=== PATIENT | male | born 1970 | race Caucasian/White ===

== ENCOUNTER 2016-07-10 18:46 | Inpatient (IN) | payer SELFPAY ==
[~2016-07-10] VITALS: Ht 175.3 cm; Wt 80.0 kg
[~2016-07-10 18:46] MED LIST: CLIN150 PO; DILA4TAB10 PO; LISI20 PO
[2016-07-10 18:48] VITALS: BP 225/141; PULSE 90; RESP 17; TEMP 98.4; O2SAT 97
[2016-07-10] MEDS ORDERED: LIDOCAINE 1%/EPINEPHrine 1:100,000 SOLN 20 ML VIAL INFIL ONE (19:30)
[2016-07-10] MEDS ORDERED: VANCOMYCIN INJ 1,000 MG in SODIUM CHLOR 0.9% 250 ML INJ 250 ML IV ONE (19:30)
--- NOTE | 2016-07-10 19:33 | PD ---
HPI Chief Complaint: Hypertension Time Seen by Provider: 19:31 Travel History International Travel<30 days: No Contact w/Intl Traveler<30days: No Traveled to known affect area: No History of Present Illness HPI 46-year-old male presents to the emergency department for evaluation of abscess to his right antecubital area. Patient states he hit his arm against a fence on Thursday, 3 days ago and the symptoms started after that. He states the swelling has worsened just since waiting in the waiting room. He denies any current fevers. Patient does report a history of IV drug use. He states that he was clean for a while, but did shoot up Dilaudid 3 days ago. However, he states he has not injected in the area of the abscess. [facility] Past Medical History Atrial Fibrillation: No Cancer: No Cardiovascular Problems: No Diminished Hearing: No Endocrine: No Genitourinary: No Hypertension: Yes Immune Disorder: Yes Musculoskeletal: No Neurologic: No Psychiatric: No Reproductive: No Respiratory: No Integumentary: Yes (absess) Social History Alcohol Use: Yes Tobacco Use: Yes Substance Use: Yes (IV drug user, dilaudid, oxy, barb) Allergies-Medications (Allergen,Severity, Reaction): Coded Allergies: No Known Allergies (Verified , 07/10/16) Reported Meds & Prescriptions Reported Meds & Active Scripts Active Reported Hydromorphone (Hydromorphone HCl) 4 Mg Tab 4 Mg PO Q4H PRN Review of Systems Except as stated in HPI: all other systems reviewed are Neg Physical Exam Narrative GENERAL: Well-developed well-nourished male patient, afebrile. SKIN: Warm and dry. Patient has fluctuant/induration that measures 10 cm x 7 cm to the right antecubital area with surrounding erythema that measures 20 cm x 17 cm. HEAD: Normocephalic. EYES: No scleral icterus. No injection or drainage. NECK: Supple, trachea midline. No JVD or lymphadenopathy. CARDIOVASCULAR: Regular rate and rhythm without murmurs, gallops, or rubs. Right radial pulse 2+. RESPIRATORY: Breath sounds equal bilaterally. No accessory muscle use. GASTROINTESTINAL: Abdomen soft, non-tender, nondistended. MUSCULOSKELETAL: No cyanosis, or edema. Data Data Last Documented VS Vital Signs Date Time Temp Pulse Resp B/P Pulse Ox O2 Delivery O2 Flow Rate FiO2 07/10/16 18:48 98.4 90 17 225/141 97 Orders Basic Metabolic Panel (Bmp) (07/10/16 19:28) Complete Blood Count With Diff (07/10/16 19:28) Blood Culture (07/10/16 19:28) Iv Access Insert/Monitor (07/10/16 19:28) Lidocai-Epi 1%-1:100,000 Inj (Xylocaine- (07/10/16 19:30) Lactic Acid Sepsis Protocol (07/10/16 19:28) Vancomycin Inj (Vancomycin Inj) (07/10/16 19:30) Wound Culture And Gram Stain (07/10/16 19:33) Hydralazine Inj (Apresoline Inj) (07/10/16 20:30) Labs Laboratory Tests Test 07/10/16 07/10/16 19:00 19:10 Lactic Acid Level 1.0 mmol/L White Blood Count 12.9 TH/MM3 Red Blood Count 5.03 MIL/MM3 Hemoglobin 14.6 GM/DL Hematocrit 42.6 % Mean Corpuscular Volume 84.7 FL Mean Corpuscular Hemoglobin 29.0 PG Mean Corpuscular Hemoglobin 34.3 % Concent Red Cell Distribution Width 14.2 % Platelet Count 153 TH/MM3 Mean Platelet Volume 9.0 FL Neutrophils (%) (Auto) 78.8 % Lymphocytes (%) (Auto) 10.4 % Monocytes (%) (Auto) 8.9 % Eosinophils (%) (Auto) 1.6 % Basophils (%) (Auto) 0.3 % Neutrophils # (Auto) 10.2 TH/MM3 Lymphocytes # (Auto) 1.3 TH/MM3 Monocytes # (Auto) 1.1 TH/MM3 Eosinophils # (Auto) 0.2 TH/MM3 Basophils # (Auto) 0.0 TH/MM3 CBC Comment DIFF FINAL Differential Comment Sodium Level 132 MEQ/L Potassium Level 3.3 MEQ/L Chloride Level 95 MEQ/L Carbon Dioxide Level 27.8 MEQ/L Anion Gap 9 MEQ/L Blood Urea Nitrogen 13 MG/DL Creatinine 1.11 MG/DL Estimat Glomerular Filtration 71 ML/MIN Rate Random Glucose 89 MG/DL Calcium Level 8.8 MG/DL MDM Medical Decision Making Medical Screen Exam Complete: Yes Emergency Medical Condition: Yes Medical Record Reviewed: Yes Differential Diagnosis Abscess versus cellulitis versus sepsis Narrative Course 46-year-old male presents to the emergency department for evaluation of abscess to his right antecubital area a has had for 3 days. Patient does have history of IV drug use. CBC, BMP, blood cultures 2, lactic acid are ordered and pending. Patient is given vancomycin 1 g IV. Patient gives verbal consent for incision and drainage. CBC shows elevated WBC count at 12.9, slight neutrophilia 78.8. BMP shows slight hyponatremia of 132, hypokalemia of 3.3. Lactic acid is 1.0. [facility] is paged for admission. Dr. Early accepted admission. Procedures Procedure Narrative INCISION AND DRAINAGE OF ABSCESS: The area was prepped and was sterilely draped. A subcutaneous wheal of 1% Xylocaine with epinephrine with a total number 6 mL was used to anesthetize the area. The area was properly anesthetized. A number 11 scalpel was used to make a 1 -cm incision across the area of the abscess. Cultures were obtained. The abscess was drained an irrigated with normal saline. Quarter inch iodoform packing was placed in the wound. Sterile dressing applied. Patient advised to have packing removed in two days. Diagnosis Primary Impression: Skin abscess Qualified Code: L02.413 - Cutaneous abscess of right upper extremity Additional Impression: Cellulitis of arm, right Admitting Information Admitting Physician Requests: Admit Charisse Medina Jul 10, 2016 19:33
[2016-07-10] MEDS ORDERED: HYDR4TAB PO (19:41)
[2016-07-10 20:07] LABS: AUTOMATED NEUTROPHIL # 10.2 TH/MM3 (1.8-7.7); BASOPHIL % 0.3 % (0.0-2.0); EOSINOPHIL # 0.2 TH/MM3 (0-0.4); EOSINOPHIL % 1.6 % (0.0-4.0); HEMATOCRIT 42.6 % (39.0-51.0); HEMO FLAGS DIFF FINAL; LYMPH % 10.4 % (9.0-44.0); LYMPHOCYTE # 1.3 TH/MM3 (1.0-4.8); MEAN CELL VOLUME 84.7 FL (80.0-100.0); MEAN CORPUSCULAR HGB CONC 34.3 % (32.0-36.0); MONO % 8.9 % (0.0-8.0); NEUT % 78.8 % (16.0-70.0); PLATELET COUNT 153 TH/MM3 (150-450); RED BLOOD COUNT 5.03 MIL/MM3 (4.50-5.90); RED CELL DISTRIBUTION WIDTH 14.2 % (11.6-17.2); WHITE BLOOD COUNT 12.9 TH/MM3 (4.0-11.0)
[2016-07-10 20:20] LABS: BICARBONATE 27.8 MEQ/L (21.0-32.0); POTASSIUM 3.3 MEQ/L (3.5-5.1)
[2016-07-10] MEDS ORDERED: hydrALAZINE HCL 20 MG/ML VIAL IV PUSH ONE (20:30)
[2016-07-10] MEDS ORDERED: oxyCODONE/ACETAMINOPHEN 5 MG/325 MG TAB PO ONE (21:00)
[2016-07-10] MEDS ORDERED: MORPHINE SULFATE 4 MG/ML INJ IV PUSH ONE (23:15)
--- NOTE | 2016-07-10 23:23 | HHI.HP ---
HPI Service [facility] Primary Care Physician No Primary Care Physician Admission Diagnosis abscess, cellulitis, IVDU Diagnoses: Chief Complaint: Right arm abscess Travel History International Travel<30 Days: No Contact w/Intl Traveler <30 Da: No Traveled to Known Affected Are: No History of Present Illness 47-year-old male IV drug abuser presents to the emergency room with complaint of redness and abscess in the right antecubital area. Patient admits that he used that area for IV drug use. He is a very poor historian about timing of events but believes it has been 3 days since he noticed the redness and swelling. He has been getting worse which prompted his emergency room visit. He is unsure whether or not his at fevers or chills. He denies shortness of breath. Evaluation in the emergency room revealed a significant right antecubital abscess. This was drained in the ED. Currently patient reports significant pain in the area. Review of Systems ROS Limitations: Poor Historian Respiratory: DENIES: Cough, Shortness of breath Cardiovascular: DENIES: Chest pain Integumentary: COMPLAINS OF: Rash Neurologic: DENIES: Headache, Localized weakness Other All other systems reviewed are negative. Past Family Social History Past Medical History Hypertension: Untreated. IV drug abuser Past Surgical History Bilateral wrist abscess incision and drainage/washout Reported Medications Reported Meds & Active Scripts Active Reported Hydromorphone (Hydromorphone HCl) 4 Mg Tab 4 Mg PO Q4H PRN Allergies: Coded Allergies: No Known Allergies (Verified , 07/10/16) Family History Reviewed and noncontributory. Social History Patient admits to smoking 1 pack per day, occasional alcohol, admits to using IV Dilaudid, oxycodone, Roxicodone. Physical Exam Vital Signs Vital Signs Date Time Temp Pulse Resp B/P Pulse Ox O2 Delivery O2 Flow Rate FiO2 07/10/16 18:48 98.4 90 17 225/141 97 Physical Exam GENERAL: Disheveled male SKIN: The patient has multiple needle mcclain bilateral arms. On the right antecubital area there is a large area of fluctuance, approximately 10 x 6 cm there is surrounding erythema extending to the mid forearm and mid upper arm HEAD: Atraumatic. Normocephalic. No temporal or scalp tenderness. EYES: Pupils equal round and reactive. Extraocular motions intact. No scleral icterus. No injection or drainage. ENT: Nose without bleeding, purulent drainage or septal hematoma. Throat without erythema, tonsillar hypertrophy or exudate. Uvula midline. Airway patent. NECK: Trachea midline. No JVD or lymphadenopathy. Supple, nontender, no meningeal signs. CARDIOVASCULAR: Regular rate and rhythm without. 2/6 KASSY murmur best heard in the tricuspid area RESPIRATORY: Clear to auscultation. Breath sounds equal bilaterally. No wheezes , rales, or rhonchi. GASTROINTESTINAL: Abdomen soft, non-tender, nondistended. No hepato-splenomegaly , or palpable masses. No guarding. MUSCULOSKELETAL: Extremities without clubbing, cyanosis, or edema. No joint tenderness, effusion, or edema noted. No calf tenderness. Negative Homans sign bilaterally. NEUROLOGICAL: Awake and alert. Cranial nerves II through XII intact. Motor and sensory grossly within normal limits. Five out of 5 muscle strength in all muscle groups. Normal speech. Laboratory Laboratory Tests Test 07/10/16 07/10/16 19:00 19:10 Lactic Acid Level 1.0 White Blood Count 12.9 Red Blood Count 5.03 Hemoglobin 14.6 Hematocrit 42.6 Mean Corpuscular Volume 84.7 Mean Corpuscular Hemoglobin 29.0 Mean Corpuscular Hemoglobin 34.3 Concent Red Cell Distribution Width 14.2 Platelet Count 153 Mean Platelet Volume 9.0 Neutrophils (%) (Auto) 78.8 Lymphocytes (%) (Auto) 10.4 Monocytes (%) (Auto) 8.9 Eosinophils (%) (Auto) 1.6 Basophils (%) (Auto) 0.3 Neutrophils # (Auto) 10.2 Lymphocytes # (Auto) 1.3 Monocytes # (Auto) 1.1 Eosinophils # (Auto) 0.2 Basophils # (Auto) 0.0 CBC Comment DIFF FINAL Differential Comment Sodium Level 132 Potassium Level 3.3 Chloride Level 95 Carbon Dioxide Level 27.8 Anion Gap 9 Blood Urea Nitrogen 13 Creatinine 1.11 Estimat Glomerular Filtration 71 Rate Random Glucose 89 Calcium Level 8.8 Date/Time Procedure Status Source Growth 07/10/16 20:15 Gram Stain Received Wound Arm Pending 07/10/16 20:15 Wound Culture Received Wound Arm Pending 07/10/16 19:00 Aerobic Blood Culture Received Blood Peripheral Pending 07/10/16 19:00 Anaerobic Blood Culture Received Blood Peripheral Pending Result Diagram: 07/10/16190907/10/161909 Assessment and Plan Problem List: (1) Abscess of right arm ICD Code: L02.413 Status: Acute (2) IV drug user ICD Code: F19.90 Status: Acute (3) Hypertension ICD Code: I10 Status: Acute (4) Heart murmur ICD Code: R01.1 Status: Acute Assessment and Plan 46-year-old male IV drug user with: Right arm abscess: Status post I&D in the emergency room. There is a rather large area of fluctuance and I'm concerned for deeper abscesses. - Will obtain a CT scan of the right upper extremity. He may need general surgery consult for deeper debridement. - Continue vancomycin - Awaiting wound cultures. Follow blood cultures. - Percocet every 4 hours as needed for pain. Morphine IV for breakthrough. - Elevate arm IV drug user: The patient has been counseled on the detrimental effect of IV drug use on his health. He would benefit from an inpatient drug rehabilitation facility. - Ativan and clonidine as needed for withdrawal. - Follow blood cultures. High risk for bacteremia and endocarditis. Hypertension: Untreated. Patient has not been compliant with medications. - Start lisinopril 20 mg daily - Clonidine as needed Tobacco abuse: Patient was counseled. GI prophylaxis: Stool softener PRN constipation. DVT PPx: SCDs Physician Certification 2 Midnight Certification Type: Admission for Inpatient Services Order for Inpatient Services The services are ordered in accordance with Medicare regulations or non- Medicare payer requirements, as applicable. In the case of services not specified as inpatient-only, they are appropriately provided as inpatient services in accordance with the 2-midnight benchmark. Estimated LOS (days): 5 days is the estimated time the patient will need to remain in the hospital, assuming treatment plan goals are met and no additional complications. Post-Hospital Plan: Home Adriel Early MD Jul 10, 2016 23:23
[2016-07-10 23:25] VITALS: BP 188/120; PULSE 77; RESP 24; O2SAT 98
[2016-07-11] MEDS ORDERED: ONDANSETRON HCL 4 MG/2 ML VIAL IVP PRN
[2016-07-11] MEDS ORDERED: SODIUM CHLORIDE 0.9% FLUSH 5 ML FLUSH FLUSH PRN
[2016-07-11] MEDS ORDERED: POTASSIUM CHLORIDE 20 MEQ CONTROLLED RELEASE TAB PO ONE
[2016-07-11] MEDS ORDERED: NALOXONE HCL 0.4 MG/ML AMP IV PRN
[2016-07-11] MEDS ORDERED: ACETAMINOPHEN 325 MG TAB PO PRN
[2016-07-11] MEDS ORDERED: ENALAPRILAT 1.25 MG/ML VIAL IV PUSH PRN
[2016-07-11] MEDS ORDERED: Vancomycin Consult Pharmacy 1 EA OTHER SCH (00:15)
[2016-07-11 01:07] VITALS: BP 135/86
[2016-07-11] MEDS ORDERED: cloNIDine HCL 0.1 MG TAB PO PRN (01:15)
[2016-07-11 01:43] VITALS: BP 146/88; PULSE 69; RESP 20; TEMP 98.4; O2SAT 96
[2016-07-11] MEDS ORDERED: IOHEXOL 350 MG/ML 10 ML VIAL (for RAD DIAG) IV ONE (03:41)
--- NOTE | 2016-07-11 03:54 | RADRPT ---
EXAM DATE/TIME: 07/11/2016 03:24 [facility] COMPARISON: No previous studies available for comparison. INDICATIONS : Right elbow swelling. Evaluate abscess. IV CONTRAST: 80 cc Omnipaque 350 (iohexol) IV RADIATION DOSE: 17.94 CTDIvol (mGy) MEDICAL HISTORY : Hypertension. IVDU SURGICAL HISTORY : None. ENCOUNTER: Initial ACUITY: 3 days PAIN SCALE: 7/10 LOCATION: Right elbow TECHNIQUE: Volumetric scanning of the elbow was performed. Using automated exposure control and adjustment of t he mA and/or kV according to patient size, radiation dose was kept as low as reasonably achievable to obtain optimal diagnostic quality images. FINDINGS: No definite fractures, dislocations, lytic, or sclerotic lesions are seen. There is extensive sw elling with subcutaneous edema in the patient's forearm. In the antecubital fossa superficially, ther e is an approximate 3.4 cm round area of fluid collection suspicious for abscess and in the center of it there are couple of blood vessels coursing through it. One of them appears to be a thrombosed vei n possibly superficial thrombophlebitis. CONCLUSION: Extensive swelling and subcutaneous edema with focal abscess in the antecubital fossa and superficial thrombophlebitis. Arcelia Issa MD on July 11, 2016 at 3:49 Board Certified Radiologist. This report was verified electronically.
[2016-07-11] MEDS ORDERED: VANCOMYCIN INJ 1,250 MG in SODIUM CHLOR 0.9% 250 ML INJ 250 ML IV SCH (04:00)
[2016-07-11 04:10] VITALS: BP 150/96; PULSE 75; RESP 19; TEMP 98; O2SAT 95
[2016-07-11] MEDS ORDERED: KETOROLAC TROMETHAMINE 60 MG/2 ML (IM) VIAL IM ONE (05:00)
[2016-07-11 07:50] LABS: AUTOMATED NEUTROPHIL # 7.9 TH/MM3 (1.8-7.7); BASOPHIL # 0.1 TH/MM3 (0-0.2); BASOPHIL % 0.5 % (0.0-2.0); EOSINOPHIL # 0.4 TH/MM3 (0-0.4); EOSINOPHIL % 3.2 % (0.0-4.0); HEMATOCRIT 39.6 % (39.0-51.0); HEMO FLAGS DIFF FINAL; LYMPH % 14.5 % (9.0-44.0); LYMPHOCYTE # 1.6 TH/MM3 (1.0-4.8); MEAN CELL VOLUME 85.1 FL (80.0-100.0); MEAN CORPUSCULAR HEMOGLOBIN 28.6 PG (27.0-34.0); MEAN CORPUSCULAR HGB CONC 33.6 % (32.0-36.0); NEUT % 69.8 % (16.0-70.0); PLATELET COUNT 153 TH/MM3 (150-450); RED BLOOD COUNT 4.65 MIL/MM3 (4.50-5.90); RED CELL DISTRIBUTION WIDTH 14.1 % (11.6-17.2); WHITE BLOOD COUNT 11.3 TH/MM3 (4.0-11.0)
[2016-07-11] MEDS ORDERED: LISINOPRIL 10 MG TAB PO SCH (09:00)
[2016-07-11] MEDS ORDERED: SODIUM CHLORIDE 0.9% FLUSH 5 ML FLUSH FLUSH SCH (09:00)
[2016-07-11 09:34] LABS: BICARBONATE 27.1 MEQ/L (21.0-32.0); POTASSIUM 3.2 MEQ/L (3.5-5.1)
[2016-07-12] MEDS ORDERED: PHARMACY ORDERED LAB XX ONE (03:45)
== END 2016-07-11 10:03 | disposition home or self-care (01) | DRG 603 ==
LOC: NEPA 18:46 → NEDA 20:42 → NEPFCDU 07-11 01:19
PROVIDERS: ADMIT Internal Medicine; ATTEND Internal Medicine
PROC: 0X9B0ZX Drainage of Right Elbow Region, Open Approach, Diagnostic (ICD-10-PCS; principal; 2016-07-10)
DX: L02.413 Cutaneous abscess of right upper limb (principal); I10 Essential (primary) hypertension; F19.10 Other psychoactive substance abuse, uncomplicated; F17.210 Nicotine dependence, cigarettes, uncomplicated; R01.1 Cardiac murmur, unspecified; Z91.14 Patient's other noncompliance with medication regimen; L03.113 Cellulitis of right upper limb
CPT/HCPCS: 10061; 73201; 80048; 83605; 85025; 86403; 87040; 87070; 87186; 87205; 96374; 96375; J0360; J1885; J2270; J3370; J7050; Q9967

== ENCOUNTER 2017-02-19 16:47 | Inpatient (IN) | payer SELFPAY ==
[~2017-02-19] VITALS: Ht 180.3 cm; Wt 79.1 kg
[2017-02-19] VITALS (7 sets, daily range): BP systolic 127–167; BP diastolic 69–120; PULSE 65–85; RESP 14–16; TEMP 100–102.3; O2SAT 97–99
[~2017-02-19 16:47] MED LIST changes: -CLIN150 PO; -DILA4TAB10 PO; +HYDR4TAB PO; -LISI20 PO; +VANCOMYCIN INJ 1,000 MG in SODIUM CHLOR 0.9% 250 ML INJ 250 ML IV ONE
[2017-02-19] MEDS ORDERED: VANCOMYCIN INJ 1,000 MG in SODIUM CHLOR 0.9% 250 ML INJ 250 ML IV STA (17:00)
[2017-02-19] MEDS ORDERED: ACETAMINOPHEN 325 MG TAB PO ONE (17:00)
[2017-02-19] MEDS ORDERED: SODIUM CHLOR 0.9% 1000 ML INJ 1,000 ML IV ONE ×2 (17:00)
[2017-02-19] MEDS ORDERED: SODIUM CHLOR 0.9% 1000 ML INJ 400 ML IV ONE (17:00)
[2017-02-19] MEDS ORDERED: PIPERACIL-TAZO 4.5 GM PREMIX 100 ML IV STA (17:00)
--- NOTE | 2017-02-19 17:15 | PD ---
HPI . Decreased level of consciousness Chief Complaint: Decreased level of consciousness Time Seen by Provider: 16:56 Travel History International Travel<30 days: No Contact w/Intl Traveler<30days: No History of Present Illness HPI Patient presents by [facility] with the chief complaint of decreased level of consciousness. He is an IV drug abuser. He has had redness and swelling of his left upper extremity for the last several days along with a fever. He started feeling disoriented today. Rescue was subsequently called and he was brought to the hospital. He is also complaining with cough. He is complaining of 10/10 pain in his left upper extremity. PFSH Past Medical History Atrial Fibrillation: No Cancer: No Cardiovascular Problems: No Diminished Hearing: No Endocrine: No Genitourinary: No Hypertension: Yes Immune Disorder: Yes Musculoskeletal: No Neurologic: No Psychiatric: No Reproductive: No Respiratory: No Integumentary: Yes (absess) Past Surgical History Other Surgery: Yes (hand ) Social History Alcohol Use: Yes (occasionaly ) Tobacco Use: Yes Substance Use: Yes (IV drug user, dilaudid, oxy, barb) Allergies-Medications (Allergen,Severity, Reaction): Coded Allergies: *MDRO Multi-Drug Resistant Organism (Verified Adverse Reaction, Unknown, ) MRSA (arm)-07/10/16 Reported Meds & Prescriptions Reported Meds & Active Scripts Active No Active Prescriptions or Reported Medications Review of Systems Except as stated in HPI: all other systems reviewed are Neg General / Constitutional: Positive: Fever, Chills Respiratory: Positive: Cough Musculoskeletal: Positive: Edema, Pain Skin: Positive Change in Pigmentation Physical Exam Narrative GENERAL: Lying on the stretcher with his eyes closed in no acute distress. He does respond appropriately to questions. SKIN: warm/dry. Left upper extremity is red, hot, swollen and tender. No fluctuance. No drainage. Track mcclain on both upper extremities. HEAD: Normocephalic. EYES: Pupils equal and round. No scleral icterus. No injection or drainage. ENT: No nasal bleeding or discharge. Mucous membranes pink and moist. NECK: Trachea midline. Full range of motion without pain.. CARDIOVASCULAR: Regular rate and rhythm. Heart sounds are normal. RESPIRATORY: No accessory muscle use. Clear to auscultation. Breath sounds equal bilaterally. GASTROINTESTINAL: Abdomen soft. Nontender. Bowel sounds present. Nondistended. . MUSCULOSKELETAL: No obvious deformities. NEUROLOGICAL: Awake and alert. No obvious cranial nerve deficits. Motor grossly within normal limits. Normal speech. PSYCHIATRIC: Appropriate mood and affect; insight and judgment poor. Data Data Last Documented VS Vital Signs Date Time Temp Pulse Resp B/P (MAP) Pulse Ox O2 Delivery O2 Flow Rate FiO2 02/19/17 17:22 81 16 167/120 (136) 99 Room Air 02/19/17 17:08 102.3 Orders Orders Complete Blood Count With Diff (02/19/17 17:00) Comprehensive Metabolic Panel (02/19/17 17:00) Lactic Acid Sepsis Protocol (02/19/17 17:00) Blood Culture (02/19/17 17:00) Chest, Single Ap (02/19/17 17:00) Ecg Monitoring (02/19/17 17:00) Iv Access Insert/Monitor (02/19/17 17:00) Oximetry (02/19/17 17:00) Acetaminophen (Tylenol) (02/19/17 17:00) Piperacil-Tazo 4.5 Gm Premix (Zosyn 4.5 (02/19/17 17:00) Vancomycin Inj (Vancomycin Inj) (02/19/17 17:00) Sodium Chlor 0.9% 1000 Ml Inj (Ns 1000 M (02/19/17 17:00) Sodium Chlor 0.9% 1000 Ml Inj (Ns 1000 M (02/19/17 17:00) Sodium Chlor 0.9% 1000 Ml Inj (Ns 1000 M (02/19/17 17:00) Labs Laboratory Tests Test 02/19/17 17:05 White Blood Count 22.3 TH/MM3 Red Blood Count 4.79 MIL/MM3 Hemoglobin 14.1 GM/DL Hematocrit 41.7 % Mean Corpuscular Volume 87.0 FL Mean Corpuscular Hemoglobin 29.4 PG Mean Corpuscular Hemoglobin Concent 33.8 % Red Cell Distribution Width 14.1 % Platelet Count 127 TH/MM3 Mean Platelet Volume 8.9 FL Neutrophils (%) (Auto) 85.0 % Lymphocytes (%) (Auto) 6.2 % Monocytes (%) (Auto) 8.6 % Eosinophils (%) (Auto) 0.0 % Basophils (%) (Auto) 0.2 % Neutrophils # (Auto) 19.0 TH/MM3 Lymphocytes # (Auto) 1.4 TH/MM3 Monocytes # (Auto) 1.9 TH/MM3 Eosinophils # (Auto) 0.0 TH/MM3 Basophils # (Auto) 0.0 TH/MM3 CBC Comment DIFF FINAL Differential Comment Blood Urea Nitrogen 20 MG/DL Creatinine 1.44 MG/DL Random Glucose 110 MG/DL Total Protein 7.3 GM/DL Albumin 3.1 GM/DL Calcium Level 8.4 MG/DL Alkaline Phosphatase 75 U/L Aspartate Amino Transf (AST/SGOT) 17 U/L Alanine Aminotransferase (ALT/SGPT) 25 U/L Total Bilirubin 0.9 MG/DL Sodium Level 131 MEQ/L Potassium Level 3.0 MEQ/L Chloride Level 92 MEQ/L Carbon Dioxide Level 30.1 MEQ/L Anion Gap 9 MEQ/L Estimat Glomerular Filtration Rate 52 ML/MIN Lactic Acid Level 0.9 mmol/L MDM Medical Decision Making Medical Screen Exam Complete: Yes Emergency Medical Condition: Yes Medical Record Reviewed: Yes (this patient has been seen here in the past for similar problems related to IV drug abuse.) Differential Diagnosis My differential diagnosis includes but is not limited to localized wound infection, cellulitis, abscess Narrative Course This patient presents with fevers and chills, decreased level of consciousness and redness and swelling of his left upper extremity. Septic workup has been initiated. Last Impressions Chest X-Ray 02/19/17 1700 Signed Impressions: Service Date/Time: , February 19, 2017 17:12 - CONCLUSION: No acute disease. There is no evidence of pneumonia. Austen Morrison MD CBC & BMP Diagram 02/19/17 17:05 Total Protein 7.3, Albumin 3.1 L, Calcium Level 8.4 L, Alkaline Phosphatase 75, Aspartate Amino Transf (AST/SGOT) 17, Alanine Aminotransferase (ALT/SGPT) 25, Total Bilirubin 0.9 Lactic acid is 0.9. Sepsis Criteria SIRS Criteria (2 or more): Temp > 100.9 or < 96.8, WBC > 74736, < 4000 or > 10 % bands Sepsis Criteria (SIRS+source): Infect source susp/known Criteria Outcome: Meets SIRS criteria, Meets sepsis criteria Diagnosis Primary Impression: Fever Qualified Codes: R50.9 - Fever, unspecified Additional Impressions: Cellulitis Qualified Codes: L03.114 - Cellulitis of left upper limb IV drug abuse Sepsis Qualified Codes: A41.9 - Sepsis, unspecified organism Admitting Information Admitting Physician Requests: Admit Scripts No Active Prescriptions or Reported Meds Condition: Florencia Barnes MD Feb 19, 2017 17:15
--- NOTE | 2017-02-19 17:51 | RADRPT ---
EXAM DATE/TIME: 02/19/2017 17:12 [facility] COMPARISON: CHEST SINGLE AP, April 02, 2015, 17:34. INDICATIONS : Cough. MEDICAL HISTORY : None. SURGICAL HISTORY : None. ENCOUNTER: Initial ACUITY: 1 day PAIN SCORE: 0/10 LOCATION: Bilateral chest FINDINGS: A single view of the chest demonstrates the lungs to be symmetrically aerated without evidence of mas s, infiltrate or effusion. The cardiomediastinal contours are unremarkable. Osseous structures are intact. CONCLUSION: No acute disease. There is no evidence of pneumonia. Austen Morrison MD on February 19, 2017 at 17:49 Board Certified Radiologist. This report was verified electronically.
[2017-02-19 17:52] LABS: BASOPHIL % 0.2 % (0.0-2.0); HEMATOCRIT 41.7 % (39.0-51.0); HEMO FLAGS DIFF FINAL; LYMPH % 6.2 % (9.0-44.0); LYMPHOCYTE # 1.4 TH/MM3 (1.0-4.8); MEAN CORPUSCULAR HEMOGLOBIN 29.4 PG (27.0-34.0); MEAN CORPUSCULAR HGB CONC 33.8 % (32.0-36.0); MONO % 8.6 % (0.0-8.0); PLATELET COUNT 127 TH/MM3 (150-450); RED BLOOD COUNT 4.79 MIL/MM3 (4.50-5.90); RED CELL DISTRIBUTION WIDTH 14.1 % (11.6-17.2); WHITE BLOOD COUNT 22.3 TH/MM3 (4.0-11.0)
[2017-02-19 18:08] LABS: ALT (GPT) 25 U/L (12-78); ANION GAP 9 MEQ/L (5-15); AST (GOT) 17 U/L (15-37); BICARBONATE 30.1 MEQ/L (21.0-32.0); BLOOD UREA NITROGEN 20 MG/DL (7-18); CHLORIDE 92 MEQ/L (98-107); GLOMERULAR FILTRATION RATE 52 ML/MIN (>89); SODIUM (NA) 131 MEQ/L (136-145)
[2017-02-19 18:10] LABS: ALKALINE PHOSPHATASE 75 U/L (45-117); TOTAL BILIRUBIN ADULT 0.9 MG/DL (0.2-1.0)
--- NOTE | 2017-02-19 18:36 | HHI.HP ---
[facility] Primary Care Physician No Primary Care Physician Admission Diagnosis sepsis, cellulitis, IVDA Diagnoses: Chief Complaint: Left arm cellulitis Travel History International Travel<30 Days: No Contact w/Intl Traveler <30 Da: No Traveled to Known Affected Are: No History of Present Illness This is a 47-year-old male with current IV drug user with Dilaudid, oxycodone, and Roxicodone who presented with fatigue and left arm cellulitis. Patient stated that he last used IV drugs 2 days ago. He has some swelling then erythema after use. Patient stated that since it got worse he presented to the ED. He denies any other types of drug use. Stated he stopped smoking tobacco long time ago. Denies any alcohol use. Patient is lethargic during the interview but he is AAO 3. He is able to answer question appropriately. His nurse is at the bedside. All other review of symptoms reviewed and negative. Past Family Social History Past Medical History Hypertension: Untreated. IV drug abuser Past Surgical History Bilateral wrist abscess incision and drainage/washout Reported Medications Reported Meds & Active Scripts Active No Active Prescriptions or Reported Medications Allergies: Coded Allergies: *MDRO Multi-Drug Resistant Organism (Verified Adverse Reaction, Unknown, ) MRSA (arm)-07/10/16 Active Ordered Medications Current Medications Acetaminophen (Tylenol) 650 mg ONCE ONCE PO Last administered on 02/19/17 17: 19; Start 02/19/17 at 17:00; Stop 02/19/17 at 17:04; Status DC Piperacillin Sod/ Tazobactam Sod 100 ml @ 200 mls/hr ONCE STAT IV Last administered on 02/19/17 17:19; Start 02/19/17 at 17:00; Stop 02/19/17 at 17:29 ; Status DC Vancomycin HCl 1000 mg/Sodium Chloride 250 ml @ 250 mls/hr ONCE STAT IV Last administered on 02/19/17 17:19; Start 02/19/17 at 17:00; Stop 02/19/17 at 17:59 ; Status DC Sodium Chloride 1,000 ml @ 1,000 mls/hr Q1H ONCE IV Last administered on 17:15; Start 02/19/17 at 17:00; Stop 02/19/17 at 17:59; Status DC Sodium Chloride 1,000 ml @ 1,000 mls/hr Q1H ONCE IV Last administered on 17:16; Start 02/19/17 at 17:00; Stop 02/19/17 at 17:59; Status DC Sodium Chloride 400 ml @ 1,000 mls/hr Q24M ONCE IV Last administered on 17:16; Start 02/19/17 at 17:00; Stop 02/19/17 at 17:23; Status DC Sodium Chloride 1,000 ml @ 150 mls/hr Q6H40M IV ; Start 02/19/17 at 18:31; Status UNV Sodium Chloride (NS Flush) 2 ml UNSCH PRN IV FLUSH FLUSH AFTER USING IV ACCESS ; Start 02/19/17 at 18:45; Status UNV Sodium Chloride (NS Flush) 2 ml BID IV FLUSH ; Start 02/19/17 at 21:00; Status UNV Acetaminophen (Tylenol) 650 mg Q4H PRN PO TEMP > 100.4; Start 02/19/17 at 18:45 ; Status UNV Ondansetron HCl (Zofran Inj) 4 mg Q6H PRN IVP NAUSEA OR VOMITING; Start at 18:45; Status UNV Enoxaparin Sodium (Lovenox Inj) 40 mg Q24H SQ ; Start 02/19/17 at 18:45; Status UNV Naloxone HCl (Narcan Inj) 0.4 mg UNSCH PRN IV SEE LABEL COMMENTS; Start at 18:45; Status UNV Senna/Docusate Sodium (Pearl-Colace) 1 tab BID PO ; Start 02/19/17 at 21:00; Status UNV Magnesium Hydroxide (Milk Of Magnesia Liq) 30 ml Q12H PRN PO MILD - MODERATE CONSTIPATION; Start 02/19/17 at 18:45; Status UNV Sennosides (Senokot) 17.2 mg Q12H PRN PO MODERATE - SEVERE CONSTIPATION; Start 02/19/17 at 18:45; Status UNV Bisacodyl (Dulcolax Supp) 10 mg DAILY PRN RECTAL SEVERE CONSITIPATION; Start at 18:45; Status UNV Family History Family history reviewed negative. Social History Denies any tobacco use. Denies alcohol use. IV drugs with Dilaudid, oxycodone and roxycodone. Physical Exam Vital Signs Vital Signs Date Time Temp Pulse Resp B/P (MAP) Pulse Ox O2 Delivery O2 Flow Rate FiO2 02/19/17 18:34 73 14 132/81 (98) 97 Room Air 02/19/17 17:22 81 16 167/120 (136) 99 Room Air 02/19/17 17:11 99 Room Air 02/19/17 17:08 102.3 85 15 162/105 (124) 98 02/19/17 17:05 102.3 85 16 162/105 (124) 97 Room Air Physical Exam GENERAL: This is a well-nourished, well-developed patient, in no apparent distress but who is lethargic. SKIN: Left forearm positive for cellulitis, swelling, induration, tenderness to palpation. HEAD: Atraumatic. Normocephalic. No temporal or scalp tenderness. EYES: Pupils equal round and reactive. Extraocular motions intact. No scleral icterus. No injection or drainage. ENT: Nose without bleeding, purulent drainage or septal hematoma. Throat without erythema, tonsillar hypertrophy or exudate. Uvula midline. Airway patent. NECK: Trachea midline. No JVD or lymphadenopathy. Supple, nontender, no meningeal signs. CARDIOVASCULAR: Regular rate and rhythm without murmurs, gallops, or rubs. RESPIRATORY: Clear to auscultation. Breath sounds equal bilaterally. No wheezes , rales, or rhonchi. GASTROINTESTINAL: Abdomen soft, non-tender, nondistended. No hepato-splenomegaly , or palpable masses. No guarding. MUSCULOSKELETAL: Extremities without clubbing, cyanosis, or edema. No joint tenderness, effusion, or edema noted. No calf tenderness. Negative Homans sign bilaterally. NEUROLOGICAL: Lethargic AAO 3. Cranial nerves II through XII intact. Motor and sensory grossly within normal limits. Laboratory Laboratory Tests Test 02/19/17 17:05 White Blood Count 22.3 Red Blood Count 4.79 Hemoglobin 14.1 Hematocrit 41.7 Mean Corpuscular Volume 87.0 Mean Corpuscular Hemoglobin 29.4 Mean Corpuscular Hemoglobin Concent 33.8 Red Cell Distribution Width 14.1 Platelet Count 127 Mean Platelet Volume 8.9 Neutrophils (%) (Auto) 85.0 Lymphocytes (%) (Auto) 6.2 Monocytes (%) (Auto) 8.6 Eosinophils (%) (Auto) 0.0 Basophils (%) (Auto) 0.2 Neutrophils # (Auto) 19.0 Lymphocytes # (Auto) 1.4 Monocytes # (Auto) 1.9 Eosinophils # (Auto) 0.0 Basophils # (Auto) 0.0 CBC Comment DIFF FINAL Differential Comment Blood Urea Nitrogen 20 Creatinine 1.44 Random Glucose 110 Total Protein 7.3 Albumin 3.1 Calcium Level 8.4 Alkaline Phosphatase 75 Aspartate Amino Transf (AST/SGOT) 17 Alanine Aminotransferase (ALT/SGPT) 25 Total Bilirubin 0.9 Sodium Level 131 Potassium Level 3.0 Chloride Level 92 Carbon Dioxide Level 30.1 Anion Gap 9 Estimat Glomerular Filtration Rate 52 Lactic Acid Level 0.9 Date/Time Source Procedure Growth Status 02/19/17 17:05 Blood Peripheral Aerobic Blood Culture Pending Received 02/19/17 17:05 Blood Peripheral Anaerobic Blood Culture Pending Received Result Diagram: 02/19/17 1705 02/19/17 170 Imaging Last Impressions Chest X-Ray 02/19/17 170 Signed Impressions: Service Date/Time: January 17:12 - CONCLUSION: No acute disease. There is no evidence of pneumonia. MD Natalie Pradhan VTE Risk Assessment Caprini VTE Risk Assessment: Mod/High Risk (score >= 2) Caprini Risk Assessment Model Point Value = 1 Point Value = 2 Point Value = 3 Point Value = 5 Age 41-60 Minor surgery BMI > 25 kg/m2 Swollen legs Varicose veins or History of unexplained or recurrent spontaneous Oral contraceptives or hormone replacement Sepsis (< 1 month) Serious lung disease, including pneumonia (< 1 month) Abnormal pulmonary function Acute myocardial infarction Congestive heart failure (< 1 month) History of inflammatory bowel disease Medical patient at bed rest Age 61-74 Arthroscopic surgery Major open surgery (> 45 min) Laparoscopic surgery (> 45 min) Malignancy Confined to bed (> 72 hours) Immobilizing plaster cast Central venous access Age >= 75 History of VTE Family history of VTE Factor V Leiden Prothrombin [id number] Lupus anticoagulant Anticardiolipin antibodies Elevated serum homocysteine Heparin-induced thrombocytopenia Other congenital or acquired thrombophilia Stroke (< 1 month) Elective arthroplasty Hip, pelvis, or leg fracture Acute spinal cord injury (< 1 month) Prophylaxis Regimen Total Risk Factor Score Risk Level Prophylaxis Regimen 0-1 Low Early ambulation 2 Moderate Order ONE of the following: *Sequential Compression Device (SCD) *Heparin 5000 units SQ BID 3-4 Higher Order ONE of the following medications: *Heparin 5000 units SQ TID *Enoxaparin/Lovenox 40 mg SQ daily (WT < 150 kg, CrCl > 30 mL/min) *Enoxaparin/Lovenox 30 mg SQ daily (WT < 150 kg, CrCl > 10-29 mL/min) *Enoxaparin/Lovenox 30 mg SQ BID (WT < 150 kg, CrCl > 30 mL/min) AND/OR *Sequential Compression Device (SCD) 5 or more Highest Order ONE of the following medications: *Heparin 5000 units SQ TID (Preferred with Epidurals) *Enoxaparin/Lovenox 40 mg SQ daily (WT < 150 kg, CrCl > 30 mL/min) *Enoxaparin/Lovenox 30 mg SQ daily (WT < 150 kg, CrCl > 10-29 mL/min) *Enoxaparin/Lovenox 30 mg SQ BID (WT < 150 kg, CrCl > 30 mL/min) AND *Sequential Compression Device (SCD) Assessment and Plan Assessment and Plan 47-year-old IV drug user who presented with left arm cellulitis Sepsis -Patient has cellulitis, leukocytosis, and fever. He meets sepsis criteria. -He received IV fluid bolus. We will continue with maintenance fluids. We treat with vancomycin and Zosyn. He already received 1 dose by ED physician. -Blood cultures already obtained. Due to concerns for endocarditis/bacteremia will get an echo since he is an IV drug user. Consult infectious disease. Left arm cellulitis and IV drug user -Will treat patient empirically with vancomycin and Zosyn. -Continue to monitor clinically. -Since he does have an area of induration will get an Doppler. This may be due to thrombophlebitis. IV drug user with Dilaudid, Roxicodone, oxycodone -Education given to patient stating that continue use can lead to . Patient stated he understood. Renal insufficiency -Most likely prerenal. Baseline was creatinine 1.01. Currently today is 1.44. -Avoid nephrotoxins. Will give IVF. -Strict ins and outs. Continue to monitor creatinine GFR Hypokalemia -replaces as needed. DVT prophylaxis -Lovenox renally dosed. Code Status full Discussed Condition With patient and nurse Physician Certification 2 Midnight Certification Type: Admission for Inpatient Services Order for Inpatient Services The services are ordered in accordance with Medicare regulations or non- Medicare payer requirements, as applicable. In the case of services not specified as inpatient-only, they are appropriately provided as inpatient services in accordance with the 2-midnight benchmark. Estimated LOS (days): 5 5 days is the estimated time the patient will need to remain in the hospital, assuming treatment plan goals are met and no additional complications. Post-Hospital Plan: [place] Aurora Huerta MD Feb 19, 2017 18:36
[2017-02-19] MEDS ORDERED: NALOXONE HCL 0.4 MG/ML AMP IV PRN (18:45)
[2017-02-19] MEDS ORDERED: Vancomycin Consult Pharmacy 1 EA OTHER SCH (18:45)
[2017-02-19] MEDS ORDERED: LACTULOSE SYRUP 20 GM/30 ML CUP PO PRN (18:45)
[2017-02-19] MEDS ORDERED: MAGNESIUM HYDROXIDE SUSP 30 ML CUP PO PRN (18:45)
[2017-02-19] MEDS ORDERED: BISACODYL 10 MG SUPP RECTAL PRN (18:45)
[2017-02-19] MEDS ORDERED: SENNOSIDES 8.6 MG TAB PO PRN (18:45)
[2017-02-19] MEDS ORDERED: SODIUM CHLORIDE 0.9% FLUSH 10 ML FLUSH IV FLUSH PRN (18:45)
[2017-02-19] MEDS ORDERED: ONDANSETRON HCL 4 MG/2 ML VIAL IVP PRN (18:45)
[2017-02-19] MEDS ORDERED: ACETAMINOPHEN 325 MG TAB PO PRN (18:45)
[2017-02-19] MEDS ORDERED: ENOXAPARIN SODIUM 40 MG/0.4 ML SYRINGE SQ SCH (18:45)
--- NOTE | 2017-02-19 20:49 | RADRPT ---
EXAM DATE/TIME: 02/19/2017 19:30 [facility] COMPARISON: No previous studies available for comparison. INDICATIONS : Left arm swelling. MEDICAL HISTORY : Hypertension. MRSA. Abcsess. IV drug user. SURGICAL HISTORY : Hand surgery. ENCOUNTER: Initial ACUITY: 2 day PAIN SCORE: 4/10 LOCATION: Left arm. FINDINGS: There is spontaneous flow documented in the brachial, basilic, cephalic, axillary, and subclavian vei ns. The vessels are compressible and augmentation response is documented. No filling defects are se en. The flow is phasic with respiration. Direction of flow in the jugular vein is caudal. There is a complex mass/fluid collection seen in the left antecubital fossa region measuring 5.6 x 3. 8 x 2.1 cm. There is superficial edema seen. CONCLUSION: 1. No DVT. 2. 5.6 cm complex mass/fluid collection likely related to an abscess. Shan Herr MD on February 19, 2017 at 20:45 Board Certified Radiologist. This report was verified electronically.
[2017-02-19] MEDS: SODIUM CHLORIDE 0.9% FLUSH 10 ML FLUSH IV FLUSH SCH (21:00)
[2017-02-19] MEDS ORDERED: POTASSIUM CHLORIDE 20 MEQ CONTROLLED RELEASE TAB PO ONE (22:00)
[2017-02-19] MEDS: SODIUM CHLOR 0.9% 1000 ML INJ 1,000 ML IV SCH (22:53)
[2017-02-19] MEDS ORDERED: ENOXAPARIN SODIUM 30 MG/0.3 ML SYRINGE SQ SCH (23:00)
[2017-02-20] VITALS (7 sets, daily range): BP systolic 152–164; BP diastolic 94–111; PULSE 71–79; RESP 17–20; TEMP 97.6–100.2; O2SAT 95–98
[2017-02-20] MEDS: DOCUSATE SODIUM 50 MG/SENNA 8.6 MG TAB PO SCH ×3 (01:02→21:00)
[2017-02-20] MEDS: PIPERACIL-TAZO 3.375 GM PREMIX 50 ML IV SCH ×5 (01:04→23:42)
[2017-02-20] MEDS: SODIUM CHLOR 0.9% 1000 ML INJ 1,000 ML IV SCH ×2 (01:11→06:05)
[2017-02-20] MEDS: SODIUM CHLORIDE 0.9% FLUSH 10 ML FLUSH IV FLUSH SCH ×2 (08:06→21:00)
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
[2017-02-20] MEDS ORDERED: amLODIPine BESYLATE 5 MG TAB PO ONE (11:00)
[2017-02-20] MEDS: traMADol HCL 50 MG TAB PO PRN ×2 (11:15→20:36)
[2017-02-20] MEDS ORDERED: HALOPERIDOL LACTATE 5 MG/ML AMP IM PRN (12:30)
[2017-02-20] MEDS ORDERED: LORazepam 2 MG/ML VIAL IV PUSH PRN ×3 (12:30)
[2017-02-20] MEDS ORDERED: FLUMAZENIL 0.5 MG/5 ML VIAL IV PUSH PRN (12:30)
[2017-02-20] MEDS ORDERED: HEPARIN SODIUM - SQ 10,000 UNITS/ML VIAL SQ SCH (12:30)
[2017-02-20] MEDS: FOLIC ACID 1 MG TAB PO SCH (13:22)
[2017-02-20] MEDS: PANTOPRAZOLE SOD 40 MG DELAYED RELEASE TAB PO SCH (13:22)
[2017-02-20] MEDS: MULTIVITAMINS/MINERALS THERAPEUTIC TAB PO SCH (13:22)
[2017-02-20] MEDS: VANCOMYCIN INJ 1,200 MG in SODIUM CHLOR 0.9% 250 ML INJ 250 ML IV SCH (13:22)
[2017-02-20] MEDS: THIAMINE HCL 100 MG TAB PO SCH (13:22)
--- NOTE | 2017-02-20 16:01 | ECHRPT ---
Indication: SEPSIS ENDOCARDITIS CONCLUSIONS Normal left ventricular size. Wall thickness is normal. The left ventricular systolic function is mildly reduced with an estimated ejection fraction in the range of 45- 50%. Global hypokinesis. Mild mitral valve regurgitation. Trace aortic valve regurgitation. BP: 167 / 120 HR: 85 Rhythm: Sinus Technical Quality:Good FINDINGS LEFT VENTRICLE Normal left ventricular size. Wall thickness is normal. The left ventricular systolic function is mildly reduced with an estimated ejection fraction in the range of 45- 50%. RIGHT VENTRICLE Normal right ventricular size and systolic function. LEFT ATRIUM The left atrial size is normal. RIGHT ATRIUM The right atrial size is normal. ATRIAL SEPTUM Normal atrial septal thickness without atrial level shunting by limited color doppler interrogation. AORTA The aortic root and proximal ascending aorta are normal in size on limited imaging. MITRAL VALVE Mild mitral valve regurgitation. Mobile echodensity is noted on the mitral valve consistent with vegetation. Moderate thickening of the mitral valve leaflets. AORTIC VALVE Trace aortic valve regurgitation. TRICUSPID VALVE Structurally normal tricuspid valve. No tricuspid valve stenosis or regurgitation. PULMONARY VALVE The pulmonary valve is not well visualized. VESSELS The inferior vena cava is normal in size. PERICARDIUM No pericardial effusion. Mojgan Ibanez MD, FACC (Electronically Signed) Final Date:20 February 2017 16:00
[2017-02-20 16:16] LABS: HEMATOCRIT 36.1 % (39.0-51.0); MEAN CELL VOLUME 88.2 FL (80.0-100.0); MEAN CORPUSCULAR HEMOGLOBIN 28.9 PG (27.0-34.0); MEAN CORPUSCULAR HGB CONC 32.8 % (32.0-36.0); PLATELET COUNT 120 TH/MM3 (150-450); REVIEW FLAG FINAL; WHITE BLOOD COUNT 17.3 TH/MM3 (4.0-11.0)
[2017-02-20 16:38] LABS: BICARBONATE 23.4 MEQ/L (21.0-32.0)
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
[2017-02-20] MEDS: CLINDAMYCIN 150 MG CAP PO SCH (18:49)
[2017-02-20] MEDS: ENOXAPARIN SODIUM 40 MG/0.4 ML SYRINGE SQ SCH (20:37)
[2017-02-20] MEDS: ACETAMINOPHEN 325 MG TAB PO PRN (20:37)
[2017-02-20] MEDS: cloNIDine HCL 0.1 MG TAB PO PRN (20:37)
[2017-02-21 00:11] VITALS: BP 119/78; PULSE 58; RESP 18; TEMP 98.1; O2SAT 96
[2017-02-21] MEDS: VANCOMYCIN INJ 1,200 MG in SODIUM CHLOR 0.9% 250 ML INJ 250 ML IV SCH ×2 (02:18→13:06)
[2017-02-21] MEDS: CLINDAMYCIN 150 MG CAP PO SCH ×4 (02:19→16:45)
[2017-02-21] MEDS: SODIUM CHLOR 0.9% 1000 ML INJ 1,000 ML IV SCH ×4 (03:51→16:45)
[2017-02-21 04:00] VITALS: BP 133/85; PULSE 62; RESP 18; TEMP 99.5; O2SAT 96
[2017-02-21] MEDS: PIPERACIL-TAZO 3.375 GM PREMIX 50 ML IV SCH ×4 (06:17→23:00)
[2017-02-21 08:00] VITALS: BP 154/102; PULSE 64; RESP 18; TEMP 98.7; O2SAT 96
[2017-02-21] MEDS: PANTOPRAZOLE SOD 40 MG DELAYED RELEASE TAB PO SCH (08:36)
[2017-02-21] MEDS: FOLIC ACID 1 MG TAB PO SCH (08:36)
[2017-02-21] MEDS: MULTIVITAMINS/MINERALS THERAPEUTIC TAB PO SCH (08:36)
[2017-02-21] MEDS: amLODIPine BESYLATE 5 MG TAB PO SCH (08:36)
[2017-02-21] MEDS: THIAMINE HCL 100 MG TAB PO SCH (08:36)
[2017-02-21] MEDS: SODIUM CHLORIDE 0.9% FLUSH 10 ML FLUSH IV FLUSH SCH ×2 (08:37→21:34)
[2017-02-21] MEDS: DOCUSATE SODIUM 50 MG/SENNA 8.6 MG TAB PO SCH ×2 (08:37→21:00)
[2017-02-21 08:44] LABS: AUTOMATED NEUTROPHIL # 9.5 TH/MM3 (1.8-7.7); BASOPHIL # 0.1 TH/MM3 (0-0.2); BASOPHIL % 0.4 % (0.0-2.0); EOSINOPHIL # 0.1 TH/MM3 (0-0.4); EOSINOPHIL % 0.9 % (0.0-4.0); HEMATOCRIT 33.4 % (39.0-51.0); HEMO FLAGS DIFF FINAL; LYMPH % 11.6 % (9.0-44.0); LYMPHOCYTE # 1.4 TH/MM3 (1.0-4.8); MEAN CELL VOLUME 86.6 FL (80.0-100.0); MEAN CORPUSCULAR HEMOGLOBIN 29.6 PG (27.0-34.0); MEAN CORPUSCULAR HGB CONC 34.2 % (32.0-36.0); MONO % 7.7 % (0.0-8.0); NEUT % 79.4 % (16.0-70.0); PLATELET COUNT 108 TH/MM3 (150-450); RED BLOOD COUNT 3.86 MIL/MM3 (4.50-5.90); RED CELL DISTRIBUTION WIDTH 14.1 % (11.6-17.2); WHITE BLOOD COUNT 11.9 TH/MM3 (4.0-11.0)
[2017-02-21 09:09] LABS: ALT (GPT) 22 U/L (12-78); ANION GAP 8 MEQ/L (5-15); AST (GOT) 14 U/L (15-37); BICARBONATE 24.4 MEQ/L (21.0-32.0); BLOOD UREA NITROGEN 15 MG/DL (7-18); CHLORIDE 103 MEQ/L (98-107); GLOMERULAR FILTRATION RATE 76 ML/MIN (>89); MAGNESIUM 1.8 MG/DL (1.5-2.5); POTASSIUM 3.1 MEQ/L (3.5-5.1); SODIUM (NA) 135 MEQ/L (136-145)
[2017-02-21 09:27] LABS: ALKALINE PHOSPHATASE 52 U/L (45-117); FREE T4 1.41 NG/DL (0.76-1.46); TOTAL BILIRUBIN ADULT 0.5 MG/DL (0.2-1.0)
[2017-02-21] MEDS ORDERED: IOHEXOL 350 MG/ML 10 ML VIAL (for RAD DIAG) IVCONTRAST ONE (09:55)
--- NOTE | 2017-02-21 10:05 | RADRPT ---
EXAM DATE/TIME: 02/21/2017 09:26 [facility] COMPARISON: No previous studies available for comparison. INDICATIONS : Right swelling and redness. IV CONTRAST: 100 cc Omnipaque 350 (iohexol) IV ; Cumulative dose for multiple exams. RADIATION DOSE: 40.41 CTDIvol (mGy) MEDICAL HISTORY : Cardiovascular disease. Hypertension. IV drug user. SURGICAL HISTORY : None. ENCOUNTER: Initial ACUITY: 1 day PAIN SCALE: 4/10 LOCATION: Left humerus TECHNIQUE: Volumetric scanning of the humerus was performed. Using automated exposure control and adjustment of the mA and/or kV according to patient size, radiation dose was kept as low as reasonably achievable to obtain optimal diagnostic quality images. DICOM format image data is available electronically for review and comparison. FINDINGS: BONES: No evidence of fracture. Alignment is within normal limits. JOINTS: No evidence of joint narrowing or effusion. SOFT TISSUES: Muscles, tendons and neurovascular structures are grossly unremarkable. There is diffuse subcutaneous edema of the right arm from the level of the proximal humerus and visualized proximal forearm. There is also diffuse skin thickening seen from just above the elbow inferiorly characteristic of cellulit is. On the medial aspect of the right arm at the elbow in the antecubital region, a irregular rim-enh ancing fluid collection is seen measuring 5.4 2.4 cm in AP and transverse dimension extending toward the skin surface and this is characteristic of an abscess. It appears multiloculated. It extends appr oximately 4.9 cm in cephalocaudal extent. CONCLUSION: 1. Cellulitis, subcutaneous edema and right antecubital region loculated fluid collection characteris tic of an abscess. Jon Pratt MD on February 21, 2017 at 10:01 Board Certified Radiologist. This report was verified electronically.
--- NOTE | 2017-02-21 10:11 | RADRPT ---
EXAM DATE/TIME: 02/21/2017 09:21 [facility] COMPARISON: CHEST SINGLE AP, February 19, 2017, 17:12. INDICATIONS : Right swelling and redness. IV CONTRAST: 100 cc Omnipaque 350 (iohexol) IV ; Cumulative dose for multiple exams. RADIATION DOSE: 5.88 CTDIvol (mGy) MEDICAL HISTORY : Cardiovascular disease. Hypertension. SURGICAL HISTORY : None. ENCOUNTER: Initial ACUITY: 1 day PAIN SCALE: 8/10 LOCATION: Right chest TECHNIQUE: Volumetric scanning of the chest was performed. Using automated exposure control and adjustment of t he mA and/or kV according to patient size, radiation dose was kept as low as reasonably achievable to obtain optimal diagnostic quality images. DICOM format image data is available electronically for review and comparison. Follow-up recommendations for detected pulmonary nodules are based at a minimum on nodule size and pa tient risk factors according to Fleischner Society Guidelines. FINDINGS: Coronary artery calcification is noted as well as small bilateral effusions and right lower lobe cons olidation. Cholelithiasis is present. There is diffuse subcutaneous edema of the left hand and a rim- enhancing irregular fluid collection in the right antecubital region is noted measuring 5.3 x 3 cm ch aracteristic of an abscess. There is aneurysmal dilatation of the ascending aorta measuring 4.4 x 2.7 cm. A few scattered atherosclerotic calcifications are present. CONCLUSION: 1. Small bilateral effusions and right lower lobe basilar airspace disease. 2. Aortic aneurysm. 3. Atherosclerosis. 4. Right arm abscess and cellulitis. Jon Pratt MD on February 21, 2017 at 10:08 Board Certified Radiologist. This report was verified electronically.
[2017-02-21 10:33] LABS: HEMOGLOBIN A1a 1.1 %; HEMOGLOBIN A1b 1.4 %; HEMOGLOBIN Ao 86.1 %; HEMOGLOBIN P3 3.7 %
[2017-02-21] MEDS: SODIUM CHLORIDE 0.9% FLUSH 10 ML FLUSH IV FLUSH PRN (11:18)
[2017-02-21] MEDS: LORazepam 1 MG TAB PO PRN (11:32)
[2017-02-21 12:00] VITALS: BP 151/96; PULSE 60; RESP 18; TEMP 98.5; O2SAT 98
--- NOTE | 2017-02-21 12:40 | HHI.PR ---
Subjective Remarks No acute events overnight. Afebrile with stable vital signs. Patient continues to complain of uncontrolled, throbbing pain in his left forearm that radiates up his arm. He states he previously took 8 mg of Dilaudid IV daily which he has been doing for years. Objective Vital Signs Date Time Temp Pulse Resp B/P (MAP) Pulse Ox O2 Delivery O2 Flow Rate FiO2 02/21/17 08:00 98.7 64 18 154/102 (119) 96 02/21/17 04:00 99.5 62 18 133/85 (101) 96 02/21/17 00:11 98.1 58 18 119/78 (92) 96 02/20/17 21:00 Room Air 02/20/17 20:00 100.2 73 18 164/104 (124) 98 02/20/17 20:00 73 02/20/17 16:00 97.6 73 20 152/99 (116) 96 I/O 02/20/17 02/20/17 02/20/17 02/21/17 02/21/17 02/21/17 07:00 15:00 23:00 07:00 15:00 23:00 Intake Total 1000 ml 300 ml 480 ml 2003 ml Output Total 500 ml 700 ml Balance 500 ml 300 ml -220 ml 2003 ml Intake Oral 480 ml IV Total 1000 ml 300 ml 2003 ml Output Urine Total 500 ml 700 ml Result Diagram: 02/21/17 0820 02/21/17 0820 Imaging Last Impressions Upper Extremity CT 02/21/17 0000 Signed Impressions: Service Date/Time: Tuesday, February 21, 2017 09:26 - CONCLUSION: 1. Cellulitis, subcutaneous edema and right antecubital region loculated fluid collection characteristic of an abscess. Jno Pratt MD Chest CT 02/21/17 0000 Signed Impressions: Service Date/Time: Tuesday, February 21, 2017 09:21 - CONCLUSION: 1. Small bilateral effusions and right lower lobe basilar airspace disease. 2. Aortic aneurysm. 3. Atherosclerosis. 4. Right arm abscess and cellulitis. Jon Pratt MD Chest X-Ray 02/19/17 1700 Signed Impressions: Service Date/Time: January 17:12 - CONCLUSION: No acute disease. There is no evidence of pneumonia. Austen Morrison MD Upper Extremity Ultrasound 02/19/17 0000 Signed Impressions: Service Date/Time: January 19:30 - CONCLUSION: 1. No DVT. 2. 5.6 cm complex mass/fluid collection likely related to an abscess. Shan Herr MD Objective Remarks GENERAL: This is a well-nourished, well-developed patient, in moderate distress , patient appears to be uncomfortable. SKIN: Left forearm positive for cellulitis, swelling, induration, tenderness to palpation. HEAD: Atraumatic. Normocephalic. No temporal or scalp tenderness. EYES: Pupils equal round and reactive. Extraocular motions intact. No scleral icterus. No injection or drainage. ENT: Nose without bleeding, purulent drainage or septal hematoma. Throat without erythema, tonsillar hypertrophy or exudate. Uvula midline. Airway patent. Tongue is midline NECK: Trachea midline. No JVD or lymphadenopathy. Supple, nontender, no meningeal signs. CARDIOVASCULAR: Regular rate and rhythm without murmurs, gallops, or rubs. S1 and S2 no S3 or S4 no heave or thrill or rub or gallop RESPIRATORY: Clear to auscultation. Breath sounds equal bilaterally. No wheezes , rales, or rhonchi. GASTROINTESTINAL: Abdomen soft, non-tender, nondistended. No hepato-splenomegaly , or palpable masses. No guarding. MUSCULOSKELETAL: Extremities without clubbing, cyanosis, has swelling and edema to left upper extremity. No joint tenderness, effusion, or edema noted. No calf tenderness. Negative Homans sign bilaterally. Left upper extremity with swelling and induration tenderness cellulitis and warmth and erythema NEUROLOGICAL: Lethargic AAO 3. Cranial nerves II through XII intact. Motor and sensory grossly within normal limits. Insight and judgment are limited mood and behavior are good A/P Assessment and Plan 47-year-old IV drug user who presented with left arm cellulitis-history of crushing up pills shooting them up Sepsis -2/2 left arm cellulitis -Cont abx -Treatment for cellulitis as below Left arm cellulitis and IV drug user -ID consulted; cont vanc/zosyn -ECHO showing vegetation on mitral valve -BCx negative x 2 days -CT left UE c/w abscess; general surgery consulted for I&D -Pain control with Percocet IV drug user with Dilaudid, Roxicodone, oxycodone -Education given to patient stating that continue use can lead to . Patient stated he understood. Renal insufficiency -Returned to baseline with IVF Hypokalemia -replaces as needed. DVT prophylaxis -Lovenox renally dosed. Discharge Planning Pending clinical improvement Joyce Chang MD R3 Feb 21, 2017 12:40
[2017-02-21] MEDS ORDERED: POTASSIUM CHLORIDE 20 MEQ CONTROLLED RELEASE TAB PO ONE (12:45)
[2017-02-21] MEDS ORDERED: PHARMACY ORDERED LAB ONE (12:45)
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
[2017-02-21] MEDS ORDERED: LIDOCAINE HCL 2% 50 ML VIAL ONE (18:42)
[2017-02-21] MEDS ORDERED: BUPIVACAINE HCL PF 0.5% 30 ML VIAL ONE (18:42)
[2017-02-21] MEDS ORDERED: DO NOT ADM ANY ANTICOAGULANT DRUGS PRN (20:20)
[2017-02-21 21:00] VITALS: BP 157/101; PULSE 69; RESP 18; TEMP 98.2; O2SAT 96
[2017-02-21 21:08] VITALS: PULSE 68
[2017-02-21] MEDS: oxyCODONE/ACETAMINOPHEN 7.5 MG/325 MG TAB PO PRN (21:40)
[2017-02-21] MEDS: ENOXAPARIN SODIUM 40 MG/0.4 ML SYRINGE SQ SCH (22:00)
[2017-02-22] VITALS: BP 172/110; PULSE 60; RESP 20; TEMP 97.5; O2SAT 100
[2017-02-22] MEDS: SODIUM CHLOR 0.9% 1000 ML INJ 1,000 ML IV SCH ×2 (00:50→21:25)
[2017-02-22] MEDS: VANCOMYCIN 1,500 MG/NS 500 ML IV SCH ×6 (00:50→16:58)
[2017-02-22] MEDS: CLINDAMYCIN 150 MG CAP PO SCH ×4 (00:51→17:44)
[2017-02-22] MEDS: cloNIDine HCL 0.1 MG TAB PO PRN (00:51)
[2017-02-22 04:00] VITALS: BP 147/97; PULSE 59; RESP 18; TEMP 98.2; O2SAT 97
[2017-02-22] MEDS: PIPERACIL-TAZO 3.375 GM PREMIX 50 ML IV SCH ×4 (05:00→23:55)
[2017-02-22] MEDS: oxyCODONE/ACETAMINOPHEN 7.5 MG/325 MG TAB PO PRN ×2 (09:20→13:27)
[2017-02-22] MEDS: IBUPROFEN 800 MG TAB PO PRN (09:20)
[2017-02-22] MEDS: PANTOPRAZOLE SOD 40 MG DELAYED RELEASE TAB PO SCH (09:20)
[2017-02-22] MEDS: MULTIVITAMINS/MINERALS THERAPEUTIC TAB PO SCH (09:20)
[2017-02-22] MEDS: DOCUSATE SODIUM 50 MG/SENNA 8.6 MG TAB PO SCH ×2 (09:20→21:00)
[2017-02-22] MEDS: amLODIPine BESYLATE 5 MG TAB PO SCH (09:21)
[2017-02-22] MEDS: THIAMINE HCL 100 MG TAB PO SCH (09:21)
[2017-02-22] MEDS: FOLIC ACID 1 MG TAB PO SCH (09:21)
[2017-02-22] MEDS: LORazepam 2 MG TAB PO PRN ×2 (09:24→13:28)
--- NOTE | 2017-02-22 11:41 | HHI.PR ---
Subjective Remarks Postop day 1 status post I&D left upper extremity secondary to loculated abscess. Patient states his pain is better controlled with Percocet. Also states he is feeling better since his procedure. He has no complaints at this time. Denies nausea/vomiting. Voiding without difficulty. Objective Vitals Vital Signs Date Time Temp Pulse Resp B/P (MAP) Pulse Ox O2 Delivery O2 Flow Rate FiO2 02/22/17 04:00 98.2 59 18 147/97 (114) 97 02/22/17 00:00 97.5 60 20 172/110 (130) 100 02/21/17 21:30 Nasal Cannula 2.00 02/21/17 21:08 68 02/21/17 21:00 98.2 69 18 157/101 (119) 96 02/21/17 20:40 71 19 158/99 (118) 98 Nasal Cannula 2 02/21/17 20:35 71 19 157/90 (112) 98 Nasal Cannula 2 02/21/17 20:26 98.5 75 18 169/87 (114) 97 Nasal Cannula 2 02/21/17 12:00 98.5 60 18 151/96 (114) 98 I/O 02/21/17 02/21/17 02/21/17 02/22/17 02/22/17 02/22/17 06:59 14:59 22:59 06:59 14:59 22:59 Intake Total 2003 ml 1480 ml 1134 ml Output Total 1100 ml 1300 ml Balance 2003 ml 380 ml -166 ml Intake Oral 480 ml 240 ml IV Total 2003 ml 1000 ml 894 ml Output Urine Total 1000 ml 1300 ml Estimated Blood Loss 100 ml # Bowel Movements 2 Result Diagram: 02/21/17 0820 02/21/17 0820 Objective Remarks GENERAL: This is a well-nourished, well-developed patient, in moderate distress , patient appears to be uncomfortable. SKIN: Left forearm positive for cellulitis, swelling, induration, tenderness to palpation. HEAD: Atraumatic. Normocephalic. No temporal or scalp tenderness. EYES: Pupils equal round and reactive. Extraocular motions intact. No scleral icterus. No injection or drainage. ENT: Nose without bleeding, purulent drainage or septal hematoma. Throat without erythema, tonsillar hypertrophy or exudate. Uvula midline. Airway patent. Tongue is midline NECK: Trachea midline. No JVD or lymphadenopathy. Supple, nontender, no meningeal signs. CARDIOVASCULAR: Regular rate and rhythm without murmurs, gallops, or rubs. S1 and S2 no S3 or S4 no heave or thrill or rub or gallop RESPIRATORY: Clear to auscultation. Breath sounds equal bilaterally. No wheezes , rales, or rhonchi. GASTROINTESTINAL: Abdomen soft, non-tender, nondistended. No hepato-splenomegaly , or palpable masses. No guarding. MUSCULOSKELETAL: Extremities without clubbing, cyanosis, has swelling and edema to left upper extremity, and her from yesterday. Dressing in place. Dressing clean/dry/intact. No joint tenderness, effusion, or edema noted. No calf tenderness. Negative Homans sign bilaterally. NEUROLOGICAL: Lethargic AAO 3. Cranial nerves II through XII intact. Motor and sensory grossly within normal limits. Insight and judgment are limited mood and behavior are good A/P Problem List: (1) Cellulitis of left arm ICD Code: L03.114 - Cellulitis of left upper limb (2) Abscess of left arm ICD Code: L02.414 - Cutaneous abscess of left upper limb (3) IV drug user ICD Code: F19.90 - Other psychoactive substance use, unspecified, uncomplicated Status: Acute (4) IV drug abuse ICD Code: F19.10 - Other psychoactive substance abuse, uncomplicated Status: Acute (5) Cellulitis ICD Code: L03.90 - Cellulitis, unspecified Status: Acute (6) Fever ICD Code: R50.9 - Fever, unspecified Status: Acute (7) Skin abscess ICD Code: L02.91 - Cutaneous abscess, unspecified Status: Acute (8) HTN (hypertension) ICD Code: I10 - Essential (primary) hypertension Status: Acute (9) Renal insufficiency ICD Code: N28.9 - Disorder of kidney and ureter, unspecified (10) Hypokalemia ICD Code: E87.6 - Hypokalemia Assessment and Plan 47-year-old IV drug user who presented with left arm cellulitis-history of crushing up pills shooting them up Sepsis -Resolved -2/2 left arm cellulitis -Cont abx -Treatment for cellulitis as below Left arm cellulitis and IV drug user -ID consulted; cont vanc/zosyn -ECHO showing vegetation on mitral valve -BCx negative x 3 days -CT left UE c/w abscess; general surgery consulted for I&D performed 02/21. Wound cultures pending. -Pain control with Percocet IV drug user with Dilaudid, Roxicodone, oxycodone -Education given to patient stating that continue use can lead to . Patient stated he understood. Renal insufficiency -Returned to baseline with IVF Hypokalemia -replaces as needed. DVT prophylaxis -Lovenox renally dosed. Discharge Planning Pending ID recommendations Problem Qualifiers (1) Cellulitis: Qualified Codes: L03.114 - Cellulitis of left upper limb (2) Fever: Qualified Codes: R50.9 - Fever, unspecified Joyce Chang MD R3 Feb 22, 2017 11:41
--- NOTE | 2017-02-22 13:08 | HHI.PR ---
Subjective Remarks pt feeling better Objective Vital Signs Date Time Temp Pulse Resp B/P (MAP) Pulse Ox O2 Delivery O2 Flow Rate FiO2 02/22/17 04:00 98.2 59 18 147/97 (114) 97 02/22/17 00:00 97.5 60 20 172/110 (130) 100 02/21/17 21:30 Nasal Cannula 2.00 02/21/17 21:08 68 02/21/17 21:00 98.2 69 18 157/101 (119) 96 02/21/17 20:40 71 19 158/99 (118) 98 Nasal Cannula 2 02/21/17 20:35 71 19 157/90 (112) 98 Nasal Cannula 2 02/21/17 20:26 98.5 75 18 169/87 (114) 97 Nasal Cannula 2 I/O 02/21/17 02/21/17 02/21/17 02/22/17 02/22/17 02/22/17 07:00 15:00 23:00 07:00 15:00 23:00 Intake Total 2003 ml 1480 ml 1134 ml Output Total 1100 ml 1300 ml Balance 2003 ml 380 ml -166 ml Intake Oral 480 ml 240 ml IV Total 2003 ml 1000 ml 894 ml Output Urine Total 1000 ml 1300 ml Estimated Blood Loss 100 ml # Bowel Movements 2 Result Diagram: 02/21/17 0820 02/21/17 0820 Objective Remarks left arm less edematous significantly; NVI throughout; drainage clean, no purulence moves all fingers easily, no swelling no induration still erythematous Assessment and Plan Problem List: (1) Cellulitis ICD Codes: L03.90 - Cellulitis, unspecified Status: Acute Plan: much improved begin dsg changes elevation of left arm will remove drain tomorrow (2) Abscess of left arm ICD Codes: L02.414 - Cutaneous abscess of left upper limb Problem Qualifiers (1) Cellulitis: Qualified Codes: L03.114 - Cellulitis of left upper limb Karri De La Rosa III, MD Feb 22, 2017 13:08
--- NOTE | 2017-02-22 14:33 | HHI.IDPN ---
Subjective Subjective Remarks ID COVERAGE is a 47-year-old male with current IV drug user with Dilaudid, oxycodone, and Roxicodone who presented with fatigue and left arm cellulitis. Patient stated that he last used IV drugs 2 days ago. He has some swelling then erythema after use. Patient stated that since it got worse he presented to the ED. He denies any other types of drug use. Stated he stopped smoking tobacco long time ago. Denies any alcohol use. Sepsis workup was initiated. Blood cultures are negative. Doppler shows a complex 5.6 cm fluid collection possible abscess. 2-D echo positive for mitral valve vegetation. D/W RN Patient went to OR yesterday Has not been compliant Pulls out his IVs Also took shower this morning and removed the LUE dressing Temps better C/S pending WBC better Antibiotics Vancomycin Zosyn Past Medical History Hypertension: Untreated. 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 Vital Signs Date Time Temp Pulse Resp B/P (MAP) Pulse Ox O2 Delivery O2 Flow Rate FiO2 02/22/17 04:00 98.2 59 18 147/97 (114) 97 02/22/17 00:00 97.5 60 20 172/110 (130) 100 02/21/17 21:30 Nasal Cannula 2.00 02/21/17 21:08 68 02/21/17 21:00 98.2 69 18 157/101 (119) 96 02/21/17 20:40 71 19 158/99 (118) 98 Nasal Cannula 2 02/21/17 20:35 71 19 157/90 (112) 98 Nasal Cannula 2 02/21/17 20:26 98.5 75 18 169/87 (114) 97 Nasal Cannula 2 . Laboratory Tests Test 02/20/17 15:40 02/21/17 08:20 White Blood Count 17.3 TH/MM3 11.9 TH/MM3 Red Blood Count 4.10 MIL/MM3 3.86 MIL/MM3 Hemoglobin 11.9 GM/DL 11.4 GM/DL Hematocrit 36.1 % 33.4 % Mean Corpuscular Volume 88.2 FL 86.6 FL Mean Corpuscular Hemoglobin 28.9 PG 29.6 PG Mean Corpuscular Hemoglobin Concent 32.8 % 34.2 % Red Cell Distribution Width 14.0 % 14.1 % Platelet Count 120 TH/MM3 108 TH/MM3 Mean Platelet Volume 8.8 FL 9.0 FL Neutrophils (%) (Auto) 79.4 % Lymphocytes (%) (Auto) 11.6 % Monocytes (%) (Auto) 7.7 % Eosinophils (%) (Auto) 0.9 % Basophils (%) (Auto) 0.4 % Neutrophils # (Auto) 9.5 TH/MM3 Lymphocytes # (Auto) 1.4 TH/MM3 Monocytes # (Auto) 0.9 TH/MM3 Eosinophils # (Auto) 0.1 TH/MM3 Basophils # (Auto) 0.1 TH/MM3 CBC Comment DIFF FINAL Differential Comment Laboratory Tests Test 02/20/17 15:40 02/21/17 08:20 Blood Urea Nitrogen 16 MG/DL 15 MG/DL Creatinine 1.12 MG/DL 1.04 MG/DL Random Glucose 175 MG/DL 93 MG/DL Calcium Level 7.9 MG/DL 8.1 MG/DL Sodium Level 136 MEQ/L 135 MEQ/L Potassium Level 3.0 MEQ/L 3.1 MEQ/L Chloride Level 102 MEQ/L 103 MEQ/L Carbon Dioxide Level 23.4 MEQ/L 24.4 MEQ/L Anion Gap 11 MEQ/L 8 MEQ/L Estimat Glomerular Filtration Rate 70 ML/MIN 76 ML/MIN C-Reactive Protein 12.00 MG/DL Total Protein 6.0 GM/DL Albumin 2.4 GM/DL Phosphorus Level 1.9 MG/DL Magnesium Level 1.8 MG/DL Alkaline Phosphatase 52 U/L Aspartate Amino Transf (AST/SGOT) 14 U/L Alanine Aminotransferase (ALT/SGPT) 22 U/L Total Bilirubin 0.5 MG/DL Hemoglobin A1c 5.2 % Free Thyroxine 1.41 NG/DL Thyroid Stimulating Hormone 3rd Gen 0.954 uIU/ML Microbiology Date/Time Source Procedure Growth Status 02/19/17 17:05 Blood Peripheral Aerobic Blood Culture - Preliminary NO GROWTH IN 3 DAYS Resulted 02/19/17 17:05 Blood Peripheral Anaerobic Blood Culture - Preliminary NO GROWTH IN 3 DAYS Resulted 02/19/17 17:05 Blood Peripheral Aerobic Blood Culture - Preliminary NO GROWTH IN 3 DAYS Resulted 8/31/17 17:05 Blood Peripheral Anaerobic Blood Culture - Preliminary NO GROWTH IN 3 DAYS Resulted 02/21/17 20:45 Abscess Arm Fungal Smear - Final NO FUNGAL ELEMENTS SEEN. Resulted 02/21/17 20:45 Abscess Arm Fungal Culture Pending Resulted 02/21/17 20:45 Abscess Arm Acid Fast Stain Pending Received 02/21/17 20:45 Abscess Arm Mycobacterial Culture Pending Received 02/21/17 20:45 Abscess Arm Gram Stain - Final Resulted 02/21/17 20:45 Abscess Arm Wound Culture - Preliminary NO GROWTH IN 24 HOURS. Resulted Physical Exam GENERAL:Awake and alert, ambulating in room. Just came out os shower - no dressing in his LUE and drain hanging out SKIN: Multiple track mcclain visible. HEAD: Atraumatic. Normocephalic. No temporal or scalp tenderness. EYES: Pupils equal round and reactive. Extraocular motions intact. No scleral icterus. No injection or drainage. ENT: Nose without bleeding, purulent drainage or septal hematoma. Throat without erythema, tonsillar hypertrophy or exudate. Uvula midline. Airway patent. NECK: Trachea midline. Supple, nontender, no meningeal signs. CARDIOVASCULAR: No murmur appreciated. RESPIRATORY: Breath sounds decreased bilaterally. GASTROINTESTINAL: Abdomen soft, non-tender, nondistended. MUSCULOSKELETAL: Left arm and forearm with erythema, induration noted present. has drain coing out of the surgical site. NEUROLOGICAL: Awake and alert. Grossly nonfocal. IV line sites with no evidence of infection. Assessment & Plan Remarks Assessment and Plan Sepsis present on admission, better Mitral valve endocarditis. Left Arm abscess S/P I and D, C/S pending Possible septic thrombophlebitis of Lt arm. IVDA Recs Continue Zosyn IV Continue Vanco IV (target 15-20) Also on Oral Clinda Follow C/S and adjust Abx Monitor progress Very difficult care, patient not compliant D/W Mony Ho MD Feb 22, 2017 14:33
[2017-02-22] MEDS: HYDROmorphone HCL 2 MG TAB PO PRN (16:13)
[2017-02-22 18:32] LABS: AUTOMATED NEUTROPHIL # 6.3 TH/MM3 (1.8-7.7); BASOPHIL # 0.1 TH/MM3 (0-0.2); BASOPHIL % 1.1 % (0.0-2.0); EOSINOPHIL # 0.3 TH/MM3 (0-0.4); HEMATOCRIT 36.4 % (39.0-51.0); LYMPH % 19.8 % (9.0-44.0); LYMPHOCYTE # 1.8 TH/MM3 (1.0-4.8); MEAN CELL VOLUME 87.6 FL (80.0-100.0); MEAN CORPUSCULAR HEMOGLOBIN 30.3 PG (27.0-34.0); MEAN CORPUSCULAR HGB CONC 34.6 % (32.0-36.0); MONO % 8.5 % (0.0-8.0); NEUT % 67.6 % (16.0-70.0); PLATELET COUNT 141 TH/MM3 (150-450); RED BLOOD COUNT 4.15 MIL/MM3 (4.50-5.90); RED CELL DISTRIBUTION WIDTH 14.2 % (11.6-17.2); WHITE BLOOD COUNT 9.3 TH/MM3 (4.0-11.0)
[2017-02-22 18:44] LABS: BICARBONATE 28.2 MEQ/L (21.0-32.0); POTASSIUM 3.2 MEQ/L (3.5-5.1)
[2017-02-22 18:47] LABS: HEMO FLAGS AUTO DIFF
[2017-02-22 19:36] LABS: SCAN/DIFF AUTO DIFF CONFIRMED
[2017-02-22 20:00] VITALS: BP 148/98; PULSE 55; RESP 20; TEMP 98.3; O2SAT 96
[2017-02-22] MEDS: ENOXAPARIN SODIUM 40 MG/0.4 ML SYRINGE SQ SCH (21:24)
[2017-02-22] MEDS: SODIUM CHLORIDE 0.9% FLUSH 10 ML FLUSH IV FLUSH PRN (21:24)
[2017-02-22] MEDS: SODIUM CHLORIDE 0.9% FLUSH 10 ML FLUSH IV FLUSH SCH (21:25)
[2017-02-23] VITALS (7 sets, daily range): BP systolic 130–176; BP diastolic 73–110; PULSE 55–76; RESP 16–20; TEMP 96.5–98.2; O2SAT 94–97
[2017-02-23] MEDS: CLINDAMYCIN 150 MG CAP PO SCH ×3 (00:35→11:36)
[2017-02-23] MEDS: VANCOMYCIN 1,500 MG/NS 500 ML IV SCH ×4 (00:38→13:12)
[2017-02-23] MEDS: SODIUM CHLOR 0.9% 1000 ML INJ 1,000 ML IV SCH ×3 (02:31→19:56)
[2017-02-23] MEDS: HYDROmorphone HCL 2 MG TAB PO PRN ×3 (05:12→22:37)
[2017-02-23] MEDS: PIPERACIL-TAZO 3.375 GM PREMIX 50 ML IV SCH ×2 (05:24→11:37)
[2017-02-23] MEDS: THIAMINE HCL 100 MG TAB PO SCH (08:55)
[2017-02-23] MEDS: FOLIC ACID 1 MG TAB PO SCH (08:55)
[2017-02-23] MEDS: PANTOPRAZOLE SOD 40 MG DELAYED RELEASE TAB PO SCH (08:55)
[2017-02-23] MEDS: MULTIVITAMINS/MINERALS THERAPEUTIC TAB PO SCH (08:55)
[2017-02-23] MEDS: amLODIPine BESYLATE 5 MG TAB PO SCH (08:55)
[2017-02-23] MEDS: LORazepam 2 MG/ML VIAL IV PUSH PRN ×2 (08:56→12:51)
[2017-02-23] MEDS: DOCUSATE SODIUM 50 MG/SENNA 8.6 MG TAB PO SCH ×2 (08:58→20:18)
[2017-02-23] MEDS: SODIUM CHLORIDE 0.9% FLUSH 10 ML FLUSH IV FLUSH SCH ×2 (08:59→20:19)
[2017-02-23 09:31] LABS: AUTOMATED NEUTROPHIL # 4.6 TH/MM3 (1.8-7.7); BASOPHIL # 0.1 TH/MM3 (0-0.2); BASOPHIL % 1.5 % (0.0-2.0); EOSINOPHIL # 0.4 TH/MM3 (0-0.4); EOSINOPHIL % 5.1 % (0.0-4.0); HEMO FLAGS DIFF FINAL; LYMPH % 20.1 % (9.0-44.0); LYMPHOCYTE # 1.4 TH/MM3 (1.0-4.8); MEAN CELL VOLUME 86.8 FL (80.0-100.0); MEAN CORPUSCULAR HGB CONC 34.5 % (32.0-36.0); MONO % 7.3 % (0.0-8.0); PLATELET COUNT 139 TH/MM3 (150-450); RED BLOOD COUNT 3.92 MIL/MM3 (4.50-5.90); RED CELL DISTRIBUTION WIDTH 14.1 % (11.6-17.2)
[2017-02-23 09:46] LABS: BICARBONATE 25.1 MEQ/L (21.0-32.0); POTASSIUM 3.4 MEQ/L (3.5-5.1)
[2017-02-23] MEDS: IBUPROFEN 800 MG TAB PO PRN (11:36)
--- NOTE | 2017-02-23 11:38 | HHI.PR ---
Subjective Remarks Follow up sepsis/LUE abscess/IVDU 02/23/17-patient seen and examined; afebrile; complains of LUE pain. patient is threatening to leave AMA Objective Vitals Vital Signs Date Time Temp Pulse Resp B/P (MAP) Pulse Ox O2 Delivery O2 Flow Rate FiO2 02/23/17 08:00 97.4 68 20 165/110 (128) 94 02/23/17 04:00 98.0 55 16 130/73 (92) 96 02/23/17 01:40 Room Air 02/23/17 00:00 98.2 56 18 144/90 (108) 95 02/22/17 20:00 98.3 55 20 148/98 (115) 96 02/22/17 15:14 Room Air 02/22/17 15:14 22 I/O 02/22/17 02/22/17 02/22/17 02/23/17 02/23/17 02/23/17 06:59 14:59 22:59 06:59 14:59 22:59 Intake Total 1134 ml 960 ml 975 ml Output Total 1300 ml 1100 ml 1300 ml Balance -166 ml -140 ml -325 ml Intake Oral 240 ml 960 ml 360 ml IV Total 894 ml 615 ml Output Urine Total 1300 ml 1100 ml 1300 ml # Bowel Movements 1 0 Result Diagram: 02/23/17 0830 02/23/17 0830 Imaging Last Impressions Upper Extremity CT 02/21/17 0000 Signed Impressions: Service Date/Time: Tuesday, February 21, 2017 09:26 - CONCLUSION: 1. Cellulitis, subcutaneous edema and right antecubital region loculated fluid collection characteristic of an abscess. Jon Pratt MD Chest CT 02/21/17 0000 Signed Impressions: Service Date/Time: Tuesday, February 21, 2017 09:21 - CONCLUSION: 1. Small bilateral effusions and right lower lobe basilar airspace disease. 2. Aortic aneurysm. 3. Atherosclerosis. 4. Right arm abscess and cellulitis. Jon Pratt MD Chest X-Ray 02/19/17 1700 Signed Impressions: Service Date/Time: January 17:12 - CONCLUSION: No acute disease. There is no evidence of pneumonia. Austen Morrison MD Upper Extremity Ultrasound 02/19/17 0000 Signed Impressions: Service Date/Time: January 19:30 - CONCLUSION: 1. No DVT. 2. 5.6 cm complex mass/fluid collection likely related to an abscess. Shan Herr MD Objective Remarks GENERAL: NAD SKIN: Warm and dry. HEAD: Normocephalic. EYES: No scleral icterus. No injection or drainage. NECK: Supple, trachea midline. No JVD or lymphadenopathy. CARDIOVASCULAR: Regular rate and rhythm without murmurs, gallops, or rubs. RESPIRATORY: Breath sounds equal bilaterally. No accessory muscle use. GASTROINTESTINAL: Abdomen soft, non-tender, nondistended. MUSCULOSKELETAL: No cyanosis, or edema. dressing on LUE BACK: Nontender without obvious deformity. No CVA tenderness. A/P Problem List: (1) Cellulitis of left arm ICD Code: L03.114 - Cellulitis of left upper limb (2) Abscess of left arm ICD Code: L02.414 - Cutaneous abscess of left upper limb (3) IV drug user ICD Code: F19.90 - Other psychoactive substance use, unspecified, uncomplicated Status: Acute (4) IV drug abuse ICD Code: F19.10 - Other psychoactive substance abuse, uncomplicated Status: Acute (5) Cellulitis ICD Code: L03.90 - Cellulitis, unspecified Status: Acute (6) Fever ICD Code: R50.9 - Fever, unspecified Status: Acute (7) Skin abscess ICD Code: L02.91 - Cutaneous abscess, unspecified Status: Acute (8) HTN (hypertension) ICD Code: I10 - Essential (primary) hypertension Status: Acute (9) Renal insufficiency ICD Code: N28.9 - Disorder of kidney and ureter, unspecified (10) Hypokalemia ICD Code: E87.6 - Hypokalemia Assessment and Plan 47-year-old IV drug user who presented with left arm cellulitis-history of crushing up pills shooting them up Sepsis 2/2 left arm cellulitis -Resolved Mitral valve endocarditis Left arm cellulitis/abscess Currently on vancomycin and Zosyn as well as by mouth clindamycin per infectious disease specialist Appreciate input from hand surgery, status post I&D IV drug user with Dilaudid, Roxicodone, oxycodone Patient counseled against Renal insufficiency Resolved with IV fluid hydration Hypokalemia Resolved DVT prophylaxis -Lovenox renally dosed. Problem Qualifiers (1) Cellulitis: Qualified Codes: L03.114 - Cellulitis of left upper limb (2) Fever: Qualified Codes: R50.9 - Fever, unspecified Bayron Anthony MD Feb 23, 2017 11:38
[2017-02-23] MEDS ORDERED: PHARMACY ORDERED LAB ONE (12:45)
--- NOTE | 2017-02-23 15:46 | HHI.PR ---
Subjective Remarks no new complaints Objective Vital Signs Date Time Temp Pulse Resp B/P (MAP) Pulse Ox O2 Delivery O2 Flow Rate FiO2 02/23/17 14:41 96 02/23/17 12:00 97.6 64 20 143/86 (105) 96 02/23/17 09:00 98 Room Air 02/23/17 08:00 97.4 68 20 165/110 (128) 94 02/23/17 04:00 98.0 55 16 130/73 (92) 96 02/23/17 01:40 Room Air 02/23/17 00:00 98.2 56 18 144/90 (108) 95 02/22/17 20:00 98.3 55 20 148/98 (115) 96 I/O 02/22/17 02/22/17 02/22/17 02/23/17 02/23/17 02/23/17 07:00 15:00 23:00 07:00 15:00 23:00 Intake Total 1134 ml 960 ml 975 ml Output Total 1300 ml 1100 ml 1300 ml Balance -166 ml -140 ml -325 ml Intake Oral 240 ml 960 ml 360 ml IV Total 894 ml 615 ml Output Urine Total 1300 ml 1100 ml 1300 ml # Bowel Movements 1 0 Result Diagram: 02/23/17 0830 02/23/17 0830 Objective Remarks left arm less edematous significantly; NVI throughout; drainage clean, no purulence moves all fingers easily, no swelling no induration much less erythema Assessment and Plan Problem List: (1) Cellulitis ICD Codes: L03.90 - Cellulitis, unspecified Status: Acute Plan: much improved elevation of left arm not very compliant drain removed (2) Abscess of left arm ICD Codes: L02.414 - Cutaneous abscess of left upper limb Problem Qualifiers (1) Cellulitis: Qualified Codes: L03.114 - Cellulitis of left upper limb Karri De La Rosa III, MD Feb 23, 2017 15:46
--- NOTE | 2017-02-23 17:44 | HHI.IDPN ---
Subjective Subjective Remarks is a 47-year-old male with current IV drug user with Dilaudid, oxycodone, and Roxicodone who presented with fatigue and left arm cellulitis. Patient stated that he last used IV drugs 2 days ago. He has some swelling then erythema after use. Patient stated that since it got worse he presented to the ED. He denies any other types of drug use. Stated he stopped smoking tobacco long time ago. Denies any alcohol use. Sepsis workup was initiated. Blood cultures are negative. Doppler shows a complex 5.6 cm fluid collection possible abscess. 2-D echo positive for mitral valve vegetation. D/W RN Patient went to OR Has not been compliant Pulls out his IVs Also took shower this morning and removed the LUE dressing Temps better C/S pending WBC better Antibiotics Vancomycin Zosyn Lines LIne site ok Past Medical History Hypertension: Untreated. 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 Vital Signs Date Time Temp Pulse Resp B/P (MAP) Pulse Ox O2 Delivery O2 Flow Rate FiO2 02/23/17 14:41 96 02/23/17 12:00 97.6 64 20 143/86 (105) 96 02/23/17 09:00 98 Room Air 02/23/17 08:00 97.4 68 20 165/110 (128) 94 02/23/17 04:00 98.0 55 16 130/73 (92) 96 02/23/17 01:40 Room Air 02/23/17 00:00 98.2 56 18 144/90 (108) 95 02/22/17 20:00 98.3 55 20 148/98 (115) 96 . Laboratory Tests Test 02/22/17 17:44 02/23/17 08:30 White Blood Count 9.3 TH/MM3 7.0 TH/MM3 Red Blood Count 4.15 MIL/MM3 3.92 MIL/MM3 Hemoglobin 12.6 GM/DL 11.8 GM/DL Hematocrit 36.4 % 34.0 % Mean Corpuscular Volume 87.6 FL 86.8 FL Mean Corpuscular Hemoglobin 30.3 PG 30.0 PG Mean Corpuscular Hemoglobin Concent 34.6 % 34.5 % Red Cell Distribution Width 14.2 % 14.1 % Platelet Count 141 TH/MM3 139 TH/MM3 Mean Platelet Volume 9.8 FL 9.7 FL Neutrophils (%) (Auto) 67.6 % 66.0 % Lymphocytes (%) (Auto) 19.8 % 20.1 % Monocytes (%) (Auto) 8.5 % 7.3 % Eosinophils (%) (Auto) 3.0 % 5.1 % Basophils (%) (Auto) 1.1 % 1.5 % Neutrophils # (Auto) 6.3 TH/MM3 4.6 TH/MM3 Lymphocytes # (Auto) 1.8 TH/MM3 1.4 TH/MM3 Monocytes # (Auto) 0.8 TH/MM3 0.5 TH/MM3 Eosinophils # (Auto) 0.3 TH/MM3 0.4 TH/MM3 Basophils # (Auto) 0.1 TH/MM3 0.1 TH/MM3 CBC Comment AUTO DIFF DIFF FINAL Differential Comment AUTO DIFF CONFIRMED Laboratory Tests Test 02/22/17 17:44 02/23/17 08:30 Blood Urea Nitrogen 12 MG/DL 9 MG/DL Creatinine 1.05 MG/DL 0.91 MG/DL Random Glucose 89 MG/DL 81 MG/DL Calcium Level 8.1 MG/DL 8.1 MG/DL Sodium Level 139 MEQ/L 139 MEQ/L Potassium Level 3.2 MEQ/L 3.4 MEQ/L Chloride Level 105 MEQ/L 105 MEQ/L Carbon Dioxide Level 28.2 MEQ/L 25.1 MEQ/L Anion Gap 6 MEQ/L 9 MEQ/L Estimat Glomerular Filtration Rate 75 ML/MIN 89 ML/MIN Microbiology Date/Time Source Procedure Growth Status 02/21/17 20:45 Abscess Arm Fungal Smear - Final NO FUNGAL ELEMENTS SEEN. Resulted 02/21/17 20:45 Abscess Arm Fungal Culture Pending Resulted 02/21/17 20:45 Abscess Arm Acid Fast Stain - Final NO ACID FAST BACILLI SEEN Resulted 02/21/17 20:45 Abscess Arm Mycobacterial Culture Pending Resulted 02/21/17 20:45 Abscess Arm Gram Stain - Final Resulted 02/21/17 20:45 Wound Culture - Preliminary Group A Beta Strep Resulted Imaging Last Impressions Upper Extremity CT 02/21/17 0000 Signed Impressions: Service Date/Time: Tuesday, February 21, 2017 09:26 - CONCLUSION: 1. Cellulitis, subcutaneous edema and right antecubital region loculated fluid collection characteristic of an abscess. Jon Pratt MD Chest CT 02/21/17 0000 Signed Impressions: Service Date/Time: Tuesday, February 21, 2017 09:21 - CONCLUSION: 1. Small bilateral effusions and right lower lobe basilar airspace disease. 2. Aortic aneurysm. 3. Atherosclerosis. 4. Right arm abscess and cellulitis. Jon Pratt MD Chest X-Ray 02/19/17 1700 Signed Impressions: Service Date/Time: , February 19, 2017 17:12 - CONCLUSION: No acute disease. There is no evidence of pneumonia. Austen Morrison MD Upper Extremity Ultrasound 02/19/17 0000 Signed Impressions: Service Date/Time: , February 19, 2017 19:30 - CONCLUSION: 1. No DVT. 2. 5.6 cm complex mass/fluid collection likely related to an abscess. Shan Herr MD Physical Exam GENERAL:Awake and alert, ambulating in room. Just came out os shower - no dressing in his LUE and drain hanging out SKIN: Multiple track mcclain visible. HEAD: Atraumatic. Normocephalic. No temporal or scalp tenderness. EYES: Pupils equal round and reactive. Extraocular motions intact. No scleral icterus. No injection or drainage. ENT: Nose without bleeding, purulent drainage or septal hematoma. Throat without erythema, tonsillar hypertrophy or exudate. Uvula midline. Airway patent. NECK: Trachea midline. Supple, nontender, no meningeal signs. CARDIOVASCULAR: No murmur appreciated. RESPIRATORY: Breath sounds decreased bilaterally. GASTROINTESTINAL: Abdomen soft, non-tender, nondistended. MUSCULOSKELETAL: Left arm and forearm with erythema, induration noted present. has drain coing out of the surgical site. NEUROLOGICAL: Awake and alert. Grossly nonfocal. IV line sites with no evidence of infection. Assessment & Plan Remarks Assessment and Plan Sepsis present on admission, better Mitral valve endocarditis. Left Arm abscess S/P I and D, C/S pending Possible septic thrombophlebitis of Lt arm. IVDA Recs DC Zosyn IV Continue Vanco IV (target 15-20) plan on 6 weeks. Will follow up next in 2 weeks. DC Oral Clinda Follow C/S and adjust Abx Monitor progress Very difficult care, patient not compliant D/W RN Micro susceptibility requested for Strep. CBC with diff, Cr, LFTs once a week, CRP. TO be ordered and followed by hospitalist. Cindy Michel MD Feb 23, 2017 17:44
[2017-02-23] MEDS: cloNIDine HCL 0.1 MG TAB PO PRN (20:18)
[2017-02-23] MEDS: LORazepam 2 MG TAB PO PRN (20:18)
[2017-02-23] MEDS: ENOXAPARIN SODIUM 40 MG/0.4 ML SYRINGE SQ SCH (20:22)
[2017-02-23] MEDS: LORazepam 1 MG TAB PO PRN (23:00)
[2017-02-24] VITALS: BP 166/109; PULSE 62; RESP 18; TEMP 97.5; O2SAT 98
[2017-02-24] MEDS ORDERED: PHARMACY ORDERED LAB ONE (00:45)
[2017-02-24] MEDS ORDERED: VANCOMYCIN INJ 2,000 MG in SODIUM CHLORID 0.9% 500 ML INJ 500 ML IV SCH (01:00)
[2017-02-24] MEDS: VANCOMYCIN 1,500 MG/NS 500 ML IV SCH ×2 (01:39)
[2017-02-24 04:01] VITALS: BP 164/110; PULSE 62; RESP 20; TEMP 97.4; O2SAT 98
[2017-02-24] MEDS: LORazepam 1 MG TAB PO PRN (04:13)
[2017-02-24] MEDS: cloNIDine HCL 0.1 MG TAB PO PRN (04:13)
[2017-02-24] MEDS: SODIUM CHLOR 0.9% 1000 ML INJ 1,000 ML IV SCH ×3 (06:55→17:24)
[2017-02-24] MEDS: SODIUM CHLORIDE 0.9% FLUSH 10 ML FLUSH IV FLUSH SCH ×2 (07:32→20:10)
--- NOTE | 2017-02-24 07:45 | MP ---
cc: KARRI COREY III, M.D. DATE OF SURGERY 02/21/2017 PROCEDURE Left forearm incision and drainage. SURGEON Karri Snyder III MD PROCEDURE The patient was brought to the operating room, placed on the operating table after the correct site and side of surgery were verified by members of each team in the room multiple times including the patient and myself and after adequate preoperative markings and preoperative written consent were verified and after adequate general anesthesia had been achieved and after adequate time-out was performed to everyone's satisfaction. The left upper extremity was prepped and draped in traditional sterile surgical fashion. Over the area of the maximum fluctuance, an incision was made just distal to the antecubital flexion crease. Blunt dissection was performed and a large amount of pus was encountered. This was sampled and passed off the field as a specimen. A counter incision at the opposite end of the abscess cavity was made a little bit more medially in the forearm at the same level to the wall anterior to the ulnar groove. Approximately 15 cc of pus was suctioned off and then a liters worth of antiseptic saline solution were used to flush out the wound. There was no further drainage. Exploration did not reveal any necrotic or other tissue that needed to be debrided. A one-quarter inch Missy drain was then placed through and through and kept coming out from both wounds. The axillary tourniquet was released. The left hand and arm became immediately soft, pink and warm and had brisk capillary refill of less than two seconds. There was no active bleeding. Hemostasis was present. The hand and arm were thoroughly cleansed and dried. A bulky soft dressing was applied around the elbow and the forearm and a circumferential dressing was applied in the usual fashion. The patient was awakened from anesthesia and transported to the Post Anesthesia Care Unit awake and in stable condition at the end of the case. The sponge, needle and instrument counts were correct at the end of the case as reported by nurses in the room. MD ALYSON Barber III/GUSTAVO /8:26 PM /7:35 AM
[2017-02-24 08:00] VITALS: BP 141/91; PULSE 57; RESP 20; TEMP 97.7; O2SAT 98
[2017-02-24] MEDS: LORazepam 2 MG TAB PO PRN ×2 (08:30→20:09)
[2017-02-24] MEDS: DOCUSATE SODIUM 50 MG/SENNA 8.6 MG TAB PO SCH ×2 (09:00→20:10)
[2017-02-24] MEDS: THIAMINE HCL 100 MG TAB PO SCH (10:02)
[2017-02-24] MEDS: MULTIVITAMINS/MINERALS THERAPEUTIC TAB PO SCH (10:03)
[2017-02-24] MEDS: FOLIC ACID 1 MG TAB PO SCH (10:03)
[2017-02-24] MEDS: amLODIPine BESYLATE 5 MG TAB PO SCH (10:03)
[2017-02-24] MEDS: PANTOPRAZOLE SOD 40 MG DELAYED RELEASE TAB PO SCH (10:03)
[2017-02-24] MEDS: HYDROmorphone HCL 2 MG TAB PO PRN ×2 (10:11→17:52)
--- NOTE | 2017-02-24 11:33 | HHI.PR ---
Subjective Remarks Follow up sepsis/LUE abscess/IVDU 02/23/17-patient seen and examined; afebrile; complains of LUE pain. patient is threatening to leave AMA 02/24/17-patient seen and examined, he was disruptive overnight, however stable this a.m. Afebrile Objective Vitals Vital Signs Date Time Temp Pulse Resp B/P (MAP) Pulse Ox O2 Delivery O2 Flow Rate FiO2 02/24/17 08:00 97.7 57 20 141/91 (108) 98 02/24/17 04:01 97.4 62 20 164/110 (128) 98 02/24/17 00:00 97.5 62 18 166/109 (128) 98 02/23/17 20:24 Room Air 02/23/17 20:00 97.3 66 16 176/105 (128) 97 02/23/17 16:00 96.5 76 20 169/103 (125) 96 02/23/17 14:41 96 02/23/17 12:00 97.6 64 20 143/86 (105) 96 I/O 02/23/17 02/23/17 02/23/17 02/24/17 02/24/17 02/24/17 06:59 14:59 22:59 06:59 14:59 22:59 Intake Total 975 ml 2920 ml 1451 ml Output Total 1300 ml 3100 ml 1850 ml Balance -325 ml -180 ml -399 ml Intake Oral 360 ml 1920 ml IV Total 615 ml 1000 ml 1451 ml Output Urine Total 1300 ml 3100 ml 1850 ml # Bowel Movements 0 1 2 Result Diagram: 02/23/17 0830 02/23/17 0830 Objective Remarks GENERAL: NAD SKIN: Warm and dry. HEAD: Normocephalic. EYES: No scleral icterus. No injection or drainage. NECK: Supple, trachea midline. No JVD or lymphadenopathy. CARDIOVASCULAR: Regular rate and rhythm without murmurs, gallops, or rubs. RESPIRATORY: Breath sounds equal bilaterally. No accessory muscle use. GASTROINTESTINAL: Abdomen soft, non-tender, nondistended. MUSCULOSKELETAL: No cyanosis, or edema. dressing on LUE BACK: Nontender without obvious deformity. No CVA tenderness. Procedures Left forearm incision and drainage 02/21/17 A/P Problem List: (1) Cellulitis of left arm ICD Code: L03.114 - Cellulitis of left upper limb (2) Abscess of left arm ICD Code: L02.414 - Cutaneous abscess of left upper limb (3) IV drug user ICD Code: F19.90 - Other psychoactive substance use, unspecified, uncomplicated Status: Acute (4) IV drug abuse ICD Code: F19.10 - Other psychoactive substance abuse, uncomplicated Status: Acute (5) Cellulitis ICD Code: L03.90 - Cellulitis, unspecified Status: Acute (6) Fever ICD Code: R50.9 - Fever, unspecified Status: Resolved (7) Skin abscess ICD Code: L02.91 - Cutaneous abscess, unspecified Status: Acute (8) HTN (hypertension) ICD Code: I10 - Essential (primary) hypertension Status: Acute (9) Renal insufficiency ICD Code: N28.9 - Disorder of kidney and ureter, unspecified (10) Hypokalemia ICD Code: E87.6 - Hypokalemia Assessment and Plan 47-year-old IV drug user who presented with left arm cellulitis-history of crushing up pills shooting them up Sepsis 2/2 left arm cellulitis -Resolved Mitral valve endocarditis Left arm cellulitis/abscess Currently on vancomycin per infectious disease specialist Appreciate input from hand surgery, status post I&D Monitor weekly labs IV drug user with Dilaudid, Roxicodone, oxycodone Patient counseled against Renal insufficiency Resolved with IV fluid hydration Hypokalemia Resolved DVT prophylaxis -Lovenox renally dosed. Problem Qualifiers (1) Cellulitis: Qualified Codes: L03.114 - Cellulitis of left upper limb (2) Fever: Qualified Codes: R50.9 - Fever, unspecified Bayron Anthony MD Feb 24, 2017 11:33
[2017-02-24 12:00] VITALS: BP 153/98; PULSE 64; RESP 20; TEMP 97.7; O2SAT 97
--- NOTE | 2017-02-24 13:30 | HHI.PR ---
Subjective Remarks no new complaints Objective Vital Signs Date Time Temp Pulse Resp B/P (MAP) Pulse Ox O2 Delivery O2 Flow Rate FiO2 02/24/17 12:54 Room Air 02/24/17 12:00 97.7 64 20 153/98 (116) 97 02/24/17 08:00 97.7 57 20 141/91 (108) 98 02/24/17 04:01 97.4 62 20 164/110 (128) 98 02/24/17 00:00 97.5 62 18 166/109 (128) 98 02/23/17 20:24 Room Air 02/23/17 20:00 97.3 66 16 176/105 (128) 97 02/23/17 16:00 96.5 76 20 169/103 (125) 96 02/23/17 14:41 96 I/O 02/23/17 02/23/17 02/23/17 02/24/17 02/24/17 02/24/17 07:00 15:00 23:00 07:00 15:00 23:00 Intake Total 975 ml 2920 ml 1451 ml Output Total 1300 ml 3100 ml 1850 ml Balance -325 ml -180 ml -399 ml Intake Oral 360 ml 1920 ml IV Total 615 ml 1000 ml 1451 ml Output Urine Total 1300 ml 3100 ml 1850 ml # Bowel Movements 0 1 2 Result Diagram: 02/23/17 0830 02/23/17 0830 Objective Remarks left arm less edematous significantly; NVI throughout; drainage clean, no purulence moves all fingers easily, no swelling no induration much less erythema and significant improvement in the edema Assessment and Plan Problem List: (1) Cellulitis ICD Codes: L03.90 - Cellulitis, unspecified Status: Acute Plan: much improved elevation of left arm not very compliant (2) Abscess of left arm ICD Codes: L02.414 - Cutaneous abscess of left upper limb Problem Qualifiers (1) Cellulitis: Qualified Codes: L03.114 - Cellulitis of left upper limb Karri De La Rosa III, MD Feb 24, 2017 13:30
[2017-02-24 16:00] VITALS: BP 146/89; PULSE 62; RESP 20; TEMP 97.9; O2SAT 96
[2017-02-24 20:00] VITALS: BP 171/106; PULSE 66; RESP 18; TEMP 97.9; O2SAT 96
[2017-02-24] MEDS: VANCOMYCIN INJ 1,250 MG in SODIUM CHLOR 0.9% 250 ML INJ 250 ML IV SCH (20:09)
[2017-02-24] MEDS: ENOXAPARIN SODIUM 40 MG/0.4 ML SYRINGE SQ SCH (22:00)
[2017-02-25] VITALS: BP 161/101; PULSE 52; RESP 16; TEMP 97.7; O2SAT 94
[2017-02-25 04:00] VITALS: BP 168/106; PULSE 60; RESP 16; TEMP 97.9; O2SAT 97
[2017-02-25 08:00] VITALS: BP 170/90; PULSE 59; RESP 18; TEMP 97.4; O2SAT 96
[2017-02-25] MEDS: SODIUM CHLORIDE 0.9% FLUSH 10 ML FLUSH IV FLUSH SCH ×2 (09:00→21:13)
[2017-02-25] MEDS: MULTIVITAMINS/MINERALS THERAPEUTIC TAB PO SCH (09:07)
[2017-02-25] MEDS: THIAMINE HCL 100 MG TAB PO SCH (09:07)
[2017-02-25] MEDS: DOCUSATE SODIUM 50 MG/SENNA 8.6 MG TAB PO SCH ×2 (09:07→21:00)
[2017-02-25] MEDS: PANTOPRAZOLE SOD 40 MG DELAYED RELEASE TAB PO SCH (09:07)
[2017-02-25] MEDS: FOLIC ACID 1 MG TAB PO SCH (09:07)
[2017-02-25] MEDS: amLODIPine BESYLATE 5 MG TAB PO SCH (09:07)
[2017-02-25] MEDS: SODIUM CHLOR 0.9% 1000 ML INJ 1,000 ML IV SCH ×3 (09:08→09:38)
[2017-02-25] MEDS: VANCOMYCIN INJ 1,250 MG in SODIUM CHLOR 0.9% 250 ML INJ 250 ML IV SCH ×2 (09:09→21:17)
[2017-02-25] MEDS: HYDROmorphone HCL 2 MG TAB PO PRN ×3 (09:14→21:12)
[2017-02-25] MEDS: LORazepam 1 MG TAB PO PRN ×3 (09:14→21:12)
[2017-02-25] MEDS ORDERED: amLODIPine BESYLATE 5 MG TAB PO ONE (11:15)
--- NOTE | 2017-02-25 11:16 | HHI.PR ---
Subjective Remarks Follow up sepsis/LUE abscess/IVDU 02/23/17-patient seen and examined; afebrile; complains of LUE pain. patient is threatening to leave AMA 02/24/17-patient seen and examined, he was disruptive overnight, however stable this a.m. Afebrile 02/25/17-patient seen and examined, not very compliant with medical care. Does not want to keep his Left arm elevated and currently afebrile. Objective Vitals Vital Signs Date Time Temp Pulse Resp B/P (MAP) Pulse Ox O2 Delivery O2 Flow Rate FiO2 02/25/17 11:10 Room Air 02/25/17 08:00 97.4 59 18 170/90 (116) 96 02/25/17 04:00 97.9 60 16 168/106 (126) 97 02/25/17 00:00 97.7 52 16 161/101 (121) 94 02/24/17 20:00 97.9 66 18 171/106 (127) 96 02/24/17 16:00 97.9 62 20 146/89 (108) 96 02/24/17 12:54 Room Air 02/24/17 12:00 97.7 64 20 153/98 (116) 97 I/O 02/24/17 02/24/17 02/24/17 02/25/17 02/25/17 02/25/17 07:00 15:00 23:00 07:00 15:00 23:00 Intake Total 1451 ml 720 ml 720 ml Output Total 1850 ml 2900 ml 2700 ml Balance -399 ml -2180 ml -1980 ml Intake Oral 720 ml 720 ml IV Total 1451 ml Output Urine Total 1850 ml 2900 ml 2700 ml # Bowel Movements 2 1 Result Diagram: 02/23/17 0830 02/25/17 0736 Objective Remarks GENERAL: NAD SKIN: Warm and dry. HEAD: Normocephalic. EYES: No scleral icterus. No injection or drainage. NECK: Supple, trachea midline. No JVD or lymphadenopathy. CARDIOVASCULAR: Regular rate and rhythm without murmurs, gallops, or rubs. RESPIRATORY: Breath sounds equal bilaterally. No accessory muscle use. GASTROINTESTINAL: Abdomen soft, non-tender, nondistended. MUSCULOSKELETAL: No cyanosis, or edema. dressing on LUE BACK: Nontender without obvious deformity. No CVA tenderness. Procedures Left forearm incision and drainage 02/21/17 A/P Problem List: (1) Cellulitis of left arm ICD Code: L03.114 - Cellulitis of left upper limb (2) Abscess of left arm ICD Code: L02.414 - Cutaneous abscess of left upper limb (3) IV drug user ICD Code: F19.90 - Other psychoactive substance use, unspecified, uncomplicated Status: Acute (4) IV drug abuse ICD Code: F19.10 - Other psychoactive substance abuse, uncomplicated Status: Acute (5) Cellulitis ICD Code: L03.90 - Cellulitis, unspecified Status: Acute (6) Fever ICD Code: R50.9 - Fever, unspecified Status: Resolved (7) Skin abscess ICD Code: L02.91 - Cutaneous abscess, unspecified Status: Acute (8) HTN (hypertension) ICD Code: I10 - Essential (primary) hypertension Status: Acute (9) Renal insufficiency ICD Code: N28.9 - Disorder of kidney and ureter, unspecified (10) Hypokalemia ICD Code: E87.6 - Hypokalemia Assessment and Plan 47-year-old IV drug user who presented with left arm cellulitis-history of crushing up pills shooting them up Sepsis 2/2 left arm cellulitis -Resolved Mitral valve endocarditis Left arm cellulitis/abscess Currently on vancomycin per infectious disease specialist Appreciate input from hand surgery, status post I&D Monitor weekly labs IV drug user with Dilaudid, Roxicodone, oxycodone Patient counseled against Benign labile hypertension Increase Norvasc to 10 mg daily, will give Norvasc 5 mg by mouth 1 now Renal insufficiency Resolved with IV fluid hydration Hypokalemia Resolved DVT prophylaxis -Lovenox renally dosed. Problem Qualifiers (1) Cellulitis: Qualified Codes: L03.114 - Cellulitis of left upper limb (2) Fever: Qualified Codes: R50.9 - Fever, unspecified Bayron Anthony MD Feb 25, 2017 11:16
[2017-02-25 12:00] VITALS: BP 178/116; PULSE 61; RESP 18; TEMP 97.6; O2SAT 95
[2017-02-25] MEDS ORDERED: PHARMACY ORDERED LAB ONE (12:45)
--- NOTE | 2017-02-25 13:18 | HHI.PR ---
Subjective Remarks no new complaints Objective Vital Signs Date Time Temp Pulse Resp B/P (MAP) Pulse Ox O2 Delivery O2 Flow Rate FiO2 02/25/17 12:00 97.6 61 18 178/116 (136) 95 02/25/17 11:10 Room Air 02/25/17 08:00 97.4 59 18 170/90 (116) 96 02/25/17 04:00 97.9 60 16 168/106 (126) 97 02/25/17 00:00 97.7 52 16 161/101 (121) 94 02/24/17 20:00 97.9 66 18 171/106 (127) 96 02/24/17 16:00 97.9 62 20 146/89 (108) 96 I/O 02/24/17 02/24/17 02/24/17 02/25/17 02/25/17 02/25/17 07:00 15:00 23:00 07:00 15:00 23:00 Intake Total 1451 ml 720 ml 720 ml Output Total 1850 ml 2900 ml 2700 ml Balance -399 ml -2180 ml -1980 ml Intake Oral 720 ml 720 ml IV Total 1451 ml Output Urine Total 1850 ml 2900 ml 2700 ml # Bowel Movements 2 1 Result Diagram: 02/23/17 0830 02/25/17 0736 Objective Remarks left arm less edematous significantly; NVI throughout; No drainage, no purulence moves all fingers easily, no swelling no induration much less erythema and significant improvement in the edema wounds clean full AROM Assessment and Plan Problem List: (1) Cellulitis ICD Codes: L03.90 - Cellulitis, unspecified Status: Acute Plan: much improved elevation of left arm not very compliant PO abx as outpt. for 7-10 more days f/u with PMD (2) Abscess of left arm ICD Codes: L02.414 - Cutaneous abscess of left upper limb Problem Qualifiers (1) Cellulitis: Qualified Codes: L03.114 - Cellulitis of left upper limb Karri De La Rosa III, MD Feb 25, 2017 13:18
[2017-02-25 15:41] VITALS: BP 162/100; PULSE 62; RESP 18; TEMP 97.9; O2SAT 96
[2017-02-25 20:01] VITALS: BP 167/91; PULSE 96; RESP 18; TEMP 98; O2SAT 96
[2017-02-25] MEDS: ENOXAPARIN SODIUM 40 MG/0.4 ML SYRINGE SQ SCH (21:13)
[2017-02-26] VITALS (7 sets, daily range): BP systolic 152–175; BP diastolic 88–112; PULSE 51–88; RESP 16–18; TEMP 97.4–97.9; O2SAT 94–99
[2017-02-26] MEDS: SODIUM CHLOR 0.9% 1000 ML INJ 1,000 ML IV SCH ×5 (00:53→23:51)
[2017-02-26] MEDS: HYDROmorphone HCL 2 MG TAB PO PRN ×5 (05:35→22:44)
[2017-02-26] MEDS ORDERED: PHARMACY ORDERED LAB ONE ×2 (08:45→20:45)
[2017-02-26] MEDS: SODIUM CHLORIDE 0.9% FLUSH 10 ML FLUSH IV FLUSH SCH ×2 (09:00→20:49)
[2017-02-26] MEDS: VANCOMYCIN INJ 1,250 MG in SODIUM CHLOR 0.9% 250 ML INJ 250 ML IV SCH ×2 (10:47→20:49)
[2017-02-26] MEDS: THIAMINE HCL 100 MG TAB PO SCH (10:48)
[2017-02-26] MEDS: DOCUSATE SODIUM 50 MG/SENNA 8.6 MG TAB PO SCH ×2 (10:48→20:50)
[2017-02-26] MEDS: PANTOPRAZOLE SOD 40 MG DELAYED RELEASE TAB PO SCH (10:48)
[2017-02-26] MEDS: cloNIDine HCL 0.1 MG TAB PO SCH ×2 (11:00→20:49)
--- NOTE | 2017-02-26 11:00 | HHI.PR ---
Subjective Remarks Follow up sepsis/LUE abscess/IVDU 02/23/17-patient seen and examined; afebrile; complains of LUE pain. patient is threatening to leave AMA 02/24/17-patient seen and examined, he was disruptive overnight, however stable this a.m. Afebrile 02/25/17-patient seen and examined, not very compliant with medical care. Does not want to keep his Left arm elevated and currently afebrile. 02/26/17-patient seen and examined; Afebrile and denies any LLE pain;BP up Objective Vitals Vital Signs Date Time Temp Pulse Resp B/P (MAP) Pulse Ox O2 Delivery O2 Flow Rate FiO2 02/26/17 08:00 97.4 53 16 175/112 (133) 97 02/26/17 04:00 97.6 54 18 152/94 (113) 98 02/26/17 00:00 97.8 88 18 165/88 (113) 96 02/25/17 20:01 98.0 96 18 167/91 (116) 96 02/25/17 20:00 Room Air 02/25/17 15:41 97.9 62 18 162/100 (120) 96 02/25/17 12:00 97.6 61 18 178/116 (136) 95 02/25/17 11:10 Room Air I/O 02/25/17 02/25/17 02/25/17 02/26/17 02/26/17 02/26/17 07:00 15:00 23:00 07:00 15:00 23:00 Intake Total 720 ml 720 ml 380 ml Output Total 2700 ml 3800 ml 1000 ml Balance -1980 ml -3080 ml -620 ml Intake Oral 720 ml 720 ml 380 ml Output Urine Total 2700 ml 3800 ml 1000 ml # Bowel Movements 1 1 Result Diagram: 02/23/17 0830 02/25/17 0736 Objective Remarks GENERAL: NAD SKIN: Warm and dry. HEAD: Normocephalic. EYES: No scleral icterus. No injection or drainage. NECK: Supple, trachea midline. No JVD or lymphadenopathy. CARDIOVASCULAR: Regular rate and rhythm without murmurs, gallops, or rubs. RESPIRATORY: Breath sounds equal bilaterally. No accessory muscle use. GASTROINTESTINAL: Abdomen soft, non-tender, nondistended. MUSCULOSKELETAL: No cyanosis, or edema. dressing on LUE BACK: Nontender without obvious deformity. No CVA tenderness. Procedures Left forearm incision and drainage 02/21/17 A/P Problem List: (1) Cellulitis of left arm ICD Code: L03.114 - Cellulitis of left upper limb (2) Abscess of left arm ICD Code: L02.414 - Cutaneous abscess of left upper limb (3) IV drug user ICD Code: F19.90 - Other psychoactive substance use, unspecified, uncomplicated Status: Acute (4) IV drug abuse ICD Code: F19.10 - Other psychoactive substance abuse, uncomplicated Status: Acute (5) Cellulitis ICD Code: L03.90 - Cellulitis, unspecified Status: Acute (6) Fever ICD Code: R50.9 - Fever, unspecified Status: Resolved (7) Skin abscess ICD Code: L02.91 - Cutaneous abscess, unspecified Status: Acute (8) HTN (hypertension) ICD Code: I10 - Essential (primary) hypertension Status: Acute (9) Renal insufficiency ICD Code: N28.9 - Disorder of kidney and ureter, unspecified (10) Hypokalemia ICD Code: E87.6 - Hypokalemia Assessment and Plan 47-year-old IV drug user who presented with left arm cellulitis-history of crushing up pills shooting them up Sepsis 2/2 left arm cellulitis -Resolved Mitral valve endocarditis Left arm cellulitis/abscess Currently on vancomycin per infectious disease specialist; strep susceptibility pending Appreciate input from hand surgery, status post I&D Monitor weekly labs IV drug user with Dilaudid, Roxicodone, oxycodone Patient counseled against Benign labile hypertension Start Clonidine 0.1mg BID as well Norvasc 10 mg daily, Renal insufficiency Resolved with IV fluid hydration Hypokalemia Resolved DVT prophylaxis -Lovenox renally dosed. Problem Qualifiers (1) Cellulitis: Qualified Codes: L03.114 - Cellulitis of left upper limb (2) Fever: Qualified Codes: R50.9 - Fever, unspecified Bayron Anthony MD Feb 26, 2017 11:00
[2017-02-26] MEDS: ENOXAPARIN SODIUM 40 MG/0.4 ML SYRINGE SQ SCH (20:50)
[2017-02-27 04:45] VITALS: BP 157/98; PULSE 52; RESP 16; TEMP 98; O2SAT 97
[2017-02-27] MEDS: HYDROmorphone HCL 2 MG TAB PO PRN ×5 (04:47→21:59)
[2017-02-27] MEDS: SODIUM CHLOR 0.9% 1000 ML INJ 1,000 ML IV SCH ×4 (04:49→16:30)
[2017-02-27 08:02] VITALS: BP 168/108; PULSE 55; RESP 18; TEMP 97.2; O2SAT 94
[2017-02-27] MEDS: PANTOPRAZOLE SOD 40 MG DELAYED RELEASE TAB PO SCH (08:47)
[2017-02-27] MEDS: THIAMINE HCL 100 MG TAB PO SCH (08:49)
[2017-02-27] MEDS: DOCUSATE SODIUM 50 MG/SENNA 8.6 MG TAB PO SCH ×2 (08:50→21:58)
[2017-02-27] MEDS: SODIUM CHLORIDE 0.9% FLUSH 10 ML FLUSH IV FLUSH SCH ×2 (08:50→21:00)
[2017-02-27] MEDS: cloNIDine HCL 0.1 MG TAB PO SCH ×2 (08:50→21:59)
--- NOTE | 2017-02-27 09:41 | HHI.PR ---
Subjective Remarks Follow up sepsis/LUE abscess/IVDU 02/23/17-patient seen and examined; afebrile; complains of LUE pain. patient is threatening to leave AMA 02/24/17-patient seen and examined, he was disruptive overnight, however stable this a.m. Afebrile 02/25/17-patient seen and examined, not very compliant with medical care. Does not want to keep his Left arm elevated and currently afebrile. 02/26/17-patient seen and examined; Afebrile and denies any LLE pain;BP up 02/27/17-patient seen and examined, complains of swollen left upper extremity otherwise no other issues. Objective Vitals Vital Signs Date Time Temp Pulse Resp B/P (MAP) Pulse Ox O2 Delivery O2 Flow Rate FiO2 02/27/17 08:02 97.2 55 18 168/108 (128) 94 02/27/17 04:45 98.0 52 16 157/98 (117) 97 02/26/17 23:40 97.6 51 16 153/96 (115) 96 02/26/17 22:49 Room Air 02/26/17 19:55 97.8 64 16 159/103 (121) 94 02/26/17 16:00 97.9 56 16 159/102 (121) 95 02/26/17 12:00 97.6 85 16 165/100 (121) 99 I/O 02/26/17 02/26/17 02/26/17 02/27/17 02/27/17 02/27/17 06:59 14:59 22:59 06:59 14:59 22:59 Intake Total 1200 ml 2463 ml Output Total 2600 ml 2550 ml Balance -1400 ml -87 ml Intake Oral 1200 ml 1200 ml IV Total 1263 ml Output Urine Total 2600 ml 2550 ml # Bowel Movements 1 0 Result Diagram: 02/23/17 0830 02/27/17 0749 Objective Remarks GENERAL: NAD SKIN: Warm and dry. HEAD: Normocephalic. EYES: No scleral icterus. No injection or drainage. NECK: Supple, trachea midline. No JVD or lymphadenopathy. CARDIOVASCULAR: Regular rate and rhythm without murmurs, gallops, or rubs. RESPIRATORY: Breath sounds equal bilaterally. No accessory muscle use. GASTROINTESTINAL: Abdomen soft, non-tender, nondistended. MUSCULOSKELETAL: No cyanosis, or edema. dressing on LUE BACK: Nontender without obvious deformity. No CVA tenderness. Procedures Left forearm incision and drainage 02/21/17 A/P Problem List: (1) Cellulitis of left arm ICD Code: L03.114 - Cellulitis of left upper limb (2) Abscess of left arm ICD Code: L02.414 - Cutaneous abscess of left upper limb (3) IV drug user ICD Code: F19.90 - Other psychoactive substance use, unspecified, uncomplicated Status: Acute (4) IV drug abuse ICD Code: F19.10 - Other psychoactive substance abuse, uncomplicated Status: Acute (5) Cellulitis ICD Code: L03.90 - Cellulitis, unspecified Status: Acute (6) Fever ICD Code: R50.9 - Fever, unspecified Status: Resolved (7) Skin abscess ICD Code: L02.91 - Cutaneous abscess, unspecified Status: Acute (8) HTN (hypertension) ICD Code: I10 - Essential (primary) hypertension Status: Acute (9) Renal insufficiency ICD Code: N28.9 - Disorder of kidney and ureter, unspecified (10) Hypokalemia ICD Code: E87.6 - Hypokalemia Assessment and Plan 47-year-old IV drug user who presented with left arm cellulitis-history of crushing up pills shooting them up Sepsis 2/2 left arm cellulitis -Resolved Mitral valve endocarditis Left arm cellulitis/abscess Currently on vancomycin 6 weeks per infectious disease specialist; strep susceptibility pending Appreciate input from hand surgery, status post I&D Monitor weekly labs IV drug user with Dilaudid, Roxicodone, oxycodone Patient counseled against Benign labile hypertension Continue Clonidine 0.1mg BID as well Norvasc 10 mg daily, Renal insufficiency Resolved with IV fluid hydration Hypokalemia Resolved DVT prophylaxis -Lovenox renally dosed. Problem Qualifiers (1) Cellulitis: Qualified Codes: L03.114 - Cellulitis of left upper limb (2) Fever: Qualified Codes: R50.9 - Fever, unspecified Bayron Anthony MD Feb 27, 2017 09:41
[2017-02-27 12:05] VITALS: BP 140/83; PULSE 54; RESP 18; TEMP 98.1; O2SAT 97
[2017-02-27 16:03] VITALS: BP 123/79; PULSE 52; RESP 18; TEMP 97.7; O2SAT 95
[2017-02-27] MEDS: IBUPROFEN 800 MG TAB PO PRN (16:24)
[2017-02-27 20:00] VITALS: BP 139/84; PULSE 53; RESP 18; TEMP 97.5; O2SAT 98
[2017-02-27] MEDS ORDERED: PHARMACY ORDERED LAB ONE (20:45)
[2017-02-27] MEDS: ENOXAPARIN SODIUM 40 MG/0.4 ML SYRINGE SQ SCH (22:01)
[2017-02-27] MEDS: VANCOMYCIN 1,000 MG/NS 250 ML IV SCH ×2 (23:59)
[2017-02-28] VITALS: BP 144/94; PULSE 53; RESP 19; TEMP 97.3; O2SAT 96
[2017-02-28 04:00] VITALS: BP 155/97; PULSE 52; RESP 18; TEMP 97.4; O2SAT 95
[2017-02-28] MEDS: HYDROmorphone HCL 2 MG TAB PO PRN ×5 (04:25→21:27)
[2017-02-28] MEDS: SODIUM CHLOR 0.9% 1000 ML INJ 1,000 ML IV SCH ×3 (04:27→22:54)
[2017-02-28 08:00] VITALS: BP 171/104; PULSE 44; RESP 20; TEMP 97.5; O2SAT 95
[2017-02-28] MEDS: DOCUSATE SODIUM 50 MG/SENNA 8.6 MG TAB PO SCH ×2 (08:42→21:27)
[2017-02-28] MEDS: PANTOPRAZOLE SOD 40 MG DELAYED RELEASE TAB PO SCH (08:43)
[2017-02-28] MEDS: cloNIDine HCL 0.1 MG TAB PO SCH ×2 (08:43→21:27)
[2017-02-28] MEDS: SODIUM CHLORIDE 0.9% FLUSH 10 ML FLUSH IV FLUSH SCH ×2 (08:43→21:00)
[2017-02-28] MEDS: VANCOMYCIN 1,000 MG/NS 250 ML IV SCH ×4 (08:43→21:27)
[2017-02-28] MEDS: THIAMINE HCL 100 MG TAB PO SCH (08:43)
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
[2017-02-28 12:00] VITALS: BP 142/101; PULSE 59; RESP 20; TEMP 97.8; O2SAT 96
[2017-02-28 16:00] VITALS: BP 142/89; PULSE 50; RESP 20; TEMP 97.1; O2SAT 97
[2017-02-28 20:00] VITALS: BP_SYST 144; BP_SYST 167; BP_DIAS 86; BP_DIAS 92; PULSE 112; PULSE 56; RESP 20; RESP 22; TEMP 97.6; O2SAT 95
[2017-02-28] MEDS: ENOXAPARIN SODIUM 40 MG/0.4 ML SYRINGE SQ SCH (21:28)
[2017-03-01] VITALS (7 sets, daily range): BP systolic 140–171; BP diastolic 82–94; PULSE 45–59; RESP 16–20; TEMP 97.2–98; O2SAT 96–99
[2017-03-01] MEDS: HYDROmorphone HCL 2 MG TAB PO PRN ×5 (01:25→20:43)
[2017-03-01] MEDS: cloNIDine HCL 0.1 MG TAB PO PRN (01:26)
[2017-03-01] MEDS: SODIUM CHLOR 0.9% 1000 ML INJ 1,000 ML IV SCH ×3 (05:44→16:24)
[2017-03-01] MEDS: SODIUM CHLORIDE 0.9% FLUSH 10 ML FLUSH IV FLUSH SCH ×2 (09:00→20:42)
[2017-03-01] MEDS: DOCUSATE SODIUM 50 MG/SENNA 8.6 MG TAB PO SCH ×2 (09:00→20:42)
[2017-03-01] MEDS: VANCOMYCIN 1,000 MG/NS 250 ML IV SCH ×4 (09:43→20:43)
[2017-03-01] MEDS: PANTOPRAZOLE SOD 40 MG DELAYED RELEASE TAB PO SCH (09:43)
[2017-03-01] MEDS: cloNIDine HCL 0.1 MG TAB PO SCH ×2 (09:43→20:42)
[2017-03-01] MEDS: THIAMINE HCL 100 MG TAB PO SCH (09:44)
[2017-03-01] MEDS ORDERED: PHARMACY ORDERED LAB ONE (09:45)
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
[2017-03-01] MEDS: ENOXAPARIN SODIUM 40 MG/0.4 ML SYRINGE SQ SCH (20:42)
[2017-03-02] VITALS: BP 145/89; PULSE 51; RESP 16; TEMP 97.9; O2SAT 99
[2017-03-02] MEDS: HYDROmorphone HCL 2 MG TAB PO PRN ×5 (00:36→20:08)
[2017-03-02] MEDS: SODIUM CHLOR 0.9% 1000 ML INJ 1,000 ML IV SCH ×5 (01:11→22:18)
[2017-03-02 04:00] VITALS: BP 145/89; PULSE 50; RESP 20; TEMP 97.6; O2SAT 99
[2017-03-02 06:49] LABS: AUTOMATED NEUTROPHIL # 6.3 TH/MM3 (1.8-7.7); BASOPHIL # 0.1 TH/MM3 (0-0.2); BASOPHIL % 0.8 % (0.0-2.0); EOSINOPHIL # 0.3 TH/MM3 (0-0.4); EOSINOPHIL % 3.3 % (0.0-4.0); HEMATOCRIT 40.8 % (39.0-51.0); LYMPH % 29.5 % (9.0-44.0); LYMPHOCYTE # 3.1 TH/MM3 (1.0-4.8); MEAN CELL VOLUME 88.1 FL (80.0-100.0); MEAN CORPUSCULAR HEMOGLOBIN 29.8 PG (27.0-34.0); MEAN CORPUSCULAR HGB CONC 33.9 % (32.0-36.0); MONO % 6.6 % (0.0-8.0); NEUT % 59.8 % (16.0-70.0); PLATELET COUNT 276 TH/MM3 (150-450); RED BLOOD COUNT 4.63 MIL/MM3 (4.50-5.90); RED CELL DISTRIBUTION WIDTH 14.1 % (11.6-17.2); WHITE BLOOD COUNT 10.6 TH/MM3 (4.0-11.0)
[2017-03-02 07:17] LABS: ALKALINE PHOSPHATASE 68 U/L (45-117); ALT (GPT) 48 U/L (12-78); ANION GAP 10 MEQ/L (5-15); AST (GOT) 46 U/L (15-37); BLOOD UREA NITROGEN 18 MG/DL (7-18); CHLORIDE 94 MEQ/L (98-107); GLOMERULAR FILTRATION RATE 72 ML/MIN (>89); TOTAL BILIRUBIN ADULT 0.3 MG/DL (0.2-1.0)
[2017-03-02 07:24] LABS: HEMO FLAGS AUTO DIFF
[2017-03-02 07:29] LABS: SODIUM (NA) 124 MEQ/L (136-145)
[2017-03-02 08:00] VITALS: BP 168/99; PULSE 45; RESP 18; TEMP 98.1; O2SAT 98
[2017-03-02] MEDS: THIAMINE HCL 100 MG TAB PO SCH (08:07)
[2017-03-02] MEDS: PANTOPRAZOLE SOD 40 MG DELAYED RELEASE TAB PO SCH (08:07)
[2017-03-02] MEDS: DOCUSATE SODIUM 50 MG/SENNA 8.6 MG TAB PO SCH ×2 (08:07→20:08)
[2017-03-02] MEDS: cloNIDine HCL 0.1 MG TAB PO SCH ×2 (08:08→20:08)
[2017-03-02] MEDS: SODIUM CHLORIDE 0.9% FLUSH 10 ML FLUSH IV FLUSH SCH ×2 (08:08→20:09)
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
[2017-03-02 11:28] LABS: BANDS 7 % (0-6); EOSINOPHILS 3 % (0-4); METAMYELOCYTES 2 % (0-1); MYELOCYTES 2 % (0-0); NEUTROPHIL # MANUAL DIFF 6.9 TH/MM3 (1.8-7.7); PLATELET ESTIMATE SMEAR NORMAL (NORMAL); PLATELET MORPHOLOGY NORMAL (NORMAL); POLYS (SEG NEUTROPHILS) 54 % (16-70); SCAN/DIFF FINAL DIFF MANUAL; WBC DIFF SAMPLE 100
[2017-03-02] MEDS: SODIUM CHLORIDE 1 GRAM TAB PO SCH (11:37)
[2017-03-02] MEDS: ceFAZolin 2 GM PREMIX 50 ML IV SCH ×2 (11:41→17:17)
[2017-03-02] MEDS: VANCOMYCIN 1,000 MG/NS 250 ML IV SCH ×4 (11:42→22:19)
[2017-03-02 12:00] VITALS: BP 141/84; PULSE 47; RESP 18; TEMP 97.7; O2SAT 94
[2017-03-02 16:00] VITALS: BP 146/95; PULSE 49; RESP 18; TEMP 97.7; O2SAT 98
[2017-03-02 20:00] VITALS: BP 152/90; PULSE 58; RESP 18; TEMP 97.8; O2SAT 97
[2017-03-02] MEDS: ENOXAPARIN SODIUM 40 MG/0.4 ML SYRINGE SQ SCH (22:19)
[2017-03-03] VITALS: BP 148/90; PULSE 53; RESP 18; TEMP 98; O2SAT 96
[2017-03-03] MEDS: cloNIDine HCL 0.1 MG TAB PO PRN ×2 (01:00→05:29)
[2017-03-03] MEDS: ceFAZolin 2 GM PREMIX 50 ML IV SCH ×3 (01:00→16:57)
[2017-03-03] MEDS: HYDROmorphone HCL 2 MG TAB PO PRN ×6 (01:00→22:43)
[2017-03-03] MEDS: SODIUM CHLOR 0.9% 1000 ML INJ 1,000 ML IV SCH ×4 (03:51→22:46)
[2017-03-03 04:00] VITALS: BP 180/100; PULSE 47; RESP 18; TEMP 98.2; O2SAT 99
[2017-03-03 08:00] VITALS: BP 164/98; PULSE 49; RESP 20; TEMP 97.7; O2SAT 99
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
[2017-03-03] MEDS: SODIUM CHLORIDE 0.9% FLUSH 10 ML FLUSH IV FLUSH SCH ×2 (09:00→20:45)
[2017-03-03] MEDS: DOCUSATE SODIUM 50 MG/SENNA 8.6 MG TAB PO SCH ×2 (09:00→20:44)
[2017-03-03] MEDS: THIAMINE HCL 100 MG TAB PO SCH (09:05)
[2017-03-03] MEDS: SODIUM CHLORIDE 1 GRAM TAB PO SCH (09:06)
[2017-03-03] MEDS: PANTOPRAZOLE SOD 40 MG DELAYED RELEASE TAB PO SCH (09:06)
[2017-03-03] MEDS: VANCOMYCIN 1,000 MG/NS 250 ML IV SCH ×4 (09:07→22:44)
[2017-03-03] MEDS: cloNIDine HCL 0.2 MG TAB PO SCH ×2 (09:56→20:44)
[2017-03-03 12:00] VITALS: BP 136/82; PULSE 49; RESP 20; TEMP 97.5; O2SAT 99
[2017-03-03 12:25] LABS: BICARBONATE 26.8 MEQ/L (21.0-32.0)
[2017-03-03 16:00] VITALS: BP 153/104; PULSE 43; RESP 20; TEMP 97.5; O2SAT 100
[2017-03-03 20:00] VITALS: BP 160/95; PULSE 42; RESP 19; TEMP 97.8; O2SAT 100
[2017-03-03] MEDS: ENOXAPARIN SODIUM 40 MG/0.4 ML SYRINGE SQ SCH (22:44)
[2017-03-04] VITALS: BP 133/80; PULSE 43; RESP 16; TEMP 97.8; O2SAT 100
[2017-03-04] MEDS: ceFAZolin 2 GM PREMIX 50 ML IV SCH ×3 (02:40→17:41)
[2017-03-04] MEDS: HYDROmorphone HCL 2 MG TAB PO PRN ×6 (02:40→23:49)
[2017-03-04 04:00] VITALS: BP 152/99; PULSE 49; RESP 19; TEMP 97.8; O2SAT 100
[2017-03-04] MEDS: SODIUM CHLOR 0.9% 1000 ML INJ 1,000 ML IV SCH ×3 (06:35→21:01)
[2017-03-04 08:00] VITALS: BP 165/107; PULSE 45; RESP 20; TEMP 97.7; O2SAT 100
[2017-03-04] MEDS: DOCUSATE SODIUM 50 MG/SENNA 8.6 MG TAB PO SCH ×2 (09:00→21:00)
[2017-03-04] MEDS: SODIUM CHLORIDE 1 GRAM TAB PO SCH (09:37)
[2017-03-04] MEDS: PANTOPRAZOLE SOD 40 MG DELAYED RELEASE TAB PO SCH (09:37)
[2017-03-04] MEDS: cloNIDine HCL 0.2 MG TAB PO SCH ×2 (09:37→21:02)
[2017-03-04] MEDS: THIAMINE HCL 100 MG TAB PO SCH (09:37)
[2017-03-04] MEDS: SODIUM CHLORIDE 0.9% FLUSH 10 ML FLUSH IV FLUSH SCH ×2 (09:38→21:02)
[2017-03-04] MEDS: VANCOMYCIN 1,000 MG/NS 250 ML IV SCH ×4 (10:00→21:01)
[2017-03-04 10:46] LABS: BICARBONATE 27.8 MEQ/L (21.0-32.0); POTASSIUM 4.1 MEQ/L (3.5-5.1)
[2017-03-04 12:00] VITALS: BP 153/97; PULSE 51; RESP 18; TEMP 97.6; O2SAT 100
[2017-03-04 16:00] VITALS: BP 159/90; PULSE 61; RESP 18; TEMP 98.7; O2SAT 98
--- NOTE | 2017-03-04 18:33 | HHI.PR ---
Subjective Remarks pt complains of pain on and off. no CP/SOB/N/V did have his arm elevated but took it down for a bit as he was uncomfortable. Objective Vitals Vital Signs Date Time Temp Pulse Resp B/P (MAP) Pulse Ox O2 Delivery O2 Flow Rate FiO2 03/04/17 16:00 98.7 61 18 159/90 (113) 98 03/04/17 12:00 97.6 51 18 153/97 (115) 100 03/04/17 08:00 97.7 45 20 165/107 (126) 100 03/04/17 08:00 Room Air 03/04/17 04:00 97.8 49 19 152/99 (116) 100 03/04/17 04:00 Room Air 03/04/17 00:00 Room Air 03/04/17 00:00 97.8 43 16 133/80 (97) 100 03/03/17 20:00 97.8 42 19 160/95 (116) 100 03/03/17 20:00 Room Air I/O 03/03/17 03/03/17 03/03/17 03/04/17 03/04/17 03/04/17 07:00 15:00 23:00 07:00 15:00 23:00 Intake Total 300 ml 1300 ml 1410 ml 2297 ml Output Total 2900 ml 1400 ml 2400 ml Balance -2600 ml 1300 ml 10 ml -103 ml Intake Oral 360 ml 1080 ml IV Total 300 ml 1300 ml 1050 ml 1217 ml Output Urine Total 2900 ml 1400 ml 2400 ml # Bowel Movements 1 0 Result Diagram: 03/02/17 0620 03/04/17 0849 Imaging Last Impressions Upper Extremity CT 02/21/17 0000 Signed Impressions: Service Date/Time: Tuesday, February 21, 2017 09:26 - CONCLUSION: 1. Cellulitis, subcutaneous edema and right antecubital region loculated fluid collection characteristic of an abscess. Jon Pratt MD Chest CT 02/21/17 0000 Signed Impressions: Service Date/Time: Tuesday, February 21, 2017 09:21 - CONCLUSION: 1. Small bilateral effusions and right lower lobe basilar airspace disease. 2. Aortic aneurysm. 3. Atherosclerosis. 4. Right arm abscess and cellulitis. Jon Pratt MD Chest X-Ray 02/19/17 1700 Signed Impressions: Service Date/Time: , February 19, 2017 17:12 - CONCLUSION: No acute disease. There is no evidence of pneumonia. Austen Morrison MD Upper Extremity Ultrasound 02/19/17 0000 Signed Impressions: Service Date/Time: , February 19, 2017 19:30 - CONCLUSION: 1. No DVT. 2. 5.6 cm complex mass/fluid collection likely related to an abscess. Shan Herr MD Objective Remarks GENERAL: NAD NECK: trachea midline. EYES:EOMI CARDIOVASCULAR: Regular rate and rhythm without murmurs RESPIRATORY: Breath sounds equal bilaterally. No accessory muscle use. GASTROINTESTINAL: Abdomen soft, non-tender, nondistended. MUSCULOSKELETAL: No cyanosis, or edema. dressing on LUE , LUE currently not elevated Procedures Left forearm incision and drainage 02/21/17 A/P Problem List: (1) Cellulitis of left arm ICD Code: L03.114 - Cellulitis of left upper limb (2) Abscess of left arm ICD Code: L02.414 - Cutaneous abscess of left upper limb (3) IV drug user ICD Code: F19.90 - Other psychoactive substance use, unspecified, uncomplicated Status: Acute (4) IV drug abuse ICD Code: F19.10 - Other psychoactive substance abuse, uncomplicated Status: Acute (5) Cellulitis ICD Code: L03.90 - Cellulitis, unspecified Status: Acute (6) Fever ICD Code: R50.9 - Fever, unspecified Status: Resolved (7) Skin abscess ICD Code: L02.91 - Cutaneous abscess, unspecified Status: Acute (8) HTN (hypertension) ICD Code: I10 - Essential (primary) hypertension Status: Acute (9) Renal insufficiency ICD Code: N28.9 - Disorder of kidney and ureter, unspecified (10) Hypokalemia ICD Code: E87.6 - Hypokalemia Assessment and Plan 47-year-old IV drug user who presented with left arm cellulitis-history of crushing up pills shooting them up Sepsis 2/2 left arm cellulitis -Resolved Mitral valve endocarditis Left arm cellulitis/abscess Currently on vancomycin 6 weeks per infectious disease specialist; strep susceptibility pending Appreciate input from hand surgery who signed off, status post I&D Monitor weekly labs including CBC, CMP, CRP every Ej Hyponatremia IV fluid hydration Continue Sodium chloride daily Serial sodium monitoring IV drug user with Dilaudid, Roxicodone, oxycodone Patient counseled against Benign hypertension Labile BP Increase Clonidine to 0.2mg BID and continue Norvasc 10 mg daily, Renal insufficiency Resolved with IV fluid hydration Hypokalemia Resolved DVT prophylaxis -Lovenox renally dosed. Discharge Planning anticipate transfer to [facility] when bed is available. Problem Qualifiers (1) Cellulitis: Qualified Codes: L03.114 - Cellulitis of left upper limb (2) Fever: Qualified Codes: R50.9 - Fever, unspecified Adrianne Sahu MD Mar 04, 2017 18:33
[2017-03-04 20:00] VITALS: BP 151/90; PULSE 63; RESP 18; TEMP 101; O2SAT 99
[2017-03-04] MEDS: ENOXAPARIN SODIUM 40 MG/0.4 ML SYRINGE SQ SCH (21:02)
[2017-03-05] VITALS: BP 127/86; PULSE 62; RESP 16; TEMP 98.3; O2SAT 99
[2017-03-05] MEDS: ceFAZolin 2 GM PREMIX 50 ML IV SCH ×3 (01:38→17:03)
[2017-03-05] MEDS: SODIUM CHLOR 0.9% 1000 ML INJ 1,000 ML IV SCH ×2 (02:01→07:02)
[2017-03-05] MEDS: HYDROmorphone HCL 2 MG TAB PO PRN ×5 (03:24→20:41)
[2017-03-05 04:00] VITALS: BP 135/84; PULSE 56; RESP 16; TEMP 98.9; O2SAT 100
[2017-03-05 08:00] VITALS: BP 161/80; PULSE 63; RESP 20; TEMP 98.7; O2SAT 99
[2017-03-05] MEDS: SODIUM CHLORIDE 0.9% FLUSH 10 ML FLUSH IV FLUSH SCH ×2 (09:00→20:41)
[2017-03-05] MEDS: DOCUSATE SODIUM 50 MG/SENNA 8.6 MG TAB PO SCH ×2 (09:00→20:39)
[2017-03-05] MEDS: PANTOPRAZOLE SOD 40 MG DELAYED RELEASE TAB PO SCH (09:15)
[2017-03-05] MEDS: THIAMINE HCL 100 MG TAB PO SCH (09:15)
[2017-03-05] MEDS: cloNIDine HCL 0.2 MG TAB PO SCH ×2 (09:15→20:40)
[2017-03-05] MEDS: SODIUM CHLORIDE 1 GRAM TAB PO SCH (09:15)
[2017-03-05] MEDS: VANCOMYCIN 1,000 MG/NS 250 ML IV SCH ×4 (09:56→20:40)
--- NOTE | 2017-03-05 11:31 | HHI.PR ---
Subjective Remarks Pain about the same, admitted to some chills last night, no nausea or vomiting. denies any burning w urination. states that since he has been here he has been having a cold but he feels much better and no longer has a cough. Objective Vitals Vital Signs Date Time Temp Pulse Resp B/P (MAP) Pulse Ox O2 Delivery O2 Flow Rate FiO2 03/05/17 08:00 Room Air 03/05/17 08:00 98.7 63 20 161/80 (107) 99 03/05/17 04:00 98.9 56 16 135/84 (101) 100 03/05/17 04:00 Room Air 03/05/17 00:00 98.3 62 16 127/86 (100) 99 03/05/17 00:00 Room Air 03/04/17 20:00 Room Air 03/04/17 20:00 101.0 63 18 151/90 (110) 99 03/04/17 16:00 98.7 61 18 159/90 (113) 98 03/04/17 12:00 97.6 51 18 153/97 (115) 100 I/O 03/04/17 03/04/17 03/04/17 03/05/17 03/05/17 03/05/17 07:00 15:00 23:00 07:00 15:00 23:00 Intake Total 2297 ml 300 ml 960 ml 1020 ml 966 ml Output Total 2400 ml 1200 ml 700 ml Balance -103 ml 300 ml -240 ml 320 ml 966 ml Intake Oral 1080 ml 960 ml 720 ml IV Total 1217 ml 300 ml 300 ml 966 ml Output Urine Total 2400 ml 1200 ml 700 ml # Voids 2 # Bowel Movements 0 1 1 Result Diagram: 03/02/17 0620 03/05/17 0651 Imaging Last Impressions Upper Extremity CT 02/21/17 0000 Signed Impressions: Service Date/Time: Tuesday, February 21, 2017 09:26 - CONCLUSION: 1. Cellulitis, subcutaneous edema and right antecubital region loculated fluid collection characteristic of an abscess. Jon Pratt MD Chest CT 02/21/17 0000 Signed Impressions: Service Date/Time: Tuesday, February 21, 2017 09:21 - CONCLUSION: 1. Small bilateral effusions and right lower lobe basilar airspace disease. 2. Aortic aneurysm. 3. Atherosclerosis. 4. Right arm abscess and cellulitis. Jon Pratt MD Chest X-Ray 02/19/17 1700 Signed Impressions: Service Date/Time: January 17:12 - CONCLUSION: No acute disease. There is no evidence of pneumonia. Austen Morrison MD Upper Extremity Ultrasound 02/19/17 0000 Signed Impressions: Service Date/Time: January 19:30 - CONCLUSION: 1. No DVT. 2. 5.6 cm complex mass/fluid collection likely related to an abscess. Shan Herr MD Objective Remarks GENERAL: NAD NECK: trachea midline. EYES:EOMI CARDIOVASCULAR: Regular rate and rhythm without murmurs RESPIRATORY: Breath sounds equal bilaterally. No accessory muscle use. GASTROINTESTINAL: Abdomen soft, non-tender, nondistended. MUSCULOSKELETAL: No cyanosis, or edema. dressing on LUE , LUE elevated Procedures Left forearm incision and drainage 02/21/17 A/P Problem List: (1) Cellulitis of left arm ICD Code: L03.114 - Cellulitis of left upper limb (2) Abscess of left arm ICD Code: L02.414 - Cutaneous abscess of left upper limb (3) IV drug user ICD Code: F19.90 - Other psychoactive substance use, unspecified, uncomplicated Status: Acute (4) IV drug abuse ICD Code: F19.10 - Other psychoactive substance abuse, uncomplicated Status: Acute (5) Cellulitis ICD Code: L03.90 - Cellulitis, unspecified Status: Acute (6) Fever ICD Code: R50.9 - Fever, unspecified Status: Resolved (7) Skin abscess ICD Code: L02.91 - Cutaneous abscess, unspecified Status: Acute (8) HTN (hypertension) ICD Code: I10 - Essential (primary) hypertension Status: Acute (9) Renal insufficiency ICD Code: N28.9 - Disorder of kidney and ureter, unspecified (10) Hypokalemia ICD Code: E87.6 - Hypokalemia Assessment and Plan 47-year-old IV drug user who presented with left arm cellulitis-history of crushing up pills shooting them up Sepsis 2/2 left arm cellulitis -Resolved Mitral valve endocarditis Left arm cellulitis/abscess Currently on vancomycin 6 weeks per infectious disease specialist; strep susceptibility available. Appreciate input from hand surgery who signed off, status post I&D Monitor weekly labs including CBC, CMP, CRP every Thursday. Pt spiked a fever of 101 last evening. will check u/a repeat blood cx, chest x-ray. I have notified ID. monitor Hyponatremia IV fluid hydration Continue Sodium chloride daily Serial sodium monitoring IV drug user with Dilaudid, Roxicodone, oxycodone Patient counseled against Benign hypertension Labile BP Increase Clonidine to 0.2mg BID and continue Norvasc 10 mg daily, Renal insufficiency Resolved with IV fluid hydration Hypokalemia Resolved DVT prophylaxis -Lovenox renally dosed. Discharge Planning keep pt here as pt spiked a fever Problem Qualifiers (1) Cellulitis: Qualified Codes: L03.114 - Cellulitis of left upper limb (2) Fever: Qualified Codes: R50.9 - Fever, unspecified Adrianne Sahu MD Mar 05, 2017 11:31
[2017-03-05 12:00] VITALS: BP 117/73; PULSE 55; RESP 20; TEMP 98; O2SAT 97
--- NOTE | 2017-03-05 14:41 | RADRPT ---
EXAM DATE/TIME: 03/05/2017 12:27 [facility] COMPARISON: CHEST SINGLE AP, February 19, 2017, 17:12. INDICATIONS : Infiltrate. Short of breath. MEDICAL HISTORY : Hypertension. MRSA. Abscess. IV drug user. SURGICAL HISTORY : Hand surgery. ENCOUNTER: Subsequent ACUITY: 3 weeks PAIN SCORE: 0/10 LOCATION: Chest FINDINGS: The heart is mildly prominent. The pulmonary vascular pattern is normal. The lungs are clear. CONCLUSION: 1. Mild cardiomegaly. 2. No acute focal pulmonary infiltrate or pulmonary vascular congestion. Giovanni Welsh MD on March 05, 2017 at 13:24 Board Certified Radiologist. This report was verified electronically.
[2017-03-05 16:00] VITALS: BP 114/77; PULSE 64; RESP 20; TEMP 97.7; O2SAT 98
[2017-03-05 17:21] LABS: BACTERIA, URINE RARE /hpf; BLOOD, URINE NEG (NEG); COMMENT (UR) CULT NOT INDICATED; CULTURE IF INDICATED CULT NOT INDICATED; GLUCOSE,URINE TRACE mg/dL (NEG); KETONE, URINE NEG (NEG); MUCUS URINE FEW /lpf (OCC); NITRITE,URINE NEG (NEG); URINE COLOR YELLOW (YELLW/STRAW)
--- NOTE | 2017-03-05 19:44 | HHI.IDPN ---
Subjective Subjective Remarks ID X cover for Skyla Michel chart reviewed is a 47-year-old male with current IV drug user with Dilaudid, oxycodone, and Roxicodone who presented with fatigue and left arm cellulitis. Patient stated that he last used IV drugs 2 days ago. He has some swelling then erythema after use. Patient stated that since it got worse he presented to the ED. He denies any other types of drug use. Stated he stopped smoking tobacco long time ago. Denies any alcohol use. Sepsis workup was initiated. Blood cultures are negative. Doppler shows a complex 5.6 cm fluid collection possible abscess. 2-D echo positive for mitral valve vegetation. D/W RN Pt had fever x 1 over night into 101 IV in R forearm infiltrated no fever today Antibiotics Vancomycin cefazoline Lines LIne site ok Past Medical History Hypertension: Untreated. 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 Vital Signs Date Time Temp Pulse Resp B/P (MAP) Pulse Ox O2 Delivery O2 Flow Rate FiO2 03/05/17 16:00 97.7 64 20 114/77 (89) 98 03/05/17 12:00 98.0 55 20 117/73 (88) 97 03/05/17 08:00 Room Air 03/05/17 08:00 98.7 63 20 161/80 (107) 99 03/05/17 04:00 98.9 56 16 135/84 (101) 100 03/05/17 04:00 Room Air 03/05/17 00:00 98.3 62 16 127/86 (100) 99 03/05/17 00:00 Room Air 03/04/17 20:00 Room Air 03/04/17 20:00 101.0 63 18 151/90 (110) 99 03/05/17 03/05/17 03/06/17 15:00 23:00 07:00 Intake Total 966 ml 600 ml Output Total 950 ml Balance 966 ml -350 ml Intake Oral 600 ml IV Total 966 ml Output Urine Total 950 ml # Bowel Movements 2 . Laboratory Tests Test 03/04/17 08:49 03/05/17 06:51 Blood Urea Nitrogen 16 MG/DL Creatinine 1.03 MG/DL 1.23 MG/DL Random Glucose 76 MG/DL Calcium Level 9.1 MG/DL Sodium Level 138 MEQ/L Potassium Level 4.1 MEQ/L Chloride Level 101 MEQ/L Carbon Dioxide Level 27.8 MEQ/L Anion Gap 9 MEQ/L Estimat Glomerular Filtration Rate 77 ML/MIN 63 ML/MIN Imaging Last Impressions Chest X-Ray 03/05/17 0000 Signed Impressions: Service Date/Time: February 12:27 - CONCLUSION: 1. Mild cardiomegaly. 2. No acute focal pulmonary infiltrate or pulmonary vascular congestion. Giovanni Welsh MD Upper Extremity CT 02/21/17 0000 Signed Impressions: Service Date/Time: Tuesday, February 21, 2017 09:26 - CONCLUSION: 1. Cellulitis, subcutaneous edema and right antecubital region loculated fluid collection characteristic of an abscess. Jon Pratt MD Chest CT 02/21/17 0000 Signed Impressions: Service Date/Time: Tuesday, February 21, 2017 09:21 - CONCLUSION: 1. Small bilateral effusions and right lower lobe basilar airspace disease. 2. Aortic aneurysm. 3. Atherosclerosis. 4. Right arm abscess and cellulitis. Jon Pratt MD Upper Extremity Ultrasound 02/19/17 0000 Signed Impressions: Service Date/Time: January 19:30 - CONCLUSION: 1. No DVT. 2. 5.6 cm complex mass/fluid collection likely related to an abscess. Shan Herr MD Physical Exam GENERAL:Awake and alert, ambulating in room. Just came out os shower - no dressing in his LUE and drain hanging out SKIN: Multiple track mcclain visible. HEAD: Atraumatic. Normocephalic. No temporal or scalp tenderness. EYES: Pupils equal round and reactive. Extraocular motions intact. No scleral icterus. No injection or drainage. ENT: Nose without bleeding, purulent drainage or septal hematoma. Throat without erythema, tonsillar hypertrophy or exudate. Uvula midline. Airway patent. NECK: Trachea midline. Supple, nontender, no meningeal signs. CARDIOVASCULAR: No murmur appreciated. RESPIRATORY: Breath sounds decreased bilaterally. GASTROINTESTINAL: Abdomen soft, non-tender, nondistended. MUSCULOSKELETAL: Left arm and forearm with erythema, induration noted present. has drain coing out of the surgical site. L antecubiotla area with approximated clean incision non tender ninduration. No erythema, no fluctuance R foream + mildly tender cord palpable NEUROLOGICAL: Awake and alert. Grossly nonfocal. IV line sites with no evidence of infection. Assessment & Plan Remarks Assessment and Plan Sepsis present on admission, better Mitral valve endocarditis. Left Arm abscess S/P I and D, GAS Possible septic thrombophlebitis of Lt arm. IVDA New fever ? phlebitis R forearm Recs cont cefaoline for GAS Continue Vanco IV (target 15-20) for now chk blood clx fu clinically chk US R FA annetta RN dw Roxy Adame MD Mar 05, 2017 19:44
[2017-03-05 20:28] VITALS: BP 175/106; PULSE 76; RESP 16; TEMP 97.8; O2SAT 95
[2017-03-05] MEDS: ENOXAPARIN SODIUM 40 MG/0.4 ML SYRINGE SQ SCH (20:40)
--- NOTE | 2017-03-05 22:16 | RADRPT ---
EXAM DATE/TIME: 03/05/2017 21:22 [facility] COMPARISON: No previous studies available for comparison. INDICATIONS : Right arm swelling. MEDICAL HISTORY : Hypertension. Joint pain. IV drug abuse. Tobacco use. MRSA. SURGICAL HISTORY : None. ENCOUNTER: Initial ACUITY: 2 day PAIN SCORE: 8/10 LOCATION: Right arm. FINDINGS: There is occlusive thrombus in the right cephalic vein at the level of the forearm. Other venous trib utaries of the right upper trauma near patent, including the internal jugular vein. CONCLUSION: Superficial thrombus of the right upper extremity involving the cephalic vein. Otherwise negative. Shan Coleman MD on March 05, 2017 at 22:14 Board Certified Radiologist. This report was verified electronically.
[2017-03-06 00:05] VITALS: BP 162/100; PULSE 90; RESP 18; TEMP 98.2; O2SAT 99
[2017-03-06] MEDS: ceFAZolin 2 GM PREMIX 50 ML IV SCH ×3 (01:00→17:26)
[2017-03-06] MEDS: HYDROmorphone HCL 2 MG TAB PO PRN ×6 (01:00→23:25)
[2017-03-06 04:38] VITALS: BP 176/115; PULSE 88; RESP 16; TEMP 99.1; O2SAT 100
[2017-03-06] MEDS: cloNIDine HCL 0.1 MG TAB PO PRN ×2 (04:56→23:25)
[2017-03-06 08:00] VITALS: BP_SYST 162; BP_SYST 189; BP_DIAS 102; BP_DIAS 104; PULSE 98; RESP 18; TEMP 98; O2SAT 96
[2017-03-06] MEDS ORDERED: PHARMACY ORDERED LAB ONE (09:45)
[2017-03-06] MEDS: PANTOPRAZOLE SOD 40 MG DELAYED RELEASE TAB PO SCH (10:08)
[2017-03-06] MEDS: THIAMINE HCL 100 MG TAB PO SCH (10:08)
[2017-03-06] MEDS: SODIUM CHLORIDE 1 GRAM TAB PO SCH (10:08)
[2017-03-06] MEDS: cloNIDine HCL 0.2 MG TAB PO SCH ×2 (10:08→21:00)
[2017-03-06] MEDS: SODIUM CHLORIDE 0.9% FLUSH 10 ML FLUSH IV FLUSH SCH ×2 (10:09→23:26)
[2017-03-06] MEDS: VANCOMYCIN 1,000 MG/NS 250 ML IV SCH ×2 (10:10)
[2017-03-06] MEDS: DOCUSATE SODIUM 50 MG/SENNA 8.6 MG TAB PO SCH ×2 (10:10→21:00)
[2017-03-06 12:00] VITALS: BP 162/100; PULSE 80; RESP 20; TEMP 99; O2SAT 99
[2017-03-06] MEDS: SODIUM CHLOR 0.9% 1000 ML INJ 1,000 ML IV SCH (13:11)
--- NOTE | 2017-03-06 15:54 | HHI.PR ---
Subjective Remarks Follow up on patient with IVDU, cellulitis LUE. Patient seen and examined. Patient complaining of pain and swelling in RUE since the new IV was placed. States he can feel the fluid rushing into him. He denies any other medical complaints. Discussed with nursing staff - requested additional pillows to help patient keep RUE elevated. Objective Vitals Vital Signs Date Time Temp Pulse Resp B/P (MAP) Pulse Ox O2 Delivery O2 Flow Rate FiO2 03/06/17 12:55 Room Air 03/06/17 12:00 99.0 80 20 162/100 (120) 99 03/06/17 08:00 162/102 (122) 03/06/17 08:00 98.0 98 18 189/104 (132) 96 03/06/17 04:38 99.1 88 16 176/115 (135) 100 03/06/17 00:05 98.2 90 18 162/100 (120) 99 03/05/17 20:28 97.8 76 16 175/106 (129) 95 Automatic Cuff 03/05/17 20:00 Room Air 03/05/17 16:00 97.7 64 20 114/77 (89) 98 I/O 03/05/17 03/05/17 03/05/17 03/06/17 03/06/17 03/06/17 07:00 15:00 23:00 07:00 15:00 23:00 Intake Total 1020 ml 966 ml 850 ml 1010 ml 840 ml Output Total 700 ml 950 ml 400 ml Balance 320 ml 966 ml -100 ml 610 ml 840 ml Intake Oral 720 ml 600 ml 960 ml 840 ml IV Total 300 ml 966 ml 250 ml 50 ml Output Urine Total 700 ml 950 ml 400 ml # Voids 2 3 # Bowel Movements 1 2 2 1 Result Diagram: 03/02/17 0620 03/05/17 0651 Imaging Last Impressions Upper Extremity Ultrasound 03/05/17 0000 Signed Impressions: Service Date/Time: February 21:22 - CONCLUSION: Superficial thrombus of the right upper extremity involving the cephalic vein. Otherwise negative. Shan Coleman MD Chest X-Ray 03/05/17 0000 Signed Impressions: Service Date/Time: February 12:27 - CONCLUSION: 1. Mild cardiomegaly. 2. No acute focal pulmonary infiltrate or pulmonary vascular congestion. Giovanni Welsh MD Upper Extremity CT 02/21/17 0000 Signed Impressions: Service Date/Time: Tuesday, February 21, 2017 09:26 - CONCLUSION: 1. Cellulitis, subcutaneous edema and right antecubital region loculated fluid collection characteristic of an abscess. Jon Pratt MD Chest CT 02/21/17 0000 Signed Impressions: Service Date/Time: Tuesday, February 21, 2017 09:21 - CONCLUSION: 1. Small bilateral effusions and right lower lobe basilar airspace disease. 2. Aortic aneurysm. 3. Atherosclerosis. 4. Right arm abscess and cellulitis. Jon Pratt MD Objective Remarks GENERAL: Well-nourished, well-developed patient in NAD. Sitting up in hospital bed. Awake and alert. Appears comfortable. SKIN: Warm and dry. No rash. HEAD: Normocephalic. Atraumatic. EYES: EOMI. No scleral icterus. No injection or drainage. ENT: No nasal bleeding or discharge. Mucous membranes pink and moist. NECK: Supple. Trachea midline. CARDIOVASCULAR: Regular rate and rhythm. S1, S2 noted. No murmur appreciated. RESPIRATORY: No accessory muscle use. Clear to auscultation. Breath sounds equal bilaterally. GASTROINTESTINAL: Abdomen soft, non-tender, nondistended. Normoactive bowel sounds x4. MUSCULOSKELETAL: Well healed surgical incision LUE. Right forearm with some edema and mild erythema proximal to IV insertion. (+)tenderness to palpation. NEUROLOGICAL: Awake and alert. Able to move all extremities. Normal speech. Procedures Left forearm incision and drainage 02/21/17 Medications and IVs Current Medications Medications (Trade) Dose Ordered Sig/Brennon Route Start Time Stop Time Status Last Admin (Zofran Inj) 4 mg Q6H PRN IVP 02/19/17 18:45 (Narcan Inj) 0.4 mg UNSCH PRN IV 02/19/17 18:45 (Pearl-Colace) 1 tab BID PO 02/19/17 21:00 03/03/17 20:44 (Milk Of Magnesia Liq) 30 ml Q12H PRN PO 02/19/17 18:45 (Senokot) 17.2 mg Q12H PRN PO 02/19/17 18:45 (Dulcolax Supp) 10 mg DAILY PRN RECTAL 02/19/17 18:45 (Lactulose Liq) 30 ml DAILY PRN PO 02/19/17 18:45 Pharmacy Profile Note 0 ml @ 0 mls/hr UNSCH OTHER 02/19/17 18:45 (Catapres) 0.1 mg Q4HR PRN PO 02/20/17 09:00 03/06/17 04:56 (Motrin) 800 mg Q8H PRN PO 02/20/17 09:00 02/27/17 16:24 (Tylenol) 650 mg Q4H PRN PO 02/20/17 09:00 02/20/17 20:37 (NS Flush) 2 ml UNSCH PRN IV FLUSH 02/20/17 12:30 02/22/17 21:24 (NS Flush) 2 ml BID IV FLUSH 02/20/17 21:00 03/06/17 10:09 (Vitamin B1) 100 mg DAILY PO 02/20/17 12:30 03/06/17 10:08 (Protonix) 40 mg DAILY PO 02/20/17 12:30 03/06/17 10:08 (Romazicon Inj) 0.2 mg Q1M PRN IV PUSH 02/20/17 12:30 (Ativan) 1 mg Q4H PRN PO 02/20/17 12:30 02/25/17 21:12 (Ativan Inj) 1 mg Q4H PRN IV PUSH 02/20/17 12:30 02/23/17 12:51 (Ativan) 2 mg Q2H PRN PO 02/20/17 12:30 02/24/17 20:09 (Ativan Inj) 2 mg Q2H PRN IV PUSH 02/20/17 12:30 02/20/17 20:35 (Ativan Inj) 2 mg Q1H PRN IV PUSH 02/20/17 12:30 02/21/17 21:33 (Ativan Inj) 2 mg Q15M PRN IV PUSH 02/20/17 12:30 (Haldol Inj) 2 mg Q15M PRN IM 02/20/17 12:30 (Lovenox Inj) 40 mg Q24H SQ 02/20/17 22:00 03/05/17 20:40 (Dilaudid) 2 mg Q4H PRN PO 02/22/17 15:15 03/06/17 14:23 (Norvasc) 10 mg DAILY PO 02/26/17 09:00 03/06/17 10:08 (Sodium Chloride) 1 gm DAILY PO 03/02/17 09:00 Future Hold 03/06/17 10:08 Cefazolin Sodium/ Dextrose 50 ml @ 150 mls/hr Q8H IV 03/02/17 10:00 03/06/17 10:09 (Catapres) 0.2 mg Q12HR PO 03/03/17 09:00 03/06/17 10:08 Vancomycin HCl 1250 mg/Sodium Chloride 262.5 ml @ 250 mls/hr Q12H IV 03/06/17 22:00 Miscellaneous Information SPECIFIC LAB TO BE MELINA... ONCE ONCE .XX 03/08/17 09:45 03/08/17 09:46 (Apresoline) 10 mg Q6HR PO 03/06/17 18:00 (Motrin) 800 mg Q8HR PO 03/06/17 22:00 UNV A/P Problem List: (1) Cellulitis of left arm ICD Code: L03.114 - Cellulitis of left upper limb (2) Abscess of left arm ICD Code: L02.414 - Cutaneous abscess of left upper limb (3) IV drug user ICD Code: F19.90 - Other psychoactive substance use, unspecified, uncomplicated Status: Acute (4) IV drug abuse ICD Code: F19.10 - Other psychoactive substance abuse, uncomplicated Status: Acute (5) Cellulitis ICD Code: L03.90 - Cellulitis, unspecified Status: Acute (6) Fever ICD Code: R50.9 - Fever, unspecified Status: Resolved (7) Skin abscess ICD Code: L02.91 - Cutaneous abscess, unspecified Status: Acute (8) HTN (hypertension) ICD Code: I10 - Essential (primary) hypertension Status: Acute (9) Renal insufficiency ICD Code: N28.9 - Disorder of kidney and ureter, unspecified (10) Hypokalemia ICD Code: E87.6 - Hypokalemia Assessment and Plan 47-year-old IV drug user who presented with left arm cellulitis-history of crushing up pills shooting them up Sepsis 2/2 left arm cellulitis -Resolved -s/p ID LUE Mitral valve endocarditis Left arm cellulitis/abscess ID following, appreciate their assistance Currently on vancomycin 6 weeks per infectious disease specialist; strep susceptibility available. Appreciate input from hand surgery who signed off, status post I&D Monitor weekly labs including CBC, CMP, CRP every Thursday. Pt spiked a fever of 101 9/. Temp 99.0 now. UA unremarkable. Blood cx pending. CXR personally reviewed showing mild cardiomegaly and no evidence of acute disease. ? phlebitis right forearm. US ordered by ID showed superficial thrombus of the RUE involving the cephalic vein. Elevate RUE, cold compresses, Motrin. Monitor. Hyponatremia resolved discontinue IV fluid hydration hold po sodium chloride monitor sodium closely IV drug user with Dilaudid, Roxicodone, oxycodone Patient counseled against use Hep C 02/20/17 Hep C reactive patient will need to follow up with GI as outpatient to discuss possible treatment if he is able to abstain from IVDU Benign hypertension Labile BP Continue Clonidine to 0.2mg BID and continue Norvasc 10 mg daily Add Hydralazine 10mg q6h Monitor BP DVT prophylaxis -Lovenox Discussed with patient, nursing staff and Dr. Sahu Discharge Planning Clinical course and ID clearance Attending Statement The exam, history, and the medical decision-making described in the above note were completed with the assistance of the mid-level provider. I reviewed and agree with the findings presented. I attest that I had a [id number] encounter with the patient on the same day, and personally performed and documented my assessment and findings in the medical record. Pt complaining of pain in the right upper extremity where IV site infiltrated. feels IVF going. Otherwise not other complaints. pain on the left arm controlled. swelling and mild erythema noted on the right upper extremity below the antecubital fossa. HR rrr, lungs are clear IVDU/endocarditis/now right Upper ext swelling. continue abx per ID. for the Right UE swelling, most likely case of thrombophlebitis. U/S shows superficial vein thrombosis. give motrin and elevate and cold compresses. Pt has been spiking fevers, follow up cultures. appreciate ID input Problem Qualifiers (1) Cellulitis: Qualified Codes: L03.114 - Cellulitis of left upper limb (2) Fever: Qualified Codes: R50.9 - Fever, unspecified [place],Zenia PA Mar 06, 2017 15:54 Adrianne Sahu MD Mar 06, 2017 18:05
[2017-03-06] MEDS ORDERED: IBUPROFEN 600 MG TAB PO SCH (16:00)
[2017-03-06 16:01] VITALS: BP 147/96; PULSE 74; RESP 16; TEMP 97.8; O2SAT 100
[2017-03-06] MEDS: hydrALAZINE HCL 10 MG TAB PO SCH ×2 (17:26→23:25)
[2017-03-06 19:45] VITALS: BP 150/95; PULSE 75; RESP 17; TEMP 98.2; O2SAT 99
[2017-03-06] MEDS: IBUPROFEN 800 MG TAB PO SCH (23:25)
[2017-03-06] MEDS: ENOXAPARIN SODIUM 40 MG/0.4 ML SYRINGE SQ SCH (23:35)
[2017-03-06] MEDS: VANCOMYCIN INJ 1,250 MG in SODIUM CHLOR 0.9% 250 ML INJ 250 ML IV SCH (23:38)
[2017-03-07 00:45] VITALS: BP 195/90; PULSE 86; RESP 17; TEMP 97.7; O2SAT 99
[2017-03-07] MEDS: HYDROmorphone HCL 2 MG TAB PO PRN ×4 (03:06→17:29)
[2017-03-07] MEDS: ceFAZolin 2 GM PREMIX 50 ML IV SCH ×3 (03:07→17:29)
[2017-03-07 04:30] VITALS: BP 150/92; PULSE 73; RESP 17; TEMP 97.6; O2SAT 100
[2017-03-07] MEDS: hydrALAZINE HCL 10 MG TAB PO SCH ×3 (05:49→17:29)
[2017-03-07] MEDS: cloNIDine HCL 0.1 MG TAB PO PRN (05:49)
[2017-03-07] MEDS: IBUPROFEN 800 MG TAB PO SCH ×3 (05:50→21:46)
[2017-03-07 08:00] VITALS: BP 172/93; PULSE 63; RESP 20; TEMP 97.4; O2SAT 100
[2017-03-07] MEDS: THIAMINE HCL 100 MG TAB PO SCH (08:08)
[2017-03-07] MEDS: SODIUM CHLORIDE 0.9% FLUSH 10 ML FLUSH IV FLUSH SCH ×2 (08:08→21:00)
[2017-03-07] MEDS: cloNIDine HCL 0.2 MG TAB PO SCH ×2 (08:08→21:46)
[2017-03-07] MEDS: DOCUSATE SODIUM 50 MG/SENNA 8.6 MG TAB PO SCH ×2 (08:08→21:00)
[2017-03-07] MEDS: PANTOPRAZOLE SOD 40 MG DELAYED RELEASE TAB PO SCH (08:08)
[2017-03-07 10:35] LABS: AUTOMATED NEUTROPHIL # 9.1 TH/MM3 (1.8-7.7); BASOPHIL # 0.1 TH/MM3 (0-0.2); BASOPHIL % 0.8 % (0.0-2.0); EOSINOPHIL # 0.3 TH/MM3 (0-0.4); EOSINOPHIL % 2.1 % (0.0-4.0); HEMATOCRIT 38.2 % (39.0-51.0); HEMO FLAGS DIFF FINAL; LYMPH % 12.2 % (9.0-44.0); LYMPHOCYTE # 1.5 TH/MM3 (1.0-4.8); MEAN CELL VOLUME 87.6 FL (80.0-100.0); MEAN CORPUSCULAR HEMOGLOBIN 28.6 PG (27.0-34.0); MEAN CORPUSCULAR HGB CONC 32.6 % (32.0-36.0); MONO % 9.3 % (0.0-8.0); NEUT % 75.6 % (16.0-70.0); PLATELET COUNT 215 TH/MM3 (150-450); RED BLOOD COUNT 4.36 MIL/MM3 (4.50-5.90); RED CELL DISTRIBUTION WIDTH 14.6 % (11.6-17.2); WHITE BLOOD COUNT 12.1 TH/MM3 (4.0-11.0)
[2017-03-07] MEDS: VANCOMYCIN INJ 1,250 MG in SODIUM CHLOR 0.9% 250 ML INJ 250 ML IV SCH ×2 (11:01→21:46)
[2017-03-07 11:07] LABS: BICARBONATE 25.1 MEQ/L (21.0-32.0)
[2017-03-07 11:09] LABS: POTASSIUM 4.3 MEQ/L (3.5-5.1)
[2017-03-07 12:00] VITALS: BP 129/84; PULSE 66; RESP 20; TEMP 98; O2SAT 100
--- NOTE | 2017-03-07 14:28 | HHI.PR ---
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 Doesn't complain of pain to me. No nausea or vomiting. Discussed w RN, pt taking dressings off then putting them back on. He has already been counseled to stop doing this, pt states that "no one" comes and does them for him. Objective Vitals Vital Signs Date Time Temp Pulse Resp B/P (MAP) Pulse Ox O2 Delivery O2 Flow Rate FiO2 03/07/17 12:00 98.0 66 20 129/84 (99) 100 03/07/17 08:00 97.4 63 20 172/93 (119) 100 Manual Cuff/Auscultation 03/07/17 04:30 97.6 73 17 150/92 (111) 100 03/07/17 04:00 Room Air 03/07/17 00:45 97.7 86 17 195/90 (125) 99 03/07/17 00:00 Room Air 03/06/17 20:00 Room Air 03/06/17 19:45 98.2 75 17 150/95 (113) 99 03/06/17 16:01 97.8 74 16 147/96 (113) 100 I/O 03/06/17 03/06/17 03/06/17 03/07/17 03/07/17 03/07/17 07:00 15:00 23:00 07:00 15:00 23:00 Intake Total 1010 ml 50 ml 1620 ml 970 ml Output Total 400 ml Balance 610 ml 50 ml 1620 ml 970 ml Intake Oral 960 ml 1320 ml 720 ml IV Total 50 ml 50 ml 300 ml 250 ml Output Urine Total 400 ml # Voids 5 5 # Bowel Movements 2 1 0 Result Diagram: 03/07/17 0930 03/07/17 0930 Imaging Last Impressions Upper Extremity Ultrasound 03/05/17 0000 Signed Impressions: Service Date/Time: February 21:22 - CONCLUSION: Superficial thrombus of the right upper extremity involving the cephalic vein. Otherwise negative. Shan Coleman MD Chest X-Ray 03/05/17 0000 Signed Impressions: Service Date/Time: February 12:27 - CONCLUSION: 1. Mild cardiomegaly. 2. No acute focal pulmonary infiltrate or pulmonary vascular congestion. Giovanni Welsh MD Upper Extremity CT 02/21/17 0000 Signed Impressions: Service Date/Time: Tuesday, February 21, 2017 09:26 - CONCLUSION: 1. Cellulitis, subcutaneous edema and right antecubital region loculated fluid collection characteristic of an abscess. Jon Pratt MD Chest CT 02/21/17 0000 Signed Impressions: Service Date/Time: Tuesday, February 21, 2017 09:21 - CONCLUSION: 1. Small bilateral effusions and right lower lobe basilar airspace disease. 2. Aortic aneurysm. 3. Atherosclerosis. 4. Right arm abscess and cellulitis. Jon Pratt MD Objective Remarks GENERAL: NAD NECK: trachea midline. EYES:EOMI CARDIOVASCULAR: Regular rate and rhythm without murmurs RESPIRATORY: Breath sounds equal bilaterally. No accessory muscle use. GASTROINTESTINAL: Abdomen soft, non-tender, nondistended. MUSCULOSKELETAL: No cyanosis, or edema. dressing on LUE , LUE seems improved and less swollen. Procedures Left forearm incision and drainage 02/21/17 A/P Problem List: (1) Cellulitis of left arm ICD Code: L03.114 - Cellulitis of left upper limb (2) Abscess of left arm ICD Code: L02.414 - Cutaneous abscess of left upper limb (3) IV drug user ICD Code: F19.90 - Other psychoactive substance use, unspecified, uncomplicated Status: Acute (4) IV drug abuse ICD Code: F19.10 - Other psychoactive substance abuse, uncomplicated Status: Acute (5) Cellulitis ICD Code: L03.90 - Cellulitis, unspecified Status: Acute (6) Fever ICD Code: R50.9 - Fever, unspecified Status: Resolved (7) Skin abscess ICD Code: L02.91 - Cutaneous abscess, unspecified Status: Acute (8) HTN (hypertension) ICD Code: I10 - Essential (primary) hypertension Status: Acute (9) Renal insufficiency ICD Code: N28.9 - Disorder of kidney and ureter, unspecified (10) Hypokalemia ICD Code: E87.6 - Hypokalemia Assessment and Plan 47-year-old IV drug user who presented with left arm cellulitis-history of crushing up pills shooting them up Sepsis 2/2 left arm cellulitis -Resolved Mitral valve endocarditis Left arm cellulitis/abscess Currently on vancomycin 6 weeks per infectious disease specialist; strep susceptibility available. Appreciate input from hand surgery who signed off, status post I&D Monitor weekly labs including CBC, CMP, CRP every Thursday. has been afebrile for the past 72 hrs. repeat u/a and chest x-ray neg. Repeat blood cx thus far neg. Pt did have right thromboplebitis which could potentially be the source. Continue to elevate both arms, compresses to the right arm, motrin. Hyponatremia mild. HLIV. monitor. IV drug user with Dilaudid, Roxicodone, oxycodone Patient counseled against. Do not recommend increasing dose of po pain meds. consider starting to wean them. Benign hypertension better controlled w hydralazine po. on clonidine and norvasc Renal insufficiency Resolved with IV fluid hydration Hypokalemia Resolved DVT prophylaxis -Lovenox renally dosed. Discharge Planning IVDU on IV abx until completion. When bed available in PO, can be transferred once repeat blood cx finalized Problem Qualifiers (1) Cellulitis: Qualified Codes: L03.114 - Cellulitis of left upper limb (2) Fever: Qualified Codes: R50.9 - Fever, unspecified Adrianne Sahu MD Mar 07, 2017 14:28
[2017-03-07 15:06] VITALS: BP 140/92; PULSE 80; RESP 22; TEMP 96; O2SAT 98
--- NOTE | 2017-03-07 18:16 | HHI.PR ---
Addendum to Inpatient Note Addendum Reason: Additional Documentation Additional Information I was just paged by the nurse because there is high suspicion that pt is "pocketing" his po dilaudid in his mouth then going to the bathroom and trying to shoot up his IV. This pm, RN gave pt the pain medication and was about to hook his IV abx, pt quickly asked to go to the bathroom. RN became suspicious and opened the door and found the patient w the cap of IV off, when asked why he did this, pt claimed that he was taking off his shirt. Today pt had been complaining and mumbling a lot when I saw him. If pt indeed is doing this, this will put him at high risk of infection and overdosing if he accumulates his pain meds and crushes them all at once and puts in his IV. Security was called and searched his room and belongings. I will ask them to also search his clothes and under his bed and pillow and guitar. apparently RN also found an empty syringe. In addition, I will change the frequency of pt's pain meds to Q8hrs and strongly recommend in tapering off his dose until d/c while in the hospital. I will also request that RN crush the pills and mix w apple sauce and to make sure that pt swallows everything prior to RN leaving the room. Adrianne Sahu MD Mar 07, 2017 18:16
[2017-03-07] MEDS ORDERED: cloNIDine HCL 0.1 MG TAB PO PRN (18:30)
[2017-03-07] MEDS ORDERED: LOPERAMIDE HCL 2 MG CAP PO PRN (18:30)
[2017-03-07 20:00] VITALS: BP 161/108; PULSE 67; RESP 18; TEMP 97.6; O2SAT 100
[2017-03-07] MEDS: ENOXAPARIN SODIUM 40 MG/0.4 ML SYRINGE SQ SCH (21:47)
[2017-03-08] VITALS: BP 112/70; PULSE 70; RESP 16; TEMP 98.2; O2SAT 99
[2017-03-08] MEDS: ceFAZolin 2 GM PREMIX 50 ML IV SCH ×3 (01:14→18:04)
[2017-03-08 04:00] VITALS: BP 111/62; PULSE 63; RESP 16; TEMP 97.9; O2SAT 97
[2017-03-08] MEDS: IBUPROFEN 800 MG TAB PO SCH ×3 (06:12→21:13)
[2017-03-08] MEDS: hydrALAZINE HCL 10 MG TAB PO SCH ×5 (06:12→23:40)
[2017-03-08 08:00] VITALS: BP 165/84; PULSE 61; RESP 18; TEMP 98.1; O2SAT 97
[2017-03-08] MEDS: THIAMINE HCL 100 MG TAB PO SCH (08:23)
[2017-03-08] MEDS: PANTOPRAZOLE SOD 40 MG DELAYED RELEASE TAB PO SCH (08:25)
[2017-03-08] MEDS: cloNIDine HCL 0.2 MG TAB PO SCH ×2 (08:25→21:12)
[2017-03-08] MEDS: HYDROmorphone HCL 2 MG TAB PO PRN ×2 (08:25→18:04)
[2017-03-08] MEDS: DOCUSATE SODIUM 50 MG/SENNA 8.6 MG TAB PO SCH ×3 (08:25→21:00)
[2017-03-08] MEDS: SODIUM CHLORIDE 0.9% FLUSH 10 ML FLUSH IV FLUSH SCH ×2 (08:26→21:13)
[2017-03-08] MEDS ORDERED: PHARMACY ORDERED LAB ONE (09:45)
[2017-03-08 12:00] VITALS: BP 135/77; PULSE 53; RESP 18; TEMP 97; O2SAT 96
[2017-03-08] MEDS: VANCOMYCIN INJ 1,250 MG in SODIUM CHLOR 0.9% 250 ML INJ 250 ML IV SCH (12:06)
[2017-03-08 12:35] LABS: AUTOMATED NEUTROPHIL # 4.4 TH/MM3 (1.8-7.7); BASOPHIL # 0.1 TH/MM3 (0-0.2); BASOPHIL % 0.9 % (0.0-2.0); EOSINOPHIL # 0.1 TH/MM3 (0-0.4); EOSINOPHIL % 1.7 % (0.0-4.0); HEMATOCRIT 34.8 % (39.0-51.0); HEMO FLAGS DIFF FINAL; LYMPH % 17.2 % (9.0-44.0); LYMPHOCYTE # 1.1 TH/MM3 (1.0-4.8); MEAN CELL VOLUME 87.7 FL (80.0-100.0); MEAN CORPUSCULAR HEMOGLOBIN 29.6 PG (27.0-34.0); MEAN CORPUSCULAR HGB CONC 33.8 % (32.0-36.0); MONO % 13.2 % (0.0-8.0); PLATELET COUNT 185 TH/MM3 (150-450); RED BLOOD COUNT 3.97 MIL/MM3 (4.50-5.90); RED CELL DISTRIBUTION WIDTH 14.6 % (11.6-17.2); WHITE BLOOD COUNT 6.5 TH/MM3 (4.0-11.0)
[2017-03-08 13:07] LABS: BICARBONATE 25.9 MEQ/L (21.0-32.0); POTASSIUM 3.9 MEQ/L (3.5-5.1)
[2017-03-08 13:09] LABS: VANCOMYCIN TROUGH 19.8 MCG/ML (5.0-10.0)
--- NOTE | 2017-03-08 15:43 | HHI.PR ---
Subjective Remarks Some suspicion yesterday patient attempting to shoot up his IV pain medications after crushing it. Therefore will now make sure all his pain medications are crushed and placed in applesauce No new complaints today Appears comfortable Continue current antibiotic regimen Objective Vitals Vital Signs Date Time Temp Pulse Resp B/P (MAP) Pulse Ox O2 Delivery O2 Flow Rate FiO2 03/08/17 12:00 97.0 53 18 135/77 (96) 96 03/08/17 08:00 98.1 61 18 165/84 (111) 97 03/08/17 04:00 97.9 63 16 111/62 (78) 97 03/08/17 04:00 Room Air 03/08/17 00:00 98.2 70 16 112/70 (84) 99 03/08/17 00:00 Room Air 03/07/17 23:55 18 03/07/17 21:50 Room Air 03/07/17 20:00 97.6 67 18 161/108 (125) 100 I/O 03/07/17 03/07/17 03/07/17 03/08/17 03/08/17 03/08/17 07:00 15:00 23:00 07:00 15:00 23:00 Intake Total 970 ml 982.5 ml 770 ml 300 ml Output Total 1550 ml 300 ml Balance 970 ml 982.5 ml -780 ml 0 ml Intake Oral 720 ml 720 ml 720 ml IV Total 250 ml 262.5 ml 50 ml 300 ml Output Urine Total 1550 ml 300 ml # Voids 5 4 # Bowel Movements 0 1 0 Result Diagram: 03/08/17 1147 03/08/17 1147 Other Results Laboratory Tests Test 03/05/17 16:30 03/06/17 08:40 03/07/17 09:30 03/08/17 11:47 Urine Color YELLOW Urine Turbidity HAZY Urine pH 5.0 Urine Specific [place] Mark 1.017 Urine Protein TRACE mg/dL Urine Glucose (UA) TRACE mg/dL Urine Ketones NEG mg/dL Urine Occult Blood NEG Urine Nitrite NEG Urine Bilirubin NEG Urine Urobilinogen LESS THAN 2.0 MG/DL Urine Leukocyte Esterase NEG Urine RBC LESS THAN 1 /hpf Urine WBC 1 /hpf Urine Bacteria RARE /hpf Urine Mucus FEW /lpf Microscopic Urinalysis Comment CULT NOT INDICATED Vancomycin Level Trough 13.5 MCG/ML 19.8 MCG/ML White Blood Count 12.1 TH/MM3 6.5 TH/MM3 Red Blood Count 4.36 MIL/MM3 3.97 MIL/MM3 Hemoglobin 12.4 GM/DL 11.8 GM/DL Hematocrit 38.2 % 34.8 % Mean Corpuscular Volume 87.6 FL 87.7 FL Mean Corpuscular Hemoglobin 28.6 PG 29.6 PG Mean Corpuscular Hemoglobin Concent 32.6 % 33.8 % Red Cell Distribution Width 14.6 % 14.6 % Platelet Count 215 TH/MM3 185 TH/MM3 Mean Platelet Volume 8.4 FL 9.2 FL Neutrophils (%) (Auto) 75.6 % 67.0 % Lymphocytes (%) (Auto) 12.2 % 17.2 % Monocytes (%) (Auto) 9.3 % 13.2 % Eosinophils (%) (Auto) 2.1 % 1.7 % Basophils (%) (Auto) 0.8 % 0.9 % Neutrophils # (Auto) 9.1 TH/MM3 4.4 TH/MM3 Lymphocytes # (Auto) 1.5 TH/MM3 1.1 TH/MM3 Monocytes # (Auto) 1.1 TH/MM3 0.9 TH/MM3 Eosinophils # (Auto) 0.3 TH/MM3 0.1 TH/MM3 Basophils # (Auto) 0.1 TH/MM3 0.1 TH/MM3 CBC Comment DIFF FINAL DIFF FINAL Differential Comment Blood Urea Nitrogen 20 MG/DL 19 MG/DL Creatinine 1.19 MG/DL 1.13 MG/DL Random Glucose 78 MG/DL 127 MG/DL Calcium Level 9.0 MG/DL 9.3 MG/DL Sodium Level 135 MEQ/L 137 MEQ/L Potassium Level 4.3 MEQ/L 3.9 MEQ/L Chloride Level 102 MEQ/L 104 MEQ/L Carbon Dioxide Level 25.1 MEQ/L 25.9 MEQ/L Anion Gap 8 MEQ/L 7 MEQ/L Estimat Glomerular Filtration Rate 65 ML/MIN 69 ML/MIN Imaging Last Impressions Upper Extremity Ultrasound 03/05/17 0000 Signed Impressions: Service Date/Time: February 21:22 - CONCLUSION: Superficial thrombus of the right upper extremity involving the cephalic vein. Otherwise negative. Shan Coleman MD Chest X-Ray 03/05/17 0000 Signed Impressions: Service Date/Time: February 12:27 - CONCLUSION: 1. Mild cardiomegaly. 2. No acute focal pulmonary infiltrate or pulmonary vascular congestion. Giovanni Welsh MD Upper Extremity CT 02/21/17 0000 Signed Impressions: Service Date/Time: Tuesday, February 21, 2017 09:26 - CONCLUSION: 1. Cellulitis, subcutaneous edema and right antecubital region loculated fluid collection characteristic of an abscess. Jon Pratt MD Chest CT 02/21/17 0000 Signed Impressions: Service Date/Time: Tuesday, February 21, 2017 09:21 - CONCLUSION: 1. Small bilateral effusions and right lower lobe basilar airspace disease. 2. Aortic aneurysm. 3. Atherosclerosis. 4. Right arm abscess and cellulitis. Jon Pratt MD Objective Remarks GENERAL: This is a well-nourished, well-developed patient, in no distress, patient appears to be quite comfortable SKIN: Left forearm is dressed. No obvious cellulitis noted now other than that skin is warm and dry HEAD: Atraumatic. Normocephalic. No temporal or scalp tenderness. EYES: Pupils equal round and reactive. Extraocular motions intact. No scleral icterus. No injection or drainage. ENT: Nose without bleeding, purulent drainage or septal hematoma. Throat without erythema, tonsillar hypertrophy or exudate. Uvula midline. Airway patent. Tongue is midline NECK: Trachea midline. No JVD or lymphadenopathy. Supple, nontender, no meningeal signs. CARDIOVASCULAR: Regular rate and rhythm without murmurs, gallops, or rubs. S1 and S2 no S3 or S4 no heave or thrill or rub or gallop RESPIRATORY: Clear to auscultation. Breath sounds equal bilaterally. No wheezes , rales, or rhonchi. GASTROINTESTINAL: Abdomen soft, non-tender, nondistended. No hepato-splenomegaly , or palpable masses. No guarding. MUSCULOSKELETAL: Extremities without clubbing, cyanosis, left upper extremity is dressed no joint tenderness, effusion, or edema noted. No calf tenderness. Negative Homans sign bilaterally. NEUROLOGICAL: Lethargic AAO 3. Cranial nerves II through XII intact. Motor and sensory grossly within normal limits. Insight and judgment are limited mood and behavior are good Procedures Left forearm incision and drainage 02/21/17 Medications and IVs Current Medications Acetaminophen (Tylenol) 650 mg ONCE ONCE PO Last administered on 02/19/17 17: 19; Start 02/19/17 at 17:00; Stop 02/19/17 at 17:04; Status DC Piperacillin Sod/ Tazobactam Sod 100 ml @ 200 mls/hr ONCE STAT IV Last administered on 02/19/17 17:19; Start 02/19/17 at 17:00; Stop 02/19/17 at 17:29 ; Status DC Vancomycin HCl 1000 mg/Sodium Chloride 250 ml @ 250 mls/hr ONCE STAT IV Last administered on 02/19/17 17:19; Start 02/19/17 at 17:00; Stop 02/19/17 at 17:59 ; Status DC Sodium Chloride 1,000 ml @ 1,000 mls/hr Q1H ONCE IV Last administered on 17:15; Start 02/19/17 at 17:00; Stop 02/19/17 at 17:59; Status DC Sodium Chloride 1,000 ml @ 1,000 mls/hr Q1H ONCE IV Last administered on 17:16; Start 02/19/17 at 17:00; Stop 02/19/17 at 17:59; Status DC Sodium Chloride 400 ml @ 1,000 mls/hr Q24M ONCE IV Last administered on 17:16; Start 02/19/17 at 17:00; Stop 02/19/17 at 17:23; Status DC Sodium Chloride 1,000 ml @ 150 mls/hr Q6H40M IV Last administered on 07:02; Start 02/19/17 at 18:31; Stop 03/06/17 at 15:52; Status DC Sodium Chloride (NS Flush) 2 ml UNSCH PRN IV FLUSH FLUSH AFTER USING IV ACCESS ; Start 02/19/17 at 18:45; Stop 02/20/17 at 13:23; Status DC Sodium Chloride (NS Flush) 2 ml BID IV FLUSH ; Start 02/19/17 at 21:00; Stop 02/20/17 at 13:23; Status DC Acetaminophen (Tylenol) 650 mg Q4H PRN PO TEMP > 100.4; Start 02/19/17 at 18:45 ; Stop 02/20/17 at 09:48; Status DC Ondansetron HCl (Zofran Inj) 4 mg Q6H PRN IVP NAUSEA OR VOMITING; Start at 18:45 Enoxaparin Sodium (Lovenox Inj) 40 mg Q24H SQ ; Start 02/19/17 at 18:45; Stop at 18:49; Status DC Naloxone HCl (Narcan Inj) 0.4 mg UNSCH PRN IV SEE LABEL COMMENTS; Start at 18:45 Senna/Docusate Sodium (Pearl-Colace) 1 tab BID PO Last administered on 08:08; Start 02/19/17 at 21:00 Magnesium Hydroxide (Milk Of Magnesia Liq) 30 ml Q12H PRN PO MILD - MODERATE CONSTIPATION; Start 02/19/17 at 18:45 Sennosides (Senokot) 17.2 mg Q12H PRN PO MODERATE - SEVERE CONSTIPATION; Start 02/19/17 at 18:45 Bisacodyl (Dulcolax Supp) 10 mg DAILY PRN RECTAL SEVERE CONSITIPATION; Start at 18:45 Lactulose (Lactulose Liq) 30 ml DAILY PRN PO SEVERE CONSITIPATION; Start at 18:45 Pharmacy Profile Note 0 ml @ 0 mls/hr UNSCH OTHER ; Start 02/19/17 at 18:45 Piperacillin Sod/ Tazobactam Sod 50 ml @ 100 mls/hr Q6H IV Last administered on 02/23/17 11:37; Start 02/19/17 at 23:00; Stop 02/23/17 at 17:45; Status DC Vancomycin HCl 1000 mg/Sodium Chloride 250 ml @ 250 mls/hr ONCE ONCE IV Last administered on 02/20/17 01:04; Start 02/19/17 at 00:00; Stop 02/19/17 at 23:20 ; Status DC Potassium Chloride (KCl) 40 meq ONCE ONCE PO Last administered on 02/19/17 22 :55; Start 02/19/17 at 22:00; Stop 02/19/17 at 22:01; Status DC Enoxaparin Sodium (Lovenox Inj) 30 mg Q24H SQ Last administered on 02/20/17 01: 03; Start 02/19/17 at 23:00; Stop 02/20/17 at 13:48; Status DC Clonidine (Catapres) 0.1 mg Q4HR PRN PO SBP>160, DBP>90 Last administered on 05:49; Start 02/20/17 at 09:00 Tramadol HCl (Ultram) 50 mg Q6H PRN PO PAIN SCALE 6 TO 10 Last administered on 02/20/17 20:36; Start 02/20/17 at 09:00; Stop 02/21/17 at 12:39; Status DC Ibuprofen (Motrin) 800 mg Q8H PRN PO PAIN SCALE 3 TO 5 Last administered on 02/27 16:24; Start 02/20/17 at 09:00; Stop 03/06/17 at 16:28; Status DC Acetaminophen (Tylenol) 650 mg Q4H PRN PO FEVER Last administered on 02/20/17 20:37; Start 02/20/17 at 09:00 Amlodipine Besylate (Norvasc) 5 mg DAILY PO Last administered on 02/25/17 09:07 ; Start 02/21/17 at 09:00; Stop 02/25/17 at 11:15; Status DC Amlodipine Besylate (Norvasc) 5 mg ONCE ONCE PO Last administered on 02/20/17 11:15; Start 02/20/17 at 11:00; Stop 02/20/17 at 11:01; Status DC Vancomycin HCl 1200 mg/Sodium Chloride 262 ml @ 250 mls/hr Q12H IV Last administered on 02/21/17 13:06; Start 02/20/17 at 13:00; Stop 02/21/17 at 14:52; Status DC Miscellaneous Information SPECIFIC LAB TO BE ... ONCE ONCE .XX Last administered on 02/21/17 12:45; Start 02/21/17 at 12:45; Stop 02/21/17 at 12:46; Status DC Sodium Chloride (NS Flush) 2 ml UNSCH PRN IV FLUSH FLUSH AFTER USING IV ACCESS Last administered on 02/22/17 21:24; Start 02/20/17 at 12:30 Sodium Chloride (NS Flush) 2 ml BID IV FLUSH Last administered on 03/08/17 08: 26; Start 02/20/17 at 21:00 Folic Acid (Folate) 1 mg DAILY PO Last administered on 02/25/17 09:07; Start at 12:30; Stop 02/25/17 at 12:29; Status DC Thiamine HCl (Vitamin B1) 100 mg DAILY PO Last administered on 03/08/17 08:23 ; Start 02/20/17 at 12:30 Multivitamins/ Minerals Therapeutic (Theragran M Tab) 1 tab DAILY PO Last administered on 02/25/17 09:07; Start 02/20/17 at 12:30; Stop 02/25/17 at 12:29; Status DC Pantoprazole Sodium (Protonix) 40 mg DAILY PO Last administered on 03/08/17 08 :25; Start 02/20/17 at 12:30 Flumazenil (Romazicon Inj) 0.2 mg Q1M PRN IV PUSH SEE LABEL COMMENTS; Start 02/20/17 at 12:30 Lorazepam (Ativan) 1 mg Q4H PRN PO CIWA 8 - 10 Last administered on 02/25/17 21 :12; Start 02/20/17 at 12:30; Stop 03/07/17 at 18:21; Status DC Lorazepam (Ativan Inj) 1 mg Q4H PRN IV PUSH CIWA 8 - 10 Last administered on 12:51; Start 02/20/17 at 12:30; Stop 03/07/17 at 18:21; Status DC Lorazepam (Ativan) 2 mg Q2H PRN PO CIWA 11-14 Last administered on 02/24/17 20: 09; Start 02/20/17 at 12:30; Stop 03/07/17 at 18:21; Status DC Lorazepam (Ativan Inj) 2 mg Q2H PRN IV PUSH CIWA 11-14 Last administered on 02/20 20:35; Start 02/20/17 at 12:30; Stop 03/07/17 at 18:21; Status DC Lorazepam (Ativan Inj) 2 mg Q1H PRN IV PUSH CIWA 15-20 Last administered on 02/21 21:33; Start 02/20/17 at 12:30; Stop 03/07/17 at 18:21; Status DC Lorazepam (Ativan Inj) 2 mg Q15M PRN IV PUSH CIWA > 20; Start 02/20/17 at 12:30 ; Stop 03/07/17 at 18:21; Status DC Haloperidol Lactate (Haldol Inj) 2 mg Q15M PRN IM SEE LABEL COMMENTS; Start 02/20/17 at 12:30 Heparin Sodium (Porcine) (Heparin Inj) 5,000 units Q8H SQ ; Start 02/20/17 at 12: 30; Status UNV Enoxaparin Sodium (Lovenox Inj) 40 mg Q24H SQ Last administered on 03/07/17 21 :47; Start 02/20/17 at 22:00 Clindamycin HCl (Cleocin) 450 mg Q6HR PO Last administered on 02/23/17 11:36; Start 02/20/17 at 18:00; Stop 02/23/17 at 17:45; Status DC Iohexol (Omnipaque 350 Inj) 100 ml STK-MED ONCE IVCONTRAST Last administered on 02/21/17 09:55; Start 02/21/17 at 09:55; Stop 02/21/17 at 09:56; Status DC Oxycodone/ Acetaminophen (Percocet 7.5-325 Mg) 1 tab Q4H PRN PO PAIN 6-10 Last administered on 02/22/17 13:27; Start 02/21/17 at 12:45; Stop 02/22/17 at 15:15; Status DC Potassium Chloride (KCl) 40 meq ONCE ONCE PO Last administered on 02/21/17 13: 05; Start 02/21/17 at 12:45; Stop 02/21/17 at 12:48; Status DC Vancomycin HCl 1500 mg/Sodium Chloride 515 ml @ 257.5 mls/ hr Q12H IV Last administered on 02/24/17 01:39; Start 02/22/17 at 01:00; Stop 02/24/17 at 10:26; Status DC Miscellaneous Information SPECIFIC LAB TO BE ... ONCE ONCE .XX ; Start at 12:45; Stop 02/23/17 at 12:46; Status DC Lidocaine HCl (Xylocaine 2% Inj) 50 ml STK-MED ONCE .ROUTE ; Start 02/21/17 at 18 :42; Stop 02/21/17 at 18:43; Status DC Bupivacaine HCl (Marcaine Pf 0.5% Inj) 30 ml STK-MED ONCE .ROUTE ; Start at 18:42; Stop 02/21/17 at 18:43; Status DC Fentanyl Citrate (fentaNYL INJ) 100 mcg STK-MED ONCE .ROUTE ; Start 02/21/17 at 19:34; Stop 02/21/17 at 19:35; Status DC Fentanyl Citrate (fentaNYL INJ) 100 mcg STK-MED ONCE .ROUTE ; Start 02/21/17 at 19:48; Stop 02/21/17 at 19:49; Status DC Miscellaneous Information ALL NURSING DEPARTME... UNSCH PRN .XX SEE LABEL COMMENTS; Start 02/21/17 at 20:20; Stop 02/22/17 at 20:19; Status DC Hydromorphone HCl (Dilaudid) 2 mg Q4H PRN PO PAIN 6-10 Last administered on 17:29; Start 02/22/17 at 15:15; Stop 03/07/17 at 18:19; Status DC Vancomycin HCl 2000 mg/Sodium Chloride 520 ml @ 250 mls/hr Q12H IV ; Start 02/24 at 01:00; Stop 02/24/17 at 01:00; Status DC Miscellaneous Information SPECIFIC LAB TO BE MELINA... ONCE ONCE .XX ; Start at 12:45; Stop 02/25/17 at 12:46; Status Cancel Miscellaneous Information SPECIFIC LAB TO BE MELINA... ONCE ONCE .XX ; Start at 00:45; Stop 02/24/17 at 00:46; Status DC Vancomycin HCl 1250 mg/Sodium Chloride 262.5 ml @ 250 mls/hr Q12H IV Last administered on 02/26/17 20:49; Start 02/24/17 at 21:00; Stop 02/27/17 at 22:03; Status DC Miscellaneous Information SPECIFIC LAB TO BE DRAWN:VANCOMYCIN TROUGH DATE TO... ONCE ONCE .XX ; Start 02/26/17 at 08:45; Stop 02/26/17 at 08:46; Status DC Amlodipine Besylate (Norvasc) 10 mg DAILY PO Last administered on 03/08/17 08: 25; Start 02/26/17 at 09:00 Amlodipine Besylate (Norvasc) 5 mg ONCE ONCE PO Last administered on 02/25/17 12:28; Start 02/25/17 at 11:15; Stop 02/25/17 at 11:18; Status DC Clonidine (Catapres) 0.1 mg Q12HR PO Last administered on 03/02/17 20:08; Start 02/26/17 at 11:00; Stop 03/03/17 at 08:49; Status DC Miscellaneous Information SPECIFIC LAB TO BE DRAWN:VANCOMYCIN TROUGH DATE TO... ONCE ONCE .XX Last administered on 02/26/17 20:45; Start 02/26/17 at 20:45; Stop 02/26/17 at 20:46; Status DC Miscellaneous Information SPECIFIC LAB TO BE MELINA... ONCE ONCE .XX Last administered on 02/27/17 20:45; Start 02/27/17 at 20:45; Stop 02/27/17 at 20:46; Status DC Vancomycin HCl 1000 mg/Sodium Chloride 250 ml @ 250 mls/hr Q12H IV Last administered on 03/06/17 10:10; Start 02/27/17 at 22:00; Stop 03/06/17 at 10:57 ; Status DC Miscellaneous Information SPECIFIC LAB TO BE MELINA... ONCE ONCE .XX Last administered on 03/01/17 09:44; Start 03/01/17 at 09:45; Stop 03/01/17 at 09:46 ; Status DC Sodium Chloride (Sodium Chloride) 1 gm DAILY PO Last administered on 03/06/17 10:08; Start 03/02/17 at 09:00; Status Future Hold Cefazolin Sodium/ Dextrose 50 ml @ 150 mls/hr Q8H IV Last administered on 03/08 08:26; Start 03/02/17 at 10:00 Clonidine (Catapres) 0.2 mg Q12HR PO Last administered on 03/08/17 08:25; Start 03/03/17 at 09:00 Miscellaneous Information SPECIFIC LAB TO BE MELINA... ONCE ONCE .XX Last administered on 03/06/17 10:21; Start 03/06/17 at 09:45; Stop 03/06/17 at 09:46 ; Status DC Vancomycin HCl 1250 mg/Sodium Chloride 262.5 ml @ 250 mls/hr Q12H IV Last administered on 03/08/17 12:06; Start 03/06/17 at 22:00; Stop 03/08/17 at 13:20 ; Status DC Miscellaneous Information SPECIFIC LAB TO BE MELINA... ONCE ONCE .XX Last administered on 03/08/17 11:30; Start 03/08/17 at 09:45; Stop 03/08/17 at 09:46 ; Status DC Hydralazine HCl (Apresoline) 10 mg Q6HR PO Last administered on 03/08/17 14:00 ; Start 03/06/17 at 18:00 Ibuprofen (Motrin) 600 mg Q8HR PO ; Start 03/06/17 at 16:00; Stop 03/06/17 at 16 :19; Status DC Ibuprofen (Motrin) 800 mg Q8HR PO Last administered on 03/08/17 14:00; Start 03/06/17 at 22:00 Hydromorphone HCl (Dilaudid) 2 mg Q8H PRN PO PAIN 6-10 Last administered on 08:25; Start 03/07/17 at 18:30 Loperamide HCl (Imodium) 2 mg Q4H PRN PO DIARRHEA; Start 03/07/17 at 18:30 Clonidine (Catapres) 0.1 mg Q6H PRN PO SBP>160, DBP>90; Start 03/07/17 at 18:30 Vancomycin HCl 1000 mg/Sodium Chloride 250 ml @ 250 mls/hr Q12H IV ; Start at 23:00 Miscellaneous Information SPECIFIC LAB TO BE DRAWN:VANCOMY... ONCE ONCE .XX ; Start 03/10/17 at 10:45; Stop 03/10/17 at 10:46 Urinary Catheter: No Vascular Central Line Catheter: No A/P Problem List: (1) Cellulitis of left arm ICD Code: L03.114 - Cellulitis of left upper limb (2) Abscess of left arm ICD Code: L02.414 - Cutaneous abscess of left upper limb (3) IV drug user ICD Code: F19.90 - Other psychoactive substance use, unspecified, uncomplicated Status: Acute (4) IV drug abuse ICD Code: F19.10 - Other psychoactive substance abuse, uncomplicated Status: Acute (5) Cellulitis ICD Code: L03.90 - Cellulitis, unspecified Status: Acute (6) Fever ICD Code: R50.9 - Fever, unspecified Status: Resolved (7) Skin abscess ICD Code: L02.91 - Cutaneous abscess, unspecified Status: Acute (8) HTN (hypertension) ICD Code: I10 - Essential (primary) hypertension Status: Acute (9) Renal insufficiency ICD Code: N28.9 - Disorder of kidney and ureter, unspecified (10) Hypokalemia ICD Code: E87.6 - Hypokalemia Assessment and Plan 47-year-old IV drug user who presented with left arm cellulitis-history of crushing up pills shooting them up Sepsis 2/2 left arm cellulitis -Resolved Mitral valve endocarditis Left arm cellulitis/abscess Currently on vancomycin 6 weeks per infectious disease specialist; strep susceptibility available. Appreciate input from hand surgery who signed off, status post I&D Monitor weekly labs including CBC, CMP, CRP every Thursday. has been afebrile for the past 72 hrs. repeat u/a and chest x-ray neg. Repeat blood cx thus far neg. Pt did have right thromboplebitis which could potentially be the source. Continue to elevate both arms, compresses to the right arm, motrin. Hyponatremia mild. HL-IV. monitor. IV drug user with Dilaudid, Roxicodone, oxycodone Patient counseled against. Do not recommend increasing dose of po pain meds. consider starting to wean them. We'll crush all meds in place in applesauce now due to suspect and suspicion of pocketing drugs and attempting to shoot them up Benign hypertension better controlled w hydralazine po. on clonidine and norvasc Renal insufficiency Resolved with IV fluid hydration Hypokalemia Resolved DVT prophylaxis -Lovenox renally dosed. Discharge Planning IVDU on IV abx until completion. When bed available in PO, can be transferred once repeat blood cx finalized Problem Qualifiers (1) Cellulitis: Qualified Codes: L03.114 - Cellulitis of left upper limb (2) Fever: Qualified Codes: R50.9 - Fever, unspecified Cleveland Gonzalez DO Mar 08, 2017 15:43
[2017-03-08 16:00] VITALS: BP 152/75; PULSE 59; RESP 18; TEMP 97.7; O2SAT 99
[2017-03-08 20:15] VITALS: BP 139/71; PULSE 58; RESP 16; TEMP 97.6; O2SAT 97
[2017-03-08] MEDS: ENOXAPARIN SODIUM 40 MG/0.4 ML SYRINGE SQ SCH (21:13)
[2017-03-08] MEDS ORDERED: VANCOMYCIN 1,000 MG/NS 250 ML IV SCH ×2 (23:00)
[2017-03-09] VITALS: BP 155/81; PULSE 50; RESP 18; TEMP 97.8; O2SAT 99
[2017-03-09] MEDS: ceFAZolin 2 GM PREMIX 50 ML IV SCH ×3 (01:37→17:27)
[2017-03-09] MEDS: HYDROmorphone HCL 2 MG TAB PO PRN ×3 (01:37→18:35)
[2017-03-09 05:16] VITALS: BP 143/83; PULSE 48; RESP 20; TEMP 98.1; O2SAT 98
[2017-03-09] MEDS: hydrALAZINE HCL 10 MG TAB PO SCH ×4 (05:18→23:44)
[2017-03-09] MEDS: IBUPROFEN 800 MG TAB PO SCH ×3 (05:18→21:33)
[2017-03-09 08:00] VITALS: BP 187/84; PULSE 48; RESP 18; TEMP 98; O2SAT 100
[2017-03-09] MEDS: THIAMINE HCL 100 MG TAB PO SCH (09:00)
[2017-03-09] MEDS: DOCUSATE SODIUM 50 MG/SENNA 8.6 MG TAB PO SCH ×2 (10:12→21:00)
[2017-03-09] MEDS: cloNIDine HCL 0.2 MG TAB PO SCH ×2 (10:12→21:33)
[2017-03-09] MEDS: PANTOPRAZOLE SOD 40 MG DELAYED RELEASE TAB PO SCH (10:12)
[2017-03-09] MEDS: SODIUM CHLORIDE 0.9% FLUSH 10 ML FLUSH IV FLUSH SCH ×2 (10:12→21:00)
[2017-03-09 12:00] VITALS: BP 181/85; PULSE 51; RESP 18; TEMP 97.8; O2SAT 99
--- NOTE | 2017-03-09 15:46 | HHI.PR ---
Subjective Remarks Some suspicion yesterday patient attempting to shoot up his IV pain medications after crushing it. Therefore will now make sure all his pain medications are crushed and placed in applesauce No new complaints today Appears comfortable Continue current antibiotic regimen 03-09 NO NEW COMPLAINTS NOT HAPPY WITH HIS NEW PAIN MEDS DW RN AND PT Objective Vitals Vital Signs Date Time Temp Pulse Resp B/P (MAP) Pulse Ox O2 Delivery O2 Flow Rate FiO2 03/09/17 12:00 97.8 51 18 181/85 (117) 99 03/09/17 10:23 Room Air 03/09/17 08:00 98.0 48 18 187/84 (118) 100 03/09/17 05:16 98.1 48 20 143/83 (103) 98 03/09/17 05:14 Room Air 03/09/17 00:00 97.8 50 18 155/81 (105) 99 03/09/17 00:00 Room Air 03/08/17 20:15 97.6 58 16 139/71 (93) 97 03/08/17 20:15 Room Air 03/08/17 20:00 Room Air 03/08/17 16:00 97.7 59 18 152/75 (100) 99 I/O 03/08/17 03/08/17 03/08/17 03/09/17 03/09/17 03/09/17 07:00 15:00 23:00 07:00 15:00 23:00 Intake Total 770 ml 300 ml 770 ml 300 ml Output Total 1550 ml 300 ml 1000 ml Balance -780 ml 0 ml -230 ml 300 ml Intake Oral 720 ml 720 ml IV Total 50 ml 300 ml 50 ml 300 ml Output Urine Total 1550 ml 300 ml 1000 ml # Bowel Movements 0 1 Result Diagram: 03/08/17 1147 03/08/17 1147 Other Results Laboratory Tests Test 03/07/17 09:30 03/08/17 11:47 White Blood Count 12.1 TH/MM3 6.5 TH/MM3 Red Blood Count 4.36 MIL/MM3 3.97 MIL/MM3 Hemoglobin 12.4 GM/DL 11.8 GM/DL Hematocrit 38.2 % 34.8 % Mean Corpuscular Volume 87.6 FL 87.7 FL Mean Corpuscular Hemoglobin 28.6 PG 29.6 PG Mean Corpuscular Hemoglobin Concent 32.6 % 33.8 % Red Cell Distribution Width 14.6 % 14.6 % Platelet Count 215 TH/MM3 185 TH/MM3 Mean Platelet Volume 8.4 FL 9.2 FL Neutrophils (%) (Auto) 75.6 % 67.0 % Lymphocytes (%) (Auto) 12.2 % 17.2 % Monocytes (%) (Auto) 9.3 % 13.2 % Eosinophils (%) (Auto) 2.1 % 1.7 % Basophils (%) (Auto) 0.8 % 0.9 % Neutrophils # (Auto) 9.1 TH/MM3 4.4 TH/MM3 Lymphocytes # (Auto) 1.5 TH/MM3 1.1 TH/MM3 Monocytes # (Auto) 1.1 TH/MM3 0.9 TH/MM3 Eosinophils # (Auto) 0.3 TH/MM3 0.1 TH/MM3 Basophils # (Auto) 0.1 TH/MM3 0.1 TH/MM3 CBC Comment DIFF FINAL DIFF FINAL Differential Comment Blood Urea Nitrogen 20 MG/DL 19 MG/DL Creatinine 1.19 MG/DL 1.13 MG/DL Random Glucose 78 MG/DL 127 MG/DL Calcium Level 9.0 MG/DL 9.3 MG/DL Sodium Level 135 MEQ/L 137 MEQ/L Potassium Level 4.3 MEQ/L 3.9 MEQ/L Chloride Level 102 MEQ/L 104 MEQ/L Carbon Dioxide Level 25.1 MEQ/L 25.9 MEQ/L Anion Gap 8 MEQ/L 7 MEQ/L Estimat Glomerular Filtration Rate 65 ML/MIN 69 ML/MIN Vancomycin Level Trough 19.8 MCG/ML Imaging Last Impressions Upper Extremity Ultrasound 03/05/17 0000 Signed Impressions: Service Date/Time: February 21:22 - CONCLUSION: Superficial thrombus of the right upper extremity involving the cephalic vein. Otherwise negative. Shan Coleman MD Chest X-Ray 03/05/17 0000 Signed Impressions: Service Date/Time: February 12:27 - CONCLUSION: 1. Mild cardiomegaly. 2. No acute focal pulmonary infiltrate or pulmonary vascular congestion. Giovanni Welsh MD Upper Extremity CT 02/21/17 0000 Signed Impressions: Service Date/Time: Tuesday, February 21, 2017 09:26 - CONCLUSION: 1. Cellulitis, subcutaneous edema and right antecubital region loculated fluid collection characteristic of an abscess. Jon Pratt MD Chest CT 02/21/17 0000 Signed Impressions: Service Date/Time: Tuesday, February 21, 2017 09:21 - CONCLUSION: 1. Small bilateral effusions and right lower lobe basilar airspace disease. 2. Aortic aneurysm. 3. Atherosclerosis. 4. Right arm abscess and cellulitis. Jon Pratt MD Objective Remarks GENERAL: This is a well-nourished, well-developed patient, in no distress, patient appears to be quite comfortable SKIN: Left forearm is dressed. No obvious cellulitis noted now other than that skin is warm and dry HEAD: Atraumatic. Normocephalic. No temporal or scalp tenderness. EYES: Pupils equal round and reactive. Extraocular motions intact. No scleral icterus. No injection or drainage. ENT: Nose without bleeding, purulent drainage or septal hematoma. Throat without erythema, tonsillar hypertrophy or exudate. Uvula midline. Airway patent. Tongue is midline NECK: Trachea midline. No JVD or lymphadenopathy. Supple, nontender, no meningeal signs. CARDIOVASCULAR: Regular rate and rhythm without murmurs, gallops, or rubs. S1 and S2 no S3 or S4 no heave or thrill or rub or gallop RESPIRATORY: Clear to auscultation. Breath sounds equal bilaterally. No wheezes , rales, or rhonchi. GASTROINTESTINAL: Abdomen soft, non-tender, nondistended. No hepato-splenomegaly , or palpable masses. No guarding. MUSCULOSKELETAL: Extremities without clubbing, cyanosis, left upper extremity is dressed no joint tenderness, effusion, or edema noted. No calf tenderness. Negative Homans sign bilaterally. NEUROLOGICAL: Lethargic AAO 3. Cranial nerves II through XII intact. Motor and sensory grossly within normal limits. Insight and judgment are limited mood and behavior are good Procedures Left forearm incision and drainage 02/21/17 Medications and IVs Current Medications Acetaminophen (Tylenol) 650 mg ONCE ONCE PO Last administered on 02/19/17 17: 19; Start 02/19/17 at 17:00; Stop 02/19/17 at 17:04; Status DC Piperacillin Sod/ Tazobactam Sod 100 ml @ 200 mls/hr ONCE STAT IV Last administered on 02/19/17 17:19; Start 02/19/17 at 17:00; Stop 02/19/17 at 17:29 ; Status DC Vancomycin HCl 1000 mg/Sodium Chloride 250 ml @ 250 mls/hr ONCE STAT IV Last administered on 02/19/17 17:19; Start 02/19/17 at 17:00; Stop 02/19/17 at 17:59 ; Status DC Sodium Chloride 1,000 ml @ 1,000 mls/hr Q1H ONCE IV Last administered on 17:15; Start 02/19/17 at 17:00; Stop 02/19/17 at 17:59; Status DC Sodium Chloride 1,000 ml @ 1,000 mls/hr Q1H ONCE IV Last administered on 17:16; Start 02/19/17 at 17:00; Stop 02/19/17 at 17:59; Status DC Sodium Chloride 400 ml @ 1,000 mls/hr Q24M ONCE IV Last administered on 17:16; Start 02/19/17 at 17:00; Stop 02/19/17 at 17:23; Status DC Sodium Chloride 1,000 ml @ 150 mls/hr Q6H40M IV Last administered on 07:02; Start 02/19/17 at 18:31; Stop 03/06/17 at 15:52; Status DC Sodium Chloride (NS Flush) 2 ml UNSCH PRN IV FLUSH FLUSH AFTER USING IV ACCESS ; Start 02/19/17 at 18:45; Stop 02/20/17 at 13:23; Status DC Sodium Chloride (NS Flush) 2 ml BID IV FLUSH ; Start 02/19/17 at 21:00; Stop 02/20/17 at 13:23; Status DC Acetaminophen (Tylenol) 650 mg Q4H PRN PO TEMP > 100.4; Start 02/19/17 at 18:45 ; Stop 02/20/17 at 09:48; Status DC Ondansetron HCl (Zofran Inj) 4 mg Q6H PRN IVP NAUSEA OR VOMITING; Start at 18:45 Enoxaparin Sodium (Lovenox Inj) 40 mg Q24H SQ ; Start 02/19/17 at 18:45; Stop at 18:49; Status DC Naloxone HCl (Narcan Inj) 0.4 mg UNSCH PRN IV SEE LABEL COMMENTS; Start at 18:45 Senna/Docusate Sodium (Pearl-Colace) 1 tab BID PO Last administered on 08:08; Start 02/19/17 at 21:00 Magnesium Hydroxide (Milk Of Magnesia Liq) 30 ml Q12H PRN PO MILD - MODERATE CONSTIPATION; Start 02/19/17 at 18:45 Sennosides (Senokot) 17.2 mg Q12H PRN PO MODERATE - SEVERE CONSTIPATION; Start 02/19/17 at 18:45 Bisacodyl (Dulcolax Supp) 10 mg DAILY PRN RECTAL SEVERE CONSITIPATION; Start at 18:45 Lactulose (Lactulose Liq) 30 ml DAILY PRN PO SEVERE CONSITIPATION; Start at 18:45 Pharmacy Profile Note 0 ml @ 0 mls/hr UNSCH OTHER ; Start 02/19/17 at 18:45; Stop 03/09/17 at 06:36; Status DC Piperacillin Sod/ Tazobactam Sod 50 ml @ 100 mls/hr Q6H IV Last administered on 02/23/17 11:37; Start 02/19/17 at 23:00; Stop 02/23/17 at 17:45; Status DC Vancomycin HCl 1000 mg/Sodium Chloride 250 ml @ 250 mls/hr ONCE ONCE IV Last administered on 02/20/17 01:04; Start 02/19/17 at 00:00; Stop 02/19/17 at 23:20 ; Status DC Potassium Chloride (KCl) 40 meq ONCE ONCE PO Last administered on 02/19/17 22 :55; Start 02/19/17 at 22:00; Stop 02/19/17 at 22:01; Status DC Enoxaparin Sodium (Lovenox Inj) 30 mg Q24H SQ Last administered on 02/20/17 01: 03; Start 02/19/17 at 23:00; Stop 02/20/17 at 13:48; Status DC Clonidine (Catapres) 0.1 mg Q4HR PRN PO SBP>160, DBP>90 Last administered on 05:49; Start 02/20/17 at 09:00; Stop 03/09/17 at 07:23; Status DC Tramadol HCl (Ultram) 50 mg Q6H PRN PO PAIN SCALE 6 TO 10 Last administered on 02/20/17 20:36; Start 02/20/17 at 09:00; Stop 02/21/17 at 12:39; Status DC Ibuprofen (Motrin) 800 mg Q8H PRN PO PAIN SCALE 3 TO 5 Last administered on 02/27 16:24; Start 02/20/17 at 09:00; Stop 03/06/17 at 16:28; Status DC Acetaminophen (Tylenol) 650 mg Q4H PRN PO FEVER Last administered on 02/20/17 20:37; Start 02/20/17 at 09:00 Amlodipine Besylate (Norvasc) 5 mg DAILY PO Last administered on 02/25/17 09:07 ; Start 02/21/17 at 09:00; Stop 02/25/17 at 11:15; Status DC Amlodipine Besylate (Norvasc) 5 mg ONCE ONCE PO Last administered on 02/20/17 11:15; Start 02/20/17 at 11:00; Stop 02/20/17 at 11:01; Status DC Vancomycin HCl 1200 mg/Sodium Chloride 262 ml @ 250 mls/hr Q12H IV Last administered on 02/21/17 13:06; Start 02/20/17 at 13:00; Stop 02/21/17 at 14:52; Status DC Miscellaneous Information SPECIFIC LAB TO BE MELINA... ONCE ONCE .XX Last administered on 02/21/17 12:45; Start 02/21/17 at 12:45; Stop 02/21/17 at 12:46; Status DC Sodium Chloride (NS Flush) 2 ml UNSCH PRN IV FLUSH FLUSH AFTER USING IV ACCESS Last administered on 02/22/17 21:24; Start 02/20/17 at 12:30 Sodium Chloride (NS Flush) 2 ml BID IV FLUSH Last administered on 03/09/17 10: 12; Start 02/20/17 at 21:00 Folic Acid (Folate) 1 mg DAILY PO Last administered on 02/25/17 09:07; Start at 12:30; Stop 02/25/17 at 12:29; Status DC Thiamine HCl (Vitamin B1) 100 mg DAILY PO Last administered on 03/08/17 08:23 ; Start 02/20/17 at 12:30 Multivitamins/ Minerals Therapeutic (Theragran M Tab) 1 tab DAILY PO Last administered on 02/25/17 09:07; Start 02/20/17 at 12:30; Stop 02/25/17 at 12:29; Status DC Pantoprazole Sodium (Protonix) 40 mg DAILY PO Last administered on 03/09/17 10 :12; Start 02/20/17 at 12:30 Flumazenil (Romazicon Inj) 0.2 mg Q1M PRN IV PUSH SEE LABEL COMMENTS; Start 02/20/17 at 12:30 Lorazepam (Ativan) 1 mg Q4H PRN PO CIWA 8 - 10 Last administered on 02/25/17 21 :12; Start 02/20/17 at 12:30; Stop 03/07/17 at 18:21; Status DC Lorazepam (Ativan Inj) 1 mg Q4H PRN IV PUSH CIWA 8 - 10 Last administered on 12:51; Start 02/20/17 at 12:30; Stop 03/07/17 at 18:21; Status DC Lorazepam (Ativan) 2 mg Q2H PRN PO CIWA 11-14 Last administered on 02/24/17 20: 09; Start 02/20/17 at 12:30; Stop 03/07/17 at 18:21; Status DC Lorazepam (Ativan Inj) 2 mg Q2H PRN IV PUSH CIWA 11-14 Last administered on 02/20 20:35; Start 02/20/17 at 12:30; Stop 03/07/17 at 18:21; Status DC Lorazepam (Ativan Inj) 2 mg Q1H PRN IV PUSH CIWA 15-20 Last administered on 02/21 21:33; Start 02/20/17 at 12:30; Stop 03/07/17 at 18:21; Status DC Lorazepam (Ativan Inj) 2 mg Q15M PRN IV PUSH CIWA > 20; Start 02/20/17 at 12:30 ; Stop 03/07/17 at 18:21; Status DC Haloperidol Lactate (Haldol Inj) 2 mg Q15M PRN IM SEE LABEL COMMENTS; Start 02/20/17 at 12:30 Heparin Sodium (Porcine) (Heparin Inj) 5,000 units Q8H SQ ; Start 02/20/17 at 12: 30; Status UNV Enoxaparin Sodium (Lovenox Inj) 40 mg Q24H SQ Last administered on 03/08/17 21 :13; Start 02/20/17 at 22:00 Clindamycin HCl (Cleocin) 450 mg Q6HR PO Last administered on 02/23/17 11:36; Start 02/20/17 at 18:00; Stop 02/23/17 at 17:45; Status DC Iohexol (Omnipaque 350 Inj) 100 ml STK-MED ONCE IVCONTRAST Last administered on 02/21/17 09:55; Start 02/21/17 at 09:55; Stop 02/21/17 at 09:56; Status DC Oxycodone/ Acetaminophen (Percocet 7.5-325 Mg) 1 tab Q4H PRN PO PAIN 6-10 Last administered on 02/22/17 13:27; Start 02/21/17 at 12:45; Stop 02/22/17 at 15:15; Status DC Potassium Chloride (KCl) 40 meq ONCE ONCE PO Last administered on 02/21/17 13: 05; Start 02/21/17 at 12:45; Stop 02/21/17 at 12:48; Status DC Vancomycin HCl 1500 mg/Sodium Chloride 515 ml @ 257.5 mls/ hr Q12H IV Last administered on 02/24/17 01:39; Start 02/22/17 at 01:00; Stop 02/24/17 at 10:26; Status DC Miscellaneous Information SPECIFIC LAB TO BE MELINA... ONCE ONCE .XX ; Start at 12:45; Stop 02/23/17 at 12:46; Status DC Lidocaine HCl (Xylocaine 2% Inj) 50 ml STK-MED ONCE .ROUTE ; Start 02/21/17 at 18 :42; Stop 02/21/17 at 18:43; Status DC Bupivacaine HCl (Marcaine Pf 0.5% Inj) 30 ml STK-MED ONCE .ROUTE ; Start at 18:42; Stop 02/21/17 at 18:43; Status DC Fentanyl Citrate (fentaNYL INJ) 100 mcg STK-MED ONCE .ROUTE ; Start 02/21/17 at 19:34; Stop 02/21/17 at 19:35; Status DC Fentanyl Citrate (fentaNYL INJ) 100 mcg STK-MED ONCE .ROUTE ; Start 02/21/17 at 19:48; Stop 02/21/17 at 19:49; Status DC Miscellaneous Information ALL NURSING DEPARTME... UNSCH PRN .XX SEE LABEL COMMENTS; Start 02/21/17 at 20:20; Stop 02/22/17 at 20:19; Status DC Hydromorphone HCl (Dilaudid) 2 mg Q4H PRN PO PAIN 6-10 Last administered on 17:29; Start 02/22/17 at 15:15; Stop 03/07/17 at 18:19; Status DC Vancomycin HCl 2000 mg/Sodium Chloride 520 ml @ 250 mls/hr Q12H IV ; Start 02/24 at 01:00; Stop 02/24/17 at 01:00; Status DC Miscellaneous Information SPECIFIC LAB TO BE MELINA... ONCE ONCE .XX ; Start at 12:45; Stop 02/25/17 at 12:46; Status Cancel Miscellaneous Information SPECIFIC LAB TO BE MELINA... ONCE ONCE .XX ; Start at 00:45; Stop 02/24/17 at 00:46; Status DC Vancomycin HCl 1250 mg/Sodium Chloride 262.5 ml @ 250 mls/hr Q12H IV Last administered on 02/26/17 20:49; Start 02/24/17 at 21:00; Stop 02/27/17 at 22:03; Status DC Miscellaneous Information SPECIFIC LAB TO BE DRAWN:VANCOMYCIN TROUGH DATE TO... ONCE ONCE .XX ; Start 02/26/17 at 08:45; Stop 02/26/17 at 08:46; Status DC Amlodipine Besylate (Norvasc) 10 mg DAILY PO Last administered on 03/09/17 10: 12; Start 02/26/17 at 09:00 Amlodipine Besylate (Norvasc) 5 mg ONCE ONCE PO Last administered on 02/25/17 12:28; Start 02/25/17 at 11:15; Stop 02/25/17 at 11:18; Status DC Clonidine (Catapres) 0.1 mg Q12HR PO Last administered on 03/02/17 20:08; Start 02/26/17 at 11:00; Stop 03/03/17 at 08:49; Status DC Miscellaneous Information SPECIFIC LAB TO BE DRAWN:VANCOMYCIN TROUGH DATE TO... ONCE ONCE .XX Last administered on 02/26/17 20:45; Start 02/26/17 at 20:45; Stop 02/26/17 at 20:46; Status DC Miscellaneous Information SPECIFIC LAB TO BE MELINA... ONCE ONCE .XX Last administered on 02/27/17 20:45; Start 02/27/17 at 20:45; Stop 02/27/17 at 20:46; Status DC Vancomycin HCl 1000 mg/Sodium Chloride 250 ml @ 250 mls/hr Q12H IV Last administered on 03/06/17 10:10; Start 02/27/17 at 22:00; Stop 03/06/17 at 10:57 ; Status DC Miscellaneous Information SPECIFIC LAB TO BE MELINA... ONCE ONCE .XX Last administered on 03/01/17 09:44; Start 03/01/17 at 09:45; Stop 03/01/17 at 09:46 ; Status DC Sodium Chloride (Sodium Chloride) 1 gm DAILY PO Last administered on 03/06/17 10:08; Start 03/02/17 at 09:00; Status Future Hold Cefazolin Sodium/ Dextrose 50 ml @ 150 mls/hr Q8H IV Last administered on 03/09 10:12; Start 03/02/17 at 10:00 Clonidine (Catapres) 0.2 mg Q12HR PO Last administered on 03/09/17 10:12; Start 03/03/17 at 09:00 Miscellaneous Information SPECIFIC LAB TO BE MELINA... ONCE ONCE .XX Last administered on 03/06/17 10:21; Start 03/06/17 at 09:45; Stop 03/06/17 at 09:46 ; Status DC Vancomycin HCl 1250 mg/Sodium Chloride 262.5 ml @ 250 mls/hr Q12H IV Last administered on 03/08/17 12:06; Start 03/06/17 at 22:00; Stop 03/08/17 at 13:20 ; Status DC Miscellaneous Information SPECIFIC LAB TO BE MELINA... ONCE ONCE .XX Last administered on 03/08/17 11:30; Start 03/08/17 at 09:45; Stop 03/08/17 at 09:46 ; Status DC Hydralazine HCl (Apresoline) 10 mg Q6HR PO Last administered on 03/09/17 13:26 ; Start 03/06/17 at 18:00 Ibuprofen (Motrin) 600 mg Q8HR PO ; Start 03/06/17 at 16:00; Stop 03/06/17 at 16 :19; Status DC Ibuprofen (Motrin) 800 mg Q8HR PO Last administered on 03/09/17 13:26; Start 03/06/17 at 22:00 Hydromorphone HCl (Dilaudid) 2 mg Q8H PRN PO PAIN 6-10 Last administered on 10:15; Start 03/07/17 at 18:30 Loperamide HCl (Imodium) 2 mg Q4H PRN PO DIARRHEA; Start 03/07/17 at 18:30 Clonidine (Catapres) 0.1 mg Q6H PRN PO SBP>160, DBP>90; Start 03/07/17 at 18:30 Vancomycin HCl 1000 mg/Sodium Chloride 250 ml @ 250 mls/hr Q12H IV Last administered on 03/08/17 23:41; Start 03/08/17 at 23:00; Stop 03/09/17 at 06:36 ; Status DC Miscellaneous Information SPECIFIC LAB TO BE DRAWN:VANCOMY... ONCE ONCE .XX ; Start 03/10/17 at 10:45; Stop 03/10/17 at 10:46; Status Cancel Urinary Catheter: No A/P Problem List: (1) Cellulitis of left arm ICD Code: L03.114 - Cellulitis of left upper limb (2) Abscess of left arm ICD Code: L02.414 - Cutaneous abscess of left upper limb (3) IV drug user ICD Code: F19.90 - Other psychoactive substance use, unspecified, uncomplicated Status: Acute (4) IV drug abuse ICD Code: F19.10 - Other psychoactive substance abuse, uncomplicated Status: Acute (5) Cellulitis ICD Code: L03.90 - Cellulitis, unspecified Status: Acute (6) Fever ICD Code: R50.9 - Fever, unspecified Status: Resolved (7) Skin abscess ICD Code: L02.91 - Cutaneous abscess, unspecified Status: Acute (8) HTN (hypertension) ICD Code: I10 - Essential (primary) hypertension Status: Acute (9) Renal insufficiency ICD Code: N28.9 - Disorder of kidney and ureter, unspecified (10) Hypokalemia ICD Code: E87.6 - Hypokalemia Assessment and Plan 47-year-old IV drug user who presented with left arm cellulitis-history of crushing up pills shooting them up Sepsis 2/2 left arm cellulitis -Resolved Mitral valve endocarditis Left arm cellulitis/abscess Currently on vancomycin 6 weeks per infectious disease specialist; strep susceptibility available. Appreciate input from hand surgery who signed off, status post I&D Monitor weekly labs including CBC, CMP, CRP every Thursday. has been afebrile for the past 72 hrs. repeat u/a and chest x-ray neg. Repeat blood cx thus far neg. Pt did have right thromboplebitis which could potentially be the source. Continue to elevate both arms, compresses to the right arm, motrin. Hyponatremia mild. HL-IV. monitor. IV drug user with Dilaudid, Roxicodone, oxycodone Patient counseled against. Do not recommend increasing dose of po pain meds. consider starting to wean them. We'll crush all meds in place in applesauce now due to suspect and suspicion of pocketing drugs and attempting to shoot them up Benign hypertension better controlled w hydralazine po. on clonidine and norvasc Renal insufficiency Resolved with IV fluid hydration Hypokalemia Resolved DVT prophylaxis -Lovenox renally dosed. Discharge Planning IVDU on IV abx until completion. When bed available in PO, can be transferred once repeat blood cx finalized CONTINUE CURRENT PAIN MEDS NO CALLS FOR ADJUSTMENT OF PAIN MEDS Problem Qualifiers (1) Cellulitis: Qualified Codes: L03.114 - Cellulitis of left upper limb (2) Fever: Qualified Codes: R50.9 - Fever, unspecified Cleveland Gonzalez DO Mar 09, 2017 15:46
[2017-03-09 16:00] VITALS: BP 153/68; PULSE 54; RESP 18; TEMP 97.7; O2SAT 98
--- NOTE | 2017-03-09 18:20 | HHI.IDPN ---
Subjective Subjective Remarks chart reviewed is a 47-year-old male with current IV drug user with Dilaudid, oxycodone, and Roxicodone who presented with fatigue and left arm cellulitis. Patient stated that he last used IV drugs 2 days ago. He has some swelling then erythema after use. Patient stated that since it got worse he presented to the ED. He denies any other types of drug use. Stated he stopped smoking tobacco long time ago. Denies any alcohol use. Sepsis workup was initiated. Blood cultures are negative. Doppler shows a complex 5.6 cm fluid collection possible abscess. 2-D echo positive for mitral valve vegetation. D/W RN No fever No rash No diarrhea IV right side with e/o infiltration ? phlebitis clinically. RN informs me he attempted to do drugs IV in hospital. Now being closely watched and pain meds administration being monitored. Antibiotics Vancomycin cefazoline Lines LIne site ok Past Medical History Hypertension: Untreated. 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 Vital Signs Date Time Temp Pulse Resp B/P (MAP) Pulse Ox O2 Delivery O2 Flow Rate FiO2 03/09/17 16:00 97.7 54 18 153/68 (96) 98 03/09/17 12:00 97.8 51 18 181/85 (117) 99 03/09/17 10:23 Room Air 03/09/17 08:00 98.0 48 18 187/84 (118) 100 03/09/17 05:16 98.1 48 20 143/83 (103) 98 03/09/17 05:14 Room Air 03/09/17 00:00 97.8 50 18 155/81 (105) 99 03/09/17 00:00 Room Air 03/08/17 20:15 97.6 58 16 139/71 (93) 97 03/08/17 20:15 Room Air 03/08/17 20:00 Room Air . Laboratory Tests Test 03/08/17 11:47 White Blood Count 6.5 TH/MM3 Red Blood Count 3.97 MIL/MM3 Hemoglobin 11.8 GM/DL Hematocrit 34.8 % Mean Corpuscular Volume 87.7 FL Mean Corpuscular Hemoglobin 29.6 PG Mean Corpuscular Hemoglobin Concent 33.8 % Red Cell Distribution Width 14.6 % Platelet Count 185 TH/MM3 Mean Platelet Volume 9.2 FL Neutrophils (%) (Auto) 67.0 % Lymphocytes (%) (Auto) 17.2 % Monocytes (%) (Auto) 13.2 % Eosinophils (%) (Auto) 1.7 % Basophils (%) (Auto) 0.9 % Neutrophils # (Auto) 4.4 TH/MM3 Lymphocytes # (Auto) 1.1 TH/MM3 Monocytes # (Auto) 0.9 TH/MM3 Eosinophils # (Auto) 0.1 TH/MM3 Basophils # (Auto) 0.1 TH/MM3 CBC Comment DIFF FINAL Differential Comment Laboratory Tests Test 03/08/17 11:47 Blood Urea Nitrogen 19 MG/DL Creatinine 1.13 MG/DL Random Glucose 127 MG/DL Calcium Level 9.3 MG/DL Sodium Level 137 MEQ/L Potassium Level 3.9 MEQ/L Chloride Level 104 MEQ/L Carbon Dioxide Level 25.9 MEQ/L Anion Gap 7 MEQ/L Estimat Glomerular Filtration Rate 69 ML/MIN Imaging Last Impressions Chest X-Ray 03/05/17 0000 Signed Impressions: Service Date/Time: February 12:27 - CONCLUSION: 1. Mild cardiomegaly. 2. No acute focal pulmonary infiltrate or pulmonary vascular congestion. Giovanni Welsh MD Upper Extremity CT 02/21/17 0000 Signed Impressions: Service Date/Time: Tuesday, February 21, 2017 09:26 - CONCLUSION: 1. Cellulitis, subcutaneous edema and right antecubital region loculated fluid collection characteristic of an abscess. Jon Pratt MD Chest CT 02/21/17 0000 Signed Impressions: Service Date/Time: Tuesday, February 21, 2017 09:21 - CONCLUSION: 1. Small bilateral effusions and right lower lobe basilar airspace disease. 2. Aortic aneurysm. 3. Atherosclerosis. 4. Right arm abscess and cellulitis. Jon Pratt MD Upper Extremity Ultrasound 02/19/17 0000 Signed Impressions: Service Date/Time: January 19:30 - CONCLUSION: 1. No DVT. 2. 5.6 cm complex mass/fluid collection likely related to an abscess. Shan Hrer MD Physical Exam GENERAL:Awake and alert, ambulating in room. Just came out os shower - no dressing in his LUE and drain hanging out SKIN: Multiple track mcclain visible. HEAD: Atraumatic. Normocephalic. No temporal or scalp tenderness. EYES: Pupils equal round and reactive. Extraocular motions intact. No scleral icterus. No injection or drainage. ENT: Nose without bleeding, purulent drainage or septal hematoma. Throat without erythema, tonsillar hypertrophy or exudate. Uvula midline. Airway patent. NECK: Trachea midline. Supple, nontender, no meningeal signs. CARDIOVASCULAR: No murmur appreciated. RESPIRATORY: Breath sounds decreased bilaterally. GASTROINTESTINAL: Abdomen soft, non-tender, nondistended. MUSCULOSKELETAL: Left arm and forearm with erythema, induration noted present. has drain coing out of the surgical site. L antecubital area with approximated clean incision non tender induration. No erythema, no fluctuance R forearm + mildly tender cord palpable NEUROLOGICAL: Awake and alert. Grossly nonfocal. IV line sites with no evidence of infection. Assessment & Plan Remarks Assessment and Plan Sepsis present on admission, better Mitral valve endocarditis. Left Arm abscess S/P I and D, GAS Possible septic thrombophlebitis of Lt arm. IVDA New fever ? phlebitis R forearm Recs cont cefaoline for GAS DC Vanco IV (target 15-20) for now D/w case management of possible discharge in am on Dalvance for 2 doses total post discharge at 12 days interval in Infusion clinic. Will d.w case management again in am. Will also need Clindamycin oral on discharge. Not a good candidate for PICC or IV line infusions in hospital. Safer to administer Dalvance once in 12 days using a fresh PIV each time. annetta RN annetta Gonzalez. Cindy Michel MD Mar 09, 2017 18:20
[2017-03-09 20:00] VITALS: BP 170/90; PULSE 86; RESP 18; TEMP 101.5; O2SAT 98
[2017-03-09] MEDS: ACETAMINOPHEN 325 MG TAB PO PRN (21:32)
[2017-03-09] MEDS: ENOXAPARIN SODIUM 40 MG/0.4 ML SYRINGE SQ SCH (21:33)
[2017-03-10] VITALS: BP 125/73; PULSE 57; RESP 16; TEMP 98.5; O2SAT 98
[2017-03-10] MEDS: HYDROmorphone HCL 2 MG TAB PO PRN ×2 (02:00→18:35)
[2017-03-10] MEDS: ceFAZolin 2 GM PREMIX 50 ML IV SCH ×3 (03:26→16:55)
[2017-03-10 04:00] VITALS: BP 121/69; PULSE 54; RESP 16; TEMP 97.7; O2SAT 98
[2017-03-10] MEDS: IBUPROFEN 800 MG TAB PO SCH ×3 (05:52→22:37)
[2017-03-10] MEDS: hydrALAZINE HCL 10 MG TAB PO SCH ×3 (05:52→16:55)
[2017-03-10 08:32] VITALS: BP 146/88; PULSE 50; RESP 18; TEMP 98; O2SAT 98
[2017-03-10] MEDS: cloNIDine HCL 0.2 MG TAB PO SCH ×2 (09:25→22:37)
[2017-03-10] MEDS: PANTOPRAZOLE SOD 40 MG DELAYED RELEASE TAB PO SCH (09:26)
[2017-03-10] MEDS: SODIUM CHLORIDE 0.9% FLUSH 10 ML FLUSH IV FLUSH SCH ×2 (09:26→22:37)
[2017-03-10] MEDS: THIAMINE HCL 100 MG TAB PO SCH (09:26)
[2017-03-10] MEDS: DOCUSATE SODIUM 50 MG/SENNA 8.6 MG TAB PO SCH ×2 (09:26→21:00)
[2017-03-10] MEDS ORDERED: PHARMACY ORDERED LAB ONE (10:45)
[2017-03-10 12:22] VITALS: BP 118/65; PULSE 49; RESP 18; TEMP 97.9; O2SAT 96
--- NOTE | 2017-03-10 12:50 | HHI.PR ---
Subjective Remarks Some suspicion yesterday patient attempting to shoot up his IV pain medications after crushing it. Therefore will now make sure all his pain medications are crushed and placed in applesauce No new complaints today Appears comfortable Continue current antibiotic regimen 03-09 NO NEW COMPLAINTS NOT HAPPY WITH HIS NEW PAIN MEDS DW RN AND PT 03-10 AWAIT ID TO DETERMINE PLAN AND ACCEPTANCE WITH CASE MANAGEMENT NO NEW COMPLAINTS DW RN AND PT Objective Vitals Vital Signs Date Time Temp Pulse Resp B/P (MAP) Pulse Ox O2 Delivery O2 Flow Rate FiO2 03/10/17 12:22 97.9 49 18 118/65 (82) 96 03/10/17 09:31 Room Air 03/10/17 08:32 98.0 50 18 146/88 (107) 98 03/10/17 04:00 97.7 54 16 121/69 (86) 98 03/10/17 04:00 Room Air 03/10/17 00:00 Room Air 03/10/17 00:00 98.5 57 16 125/73 (90) 98 03/09/17 20:00 Room Air 03/09/17 20:00 101.5 86 18 170/90 (116) 98 03/09/17 16:00 97.7 54 18 153/68 (96) 98 I/O 03/09/17 03/09/17 03/09/17 03/10/17 03/10/17 03/10/17 07:00 15:00 23:00 07:00 15:00 23:00 Intake Total 300 ml 960 ml Output Total 1600 ml Balance 300 ml -640 ml Intake Oral 960 ml IV Total 300 ml Output Urine Total 1600 ml # Voids 2 # Bowel Movements 1 Result Diagram: 03/08/17 1147 03/08/17 1147 Other Results Laboratory Tests Test 03/08/17 11:47 White Blood Count 6.5 TH/MM3 Red Blood Count 3.97 MIL/MM3 Hemoglobin 11.8 GM/DL Hematocrit 34.8 % Mean Corpuscular Volume 87.7 FL Mean Corpuscular Hemoglobin 29.6 PG Mean Corpuscular Hemoglobin Concent 33.8 % Red Cell Distribution Width 14.6 % Platelet Count 185 TH/MM3 Mean Platelet Volume 9.2 FL Neutrophils (%) (Auto) 67.0 % Lymphocytes (%) (Auto) 17.2 % Monocytes (%) (Auto) 13.2 % Eosinophils (%) (Auto) 1.7 % Basophils (%) (Auto) 0.9 % Neutrophils # (Auto) 4.4 TH/MM3 Lymphocytes # (Auto) 1.1 TH/MM3 Monocytes # (Auto) 0.9 TH/MM3 Eosinophils # (Auto) 0.1 TH/MM3 Basophils # (Auto) 0.1 TH/MM3 CBC Comment DIFF FINAL Differential Comment Blood Urea Nitrogen 19 MG/DL Creatinine 1.13 MG/DL Random Glucose 127 MG/DL Calcium Level 9.3 MG/DL Sodium Level 137 MEQ/L Potassium Level 3.9 MEQ/L Chloride Level 104 MEQ/L Carbon Dioxide Level 25.9 MEQ/L Anion Gap 7 MEQ/L Estimat Glomerular Filtration Rate 69 ML/MIN Vancomycin Level Trough 19.8 MCG/ML Imaging Last Impressions Upper Extremity Ultrasound 03/05/17 0000 Signed Impressions: Service Date/Time: February 21:22 - CONCLUSION: Superficial thrombus of the right upper extremity involving the cephalic vein. Otherwise negative. Shan Coleman MD Chest X-Ray 03/05/17 0000 Signed Impressions: Service Date/Time: February 12:27 - CONCLUSION: 1. Mild cardiomegaly. 2. No acute focal pulmonary infiltrate or pulmonary vascular congestion. Giovanni Welsh MD Upper Extremity CT 02/21/17 0000 Signed Impressions: Service Date/Time: Tuesday, February 21, 2017 09:26 - CONCLUSION: 1. Cellulitis, subcutaneous edema and right antecubital region loculated fluid collection characteristic of an abscess. Jon Pratt MD Chest CT 02/21/17 0000 Signed Impressions: Service Date/Time: Tuesday, February 21, 2017 09:21 - CONCLUSION: 1. Small bilateral effusions and right lower lobe basilar airspace disease. 2. Aortic aneurysm. 3. Atherosclerosis. 4. Right arm abscess and cellulitis. Jon Pratt MD Objective Remarks GENERAL: This is a well-nourished, well-developed patient, in no distress, patient appears to be quite comfortable SKIN: Left forearm is dressed. No obvious cellulitis noted now other than that skin is warm and dry HEAD: Atraumatic. Normocephalic. No temporal or scalp tenderness. EYES: Pupils equal round and reactive. Extraocular motions intact. No scleral icterus. No injection or drainage. ENT: Nose without bleeding, purulent drainage or septal hematoma. Throat without erythema, tonsillar hypertrophy or exudate. Uvula midline. Airway patent. Tongue is midline NECK: Trachea midline. No JVD or lymphadenopathy. Supple, nontender, no meningeal signs. CARDIOVASCULAR: Regular rate and rhythm without murmurs, gallops, or rubs. S1 and S2 no S3 or S4 no heave or thrill or rub or gallop RESPIRATORY: Clear to auscultation. Breath sounds equal bilaterally. No wheezes , rales, or rhonchi. GASTROINTESTINAL: Abdomen soft, non-tender, nondistended. No hepato-splenomegaly , or palpable masses. No guarding. MUSCULOSKELETAL: Extremities without clubbing, cyanosis, left upper extremity is dressed no joint tenderness, effusion, or edema noted. No calf tenderness. Negative Homans sign bilaterally. NEUROLOGICAL: Lethargic AAO 3. Cranial nerves II through XII intact. Motor and sensory grossly within normal limits. Insight and judgment are limited mood and behavior are good Procedures Left forearm incision and drainage 02/21/17 Medications and IVs Current Medications Acetaminophen (Tylenol) 650 mg ONCE ONCE PO Last administered on 02/19/17 17: 19; Start 02/19/17 at 17:00; Stop 02/19/17 at 17:04; Status DC Piperacillin Sod/ Tazobactam Sod 100 ml @ 200 mls/hr ONCE STAT IV Last administered on 02/19/17 17:19; Start 02/19/17 at 17:00; Stop 02/19/17 at 17:29 ; Status DC Vancomycin HCl 1000 mg/Sodium Chloride 250 ml @ 250 mls/hr ONCE STAT IV Last administered on 02/19/17 17:19; Start 02/19/17 at 17:00; Stop 02/19/17 at 17:59 ; Status DC Sodium Chloride 1,000 ml @ 1,000 mls/hr Q1H ONCE IV Last administered on 17:15; Start 02/19/17 at 17:00; Stop 02/19/17 at 17:59; Status DC Sodium Chloride 1,000 ml @ 1,000 mls/hr Q1H ONCE IV Last administered on 17:16; Start 02/19/17 at 17:00; Stop 02/19/17 at 17:59; Status DC Sodium Chloride 400 ml @ 1,000 mls/hr Q24M ONCE IV Last administered on 17:16; Start 02/19/17 at 17:00; Stop 02/19/17 at 17:23; Status DC Sodium Chloride 1,000 ml @ 150 mls/hr Q6H40M IV Last administered on 07:02; Start 02/19/17 at 18:31; Stop 03/06/17 at 15:52; Status DC Sodium Chloride (NS Flush) 2 ml UNSCH PRN IV FLUSH FLUSH AFTER USING IV ACCESS ; Start 02/19/17 at 18:45; Stop 02/20/17 at 13:23; Status DC Sodium Chloride (NS Flush) 2 ml BID IV FLUSH ; Start 02/19/17 at 21:00; Stop 02/20/17 at 13:23; Status DC Acetaminophen (Tylenol) 650 mg Q4H PRN PO TEMP > 100.4; Start 02/19/17 at 18:45 ; Stop 02/20/17 at 09:48; Status DC Ondansetron HCl (Zofran Inj) 4 mg Q6H PRN IVP NAUSEA OR VOMITING; Start at 18:45 Enoxaparin Sodium (Lovenox Inj) 40 mg Q24H SQ ; Start 02/19/17 at 18:45; Stop at 18:49; Status DC Naloxone HCl (Narcan Inj) 0.4 mg UNSCH PRN IV SEE LABEL COMMENTS; Start at 18:45 Senna/Docusate Sodium (Pearl-Colace) 1 tab BID PO Last administered on 08:08; Start 02/19/17 at 21:00 Magnesium Hydroxide (Milk Of Magnesia Liq) 30 ml Q12H PRN PO MILD - MODERATE CONSTIPATION; Start 02/19/17 at 18:45 Sennosides (Senokot) 17.2 mg Q12H PRN PO MODERATE - SEVERE CONSTIPATION; Start 02/19/17 at 18:45 Bisacodyl (Dulcolax Supp) 10 mg DAILY PRN RECTAL SEVERE CONSITIPATION; Start at 18:45 Lactulose (Lactulose Liq) 30 ml DAILY PRN PO SEVERE CONSITIPATION; Start at 18:45 Pharmacy Profile Note 0 ml @ 0 mls/hr UNSCH OTHER ; Start 02/19/17 at 18:45; Stop 03/09/17 at 06:36; Status DC Piperacillin Sod/ Tazobactam Sod 50 ml @ 100 mls/hr Q6H IV Last administered on 02/23/17 11:37; Start 02/19/17 at 23:00; Stop 02/23/17 at 17:45; Status DC Vancomycin HCl 1000 mg/Sodium Chloride 250 ml @ 250 mls/hr ONCE ONCE IV Last administered on 02/20/17 01:04; Start 02/19/17 at 00:00; Stop 02/19/17 at 23:20 ; Status DC Potassium Chloride (KCl) 40 meq ONCE ONCE PO Last administered on 02/19/17 22 :55; Start 02/19/17 at 22:00; Stop 02/19/17 at 22:01; Status DC Enoxaparin Sodium (Lovenox Inj) 30 mg Q24H SQ Last administered on 02/20/17 01: 03; Start 02/19/17 at 23:00; Stop 02/20/17 at 13:48; Status DC Clonidine (Catapres) 0.1 mg Q4HR PRN PO SBP>160, DBP>90 Last administered on 05:49; Start 02/20/17 at 09:00; Stop 03/09/17 at 07:23; Status DC Tramadol HCl (Ultram) 50 mg Q6H PRN PO PAIN SCALE 6 TO 10 Last administered on 02/20/17 20:36; Start 02/20/17 at 09:00; Stop 02/21/17 at 12:39; Status DC Ibuprofen (Motrin) 800 mg Q8H PRN PO PAIN SCALE 3 TO 5 Last administered on 02/27 16:24; Start 02/20/17 at 09:00; Stop 03/06/17 at 16:28; Status DC Acetaminophen (Tylenol) 650 mg Q4H PRN PO FEVER Last administered on 03/09/17 21:32; Start 02/20/17 at 09:00 Amlodipine Besylate (Norvasc) 5 mg DAILY PO Last administered on 02/25/17 09:07 ; Start 02/21/17 at 09:00; Stop 02/25/17 at 11:15; Status DC Amlodipine Besylate (Norvasc) 5 mg ONCE ONCE PO Last administered on 02/20/17 11:15; Start 02/20/17 at 11:00; Stop 02/20/17 at 11:01; Status DC Vancomycin HCl 1200 mg/Sodium Chloride 262 ml @ 250 mls/hr Q12H IV Last administered on 02/21/17 13:06; Start 02/20/17 at 13:00; Stop 02/21/17 at 14:52; Status DC Miscellaneous Information SPECIFIC LAB TO BE MELINA... ONCE ONCE .XX Last administered on 02/21/17 12:45; Start 02/21/17 at 12:45; Stop 02/21/17 at 12:46; Status DC Sodium Chloride (NS Flush) 2 ml UNSCH PRN IV FLUSH FLUSH AFTER USING IV ACCESS Last administered on 02/22/17 21:24; Start 02/20/17 at 12:30 Sodium Chloride (NS Flush) 2 ml BID IV FLUSH Last administered on 03/10/17 09: 26; Start 02/20/17 at 21:00 Folic Acid (Folate) 1 mg DAILY PO Last administered on 02/25/17 09:07; Start at 12:30; Stop 02/25/17 at 12:29; Status DC Thiamine HCl (Vitamin B1) 100 mg DAILY PO Last administered on 03/10/17 09:26 ; Start 02/20/17 at 12:30 Multivitamins/ Minerals Therapeutic (Theragran M Tab) 1 tab DAILY PO Last administered on 02/25/17 09:07; Start 02/20/17 at 12:30; Stop 02/25/17 at 12:29; Status DC Pantoprazole Sodium (Protonix) 40 mg DAILY PO Last administered on 03/10/17 09 :26; Start 02/20/17 at 12:30 Flumazenil (Romazicon Inj) 0.2 mg Q1M PRN IV PUSH SEE LABEL COMMENTS; Start 02/20/17 at 12:30 Lorazepam (Ativan) 1 mg Q4H PRN PO CIWA 8 - 10 Last administered on 02/25/17 21 :12; Start 02/20/17 at 12:30; Stop 03/07/17 at 18:21; Status DC Lorazepam (Ativan Inj) 1 mg Q4H PRN IV PUSH CIWA 8 - 10 Last administered on 12:51; Start 02/20/17 at 12:30; Stop 03/07/17 at 18:21; Status DC Lorazepam (Ativan) 2 mg Q2H PRN PO CIWA 11-14 Last administered on 02/24/17 20: 09; Start 02/20/17 at 12:30; Stop 03/07/17 at 18:21; Status DC Lorazepam (Ativan Inj) 2 mg Q2H PRN IV PUSH CIWA 11-14 Last administered on 02/20 20:35; Start 02/20/17 at 12:30; Stop 03/07/17 at 18:21; Status DC Lorazepam (Ativan Inj) 2 mg Q1H PRN IV PUSH CIWA 15-20 Last administered on 02/21 21:33; Start 02/20/17 at 12:30; Stop 03/07/17 at 18:21; Status DC Lorazepam (Ativan Inj) 2 mg Q15M PRN IV PUSH CIWA > 20; Start 02/20/17 at 12:30 ; Stop 03/07/17 at 18:21; Status DC Haloperidol Lactate (Haldol Inj) 2 mg Q15M PRN IM SEE LABEL COMMENTS; Start 02/20/17 at 12:30 Heparin Sodium (Porcine) (Heparin Inj) 5,000 units Q8H SQ ; Start 02/20/17 at 12: 30; Status UNV Enoxaparin Sodium (Lovenox Inj) 40 mg Q24H SQ Last administered on 03/09/17 21 :33; Start 02/20/17 at 22:00 Clindamycin HCl (Cleocin) 450 mg Q6HR PO Last administered on 02/23/17 11:36; Start 02/20/17 at 18:00; Stop 02/23/17 at 17:45; Status DC Iohexol (Omnipaque 350 Inj) 100 ml STK-MED ONCE IVCONTRAST Last administered on 02/21/17 09:55; Start 02/21/17 at 09:55; Stop 02/21/17 at 09:56; Status DC Oxycodone/ Acetaminophen (Percocet 7.5-325 Mg) 1 tab Q4H PRN PO PAIN 6-10 Last administered on 02/22/17 13:27; Start 02/21/17 at 12:45; Stop 02/22/17 at 15:15; Status DC Potassium Chloride (KCl) 40 meq ONCE ONCE PO Last administered on 02/21/17 13: 05; Start 02/21/17 at 12:45; Stop 02/21/17 at 12:48; Status DC Vancomycin HCl 1500 mg/Sodium Chloride 515 ml @ 257.5 mls/ hr Q12H IV Last administered on 02/24/17 01:39; Start 02/22/17 at 01:00; Stop 02/24/17 at 10:26; Status DC Miscellaneous Information SPECIFIC LAB TO BE MELINA... ONCE ONCE .XX ; Start at 12:45; Stop 02/23/17 at 12:46; Status DC Lidocaine HCl (Xylocaine 2% Inj) 50 ml STK-MED ONCE .ROUTE ; Start 02/21/17 at 18 :42; Stop 02/21/17 at 18:43; Status DC Bupivacaine HCl (Marcaine Pf 0.5% Inj) 30 ml STK-MED ONCE .ROUTE ; Start at 18:42; Stop 02/21/17 at 18:43; Status DC Fentanyl Citrate (fentaNYL INJ) 100 mcg STK-MED ONCE .ROUTE ; Start 02/21/17 at 19:34; Stop 02/21/17 at 19:35; Status DC Fentanyl Citrate (fentaNYL INJ) 100 mcg STK-MED ONCE .ROUTE ; Start 02/21/17 at 19:48; Stop 02/21/17 at 19:49; Status DC Miscellaneous Information ALL NURSING DEPARTME... UNSCH PRN .XX SEE LABEL COMMENTS; Start 02/21/17 at 20:20; Stop 02/22/17 at 20:19; Status DC Hydromorphone HCl (Dilaudid) 2 mg Q4H PRN PO PAIN 6-10 Last administered on 17:29; Start 02/22/17 at 15:15; Stop 03/07/17 at 18:19; Status DC Vancomycin HCl 2000 mg/Sodium Chloride 520 ml @ 250 mls/hr Q12H IV ; Start 02/24 at 01:00; Stop 02/24/17 at 01:00; Status DC Miscellaneous Information SPECIFIC LAB TO BE MELINA... ONCE ONCE .XX ; Start at 12:45; Stop 02/25/17 at 12:46; Status Cancel Miscellaneous Information SPECIFIC LAB TO BE MELINA... ONCE ONCE .XX ; Start at 00:45; Stop 02/24/17 at 00:46; Status DC Vancomycin HCl 1250 mg/Sodium Chloride 262.5 ml @ 250 mls/hr Q12H IV Last administered on 02/26/17 20:49; Start 02/24/17 at 21:00; Stop 02/27/17 at 22:03; Status DC Miscellaneous Information SPECIFIC LAB TO BE DRAWN:VANCOMYCIN TROUGH DATE TO... ONCE ONCE .XX ; Start 02/26/17 at 08:45; Stop 02/26/17 at 08:46; Status DC Amlodipine Besylate (Norvasc) 10 mg DAILY PO Last administered on 03/10/17 09: 26; Start 02/26/17 at 09:00 Amlodipine Besylate (Norvasc) 5 mg ONCE ONCE PO Last administered on 02/25/17 12:28; Start 02/25/17 at 11:15; Stop 02/25/17 at 11:18; Status DC Clonidine (Catapres) 0.1 mg Q12HR PO Last administered on 03/02/17 20:08; Start 02/26/17 at 11:00; Stop 03/03/17 at 08:49; Status DC Miscellaneous Information SPECIFIC LAB TO BE DRAWN:VANCOMYCIN TROUGH DATE TO... ONCE ONCE .XX Last administered on 02/26/17 20:45; Start 02/26/17 at 20:45; Stop 02/26/17 at 20:46; Status DC Miscellaneous Information SPECIFIC LAB TO BE MELINA... ONCE ONCE .XX Last administered on 02/27/17 20:45; Start 02/27/17 at 20:45; Stop 02/27/17 at 20:46; Status DC Vancomycin HCl 1000 mg/Sodium Chloride 250 ml @ 250 mls/hr Q12H IV Last administered on 03/06/17 10:10; Start 02/27/17 at 22:00; Stop 03/06/17 at 10:57 ; Status DC Miscellaneous Information SPECIFIC LAB TO BE MELINA... ONCE ONCE .XX Last administered on 03/01/17 09:44; Start 03/01/17 at 09:45; Stop 03/01/17 at 09:46 ; Status DC Sodium Chloride (Sodium Chloride) 1 gm DAILY PO Last administered on 03/06/17 10:08; Start 03/02/17 at 09:00; Status Future Hold Cefazolin Sodium/ Dextrose 50 ml @ 150 mls/hr Q8H IV Last administered on 03/10 09:25; Start 03/02/17 at 10:00 Clonidine (Catapres) 0.2 mg Q12HR PO Last administered on 03/10/17 09:25; Start 03/03/17 at 09:00 Miscellaneous Information SPECIFIC LAB TO BE MELINA... ONCE ONCE .XX Last administered on 03/06/17 10:21; Start 03/06/17 at 09:45; Stop 03/06/17 at 09:46 ; Status DC Vancomycin HCl 1250 mg/Sodium Chloride 262.5 ml @ 250 mls/hr Q12H IV Last administered on 03/08/17 12:06; Start 03/06/17 at 22:00; Stop 03/08/17 at 13:20 ; Status DC Miscellaneous Information SPECIFIC LAB TO BE MELINA... ONCE ONCE .XX Last administered on 03/08/17 11:30; Start 03/08/17 at 09:45; Stop 03/08/17 at 09:46 ; Status DC Hydralazine HCl (Apresoline) 10 mg Q6HR PO Last administered on 03/10/17 12:35 ; Start 03/06/17 at 18:00 Ibuprofen (Motrin) 600 mg Q8HR PO ; Start 03/06/17 at 16:00; Stop 03/06/17 at 16 :19; Status DC Ibuprofen (Motrin) 800 mg Q8HR PO Last administered on 03/10/17 05:52; Start 03/06/17 at 22:00 Hydromorphone HCl (Dilaudid) 2 mg Q8H PRN PO PAIN 6-10 Last administered on t 02:00; Start 03/07/17 at 18:30 Loperamide HCl (Imodium) 2 mg Q4H PRN PO DIARRHEA; Start 03/07/17 at 18:30 Clonidine (Catapres) 0.1 mg Q6H PRN PO SBP>160, DBP>90; Start 03/07/17 at 18:30 Vancomycin HCl 1000 mg/Sodium Chloride 250 ml @ 250 mls/hr Q12H IV Last administered on 03/08/17t 23:41; Start 03/08/17 at 23:00; Stop 03/09/17 at 06:36 ; Status DC Miscellaneous Information SPECIFIC LAB TO BE DRAWN:VANCOMY... ONCE ONCE .XX ; Start 03/10/17 at 10:45; Stop 03/10/17 at 10:46; Status Cancel Urinary Catheter: No Vascular Central Line Catheter: No A/P Problem List: (1) Cellulitis of left arm ICD Code: L03.114 - Cellulitis of left upper limb (2) Abscess of left arm ICD Code: L02.414 - Cutaneous abscess of left upper limb (3) IV drug user ICD Code: F19.90 - Other psychoactive substance use, unspecified, uncomplicated Status: Acute (4) IV drug abuse ICD Code: F19.10 - Other psychoactive substance abuse, uncomplicated Status: Acute (5) Cellulitis ICD Code: L03.90 - Cellulitis, unspecified Status: Acute (6) Fever ICD Code: R50.9 - Fever, unspecified Status: Resolved (7) Skin abscess ICD Code: L02.91 - Cutaneous abscess, unspecified Status: Acute (8) HTN (hypertension) ICD Code: I10 - Essential (primary) hypertension Status: Acute (9) Renal insufficiency ICD Code: N28.9 - Disorder of kidney and ureter, unspecified (10) Hypokalemia ICD Code: E87.6 - Hypokalemia Assessment and Plan 47-year-old IV drug user who presented with left arm cellulitis-history of crushing up pills shooting them up Sepsis 2/2 left arm cellulitis -Resolved Mitral valve endocarditis Left arm cellulitis/abscess Currently on vancomycin 6 weeks per infectious disease specialist; strep susceptibility available. Appreciate input from hand surgery who signed off, status post I&D Monitor weekly labs including CBC, CMP, CRP every Thursday. has been afebrile for the past 72 hrs. repeat u/a and chest x-ray neg. Repeat blood cx thus far neg. Pt did have right thromboplebitis which could potentially be the source. Continue to elevate both arms, compresses to the right arm, motrin. Hyponatremia mild. HL-IV. monitor. IV drug user with Dilaudid, Roxicodone, oxycodone Patient counseled against. Do not recommend increasing dose of po pain meds. consider starting to wean them. We'll crush all meds in place in applesauce now due to suspect and suspicion of pocketing drugs and attempting to shoot them up Benign hypertension better controlled w hydralazine po. on clonidine and norvasc Renal insufficiency Resolved with IV fluid hydration Hypokalemia Resolved DVT prophylaxis -Lovenox renally dosed. Discharge Planning IVDU on IV abx until completion. When bed available in PO, can be transferred once repeat blood cx finalized CONTINUE CURRENT PAIN MEDS NO CALLS FOR ADJUSTMENT OF PAIN MEDS ID WORKING ON A PLAN FOR DC ON OUTPT ANTIBIOTICS NOT CLEARED FOR DC Problem Qualifiers (1) Cellulitis: Qualified Codes: L03.114 - Cellulitis of left upper limb (2) Fever: Qualified Codes: R50.9 - Fever, unspecified Cleveland Gonzalez DO Mar 10, 2017 12:50
[2017-03-10 16:02] VITALS: BP 133/76; PULSE 63; RESP 18; TEMP 98; O2SAT 95
--- NOTE | 2017-03-10 16:08 | HHI.IDPN ---
Subjective Subjective Remarks chart reviewed Spiked fever agaiin in the last 24 hrs: 101.5 Doing OK Co R forearm tender cords Sepsis workup was initiated. Blood cultures are negative. Doppler shows a complex 5.6 cm fluid collection possible abscess. 2-D echo positive for mitral valve vegetation. Apparently pt he attempted to do drugs IV in hospital. Now being closely watched and pain meds administration being monitored. Antibiotics cefazoline Lines LIne site ok Past Medical History Hypertension: Untreated. 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 Vital Signs Date Time Temp Pulse Resp B/P (MAP) Pulse Ox O2 Delivery O2 Flow Rate FiO2 03/10/17 12:22 97.9 49 18 118/65 (82) 96 03/10/17 09:31 Room Air 03/10/17 08:32 98.0 50 18 146/88 (107) 98 03/10/17 04:00 97.7 54 16 121/69 (86) 98 03/10/17 04:00 Room Air 03/10/17 00:00 Room Air 03/10/17 00:00 98.5 57 16 125/73 (90) 98 03/09/17 20:00 Room Air 03/09/17 20:00 101.5 86 18 170/90 (116) 98 Imaging Last Impressions Upper Extremity Ultrasound 03/05/17 0000 Signed Impressions: Service Date/Time: February 21:22 - CONCLUSION: Superficial thrombus of the right upper extremity involving the cephalic vein. Otherwise negative. Shan Coleman MD Chest X-Ray 03/05/17 0000 Signed Impressions: Service Date/Time: February 12:27 - CONCLUSION: 1. Mild cardiomegaly. 2. No acute focal pulmonary infiltrate or pulmonary vascular congestion. Giovanni Welsh MD Upper Extremity CT 02/21/17 0000 Signed Impressions: Service Date/Time: Tuesday, February 21, 2017 09:26 - CONCLUSION: 1. Cellulitis, subcutaneous edema and right antecubital region loculated fluid collection characteristic of an abscess. Jon Pratt MD Chest CT 02/21/17 0000 Signed Impressions: Service Date/Time: Tuesday, February 21, 2017 09:21 - CONCLUSION: 1. Small bilateral effusions and right lower lobe basilar airspace disease. 2. Aortic aneurysm. 3. Atherosclerosis. 4. Right arm abscess and cellulitis. Jon Pratt MD Physical Exam GENERAL:Awake and alert, ambulating in room. Just came out os shower - no dressing in his LUE and drain hanging out SKIN: Multiple track mcclain visible. HEAD: Atraumatic. Normocephalic. No temporal or scalp tenderness. EYES: Pupils equal round and reactive. Extraocular motions intact. No scleral icterus. No injection or drainage. ENT: Nose without bleeding, purulent drainage or septal hematoma. Throat without erythema, tonsillar hypertrophy or exudate. Uvula midline. Airway patent. NECK: Trachea midline. Supple, nontender, no meningeal signs. CARDIOVASCULAR: No murmur appreciated. RESPIRATORY: Breath sounds decreased bilaterally. GASTROINTESTINAL: Abdomen soft, non-tender, nondistended. MUSCULOSKELETAL: Left arm and forearm with erythema, induration noted present. has drain coing out of the surgical site. L antecubital area with healing clean incision non tender induration. No erythema, no fluctuance R forearm + tender hard cord palpable NEUROLOGICAL: Awake and alert. Grossly nonfocal. IV line sites with no evidence of infection. Assessment & Plan Remarks Assessment and Plan Sepsis present on admission, better Mitral valve endocarditis, clx negative Left Arm abscess S/P I and D, GAS Possible septic thrombophlebitis of Lt arm. IVDA Persistent intermittent fever Another febrile epsoede ? phlebitis R forearm vs transient bactremias from using IV drugs in -pt Recs will chk blood clx monitor temps cont cefaoline for GAS Will also need Clindamycin oral on discharge. Agree that pt is not a good candidate for PICC or IV line infusions in hospital. Safer to administer Dalvance once in 12 days using a fresh PIV each time. annetta Gonzalez. Roxy Cook MD Mar 10, 2017 16:08
[2017-03-10 20:00] VITALS: BP_SYST 152; BP_SYST 165; BP_DIAS 68; BP_DIAS 90; PULSE 72; PULSE 75; RESP 16; RESP 18; TEMP 97.6; TEMP 98.6; O2SAT 94; O2SAT 97
[2017-03-10] MEDS: ENOXAPARIN SODIUM 40 MG/0.4 ML SYRINGE SQ SCH (22:39)
[2017-03-11] VITALS: BP 132/81; PULSE 59; RESP 16; TEMP 98.7; O2SAT 95
[2017-03-11] MEDS: hydrALAZINE HCL 10 MG TAB PO SCH ×4 (00:24→18:03)
[2017-03-11] MEDS: ceFAZolin 2 GM PREMIX 50 ML IV SCH ×3 (02:19→18:04)
[2017-03-11] MEDS: HYDROmorphone HCL 2 MG TAB PO PRN ×3 (02:19→18:03)
[2017-03-11 05:45] VITALS: BP 165/92; PULSE 82; RESP 18; TEMP 102.8; O2SAT 96
[2017-03-11] MEDS: IBUPROFEN 800 MG TAB PO SCH ×3 (06:00→21:58)
[2017-03-11 08:00] VITALS: BP 144/81; PULSE 75; RESP 20; TEMP 98.6; O2SAT 95
[2017-03-11] MEDS: DOCUSATE SODIUM 50 MG/SENNA 8.6 MG TAB PO SCH ×2 (09:00→21:00)
[2017-03-11] MEDS: PANTOPRAZOLE SOD 40 MG DELAYED RELEASE TAB PO SCH (09:48)
[2017-03-11] MEDS: cloNIDine HCL 0.2 MG TAB PO SCH ×2 (09:48→21:58)
[2017-03-11] MEDS: SODIUM CHLORIDE 0.9% FLUSH 10 ML FLUSH IV FLUSH SCH ×2 (09:54→21:58)
[2017-03-11] MEDS: THIAMINE HCL 100 MG TAB PO SCH (10:23)
--- NOTE | 2017-03-11 11:43 | HHI.PR ---
Subjective Remarks Some suspicion yesterday patient attempting to shoot up his IV pain medications after crushing it. Therefore will now make sure all his pain medications are crushed and placed in applesauce No new complaints today Appears comfortable Continue current antibiotic regimen 03-09 NO NEW COMPLAINTS NOT HAPPY WITH HIS NEW PAIN MEDS DW RN AND PT 03-10 AWAIT ID TO DETERMINE PLAN AND ACCEPTANCE WITH CASE MANAGEMENT NO NEW COMPLAINTS DW RN AND PT 03-11 NO NEW COMPLAINTS CONTINUE ANTIBIOTICS DW RN AND PT Objective Vitals Vital Signs Date Time Temp Pulse Resp B/P (MAP) Pulse Ox O2 Delivery O2 Flow Rate FiO2 03/11/17 08:00 98.6 75 20 144/81 (102) 95 03/11/17 05:45 102.8 82 18 165/92 (116) 96 03/11/17 05:45 Room Air 03/11/17 00:00 Room Air 03/11/17 00:00 98.7 59 16 132/81 (98) 95 03/10/17 20:00 97.6 72 16 152/90 (110) 97 03/10/17 20:00 Room Air 03/10/17 16:02 98.0 63 18 133/76 (95) 95 03/10/17 12:22 97.9 49 18 118/65 (82) 96 I/O 03/10/17 03/10/17 03/10/17 03/11/17 03/11/17 03/11/17 07:00 15:00 23:00 07:00 15:00 23:00 Intake Total 720 ml 532 ml Output Total 1150 ml Balance 720 ml -618 ml Intake Oral 720 ml 480 ml IV Total 52 ml Output Urine Total 1150 ml # Voids 2 3 # Bowel Movements 0 2 Result Diagram: 03/08/17 1147 03/08/17 1147 Other Results Laboratory Tests Test 03/08/17 11:47 White Blood Count 6.5 TH/MM3 Red Blood Count 3.97 MIL/MM3 Hemoglobin 11.8 GM/DL Hematocrit 34.8 % Mean Corpuscular Volume 87.7 FL Mean Corpuscular Hemoglobin 29.6 PG Mean Corpuscular Hemoglobin Concent 33.8 % Red Cell Distribution Width 14.6 % Platelet Count 185 TH/MM3 Mean Platelet Volume 9.2 FL Neutrophils (%) (Auto) 67.0 % Lymphocytes (%) (Auto) 17.2 % Monocytes (%) (Auto) 13.2 % Eosinophils (%) (Auto) 1.7 % Basophils (%) (Auto) 0.9 % Neutrophils # (Auto) 4.4 TH/MM3 Lymphocytes # (Auto) 1.1 TH/MM3 Monocytes # (Auto) 0.9 TH/MM3 Eosinophils # (Auto) 0.1 TH/MM3 Basophils # (Auto) 0.1 TH/MM3 CBC Comment DIFF FINAL Differential Comment Blood Urea Nitrogen 19 MG/DL Creatinine 1.13 MG/DL Random Glucose 127 MG/DL Calcium Level 9.3 MG/DL Sodium Level 137 MEQ/L Potassium Level 3.9 MEQ/L Chloride Level 104 MEQ/L Carbon Dioxide Level 25.9 MEQ/L Anion Gap 7 MEQ/L Estimat Glomerular Filtration Rate 69 ML/MIN Vancomycin Level Trough 19.8 MCG/ML Imaging Last Impressions Upper Extremity Ultrasound 03/05/17 0000 Signed Impressions: Service Date/Time: February 21:22 - CONCLUSION: Superficial thrombus of the right upper extremity involving the cephalic vein. Otherwise negative. Shan Coleman MD Chest X-Ray 03/05/17 0000 Signed Impressions: Service Date/Time: February 12:27 - CONCLUSION: 1. Mild cardiomegaly. 2. No acute focal pulmonary infiltrate or pulmonary vascular congestion. Giovanni Welsh MD Upper Extremity CT 02/21/17 0000 Signed Impressions: Service Date/Time: Tuesday, February 21, 2017 09:26 - CONCLUSION: 1. Cellulitis, subcutaneous edema and right antecubital region loculated fluid collection characteristic of an abscess. Jon Pratt MD Chest CT 02/21/17 0000 Signed Impressions: Service Date/Time: Tuesday, February 21, 2017 09:21 - CONCLUSION: 1. Small bilateral effusions and right lower lobe basilar airspace disease. 2. Aortic aneurysm. 3. Atherosclerosis. 4. Right arm abscess and cellulitis. Jon Pratt MD Objective Remarks GENERAL: This is a well-nourished, well-developed patient, in no distress, patient appears to be quite comfortable SKIN: Left forearm is dressed. No obvious cellulitis noted now other than that skin is warm and dry HEAD: Atraumatic. Normocephalic. No temporal or scalp tenderness. EYES: Pupils equal round and reactive. Extraocular motions intact. No scleral icterus. No injection or drainage. ENT: Nose without bleeding, purulent drainage or septal hematoma. Throat without erythema, tonsillar hypertrophy or exudate. Uvula midline. Airway patent. Tongue is midline NECK: Trachea midline. No JVD or lymphadenopathy. Supple, nontender, no meningeal signs. CARDIOVASCULAR: Regular rate and rhythm without murmurs, gallops, or rubs. S1 and S2 no S3 or S4 no heave or thrill or rub or gallop RESPIRATORY: Clear to auscultation. Breath sounds equal bilaterally. No wheezes , rales, or rhonchi. GASTROINTESTINAL: Abdomen soft, non-tender, nondistended. No hepato-splenomegaly , or palpable masses. No guarding. MUSCULOSKELETAL: Extremities without clubbing, cyanosis, left upper extremity is dressed no joint tenderness, effusion, or edema noted. No calf tenderness. Negative Homans sign bilaterally. NEUROLOGICAL: Lethargic AAO 3. Cranial nerves II through XII intact. Motor and sensory grossly within normal limits. Insight and judgment are limited mood and behavior are good Procedures Left forearm incision and drainage 02/21/17 Medications and IVs Current Medications Acetaminophen (Tylenol) 650 mg ONCE ONCE PO Last administered on 02/19/17 17: 19; Start 02/19/17 at 17:00; Stop 02/19/17 at 17:04; Status DC Piperacillin Sod/ Tazobactam Sod 100 ml @ 200 mls/hr ONCE STAT IV Last administered on 02/19/17 17:19; Start 02/19/17 at 17:00; Stop 02/19/17 at 17:29 ; Status DC Vancomycin HCl 1000 mg/Sodium Chloride 250 ml @ 250 mls/hr ONCE STAT IV Last administered on 02/19/17 17:19; Start 02/19/17 at 17:00; Stop 02/19/17 at 17:59 ; Status DC Sodium Chloride 1,000 ml @ 1,000 mls/hr Q1H ONCE IV Last administered on 17:15; Start 02/19/17 at 17:00; Stop 02/19/17 at 17:59; Status DC Sodium Chloride 1,000 ml @ 1,000 mls/hr Q1H ONCE IV Last administered on 17:16; Start 02/19/17 at 17:00; Stop 02/19/17 at 17:59; Status DC Sodium Chloride 400 ml @ 1,000 mls/hr Q24M ONCE IV Last administered on 17:16; Start 02/19/17 at 17:00; Stop 02/19/17 at 17:23; Status DC Sodium Chloride 1,000 ml @ 150 mls/hr Q6H40M IV Last administered on 07:02; Start 02/19/17 at 18:31; Stop 03/06/17 at 15:52; Status DC Sodium Chloride (NS Flush) 2 ml UNSCH PRN IV FLUSH FLUSH AFTER USING IV ACCESS ; Start 02/19/17 at 18:45; Stop 02/20/17 at 13:23; Status DC Sodium Chloride (NS Flush) 2 ml BID IV FLUSH ; Start 02/19/17 at 21:00; Stop 02/20/17 at 13:23; Status DC Acetaminophen (Tylenol) 650 mg Q4H PRN PO TEMP > 100.4; Start 02/19/17 at 18:45 ; Stop 02/20/17 at 09:48; Status DC Ondansetron HCl (Zofran Inj) 4 mg Q6H PRN IVP NAUSEA OR VOMITING; Start at 18:45 Enoxaparin Sodium (Lovenox Inj) 40 mg Q24H SQ ; Start 02/19/17 at 18:45; Stop at 18:49; Status DC Naloxone HCl (Narcan Inj) 0.4 mg UNSCH PRN IV SEE LABEL COMMENTS; Start at 18:45 Senna/Docusate Sodium (Pearl-Colace) 1 tab BID PO Last administered on 08:08; Start 02/19/17 at 21:00 Magnesium Hydroxide (Milk Of Magnesia Liq) 30 ml Q12H PRN PO MILD - MODERATE CONSTIPATION; Start 02/19/17 at 18:45 Sennosides (Senokot) 17.2 mg Q12H PRN PO MODERATE - SEVERE CONSTIPATION; Start 02/19/17 at 18:45 Bisacodyl (Dulcolax Supp) 10 mg DAILY PRN RECTAL SEVERE CONSITIPATION; Start at 18:45 Lactulose (Lactulose Liq) 30 ml DAILY PRN PO SEVERE CONSITIPATION; Start at 18:45 Pharmacy Profile Note 0 ml @ 0 mls/hr UNSCH OTHER ; Start 02/19/17 at 18:45; Stop 03/09/17 at 06:36; Status DC Piperacillin Sod/ Tazobactam Sod 50 ml @ 100 mls/hr Q6H IV Last administered on 02/23/17 11:37; Start 02/19/17 at 23:00; Stop 02/23/17 at 17:45; Status DC Vancomycin HCl 1000 mg/Sodium Chloride 250 ml @ 250 mls/hr ONCE ONCE IV Last administered on 02/20/17 01:04; Start 02/19/17 at 00:00; Stop 02/19/17 at 23:20 ; Status DC Potassium Chloride (KCl) 40 meq ONCE ONCE PO Last administered on 02/19/17 22 :55; Start 02/19/17 at 22:00; Stop 02/19/17 at 22:01; Status DC Enoxaparin Sodium (Lovenox Inj) 30 mg Q24H SQ Last administered on 02/20/17 01: 03; Start 02/19/17 at 23:00; Stop 02/20/17 at 13:48; Status DC Clonidine (Catapres) 0.1 mg Q4HR PRN PO SBP>160, DBP>90 Last administered on 05:49; Start 02/20/17 at 09:00; Stop 03/09/17 at 07:23; Status DC Tramadol HCl (Ultram) 50 mg Q6H PRN PO PAIN SCALE 6 TO 10 Last administered on 02/20/17 20:36; Start 02/20/17 at 09:00; Stop 02/21/17 at 12:39; Status DC Ibuprofen (Motrin) 800 mg Q8H PRN PO PAIN SCALE 3 TO 5 Last administered on 02/27 16:24; Start 02/20/17 at 09:00; Stop 03/06/17 at 16:28; Status DC Acetaminophen (Tylenol) 650 mg Q4H PRN PO FEVER Last administered on 03/09/17 21:32; Start 02/20/17 at 09:00 Amlodipine Besylate (Norvasc) 5 mg DAILY PO Last administered on 02/25/17 09:07 ; Start 02/21/17 at 09:00; Stop 02/25/17 at 11:15; Status DC Amlodipine Besylate (Norvasc) 5 mg ONCE ONCE PO Last administered on 02/20/17 11:15; Start 02/20/17 at 11:00; Stop 02/20/17 at 11:01; Status DC Vancomycin HCl 1200 mg/Sodium Chloride 262 ml @ 250 mls/hr Q12H IV Last administered on 02/21/17 13:06; Start 02/20/17 at 13:00; Stop 02/21/17 at 14:52; Status DC Miscellaneous Information SPECIFIC LAB TO BE MELINA... ONCE ONCE .XX Last administered on 02/21/17 12:45; Start 02/21/17 at 12:45; Stop 02/21/17 at 12:46; Status DC Sodium Chloride (NS Flush) 2 ml UNSCH PRN IV FLUSH FLUSH AFTER USING IV ACCESS Last administered on 02/22/17 21:24; Start 02/20/17 at 12:30 Sodium Chloride (NS Flush) 2 ml BID IV FLUSH Last administered on 03/11/17 09: 54; Start 02/20/17 at 21:00 Folic Acid (Folate) 1 mg DAILY PO Last administered on 02/25/17 09:07; Start at 12:30; Stop 02/25/17 at 12:29; Status DC Thiamine HCl (Vitamin B1) 100 mg DAILY PO Last administered on 03/11/17 10:23 ; Start 02/20/17 at 12:30 Multivitamins/ Minerals Therapeutic (Theragran M Tab) 1 tab DAILY PO Last administered on 02/25/17 09:07; Start 02/20/17 at 12:30; Stop 02/25/17 at 12:29; Status DC Pantoprazole Sodium (Protonix) 40 mg DAILY PO Last administered on 03/11/17 09 :48; Start 02/20/17 at 12:30 Flumazenil (Romazicon Inj) 0.2 mg Q1M PRN IV PUSH SEE LABEL COMMENTS; Start 02/20/17 at 12:30 Lorazepam (Ativan) 1 mg Q4H PRN PO CIWA 8 - 10 Last administered on 02/25/17 21 :12; Start 02/20/17 at 12:30; Stop 03/07/17 at 18:21; Status DC Lorazepam (Ativan Inj) 1 mg Q4H PRN IV PUSH CIWA 8 - 10 Last administered on 12:51; Start 02/20/17 at 12:30; Stop 03/07/17 at 18:21; Status DC Lorazepam (Ativan) 2 mg Q2H PRN PO CIWA 11-14 Last administered on 02/24/17 20: 09; Start 02/20/17 at 12:30; Stop 03/07/17 at 18:21; Status DC Lorazepam (Ativan Inj) 2 mg Q2H PRN IV PUSH CIWA 11-14 Last administered on 02/20 20:35; Start 02/20/17 at 12:30; Stop 03/07/17 at 18:21; Status DC Lorazepam (Ativan Inj) 2 mg Q1H PRN IV PUSH CIWA 15-20 Last administered on 02/21 21:33; Start 02/20/17 at 12:30; Stop 03/07/17 at 18:21; Status DC Lorazepam (Ativan Inj) 2 mg Q15M PRN IV PUSH CIWA > 20; Start 02/20/17 at 12:30 ; Stop 03/07/17 at 18:21; Status DC Haloperidol Lactate (Haldol Inj) 2 mg Q15M PRN IM SEE LABEL COMMENTS; Start 02/20/17 at 12:30 Heparin Sodium (Porcine) (Heparin Inj) 5,000 units Q8H SQ ; Start 02/20/17 at 12: 30; Status UNV Enoxaparin Sodium (Lovenox Inj) 40 mg Q24H SQ Last administered on 03/10/17 22 :39; Start 02/20/17 at 22:00 Clindamycin HCl (Cleocin) 450 mg Q6HR PO Last administered on 02/23/17 11:36; Start 02/20/17 at 18:00; Stop 02/23/17 at 17:45; Status DC Iohexol (Omnipaque 350 Inj) 100 ml STK-MED ONCE IVCONTRAST Last administered on 02/21/17 09:55; Start 02/21/17 at 09:55; Stop 02/21/17 at 09:56; Status DC Oxycodone/ Acetaminophen (Percocet 7.5-325 Mg) 1 tab Q4H PRN PO PAIN 6-10 Last administered on 02/22/17 13:27; Start 02/21/17 at 12:45; Stop 02/22/17 at 15:15; Status DC Potassium Chloride (KCl) 40 meq ONCE ONCE PO Last administered on 02/21/17 13: 05; Start 02/21/17 at 12:45; Stop 02/21/17 at 12:48; Status DC Vancomycin HCl 1500 mg/Sodium Chloride 515 ml @ 257.5 mls/ hr Q12H IV Last administered on 02/24/17 01:39; Start 02/22/17 at 01:00; Stop 02/24/17 at 10:26; Status DC Miscellaneous Information SPECIFIC LAB TO BE MELINA... ONCE ONCE .XX ; Start at 12:45; Stop 02/23/17 at 12:46; Status DC Lidocaine HCl (Xylocaine 2% Inj) 50 ml STK-MED ONCE .ROUTE ; Start 02/21/17 at 18 :42; Stop 02/21/17 at 18:43; Status DC Bupivacaine HCl (Marcaine Pf 0.5% Inj) 30 ml STK-MED ONCE .ROUTE ; Start at 18:42; Stop 02/21/17 at 18:43; Status DC Fentanyl Citrate (fentaNYL INJ) 100 mcg STK-MED ONCE .ROUTE ; Start 02/21/17 at 19:34; Stop 02/21/17 at 19:35; Status DC Fentanyl Citrate (fentaNYL INJ) 100 mcg STK-MED ONCE .ROUTE ; Start 02/21/17 at 19:48; Stop 02/21/17 at 19:49; Status DC Miscellaneous Information ALL NURSING DEPARTME... UNSCH PRN .XX SEE LABEL COMMENTS; Start 02/21/17 at 20:20; Stop 02/22/17 at 20:19; Status DC Hydromorphone HCl (Dilaudid) 2 mg Q4H PRN PO PAIN 6-10 Last administered on 17:29; Start 02/22/17 at 15:15; Stop 03/07/17 at 18:19; Status DC Vancomycin HCl 2000 mg/Sodium Chloride 520 ml @ 250 mls/hr Q12H IV ; Start 02/24 at 01:00; Stop 02/24/17 at 01:00; Status DC Miscellaneous Information SPECIFIC LAB TO BE MELINA... ONCE ONCE .XX ; Start at 12:45; Stop 02/25/17 at 12:46; Status Cancel Miscellaneous Information SPECIFIC LAB TO BE MELINA... ONCE ONCE .XX ; Start at 00:45; Stop 02/24/17 at 00:46; Status DC Vancomycin HCl 1250 mg/Sodium Chloride 262.5 ml @ 250 mls/hr Q12H IV Last administered on 02/26/17 20:49; Start 02/24/17 at 21:00; Stop 02/27/17 at 22:03; Status DC Miscellaneous Information SPECIFIC LAB TO BE DRAWN:VANCOMYCIN TROUGH DATE TO... ONCE ONCE .XX ; Start 02/26/17 at 08:45; Stop 02/26/17 at 08:46; Status DC Amlodipine Besylate (Norvasc) 10 mg DAILY PO Last administered on 03/11/17 09: 47; Start 02/26/17 at 09:00 Amlodipine Besylate (Norvasc) 5 mg ONCE ONCE PO Last administered on 02/25/17 12:28; Start 02/25/17 at 11:15; Stop 02/25/17 at 11:18; Status DC Clonidine (Catapres) 0.1 mg Q12HR PO Last administered on 03/02/17 20:08; Start 02/26/17 at 11:00; Stop 03/03/17 at 08:49; Status DC Miscellaneous Information SPECIFIC LAB TO BE DRAWN:VANCOMYCIN TROUGH DATE TO... ONCE ONCE .XX Last administered on 02/26/17 20:45; Start 02/26/17 at 20:45; Stop 02/26/17 at 20:46; Status DC Miscellaneous Information SPECIFIC LAB TO BE MELINA... ONCE ONCE .XX Last administered on 02/27/17 20:45; Start 02/27/17 at 20:45; Stop 02/27/17 at 20:46; Status DC Vancomycin HCl 1000 mg/Sodium Chloride 250 ml @ 250 mls/hr Q12H IV Last administered on 03/06/17 10:10; Start 02/27/17 at 22:00; Stop 03/06/17 at 10:57 ; Status DC Miscellaneous Information SPECIFIC LAB TO BE MELINA... ONCE ONCE .XX Last administered on 03/01/17 09:44; Start 03/01/17 at 09:45; Stop 03/01/17 at 09:46 ; Status DC Sodium Chloride (Sodium Chloride) 1 gm DAILY PO Last administered on 03/06/17 10:08; Start 03/02/17 at 09:00; Status Future Hold Cefazolin Sodium/ Dextrose 50 ml @ 150 mls/hr Q8H IV Last administered on 03/11 10:22; Start 03/02/17 at 10:00 Clonidine (Catapres) 0.2 mg Q12HR PO Last administered on 03/11/17 09:48; Start 03/03/17 at 09:00 Miscellaneous Information SPECIFIC LAB TO BE MELINA... ONCE ONCE .XX Last administered on 03/06/17 10:21; Start 03/06/17 at 09:45; Stop 03/06/17 at 09:46 ; Status DC Vancomycin HCl 1250 mg/Sodium Chloride 262.5 ml @ 250 mls/hr Q12H IV Last administered on 03/08/17 12:06; Start 03/06/17 at 22:00; Stop 03/08/17 at 13:20 ; Status DC Miscellaneous Information SPECIFIC LAB TO BE MELINA... ONCE ONCE .XX Last administered on 03/08/17 11:30; Start 03/08/17 at 09:45; Stop 03/08/17 at 09:46 ; Status DC Hydralazine HCl (Apresoline) 10 mg Q6HR PO Last administered on 03/11/17 06:00 ; Start 03/06/17 at 18:00 Ibuprofen (Motrin) 600 mg Q8HR PO ; Start 03/06/17 at 16:00; Stop 03/06/17 at 16 :19; Status DC Ibuprofen (Motrin) 800 mg Q8HR PO Last administered on 03/11/17 06:00; Start 03/06/17 at 22:00 Hydromorphone HCl (Dilaudid) 2 mg Q8H PRN PO PAIN 6-10 Last administered on 09:50; Start 03/07/17 at 18:30 Loperamide HCl (Imodium) 2 mg Q4H PRN PO DIARRHEA; Start 03/07/17 at 18:30 Clonidine (Catapres) 0.1 mg Q6H PRN PO SBP>160, DBP>90; Start 03/07/17 at 18:30 Vancomycin HCl 1000 mg/Sodium Chloride 250 ml @ 250 mls/hr Q12H IV Last administered on 03/08/17 23:41; Start 03/08/17 at 23:00; Stop 03/09/17 at 06:36 ; Status DC Miscellaneous Information SPECIFIC LAB TO BE DRAWN:VANCOMY... ONCE ONCE .XX ; Start 03/10/17 at 10:45; Stop 03/10/17 at 10:46; Status Cancel Urinary Catheter: No Vascular Central Line Catheter: No A/P Problem List: (1) Cellulitis of left arm ICD Code: L03.114 - Cellulitis of left upper limb (2) Abscess of left arm ICD Code: L02.414 - Cutaneous abscess of left upper limb (3) IV drug user ICD Code: F19.90 - Other psychoactive substance use, unspecified, uncomplicated Status: Acute (4) IV drug abuse ICD Code: F19.10 - Other psychoactive substance abuse, uncomplicated Status: Acute (5) Cellulitis ICD Code: L03.90 - Cellulitis, unspecified Status: Acute (6) Fever ICD Code: R50.9 - Fever, unspecified Status: Resolved (7) Skin abscess ICD Code: L02.91 - Cutaneous abscess, unspecified Status: Acute (8) HTN (hypertension) ICD Code: I10 - Essential (primary) hypertension Status: Acute (9) Renal insufficiency ICD Code: N28.9 - Disorder of kidney and ureter, unspecified (10) Hypokalemia ICD Code: E87.6 - Hypokalemia Assessment and Plan 47-year-old IV drug user who presented with left arm cellulitis-history of crushing up pills shooting them up Sepsis 2/2 left arm cellulitis -Resolved Mitral valve endocarditis Left arm cellulitis/abscess Currently on vancomycin 6 weeks per infectious disease specialist; strep susceptibility available. Appreciate input from hand surgery who signed off, status post I&D Monitor weekly labs including CBC, CMP, CRP every Thursday. has been afebrile for the past 72 hrs. repeat u/a and chest x-ray neg. Repeat blood cx thus far neg. Pt did have right thromboplebitis which could potentially be the source. Continue to elevate both arms, compresses to the right arm, motrin. Hyponatremia mild. HL-IV. monitor. IV drug user with Dilaudid, Roxicodone, oxycodone Patient counseled against. Do not recommend increasing dose of po pain meds. consider starting to wean them. We'll crush all meds in place in applesauce now due to suspect and suspicion of pocketing drugs and attempting to shoot them up Benign hypertension better controlled w hydralazine po. on clonidine and norvasc Renal insufficiency Resolved with IV fluid hydration Hypokalemia Resolved DVT prophylaxis -Lovenox renally dosed. Discharge Planning IVDU on IV abx until completion. When bed available in PO, can be transferred once repeat blood cx finalized CONTINUE CURRENT PAIN MEDS NO CALLS FOR ADJUSTMENT OF PAIN MEDS ID WORKING ON A PLAN FOR DC ON OUTPT ANTIBIOTICS NOT CLEARED FOR DC AM LABS Problem Qualifiers (1) Cellulitis: Qualified Codes: L03.114 - Cellulitis of left upper limb (2) Fever: Qualified Codes: R50.9 - Fever, unspecified Cleveland Gonzalez DO Mar 11, 2017 11:42
[2017-03-11 12:00] VITALS: BP 125/59; PULSE 67; RESP 20; TEMP 98.8; O2SAT 96
--- NOTE | 2017-03-11 14:01 | HHI.IDPN ---
Subjective Subjective Remarks chart reviewed Spiked fever agaiin in the last 24 hrs: 102.8 F RN reports late at night he was found with drug paraphrenalia. His bathroom had drug paraphrenalia Nursing have changed precaution measures. Denies any new complaints. Co R forearm tender cords Antibiotics cefazoline Lines LIne site ok Past Medical History Hypertension: Untreated. 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 Vital Signs Date Time Temp Pulse Resp B/P (MAP) Pulse Ox O2 Delivery O2 Flow Rate FiO2 03/11/17 12:00 98.8 67 20 125/59 (81) 96 03/11/17 10:50 18 03/11/17 08:00 98.6 75 20 144/81 (102) 95 03/11/17 08:00 Room Air 03/11/17 05:45 102.8 82 18 165/92 (116) 96 03/11/17 05:45 Room Air 03/11/17 00:00 Room Air 03/11/17 00:00 98.7 59 16 132/81 (98) 95 03/10/17 20:00 97.6 72 16 152/90 (110) 97 03/10/17 20:00 Room Air 03/10/17 16:02 98.0 63 18 133/76 (95) 95 . Microbiology Date/Time Source Procedure Growth Status 03/10/17 20:12 Blood Peripheral Aerobic Blood Culture - Preliminary NO GROWTH IN 1 DAY Resulted 03/10/17 20:12 Blood Peripheral Anaerobic Blood Culture - Preliminary NO GROWTH IN 1 DAY Resulted 03/10/17 20:06 Blood Peripheral Aerobic Blood Culture - Preliminary NO GROWTH IN 1 DAY Resulted 03/10/17 20:06 Blood Peripheral Anaerobic Blood Culture - Preliminary NO GROWTH IN 1 DAY Resulted Imaging Last Impressions Upper Extremity Ultrasound 03/05/17 0000 Signed Impressions: Service Date/Time: February 21:22 - CONCLUSION: Superficial thrombus of the right upper extremity involving the cephalic vein. Otherwise negative. Shan Coleman MD Chest X-Ray 03/05/17 0000 Signed Impressions: Service Date/Time: February 12:27 - CONCLUSION: 1. Mild cardiomegaly. 2. No acute focal pulmonary infiltrate or pulmonary vascular congestion. Giovanni Welsh MD Upper Extremity CT 02/21/17 0000 Signed Impressions: Service Date/Time: Tuesday, February 21, 2017 09:26 - CONCLUSION: 1. Cellulitis, subcutaneous edema and right antecubital region loculated fluid collection characteristic of an abscess. Jon Pratt MD Chest CT 02/21/17 0000 Signed Impressions: Service Date/Time: Tuesday, February 21, 2017 09:21 - CONCLUSION: 1. Small bilateral effusions and right lower lobe basilar airspace disease. 2. Aortic aneurysm. 3. Atherosclerosis. 4. Right arm abscess and cellulitis. Jon Pratt MD Physical Exam GENERAL:Awake and alert, ambulating in room. Just came out os shower - no dressing in his LUE and drain hanging out SKIN: Multiple track mcclain visible. HEAD: Atraumatic. Normocephalic. No temporal or scalp tenderness. EYES: Pupils equal round and reactive. Extraocular motions intact. No scleral icterus. No injection or drainage. ENT: Nose without bleeding, purulent drainage or septal hematoma. Throat without erythema, tonsillar hypertrophy or exudate. Uvula midline. Airway patent. NECK: Trachea midline. Supple, nontender, no meningeal signs. CARDIOVASCULAR: No murmur appreciated. RESPIRATORY: Breath sounds decreased bilaterally. GASTROINTESTINAL: Abdomen soft, non-tender, nondistended. MUSCULOSKELETAL: Left arm and forearm with erythema, induration noted present. has drain coing out of the surgical site. L antecubital area with healing clean incision non tender induration. No erythema, no fluctuance R forearm + tender hard cord palpable, no drainable focus of infection NEUROLOGICAL: Awake and alert. Grossly nonfocal. IV line sites with no evidence of infection. Assessment & Plan Remarks Assessment and Plan Sepsis present on admission, better Mitral valve endocarditis, clx negative Left Arm abscess S/P I and D, GAS Possible septic thrombophlebitis of Lt arm. IVDA Persistent intermittent fever Another febrile epsoede ? phlebitis R forearm vs transient bacteremia from using IV drugs in -pt Recs will chk blood clx monitor temps cont cefaoline for GAS If blood cultures negative at 72 hours will discharge on Dalvance infusion as outpatient. Will also need Clindamycin oral on discharge. Pt is not a good candidate for PICC or IV line infusions in hospital. Safer to administer Dalvance once in 12 days using a fresh PIV each time. annetta Gonzalez. Cindy Michel MD Mar 11, 2017 14:01
[2017-03-11 16:00] VITALS: BP 118/75; PULSE 66; RESP 20; TEMP 99.4; O2SAT 97
[2017-03-11 20:00] VITALS: BP 116/82; PULSE 63; RESP 18; TEMP 98.6; O2SAT 92
[2017-03-11] MEDS: ENOXAPARIN SODIUM 40 MG/0.4 ML SYRINGE SQ SCH (21:58)
[2017-03-12] VITALS: BP 123/74; PULSE 82; RESP 20; TEMP 98.3; O2SAT 97
[2017-03-12] MEDS: ceFAZolin 2 GM PREMIX 50 ML IV SCH ×3 (02:00→17:52)
[2017-03-12] MEDS: HYDROmorphone HCL 2 MG TAB PO PRN ×3 (02:20→17:51)
[2017-03-12 04:00] VITALS: BP 121/70; PULSE 48; RESP 20; TEMP 98.4; O2SAT 98
[2017-03-12] MEDS: hydrALAZINE HCL 10 MG TAB PO SCH ×4 (05:55→17:51)
[2017-03-12] MEDS: IBUPROFEN 800 MG TAB PO SCH ×3 (05:55→20:36)
[2017-03-12 08:00] VITALS: BP 154/79; PULSE 50; RESP 18; TEMP 97.9; O2SAT 98
[2017-03-12] MEDS: SODIUM CHLORIDE 0.9% FLUSH 10 ML FLUSH IV FLUSH SCH ×2 (08:35→20:36)
[2017-03-12] MEDS: cloNIDine HCL 0.2 MG TAB PO SCH ×2 (08:35→20:36)
[2017-03-12] MEDS: PANTOPRAZOLE SOD 40 MG DELAYED RELEASE TAB PO SCH (08:35)
[2017-03-12] MEDS: THIAMINE HCL 100 MG TAB PO SCH (08:35)
[2017-03-12] MEDS: DOCUSATE SODIUM 50 MG/SENNA 8.6 MG TAB PO SCH ×2 (08:35→20:31)
[2017-03-12 08:41] LABS: HEMATOCRIT 36.3 % (39.0-51.0); MEAN CELL VOLUME 87.9 FL (80.0-100.0); MEAN CORPUSCULAR HEMOGLOBIN 29.7 PG (27.0-34.0); MEAN CORPUSCULAR HGB CONC 33.8 % (32.0-36.0); PLATELET COUNT 178 TH/MM3 (150-450); RED BLOOD COUNT 4.13 MIL/MM3 (4.50-5.90); RED CELL DISTRIBUTION WIDTH 14.7 % (11.6-17.2); WHITE BLOOD COUNT 8.7 TH/MM3 (4.0-11.0)
[2017-03-12 08:51] LABS: HEMO FLAGS AUTO DIFF
--- NOTE | 2017-03-12 08:53 | HHI.PR ---
Subjective Remarks Follow up endocarditis. Patient laying in bed watching TV. No new complaints. Denies any chest pain, SOB, or pain. Objective Vitals Vital Signs Date Time Temp Pulse Resp B/P (MAP) Pulse Ox O2 Delivery O2 Flow Rate FiO2 03/12/17 04:00 98.4 48 20 121/70 (87) 98 03/12/17 00:00 98.3 82 20 123/74 (90) 97 03/11/17 20:00 98.6 63 18 116/82 (93) 92 03/11/17 16:00 99.4 66 20 118/75 (89) 97 03/11/17 15:24 18 03/11/17 12:00 98.8 67 20 125/59 (81) 96 03/11/17 10:50 18 I/O 03/11/17 03/11/17 03/11/17 03/12/17 03/12/17 03/12/17 07:00 15:00 23:00 07:00 15:00 23:00 Intake Total 532 ml 1400 ml 480 ml Output Total 1150 ml 1275 ml 700 ml Balance -618 ml 125 ml -220 ml Intake Oral 480 ml 1400 ml 480 ml IV Total 52 ml Output Urine Total 1150 ml 1275 ml 700 ml # Bowel Movements 2 1 2 Result Diagram: 03/08/17 1147 03/08/17 1147 Other Results GENERAL: Well nourished in NAD SKIN: Warm and dry. Right forearm tender due to thrombophlebitis EYES: Pupils equal and round. ENT: No nasal bleeding or discharge. Mucous membranes pink and moist. NECK: Trachea midline. No JVD. CARDIOVASCULAR: Regular rate and rhythm. RESPIRATORY: No accessory muscle use. Clear to auscultation. Breath sounds equal bilaterally. GASTROINTESTINAL: Abdomen soft, non-tender, nondistended. Bsx4 MUSCULOSKELETAL: Extremities without clubbing, cyanosis, or edema. No obvious deformities. NEUROLOGICAL: Awake and alert. Motor grossly within normal limits. Normal speech. PSYCHIATRIC: Appropriate mood and affect; insight and judgment normal. Imaging Last Impressions Upper Extremity Ultrasound 03/05/17 0000 Signed Impressions: Service Date/Time: February 21:22 - CONCLUSION: Superficial thrombus of the right upper extremity involving the cephalic vein. Otherwise negative. Shan Coleman MD Chest X-Ray 03/05/17 0000 Signed Impressions: Service Date/Time: February 12:27 - CONCLUSION: 1. Mild cardiomegaly. 2. No acute focal pulmonary infiltrate or pulmonary vascular congestion. Giovanni Welsh MD Upper Extremity CT 02/21/17 0000 Signed Impressions: Service Date/Time: Tuesday, February 21, 2017 09:26 - CONCLUSION: 1. Cellulitis, subcutaneous edema and right antecubital region loculated fluid collection characteristic of an abscess. Jon Pratt MD Chest CT 02/21/17 0000 Signed Impressions: Service Date/Time: Tuesday, February 21, 2017 09:21 - CONCLUSION: 1. Small bilateral effusions and right lower lobe basilar airspace disease. 2. Aortic aneurysm. 3. Atherosclerosis. 4. Right arm abscess and cellulitis. Jon Pratt MD Procedures Left forearm incision and drainage 02/21/17 Medications and IVs Current Medications Medications (Trade) Dose Ordered Sig/Brennon Route Start Time Stop Time Status Last Admin (Zofran Inj) 4 mg Q6H PRN IVP 02/19/17 18:45 (Narcan Inj) 0.4 mg UNSCH PRN IV 02/19/17 18:45 (Pearl-Colace) 1 tab BID PO 02/19/17 21:00 03/07/17 08:08 (Milk Of Magnesia Liq) 30 ml Q12H PRN PO 02/19/17 18:45 (Senokot) 17.2 mg Q12H PRN PO 02/19/17 18:45 (Dulcolax Supp) 10 mg DAILY PRN RECTAL 02/19/17 18:45 (Lactulose Liq) 30 ml DAILY PRN PO 02/19/17 18:45 (Tylenol) 650 mg Q4H PRN PO 02/20/17 09:00 03/09/17 21:32 (NS Flush) 2 ml UNSCH PRN IV FLUSH 02/20/17 12:30 02/22/17 21:24 (NS Flush) 2 ml BID IV FLUSH 02/20/17 21:00 03/12/17 08:35 (Vitamin B1) 100 mg DAILY PO 02/20/17 12:30 03/12/17 08:35 (Protonix) 40 mg DAILY PO 02/20/17 12:30 03/12/17 08:35 (Romazicon Inj) 0.2 mg Q1M PRN IV PUSH 02/20/17 12:30 (Haldol Inj) 2 mg Q15M PRN IM 02/20/17 12:30 (Lovenox Inj) 40 mg Q24H SQ 02/20/17 22:00 03/11/17 21:58 (Norvasc) 10 mg DAILY PO 02/26/17 09:00 03/12/17 08:35 (Sodium Chloride) 1 gm DAILY PO 03/02/17 09:00 Future Hold 03/06/17 10:08 Cefazolin Sodium/ Dextrose 50 ml @ 150 mls/hr Q8H IV 03/02/17 10:00 03/12/17 02:00 (Catapres) 0.2 mg Q12HR PO 03/03/17 09:00 03/12/17 08:35 (Apresoline) 10 mg Q6HR PO 03/06/17 18:00 03/12/17 05:55 (Motrin) 800 mg Q8HR PO 03/06/17 22:00 03/12/17 05:55 (Dilaudid) 2 mg Q8H PRN PO 03/07/17 18:30 03/12/17 02:20 (Imodium) 2 mg Q4H PRN PO 03/07/17 18:30 (Catapres) 0.1 mg Q6H PRN PO 03/07/17 18:30 Urinary Catheter: No Vascular Central Line Catheter: Yes Line: PICC Side: Right A/P Problem List: (1) Cellulitis of left arm ICD Code: L03.114 - Cellulitis of left upper limb (2) Abscess of left arm ICD Code: L02.414 - Cutaneous abscess of left upper limb (3) IV drug user ICD Code: F19.90 - Other psychoactive substance use, unspecified, uncomplicated Status: Acute (4) IV drug abuse ICD Code: F19.10 - Other psychoactive substance abuse, uncomplicated Status: Acute (5) Cellulitis ICD Code: L03.90 - Cellulitis, unspecified Status: Acute (6) Fever ICD Code: R50.9 - Fever, unspecified Status: Resolved (7) Skin abscess ICD Code: L02.91 - Cutaneous abscess, unspecified Status: Acute (8) HTN (hypertension) ICD Code: I10 - Essential (primary) hypertension Status: Acute (9) Renal insufficiency ICD Code: N28.9 - Disorder of kidney and ureter, unspecified (10) Hypokalemia ICD Code: E87.6 - Hypokalemia Assessment and Plan 47-year-old IV drug user who presented with left arm cellulitis-history of crushing up pills shooting them up Sepsis 2/2 left arm cellulitis, Resolved Mitral valve endocarditis Left arm cellulitis/abscess Currently on vancomycin 6 weeks per infectious disease specialist; strep susceptibility available. Per ID If blood cultures are negative for 72 hours, possible DC on Dalvance at infusion clinic. Repeat blood cx thus far neg. Hand surgery has signed off, status post I&D Monitor weekly labs including CBC, CMP, CRP every Thursday. Pt did have right thromboplebitis which could potentially be the source. Continue to elevate both arms, compresses to the right arm, Motrin. Hyponatremia, mild, resolved HL-IV. monitor. IV drug user with Dilaudid, Roxicodone, oxycodone Patient counseled against. Do not recommend increasing dose of po pain meds. consider starting to wean them. We'll crush all meds in place in applesauce now due to suspect and suspicion of pocketing drugs and attempting to shoot them up NO CALLS FOR ADJUSTMENT OF PAIN MEDS Benign hypertension, resolved Cont hydralazine po and norvasc, clonidine prn Renal insufficiency, Resolved with IV fluid hydration Hypokalemia, Resolved DVT prophylaxis -Lovenox renally dosed Discharge Planning IVDU on IV abx until completion. When bed available in PO, can be transferred once repeat blood cx finalized Problem Qualifiers (1) Cellulitis: Qualified Codes: L03.114 - Cellulitis of left upper limb (2) Fever: Qualified Codes: R50.9 - Fever, unspecified Celena Mills Mar 12, 2017 08:53
[2017-03-12 09:08] LABS: AST (GOT) 29 U/L (15-37); BICARBONATE 23.4 MEQ/L (21.0-32.0); BLOOD UREA NITROGEN 20 MG/DL (7-18); GLOMERULAR FILTRATION RATE 63 ML/MIN (>89); MAGNESIUM 1.9 MG/DL (1.5-2.5)
[2017-03-12 09:12] LABS: ALKALINE PHOSPHATASE 72 U/L (45-117); ALT (GPT) 21 U/L (12-78); ANION GAP 10 MEQ/L (5-15); CHLORIDE 109 MEQ/L (98-107); POTASSIUM 4.1 MEQ/L (3.5-5.1); SODIUM (NA) 142 MEQ/L (136-145); TOTAL BILIRUBIN ADULT 0.3 MG/DL (0.2-1.0)
[2017-03-12 09:28] LABS: BANDS 3 % (0-6); BASOPHILS 1 % (0-2); EOSINOPHILS 6 % (0-4); METAMYELOCYTES 1 % (0-1); NEUTROPHIL # MANUAL DIFF 4.7 TH/MM3 (1.8-7.7); POLYS (SEG NEUTROPHILS) 50 % (16-70); WBC DIFF SAMPLE 100
[2017-03-12 09:30] LABS: PLATELET ESTIMATE SMEAR NORMAL (NORMAL); PLATELET MORPHOLOGY NORMAL (NORMAL); SCAN/DIFF FINAL DIFF MANUAL
[2017-03-12 12:00] VITALS: BP 150/70; PULSE 54; RESP 18; TEMP 97.9; O2SAT 96
[2017-03-12 16:00] VITALS: BP 148/68; PULSE 60; RESP 18; TEMP 97; O2SAT 97
[2017-03-12] MEDS: ENOXAPARIN SODIUM 40 MG/0.4 ML SYRINGE SQ SCH (20:37)
[2017-03-13] VITALS: BP 124/76; PULSE 78; RESP 20; TEMP 98.9; O2SAT 96
[2017-03-13] MEDS: HYDROmorphone HCL 2 MG TAB PO PRN ×2 (01:56→17:40)
[2017-03-13] MEDS: hydrALAZINE HCL 10 MG TAB PO SCH ×4 (01:56→17:40)
[2017-03-13] MEDS: ceFAZolin 2 GM PREMIX 50 ML IV SCH ×3 (01:56→17:40)
[2017-03-13 04:00] VITALS: BP 118/62; PULSE 65; RESP 18; TEMP 98.2; O2SAT 96
[2017-03-13] MEDS: IBUPROFEN 800 MG TAB PO SCH ×2 (05:37→20:29)
[2017-03-13] MEDS: DOCUSATE SODIUM 50 MG/SENNA 8.6 MG TAB PO SCH ×2 (08:00→20:30)
[2017-03-13 08:06] VITALS: BP 140/87; PULSE 66; RESP 18; TEMP 98.1; O2SAT 98
[2017-03-13] MEDS: cloNIDine HCL 0.2 MG TAB PO SCH ×2 (08:45→20:30)
[2017-03-13] MEDS: ACETAMINOPHEN 325 MG TAB PO PRN (08:45)
[2017-03-13] MEDS: THIAMINE HCL 100 MG TAB PO SCH (08:45)
[2017-03-13] MEDS: PANTOPRAZOLE SOD 40 MG DELAYED RELEASE TAB PO SCH (08:46)
[2017-03-13] MEDS: SODIUM CHLORIDE 0.9% FLUSH 10 ML FLUSH IV FLUSH SCH ×2 (08:46→15:16)
[2017-03-13 12:20] VITALS: BP 107/72; PULSE 60; RESP 17; TEMP 97.5; O2SAT 97
--- NOTE | 2017-03-13 13:08 | HHI.PR ---
Subjective Remarks The patient was resting comfortably in bed. He had no acute complaints. He said he had some stiffness in his joints. He has been sleeping well. He has been having bowel movements. Discussed with nursing. Objective Vitals Vital Signs Date Time Temp Pulse Resp B/P (MAP) Pulse Ox O2 Delivery O2 Flow Rate FiO2 03/13/17 12:20 97.5 60 17 107/72 (84) 97 03/13/17 08:06 98.1 66 18 140/87 (104) 98 03/13/17 08:00 99 Room Air 03/13/17 04:00 Room Air 03/13/17 04:00 98.2 65 18 118/62 (80) 96 03/13/17 00:00 Room Air 03/13/17 00:00 98.9 78 20 124/76 (92) 96 03/12/17 20:00 Room Air 03/12/17 16:00 97.0 60 18 148/68 (94) 97 I/O 03/12/17 03/12/17 03/12/17 03/13/17 03/13/17 03/13/17 07:00 15:00 23:00 07:00 15:00 23:00 Intake Total 480 ml 960 ml 480 ml Output Total 700 ml 1100 ml 500 ml Balance -220 ml -140 ml -20 ml Intake Oral 480 ml 960 ml 480 ml Output Urine Total 700 ml 1100 ml 500 ml # Bowel Movements 2 1 1 Result Diagram: 03/12/17 0728 03/12/17 0728 Imaging Last Impressions Upper Extremity Ultrasound 03/05/17 0000 Signed Impressions: Service Date/Time: February 21:22 - CONCLUSION: Superficial thrombus of the right upper extremity involving the cephalic vein. Otherwise negative. Shan Coleman MD Chest X-Ray 03/05/17 0000 Signed Impressions: Service Date/Time: February 12:27 - CONCLUSION: 1. Mild cardiomegaly. 2. No acute focal pulmonary infiltrate or pulmonary vascular congestion. Giovanni Welsh MD Upper Extremity CT 02/21/17 0000 Signed Impressions: Service Date/Time: Tuesday, February 21, 2017 09:26 - CONCLUSION: 1. Cellulitis, subcutaneous edema and right antecubital region loculated fluid collection characteristic of an abscess. Jon Pratt MD Chest CT 02/21/17 0000 Signed Impressions: Service Date/Time: Tuesday, February 21, 2017 09:21 - CONCLUSION: 1. Small bilateral effusions and right lower lobe basilar airspace disease. 2. Aortic aneurysm. 3. Atherosclerosis. 4. Right arm abscess and cellulitis. Jon Pratt MD Objective Remarks GENERAL: Well nourished in NAD SKIN: Warm and dry. Right forearm tender due to thrombophlebitis EYES: Pupils equal and round. ENT: No nasal bleeding or discharge. Mucous membranes pink and moist. NECK: Trachea midline. No JVD. CARDIOVASCULAR: Regular rate and rhythm. RESPIRATORY: No accessory muscle use. Clear to auscultation. Breath sounds equal bilaterally. GASTROINTESTINAL: Abdomen soft, non-tender, nondistended. Bsx4 MUSCULOSKELETAL: Extremities without clubbing, cyanosis, or edema. No obvious deformities. NEUROLOGICAL: Awake and alert. Motor grossly within normal limits. Normal speech. PSYCHIATRIC: Appropriate mood and affect; insight and judgment normal. Procedures Left forearm incision and drainage 02/21/17 Medications and IVs Current Medications Medications (Trade) Dose Ordered Sig/Brennon Route Start Time Stop Time Status Last Admin (Zofran Inj) 4 mg Q6H PRN IVP 02/19/17 18:45 (Narcan Inj) 0.4 mg UNSCH PRN IV 02/19/17 18:45 (Pearl-Colace) 1 tab BID PO 02/19/17 21:00 03/07/17 08:08 (Milk Of Magnesia Liq) 30 ml Q12H PRN PO 02/19/17 18:45 (Senokot) 17.2 mg Q12H PRN PO 02/19/17 18:45 (Dulcolax Supp) 10 mg DAILY PRN RECTAL 02/19/17 18:45 (Lactulose Liq) 30 ml DAILY PRN PO 02/19/17 18:45 (Tylenol) 650 mg Q4H PRN PO 02/20/17 09:00 03/13/17 08:45 (NS Flush) 2 ml UNSCH PRN IV FLUSH 02/20/17 12:30 02/22/17 21:24 (NS Flush) 2 ml BID IV FLUSH 02/20/17 21:00 03/13/17 08:46 (Vitamin B1) 100 mg DAILY PO 02/20/17 12:30 03/13/17 08:45 (Protonix) 40 mg DAILY PO 02/20/17 12:30 03/13/17 08:46 (Romazicon Inj) 0.2 mg Q1M PRN IV PUSH 02/20/17 12:30 (Haldol Inj) 2 mg Q15M PRN IM 02/20/17 12:30 (Lovenox Inj) 40 mg Q24H SQ 02/20/17 22:00 03/12/17 20:37 (Norvasc) 10 mg DAILY PO 02/26/17 09:00 03/13/17 08:46 (Sodium Chloride) 1 gm DAILY PO 03/02/17 09:00 Future Hold 03/06/17 10:08 Cefazolin Sodium/ Dextrose 50 ml @ 150 mls/hr Q8H IV 03/02/17 10:00 03/13/17 08:47 (Catapres) 0.2 mg Q12HR PO 03/03/17 09:00 03/13/17 08:45 (Apresoline) 10 mg Q6HR PO 03/06/17 18:00 03/13/17 05:37 (Motrin) 800 mg Q8HR PO 03/06/17 22:00 03/13/17 05:37 (Dilaudid) 2 mg Q8H PRN PO 03/07/17 18:30 03/13/17 01:56 (Imodium) 2 mg Q4H PRN PO 03/07/17 18:30 (Catapres) 0.1 mg Q6H PRN PO 03/07/17 18:30 Line: PICC Side: Right A/P Problem List: (1) Cellulitis of left arm ICD Code: L03.114 - Cellulitis of left upper limb (2) Abscess of left arm ICD Code: L02.414 - Cutaneous abscess of left upper limb (3) IV drug user ICD Code: F19.90 - Other psychoactive substance use, unspecified, uncomplicated Status: Acute (4) IV drug abuse ICD Code: F19.10 - Other psychoactive substance abuse, uncomplicated Status: Acute (5) Cellulitis ICD Code: L03.90 - Cellulitis, unspecified Status: Acute (6) Fever ICD Code: R50.9 - Fever, unspecified Status: Resolved (7) Skin abscess ICD Code: L02.91 - Cutaneous abscess, unspecified Status: Acute (8) HTN (hypertension) ICD Code: I10 - Essential (primary) hypertension Status: Acute (9) Renal insufficiency ICD Code: N28.9 - Disorder of kidney and ureter, unspecified (10) Hypokalemia ICD Code: E87.6 - Hypokalemia Assessment and Plan 47-year-old IV drug user who presented with left arm cellulitis-history of crushing up pills shooting them up Sepsis 2/2 left arm cellulitis, Resolved Mitral valve endocarditis Left arm cellulitis/abscess Currently on vancomycin 6 weeks per infectious disease specialist; strep susceptibility available. Per ID If blood cultures are negative for 72 hours, possible DC on Dalvance at infusion clinic. Repeat blood cx thus far neg. Hand surgery has signed off, status post I&D Monitor weekly labs including CBC, CMP, CRP every Thursday. Pt did have right thromboplebitis which could potentially be the source. Continue to elevate both arms, compresses to the right arm, Motrin and Tylenol as needed. Hyponatremia, mild, resolved HL-IV. monitor. IV drug user with Dilaudid, Roxicodone, oxycodone Patient counseled against. Do not recommend increasing dose of po pain meds. consider starting to wean them. Benign hypertension, resolved Cont hydralazine po and norvasc, clonidine prn Renal insufficiency, Resolved with IV fluid hydration Hypokalemia, Resolved DVT prophylaxis -Lovenox renally dosed Discharge Planning Discharge when cleared by infectious disease Problem Qualifiers (1) Cellulitis: Qualified Codes: L03.114 - Cellulitis of left upper limb (2) Fever: Qualified Codes: R50.9 - Fever, unspecified Austen House DO Mar 13, 2017 13:08
[2017-03-13 16:06] VITALS: BP 139/81; PULSE 63; RESP 18; TEMP 98.5; O2SAT 98
[2017-03-13 20:00] VITALS: BP 134/83; PULSE 62; RESP 18; TEMP 97.4; O2SAT 100
[2017-03-13] MEDS: ENOXAPARIN SODIUM 40 MG/0.4 ML SYRINGE SQ SCH (20:30)
[2017-03-14] VITALS: BP 130/78; PULSE 56; RESP 18; TEMP 97.4; O2SAT 100
[2017-03-14] MEDS: hydrALAZINE HCL 10 MG TAB PO SCH ×4 (00:04→17:00)
[2017-03-14] MEDS: HYDROmorphone HCL 2 MG TAB PO PRN ×3 (02:09→17:01)
[2017-03-14] MEDS: ceFAZolin 2 GM PREMIX 50 ML IV SCH ×3 (02:09→17:00)
[2017-03-14 04:00] VITALS: BP 149/92; PULSE 107; RESP 21; TEMP 103; O2SAT 96
[2017-03-14] MEDS: ACETAMINOPHEN 325 MG TAB PO PRN (04:23)
[2017-03-14] MEDS: IBUPROFEN 800 MG TAB PO SCH ×3 (05:17→21:28)
[2017-03-14 08:00] VITALS: BP 122/82; PULSE 63; RESP 18; TEMP 98.5; O2SAT 96
[2017-03-14] MEDS: DOCUSATE SODIUM 50 MG/SENNA 8.6 MG TAB PO SCH ×2 (09:00→21:00)
[2017-03-14] MEDS: cloNIDine HCL 0.2 MG TAB PO SCH ×2 (09:24→21:27)
[2017-03-14] MEDS: THIAMINE HCL 100 MG TAB PO SCH (09:24)
[2017-03-14] MEDS: PANTOPRAZOLE SOD 40 MG DELAYED RELEASE TAB PO SCH (09:24)
[2017-03-14] MEDS: SODIUM CHLORIDE 0.9% FLUSH 10 ML FLUSH IV FLUSH SCH ×2 (09:24→21:29)
--- NOTE | 2017-03-14 10:57 | HHI.IDPN ---
Subjective Subjective Remarks chart reviewed D/W RN Had one temp spike at [place] 103, afebrile this morning NO new complaints No suspicious acticvity as far as any visitor of any drug use overnight No resp complaint No N/V/D Voiding ok Last BC 03/10 negative Last CBC 03/12, normal WBC, increased monos and eos LFT ok Creatinine ok Antibiotics cefazoline Lines LIne site ok Past Medical History Hypertension: Untreated. 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 Vital Signs Date Time Temp Pulse Resp B/P (MAP) Pulse Ox O2 Delivery O2 Flow Rate FiO2 03/14/17 08:00 98.5 63 18 122/82 (95) 96 03/14/17 07:23 Room Air 03/14/17 04:00 Room Air 03/14/17 04:00 103.0 107 21 149/92 (111) 96 03/14/17 00:00 Room Air 03/14/17 00:00 97.4 56 18 130/78 (95) 100 03/13/17 20:00 Room Air 03/13/17 20:00 97.4 62 18 134/83 (100) 100 03/13/17 16:06 98.5 63 18 139/81 (100) 98 03/13/17 12:20 97.5 60 17 107/72 (84) 97 03/14/17 03/14/17 03/15/17 15:00 23:00 07:00 Intake Total 0 ml Balance 0 ml IV Total 0 ml Imaging Last Impressions Upper Extremity Ultrasound 03/05/17 0000 Signed Impressions: Service Date/Time: February 21:22 - CONCLUSION: Superficial thrombus of the right upper extremity involving the cephalic vein. Otherwise negative. Shan Coleman MD Chest X-Ray 03/05/17 0000 Signed Impressions: Service Date/Time: February 12:27 - CONCLUSION: 1. Mild cardiomegaly. 2. No acute focal pulmonary infiltrate or pulmonary vascular congestion. Giovanni Welsh MD Upper Extremity CT 02/21/17 0000 Signed Impressions: Service Date/Time: Tuesday, February 21, 2017 09:26 - CONCLUSION: 1. Cellulitis, subcutaneous edema and right antecubital region loculated fluid collection characteristic of an abscess. Jon Pratt MD Chest CT 02/21/17 0000 Signed Impressions: Service Date/Time: Tuesday, February 21, 2017 09:21 - CONCLUSION: 1. Small bilateral effusions and right lower lobe basilar airspace disease. 2. Aortic aneurysm. 3. Atherosclerosis. 4. Right arm abscess and cellulitis. Jon Pratt MD Physical Exam GENERAL:Awake and alert, ambulating in room. No rash SKIN: Multiple track mcclain visible. HEAD: Atraumatic. Normocephalic. No temporal or scalp tenderness. EYES: Pupils equal round and reactive. Extraocular motions intact. No scleral icterus. No injection or drainage. ENT: Nose without bleeding, purulent drainage or septal hematoma. Throat without erythema, tonsillar hypertrophy or exudate. Uvula midline. Airway patent. NECK: Trachea midline. Supple, nontender, no meningeal signs. CARDIOVASCULAR: No murmur appreciated. RESPIRATORY: Breath sounds decreased bilaterally. GASTROINTESTINAL: Abdomen soft, non-tender, nondistended. MUSCULOSKELETAL: Left arm and forearm with erythema, induration noted present. has drain coing out of the surgical site. L antecubital area with healing clean incision non tender induration. No erythema, no fluctuance R forearm, IV site ok, has erythema around the IV site, no fluctuance, (+) tender palpable cord NEUROLOGICAL: Awake and alert. Grossly nonfocal. IV line sites with no evidence of infection. Assessment & Plan Remarks Assessment and Plan Sepsis present on admission, better Mitral valve endocarditis, clx negative Left Arm abscess S/P I and D, GAS Possible septic thrombophlebitis of Lt arm. IVDA Persistent intermittent fever Another febrile epsoede ? phlebitis R forearm vs transient bacteremia from using IV drugs in -pt Recs Will repeat BC if he has any temp spike Remove current IV and restart new PIV Monitor temps Continue cefazolin for GAS Dalvance infusion as outpatient plans for D/C Monitor progress Will also need Clindamycin oral on discharge. Pt is not a good candidate for PICC or IV line infusions in hospital. Safer to administer Dalvance once in 12 days using a fresh PIV each time. Mony Szymanski MD Mar 14, 2017 10:57
[2017-03-14 12:00] VITALS: BP 106/60; PULSE 62; RESP 18; TEMP 98.7; O2SAT 97
--- NOTE | 2017-03-14 14:19 | HHI.PR ---
Subjective Remarks The patient said that he got a new IV placed. He had no acute concerns. Discussed with nursing. Objective Vitals Vital Signs Date Time Temp Pulse Resp B/P (MAP) Pulse Ox O2 Delivery O2 Flow Rate FiO2 03/14/17 12:00 98.7 62 18 106/60 (75) 97 03/14/17 08:00 98.5 63 18 122/82 (95) 96 03/14/17 07:23 Room Air 03/14/17 04:00 Room Air 03/14/17 04:00 103.0 107 21 149/92 (111) 96 03/14/17 00:00 Room Air 03/14/17 00:00 97.4 56 18 130/78 (95) 100 03/13/17 20:00 Room Air 03/13/17 20:00 97.4 62 18 134/83 (100) 100 03/13/17 16:06 98.5 63 18 139/81 (100) 98 I/O 03/13/17 03/13/17 03/13/17 03/14/17 03/14/17 03/14/17 07:00 15:00 23:00 07:00 15:00 23:00 Intake Total 480 ml 960 ml 560 ml 600 ml Output Total 500 ml 1000 ml 750 ml Balance -20 ml -40 ml -190 ml 600 ml Intake Oral 480 ml 960 ml 560 ml 600 ml IV Total 0 ml Output Urine Total 500 ml 1000 ml 750 ml # Voids 2 # Bowel Movements 1 0 1 1 Result Diagram: 03/12/1728 03/12/17 0728 Imaging Last Impressions Upper Extremity Ultrasound 03/05/17 0000 Signed Impressions: Service Date/Time: February 21:22 - CONCLUSION: Superficial thrombus of the right upper extremity involving the cephalic vein. Otherwise negative. Shan Coleman MD Chest X-Ray 03/05/17 0000 Signed Impressions: Service Date/Time: February 12:27 - CONCLUSION: 1. Mild cardiomegaly. 2. No acute focal pulmonary infiltrate or pulmonary vascular congestion. Giovanni Welsh MD Upper Extremity CT 02/21/17 0000 Signed Impressions: Service Date/Time: Tuesday, February 21, 2017 09:26 - CONCLUSION: 1. Cellulitis, subcutaneous edema and right antecubital region loculated fluid collection characteristic of an abscess. Jon Pratt MD Chest CT 02/21/17 0000 Signed Impressions: Service Date/Time: Tuesday, February 21, 2017 09:21 - CONCLUSION: 1. Small bilateral effusions and right lower lobe basilar airspace disease. 2. Aortic aneurysm. 3. Atherosclerosis. 4. Right arm abscess and cellulitis. Jon Pratt MD Objective Remarks GENERAL: Well nourished in NAD SKIN: Warm and dry. Right forearm tender due to thrombophlebitis EYES: Pupils equal and round. ENT: No nasal bleeding or discharge. Mucous membranes pink and moist. NECK: Trachea midline. No JVD. CARDIOVASCULAR: Regular rate and rhythm. RESPIRATORY: No accessory muscle use. Clear to auscultation. Breath sounds equal bilaterally. GASTROINTESTINAL: Abdomen soft, non-tender, nondistended. Bsx4 MUSCULOSKELETAL: Extremities without clubbing, cyanosis, or edema. No obvious deformities. NEUROLOGICAL: Awake and alert. Motor grossly within normal limits. Normal speech. PSYCHIATRIC: Appropriate mood and affect; insight and judgment normal. Procedures Left forearm incision and drainage 02/21/17 Medications and IVs Current Medications Medications (Trade) Dose Ordered Sig/Brennon Route Start Time Stop Time Status Last Admin (Zofran Inj) 4 mg Q6H PRN IVP 02/19/17 18:45 (Narcan Inj) 0.4 mg UNSCH PRN IV 02/19/17 18:45 (Pearl-Colace) 1 tab BID PO 02/19/17 21:00 03/07/17 08:08 (Milk Of Magnesia Liq) 30 ml Q12H PRN PO 02/19/17 18:45 (Senokot) 17.2 mg Q12H PRN PO 02/19/17 18:45 (Dulcolax Supp) 10 mg DAILY PRN RECTAL 02/19/17 18:45 (Lactulose Liq) 30 ml DAILY PRN PO 02/19/17 18:45 (Tylenol) 650 mg Q4H PRN PO 02/20/17 09:00 03/14/17 04:23 (NS Flush) 2 ml UNSCH PRN IV FLUSH 02/20/17 12:30 02/22/17 21:24 (NS Flush) 2 ml BID IV FLUSH 02/20/17 21:00 03/14/17 09:24 (Vitamin B1) 100 mg DAILY PO 02/20/17 12:30 03/14/17 09:24 (Protonix) 40 mg DAILY PO 02/20/17 12:30 03/14/17 09:24 (Romazicon Inj) 0.2 mg Q1M PRN IV PUSH 02/20/17 12:30 (Haldol Inj) 2 mg Q15M PRN IM 02/20/17 12:30 (Lovenox Inj) 40 mg Q24H SQ 02/20/17 22:00 03/13/17 20:30 (Norvasc) 10 mg DAILY PO 02/26/17 09:00 03/14/17 09:24 (Sodium Chloride) 1 gm DAILY PO 03/02/17 09:00 Future Hold 03/06/17 10:08 Cefazolin Sodium/ Dextrose 50 ml @ 150 mls/hr Q8H IV 03/02/17 10:00 03/14/17 09:24 (Catapres) 0.2 mg Q12HR PO 03/03/17 09:00 03/14/17 09:24 (Apresoline) 10 mg Q6HR PO 03/06/17 18:00 03/14/17 11:40 (Motrin) 800 mg Q8HR PO 03/06/17 22:00 03/14/17 05:17 (Dilaudid) 2 mg Q8H PRN PO 03/07/17 18:30 03/14/17 09:25 (Imodium) 2 mg Q4H PRN PO 03/07/17 18:30 (Catapres) 0.1 mg Q6H PRN PO 03/07/17 18:30 Line: PICC Side: Right A/P Problem List: (1) Cellulitis of left arm ICD Code: L03.114 - Cellulitis of left upper limb (2) Abscess of left arm ICD Code: L02.414 - Cutaneous abscess of left upper limb (3) IV drug user ICD Code: F19.90 - Other psychoactive substance use, unspecified, uncomplicated Status: Acute (4) IV drug abuse ICD Code: F19.10 - Other psychoactive substance abuse, uncomplicated Status: Acute (5) Cellulitis ICD Code: L03.90 - Cellulitis, unspecified Status: Acute (6) Fever ICD Code: R50.9 - Fever, unspecified Status: Resolved (7) Skin abscess ICD Code: L02.91 - Cutaneous abscess, unspecified Status: Acute (8) HTN (hypertension) ICD Code: I10 - Essential (primary) hypertension Status: Acute (9) Renal insufficiency ICD Code: N28.9 - Disorder of kidney and ureter, unspecified (10) Hypokalemia ICD Code: E87.6 - Hypokalemia Assessment and Plan 47-year-old IV drug user who presented with left arm cellulitis-history of crushing up pills shooting them up Mitral valve endocarditis Left arm cellulitis/abscess/ sepsis Currently on vancomycin 6 weeks per infectious disease specialist; strep susceptibility available. Per ID If blood cultures are negative for 72 hours, possible DC on Dalvance at infusion clinic. Repeat blood cx thus far neg. Spiked a fever of 103 03/14. Hand surgery has signed off, status post I&D Monitor weekly labs including CBC, CMP, CRP every Thursday. Pt did have right thromboplebitis which could potentially be the source of fever. Continue to elevate both arms, compresses to the right arm, Motrin and Tylenol as needed. D/c IV on right arm per ID. Hyponatremia, mild, resolved HL-IV. monitor. IV drug user with Dilaudid, Roxicodone, oxycodone Patient counseled against. Do not recommend increasing dose of po pain meds. consider starting to wean them. Benign hypertension, resolved Cont hydralazine po and norvasc, clonidine prn Renal insufficiency, Resolved with IV fluid hydration Hypokalemia, Resolved DVT prophylaxis -Lovenox renally dosed Discharge Planning Discharge when cleared by infectious disease Problem Qualifiers (1) Cellulitis: Qualified Codes: L03.114 - Cellulitis of left upper limb (2) Fever: Qualified Codes: R50.9 - Fever, unspecified Austen House DO Mar 14, 2017 14:19
[2017-03-14 16:00] VITALS: BP 124/75; PULSE 63; RESP 18; TEMP 98.8; O2SAT 100
[2017-03-14 20:00] VITALS: BP 127/83; PULSE 87; RESP 18; TEMP 98.4; O2SAT 98
[2017-03-14] MEDS: ENOXAPARIN SODIUM 40 MG/0.4 ML SYRINGE SQ SCH (21:28)
[2017-03-15] VITALS: BP 137/88; PULSE 66; RESP 18; TEMP 98.4; O2SAT 100
[2017-03-15] MEDS: hydrALAZINE HCL 10 MG TAB PO SCH ×4 (01:00→17:47)
[2017-03-15] MEDS: HYDROmorphone HCL 2 MG TAB PO PRN ×3 (01:00→17:47)
[2017-03-15] MEDS: ceFAZolin 2 GM PREMIX 50 ML IV SCH ×3 (01:01→17:47)
[2017-03-15 04:00] VITALS: BP 115/71; PULSE 52; RESP 18; TEMP 98.2; O2SAT 97
[2017-03-15] MEDS: IBUPROFEN 800 MG TAB PO SCH (05:59)
[2017-03-15 08:00] VITALS: BP 133/80; PULSE 54; RESP 18; TEMP 98.5; O2SAT 100
[2017-03-15 09:02] LABS: HEMATOCRIT 36.6 % (39.0-51.0); MEAN CORPUSCULAR HEMOGLOBIN 29.1 PG (27.0-34.0); MEAN CORPUSCULAR HGB CONC 33.4 % (32.0-36.0); PLATELET COUNT 168 TH/MM3 (150-450); RED CELL DISTRIBUTION WIDTH 14.6 % (11.6-17.2); WHITE BLOOD COUNT 7.4 TH/MM3 (4.0-11.0)
[2017-03-15 09:04] LABS: HEMO FLAGS AUTO DIFF
[2017-03-15] MEDS: PANTOPRAZOLE SOD 40 MG DELAYED RELEASE TAB PO SCH (09:15)
[2017-03-15] MEDS: cloNIDine HCL 0.2 MG TAB PO SCH ×2 (09:16→21:28)
[2017-03-15] MEDS: DOCUSATE SODIUM 50 MG/SENNA 8.6 MG TAB PO SCH ×2 (09:16→21:00)
[2017-03-15] MEDS: THIAMINE HCL 100 MG TAB PO SCH (09:16)
[2017-03-15] MEDS: SODIUM CHLORIDE 0.9% FLUSH 10 ML FLUSH IV FLUSH SCH ×2 (09:17→21:29)
[2017-03-15 09:48] LABS: BANDS 8 % (0-6); EOSINOPHILS 6 % (0-4); NEUTROPHIL # MANUAL DIFF 4.1 TH/MM3 (1.8-7.7); POLYS (SEG NEUTROPHILS) 47 % (16-70); WBC DIFF SAMPLE 100
[2017-03-15 09:49] LABS: PLATELET ESTIMATE SMEAR NORMAL (NORMAL); PLATELET MORPHOLOGY NORMAL (NORMAL); SCAN/DIFF FINAL DIFF MANUAL
[2017-03-15] MEDS ORDERED: IBUPROFEN 800 MG TAB PO PRN (10:15)
--- NOTE | 2017-03-15 10:15 | HHI.PR ---
Subjective Remarks The patient was wondering if he can get out of here soon. 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 He was wondering about increased pain medications. Discussed with nursing. Objective Vitals Vital Signs Date Time Temp Pulse Resp B/P (MAP) Pulse Ox O2 Delivery O2 Flow Rate FiO2 03/15/17 08:00 98.5 54 18 133/80 (97) 100 03/15/17 04:00 Room Air 03/15/17 04:00 98.2 52 18 115/71 (86) 97 03/15/17 00:00 98.4 66 18 137/88 (104) 100 03/15/17 00:00 Room Air 03/14/17 20:00 Room Air 03/14/17 20:00 98.4 87 18 127/83 (98) 98 03/14/17 16:00 98.8 63 18 124/75 (91) 100 03/14/17 12:00 98.7 62 18 106/60 (75) 97 I/O 03/14/17 03/14/17 03/14/17 03/15/17 03/15/17 03/15/17 07:00 15:00 23:00 07:00 15:00 23:00 Intake Total 560 ml 600 ml 50 ml Output Total 750 ml Balance -190 ml 600 ml 50 ml Intake Oral 560 ml 600 ml IV Total 0 ml 50 ml Output Urine Total 750 ml # Voids 2 # Bowel Movements 1 1 Result Diagram: 03/15/17 0804 03/12/17 0728 Imaging Last Impressions Upper Extremity Ultrasound 03/05/17 0000 Signed Impressions: Service Date/Time: February 21:22 - CONCLUSION: Superficial thrombus of the right upper extremity involving the cephalic vein. Otherwise negative. Shan Coleman MD Chest X-Ray 03/05/17 0000 Signed Impressions: Service Date/Time: February 12:27 - CONCLUSION: 1. Mild cardiomegaly. 2. No acute focal pulmonary infiltrate or pulmonary vascular congestion. Giovanni Welsh MD Upper Extremity CT 02/21/17 0000 Signed Impressions: Service Date/Time: Tuesday, February 21, 2017 09:26 - CONCLUSION: 1. Cellulitis, subcutaneous edema and right antecubital region loculated fluid collection characteristic of an abscess. Jon Pratt MD Chest CT 02/21/17 0000 Signed Impressions: Service Date/Time: Tuesday, February 21, 2017 09:21 - CONCLUSION: 1. Small bilateral effusions and right lower lobe basilar airspace disease. 2. Aortic aneurysm. 3. Atherosclerosis. 4. Right arm abscess and cellulitis. Jon Pratt MD Objective Remarks GENERAL: Well nourished in NAD SKIN: Warm and dry. Right forearm tender due to thrombophlebitis EYES: Pupils equal and round. ENT: No nasal bleeding or discharge. Mucous membranes pink and moist. NECK: Trachea midline. No JVD. CARDIOVASCULAR: Regular rate and rhythm. RESPIRATORY: No accessory muscle use. Clear to auscultation. Breath sounds equal bilaterally. GASTROINTESTINAL: Abdomen soft, non-tender, nondistended. Bsx4 MUSCULOSKELETAL: Extremities without clubbing, cyanosis, or edema. No obvious deformities. NEUROLOGICAL: Awake and alert. Motor grossly within normal limits. Normal speech. PSYCHIATRIC: Appropriate mood and affect; insight and judgment normal. Procedures Left forearm incision and drainage 02/21/17 Medications and IVs Current Medications Medications (Trade) Dose Ordered Sig/Brennon Route Start Time Stop Time Status Last Admin (Zofran Inj) 4 mg Q6H PRN IVP 02/19/17 18:45 (Narcan Inj) 0.4 mg UNSCH PRN IV 02/19/17 18:45 (Pearl-Colace) 1 tab BID PO 02/19/17 21:00 03/15/17 09:16 (Milk Of Magnesia Liq) 30 ml Q12H PRN PO 02/19/17 18:45 (Senokot) 17.2 mg Q12H PRN PO 02/19/17 18:45 (Dulcolax Supp) 10 mg DAILY PRN RECTAL 02/19/17 18:45 (Lactulose Liq) 30 ml DAILY PRN PO 02/19/17 18:45 (Tylenol) 650 mg Q4H PRN PO 02/20/17 09:00 03/14/17 04:23 (NS Flush) 2 ml UNSCH PRN IV FLUSH 02/20/17 12:30 02/22/17 21:24 (NS Flush) 2 ml BID IV FLUSH 02/20/17 21:00 03/15/17 09:17 (Vitamin B1) 100 mg DAILY PO 02/20/17 12:30 03/15/17 09:16 (Protonix) 40 mg DAILY PO 02/20/17 12:30 03/15/17 09:15 (Romazicon Inj) 0.2 mg Q1M PRN IV PUSH 02/20/17 12:30 (Haldol Inj) 2 mg Q15M PRN IM 02/20/17 12:30 (Lovenox Inj) 40 mg Q24H SQ 02/20/17 22:00 03/14/17 21:28 (Norvasc) 10 mg DAILY PO 02/26/17 09:00 03/15/17 09:16 (Sodium Chloride) 1 gm DAILY PO 03/02/17 09:00 Future Hold 03/06/17 10:08 Cefazolin Sodium/ Dextrose 50 ml @ 150 mls/hr Q8H IV 03/02/17 10:00 03/15/17 09:17 (Catapres) 0.2 mg Q12HR PO 03/03/17 09:00 03/15/17 09:16 (Apresoline) 10 mg Q6HR PO 03/06/17 18:00 03/15/17 05:59 (Motrin) 800 mg Q8HR PO 03/06/17 22:00 03/15/17 05:59 (Dilaudid) 2 mg Q8H PRN PO 03/07/17 18:30 03/15/17 09:15 (Imodium) 2 mg Q4H PRN PO 03/07/17 18:30 (Catapres) 0.1 mg Q6H PRN PO 03/07/17 18:30 Line: PICC Side: Right A/P Problem List: (1) Cellulitis of left arm ICD Code: L03.114 - Cellulitis of left upper limb (2) Abscess of left arm ICD Code: L02.414 - Cutaneous abscess of left upper limb (3) IV drug user ICD Code: F19.90 - Other psychoactive substance use, unspecified, uncomplicated Status: Acute (4) IV drug abuse ICD Code: F19.10 - Other psychoactive substance abuse, uncomplicated Status: Acute (5) Cellulitis ICD Code: L03.90 - Cellulitis, unspecified Status: Acute (6) Fever ICD Code: R50.9 - Fever, unspecified Status: Resolved (7) Skin abscess ICD Code: L02.91 - Cutaneous abscess, unspecified Status: Acute (8) HTN (hypertension) ICD Code: I10 - Essential (primary) hypertension Status: Acute (9) Renal insufficiency ICD Code: N28.9 - Disorder of kidney and ureter, unspecified (10) Hypokalemia ICD Code: E87.6 - Hypokalemia Assessment and Plan 47-year-old IV drug user who presented with left arm cellulitis-history of crushing up pills shooting them up Mitral valve endocarditis Left arm cellulitis/abscess/ sepsis Currently on vancomycin 6 weeks per infectious disease specialist; strep susceptibility available. Per ID If blood cultures are negative for 72 hours, possible DC on [facility] at infusion clinic. Repeat blood cx thus far neg. Spiked a fever of 103 03/14. Hand surgery has signed off, status post I&D Monitor weekly labs including CBC, CMP, CRP every Thursday. Pt did have right thromboplebitis which could potentially be the source of fever. Continue to elevate both arms, compresses to the right arm, Motrin and Tylenol as needed. D/c IV on right arm per ID. Afebrile 03/15. - pain control with PO Dilaudid and ibuprofen. Hyponatremia, mild, resolved HL-IV. monitor. IV drug user with Dilaudid, Roxicodone, oxycodone Patient counseled against. Not a candidate for a PICC line. Benign hypertension, resolved Cont hydralazine po and Norvasc, clonidine prn Renal insufficiency, Resolved with IV fluid hydration Hypokalemia, Resolved DVT prophylaxis -Lovenox renally dosed Discharge Planning Discharge with [facility] when cleared by infectious disease Problem Qualifiers (1) Cellulitis: Qualified Codes: L03.114 - Cellulitis of left upper limb (2) Fever: Qualified Codes: R50.9 - Fever, unspecified Austen House DO Mar 15, 2017 10:15
[2017-03-15 12:00] VITALS: BP 127/67; PULSE 61; RESP 18; TEMP 98.3; O2SAT 97
[2017-03-15 16:00] VITALS: BP 130/74; PULSE 61; RESP 18; TEMP 98.8; O2SAT 97
[2017-03-15 20:00] VITALS: BP 127/83; PULSE 68; RESP 18; TEMP 97.9; O2SAT 100
[2017-03-15] MEDS: ENOXAPARIN SODIUM 40 MG/0.4 ML SYRINGE SQ SCH (21:29)
[2017-03-16] VITALS: BP 142/84; PULSE 76; RESP 18; TEMP 97.5; O2SAT 97
[2017-03-16] MEDS: ceFAZolin 2 GM PREMIX 50 ML IV SCH ×2 (00:57→10:10)
[2017-03-16] MEDS: hydrALAZINE HCL 10 MG TAB PO SCH ×2 (00:57→06:08)
[2017-03-16] MEDS: HYDROmorphone HCL 2 MG TAB PO PRN ×2 (01:28→10:13)
[2017-03-16 04:00] VITALS: BP 126/80; PULSE 60; RESP 16; TEMP 99.5; O2SAT 100
[2017-03-16 08:00] VITALS: BP 132/85; PULSE 60; RESP 16; TEMP 97.6; O2SAT 97
[2017-03-16] MEDS: DOCUSATE SODIUM 50 MG/SENNA 8.6 MG TAB PO SCH (09:00)
[2017-03-16] MEDS: SODIUM CHLORIDE 0.9% FLUSH 10 ML FLUSH IV FLUSH SCH (10:10)
[2017-03-16] MEDS: PANTOPRAZOLE SOD 40 MG DELAYED RELEASE TAB PO SCH (10:12)
[2017-03-16] MEDS: cloNIDine HCL 0.2 MG TAB PO SCH (10:14)
[2017-03-16] MEDS: THIAMINE HCL 100 MG TAB PO SCH (10:14)
--- NOTE | 2017-03-16 11:13 | PD.AMA ---
Against Medical Advice Note Diagnosis: (1) Fever (2) Cellulitis of left arm (3) Abscess of left arm (4) IV drug abuse (5) Cellulitis of arm, right (6) Endocarditis (7) Sepsis Discharge Disposition: Against Medical Advice Pt Condition on Discharge: Stable Recommended Treatment Course Continued antibiotics in-house until outpatient antibiotics could be arranged AMA Statement Patient Shon Duncan has decided to leave the hospital against medical advice. This patient has the capacity to refuse care and understands the risks of leaving, including permanent disability and/or , and has had an opportunity to ask questions about his condition. The patient has been informed that he may return for care at any time, and follow up has been arranged/ advised. Austen House DO Mar 16, 2017 11:13
--- NOTE | 2017-03-16 11:14 | HHI.DCPOC ---
Discharge Care Plan Diagnosis: (1) Endocarditis (2) IV drug user (3) Cellulitis of arm, right (4) Fever (5) Cellulitis of left arm (6) Abscess of left arm (7) Sepsis Goals to Promote Your Health * To prevent worsening of your condition and complications * To maintain your health at the optimal level Directions to Meet Your Goals Take your medications as prescribed Follow your dietary instruction Follow activity as directed Keep your appointments as scheduled Take your immunizations and boosters as scheduled If your symptoms worsen call your PCP, if no PCP go to Urgent Care Center or Emergency Room Smoking is Dangerous to Your Health. Avoid second hand smoke Call the 24-hour hour crisis hotline for domestic abuse at Austen House DO Mar 16, 2017 11:14
--- NOTE | 2017-03-16 11:15 | HHI.DS ---
Discharge Summary Admission Date Feb 19, 2017 at 18:30 Discharge Date: Mar 16, 2017 Admitting Diagnosis sepsis, cellulitis, IVDA (1) Cellulitis of left arm ICD Code: L03.114 - Cellulitis of left upper limb Diagnosis: Principal (2) Abscess of left arm ICD Code: L02.414 - Cutaneous abscess of left upper limb Diagnosis: Principal (3) IV drug user ICD Code: F19.90 - Other psychoactive substance use, unspecified, uncomplicated Status: Acute (4) IV drug abuse ICD Code: F19.10 - Other psychoactive substance abuse, uncomplicated Status: Acute (5) Cellulitis ICD Code: L03.90 - Cellulitis, unspecified Status: Acute (6) Fever ICD Code: R50.9 - Fever, unspecified Status: Resolved (7) Skin abscess ICD Code: L02.91 - Cutaneous abscess, unspecified Status: Acute (8) HTN (hypertension) ICD Code: I10 - Essential (primary) hypertension Status: Acute (9) Renal insufficiency ICD Code: N28.9 - Disorder of kidney and ureter, unspecified (10) Hypokalemia ICD Code: E87.6 - Hypokalemia (11) Endocarditis ICD Code: I38 - Endocarditis, valve unspecified Procedures Left forearm incision and drainage 02/21/17 Brief History - From Admission This is a 47-year-old male with current IV drug user with Dilaudid, oxycodone, and Roxicodone who presented with fatigue and left arm cellulitis. Patient stated that he last used IV drugs 2 days ago. He has some swelling then erythema after use. Patient stated that since it got worse he presented to the ED. He denies any other types of drug use. Stated he stopped smoking tobacco long time ago. Denies any alcohol use. Patient is lethargic during the interview but he is AAO 3. He is able to answer question appropriately. His nurse is at the bedside. All other review of symptoms reviewed and negative. CBC/BMP: 03/15/17 0804 03/12/17 0728 Significant Findings Laboratory Tests Test 03/15/17 08:04 Red Blood Count 4.20 MIL/MM3 (4.50-5.90) Hemoglobin 12.2 GM/DL (13.0-17.0) Hematocrit 36.6 % (39.0-51.0) Band Neutrophils % 8 % (0-6) Monocytes % 20 % (0-8) Eosinophils % 6 % (0-4) Imaging Last Impressions Upper Extremity Ultrasound 03/05/17 0000 Signed Impressions: Service Date/Time: February 21:22 - CONCLUSION: Superficial thrombus of the right upper extremity involving the cephalic vein. Otherwise negative. Shan Coleman MD Chest X-Ray 03/05/17 0000 Signed Impressions: Service Date/Time: February 12:27 - CONCLUSION: 1. Mild cardiomegaly. 2. No acute focal pulmonary infiltrate or pulmonary vascular congestion. Giovanni Welsh MD Upper Extremity CT 02/21/17 0000 Signed Impressions: Service Date/Time: Tuesday, February 21, 2017 09:26 - CONCLUSION: 1. Cellulitis, subcutaneous edema and right antecubital region loculated fluid collection characteristic of an abscess. Jon Pratt MD Chest CT 02/21/17 0000 Signed Impressions: Service Date/Time: Tuesday, February 21, 2017 09:21 - CONCLUSION: 1. Small bilateral effusions and right lower lobe basilar airspace disease. 2. Aortic aneurysm. 3. Atherosclerosis. 4. Right arm abscess and cellulitis. Jon Pratt MD PE at Discharge GENERAL: Well nourished in NAD SKIN: Warm and dry. Right forearm tender due to thrombophlebitis EYES: Pupils equal and round. ENT: No nasal bleeding or discharge. Mucous membranes pink and moist. NECK: Trachea midline. No JVD. CARDIOVASCULAR: Regular rate and rhythm. RESPIRATORY: No accessory muscle use. Clear to auscultation. Breath sounds equal bilaterally. GASTROINTESTINAL: Abdomen soft, non-tender, nondistended. Bsx4 MUSCULOSKELETAL: Extremities without clubbing, cyanosis, or edema. No obvious deformities. NEUROLOGICAL: Awake and alert. Motor grossly within normal limits. Normal speech. PSYCHIATRIC: Appropriate mood and affect; insight and judgment normal. Hospital Course Mitral valve endocarditis/ Left arm cellulitis/abscess/sepsis Hand surgery was consulted and the pt is s/p left forearm incision and drainage on 02/21/17. Infectious disease was consulted. Started on vancomycin, which was changed to cefazolin. Culture grew group A beta hemolytic strep. Repeat blood cultures were negative. Has been spiking fevers intermittently. Hand surgery has signed off. We monitored labs including CBC, CMP, CRP. Pt did have right thrombophlebitis which was concerned on ultrasound. The IV in that arm was removed. He received pain control with a bowel regimen. The pt was in the process of having outpt antibiotics arranged with [facility] infusions when he made the decision to leave [facility]. He understood the risks of leaving the hospital before completing treatment but he wished to proceed with signing out of the hospital. IV drug user The pt has a history of IV drug use. Patient was counseled against drug use. There were concerns of him injecting illicit substances. He was deemed to not be a suitable candidate for a PICC line secondary to his IV drug use. Hypertension He was started on hydralazine, Norvasc and clonidine prn. Renal insufficiency Resolved with IV fluid hydration. Pt Condition on Discharge: Stable Discharge Disposition: Discharge Home Discharge Time: > 30 minutes Discharge Instructions DIET: Follow Instructions for: As Tolerated, No Restrictions Follow up Referrals: Hand Surgery - 1 Week with Karri De La Rosa III, MD PCP Follow-up - 1 Week Medication Profile: No Active Prescriptions or Reported Meds Austen House DO Mar 16, 2017 11:15
== END 2017-03-16 11:53 | disposition left against medical advice (07) | DRG 872 ==
LOC: NEPE 16:47 → NEDA 18:30 → N04B 23:57
PROVIDERS: ADMIT Hospitalist; ATTEND Hospitalist
PROC: 0H9CX0Z Drainage of Left Upper Arm Skin with Drainage Device, External Approach (ICD-10-PCS; principal; 2017-02-21 19:36)
DX: A41.9 Sepsis, unspecified organism (principal); E87.1 Hypo-osmolality and hyponatremia; I10 Essential (primary) hypertension; L02.414 Cutaneous abscess of left upper limb; L03.114 Cellulitis of left upper limb; I82.611 Acute embolism and thrombosis of superficial veins of right upper extremity; E87.6 Hypokalemia; N28.9 Disorder of kidney and ureter, unspecified; I71.9 Aortic aneurysm of unspecified site, without rupture; B19.20 Unspecified viral hepatitis C without hepatic coma; F11.10 Opioid abuse, uncomplicated; Z86.14 Personal history of Methicillin resistant Staphylococcus aureus infection; Z87.891 Personal history of nicotine dependence; Z91.19 Patient's noncompliance with other medical treatment and regimen
CPT/HCPCS: 71010; 71260; 73201; 76937; 80048; 80053; 80074; 80202; 81001; 82565; 82948; 83036; 83605; 83735; 84100; 84439; 84443; 85007; 85025; 85027; 86140; 86703; 87015; 87040; 87070; 87102; 87116; 87186; 87205; 87206; 93306; 93971; 96365; J0690; J1650; J2060; J2543; J3010; J3370; J7030; J7040; J7050; Q9967

== ENCOUNTER 2017-09-21 15:47 | Inpatient (IN) | payer SELFPAY ==
[~2017-09-21] VITALS: Ht 172.7 cm; Wt 72.0 kg
[~2017-09-21 15:47] MED LIST changes: -HYDR4TAB PO; +LIDOCAINE HCL 1% PF 5 ML SYRINGE OTHER ONE; +PROPOFOL 200 MG/20 ML AMP IV ONE; +ROCURONIUM INJ 50 MG/5 ML SYRINGE IV PUSH ONE; +SUCCINYLCHOLINE CHLORIDE 200 MG/10 ML VIAL IV ONE; -VANCOMYCIN INJ 1,000 MG in SODIUM CHLOR 0.9% 250 ML INJ 250 ML IV ONE
[2017-09-21 16:02] VITALS: BP 174/89; PULSE 72; RESP 16; TEMP 98.9; O2SAT 99
[2017-09-21 18:11] LABS: AUTOMATED NEUTROPHIL # 10.5 TH/MM3 (1.8-7.7); BASOPHIL # 0.1 TH/MM3 (0-0.2); BASOPHIL % 0.6 % (0.0-2.0); EOSINOPHIL # 0.3 TH/MM3 (0-0.4); EOSINOPHIL % 2.4 % (0.0-4.0); HEMATOCRIT 37.5 % (39.0-51.0); HEMOGLOBIN 12.6 GM/DL (13.0-17.0); LYMPH % 16.9 % (9.0-44.0); LYMPHOCYTE # 2.4 TH/MM3 (1.0-4.8); MEAN CELL VOLUME 82.6 FL (80.0-100.0); MEAN CORPUSCULAR HEMOGLOBIN 27.8 PG (27.0-34.0); MEAN CORPUSCULAR HGB CONC 33.6 % (32.0-36.0); MEAN PLATELET VOLUME 8.5 FL (7.0-11.0); MONO % 6.9 % (0.0-8.0); NEUT % 73.2 % (16.0-70.0); PLATELET COUNT 235 TH/MM3 (150-450); RED BLOOD COUNT 4.54 MIL/MM3 (4.50-5.90); RED CELL DISTRIBUTION WIDTH 15.1 % (11.6-17.2); WHITE BLOOD COUNT 14.4 TH/MM3 (4.0-11.0)
[2017-09-21 18:26] LABS: ALBUMIN 2.9 GM/DL (3.4-5.0); ALKALINE PHOSPHATASE 72 U/L (45-117); ALT (GPT) 21 U/L (12-78); AST (GOT) 22 U/L (15-37); BICARBONATE 29.5 MEQ/L (21.0-32.0); BLOOD UREA NITROGEN 10 MG/DL (7-18); CALCIUM 8.3 MG/DL (8.5-10.1); CHLORIDE 98 MEQ/L (98-107); CREATININE 1.12 MG/DL (0.60-1.30); GLOMERULAR FILTRATION RATE 70 ML/MIN (>89); GLUCOSE,RANDOM 77 MG/DL (74-106); SODIUM (NA) 135 MEQ/L (136-145); TOTAL BILIRUBIN ADULT 0.3 MG/DL (0.2-1.0); TOTAL PROTEIN 7.7 GM/DL (6.4-8.2)
[2017-09-21] MEDS ORDERED: VANCOMYCIN INJ 1,000 MG in SODIUM CHLOR 0.9% 250 ML INJ 250 ML IV STA (18:51)
[2017-09-21] MEDS ORDERED: PIPERACIL-TAZO 4.5 GM PREMIX 100 ML IV STA (18:51)
[2017-09-21] MEDS ORDERED: hydrALAZINE HCL 20 MG/ML VIAL IV PUSH ONE (19:00)
[2017-09-21 19:08] VITALS: BP 198/113; PULSE 57; RESP 16; RESP 18; O2SAT 96
--- NOTE | 2017-09-21 19:12 | PD ---
HPI Chief Complaint: Skin Problem Time Seen by Provider: 18:50 Travel History International Travel<30 days: No Contact w/Intl Traveler<30days: No Traveled to known affect area: No History of Present Illness HPI Patient comes to the emergency department plan bilateral antecubital abscesses ongoing for approximately a week. Patient reports he last shot up Dilaudid approximately 2 weeks ago. Patient reports they are very tender and are worse to palpation. Patient reports he has been trying to keep them clean, but has been getting progressively worse. Denies any fevers, nausea, vomiting, chest pain, shortness of breath, numbness tingling anywhere. Patient reports similar to previous abscesses he had when he was admitted in February. Patient denies following up with anybody or taking blood pressure medication. Patient reports right one started draining yesterday. PFSH Past Medical History Hx Anticoagulant Therapy: No Atrial Fibrillation: No Heart Rhythm Problems: No Cancer: No Cardiovascular Problems: Yes High Cholesterol: No Chemotherapy: No Chest Pain: No Congestive Heart Failure: No Cerebrovascular Accident: No Diabetes: No Diminished Hearing: No Endocrine: No Genitourinary: No Hypertension: Yes Immune Disorder: Yes Musculoskeletal: No Neurologic: No Psychiatric: No Reproductive: No Respiratory: No Integumentary: Yes (absess) Past Surgical History Other Surgery: Yes (hand ) Social History Alcohol Use: No Tobacco Use: Yes Substance Use: Yes Allergies-Medications (Allergen,Severity, Reaction): Coded Allergies: *MDRO Multi-Drug Resistant Organism (Verified Adverse Reaction, Unknown, ) MRSA (arm)-07/10/16 Reported Meds & Prescriptions Reported Meds & Active Scripts Active No Active Prescriptions or Reported Medications Review of Systems Except as stated in HPI: all other systems reviewed are Neg Physical Exam Narrative GENERAL: Well-developed, well nourished, in no acute distress, and ill appearing , but nontoxic. Sleepy on exam but arousable and answers questions appropriately.. SKIN: Abscess is noted bilateral antecubital left greater than the right. Left one is fluctuant. The right one has scant draining. No crepitus. There is surrounding cellulitis left forearm. HEAD: Atraumatic. Normocephalic. EYES: Pupils equal and round. EOMI. No scleral icterus. No injection or drainage. ENT: No nasal bleeding or discharge. Mucous membranes pink and moist. NECK: Trachea midline. Supple. No nuclear rigidity. CARDIOVASCULAR: Regular rate and rhythm. Murmur appreciated. RESPIRATORY: No accessory muscle use. No respiratory distress. Clear to auscultation. Breath sounds equal bilaterally. MUSCULOSKELETAL: No obvious deformities. No clubbing. No cyanosis. No edema. Full range of motion. NEUROLOGICAL: Awake and alert. No obvious cranial nerve deficits. Motor grossly within normal limits. Normal speech. PSYCHIATRIC: Appropriate mood and affect; insight and judgment normal. Data Data Last Documented VS Vital Signs Date Time Temp Pulse Resp B/P (MAP) Pulse Ox O2 Delivery O2 Flow Rate FiO2 09/21/17 19:08 95 Room Air 09/21/17 19:08 57 18 09/21/17 19:08 198/113 (141) 09/21/17 16:02 98.9 Orders Orders Complete Blood Count With Diff (09/21/17 17:09) Comprehensive Metabolic Panel (09/21/17 17:09) Lactic Acid Sepsis Protocol (09/21/17 17:09) Blood Culture (09/21/17 17:09) Iv Access Insert/Monitor (09/21/17 17:09) Oxygen Administration (09/21/17 17:09) Oximetry (09/21/17 17:09) B-Type Natriuretic Peptide (09/21/17 17:09) Wound Culture And Gram Stain (09/21/17 18:50) Piperacil-Tazo 4.5 Gm Premix (Zosyn 4.5 (09/21/17 18:51) Vancomycin Inj (Vancomycin Inj) (09/21/17 18:51) Potassium Chlor 20 Meq Premix (Kcl 20 Me (09/21/17 19:00) Hydralazine Inj (Apresoline Inj) (09/21/17 19:00) Consult Hand Surgery (09/21/17 ) Prothrombin Time / Inr (Pt) (09/21/17 19:54) Act Partial Throm Time (Ptt) (09/21/17 19:54) Electrocardiogram (09/21/17 19:54) Chest, Single Ap (09/21/17 19:54) Admit Order (Ed Use Only) (09/21/17 19:55) Labs Laboratory Tests Test 09/21/17 17:17 White Blood Count 14.4 TH/MM3 Red Blood Count 4.54 MIL/MM3 Hemoglobin 12.6 GM/DL Hematocrit 37.5 % Mean Corpuscular Volume 82.6 FL Mean Corpuscular Hemoglobin 27.8 PG Mean Corpuscular Hemoglobin Concent 33.6 % Red Cell Distribution Width 15.1 % Platelet Count 235 TH/MM3 Mean Platelet Volume 8.5 FL Neutrophils (%) (Auto) 73.2 % Lymphocytes (%) (Auto) 16.9 % Monocytes (%) (Auto) 6.9 % Eosinophils (%) (Auto) 2.4 % Basophils (%) (Auto) 0.6 % Neutrophils # (Auto) 10.5 TH/MM3 Lymphocytes # (Auto) 2.4 TH/MM3 Monocytes # (Auto) 1.0 TH/MM3 Eosinophils # (Auto) 0.3 TH/MM3 Basophils # (Auto) 0.1 TH/MM3 CBC Comment DIFF FINAL Differential Comment Blood Urea Nitrogen 10 MG/DL Creatinine 1.12 MG/DL Random Glucose 77 MG/DL Total Protein 7.7 GM/DL Albumin 2.9 GM/DL Calcium Level 8.3 MG/DL Alkaline Phosphatase 72 U/L Aspartate Amino Transf (AST/SGOT) 22 U/L Alanine Aminotransferase (ALT/SGPT) 21 U/L Total Bilirubin 0.3 MG/DL Sodium Level 135 MEQ/L Potassium Level 2.8 MEQ/L Chloride Level 98 MEQ/L Carbon Dioxide Level 29.5 MEQ/L Anion Gap 8 MEQ/L Estimat Glomerular Filtration Rate 70 ML/MIN Lactic Acid Level 0.7 mmol/L MDM Medical Decision Making Medical Screen Exam Complete: Yes Emergency Medical Condition: Yes Interpretation(s) EKG reviewed by Dr. Abad shows sinus rhythm ventricular rate 77. No STEMI per Differential Diagnosis Abscess, cellulitis, sepsis, necrotizing fasciitis, IV drug abuse, metabolic disturbance Narrative Course Patient seen and examined. IV was established and patient was placed on cardiac monitoring. Labs were reviewed. Patient's potassium was replaced IV. Patient started on IV vancomycin and Zosyn. Wound culture was obtained from right antecubital abscess. Discussed patient with Dr. Abad, who is in agreement plan of care and disposition. Call was placed to Dr. De La Rosa who previously did I&D to left antecubital abscess, who came and saw and evaluated the patient is going to take to the OR tonight. Patient is agreeable for admission. Discussed patient with hospitalist, who is agreeable to admit the patient. Patient remained stable throughout ED course. Physician Communication Physician Communication [address] De La Rosa, hand surgeon shoulder boner, who states he will come evaluate the patient in the ER. [address] Chang, who is agreeable to admit the patient. Diagnosis Primary Impression: Abscess of left arm Additional Impressions: Cellulitis of arm, right Hypertension Qualified Codes: I10 - Essential (primary) hypertension Hypokalemia Admitting Information Admitting Physician Requests: Admit Scripts No Active Prescriptions or Reported Meds Condition: Stable Cyril Collins Sep 21, 2017 19:12
[2017-09-21] MEDS ORDERED: fentaNYL CITRATE 250 MCG/5 ML AMP ONE (20:15)
[2017-09-21] MEDS: POTASSIUM CHLOR 20 MEQ PREMIX 100 ML IV SCH ×2 (20:17→21:00)
--- NOTE | 2017-09-21 20:18 | RADRPT ---
EXAM DATE/TIME: 09/21/2017 20:04 [facility] COMPARISON: CHEST SINGLE AP, March 05, 2017, 12:27. INDICATIONS : Evaluate for pneumothorax, pneumonia or communicable diseases. Pre-op for left arm abscess draining. MEDICAL HISTORY : Hypertension. MRSA. Abscess. IV drug user. SURGICAL HISTORY : Hand surgery. ENCOUNTER: Initial ACUITY: 1 day PAIN SCORE: 0/10 LOCATION: Bilateral chest FINDINGS: A single view of the chest demonstrates a heart size borderline enlarged. Minimal basilar atelectasis . No effusion or pneumothorax. Mildly tortuous aorta. CONCLUSION: 1. Minimal basilar atelectasis. No focal consolidation or effusion. Geoff Whitlock MD on September 21, 2017 at 20:15 Board Certified Radiologist. This report was verified electronically.
[2017-09-21] MEDS ORDERED: NEOMYCIN/POLYMYXIN 1 ML G.U. IRRIGANT ONE (20:23)
[2017-09-21] MEDS ORDERED: ONDANSETRON HCL 4 MG/2 ML VIAL IVP PRN (20:30)
[2017-09-21] MEDS ORDERED: MAGNESIUM HYDROXIDE SUSP 30 ML CUP PO PRN (20:30)
[2017-09-21] MEDS ORDERED: SENNOSIDES 8.6 MG TAB PO PRN (20:30)
[2017-09-21] MEDS ORDERED: BISACODYL 10 MG SUPP RECTAL PRN (20:30)
[2017-09-21] MEDS ORDERED: ACETAMINOPHEN 325 MG TAB PO PRN (20:30)
[2017-09-21] MEDS ORDERED: Vancomycin Consult Pharmacy 1 EA OTHER SCH (20:30)
[2017-09-21] MEDS ORDERED: SODIUM CHLORIDE 0.9% FLUSH 10 ML FLUSH IV FLUSH PRN (20:30)
[2017-09-21] MEDS ORDERED: NALOXONE HCL 0.4 MG/ML AMP IV PUSH PRN (20:30)
[2017-09-21] MEDS: SODIUM CHLORIDE 0.9% FLUSH 10 ML FLUSH IV FLUSH SCH (21:00)
[2017-09-21 21:09] LABS: INTERNATIONAL NORMALIZED RATIO 1.1 RATIO; PROTHROMBIN TIME - PATIENT 10.7 SEC (9.8-11.6)
[2017-09-21] MEDS ORDERED: DO NOT ADM ANY ANTICOAGULANT DRUGS PRN (22:00)
--- NOTE | 2017-09-21 22:01 | HHI.HP ---
[facility] No Primary Care Physician Admission Diagnosis Bilateral antecubital abscess, IVDA, hypokalemia, HTN Diagnoses: Travel History International Travel<30 Days: No Contact w/Intl Traveler <30 Da: No Traveled to Known Affected Are: No History of Present Illness 47-year-old male with a past medical history significant for IV drug abuse and endocarditis/cellulitis presents to the emergency department for evaluation of bilateral forearm abscesses. The patient was last treated for endocarditis/ cellulitis in February 2017 where blood cultures grew group a beta-hemolytic strep. The patient left AMA prior to the arrangement of [place] infusions. He returns to the emergency department today complaining of bilateral antecubital abscesses that he has had for approximately 1 week. He endorses subjective fever/chills. Has no other complaints. Denies chest pain. Denies shortness of breath. No abdominal pain. No nausea/vomiting/diarrhea. Reports his last IV use was 3 weeks ago. Review of Systems Except as stated in HPI: all other systems reviewed are Neg Past Family Social History Past Medical History IV drug abuse Hypertension History of endocarditis Past Surgical History Left arm I&D Reported Medications Reported Meds & Active Scripts Active No Active Prescriptions or Reported Medications Allergies: Coded Allergies: *MDRO Multi-Drug Resistant Organism (Verified Adverse Reaction, Unknown, ) MRSA (arm)-07/10/16 Family History Negative for CAD/DM Social History Occasional tobacco. Denies alcohol. He endorses marijuana. Uses IV Dilaudid, last use approximately 3 weeks ago. Physical Exam Vital Signs Vital Signs Date Time Temp Pulse Resp B/P (MAP) Pulse Ox O2 Delivery O2 Flow Rate FiO2 09/21/17 21:03 09/21/17 19:08 95 Room Air 09/21/17 19:08 57 18 96 Room Air 09/21/17 19:08 57 16 198/113 (141) 96 Room Air 09/21/17 16:02 98.9 72 16 174/89 (117) 99 Physical Exam GENERAL: male lying in bed SKIN: Bilateral antecubital abscesses with surrounding erythema, left greater than right. Fluctuance surrounding left abscess. Erythema extends down the left forearm. HEAD: Atraumatic. Normocephalic. No temporal or scalp tenderness. EYES: Pupils equal round and reactive. Extraocular motions intact. No scleral icterus. No injection or drainage. ENT: Nose without bleeding, purulent drainage or septal hematoma. Throat without erythema, tonsillar hypertrophy or exudate. Uvula midline. Airway patent. NECK: Trachea midline. No JVD or lymphadenopathy. Supple, nontender, no meningeal signs. CARDIOVASCULAR: Regular rate and rhythm without murmurs, gallops, or rubs. RESPIRATORY: Clear to auscultation. Breath sounds equal bilaterally. No wheezes , rales, or rhonchi. GASTROINTESTINAL: Abdomen soft, non-tender, nondistended. No hepato-splenomegaly , or palpable masses. No guarding. MUSCULOSKELETAL: Extremities without clubbing, cyanosis, or edema. No joint tenderness, effusion, or edema noted. No calf tenderness. NEUROLOGICAL: Awake and alert. Cranial nerves II through XII intact. Motor and sensory grossly within normal limits. Normal speech. Laboratory Laboratory Tests Test 09/21/17 17:17 09/21/17 20:21 White Blood Count 14.4 Red Blood Count 4.54 Hemoglobin 12.6 Hematocrit 37.5 Mean Corpuscular Volume 82.6 Mean Corpuscular Hemoglobin 27.8 Mean Corpuscular Hemoglobin Concent 33.6 Red Cell Distribution Width 15.1 Platelet Count 235 Mean Platelet Volume 8.5 Neutrophils (%) (Auto) 73.2 Lymphocytes (%) (Auto) 16.9 Monocytes (%) (Auto) 6.9 Eosinophils (%) (Auto) 2.4 Basophils (%) (Auto) 0.6 Neutrophils # (Auto) 10.5 Lymphocytes # (Auto) 2.4 Monocytes # (Auto) 1.0 Eosinophils # (Auto) 0.3 Basophils # (Auto) 0.1 CBC Comment DIFF FINAL Differential Comment Blood Urea Nitrogen 10 Creatinine 1.12 Random Glucose 77 Total Protein 7.7 Albumin 2.9 Calcium Level 8.3 Alkaline Phosphatase 72 Aspartate Amino Transf (AST/SGOT) 22 Alanine Aminotransferase (ALT/SGPT) 21 Total Bilirubin 0.3 Sodium Level 135 Potassium Level 2.8 Chloride Level 98 Carbon Dioxide Level 29.5 Anion Gap 8 Estimat Glomerular Filtration Rate 70 Lactic Acid Level 0.7 B-Type Natriuretic Peptide 215 Prothrombin Time 10.7 Prothromb Time International Ratio 1.1 Activated Partial Thromboplast Time 30.3 Date/Time Source Procedure Growth Status 09/21/17 17:17 Blood Peripheral Aerobic Blood Culture Pending Received 09/21/17 17:17 Blood Peripheral Anaerobic Blood Culture Pending Received 09/21/17 19:21 Wound Arm Gram Stain Pending Received 09/21/17 19:21 Wound Arm Wound Culture Pending Received Result Diagram: 09/21/17 1717 09/21/17 1717 Caprini VTE Risk Assessment Caprini VTE Risk Assessment: No/Low Risk (score <= 1) Caprini Risk Assessment Model Point Value = 1 Point Value = 2 Point Value = 3 Point Value = 5 Age 41-60 Minor surgery BMI > 25 kg/m2 Swollen legs Varicose veins or History of unexplained or recurrent spontaneous Oral contraceptives or hormone replacement Sepsis (< 1 month) Serious lung disease, including pneumonia (< 1 month) Abnormal pulmonary function Acute myocardial infarction Congestive heart failure (< 1 month) History of inflammatory bowel disease Medical patient at bed rest Age 61-74 Arthroscopic surgery Major open surgery (> 45 min) Laparoscopic surgery (> 45 min) Malignancy Confined to bed (> 72 hours) Immobilizing plaster cast Central venous access Age >= 75 History of VTE Family history of VTE Factor V Leiden Prothrombin [id number] Lupus anticoagulant Anticardiolipin antibodies Elevated serum homocysteine Heparin-induced thrombocytopenia Other congenital or acquired thrombophilia Stroke (< 1 month) Elective arthroplasty Hip, pelvis, or leg fracture Acute spinal cord injury (< 1 month) Prophylaxis Regimen Total Risk Factor Score Risk Level Prophylaxis Regimen 0-1 Low Early ambulation 2 Moderate Order ONE of the following: *Sequential Compression Device (SCD) *Heparin 5000 units SQ BID 3-4 Higher Order ONE of the following medications: *Heparin 5000 units SQ TID *Enoxaparin/Lovenox 40 mg SQ daily (WT < 150 kg, CrCl > 30 mL/min) *Enoxaparin/Lovenox 30 mg SQ daily (WT < 150 kg, CrCl > 10-29 mL/min) *Enoxaparin/Lovenox 30 mg SQ BID (WT < 150 kg, CrCl > 30 mL/min) AND/OR *Sequential Compression Device (SCD) 5 or more Highest Order ONE of the following medications: *Heparin 5000 units SQ TID (Preferred with Epidurals) *Enoxaparin/Lovenox 40 mg SQ daily (WT < 150 kg, CrCl > 30 mL/min) *Enoxaparin/Lovenox 30 mg SQ daily (WT < 150 kg, CrCl > 10-29 mL/min) *Enoxaparin/Lovenox 30 mg SQ BID (WT < 150 kg, CrCl > 30 mL/min) AND *Sequential Compression Device (SCD) Assessment and Plan Assessment and Plan Assessment/plan: 1. Bilateral antecubital abscesses Hand surgery consulted, appreciate assistance Zosyn/vancomycin Blood cultures pending Wound cultures pending Tailer antibiotics once cultures result Echo pending out of concerns for endocarditis/bacteremia 2. Hypokalemia Calcium 2.8 Status post IV replacement Monitor BMP 3. Hypertension Vasotec when necessary Patient not currently on any home medications 4. IV drug abuse Cessation counseling provided FEN NPO NS at 100 cc/hr Electrolytes: As above Physician Certification 2 Midnight Certification Type: Admission for Inpatient Services Order for Inpatient Services The services are ordered in accordance with Medicare regulations or non- Medicare payer requirements, as applicable. In the case of services not specified as inpatient-only, they are appropriately provided as inpatient services in accordance with the 2-midnight benchmark. Estimated LOS (days): 2 2 days is the estimated time the patient will need to remain in the hospital, assuming treatment plan goals are met and no additional complications. Post-Hospital Plan: Not yet determined Joyce Chang MD Sep 21, 2017 22:01
[2017-09-21] MEDS ORDERED: *MEPERIDINE 25 MG INJ VIAL PERIprocedural Use ONLY ONE (22:15)
[2017-09-21] MEDS ORDERED: *morphine SULFATE 4 MG/ML PERIprocedure ONLY ONE (22:15)
[2017-09-21] MEDS ORDERED: ENALAPRILAT 1.25 MG/ML VIAL ONE (22:33)
[2017-09-21] MEDS: SODIUM CHLOR 0.9% 1000 ML INJ 1,000 ML IV SCH (22:45)
[2017-09-21] MEDS: HYDROmorphone HCL PF 2 MG/ML VIAL IV PRN (22:56)
[2017-09-21] MEDS ORDERED: POTASSIUM CHLORIDE 20 MEQ CONTROLLED RELEASE TAB PO ONE (23:00)
[2017-09-22] MEDS: IBUPROFEN 800 MG TAB PO PRN
[2017-09-22] MEDS: ACETAMINOPHEN/HYDROcodone 325 MG/5 MG TAB PO PRN ×3 (00:16→18:21)
[2017-09-22] MEDS: PIPERACIL-TAZO 3.375 GM PREMIX 50 ML IV SCH ×5 (02:00→20:34)
[2017-09-22] MEDS: HYDROmorphone HCL PF 2 MG/ML VIAL IV PRN ×3 (02:01→20:32)
[2017-09-22 05:50] LABS: AUTOMATED NEUTROPHIL # 8.5 TH/MM3 (1.8-7.7); BASOPHIL # 0.1 TH/MM3 (0-0.2); EOSINOPHIL # 0.4 TH/MM3 (0-0.4); EOSINOPHIL % 3.3 % (0.0-4.0); HEMOGLOBIN 11.3 GM/DL (13.0-17.0); LYMPH % 20.8 % (9.0-44.0); LYMPHOCYTE # 2.6 TH/MM3 (1.0-4.8); MEAN CORPUSCULAR HEMOGLOBIN 27.3 PG (27.0-34.0); MEAN CORPUSCULAR HGB CONC 33.4 % (32.0-36.0); MEAN PLATELET VOLUME 8.1 FL (7.0-11.0); MONO % 6.8 % (0.0-8.0); MONOCYTE # 0.8 TH/MM3 (0-0.9); NEUT % 68.1 % (16.0-70.0); PLATELET COUNT 227 TH/MM3 (150-450); RED BLOOD COUNT 4.15 MIL/MM3 (4.50-5.90); RED CELL DISTRIBUTION WIDTH 15.1 % (11.6-17.2); WHITE BLOOD COUNT 12.5 TH/MM3 (4.0-11.0)
[2017-09-22 06:00] VITALS: BP 123/59; PULSE 55; RESP 16; TEMP 97.4; O2SAT 100
[2017-09-22 06:29] LABS: BICARBONATE 28.6 MEQ/L (21.0-32.0); CALCIUM 8.1 MG/DL (8.5-10.1); CREATININE 1.27 MG/DL (0.60-1.30)
[2017-09-22] MEDS: SODIUM CHLORIDE 0.9% FLUSH 10 ML FLUSH IV FLUSH SCH ×2 (07:30→20:44)
[2017-09-22] MEDS: SODIUM CHLOR 0.9% 1000 ML INJ 1,000 ML IV SCH ×3 (08:01→20:44)
[2017-09-22] MEDS: VANCOMYCIN 1,000 MG/NS 250 ML IV SCH ×4 (08:02→20:44)
--- NOTE | 2017-09-22 08:12 | HHI.PR ---
Subjective Remarks in no acute distress. afebrile. had surgery earlier this morning. pain is fairly controlled. no other complaints. Objective Vitals Vital Signs Date Time Temp Pulse Resp B/P (MAP) Pulse Ox O2 Delivery O2 Flow Rate FiO2 09/22/17 06:00 97.4 55 16 123/59 (80) 100 09/22/17 04:00 97.6 47 14 140/78 (98) 96 Room Air 09/22/17 03:00 49 16 153/78 (103) 97 Room Air 09/22/17 02:01 55 11 159/81 (107) 97 Room Air 09/22/17 01:00 55 16 166/80 (108) 97 Room Air 09/22/17 00:00 98.3 62 18 174/91 (118) 98 Room Air 09/21/17 23:48 20 09/21/17 23:30 63 23 170/87 (114) 98 Nasal Cannula 2 09/21/17 23:00 98.6 68 19 172/92 (118) 99 Nasal Cannula 2 09/21/17 22:45 70 24 154/93 (113) 97 Nasal Cannula 2 09/21/17 22:30 66 19 191/120 (143) 98 Nasal Cannula 2 09/21/17 22:15 67 14 181/117 (138) 100 Nasal Cannula 2 09/21/17 22:00 65 20 204/100 (134) 100 Simple Mask 10 09/21/17 21:54 98.0 67 17 183/89 (120) 98 Simple Mask 10 09/21/17 21:03 09/21/17 19:08 95 Room Air 09/21/17 19:08 57 18 96 Room Air 09/21/17 19:08 57 16 198/113 (141) 96 Room Air 09/21/17 16:02 98.9 72 16 174/89 (117) 99 I/O 09/21/17 09/21/17 09/21/17 09/22/17 09/22/17 09/22/17 07:00 15:00 23:00 07:00 15:00 23:00 Intake Total 1350 ml 1467 ml Output Total 10 ml 1250 ml Balance 1340 ml 217 ml Intake Oral 0 ml 684 ml IV Total 750 ml 783 ml Other 600 ml Output Urine Total 0 ml 1250 ml Estimated Blood Loss 10 ml Result Diagram: 09/22/17 0437 09/22/17 0437 Imaging Last Impressions Chest X-Ray 09/21/171953 Signed Impressions: Service Date/Time: Thursday, September 21, 2017 20:04 - CONCLUSION: 1. Minimal basilar atelectasis. No focal consolidation or effusion. Geoff Whitlock MD Objective Remarks GENERAL: This is a well-nourished, well-developed patient, in no apparent distress. CARDIOVASCULAR: Regular rate and regular rhythm without murmurs, gallops, or rubs. RESPIRATORY: Clear to auscultation. Breath sounds equal bilaterally. No wheezes , rales, or rhonchi. GASTROINTESTINAL: Abdomen soft, non-tender, nondistended. Normal, active bowel sounds MUSCULOSKELETAL: both upper extremities covered with clean dressing. NEURO: Alert & Oriented x4 to person, place, time, situation. Moves all ext x4 Procedures I/D of both elbows. Medications and IVs Inpatient Medications Acetaminophen (Tylenol) 650 mg Q4H PRN PO TEMP > 100.4/pain 1 - 4; Start at 20:30 Acetaminophen/ Hydrocodone Bitart ([place] 5-325 Mg) 2 tab Q8H PRN PO PAIN > 5 Last administered on 09/22/17at 00:16; Start 09/21/17 at 22:15 Bisacodyl (Dulcolax Supp) 10 mg DAILY PRN RECTAL SEVERE CONSITIPATION; Start at 20:30 Enalaprilat (Vasotec Inj) 2.5 mg Q6H PRN IV PUSH SBP>160, DBP>90; Start at 22:00 Hydralazine HCl (Apresoline Inj) 10 mg ONCE ONCE IV PUSH Last administered on 09/21/17at 19:19; Start 09/21/17 at 19:00; Stop 09/21/17 at 19:01; Status DC Hydromorphone HCl (Dilaudid Pf Inj) 1 mg Q3H PRN IV PAIN SCALE GREATER THAN 4 Last administered on 09/22/17at 02:01; Start 09/21/17 at 20:30 Ibuprofen (Motrin) 800 mg Q12H PRN PO PAIN > 1 Last administered on 09/22/17at 00 :00; Start 09/21/17 at 22:15 Magnesium Hydroxide (Milk Of Eduarda Payne) 30 ml Q12H PRN PO Mild constipation ; Start 09/21/17 at 20:30 Miscellaneous Information ALL NURSING DEPARTME... UNSCH PRN .XX SEE LABEL COMMENTS; Start 09/21/17 at 22:00; Stop 09/22/17 at 21:59 Naloxone HCl (Narcan Inj) 0.4 mg UNSCH PRN IV PUSH SEE LABEL COMMENTS; Start at 20:30 Ondansetron HCl (Zofran Inj) 4 mg Q6H PRN IVP NAUSEA OR VOMITING; Start at 20:30 Pharmacy Profile Note 0 ml @ 0 mls/hr UNSCH OTHER ; Start 09/21/17 at 20:30 Piperacillin Sod/ Tazobactam Sod 50 ml @ 100 mls/hr Q6H IV Last administered on 09/22/17at 02:00; Start 09/22/17 at 02:00 Potassium Chloride (KCl) 40 meq ONCE ONCE PO Last administered on 09/21/17at 23: 40; Start 09/21/17 at 23:00; Stop 09/21/17 at 23:01; Status DC Sennosides (Senokot) 17.2 mg Q12H PRN PO Moderate constipation; Start 09/21/17 at 20:30 Sodium Chloride (NS Flush) 2 ml BID IV FLUSH ; Start 09/21/17 at 21:00 Vancomycin HCl 1000 mg/Sodium Chloride 250 ml @ 250 mls/hr Q12H IV ; Start 09/22 at 08:00 A/P Assessment and Plan A/P 1. Bilateral antecubital abscesses Hand surgery consulted- s/p I/D continue Zosyn/vancomycin Blood cultures pending Wound cultures pending Tailer antibiotics once cultures resulted Echo pending out of concerns for endocarditis/bacteremia 2. Hypokalemia will replace Monitor BMP 3. Hypertension Vasotec when necessary Patient not currently on any home medications 4. IV drug abuse Cessation counseling provided Yoly Rico MD Sep 22, 2017 08:12
[2017-09-22] MEDS ORDERED: POTASSIUM CHLORIDE 10 MEQ CONTROLLED RELEASE TAB PO ONE ×3 (08:15→16:00)
[2017-09-22 08:19] VITALS: PULSE 58
--- NOTE | 2017-09-22 08:38 | MB ---
cc: Karri De La Rosa MD DATE: 09/21/2017 HISTORY OF PRESENT ILLNESS: The patient is a 47-year-old white male seen in the emergency room because of bilateral antecubital and bilateral forearm abscesses going on approximately a week. He does inject IV drugs. The patient has had problems like this before, the last time being February. He denies taking any medications. PAST MEDICAL HISTORY: High blood pressure, immune disorder. PAST SURGICAL HISTORY: Upper extremity surgery for infection. SOCIAL HISTORY: Tobacco use? Yes. Substance use? Yes. Denies alcohol use. ALLERGIES: NO KNOWN DRUG ALLERGIES. MEDICATIONS: No active medications at home. REVIEW OF SYSTEMS: As stated in the HPI. The patient is not complaining of any headaches, blurry or double vision. He is not complaining of any cough, wheeze or shortness of breath. He does not complain of any chest pain or palpitations. He does not complain of any nausea, vomiting or abdominal pain. He is not complaining of any burning, frequency or urgency with urination. He is not complaining of spine neck or back pain. He is not complaining of any weakness or numbness or tingling. He is not complaining of any anxiety, depression or suicidal ideations. IMAGING: Chest x-ray was done. This reveals minimal basilar atelectasis. No focal consolidation or effusion. VITAL SIGNS: Temperature is 98.9, heart rate 57, blood pressure is 198/113, pulse oximetry 95-96% on room air. LABORATORY DATA: White blood cell count is 14.4, hemoglobin is 12.6 g/dL, platelet count is 235,000, BUN and creatinine 10 and 1.12. The patient had potassium replaced for hypokalemia. Albumin is 2.9. PHYSICAL EXAMINATION: GENERAL: Well-developed, well-nourished, no apparent distress, resting comfortably in his bed. HEENT: Normocephalic, atraumatic. Pupils equal and round. PULMONARY: Respiratory effort is normal. SKIN, MUSCULOSKELETAL: Normal in its appearance and temperature, with the exception of his bilateral arms and forearms, around the elbow and the distal half of his forearms, as these have multiple abscesses. The ones that are at or just distal to the antecubital fossa bilaterally are large and obviously fluctuant, with erythema and cellulitis. He has 2 along the cephalic veins and the distal half of his forearms bilaterally, which are 3 cm each, the ones at the antecubital fossa being 8-10 cm each. Capillary refill is less than 2 seconds in all fingertips. There is no crepitance or subcutaneous emphysema anywhere. There is no drainage. He is able to move both hands and all of his fingers. IMPRESSION: Bilateral arm and forearm abscesses, deep soft tissue infection. PLAN: Go to the operating room for incision and drainage of all 4 of these. The patient indicates he understands and agrees and requests that we proceed. MD ALYSON Barber/WILBERT , 10:08 PM , 10:53 PM
--- NOTE | 2017-09-22 08:44 | MP ---
cc: Karri De La Rosa MD DATE OF OPERATION: 09/21/2017 POSTOPERATIVE DIAGNOSIS: Bilateral upper extremity multiple large abscess. PROCEDURES PERFORMED: 1. Incision and drainage large abscess, left arm/forearm, near the antecubital fossa. 2. Incision and drainage, left forearm abscess. 3. Incision and drainage, right arm/forearm abscess, near the antecubital fossa. 4. Incision and drainage of right forearm abscess. SURGEON: Karri De La Rosa MD DESCRIPTION OF PROCEDURE: The patient was brought to the operating room and was placed supine on the operating table. After the correct site and side of surgery were verified, members of each team in the room multiple times and after adequate general anesthesia was achieved, the bilateral upper extremities were prepped and draped in traditional sterile surgical fashion. The left upper extremity was addressed first. It was elevated with pressure held on the brachial artery for a minute and an axillary tourniquet inflated, which was held in place, well padded, was inflated to 200 mmHg for a total of approximately 15 minutes. A large area of devitalized skin just distal to the antecubital fossa was excised with a Bovie. A large amount of purulent drainage was then encountered and suctioned off the field. This was sampled and passed off the field as a culture. It did go into the deep subcutaneous tissue, but not into any joints or deep to the fascia. All devitalized tissue was excised sharply and with cautery. A liter's worth of saline irrigation was then used to flush out the wound. It was packed with 1 inch iodoform packing. Attention was then paid to the left distal forearm, over the cephalic vein, where a 3 cm abscess was identified and entered sharply and debrided sharply, irrigated and then packed with 1 inch iodoform packing. The axillary tourniquet was released prior to the packing of either of the wounds and there was no evidence of any active bleeding, only oozing, which was easily controlled with gentle pressure. The hand and arm were thoroughly cleansed and dried. Bulky soft dressing was applied. The hand was soft pink, warm and brisk capillary refill less than 2 seconds. Attention was then paid to the right upper extremity, where an almost mirror image procedure was performed on the right arm/forearm antecubital abscess and the right without forearm cephalic vein abscess. Both hands were soft, pink and warm. Hemostasis was present. The patient was awakened from anesthesia and transferred to the Postanesthesia Care Unit awake and in stable condition at the end of the case. MD ALYSON Barber/WILBERT , 10:12 PM , 11:02 PM
[2017-09-22 12:00] VITALS: BP 186/98; PULSE 52; RESP 18; TEMP 97.5; O2SAT 97
[2017-09-22 12:04] VITALS: PULSE 44
--- NOTE | 2017-09-22 16:09 | EKG ---
Date Performed: 09/21/2017 Time Performed: 20:00:42 PTAGE: 47 years EKG: Sinus rhythm WITH OCCASIONAL SUPRAVENTRICULAR PREMATURE COMPLEXES POSSIBLE RIGHT VENTRICULAR CONDUCTION DELAY LEF T VENTRICULAR HYPERTROPHY AND ST-T CHANGE ABNORMAL ECG PREVIOUS TRACING : 04/02/2015 21.55 Voltage has increased signficantly since prior tracing. Cli nical correlation is recommended. DOCTOR: Mando Coello Interpretating Date/Time 09/22/2017 16:07:36
--- NOTE | 2017-09-22 17:07 | ECHRPT ---
Indication: SEPSIS CONCLUSIONS The left ventricular systolic function is low normal with an estimated ejection fraction in the rang e of 50- 55%. Moderate concentric left ventricular hypertrophy. Trace aortic valve regurgitation. There is trace tricuspid valve regurgitation. BP: 123 / 59 HR: 55 Rhythm: Sinus MEASUREMENTS (Male / Female) Normal Values Technical Quality:Fair 2D ECHO LV Diastolic Diameter PLAX 4.1 cm 4.2 - 5.9 / 3.9 - 5.3 cm LV Systolic Diameter PLAX 3.4 cm IVS Diastolic Thickness 2.0 cm 0.6 - 1.0 / 0.6 - 0.9 cm LVPW Diastolic Thickness 1.8 cm 0.6 - 1.0 / 0.6 - 0.9 cm LV Relative Wall Thickness 0.9 RV Internal Dim ED PLAX 3.1 cm LVOT Diameter 2.2 cm LA Systolic Diameter LX 2.2 cm 3.0 - 4.0 / 2.7 - 3.8 cm LV Ejection Fraction MOD 4C 56.8 % LV Cardiac Index MOD 4C 2956.1 cm/minm LV Ejection Fraction 4C AL 60.7 % LV Cardiac Index 4C AL 3298.2 cm/minm M-MODE Aortic Root Diameter MM 2.9 cm AV Cusp Separation MM 2.1 cm DOPPLER AV Peak Velocity 141.0 cm/s AV Peak Gradient 8.0 mmHg LVOT Peak Velocity 108.0 cm/s LVOT Peak Gradient 4.7 mmHg AV Area Cont Eq pk 2.9 cm MV Area PHT 5.8 cm Mitral E Point Velocity 76.5 cm/s Mitral A Point Velocity 85.4 cm/s Mitral E to A Ratio 0.9 LV E' Lateral Velocity 7.8 cm/s Mitral E to LV E' Lateral Ratio 9.8 LV E' Septal Velocity 5.8 cm/s Mitral E to LV E' Septal Ratio 13.3 PV Peak Velocity 88.2 cm/s PV Peak Gradient 3.1 mmHg FINDINGS LEFT VENTRICLE The left ventricular systolic function is low normal with an estimated ejection fraction in the rang e of 50- 55%. Normal left ventricular size. Moderate concentric left ventricular hypertrophy. No regional wall motion abnormalities are present. RIGHT VENTRICLE Normal right ventricular size and systolic function. LEFT ATRIUM The left atrial size is normal. RIGHT ATRIUM The right atrial size is normal. ATRIAL SEPTUM Normal atrial septal thickness AORTA The aortic root and proximal ascending aorta are normal in size on limited imaging. MITRAL VALVE Grossly normal mitral valve. No mitral valve stenosis or regurgitation. AORTIC VALVE Trileaflet aortic valve. Trace aortic valve regurgitation. No aortic valve stenosis. TRICUSPID VALVE Structurally normal tricuspid valve. There is trace tricuspid valve regurgitation. No tricuspid valve stenosis. PULMONARY VALVE The pulmonary valve is not well visualized. VESSELS The inferior vena cava is normal in size. PERICARDIUM No pericardial effusion. Lisandro Fiore DO (Electronically Signed) Final Date:22 September 2017 17:06
[2017-09-22 17:55] VITALS: O2SAT 97
[2017-09-22 20:00] VITALS: BP 185/97; PULSE 61; RESP 19; TEMP 97.4; O2SAT 98
[2017-09-22] MEDS: ENALAPRILAT 2.5 MG/2 ML VIAL IV PUSH PRN (20:30)
[2017-09-23] VITALS (7 sets, daily range): BP systolic 164–205; BP diastolic 84–98; PULSE 46–59; RESP 17–18; TEMP 97–97.8; O2SAT 97–100
[2017-09-23] MEDS: HYDROmorphone HCL PF 2 MG/ML VIAL IV PRN ×4 (00:20→11:36)
[2017-09-23] MEDS: PIPERACIL-TAZO 3.375 GM PREMIX 50 ML IV SCH ×4 (02:04→20:55)
[2017-09-23] MEDS: ACETAMINOPHEN/HYDROcodone 325 MG/5 MG TAB PO PRN ×3 (02:05→18:51)
[2017-09-23] MEDS ORDERED: PHARMACY ORDERED LAB ONE (07:45)
[2017-09-23] MEDS: VANCOMYCIN 1,000 MG/NS 250 ML IV SCH ×4 (08:17→20:55)
[2017-09-23 08:35] LABS: AUTOMATED NEUTROPHIL # 4.9 TH/MM3 (1.8-7.7); BASOPHIL # 0.1 TH/MM3 (0-0.2); BASOPHIL % 0.9 % (0.0-2.0); EOSINOPHIL # 0.5 TH/MM3 (0-0.4); HEMATOCRIT 34.8 % (39.0-51.0); HEMOGLOBIN 11.7 GM/DL (13.0-17.0); LYMPH % 25.5 % (9.0-44.0); MEAN CELL VOLUME 82.9 FL (80.0-100.0); MEAN CORPUSCULAR HEMOGLOBIN 27.9 PG (27.0-34.0); MEAN CORPUSCULAR HGB CONC 33.6 % (32.0-36.0); MEAN PLATELET VOLUME 8.5 FL (7.0-11.0); MONO % 6.8 % (0.0-8.0); MONOCYTE # 0.5 TH/MM3 (0-0.9); NEUT % 60.8 % (16.0-70.0); PLATELET COUNT 239 TH/MM3 (150-450); RED CELL DISTRIBUTION WIDTH 15.2 % (11.6-17.2)
[2017-09-23] MEDS: SODIUM CHLORIDE 0.9% FLUSH 10 ML FLUSH IV FLUSH SCH ×2 (09:00→20:59)
[2017-09-23 09:05] LABS: BICARBONATE 27.6 MEQ/L (21.0-32.0); CALCIUM 8.2 MG/DL (8.5-10.1); CREATININE 1.17 MG/DL (0.60-1.30)
[2017-09-23 09:10] LABS: VANCOMYCIN TROUGH 16.4 MCG/ML (5.0-10.0)
[2017-09-23] MEDS: ENALAPRILAT 2.5 MG/2 ML VIAL IV PUSH PRN ×2 (09:32→17:00)
--- NOTE | 2017-09-23 11:42 | HHI.PR ---
Subjective Remarks in no acute distress. complaining of pain to both hands. no fever. no other complaints. d/w the RN. Objective Vitals Vital Signs Date Time Temp Pulse Resp B/P (MAP) Pulse Ox O2 Delivery O2 Flow Rate FiO2 09/23/17 08:00 97.0 46 18 164/84 (110) 97 09/23/17 00:00 97.6 52 17 184/97 (126) 99 09/22/17 20:00 97.4 61 19 185/97 (126) 98 09/22/17 17:55 97 21 09/22/17 12:04 44 09/22/17 12:00 97.5 52 18 186/98 (127) 97 I/O 09/22/17 09/22/17 09/22/17 09/23/17 09/23/17 09/23/17 07:00 15:00 23:00 07:00 15:00 23:00 Intake Total 1467 ml 1020 ml 480 ml 300 ml Output Total 1250 ml Balance 217 ml 1020 ml 480 ml 300 ml Intake Oral 684 ml 720 ml 480 ml IV Total 783 ml 300 ml 300 ml Output Urine Total 1250 ml # Voids 3 2 # Bowel Movements 0 Result Diagram: 09/23/17 0654 09/23/17 0654 Imaging Last Impressions Chest X-Ray 09/21/171953 Signed Impressions: Service Date/Time: Thursday, September 21, 2017 20:04 - CONCLUSION: 1. Minimal basilar atelectasis. No focal consolidation or effusion. Geoff Whitlock MD Objective Remarks GENERAL: This is a well-nourished, well-developed patient, in no apparent distress. CARDIOVASCULAR: Regular rate and regular rhythm without murmurs, gallops, or rubs. RESPIRATORY: Clear to auscultation. Breath sounds equal bilaterally. No wheezes , rales, or rhonchi. GASTROINTESTINAL: Abdomen soft, non-tender, nondistended. Normal, active bowel sounds MUSCULOSKELETAL: both upper extremities covered with clean dressing. NEURO: Alert & Oriented x4 to person, place, time, situation. Moves all ext x4 Procedures I/D of both elbows. Medications and IVs Inpatient Medications Acetaminophen (Tylenol) 650 mg Q4H PRN PO TEMP > 100.4/pain 1 - 4; Start at 20:30 Acetaminophen/ Hydrocodone Bitart ([place] 5-325 Mg) 2 tab Q8H PRN PO PAIN > 5 Last administered on 09/23/17at 10:16; Start 09/21/17 at 22:15 Bisacodyl (Dulcolax Supp) 10 mg DAILY PRN RECTAL SEVERE CONSITIPATION; Start at 20:30 Enalaprilat (Vasotec Inj) 2.5 mg Q6H PRN IV PUSH SBP>160, DBP>90 Last administered on 09/23/17at 09:32; Start 09/21/17 at 22:00 Hydralazine HCl (Apresoline Inj) 10 mg ONCE ONCE IV PUSH Last administered on 09/21/17at 19:19; Start 09/21/17 at 19:00; Stop 09/21/17 at 19:01; Status DC Hydromorphone HCl (Dilaudid Pf Inj) 1 mg Q3H PRN IV PAIN SCALE GREATER THAN 4 Last administered on 09/23/17at 06:54; Start 09/21/17 at 20:30 Ibuprofen (Motrin) 800 mg Q12H PRN PO PAIN > 1 Last administered on 09/22/17at 00 :00; Start 09/21/17 at 22:15 Magnesium Hydroxide (Milk Of Eduarda Linestor) 30 ml Q12H PRN PO Mild constipation ; Start 09/21/17 at 20:30 Miscellaneous Information SPECIFIC LAB TO BE DRAWN:VANCOMYCIN TROUGH DATE TO... ONCE ONCE .XX ; Start 09/25/17 at 07:45; Stop 09/25/17 at 07:46 Naloxone HCl (Narcan Inj) 0.4 mg UNSCH PRN IV PUSH SEE LABEL COMMENTS; Start at 20:30 Ondansetron HCl (Zofran Inj) 4 mg Q6H PRN IVP NAUSEA OR VOMITING; Start at 20:30 Pharmacy Profile Note 0 ml @ 0 mls/hr UNSCH OTHER ; Start 09/21/17 at 20:30 Piperacillin Sod/ Tazobactam Sod 50 ml @ 100 mls/hr Q6H IV Last administered on 09/23/17at 07:35; Start 09/22/17 at 02:00 Potassium Chloride (KCl) 40 meq ONCE ONCE PO ; Start 09/22/17 at 16:00; Stop 09/22/17 at 16:01; Status DC Sennosides (Senokot) 17.2 mg Q12H PRN PO Moderate constipation; Start 09/21/17 at 20:30 Sodium Chloride (NS Flush) 2 ml BID IV FLUSH Last administered on 09/23/17at 09: 00; Start 09/21/17 at 21:00 Vancomycin HCl 1000 mg/Sodium Chloride 250 ml @ 250 mls/hr Q12H IV Last administered on 09/23/17at 08:17; Start 09/22/17 at 08:00 A/P Assessment and Plan A/P 1. Bilateral antecubital abscesses Hand surgery consulted- s/p I/D continue Zosyn/vancomycin Blood cultures negative Wound culture with MRSA Echo with no vegetation. 2. Hypokalemia replaced. 3. Hypertension start on amlodipine Vasotec when necessary Patient not currently on any home medications 4. IV drug abuse Cessation counseling provided Discharge Planning possible discharge tomorrow- pending hand surgery recommendations and BP trend. Yoly Rico MD Sep 23, 2017 11:42
[2017-09-23] MEDS: SODIUM CHLOR 0.9% 1000 ML INJ 1,000 ML IV SCH ×2 (13:00→23:00)
--- NOTE | 2017-09-23 13:23 | PD.PSY.CON ---
Provisional Diagnosis Admission Date Sep 21, 2017 at 19:57 Pease I. Adjustment disorder with disturbance of conduct opioid dependence Pease II. 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 The patient was last treated for endocarditis/ cellulitis in February 2017 where blood cultures grew group a beta-hemolytic strep. The patient left AMA prior to the arrangement of [place] infusions. He returns to the emergency department today complaining of bilateral antecubital abscesses that he has had for approximately 1 week. Admitted due to bilateral antecubital abscesses. Hand surgery consulted- s/p I/D. Patient consulted to psychiatry due to agitation and aggressive behavior. However, today on psychiatric evaluation the patient is calm, cooperative and even pleasant. The patient reports that he feels much better, denies pain, denies distress. The patient reports okay mood, he says that he is coping "better than I thought" with hospitalization and the level of severity of his problem. He denies suicidal and was ideation, he denies visual and auditory hallucinations. patient is logical, he is coherent and relevant. He is completely oriented 3. No agitation, no aggressive behavior reported or observed at this moment or observed. Patient does report difficulty sleeping at night. Review of Systems Constitutional: DENIES: Diaphoretic episodes, Fatigue, Fever, Weight gain, Weight loss, Chills, Dizziness, Change in appetite, Night Sweats Endocrine: DENIES: Heat/cold intolerance, Polydipsia, Polyuria, Polyphagia Eyes: DENIES: Blurred vision, Diplopia, Eye inflammation, Eye pain, Vision loss , Photosensitivity, Double Vision Ears, nose, mouth, throat: DENIES: Tinnitus, Hearing loss, Vertigo, Nasal discharge, Oral lesions, Throat pain, Hoarseness, Ear Pain, Running Nose, Epistaxis, Sinus Pain, Toothache, Odynophagia Respiratory: DENIES: Apneas, Cough, Snoring, Wheezing, Hemoptysis, Sputum production, Shortness of breath Cardiovascular: DENIES: Chest pain, Palpitations, Syncope, Dyspnea on Exertion , PND, Lower Extremity Edema, Orthopnea, Claudication Gastrointestinal: DENIES: Abdominal pain, Black stools, Bloody stools, Constipation, Diarrhea, Nausea, Vomiting, Difficulty Swallowing, Anorexia Genitourinary: DENIES: Sexual dysfunction, Urinary frequency, Urinary incontinence, Urgency, Hematuria, Dysuria, Nocturia, Penile Discharge, Testicular Pain, Testicular Swelling Musculoskeletal: DENIES: Joint pain, Muscle aches, Stiffness, Joint Swelling, Back pain, Neck pain Integumentary: DENIES: Abnormal pigmentation, Nail changes, Pruritus, Rash Hematologic/lymphatic: DENIES: Bruising, Lymphadenopathy Immunologic/allergic: DENIES: Eczema, Urticaria Neurologic: DENIES: Abnormal gait, Headache, Localized weakness, Paresthesias, Seizures, Speech Problems, Tremor, Poor Balance Psychiatric: DENIES: Anxiety, Confusion, Mood changes, Depression, Hallucinations, Agitation, Suicidal Ideation, Homicidal Ideation, Delusions Past Family Social History Coded Allergies: No Known Allergies (Unverified , 09/21/17) No Active Prescriptions or Reported Meds Current Medications Medications (Trade) Dose Ordered Sig/Brennon Route Start Time Stop Time Status Last Admin (Dilaudid Pf Inj) 1 mg Q3H PRN IV 09/21/17 20:30 09/23/17 11:36 Piperacillin Sod/ Tazobactam Sod 50 ml @ 100 mls/hr Q6H IV 09/22/17 02:00 09/23/17 07:35 Pharmacy Profile Note 0 ml @ 0 mls/hr UNSCH OTHER 09/21/17 20:30 Sodium Chloride 1,000 ml @ 100 mls/hr Q10H IV 09/21/17 21:00 09/22/17 08:01 (NS Flush) 2 ml UNSCH PRN IV FLUSH 09/21/17 20:30 (NS Flush) 2 ml BID IV FLUSH 09/21/17 21:00 09/23/17 09:00 (Tylenol) 650 mg Q4H PRN PO 09/21/17 20:30 (Zofran Inj) 4 mg Q6H PRN IVP 09/21/17 20:30 (Narcan Inj) 0.4 mg UNSCH PRN IV PUSH 09/21/17 20:30 (Milk Of Magnesia Liq) 30 ml Q12H PRN PO 09/21/17 20:30 (Senokot) 17.2 mg Q12H PRN PO 09/21/17 20:30 (Dulcolax Supp) 10 mg DAILY PRN RECTAL 09/21/17 20:30 Vancomycin HCl 1000 mg/Sodium Chloride 250 ml @ 250 mls/hr Q12H IV 09/22/17 08:00 09/23/17 08:17 (Vasotec Inj) 2.5 mg Q6H PRN IV PUSH 09/21/17 22:00 09/23/17 09:32 ([place] 5-325 Mg) 2 tab Q8H PRN PO 09/21/17 22:15 09/23/17 10:16 (Motrin) 800 mg Q12H PRN PO 09/21/17 22:15 09/22/17 00:00 Miscellaneous Information SPECIFIC LAB TO BE DRAWN:VANCOMYCIN TROUGH DATE TO... 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 2) Verbal communication Physical Exam No tremors, no EPS, no psychomotor agitation or retardation Vital Signs Vital Signs Date Time Temp Pulse Resp B/P (MAP) Pulse Ox O2 Delivery O2 Flow Rate FiO2 09/23/17 08:00 97.0 46 18 164/84 (110) 97 09/22/17 17:55 21 09/22/17 04:00 Room Air 09/21/17 23:30 2 I/O 09/23/17 09/23/17 09/24/17 08:00 16:00 00:00 Intake Total 780 ml Balance 780 ml Lab Results Test 09/23/17 06:54 White Blood Count 8.0 TH/MM3 Red Blood Count 4.20 MIL/MM3 Hemoglobin 11.7 GM/DL Hematocrit 34.8 % Mean Corpuscular Volume 82.9 FL Mean Corpuscular Hemoglobin 27.9 PG Mean Corpuscular Hemoglobin Concent 33.6 % Red Cell Distribution Width 15.2 % Platelet Count 239 TH/MM3 Mean Platelet Volume 8.5 FL Neutrophils (%) (Auto) 60.8 % Lymphocytes (%) (Auto) 25.5 % Monocytes (%) (Auto) 6.8 % Eosinophils (%) (Auto) 6.0 % Basophils (%) (Auto) 0.9 % Neutrophils # (Auto) 4.9 TH/MM3 Lymphocytes # (Auto) 2.0 TH/MM3 Monocytes # (Auto) 0.5 TH/MM3 Eosinophils # (Auto) 0.5 TH/MM3 Basophils # (Auto) 0.1 TH/MM3 CBC Comment DIFF FINAL Differential Comment Blood Urea Nitrogen 12 MG/DL Creatinine 1.17 MG/DL Random Glucose 80 MG/DL Calcium Level 8.2 MG/DL Sodium Level 142 MEQ/L Potassium Level 3.7 MEQ/L Chloride Level 107 MEQ/L Carbon Dioxide Level 27.6 MEQ/L Anion Gap 7 MEQ/L Estimat Glomerular Filtration Rate 66 ML/MIN Vancomycin Level Trough 16.4 MCG/ML Date/Time Source Procedure Growth Status 09/21/17 17:17 Blood Peripheral Aerobic Blood Culture - Preliminary NO GROWTH IN 2 DAYS Resulted 09/21/17 17:17 Blood Peripheral Anaerobic Blood Culture - Preliminary NO GROWTH IN 2 DAYS Resulted 09/21/17 21:33 Wound Arm Fungal Smear - Final NO FUNGAL ELEMENTS SEEN. Resulted 09/21/17 21:33 Wound Arm Fungal Culture Pending Resulted Mental Status Examination Appearance: Appropriate Consciousness: Alert Orientation: x4 Motor Activity: Normal gait Speech: Unremarkable Language: Adequate Fund of Knowledge: Adequate Attention and Concentration: Adequate Memory: Unremarkable Mood: Appropriate Affect: Appropriate Thought Process & Associations: Intact Thought Content: Appropriate Hallucination Type: None Delusion Type: None Suicidal Ideation: No Suicidal Plan: No Suicidal Intention: No Homicidal Ideation: No Homicidal Plan: No Homicidal Intention: No Insight: Adequate Judgment: Adequate Assessment & Plan Problem List: (1) Adjustment disorder with disturbance of conduct ICD Codes: F43.24 - Adjustment disorder with disturbance of conduct Assessment & Plan: On psychiatric evaluation today the patient does not present any neuropsychiatric symptoms that require an immediate psychiatric intervention other than difficulty sleeping at night. He seems to me that recurrent reported agitation and verbal aggressive is secondary to his temperament and character rather than secondary to a major psychiatric illness decompensation. Brief supportive psychotherapy and psychoeducation provided. Trazodone 100 mg at bedtime can be ordered for insomnia. Patient does not meet criteria for involuntary psychiatric admission at this moment Assessment & Plan Estimated LOS: days Hiram Win MD Sep 23, 2017 13:23
--- NOTE | 2017-09-23 14:42 | HHI.PR ---
Subjective Remarks patient feels better. No complaints Objective Vital Signs Date Time Temp Pulse Resp B/P (MAP) Pulse Ox O2 Delivery O2 Flow Rate FiO2 09/23/17 12:00 97.3 55 18 183/98 (126) 98 09/23/17 08:00 97.0 46 18 164/84 (110) 97 09/23/17 00:00 97.6 52 17 184/97 (126) 99 09/22/17 20:00 97.4 61 19 185/97 (126) 98 09/22/17 17:55 97 21 I/O 09/22/17 09/22/17 09/22/17 09/23/17 09/23/17 09/23/17 07:00 15:00 23:00 07:00 15:00 23:00 Intake Total 1467 ml 1020 ml 480 ml 300 ml Output Total 1250 ml Balance 217 ml 1020 ml 480 ml 300 ml Intake Oral 684 ml 720 ml 480 ml IV Total 783 ml 300 ml 300 ml Output Urine Total 1250 ml # Voids 3 2 # Bowel Movements 0 Result Diagram: 09/23/17 0654 09/23/17 0654 Objective Remarks Examination of bilateral arms and forearms reveals the wounds are clean and have no active purulent drainage. Is neurovascularly intact throughout. The edema and induration is much improved there still cellulitis around the wounds is is expected to be Assessment and Plan Problem List: (1) Skin abscess ICD Codes: L02.91 - Cutaneous abscess, unspecified Status: Acute Plan: Continue IV antibiotics and packing changes. Okay to shower and redress the wounds improving nicely (2) Cellulitis of left arm ICD Codes: L03.114 - Cellulitis of left upper limb (3) Cellulitis of arm, right ICD Codes: L03.113 - Cellulitis of right upper limb Status: Acute (4) Abscess of left arm ICD Codes: L02.414 - Cutaneous abscess of left upper limb (5) Abscess of right arm ICD Codes: L02.413 - Cutaneous abscess of right upper limb Status: Acute Karri De La Rosa III, MD Sep 23, 2017 14:42
[2017-09-23] MEDS: amLODIPine BESYLATE 5 MG TAB PO SCH (14:46)
[2017-09-23] MEDS: IBUPROFEN 800 MG TAB PO PRN (16:59)
[2017-09-23] MEDS: HYDROmorphone HCL 2 MG TAB PO PRN (20:55)
[2017-09-24] VITALS: BP 197/95; PULSE 62; RESP 17; TEMP 97.4; O2SAT 98
[2017-09-24] MEDS: ACETAMINOPHEN/HYDROcodone 325 MG/5 MG TAB PO PRN ×2 (01:13→07:09)
[2017-09-24] MEDS: PIPERACIL-TAZO 3.375 GM PREMIX 50 ML IV SCH ×2 (01:14→08:10)
[2017-09-24] MEDS: IBUPROFEN 800 MG TAB PO PRN (04:55)
[2017-09-24 08:00] VITALS: BP 250/122; PULSE 60; RESP 19; TEMP 98.7; O2SAT 99
[2017-09-24] MEDS: SODIUM CHLOR 0.9% 1000 ML INJ 1,000 ML IV SCH (08:11)
[2017-09-24] MEDS: amLODIPine BESYLATE 5 MG TAB PO SCH (08:11)
[2017-09-24] MEDS: VANCOMYCIN 1,000 MG/NS 250 ML IV SCH ×2 (08:11)
--- NOTE | 2017-09-24 09:29 | HHI.PR ---
Subjective Remarks in no acute distress. afebrile. pain seems to be fairly controlled. no new complaints. BP trend noted. Objective Vitals Vital Signs Date Time Temp Pulse Resp B/P (MAP) Pulse Ox O2 Delivery O2 Flow Rate FiO2 09/24/17 08:00 98.7 60 19 250/122 (164) 99 09/24/17 00:00 97.4 62 17 197/95 (129) 98 09/23/17 20:00 97.8 59 17 205/96 (132) 99 09/23/17 18:17 99 21 09/23/17 16:00 97.4 56 18 198/95 (129) 100 09/23/17 12:00 97.3 55 18 183/98 (126) 98 I/O 09/23/17 09/23/17 09/23/17 09/24/17 09/24/17 09/24/17 07:00 15:00 23:00 07:00 15:00 23:00 Intake Total 480 ml 300 ml 900 ml 590 ml Output Total 550 ml Balance 480 ml 300 ml 900 ml 40 ml Intake Oral 480 ml 900 ml 240 ml IV Total 300 ml 350 ml Output Urine Total 550 ml # Voids 2 4 2 # Bowel Movements 1 Result Diagram: 09/23/17 0654 09/23/17 0654 Imaging Last Impressions Chest X-Ray 09/21/171953 Signed Impressions: Service Date/Time: Thursday, September 21, 2017 20:04 - CONCLUSION: 1. Minimal basilar atelectasis. No focal consolidation or effusion. Geoff Whitlock MD Objective Remarks GENERAL: This is a well-nourished, well-developed patient, in no apparent distress. CARDIOVASCULAR: Regular rate and regular rhythm without murmurs, gallops, or rubs. RESPIRATORY: Clear to auscultation. Breath sounds equal bilaterally. No wheezes , rales, or rhonchi. GASTROINTESTINAL: Abdomen soft, non-tender, nondistended. Normal, active bowel sounds MUSCULOSKELETAL: both upper extremities covered with clean dressing. NEURO: Alert & Oriented x4 to person, place, time, situation. Moves all ext x4 Procedures I/D of both elbows. Medications and IVs Inpatient Medications Acetaminophen (Tylenol) 650 mg Q4H PRN PO TEMP > 100.4; Start 09/21/17 at 20:30 Acetaminophen/ Hydrocodone Bitart ([place] 5-325 Mg) 2 tab Q6HR PRN PO PAIN SCALE 5 TO 8 Last administered on 09/24/17at 07:09; Start 09/23/17 at 15:00; Stop 09/26/17 at 14:59 Amlodipine Besylate (Norvasc) 5 mg DAILY PO Last administered on 09/24/17at 08:11 ; Start 09/23/17 at 13:00 Bisacodyl (Dulcolax Supp) 10 mg DAILY PRN RECTAL SEVERE CONSITIPATION; Start at 20:30 Enalaprilat (Vasotec Inj) 2.5 mg Q6H PRN IV PUSH SBP>160, DBP>90 Last administered on 09/23/17at 17:00; Start 09/21/17 at 22:00 Hydralazine HCl (Apresoline Inj) 10 mg ONCE ONCE IV PUSH Last administered on 09/21/17at 19:19; Start 09/21/17 at 19:00; Stop 09/21/17 at 19:01; Status DC Hydromorphone HCl (Dilaudid Pf Inj) 1 mg Q3H PRN IV PAIN SCALE GREATER THAN 4 Last administered on 09/23/17at 11:36; Start 09/21/17 at 20:30; Stop 09/23/17 at 14: 55; Status DC Hydromorphone HCl (Dilaudid) 2 mg Q12HR PRN PO PAIN GREATER THAN 8 Last administered on 09/23/17at 20:55; Start 09/23/17 at 15:00 Ibuprofen (Motrin) 800 mg Q12H PRN PO PAIN SCALE 2 TO 4 Last administered on 09/24/17at 04:55; Start 09/21/17 at 22:15 Magnesium Hydroxide (Milk Of Magnesia Liq) 30 ml Q12H PRN PO Mild constipation ; Start 09/21/17 at 20:30 Miscellaneous Information SPECIFIC LAB TO BE DRAWN:VANCOMYCIN TROUGH DATE TO... ONCE ONCE .XX ; Start 09/25/17 at 07:45; Stop 09/25/17 at 07:46 Naloxone HCl (Narcan Inj) 0.4 mg UNSCH PRN IV PUSH SEE LABEL COMMENTS; Start at 20:30 Ondansetron HCl (Zofran Inj) 4 mg Q6H PRN IVP NAUSEA OR VOMITING; Start at 20:30 Pharmacy Profile Note 0 ml @ 0 mls/hr UNSCH OTHER ; Start 09/21/17 at 20:30 Piperacillin Sod/ Tazobactam Sod 50 ml @ 100 mls/hr Q6H IV Last administered on 09/24/17at 08:10; Start 09/22/17 at 02:00 Potassium Chloride (KCl) 40 meq ONCE ONCE PO ; Start 09/22/17 at 16:00; Stop 09/22/17 at 16:01; Status DC Sennosides (Senokot) 17.2 mg Q12H PRN PO Moderate constipation; Start 09/21/17 at 20:30 Sodium Chloride (NS Flush) 2 ml BID IV FLUSH Last administered on 09/23/17at 20: 59; Start 09/21/17 at 21:00 Vancomycin HCl 1000 mg/Sodium Chloride 250 ml @ 250 mls/hr Q12H IV Last administered on 09/24/17at 08:11; Start 09/22/17 at 08:00 A/P Assessment and Plan A/P 1. Bilateral antecubital abscesses Hand surgery consulted- s/p I/D continue IV antibiotics. Blood cultures negative Wound culture with MRSA Echo with no vegetation. 2. Hypokalemia replaced. 3. Hypertensive urgency one dose of procardia today. started on amlodipine Vasotec when necessary Patient not currently on any home medications will monitor and adjust the regimen as needed. 4. IV drug abuse Cessation counseling provided Discharge Planning dc home when cleared by hand surgery and BP is better controlled. Yoly Rico MD Sep 24, 2017 09:29
[2017-09-24] MEDS ORDERED: NIFEdipine 30 MG SUSTAINED RELEASE TAB PO ONE (09:30)
[2017-09-24] MEDS: HYDROmorphone HCL 2 MG TAB PO PRN (09:46)
[2017-09-24] MEDS: SODIUM CHLORIDE 0.9% FLUSH 10 ML FLUSH IV FLUSH SCH (09:48)
[2017-09-25] MEDS ORDERED: PHARMACY ORDERED LAB ONE (07:45)
== END 2017-09-24 10:37 | disposition left against medical advice (07) | DRG 572 ==
LOC: NEDAMB 15:47 → NEDA 19:57 → HPAC 22:53 → N07A 09-22 06:05
PROVIDERS: ADMIT Internal Medicine; ATTEND Internal Medicine
PROC: 0JBG0ZZ Excision of Right Lower Arm Subcutaneous Tissue and Fascia, Open Approach (ICD-10-PCS; 2017-09-21)
PROC: 0JBH0ZZ Excision of Left Lower Arm Subcutaneous Tissue and Fascia, Open Approach (ICD-10-PCS; principal; 2017-09-21 20:55)
DX: L02.414 Cutaneous abscess of left upper limb (principal); I10 Essential (primary) hypertension; L03.113 Cellulitis of right upper limb; E87.6 Hypokalemia; F19.10 Other psychoactive substance abuse, uncomplicated; L02.413 Cutaneous abscess of right upper limb; L03.114 Cellulitis of left upper limb; B95.62 Methicillin resistant Staphylococcus aureus infection as the cause of diseases classified elsewhere; F43.24 Adjustment disorder with disturbance of conduct; I16.0 Hypertensive urgency; R45.1 Restlessness and agitation; Z72.0 Tobacco use
CPT/HCPCS: 71045; 76937; 80048; 80053; 80202; 83605; 83880; 85025; 85610; 85730; 86403; 87015; 87040; 87070; 87102; 87116; 87147; 87186; 87205; 87206; 93005; 93306; 96365; 96375; J0330; J0360; J1170; J2175; J2270; J2543; J3010; J3370; J3480; J7030; J7050

== ENCOUNTER 2017-12-06 19:36 | Inpatient (IN) | payer SELFPAY ==
[~2017-12-06] VITALS: Ht 182.9 cm; Wt 107.0 kg
[2017-12-06 19:42] VITALS: BP 140/95; PULSE 105; RESP 16; O2SAT 95
[2017-12-06 20:00] VITALS: O2SAT 88
[2017-12-06] MEDS ORDERED: PIPERACIL-TAZO 3.375 GM PREMIX 50 ML IV ONE (20:00)
[2017-12-06] MEDS ORDERED: VANCOMYCIN INJ 1,000 MG in SODIUM CHLOR 0.9% 250 ML INJ 250 ML IV ONE (20:00)
[2017-12-06] MEDS ORDERED: SODIUM CHLOR 0.9% 1000 ML INJ 1,000 ML IV ONE (20:00)
[2017-12-06 20:02] VITALS: BP 153/96; PULSE 85; RESP 16; TEMP 97.9; O2SAT 94
--- NOTE | 2017-12-06 20:10 | PD ---
HPI Chief Complaint: Skin Problem Time Seen by Provider: 19:58 Travel History International Travel<30 days: No Contact w/Intl Traveler<30days: No Traveled to known affect area: No History of Present Illness HPI The patient is a 47 year old male who presents to the [facility] emergency department with a history of reportedly not feeling well over the last 2-3 days. He reports having generalized fatigue, upper abdominal pain, and over the last week a cough that has been productive of white sputum. The patient denies smoking cigarettes, however he does occasionally smoke weed. The patient also is noted to have abscesses involving bilateral arms related to IV drug use. He reports that he has been using IV drugs for the last 11 years. He reports that he has a history of endocarditis and abscesses of the skin. The patient reports that he is visiting from [facility] and has no local primary care physician. 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 He reports that he normally eats 1 time per day. He has not eaten today. He denies having any nausea, vomiting, or diarrhea. His last bowel movement was reportedly 2 days ago. He denies having any blood in his stool or black or tarry stools. The patient is unsure whether he has had any fevers. He reports that he has had chills. He reports having shortness of breath. He denies having any chest pain. On review of systems otherwise, the patient denies having any neck or back pain, urinary symptoms, or neurologic symptoms. The patient reports having joint aches. He denies having any joint swelling or erythema. \ PFS Past Medical History Narrative Medical The patient's past medical history is significant for IV drug use over the last 11 years, history of endocarditis, history of skin abscesses. He denies any history of HIV or hepatitis. Hx Anticoagulant Therapy: No Atrial Fibrillation: No Heart Rhythm Problems: No Cancer: No Cardiovascular Problems: Yes (ENDOCARDITIS) High Cholesterol: No Chemotherapy: No Chest Pain: No Congestive Heart Failure: No Cerebrovascular Accident: No Diabetes: No Diminished Hearing: No Endocrine: No Genitourinary: No Hypertension: Yes Immune Disorder: No Musculoskeletal: No Neurologic: No Psychiatric: No Reproductive: No Respiratory: No Integumentary: Yes (absess) Past Surgical History Narrative Surgical The patient's past surgical history is significant for incision and drainage of abscesses Other Surgery: Yes (hand ) Social History Alcohol Use: No Tobacco Use: No Substance Use: Yes (OPIOIDS, METH, marijuana) Allergies-Medications (Allergen,Severity, Reaction): Coded Allergies: No Known Allergies (Unverified , 12/06/17) Reported Meds & Prescriptions Reported Meds & Active Scripts Active No Active Prescriptions or Reported Medications Review of Systems Except as stated in HPI: all other systems reviewed are Neg General / Constitutional: No: Fever Eyes: No: Visual changes HENT: Positive: Congestion, No: Headaches Cardiovascular: Positive: Dyspnea on exertion, No: Chest Pain or Discomfort Respiratory: Positive: Cough, Shortness of Breath Gastrointestinal: Positive: Abdominal Pain, No: Nausea, Vomiting, Diarrhea, Hematochezia, Constipation, Changes in Bowel Habits, Indigestion, Loss of Appetite Genitourinary: No: Dysuria Musculoskeletal: No: Pain Skin: No Rash Neurologic: Positive: Weakness (Generalized fatigue and weakness), No: Focal Abnormalities, Change in Mentation, Slurred Speech, Sensory Disturbance Psychiatric: No: Depression Endocrine: No: Polydipsia Hematologic/Lymphatic: No: Easy Bruising Physical Exam Narrative General: The patient is a well-developed well-nourished male in no acute distress. Head and Neck exam: Head is normocephalic atraumatic. Eyes: EOMI, pupils are equal round and reactive to light. Nose: Midline septum with pink mucous membranes Mouth: Dentition unremarkable. Dry mucus membranes. Posterior oropharynx is not erythematous. No tonsillar hypertrophy. Uvula midline. Airway patent. Neck: No palpable lymphadenopathy. No nuchal rigidity. No thyromegaly. Cardiovascular: Irregularly irregular with occasional PVCs noted on telemetry without murmurs, gallops, or rubs. No pulse deficit to the extremities on simultaneous auscultation and palpation of his radial artery. Lungs: Clear to auscultation bilaterally. No wheezes, rhonchi, or rales. Abdomen: Soft, with tenderness on palpation of the right upper quadrant and midepigastric area, no other tenderness on palpation of the other quadrants of the abdomen. No guarding, rebound, or rigidity. Normal bowel sounds are audible. No tenderness on palpation of McBurney's point. Negative Neumann sign. Extremities: No clubbing or cyanosis. The patient has trace pedal edema. 2+ pulses in all 4 extremities. No calf tenderness on palpation. The patient is noted to have bilateral upper extremity abscesses, one is near the antecubital fossa in the left arm, the second is on the right arm laterally involving the axial aspect of the forearm. Back: No spinous process tenderness to palpation. No costovertebral angle tenderness to palpation. Neurologic Exam: Grossly nonfocal. Skin Exam: No rash noted. Intact skin that is warm and dry. Data Data Last Documented VS Vital Signs Date Time Temp Pulse Resp B/P (MAP) Pulse Ox O2 Delivery O2 Flow Rate FiO2 12/06/17 22:00 80 16 166/96 (119) 96 Room Air 12/06/17 20:02 97.9 3.00 Orders Orders Electrocardiogram (12/06/17 19:59) Complete Blood Count With Diff (12/06/17 19:59) Comprehensive Metabolic Panel (12/06/17 19:59) Creatine Kinase (Cpk) (12/06/17 19:59) Ckmb (Isoenzyme) Profile (12/06/17 19:59) Troponin I (12/06/17:59) B-Type Natriuretic Peptide (12/06/17 19:59) Prothrombin Time / Inr (Pt) (12/06/17 19:59) Act Partial Throm Time (Ptt) (12/06/17 19:59) Blood Culture (12/06/17:59) C-Reactive Protein (Crp) (12/06/17 19:59) Lipase (12/06/17 19:59) Urinalysis - C+S If Indicated (12/06/17 19:59) Westergren Sedimentation Rate (12/06/17 19:59) Magnesium (Mg) (12/06/17 19:59) Chest, Single Ap (12/06/17 19:59) Iv Access Insert/Monitor (12/06/17 19:59) Ecg Monitoring (12/06/17 19:59) Oximetry (12/06/17 19:59) Drug Screen, Random Urine (12/06/17 19:59) Alcohol (Ethanol) (12/06/17 19:59) Lactic Acid Sepsis Protocol (12/06/17 19:59) Piperacil-Tazo 3.375 Gm Premix (Zosyn 3. (12/06/17 20:00) Vancomycin Inj (Vancomycin Inj) (12/06/17 20:00) Sodium Chlor 0.9% 1000 Ml Inj (Ns 1000 M (12/06/17 20:00) CKMB (12/06/17 20:00) CKMB% (12/06/17 20:00) Sodium Chlorid 0.9% 500 Ml Inj (Ns 500 M (12/06/17 21:00) Ct Thorax/ Chest Wo Iv Contras (12/06/17 21:59) Wound Culture And Gram Stain (12/06/17 22:06) Lidocai-Epi 1%-1:100,000 Inj (Xylocaine- (12/06/17 22:15) Admit Order (Ed Use Only) (12/06/17 22:09) Labs Laboratory Tests Test 12/06/17 20:00 12/06/17 20:10 White Blood Count 17.8 TH/MM3 Red Blood Count 5.08 MIL/MM3 Hemoglobin 13.6 GM/DL Hematocrit 40.5 % Mean Corpuscular Volume 79.8 FL Mean Corpuscular Hemoglobin 26.8 PG Mean Corpuscular Hemoglobin Concent 33.6 % Red Cell Distribution Width 16.4 % Platelet Count 121 TH/MM3 Mean Platelet Volume 9.5 FL Neutrophils (%) (Auto) 92.8 % Lymphocytes (%) (Auto) 3.9 % Monocytes (%) (Auto) 2.1 % Eosinophils (%) (Auto) 1.0 % Basophils (%) (Auto) 0.2 % Neutrophils # (Auto) 16.5 TH/MM3 Lymphocytes # (Auto) 0.7 TH/MM3 Monocytes # (Auto) 0.4 TH/MM3 Eosinophils # (Auto) 0.2 TH/MM3 Basophils # (Auto) 0.0 TH/MM3 CBC Comment DIFF FINAL Differential Comment Prothrombin Time 12.1 SEC Prothromb Time International Ratio 1.2 RATIO Activated Partial Thromboplast Time 27.4 SEC Blood Urea Nitrogen 75 MG/DL Creatinine 2.94 MG/DL Random Glucose 91 MG/DL Total Protein 7.9 GM/DL Albumin 2.2 GM/DL Calcium Level 8.4 MG/DL Magnesium Level 3.0 MG/DL Alkaline Phosphatase 191 U/L Aspartate Amino Transf (AST/SGOT) 46 U/L Alanine Aminotransferase (ALT/SGPT) 29 U/L Total Bilirubin 1.9 MG/DL Sodium Level 129 MEQ/L Potassium Level 3.0 MEQ/L Chloride Level 90 MEQ/L Carbon Dioxide Level 25.0 MEQ/L Anion Gap 14 MEQ/L Estimat Glomerular Filtration Rate 23 ML/MIN Lactic Acid Level 2.7 mmol/L Total Creatine Kinase 155 U/L Creatine Kinase MB 8.6 NG/ML Troponin I 0.03 NG/ML C-Reactive Protein 18.00 MG/DL Lipase 47 U/L Ethyl Alcohol Level LESS THAN 3 MG/DL Erythrocyte Sedimentation Rate 43 mm/hr B-Type Natriuretic Peptide 155 PG/ML MDM Medical Decision Making Medical Screen Exam Complete: Yes Emergency Medical Condition: Yes Medical Record Reviewed: Yes Differential Diagnosis Bacteremia with sepsis, versus endocarditis, versus pneumonia, versus congestive heart failure, versus multiple abscesses Narrative Course During the course of the patient's emergency department visit, the patient's history, examination, and differential diagnosis were reviewed with the patient. The patient was placed on a equipment monitor phototypesetting with oximetry and frequent blood pressure monitoring. The patient had IV access obtained and blood work sent for analysis. The patient had an EKG done on arrival. The patient's EKG reveals a sinus rhythm with a heart rate of 86, QRS duration is 110 ms 46 ms. The patient has occasional frequent premature ventricular complexes noted. No acute ST segment elevation is noted. Blood cultures 2 were drawn, lactic acid was sent for analysis. The patient was initially provided normal saline 1 L IV fluid bolus, Zosyn 3.375 g IV, vancomycin 1 g IV The patient's laboratory studies were reviewed and remarkable for white count of 17.8, hemoglobin 13.6, platelets 121 with 92.8 neutrophils, lymphocytes 3.9, sedimentation rate is elevated at 43, CMP is remarkable for sodium of 129, potassium 3.0, BUN and creatinine are elevated at 75 and 2.94 respectively consistent with acute renal failure in a patient that last had normal renal function during his last admission, calcium 8.4, magnesium 3, total bilirubin 1.9, AST 46, alk phos 191, CPK 155, troponin I 0.03, lipase 47, C-reactive protein is elevated at 18, lactic acid is 2.7, BNP is 155. PT 12.1, PTT 27.4, alcohol level less than 3. Radiology studies were reviewed and remarkable for a chest x-ray that shows interval development of bilateral effusions and patchy airspace disease since September 2017. Mounika, the nurse practitioner was consulted regarding incision and drainage of the patient's forearm abscess. The patient's results were discussed with the patient, including the plan of care. I explained that further testing and/ or monitoring is indicated based on the patient's history, examination, and/ or laboratory findings. Therefore, I recommended admission for additional evaluation. The patient expressed understanding and was agreeable with this plan. The patient was admitted to the hospital in guarded condition and sent to a bed under the care of the [facility] service. Critical Care Narrative Aggregate critical care time was 34 minutes. Time to perform other separately billable procedures was not included in the critical care time. My time did not include minutes spent treating any other patients simultaneously or on activities that did not directly contribute to the patient's treatment. The services I provided to this patient were to treat and/or prevent clinically significant deterioration that could result in: Respiratory failure from fluid overload from crystalloid resuscitation, versus cardiovascular collapse from sepsis, versus respiratory failure from pneumonia I provided critical care services requiring my management, as noted below: Chart data review, documentation time, medication orders and management, vital sign assessments/reviewing monitor data, ordering and reviewing lab tests, ordering and interpreting/reviewing x-rays and diagnostic studies, care of the patient and discussion of the patient with the admitting physicians. Sepsis Criteria SIRS Criteria (2 or more): Heart rate over 90, WBC > 48998, < 4000 or > 10% bands Sepsis Criteria (SIRS+source): Infect source susp/known Severe Sepsis (+one): Lactate >2, Acute Oliguria/Renal Failure Criteria Outcome: Meets SIRS criteria, Meets sepsis criteria, Meets severe sepsis criteria Physician Communication Physician Communication The patient's case including history, pertinent physical examination findings, and laboratory studies were discussed with Dr. Chang. It was agreed that the patient would be admitted to the [facility] service. Diagnosis Primary Impression: Sepsis Qualified Codes: A41.9 - Sepsis, unspecified organism Additional Impressions: Abscess of right arm IV drug user Renal insufficiency Admitting Information Admitting Physician Requests: Admit Scripts No Active Prescriptions or Reported Meds Blanka Abad MD Dec 06, 2017 20:10
[2017-12-06 20:27] LABS: AUTOMATED NEUTROPHIL # 16.5 TH/MM3 (1.8-7.7); BASOPHIL % 0.2 % (0.0-2.0); EOSINOPHIL # 0.2 TH/MM3 (0-0.4); HEMATOCRIT 40.5 % (39.0-51.0); HEMOGLOBIN 13.6 GM/DL (13.0-17.0); LYMPH % 3.9 % (9.0-44.0); LYMPHOCYTE # 0.7 TH/MM3 (1.0-4.8); MEAN CELL VOLUME 79.8 FL (80.0-100.0); MEAN CORPUSCULAR HEMOGLOBIN 26.8 PG (27.0-34.0); MEAN CORPUSCULAR HGB CONC 33.6 % (32.0-36.0); MEAN PLATELET VOLUME 9.5 FL (7.0-11.0); MONO % 2.1 % (0.0-8.0); MONOCYTE # 0.4 TH/MM3 (0-0.9); NEUT % 92.8 % (16.0-70.0); PLATELET COUNT 121 TH/MM3 (150-450); RED BLOOD COUNT 5.08 MIL/MM3 (4.50-5.90); RED CELL DISTRIBUTION WIDTH 16.4 % (11.6-17.2); WHITE BLOOD COUNT 17.8 TH/MM3 (4.0-11.0)
[2017-12-06 20:32] LABS: INTERNATIONAL NORMALIZED RATIO 1.2 RATIO; PROTHROMBIN TIME - PATIENT 12.1 SEC (9.8-11.6)
--- NOTE | 2017-12-06 20:42 | RADRPT ---
EXAM DATE: 12/06/2017 8:29 PM EDT AGE/SEX: 47 years / Male INDICATIONS: Short of breath. CLINICAL DATA: This is the patient's initial encounter. Patient reports that signs and symptoms have been present for 1 day and indicates a pain score of Nonresponsive. MEDICAL/SURGICAL HISTORY: . Hypertension. MRSA. Abscess. IV drug user. . Hand surgery. COMPARISON: [facility] – [place], CHEST SINGLE AP, 09/21/2017. . FINDINGS: Small bilateral pleural effusions. Patchy bilateral airspace disease. Findings are new since September 21. Heart size upper limits normal. No pneumothorax. CONCLUSION: Interval development of bilateral effusions and patchy airspace disease since September 21, 2017. Electronically signed by: Geoff Whitlock MD 12/06/2017 8:41 PM EDT
[2017-12-06 20:49] LABS: ALKALINE PHOSPHATASE 191 U/L (45-117); TOTAL BILIRUBIN ADULT 1.9 MG/DL (0.2-1.0); TOTAL PROTEIN 7.9 GM/DL (6.4-8.2); TROPONIN I 0.03 NG/ML (0.02-0.05)
[2017-12-06 20:51] LABS: LACTIC ACID SEPSIS PROTOCOL 2.7 mmol/L (0.4-2.0)
[2017-12-06 21:00] VITALS: BP 144/85; PULSE 86; RESP 16; O2SAT 96
[2017-12-06] MEDS ORDERED: SODIUM CHLORID 0.9% 500 ML INJ 500 ML IV ONE (21:00)
[2017-12-06 21:19] LABS: ALBUMIN 2.2 GM/DL (3.4-5.0); ALT (GPT) 29 U/L (12-78); AST (GOT) 46 U/L (15-37); BLOOD UREA NITROGEN 75 MG/DL (7-18); CALCIUM 8.4 MG/DL (8.5-10.1); CHLORIDE 90 MEQ/L (98-107); CREATININE 2.94 MG/DL (0.60-1.30); GLOMERULAR FILTRATION RATE 23 ML/MIN (>89); GLUCOSE,RANDOM 91 MG/DL (74-106); SODIUM (NA) 129 MEQ/L (136-145)
[2017-12-06 22:00] VITALS: BP 166/96; PULSE 80; RESP 16; O2SAT 96
[2017-12-06] MEDS ORDERED: LIDOCAINE 1%/EPINEPHrine 1:100,000 SOLN 20 ML VIAL INFIL ONE (22:15)
[2017-12-06] MEDS ORDERED: NALOXONE HCL 0.4 MG/ML AMP IV PUSH PRN (22:30)
[2017-12-06] MEDS ORDERED: BISACODYL 10 MG SUPP RECTAL PRN (22:30)
[2017-12-06] MEDS ORDERED: SODIUM CHLORIDE 0.9% FLUSH 10 ML FLUSH IV FLUSH PRN (22:30)
[2017-12-06] MEDS ORDERED: LACTULOSE SYRUP 20 GM/30 ML CUP PO PRN (22:30)
[2017-12-06] MEDS ORDERED: SENNOSIDES 8.6 MG TAB PO PRN (22:30)
[2017-12-06] MEDS ORDERED: Vancomycin Consult Pharmacy 1 EA OTHER SCH (22:30)
[2017-12-06] MEDS ORDERED: ONDANSETRON ODT 4 MG TAB PO PRN (22:30)
[2017-12-06] MEDS ORDERED: ACETAMINOPHEN 325 MG TAB PO PRN (22:30)
--- NOTE | 2017-12-06 22:33 | HHI.HP ---
[facility] No Primary Care Physician Admission Diagnosis Sepsis, Arm Abscesses, r/o endocarditis Diagnoses: Travel History International Travel<30 Days: No Contact w/Intl Traveler <30 Da: No Traveled to Known Affected Are: No History of Present Illness 47-year-old male with a past medical history significant for IV drug abuse and history of endocarditis presents the emergency department for the evaluation of an abscess on his right forearm. Patient reports the abscess has been present for approximately 3 days and then is in an injection site. He endorses subjective fever/chills. He denies chest pain or shortness of breath. No abdominal pain. No nausea/vomiting/diarrhea. No lateralizing signs/symptoms. Review of Systems Except as stated in HPI: all other systems reviewed are Neg Past Family Social History Past Medical History IV drug abuse History of endocarditis Past Surgical History Left arm I&D Reported Medications Reported Meds & Active Scripts Active No Active Prescriptions or Reported Medications Allergies: Coded Allergies: No Known Allergies (Unverified , 12/06/17) Family History Negative for CAD/DM Social History Occasional tobacco. Denies alcohol. Positive marijuana, IV and IV methamphetamine. Physical Exam Vital Signs Vital Signs Date Time Temp Pulse Resp B/P (MAP) Pulse Ox O2 Delivery O2 Flow Rate FiO2 12/06/17 20:02 97.9 85 16 153/96 (115) 94 Nasal Cannula 3.00 12/06/17 20:00 88 Room Air 12/06/17 19:51 16 12/06/17 19:42 105 16 140/95 (110) 95 Physical Exam GENERAL: Thin, disheveled male lying in bed SKIN: Large, fluctuant abscess just distal to the antecubital space on the right forearm. Approximately 5 x 3 cm. Surrounding area with erythema and induration. HEAD: Atraumatic. Normocephalic. No temporal or scalp tenderness. EYES: Pupils equal round and reactive. Extraocular motions intact. No scleral icterus. No injection or drainage. ENT: Nose without bleeding, purulent drainage or septal hematoma. Throat without erythema, tonsillar hypertrophy or exudate. Uvula midline. Airway patent. NECK: Trachea midline. No JVD or lymphadenopathy. Supple, nontender, no meningeal signs. CARDIOVASCULAR: Regular rate and rhythm without murmurs, gallops, or rubs. RESPIRATORY: Clear to auscultation. Breath sounds equal bilaterally. No wheezes , rales, or rhonchi. GASTROINTESTINAL: Abdomen soft, non-tender, nondistended. No hepato-splenomegaly , or palpable masses. No guarding. MUSCULOSKELETAL: Extremities without clubbing, cyanosis, or edema. No joint tenderness, effusion, or edema noted. No calf tenderness. NEUROLOGICAL: Awake and alert. Cranial nerves II through XII intact. Motor and sensory grossly within normal limits. Normal speech. Laboratory Laboratory Tests Test 12/06/17 20:00 12/06/17 20:10 White Blood Count 17.8 Red Blood Count 5.08 Hemoglobin 13.6 Hematocrit 40.5 Mean Corpuscular Volume 79.8 Mean Corpuscular Hemoglobin 26.8 Mean Corpuscular Hemoglobin Concent 33.6 Red Cell Distribution Width 16.4 Platelet Count 121 Mean Platelet Volume 9.5 Neutrophils (%) (Auto) 92.8 Lymphocytes (%) (Auto) 3.9 Monocytes (%) (Auto) 2.1 Eosinophils (%) (Auto) 1.0 Basophils (%) (Auto) 0.2 Neutrophils # (Auto) 16.5 Lymphocytes # (Auto) 0.7 Monocytes # (Auto) 0.4 Eosinophils # (Auto) 0.2 Basophils # (Auto) 0.0 CBC Comment DIFF FINAL Differential Comment Prothrombin Time 12.1 Prothromb Time International Ratio 1.2 Activated Partial Thromboplast Time 27.4 Blood Urea Nitrogen 75 Creatinine 2.94 Random Glucose 91 Total Protein 7.9 Albumin 2.2 Calcium Level 8.4 Magnesium Level 3.0 Alkaline Phosphatase 191 Aspartate Amino Transf (AST/SGOT) 46 Alanine Aminotransferase (ALT/SGPT) 29 Total Bilirubin 1.9 Sodium Level 129 Potassium Level 3.0 Chloride Level 90 Carbon Dioxide Level 25.0 Anion Gap 14 Estimat Glomerular Filtration Rate 23 Lactic Acid Level 2.7 Total Creatine Kinase 155 Creatine Kinase MB 8.6 Troponin I 0.03 C-Reactive Protein 18.00 Lipase 47 Ethyl Alcohol Level LESS THAN 3 Erythrocyte Sedimentation Rate 43 B-Type Natriuretic Peptide 155 Date/Time Source Procedure Growth Status 12/06/17 20:00 Blood Peripheral Aerobic Blood Culture Pending Received 12/06/17 20:00 Blood Peripheral Anaerobic Blood Culture Pending Received Result Diagram: 12/06/17199912/06/171999 Caprini VTE Risk Assessment Caprini VTE Risk Assessment: No/Low Risk (score <= 1) Caprini Risk Assessment Model Point Value = 1 Point Value = 2 Point Value = 3 Point Value = 5 Age 41-60 Minor surgery BMI > 25 kg/m2 Swollen legs Varicose veins or History of unexplained or recurrent spontaneous Oral contraceptives or hormone replacement Sepsis (< 1 month) Serious lung disease, including pneumonia (< 1 month) Abnormal pulmonary function Acute myocardial infarction Congestive heart failure (< 1 month) History of inflammatory bowel disease Medical patient at bed rest Age 61-74 Arthroscopic surgery Major open surgery (> 45 min) Laparoscopic surgery (> 45 min) Malignancy Confined to bed (> 72 hours) Immobilizing plaster cast Central venous access Age >= 75 History of VTE Family history of VTE Factor V Leiden Prothrombin [id number] Lupus anticoagulant Anticardiolipin antibodies Elevated serum homocysteine Heparin-induced thrombocytopenia Other congenital or acquired thrombophilia Stroke (< 1 month) Elective arthroplasty Hip, pelvis, or leg fracture Acute spinal cord injury (< 1 month) Prophylaxis Regimen Total Risk Factor Score Risk Level Prophylaxis Regimen 0-1 Low Early ambulation 2 Moderate Order ONE of the following: *Sequential Compression Device (SCD) *Heparin 5000 units SQ BID 3-4 Higher Order ONE of the following medications: *Heparin 5000 units SQ TID *Enoxaparin/Lovenox 40 mg SQ daily (WT < 150 kg, CrCl > 30 mL/min) *Enoxaparin/Lovenox 30 mg SQ daily (WT < 150 kg, CrCl > 10-29 mL/min) *Enoxaparin/Lovenox 30 mg SQ BID (WT < 150 kg, CrCl > 30 mL/min) AND/OR *Sequential Compression Device (SCD) 5 or more Highest Order ONE of the following medications: *Heparin 5000 units SQ TID (Preferred with Epidurals) *Enoxaparin/Lovenox 40 mg SQ daily (WT < 150 kg, CrCl > 30 mL/min) *Enoxaparin/Lovenox 30 mg SQ daily (WT < 150 kg, CrCl > 10-29 mL/min) *Enoxaparin/Lovenox 30 mg SQ BID (WT < 150 kg, CrCl > 30 mL/min) AND *Sequential Compression Device (SCD) Assessment and Plan Assessment and Plan Assessment/plan: 1. Cellulitis/sepsis Patient with leukocytosis, elevated lactic acid and tachycardia Vancomycin/Zosyn I&D will be performed in the emergency department Wound cultures ordered Blood cultures pending IV fluid hydration Repeat lactic acid 2. Acute kidney injury Creatinine 2.94, baseline 1.1-1.2 Renal ultrasound pending Likely secondary to dehydration Monitor renal function If renal function does not improve, nephrology consult may be warranted 3. Hypokalemia Status post p.o. repletion Monitor BMP FEN Heart healthy diet NS at 1 25 cc/hour Electrolytes: As above SCDs Physician Certification 2 Midnight Certification Type: Admission for Inpatient Services Order for Inpatient Services The services are ordered in accordance with Medicare regulations or non- Medicare payer requirements, as applicable. In the case of services not specified as inpatient-only, they are appropriately provided as inpatient services in accordance with the 2-midnight benchmark. Estimated LOS (days): 2 2 days is the estimated time the patient will need to remain in the hospital, assuming treatment plan goals are met and no additional complications. Post-Hospital Plan: Not yet determined Joyce Chang MD Dec 06, 2017 22:33
[2017-12-06] MEDS ORDERED: POTASSIUM CHLORIDE 20 MEQ CONTROLLED RELEASE TAB PO ONE (22:45)
--- NOTE | 2017-12-06 22:52 | PD ---
Physical Exam Date Seen by Provider: Dec 06, 2017 Time Seen by Provider: 22:51 Narrative For full history and physical examination please see previous providers note. Data Data Last Documented VS Vital Signs Date Time Temp Pulse Resp B/P (MAP) Pulse Ox O2 Delivery O2 Flow Rate FiO2 12/06/17 22:00 80 16 166/96 (119) 96 Room Air 12/06/17 20:02 97.9 3.00 Orders Orders Electrocardiogram (12/06/17 19:59) Complete Blood Count With Diff (12/06/17 19:59) Comprehensive Metabolic Panel (12/06/17 19:59) Creatine Kinase (Cpk) (12/06/17 19:59) Ckmb (Isoenzyme) Profile (12/06/17 19:59) Troponin I (12/06/17:59) B-Type Natriuretic Peptide (12/06/17 19:59) Prothrombin Time / Inr (Pt) (12/06/17 19:59) Act Partial Throm Time (Ptt) (12/06/17 19:59) Blood Culture (12/06/17 19:59) C-Reactive Protein (Crp) (12/06/17 19:59) Lipase (12/06/17 19:59) Urinalysis - C+S If Indicated (12/06/17 19:59) Westergren Sedimentation Rate (12/06/17 19:59) Magnesium (Mg) (12/06/17 19:59) Chest, Single Ap (12/06/17 19:59) Iv Access Insert/Monitor (12/06/17 19:59) Ecg Monitoring (12/06/17 19:59) Oximetry (12/06/17 19:59) Drug Screen, Random Urine (12/06/17 19:59) Alcohol (Ethanol) (12/06/17 19:59) Lactic Acid Sepsis Protocol (12/06/17 19:59) Piperacil-Tazo 3.375 Gm Premix (Zosyn 3. (12/06/17 20:00) Vancomycin Inj (Vancomycin Inj) (12/06/17 20:00) Sodium Chlor 0.9% 1000 Ml Inj (Ns 1000 M (12/06/17 20:00) CKMB (12/06/17 20:00) CKMB% (12/06/17 20:00) Sodium Chlorid 0.9% 500 Ml Inj (Ns 500 M (12/06/17 21:00) Ct Thorax/ Chest Wo Iv Contras (12/06/17 21:59) Wound Culture And Gram Stain (12/06/17 22:06) Lidocai-Epi 1%-1:100,000 Inj (Xylocaine- (12/06/17 22:15) Admit Order (Ed Use Only) (12/06/17 22:09) Labs Laboratory Tests Test 12/06/17 20:00 12/06/17 20:10 White Blood Count 17.8 TH/MM3 Red Blood Count 5.08 MIL/MM3 Hemoglobin 13.6 GM/DL Hematocrit 40.5 % Mean Corpuscular Volume 79.8 FL Mean Corpuscular Hemoglobin 26.8 PG Mean Corpuscular Hemoglobin Concent 33.6 % Red Cell Distribution Width 16.4 % Platelet Count 121 TH/MM3 Mean Platelet Volume 9.5 FL Neutrophils (%) (Auto) 92.8 % Lymphocytes (%) (Auto) 3.9 % Monocytes (%) (Auto) 2.1 % Eosinophils (%) (Auto) 1.0 % Basophils (%) (Auto) 0.2 % Neutrophils # (Auto) 16.5 TH/MM3 Lymphocytes # (Auto) 0.7 TH/MM3 Monocytes # (Auto) 0.4 TH/MM3 Eosinophils # (Auto) 0.2 TH/MM3 Basophils # (Auto) 0.0 TH/MM3 CBC Comment DIFF FINAL Differential Comment Prothrombin Time 12.1 SEC Prothromb Time International Ratio 1.2 RATIO Activated Partial Thromboplast Time 27.4 SEC Blood Urea Nitrogen 75 MG/DL Creatinine 2.94 MG/DL Random Glucose 91 MG/DL Total Protein 7.9 GM/DL Albumin 2.2 GM/DL Calcium Level 8.4 MG/DL Magnesium Level 3.0 MG/DL Alkaline Phosphatase 191 U/L Aspartate Amino Transf (AST/SGOT) 46 U/L Alanine Aminotransferase (ALT/SGPT) 29 U/L Total Bilirubin 1.9 MG/DL Sodium Level 129 MEQ/L Potassium Level 3.0 MEQ/L Chloride Level 90 MEQ/L Carbon Dioxide Level 25.0 MEQ/L Anion Gap 14 MEQ/L Estimat Glomerular Filtration Rate 23 ML/MIN Lactic Acid Level 2.7 mmol/L Total Creatine Kinase 155 U/L Creatine Kinase MB 8.6 NG/ML Troponin I 0.03 NG/ML C-Reactive Protein 18.00 MG/DL Lipase 47 U/L Ethyl Alcohol Level LESS THAN 3 MG/DL Erythrocyte Sedimentation Rate 43 mm/hr B-Type Natriuretic Peptide 155 PG/ML MDM Medical Record Reviewed: Yes Supervised Visit with LILA: Yes Procedures Procedure Narrative After the risks and benefits were discussed the following procedure was performed: INCISION AND DRAINAGE OF ABSCESS: The area was prepped and was sterilely draped. A subcutaneous wheal of 1 % Xylocaine with a total number 3 mL was used to anesthetize the area. The area was properly anesthetized. A number 11 scalpel was used to make a 1.5-cm incision across the area of the abscess. Cultures were obtained. The abscess was drained an irrigated with normal saline. Quarter inch iodoform packing was placed in the wound. Sterile dressing applied. Patient advised to have packing removed in two days. Scripts No Active Prescriptions or Reported Rafas Mounika Cabrera Dec 06, 2017 22:52
--- NOTE | 2017-12-06 23:05 | RADRPT ---
EXAM DATE: 12/06/2017 10:56 PM EDT AGE/SEX: 47 years / Male INDICATIONS: Elevated labs. CLINICAL DATA: This is the patient's initial encounter. Patient reports that signs and symptoms have been present for 1 day and indicates a pain score of 6/10. MEDICAL/SURGICAL HISTORY: Hypertension. Endocarditis. Substance use. . Hand surgery. COMPARISON: No prior exams available for comparison. MEASUREMENTS: Right Kidney:__11.8 x 6.2 x 4.7 cm cm Left Kidney:__11.3 x 5.2 x 5.1 cm cm FINDINGS: Right Kidney: Unremarkable except for benign cyst lower pole and overall increased echogenicity. Left Kidney: Increased echogenicity suggesting chronic medical renal disease Bladder: Within normal limits given the degree of distension. CONCLUSION: 1. Both kidneys are echogenic suggesting chronic medical renal disease. Small cyst lower pole right kidney Electronically signed by: Andres Powell MD 12/06/2017 11:04 PM EDT
--- NOTE | 2017-12-06 23:21 | RADRPT ---
EXAM DATE: 12/06/2017 11:11 PM EDT AGE/SEX: 47 years / Male INDICATIONS: Shortness of breath; rule out pneumonia. CLINICAL DATA: This is the patient's initial encounter. Patient reports that signs and symptoms have been present for 1 day and indicates a pain score of Nonresponsive. MEDICAL/SURGICAL HISTORY: Cardiovascular disease. Hypertension. Substance abuse / IV drugs None. RADIATION DOSE: 15.51 CTDI (mGy) COMPARISON: [facility] [place], CT THORAX W CONTRAST, 02/21/2017. . TECHNIQUE: Multiple contiguous axial images were obtained through the chest without contrast. Image s were obtained in suspended respiration using multiple row detector helical technique. Using automa yogesh exposure control and adjustment of the mA and/or kV according to patient size, radiation dose was kept as low as reasonably achievable to obtain optimal diagnostic quality images. FINDINGS: Lungs: There are some patchy infiltrates throughout the lungs. There is a cavitary infiltrate in the left upper lobe posteriorly measuring almost 3 cm across. There are number of other rounded areas of infiltrate are quite small between 1 to 3 cm primarily in the left lung but also in the right lung b ase. Mediastinum: There is good visualization of the great vessels of the middle mediastinum. No evidenc e of mediastinal or hilar adenopathy/mass. Pleurae: Bilateral pleural effusions moderate in size. Axillae: Unremarkable. Bony Structures: Unremarkable. Miscellaneous: The examination was extended to include the upper abdomen, and both adrenal glands ar e normal in size and configuration. Spleen is prominent in size CONCLUSION: 1. There are numerous patchy infiltrates throughout the lungs left greater than right. Some of the i nfiltrates are borderline cavitary particularly in the left upper lobe. Moderate-sized bilateral pleu ral effusions. The scattered pulmonary disease is new since February 2017 Electronically signed by: Andres Powell MD 12/06/2017 11:20 PM EDT
[2017-12-07] MEDS: SODIUM CHLOR 0.9% 1000 ML INJ 1,000 ML IV SCH ×3 (00:21→14:50)
[2017-12-07 01:31] LABS: AMORPHOUS SEDIMENT, URINE RARE; BACTERIA, URINE RARE /hpf; BILIRUBIN, URINE NEG (NEG); BLOOD, URINE SMALL (NEG); GLUCOSE,URINE 50 mg/dL (NEG); HYALINE CAST, URINE 12 /lpf (RARE); KETONE, URINE NEG (NEG); MUCUS URINE FEW /lpf (OCC); NITRITE,URINE NEG (NEG); SQUAMOUS EPITHELIAL CELL URINE <1 /hpf (0-5); URINE COLOR YELLOW (YELLW/STRAW); URINE LEUKOCYTE ESTERASE NEG (NEG)
[2017-12-07] MEDS: PIPERACIL-TAZO 3.375 GM PREMIX 50 ML IV SCH ×2 (03:22→07:51)
[2017-12-07] MEDS: DOCUSATE SODIUM 50 MG/SENNA 8.6 MG TAB PO SCH ×2 (07:50→20:33)
[2017-12-07] MEDS: SODIUM CHLORIDE 0.9% FLUSH 10 ML FLUSH IV FLUSH SCH ×2 (07:51→20:33)
[2017-12-07 08:30] VITALS: BP 151/84; PULSE 88; RESP 20; O2SAT 93
--- NOTE | 2017-12-07 10:10 | HHI.PR ---
Subjective Remarks Nursing denies any deterioration since last night. Lab confirms that the patient refused lab draws this morning. When I asked the patient if he refused lab draws this morning, he was confused. He seems to be moaning in pain, says he is hurting and points to his chest but then also says it is hard to describe and says he is hurting all over, says he has trouble moving his torso because it hurts so much. Says he lives by himself. Objective Vital Signs Date Time Temp Pulse Resp B/P (MAP) Pulse Ox O2 Delivery O2 Flow Rate FiO2 12/06/17 22:00 80 16 166/96 (119) 96 Room Air 12/06/17 21:00 86 16 144/85 (104) 96 Nasal Cannula 12/06/17 20:02 97.9 85 16 153/96 (115) 94 Nasal Cannula 3.00 12/06/17 20:00 88 Room Air 12/06/17 19:51 16 12/06/17 19:42 105 16 140/95 (110) 95 I/O 12/06/17 12/06/17 12/06/17 12/07/17 12/07/17 12/07/17 07:00 15:00 23:00 07:00 15:00 23:00 Intake Total 1800 ml 220 ml 1050 ml Output Total 500 ml Balance 1800 ml -280 ml 1050 ml Intake Oral 220 ml IV Total 1800 ml 1050 ml Output Urine Total 500 ml Result Diagram: 12/06/17199912/06/171999 Objective Remarks 3 out of 6 ejection murmur, regular rate rhythm Unlabored breathing Appears to be moaning in some distress, Has pectoral tenderness to palpation over the left chest which the patient affirms is the source of his pain A/P Assessment and Plan 1. Cellulitis/sepsis Pending CBC and BMP from this a.m. Continue vancomycin/Zosyn I&D performed in the emergency department Wound cultures ordered Blood cultures pending IV fluid hydration Lactic acidosis resolved 2. Bacteremia -Suspect MRSA given history of IVDU, consulting ID; anticipate echo needed -Continue Vanco and Zosyn for now 2. Acute kidney injury Likely secondary to sepsis/dehydration, awaiting BMP from this a.m., IV hydration as above 3. Hyponatremia dehydration vs ETOH? pending BMP once sepsis near improved, start fluid restriction lovenox Discharge Planning epidural abscess on MRI w/ concern for cord impingement. transferring to ICU Piotr Howard MD Dec 07, 2017 10:10
[2017-12-07] MEDS: LIDOCAINE HCL 5% PATCH T-DERMAL SCH (11:27)
[2017-12-07] MEDS: ENOXAPARIN SODIUM 30 MG/0.3 ML SYRINGE SQ SCH (11:28)
[2017-12-07 11:52] LABS: AUTOMATED NEUTROPHIL # 13.3 TH/MM3 (1.8-7.7); BASOPHIL % 0.2 % (0.0-2.0); EOSINOPHIL # 0.1 TH/MM3 (0-0.4); HEMATOCRIT 33.2 % (39.0-51.0); HEMOGLOBIN 10.9 GM/DL (13.0-17.0); LYMPH % 3.3 % (9.0-44.0); LYMPHOCYTE # 0.5 TH/MM3 (1.0-4.8); MEAN CELL VOLUME 80.2 FL (80.0-100.0); MEAN CORPUSCULAR HEMOGLOBIN 26.3 PG (27.0-34.0); MEAN CORPUSCULAR HGB CONC 32.8 % (32.0-36.0); MEAN PLATELET VOLUME 9.1 FL (7.0-11.0); MONO % 3.7 % (0.0-8.0); MONOCYTE # 0.5 TH/MM3 (0-0.9); NEUT % 91.8 % (16.0-70.0); PLATELET COUNT 95 TH/MM3 (150-450); RED BLOOD COUNT 4.14 MIL/MM3 (4.50-5.90); RED CELL DISTRIBUTION WIDTH 16.6 % (11.6-17.2); WHITE BLOOD COUNT 14.5 TH/MM3 (4.0-11.0)
[2017-12-07] MEDS ORDERED: SODIUM CHLORID 0.9% 500 ML INJ 500 ML IV ONE (12:00)
[2017-12-07] MEDS ORDERED: PROPOFOL 200 MG/20 ML AMP IV ONE (12:00)
[2017-12-07] MEDS ORDERED: DEXAMETHASONE SOD PHOS 4 MG/ML VIAL IV ONE (12:00)
[2017-12-07] MEDS ORDERED: PHENYLEPHRINE HCL 10 MG/ML VIAL IV ONE (12:00)
[2017-12-07] MEDS ORDERED: LIDOCAINE HCL 1% PF 5 ML SYRINGE OTHER ONE (12:00)
[2017-12-07] MEDS ORDERED: ROCURONIUM INJ 50 MG/5 ML SYRINGE IV PUSH ONE (12:00)
[2017-12-07] MEDS ORDERED: PHENYLEPH/NS 1000 MCG/10 ML SYR IV ONE (12:00)
[2017-12-07] MEDS ORDERED: ePHEDrine/NS 25 MG/5 ML SYRINGE IV ONE (12:00)
[2017-12-07] MEDS ORDERED: LACTATED RINGER'S 1000 ML INJ 1,000 ML IV ONE (12:00)
[2017-12-07] MEDS ORDERED: SODIUM CHLOR 0.9% 250 ML INJ 250 ML IV ONE (12:00)
[2017-12-07] MEDS ORDERED: NORMOSOL R INJ 1,000 ML IV ONE (12:00)
[2017-12-07 12:16] LABS: BICARBONATE 22.2 MEQ/L (21.0-32.0); CALCIUM 7.8 MG/DL (8.5-10.1); CREATININE 2.39 MG/DL (0.60-1.30)
[2017-12-07 12:39] LABS: BANDS 23 % (0-6); LYMPHOCYTES 5 % (9-44); METAMYELOCYTES 2 % (0-1); MONOCYTES 1 % (0-8); MYELOCYTES 2 % (0-0); NEUTROPHIL # MANUAL DIFF 13.6 TH/MM3 (1.8-7.7); POLYS (SEG NEUTROPHILS) 67 % (16-70); TOXIC VACUOLATION PRESENT (NONE SEEN)
[2017-12-07 12:40] LABS: BURR CELLS 1+ (NORMAL); KERATOCYTES OCC (NORMAL)
--- NOTE | 2017-12-07 12:42 | PD.CONS ---
History of Present Illness Service Infectious disease Consult Requested By Dr. Howard Reason for Consult Evaluate patient for possible endocarditis Primary Care Physician No Primary Care Physician Diagnoses: History of Present Illness Patient seen and examined. Records reviewed. Patient is a 47-year-old male, with known history of active IV drug use, presented to the hospital complaining of an infection in his right forearm were he had injected about 3 days ago. He also has had some subjective complaints of fever and chills. Patient apparently also has been having problem with pain in the neck area that goes to his shoulder worse on the left side than on the right side, as well as left-sided chest pain. He denies any sore throat or any respiratory complaint as far as cough or congestion. Has not had any nausea or vomiting. He is also has some lower rib cage pain. Denies any urinary complaints. On presentation he was found to have an abscess in his right forearm, and had an I&D done. CT of the chest is showing some infiltrates as well as some cavitary lesions and some round lesions. Chest x-ray showing some bilateral infiltrates. His creatinine was also elevated, and renal ultrasound did not show any obstruction, and possibly has some findings of medical renal disease. 2 blood cultures done on admission are now reported as growing gram- positive cocci in pairs and clusters. Patient's drug screen is positive for amphetamines and opiates. 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 He has had multiple infections in his upper extremity related to injections from his IV drug use. The last admission for infection in his arm was September 2017. He had an echo done at that time which did not show any vegetation in the mitral valve. Infectious disease consultation has been requested to evaluate the patient. Review of Systems Constitutional: COMPLAINS OF: Fatigue, Fever, DENIES: Chills Eyes: DENIES: Eye pain Ears, nose, mouth, throat: DENIES: Nasal discharge, Oral lesions, Throat pain, Ear Pain, Sinus Pain Respiratory: DENIES: Cough, Sputum production, Shortness of breath Cardiovascular: COMPLAINS OF: Chest pain, DENIES: Palpitations Gastrointestinal: COMPLAINS OF: Abdominal pain, DENIES: Diarrhea, Nausea, Vomiting, Difficulty Swallowing Genitourinary: DENIES: Urgency, Hematuria, Dysuria Musculoskeletal: COMPLAINS OF: Joint pain, Muscle aches, Joint Swelling, Back pain, Neck pain Integumentary: COMPLAINS OF: Rash Hematologic/lymphatic: COMPLAINS OF: Bruising Neurologic: DENIES: Localized weakness Psychiatric: DENIES: Hallucinations Past Family Social History Allergies: Coded Allergies: No Known Allergies (Unverified , 12/06/17) Past Medical History Hypertension: Untreated. IV drug abuser Skin abscesses related to IVDU S/P Rx MV IE Past Surgical History Bilateral wrist abscess incision and drainage/washout Active Ordered Medications Current Medications Medications (Trade) Dose Ordered Sig/Brennon Route Start Time Stop Time Status Last Admin Pharmacy Profile Note 0 ml @ 0 mls/hr UNSCH OTHER 12/06/17 22:30 Sodium Chloride 1,000 ml @ 125 mls/hr Q8H IV 12/06/17 22:22 12/07/17 07:52 (NS Flush) 2 ml UNSCH PRN IV FLUSH 12/06/17 22:30 (NS Flush) 2 ml BID IV FLUSH 12/07/17 09:00 12/07/17 07:51 (Tylenol) 650 mg Q4H PRN PO 12/06/17 22:30 12/07/17 07:51 (Zofran Odt) 4 mg Q6H PRN PO 12/06/17 22:30 (Narcan Inj) 0.4 mg UNSCH PRN IV PUSH 12/06/17 22:30 (Pearl-Colace) 1 tab BID PO 12/07/17 09:00 12/07/17 07:50 (Milk Of Magnesia Liq) 30 ml Q12H PRN PO 12/06/17 22:30 (Senokot) 17.2 mg Q12H PRN PO 12/06/17 22:30 (Dulcolax Supp) 10 mg DAILY PRN RECTAL 12/06/17 22:30 (Lactulose Liq) 30 ml DAILY PRN PO 12/06/17 22:30 ([facility] [place] [facility] Ordered Lab Info) SPECIFIC LAB TO BE DRAWN: YSABEL TROUGH DATE TO BE . ONCE ONCE .XX 12/09/17 20:45 12/09/17 20:46 Piperacillin Sod/ Tazobactam Sod 50 ml @ 100 mls/hr Q6H IV 12/07/17 14:00 (Lidoderm 5% Patch.12 Hr) 1 patch DAILY T-DERMAL 12/07/17 10:15 12/07/17 11:27 (Lovenox Inj) 30 mg DAILY SQ 12/07/17 11:00 12/07/17 11:28 Miscellaneous Information 1 Q12HR T-DERMAL 12/07/17 21:00 Vancomycin HCl 1250 mg/Sodium Chloride 262.5 ml @ 250 mls/hr Q24H IV 12/07/17 21:00 Family History Noncontributory to current ID problem Social History Occasional tobacco. Denies alcohol. Positive marijuana, IV and IV methamphetamine. Physical Exam Vital Signs Vital Signs Date Time Temp Pulse Resp B/P (MAP) Pulse Ox O2 Delivery O2 Flow Rate FiO2 12/07/17 08:30 88 20 151/84 (106) 93 12/06/17 22:00 80 16 166/96 (119) 96 Room Air 12/06/17 21:00 86 16 144/85 (104) 96 Nasal Cannula 12/06/17 20:02 97.9 85 16 153/96 (115) 94 Nasal Cannula 3.00 12/06/17 20:00 88 Room Air 12/06/17 19:51 16 12/06/17 19:42 105 16 140/95 (110) 95 Physical Exam GENERAL: Patient is a well-nourished, well-developed patient, awake, slow to respond, looks chronically ill-appearing, not in respiratory distress. SKIN: Warm and dry. Has petechial rash both LE worse on R than on L, has embolic lesion on R 3rd toe. HEAD: Atraumatic. Normocephalic. No temporal wasting, or tenderness. EYES: [place] conjunctiva. No petechia or hemorrhage. Pupils equal, round and reactive to light. Extraocular movements full and intact. No scleral icterus. No injection or drainage. EARS, NOSE AND THROAT: Nose without bleeding or purulent nasal discharge. No sinus tenderness. Mucous membranes pink and moist. No oral lesions noted. NECK: Trachea midline. Supple and no meningeal signs. No swelling noted in neck CARDIOVASCULAR: Regular rate and rhythm. No murmurs, rubs or gallops heard RESPIRATORY: Clear to auscultation. Decreased breath sounds at bases ABDOMEN: Soft, non-tender, mildly distended. Has ventral hernia. Bowel sounds present and normoactive. No guarding. No rebound. EXTREMITIES: No clubbing, cyanosis, or edema. No joint effusions. No calf tenderness. Well perfused and warm. Has embolic lesions BLE. Has multiple wounds in LUE, with some slough and surrounding erythema. RUE - area of abscess with packing, surrounding redness. Has good ROM passive in L shoulder but complains of pain on top of shoulder, whole upper back and neck. L shoulder has no swelling or redness NEUROLOGICAL: Awake, slow to respond. Cranial nerves grossly intact. Motor grossly within normal limits. PSYCHIATRIC: calm and cooperative. LINE: No evidence of infection Laboratory Laboratory Tests Test 12/06/17 20:00 12/06/17 20:10 12/06/17 22:50 12/07/17 01:15 White Blood Count 17.8 Red Blood Count 5.08 Hemoglobin 13.6 Hematocrit 40.5 Mean Corpuscular Volume 79.8 Mean Corpuscular Hemoglobin 26.8 Mean Corpuscular Hemoglobin Concent 33.6 Red Cell Distribution Width 16.4 Platelet Count 121 Mean Platelet Volume 9.5 Neutrophils (%) (Auto) 92.8 Lymphocytes (%) (Auto) 3.9 Monocytes (%) (Auto) 2.1 Eosinophils (%) (Auto) 1.0 Basophils (%) (Auto) 0.2 Neutrophils # (Auto) 16.5 Lymphocytes # (Auto) 0.7 Monocytes # (Auto) 0.4 Eosinophils # (Auto) 0.2 Basophils # (Auto) 0.0 CBC Comment DIFF FINAL Differential Comment Prothrombin Time 12.1 Prothromb Time International Ratio 1.2 Activated Partial Thromboplast Time 27.4 Blood Urea Nitrogen 75 Creatinine 2.94 Random Glucose 91 Total Protein 7.9 Albumin 2.2 Calcium Level 8.4 Magnesium Level 3.0 Alkaline Phosphatase 191 Aspartate Amino Transf (AST/SGOT) 46 Alanine Aminotransferase (ALT/SGPT) 29 Total Bilirubin 1.9 Sodium Level 129 Potassium Level 3.0 Chloride Level 90 Carbon Dioxide Level 25.0 Anion Gap 14 Estimat Glomerular Filtration Rate 23 Lactic Acid Level 2.7 1.3 Total Creatine Kinase 155 Creatine Kinase MB 8.6 Troponin I 0.03 C-Reactive Protein 18.00 Lipase 47 Ethyl Alcohol Level LESS THAN 3 Erythrocyte Sedimentation Rate 43 B-Type Natriuretic Peptide 155 Urine Color YELLOW Urine Turbidity CLOUDY Urine pH 5.0 Urine Specific [place] 1.012 Urine Protein NEG Urine Glucose (UA) 50 Urine Ketones NEG Urine Occult Blood SMALL Urine Nitrite NEG Urine Bilirubin NEG Urine Urobilinogen 4.0 OR GREATER Urine Leukocyte Esterase NEG Urine RBC 4 Urine WBC 9 Urine Squamous Epithelial Cells <1 Urine Amorphous Sediment RARE Urine Bacteria RARE Urine Hyaline Casts 12 Urine Mucus FEW Microscopic Urinalysis Comment CULTURE INDICATED Urine Opiates Screen POS Urine Barbiturates Screen NEG Urine Amphetamines Screen POS Urine Benzodiazepines Screen NEG Urine Cocaine Screen NEG Urine Cannabinoids Screen NEG Test 12/07/17 11:30 White Blood Count 14.5 Red Blood Count 4.14 Hemoglobin 10.9 Hematocrit 33.2 Mean Corpuscular Volume 80.2 Mean Corpuscular Hemoglobin 26.3 Mean Corpuscular Hemoglobin Concent 32.8 Red Cell Distribution Width 16.6 Platelet Count 95 Mean Platelet Volume 9.1 Neutrophils (%) (Auto) 91.8 Lymphocytes (%) (Auto) 3.3 Monocytes (%) (Auto) 3.7 Eosinophils (%) (Auto) 1.0 Basophils (%) (Auto) 0.2 Neutrophils # (Auto) 13.3 Lymphocytes # (Auto) 0.5 Monocytes # (Auto) 0.5 Eosinophils # (Auto) 0.1 Basophils # (Auto) 0.0 CBC Comment AUTO DIFF Blood Urea Nitrogen 68 Creatinine 2.39 Random Glucose 116 Calcium Level 7.8 Sodium Level 133 Potassium Level 3.0 Chloride Level 98 Carbon Dioxide Level 22.2 Anion Gap 13 Estimat Glomerular Filtration Rate 29 Date/Time Source Procedure Growth Status 12/06/17 20:00 Blood Peripheral Aerobic Blood Culture - Preliminary Gram Positive Cocci Resulted 12/06/17 20:00 Anaerobic Blood Culture - Preliminary Gram Positive Cocci Resulted 12/07/17 01:15 Urine Random Urine Urine Culture Pending Received 12/06/17 22:40 Wound Arm Gram Stain - Final Resulted 12/06/17 22:40 Wound Arm Wound Culture Pending Resulted Result Diagram: 12/07/17 1130 12/07/17 1130 Imaging RADIOLOGY STUDIES/FILMS REVIEWED Last Impressions Chest CT 12/06/172158 Signed Impressions: CONCLUSION: 1. There are numerous patchy infiltrates throughout the lungs left greater el[place] n right. Some of the infiltrates are borderline cavitary particularly in the le ft upper lobe. Moderate-sized bilateral pleural effusions. The scattered pulmon gus disease is new since February 2017 Chest X-Ray 12/06/17 1959 Signed Impressions: CONCLUSION: Interval development of bilateral effusions and patchy airspace disease since A pril 2017. Renal Ultrasound 12/06/17 0000 Signed Impressions: CONCLUSION: 1. Both kidneys are echogenic suggesting chronic medical renal disease. Small cyst lower pole right kidney Assessment and Plan Assessment and Plan IMPRESSION Sepsis present on admission, with RUE abscess RUE abscess Likely with endocarditis - has IVDU, likely septic lung emboli, has embolic lesions in BLE Neck and shoulder pain, ?C spine seeding Renal insufficiency, due to infection, ?embolic RECOMMENDATION Repeat BC Echo Follow BMP MRI C spine Continue Vanco and Zosyn Deescalate once work-up completed Monitor progress I will determine course of Rx once work-up is completed I will follow along with you Thank you for this consultation Mony Szymanski MD Dec 07, 2017 12:42
[2017-12-07 12:45] VITALS: BP 148/84; PULSE 86; RESP 20; O2SAT 95
[2017-12-07] MEDS ORDERED: PIPERACIL-TAZO 2.25 GM PREMIX 50 ML IV SCH (14:00)
[2017-12-07 15:29] VITALS: BP 149/93; PULSE 85; RESP 18; O2SAT 97
--- NOTE | 2017-12-07 17:04 | RADRPT ---
EXAM DATE: 12/07/2017 4:29 PM EDT AGE/SEX: 47 years / Male INDICATIONS: Pain. CLINICAL DATA: This is the patient's initial encounter. Patient reports that signs and symptoms have been present for 2 days and indicates a pain score of 7/10. MEDICAL/SURGICAL HISTORY: Hypertension. MRSA. Endocarditis. None. COMPARISON: No prior exams available for comparison. TECHNIQUE: Multiplanar, multisequence MRI examination of the cervical spine was performed without co ntrast. FINDINGS: Vertebrae: Vertebral bodies are normal in height. There is a mild abnormal signal seen in the reflector driller and deburrer ior aspect of the posterior inferior C6 vertebral body in the posterior superior C7 vertebral body. A nterior marginal osteophytes are seen at the C5-C6 and C6-C7 levels. Alignment: There is mild posterior subluxation of C5 on C6. Cord: There is a large anterior epidural fluid collection extending from the tip of the dens down to T2 level. The anterior epidural fluid collection measures 7 mm in AP dimension over the upper and mi d cervical spine. It is most prominent at the C5-C6 through C7-T1 levels measuring up to 1.2 cm in AP dimension. There is severe stenosis at this level with the anterior epidural fluid collection compre ssing the cord. In addition to the anterior epidural suspected abscess there is increase edema seen i n the prevertebral soft tissues. There is focal anterior left vertebral abscess extending from the C5 -6 level down to the superior aspect of T1 measuring approximately 3.9 x 1.2 x 1.1 cm. Post Fossa: The cerebellar tonsils are normal in position. C2-C3: The disc space is intact. There is moderate stenosis secondary to the anterior epidural fluid collection with minimal CSF seen along the lateral aspects of the cord. The cord is not deformed. Th e neural foramina are patent bilaterally. C3-C4: The disc space is intact. Again noted is the anterior epidural fluid collection causing a mil d to moderate impression on thecal sac. This abuts the anterior right-sided cord. The neural foramina are patent bilaterally. C4-C5: Disc is intact. Again noted is the anterior epidural fluid collection is asymmetric being mor e prominent on the right causing a moderate impression on the anterior right-sided thecal sac. There continues to be a thin layer of CSF around the cord. There is facet and uncovertebral hypertrophy. Th ere is narrowing of the neural foramina bilaterally. C5-C6: The distance is increased signal on the T2-weighted images. There is some minimal posterior s ubluxation at the C5-C6 level. The anterior epidural fluid collection causes a moderate impression on the chest with the thecal sac with a thin layer CSF seen around the cord. There is right uncovertebr al and facet hypertrophy causing right neural foraminal narrowing. The left neural foramina are gross ly patent. C6-C7: The disc is abnormal demonstrating decreased height and increased signal centrally. There alexx ears to be heterogeneous signal seen posterior to the disc in the anterior epidural space. This is wi thin the anterior epidural fluid collection. There is severe stenosis posterior to the C7 vertebral b conrado. There is decreased signal within the fat and the neural foramina could suggest involvement with the inflammatory process.. C7-T1: The disc space is intact. There is severe stenosis secondary to the anterior epidural abscess . The neural foramina are patent. CONCLUSION: 1. Suspected discitis involving the C6-C7 level and possibly the C5-C6 level. 2. Large anterior epidural abscess extending from the tip of the dens down to the T2 level this caus es moderate to severe stenosis throughout the mid and lower cervical and upper thoracic spine. 3. Anterior prevertebral abscess seen to the left of midline extending from the C5 through T1 levels . There is fairly extensive prevertebral soft tissue swelling. Electronically signed by: Shan Herr MD 12/07/2017 5:02 PM EDT
--- NOTE | 2017-12-07 17:18 | PD.CONS ---
HPI Service Critical Care Medicine Consult Requested By Hospitalist service Reason for Consult acute cervical myelopathy Primary Care Physician No Primary Care Physician History of Present Illness 47yM with prior IVDA and prior endocarditis who presented with right forearm abscess and severe sepsis. admitted under obs for additional work-up. complained of persistent and severe neck pain for which MRI c-spine was ordered and demonstrates large cervical epidural abscess and discitis. I was called to evaluate the patient. he is significantly weak in his upper and lower extremities and has severe back pain. I discussed the case with radiology, infectious disease, and neurosurgery. made NPO and plan for emergent cervical decompression and cage fusion. discussed with ID: will change zosyn to cefepime for CLASSIFICATION ANALYST penetrance. continue to follow up cultures and changed 2d echo to "urgent" from "routine" to rule out vegetations. patient is altered from severe sepsis and no additional history is obtainable. ROS is very limited, but + for arm/leg weakness, neck pain, back pain. Review of Systems ROS Limitations: Clinical Condition, Altered Mental Status Constitutional: COMPLAINS OF: Fever Musculoskeletal: COMPLAINS OF: Back pain, Neck pain Neurologic: COMPLAINS OF: Abnormal gait, Localized weakness Past Family Social History Allergies: Coded Allergies: No Known Allergies (Unverified , 12/06/17) Past Medical History IV drug abuse History of endocarditis Past Surgical History Left arm I&D Reported Medications none Active Ordered Medications See MAR Family History Negative for CAD/DM Social History Occasional tobacco. Denies alcohol. Positive marijuana, IV opiates and IV methamphetamine. Physical Exam Vital Signs Vital Signs Date Time Temp Pulse Resp B/P (MAP) Pulse Ox O2 Delivery O2 Flow Rate FiO2 12/07/17 15:29 85 18 149/93 (111) 97 12/07/17 12:45 86 20 148/84 (105) 95 12/07/17 08:30 88 20 151/84 (106) 93 12/06/17 22:00 80 16 166/96 (119) 96 Room Air 12/06/17 21:00 86 16 144/85 (104) 96 Nasal Cannula 12/06/17 20:02 97.9 85 16 153/96 (115) 94 Nasal Cannula 3.00 12/06/17 20:00 88 Room Air 12/06/17 19:51 16 12/06/17 19:42 105 16 140/95 (110) 95 Physical Exam GENERAL: Middle-age male who appears much older than stated age, lying in bed, in acute distress due to back pain and new weakness HEENT: Normocephalic. Atraumatic. Pupils equal, round, reactive, conjugate. Mucous membranes are dry NECK: Trachea is midline. There is no JVD. Significant midline tenderness to palpation of the back of the neck. This extends all the way down to the T2, 3 level CHEST: Equal chest rise. Nasal cannula oxygen. FVC 700 cc, NIF -20 CARDIOVASCULAR: Normal rate, regular rhythm. Sinus by telemetry. ABDOMEN: Soft, nontender, nondistended. No guarding. MUSCULOSKELETAL: Pulses 2+. No peripheral edema. NEUROLOGICAL: RASS -2. Arouses and answers intermittent and basic questions, but quite altered. Musculoskeletal strength in the left upper extremity is 3/5 , right upper extremity is 4-/5, bilateral lower extremities are 4/5. Sensation appears to be intact grossly. SKIN: Multiple abrasions and abscesses in various stages of healing, the largest is on the right forearm which is approximately 3 cm x 2 cm and has recently been incised and drained with packing still in the wound. Track mcclain present. Laboratory Laboratory Tests Test 12/06/17 20:00 12/06/17 20:10 12/06/17 22:50 12/07/17 01:15 White Blood Count 17.8 Red Blood Count 5.08 Hemoglobin 13.6 Hematocrit 40.5 Mean Corpuscular Volume 79.8 Mean Corpuscular Hemoglobin 26.8 Mean Corpuscular Hemoglobin Concent 33.6 Red Cell Distribution Width 16.4 Platelet Count 121 Mean Platelet Volume 9.5 Neutrophils (%) (Auto) 92.8 Lymphocytes (%) (Auto) 3.9 Monocytes (%) (Auto) 2.1 Eosinophils (%) (Auto) 1.0 Basophils (%) (Auto) 0.2 Neutrophils # (Auto) 16.5 Lymphocytes # (Auto) 0.7 Monocytes # (Auto) 0.4 Eosinophils # (Auto) 0.2 Basophils # (Auto) 0.0 CBC Comment DIFF FINAL Differential Comment Prothrombin Time 12.1 Prothromb Time International Ratio 1.2 Activated Partial Thromboplast Time 27.4 Blood Urea Nitrogen 75 Creatinine 2.94 Random Glucose 91 Total Protein 7.9 Albumin 2.2 Calcium Level 8.4 Magnesium Level 3.0 Alkaline Phosphatase 191 Aspartate Amino Transf (AST/SGOT) 46 Alanine Aminotransferase (ALT/SGPT) 29 Total Bilirubin 1.9 Sodium Level 129 Potassium Level 3.0 Chloride Level 90 Carbon Dioxide Level 25.0 Anion Gap 14 Estimat Glomerular Filtration Rate 23 Lactic Acid Level 2.7 1.3 Total Creatine Kinase 155 Creatine Kinase MB 8.6 Troponin I 0.03 C-Reactive Protein 18.00 Lipase 47 Ethyl Alcohol Level LESS THAN 3 Erythrocyte Sedimentation Rate 43 B-Type Natriuretic Peptide 155 Urine Color YELLOW Urine Turbidity CLOUDY Urine pH 5.0 Urine Specific [place] 1.012 Urine Protein NEG Urine Glucose (UA) 50 Urine Ketones NEG Urine Occult Blood SMALL Urine Nitrite NEG Urine Bilirubin NEG Urine Urobilinogen 4.0 OR GREATER Urine Leukocyte Esterase NEG Urine RBC 4 Urine WBC 9 Urine Squamous Epithelial Cells <1 Urine Amorphous Sediment RARE Urine Bacteria RARE Urine Hyaline Casts 12 Urine Mucus FEW Microscopic Urinalysis Comment CULTURE INDICATED Urine Opiates Screen POS Urine Barbiturates Screen NEG Urine Amphetamines Screen POS Urine Benzodiazepines Screen NEG Urine Cocaine Screen NEG Urine Cannabinoids Screen NEG Test 12/07/17 11:30 White Blood Count 14.5 Red Blood Count 4.14 Hemoglobin 10.9 Hematocrit 33.2 Mean Corpuscular Volume 80.2 Mean Corpuscular Hemoglobin 26.3 Mean Corpuscular Hemoglobin Concent 32.8 Red Cell Distribution Width 16.6 Platelet Count 95 Mean Platelet Volume 9.1 Neutrophils (%) (Auto) 91.8 Lymphocytes (%) (Auto) 3.3 Monocytes (%) (Auto) 3.7 Eosinophils (%) (Auto) 1.0 Basophils (%) (Auto) 0.2 Neutrophils # (Auto) 13.3 Lymphocytes # (Auto) 0.5 Monocytes # (Auto) 0.5 Eosinophils # (Auto) 0.1 Basophils # (Auto) 0.0 CBC Comment AUTO DIFF Differential Total Cells Counted 100 Neutrophils % (Manual) 67 Band Neutrophils % 23 Lymphocytes % 5 Monocytes % 1 Neutrophils # (Manual) 13.6 Metamyelocytes 2 Myelocytes 2 Differential Comment FINAL DIFF MANUAL Toxic Vacuolation PRESENT Platelet Estimate LOW Platelet Morphology Comment NORMAL Ovalocytes [place] Cells 1+ Keratocytes OCC Blood Urea Nitrogen 68 Creatinine 2.39 Random Glucose 116 Calcium Level 7.8 Sodium Level 133 Potassium Level 3.0 Chloride Level 98 Carbon Dioxide Level 22.2 Anion Gap 13 Estimat Glomerular Filtration Rate 29 Date/Time Source Procedure Growth Status 12/07/17 13:35 Blood Peripheral Aerobic Blood Culture Pending Received 12/07/17 13:35 Blood Peripheral Anaerobic Blood Culture Pending Received 12/07/17 01:15 Urine Random Urine Urine Culture Pending Received 12/06/17 22:40 Wound Arm Gram Stain - Final Resulted 12/06/17 22:40 Wound Arm Wound Culture - Preliminary Resulted Result Diagram: 12/07/17 1130 12/07/17 1130 Imaging Last Impressions Cervical Spine MRI 12/07/17 0000 Signed Impressions: CONCLUSION: 1. Suspected discitis involving the C6-C7 level and possibly the C5-C6 level. 2. Large anterior epidural abscess extending from the tip of the dens down to the T2 level this causes moderate to severe stenosis throughout the mid and low er cervical and upper thoracic spine. 3. Anterior prevertebral abscess seen to the left of midline extending from th e C5 through T1 levels. There is fairly extensive prevertebral soft tissue swel ling. Chest CT 12/06/179 Signed Impressions: CONCLUSION: 1. There are numerous patchy infiltrates throughout the lungs left greater eliana n right. Some of the infiltrates are borderline cavitary particularly in the le ft upper lobe. Moderate-sized bilateral pleural effusions. The scattered pulmon gus disease is new since February 2017 Chest X-Ray 12/06/17 195 Signed Impressions: CONCLUSION: Interval development of bilateral effusions and patchy airspace disease since A pril 2017. Renal Ultrasound 12/06/17 0000 Signed Impressions: CONCLUSION: 1. Both kidneys are echogenic suggesting chronic medical renal disease. Small cyst lower pole right kidney Septic Shock Reassessment Septic shock perfusion: reassessment completed Assessment and Plan Assessment and Plan Assessment: 47-year-old male with history of IV drug abuse and prior endocarditis presents with severe sepsis and large cervical epidural abscess with evidence of new and worsening acute upper and lower extremity myelopathy. The patient is critically ill with life-threatening and limb threatening myelopathy and if his myelopathy progresses he may be left with permanent neurologic deficits and partial quadriplegia. N.p.o. for decompression. IV antibiotics. Currently not in respiratory distress, however he may progress to this and it may be jha to leave him intubated postoperatively. Plan by systems: Neurologic: Cervical epidural abscess and discitis IV opiate abuse IV amphetamine abuse Acute metabolic encephalopathy secondary to severe sepsis Frequent neurochecks Neurosurgery: Dr. Chu For emergent cervical decompression Respiratory: Nasal cannula oxygen as tolerated for goal SPO2 greater than 90% Watch closely for diaphragmatic weakness Cardiovascular: Severe sepsis 1 L NS bolus now Maintenance IV fluids Renal: Acute kidney injury Secondary to sepsis and bacteremia -- Strict I/Os FEN/GI: Acute intravascular volume depletion Acute protein calorie malnutrition: Severe N.p.o. for surgery ICU electrolyte protocol Daily BMP Maintenance IV fluids Heme/ID: Severe sepsis Gram-positive bacteremia Cervical epidural abscess/discitis History of endocarditis Follow-up 2D echo Vancomycin with pharmacy dosing Change Zosyn to cefepime IV Would narrow spectrum and sensitivities come back ID consult: Dr. Szymanski following Endocrine: -- SSI if required for hyperglycemia Prophylaxis: GI Prophylaxis Pepcid DVT Prophylaxis -- SCDs Holding pharmacologic DVT prophylaxis in the setting of neurosurgery Lines: Peripheral IVs. Dispo: Admit ICU. Very critically ill and worsening acute myelopathy. This patient remains critically ill with one or more organ systems which are or may become a threat to life. I have spent in excess of 48 minutes discontinuously in the care and management of this patient. This time is exclusive of procedures, and includes, but is not limited to, evaluation of the patient, review of the medical record, discussions with family, consultants, nursing staff, or respiratory therapy, and documentation in the medical record. Esteban Melissa MD Dec 07, 2017 17:18
[2017-12-07] MEDS ORDERED: SODIUM CHLOR 0.9% 1000 ML INJ 1,000 ML IV ONE (17:30)
[2017-12-07] MEDS: CEFEPIME INJ 2,000 MG in SODIUM CHLORIDE 0.9% INJ 100 ML IV SCH (18:05)
[2017-12-07 18:16] LABS: INTERNATIONAL NORMALIZED RATIO 1.2 RATIO; PROTHROMBIN TIME - PATIENT 12.2 SEC (9.8-11.6)
[2017-12-07 18:45] VITALS: BP 176/110; PULSE 87; RESP 21; O2SAT 99
[2017-12-07 20:00] VITALS: BP 187/100; PULSE 101; PULSE 102; RESP 24; TEMP 99; O2SAT 94
[2017-12-07] MEDS: HYDROmorphone HCL PF 2 MG/ML VIAL IV PRN (20:31)
[2017-12-07 20:34] VITALS: O2SAT 98
[2017-12-07] MEDS ORDERED: LIDOCAINE 1%/EPINEPHrine 1:100,000 SOLN 20 ML VIAL ONE (20:55)
[2017-12-07] MEDS ORDERED: VANCOMYCIN INJ 1,000 MG in SODIUM CHLOR 0.9% 250 ML INJ 250 ML IV SCH (21:00)
[2017-12-07] MEDS: REMOVE OLD LIDOCAINE PATCH T-DERMAL SCH (21:00)
[2017-12-07] MEDS ORDERED: THROMBIN (TOPICAL) 5,000 UNIT VIAL ONE (21:02)
[2017-12-07] MEDS ORDERED: GELFOAM SIZE 100 ONE ×2 (21:02→21:56)
[2017-12-07] MEDS ORDERED: GENTAMICIN SULFATE 80 MG/2 ML VIAL ONE (21:02)
[2017-12-07] MEDS ORDERED: LABETALOL HCL 100 MG/20 ML VIAL ONE (21:28)
[2017-12-07] MEDS ORDERED: SUFentanil INJ 250 MCG/5 ML AMP ONE (21:37)
[2017-12-07] MEDS ORDERED: PROPOFOL 500 MG/50 ML INJ 150 ML ONE (21:38)
[2017-12-07] MEDS ORDERED: KETAMINE HCL 500 MG/10 ML VIAL ONE (21:46)
--- NOTE | 2017-12-07 21:48 | PD.CONS ---
HPI Service Neurosurgery Consult Requested By Day Care Worker Reason for Consult Cervical epidural abscess, discitis Primary Care Physician No Primary Care Physician History of Present Illness 47-year-old male with a history of IV drug abuse. Multiple admissions since March 2017 for several areas of cutaneous, soft tissue abscess formation, sepsis. Recent admission September 2017 for antecubital abscesses. Presents to the emergency department 12/06/2017 with generalized fatigue, abdominal pain, productive cough. Now complains of neck pain. Positive progressive numbness, dysesthesia upper extremities with quadriparesis noted today. Review of Systems Accurate review of systems cannot be obtained from the patient. He is confused. Complains of neck pain upper extremity pain and numbness Past Family Social History Allergies: Coded Allergies: No Known Allergies (Unverified , 12/06/17) Past Medical History History of bacterial endocarditis Hypertension Multiple cutaneous, soft tissue abscesses. Past Surgical History Multiple procedures for cutaneous and soft tissue abscesses Reported Medications Reported Meds & Active Scripts Active No Active Prescriptions or Reported Medications Family History Unable to obtain accurate family history from the patient Social History No alcohol or tobacco Multiple illicit substance abuse, methamphetamine, marijuana, opioids, IV drug use Physical Exam Vital Signs Vital Signs Date Time Temp Pulse Resp B/P (MAP) Pulse Ox O2 Delivery O2 Flow Rate FiO2 12/07/17 20:34 98 12/07/17 18:45 87 21 176/110 (132) 99 12/07/17 15:29 85 18 149/93 (111) 97 12/07/17 12:45 86 20 148/84 (105) 95 12/07/17 08:30 88 20 151/84 (106) 93 12/06/17 22:00 80 16 166/96 (119) 96 Room Air Physical Exam General: Rather disheveled middle-aged male, appears very uncomfortable, confused. Respirations: Clear and regular. Occasional cough Cardiac: Regular heart rate Abdomen: Mild to moderate diffuse tenderness. Nondistended. Extremities: Multiple cutaneous lesions throughout the upper greater than lower extremities, multiple areas of scar tissue related to apparent previous infections. At least mild diffuse cutaneous erythema in the upper greater than lower extremities. Neurologic: Moderate lethargy Moderate confusion Arouses brief to voice Answers a few simple questions. Many inappropriate responses. Significant neck tenderness. Neck pain with any cervical range of motion or shoulder range of motion. Appears to have significant dysesthesia to light touch in the distal upper extremities. Does not indicate any sensation to light or sharp touch over the abdomen or lower extremities. Motor function 4/5 deltoids and biceps with complaint of neck pain. 0-1/5 triceps, 1-2/5 hand intrinsics. He has mild to moderate spontaneous movement of the lower extremities, mostly 3/ 5 bilateral gastrocsoleus and tibialis anterior, 2/5 iliopsoas and quadriceps Gallagher's response absent bilateral Several beats ankle clonus bilateral Plantar responses are extensor bilateral Increase muscle tone bilateral lower extremities Laboratory Laboratory Tests Test 12/06/17 22:50 12/07/17 01:15 12/07/17 11:30 12/07/17 17:55 Lactic Acid Level 1.3 Urine Color YELLOW Urine Turbidity CLOUDY Urine pH 5.0 Urine Specific [place] 1.012 Urine Protein NEG Urine Glucose (UA) 50 Urine Ketones NEG Urine Occult Blood SMALL Urine Nitrite NEG Urine Bilirubin NEG Urine Urobilinogen 4.0 OR GREATER Urine Leukocyte Esterase NEG Urine RBC 4 Urine WBC 9 Urine Squamous Epithelial Cells <1 Urine Amorphous Sediment RARE Urine Bacteria RARE Urine Hyaline Casts 12 Urine Mucus FEW Microscopic Urinalysis Comment CULTURE INDICATED Urine Opiates Screen POS Urine Barbiturates Screen NEG Urine Amphetamines Screen POS Urine Benzodiazepines Screen NEG Urine Cocaine Screen NEG Urine Cannabinoids Screen NEG White Blood Count 14.5 Red Blood Count 4.14 Hemoglobin 10.9 Hematocrit 33.2 Mean Corpuscular Volume 80.2 Mean Corpuscular Hemoglobin 26.3 Mean Corpuscular Hemoglobin Concent 32.8 Red Cell Distribution Width 16.6 Platelet Count 95 Mean Platelet Volume 9.1 Neutrophils (%) (Auto) 91.8 Lymphocytes (%) (Auto) 3.3 Monocytes (%) (Auto) 3.7 Eosinophils (%) (Auto) 1.0 Basophils (%) (Auto) 0.2 Neutrophils # (Auto) 13.3 Lymphocytes # (Auto) 0.5 Monocytes # (Auto) 0.5 Eosinophils # (Auto) 0.1 Basophils # (Auto) 0.0 CBC Comment AUTO DIFF Differential Total Cells Counted 100 Neutrophils % (Manual) 67 Band Neutrophils % 23 Lymphocytes % 5 Monocytes % 1 Neutrophils # (Manual) 13.6 Metamyelocytes 2 Myelocytes 2 Differential Comment FINAL DIFF MANUAL Toxic Vacuolation PRESENT Platelet Estimate LOW Platelet Morphology Comment NORMAL Ovalocytes [place]zy Cells 1+ Keratocytes OCC Blood Urea Nitrogen 68 Creatinine 2.39 Random Glucose 116 Calcium Level 7.8 Sodium Level 133 Potassium Level 3.0 Chloride Level 98 Carbon Dioxide Level 22.2 Anion Gap 13 Estimat Glomerular Filtration Rate 29 Prothrombin Time 12.2 Prothromb Time International Ratio 1.2 Activated Partial Thromboplast Time 29.9 Date/Time Source Procedure Growth Status 12/07/17 13:35 Blood Peripheral Aerobic Blood Culture Pending Received 12/07/17 13:35 Blood Peripheral Anaerobic Blood Culture Pending Received 12/07/17 01:15 Urine Random Urine Urine Culture Pending Received 12/06/17 22:40 Wound Arm Gram Stain - Final Resulted 12/06/17 22:40 Wound Arm Wound Culture - Preliminary Resulted Result Diagram: 12/07/17 1130 12/07/17 1130 Imaging Last Impressions Cervical Spine MRI 12/07/17 0000 Signed Impressions: CONCLUSION: 1. Suspected discitis involving the C6-C7 level and possibly the C5-C6 level. 2. Large anterior epidural abscess extending from the tip of the dens down to the T2 level this causes moderate to severe stenosis throughout the mid and low er cervical and upper thoracic spine. 3. Anterior prevertebral abscess seen to the left of midline extending from th e C5 through T1 levels. There is fairly extensive prevertebral soft tissue swel ling. Chest CT 12/06/172158 Signed Impressions: CONCLUSION: 1. There are numerous patchy infiltrates throughout the lungs left greater eliana n right. Some of the infiltrates are borderline cavitary particularly in the le ft upper lobe. Moderate-sized bilateral pleural effusions. The scattered pulmon gus disease is new since February 2017 Chest X-Ray 12/06/17 195 Signed Impressions: CONCLUSION: Interval development of bilateral effusions and patchy airspace disease since A pril 2017. Renal Ultrasound 12/06/17 0000 Signed Impressions: CONCLUSION: 1. Both kidneys are echogenic suggesting chronic medical renal disease. Small cyst lower pole right kidney Assessment and Plan Assessment and Plan Impression: 1. Extensive cervical and upper thoracic anterior epidural abscess with significant canal and cord compromise. 2. C5-6 and C6-7 discitis. Significant destruction of the C6 vertebral body with osteomyelitis 3. History of IV drug abuse 4. History of bacterial endocarditis Plan: No family available for review of the patient's findings and treatment plan. Patient himself is confused. It is considered medically necessary on an urgent basis to proceed with surgical evacuation of the epidural abscess. Anticipate C5-6 and C6-7 anterior cervical discectomy, probable C6 corpectomy with vertebral reconstruction, carbon fiber cage, allograft bone, anterior instrumentation. Emergency consent obtained. Discussed with gas line repairer Ryan Chu MD Dec 07, 2017 21:48
[2017-12-07] MEDS: VANCOMYCIN INJ 1,250 MG in SODIUM CHLOR 0.9% 250 ML INJ 250 ML IV SCH (22:30)
--- NOTE | 2017-12-07 22:51 | EKG ---
Date Performed: 12/07/2017 Time Performed: 11:17:16 PTAGE: 47 years EKG: Sinus rhythm WITH OCCASIONAL VENTRICULAR PREMATURE COMPLEXES POSSIBLE RIGHT VENTRICULAR CONDUCTION DELAY MODERATE T-WAVE ABNORMALITY, CONSIDER ANTERIOR ISCHEMIA ABNORMAL ECG PREVIOUS TRACING : 12/06/2017 19.50 DOCTOR: Erick Patiño Interpretating Date/Time 12/07/2017 22:49:55
--- NOTE | 2017-12-07 23:06 | EKG ---
Date Performed: 12/06/2017 Time Performed: 19:50:36 PTAGE: 47 years EKG: ECTOPIC ATRIAL RHYTHM WITH SHORT NE INTERVAL WITH FREQUENT VENTRICULAR PREMATURE COMPLEXES POSSIBLE LEFT ATRIAL ENLARGEMENT INCOMPLETE RIGHT BUNDLE BRANCH BLOCK MINIMAL ST DEPRESSION ABNORMAL RHYTHM ECG PREVIOUS TRACING : 09/21/2017 20.00 DOCTOR: Erick Patiño Interpretating Date/Time 12/07/2017 22:57:27
[2017-12-08] VITALS (20 sets, daily range): BP systolic 121–134; BP diastolic 61–75; PULSE 61–89; RESP 20–26; TEMP 97.5–98.3; O2SAT 96–100
[2017-12-08] MEDS: PROPOFOL 1000 MG/100 ML IV PRN ×6 (01:40→18:15)
[2017-12-08] MEDS ORDERED: PHENYLEPHRINE HCL 10 MG/ML VIAL ONE (01:41)
[2017-12-08] MEDS ORDERED: PROPOFOL 500 MG/50 ML INJ 0 ML ONE (01:41)
--- NOTE | 2017-12-08 01:58 | PD.OP ---
Operative Report Date of Surgery: Dec 08, 2017 Preoperative Diagnosis: (1) Abscess in epidural space of cervical spine Cervical epidural abscess Cervical subdural abscess Postoperative Diagnosis: 1. Cervical epidural abscess 2. Cervical intradural abscess 3. C5-6 and C6-7 discitis Procedure: 1. C5-6 and C6-7 anterior cervical discectomy, evacuation of cervical epidural and intradural abscess. 2. C5-6 and C6-7 anterior interbody fusion, allograft bone 3. C5-7 anterior cervical instrumentation Anesthesia: General Surgeon: Ryan Chu Certified Procedural Coder(s): Bree Castañeda Operation and Findings: Findings: Extensive cervical epidural abscess. Area of loculated intradural abscess at the C6-7 level. Procedure in detail The patient was brought into the operating room and positioned in supine position on the 3080 table with the head and neck in neutral position. Mixon catheter was placed. Lines were established by Anesthesia. Gen. endotracheal anesthesia was induced without difficulty, taking care not to significantly flex or extend the patient's neck during intubation and positioning. Leads for intraoperative neuro monitoring were placed and a baseline study obtained. All extremities were appropriately padded. The neck and upper chest were shaved with clippers and sterilely prepped and draped. Appropriate timeout procedure was performed with all personnel present and in agreement 1% Xylocaine with epinephrine was used for local infiltration over the incision site which was made transversely at the left C6 level and carried sharply down through the platysma muscle. The exposure was continued medial to the sternocleidomastoid muscle and carotid artery, and lateral to the trachea and esophagus. The prevertebral fascia was elevated away from the anterior longitudinal ligament with a Kitner sponge. There was significant inflammation of the anterior longitudinal ligament and adjacent structures. The longus coli muscle on each side was elevated with the Salguero elevator. Upon elevation of the longus coli muscle on the left side, extensive abscess came forth which was collected for specimen. The self-retaining retractor was placed with the blades beneath the longus coli muscle on each side. The appropriate levels were confirmed with intraoperative C-arm and preoperative imaging studies. The microscope was brought into place and used for the remainder of the procedure including the closure. The 14 mm distraction pins were used as needed for gentle distraction during the procedure. The procedure was performed sequentially at the C5-6 and C6-7 levels. At each level the anterior osteophyte was resected with the Leksell rongeur. The disc and annulus was incised with a 15 blade knife and discectomy performed with pituitary biopsy forceps and straight and angled curettes. The disc material was very soft, abnormal in appearance consistent with discitis. The TPS drill with the 5 mm barrel bur was used to decorticate the endplates and removed the majority of the osteophyte along the anterior spinal canal as well as the right and left uncovertebral joint. The thin ligament dissector was used to free up the posterior annulus and ligament from the vertebral body margin. There was significant inflammation of the posterior annulus and posterior longitudinal ligament. Significant infectious debris was present. The remainder of the resection of the posterior annulus and ligament as well as the posterior osteophyte and bilateral uncovertebral joint was performed with the 2 and 3 mm thin footplate Kerrison rongeurs. A component of herniated nucleus pulposus was encountered posterior to the annulus and was lifted away from the thecal sac with the thickened ligament dissector and removed. Upon elevation of the posterior longitudinal ligament at the C5-6 level, additional extensive abscess came forth and was removed with suction and copious antibiotic irrigation. At the C6-7 level, there was additional component of epidural abscess. However the dura appeared to be yellowish, thickened, inflamed in appearance. Due to suspicion of intradural abscess, small incision was made in the anterior ventral dura after copious antibiotic irrigation. A moderate amount of additional subdural abscess came forth. The arachnoid appeared intact and there was no CSF leakage. Significant posterior osteophyte was encountered and extensively removed. The posterior vertebral bodies were undercut with the Kerrison rongeur and the TPS drill with the 4 mm lesley bur as needed to fully decompress the anterior spinal canal. The appropriate size V G2 bone graft was then placed at each level with a good fit of the graft. The blunt nerve hook was used to probe beneath the bone graft to ensure that there was no impingement on the thecal sac or exiting nerve roots. The appropriate size Precision anterior cervical plate was then chosen and the bone screws were placed with the 14 mm fixed screws at the caudal most level and the 14 mm variable screws at the cephalad level of the decompression. The screws were firmly secured and the locking cams engaged. The entire construct was checked with intraoperative C-arm and felt to be satisfactory. The 10 Iranian drain was brought out through a small incision in the left lower neck and secured to the skin with nylon suture and attached to sterile suction. The closure was performed with 3-0 Vicryl running for the platysma and interrupted for the subcutaneous closure, with 4-0 Vicryl running for the subcuticular closure. A dressing of sterile Mastisol, Steri-Strips, and Primapore dressing was placed. The patient was placed into a cervical collar, and taken to recovery room in stable condition. All counts were correct at the end of the case. Estimated blood loss was 150 cc No specimen was sent to pathology. Intraoperative neuro monitoring remained stable during the procedure. Ryan Chu MD Dec 08, 2017 01:58
--- NOTE | 2017-12-08 02:10 | RADRPT ---
EXAM DATE: 12/08/2017 2:03 AM EDT AGE/SEX: 47 years / Male INDICATIONS: Post central line placement. CLINICAL DATA: This is the patient's subsequent encounter. Patient reports that signs and symptoms h ave been present for 2 days and indicates a pain score of 0/10. MEDICAL/SURGICAL HISTORY: Hypertension. MRSA. Abscess. IV drug user . c5-c6 acdf, hand surger y. COMPARISON: [facility] [place], 12/06/2017. . FINDINGS: Single view the chest demonstrates the endotracheal tube, nasogastric tube and left subclavian centra l line are in good position. There is an interface in the left lateral chest suspicious for pneumotho rax. There is a pleural effusion at the left lung apex. Moderate pleural effusion on the right. CONCLUSION: Some air overlying the left pleura laterally suspicious for lower lobe pneumothorax. Bilateral pleura l effusions. ET tube in good position. Electronically signed by: Andres Powell MD 12/08/2017 2:08 AM EDT
[2017-12-08] MEDS: SODIUM CHLOR 0.9% 1000 ML INJ 1,000 ML IV SCH ×3 (02:29→14:22)
[2017-12-08] MEDS ORDERED: PHENYLEPHRINE 40 MG in D5W 500 ML IV PRN (02:30)
[2017-12-08] MEDS ORDERED: TERBUTALINE INJ 1 MG/ML AMP SQ PRN (02:30)
--- NOTE | 2017-12-08 02:59 | RADRPT ---
EXAM DATE: 12/08/2017 2:26 AM EDT AGE/SEX: 47 years / Male INDICATIONS: C5, C6 ACDF CLINICAL DATA: This is the patient's subsequent encounter. Patient reports that signs and symptoms h ave been present for 2 days and indicates a pain score of Nonresponsive. MEDICAL/SURGICAL HISTORY: Hypertension. MRSA. Abscess. IV drug user . c5-c6 acdf, hand surger y. COMPARISON: No prior exams available for comparison. FINDINGS: There are 17 films submitted for interpretation. Intraoperatively the intervertebral disc spaces at C 5-6 and C6-7 are located CONCLUSION: Inter vertebral discs are in place Electronically signed by: Andres Powell MD 12/08/2017 2:57 AM EDT
[2017-12-08] MEDS: CEFEPIME INJ 2,000 MG in SODIUM CHLORIDE 0.9% INJ 100 ML IV SCH ×3 (05:44→21:33)
[2017-12-08 06:38] LABS: HEMATOCRIT 30.9 % (39.0-51.0); HEMOGLOBIN 9.9 GM/DL (13.0-17.0); MEAN CELL VOLUME 81.7 FL (80.0-100.0); MEAN CORPUSCULAR HEMOGLOBIN 26.1 PG (27.0-34.0); MEAN CORPUSCULAR HGB CONC 31.9 % (32.0-36.0); MEAN PLATELET VOLUME 9.9 FL (7.0-11.0); PLATELET COUNT 102 TH/MM3 (150-450); RED BLOOD COUNT 3.79 MIL/MM3 (4.50-5.90); RED CELL DISTRIBUTION WIDTH 16.6 % (11.6-17.2); WHITE BLOOD COUNT 21.6 TH/MM3 (4.0-11.0)
[2017-12-08 06:54] LABS: INTERNATIONAL NORMALIZED RATIO 1.3 RATIO; PROTHROMBIN TIME - PATIENT 12.7 SEC (9.8-11.6)
[2017-12-08 06:59] LABS: ALBUMIN 1.4 GM/DL (3.4-5.0); AST (GOT) 28 U/L (15-37); BICARBONATE 22.5 MEQ/L (21.0-32.0); BLOOD UREA NITROGEN 66 MG/DL (7-18); CALCIUM 7.7 MG/DL (8.5-10.1); CHLORIDE 104 MEQ/L (98-107); CREATININE 2.22 MG/DL (0.60-1.30); GLOMERULAR FILTRATION RATE 32 ML/MIN (>89); GLUCOSE,RANDOM 124 MG/DL (74-106); SODIUM (NA) 140 MEQ/L (136-145)
[2017-12-08 07:00] LABS: ALT (GPT) 16 U/L (12-78)
[2017-12-08 07:02] LABS: ALKALINE PHOSPHATASE 172 U/L (45-117); TOTAL BILIRUBIN ADULT 1.2 MG/DL (0.2-1.0)
[2017-12-08] MEDS: ENOXAPARIN SODIUM 30 MG/0.3 ML SYRINGE SQ SCH (09:00)
[2017-12-08] MEDS: DOCUSATE SODIUM 50 MG/SENNA 8.6 MG TAB PO SCH ×2 (09:00→21:32)
[2017-12-08] MEDS: SODIUM CHLORIDE 0.9% FLUSH 10 ML FLUSH IV FLUSH SCH ×2 (09:00→21:32)
--- NOTE | 2017-12-08 09:49 | HHI.IDPN ---
Subjective Subjective Remarks Patient is a 47-year-old male, with known history of active IV drug use, presented to the hospital complaining of an infection in his right forearm were he had injected about 3 days ago. He also has had some subjective complaints of fever and chills. Patient apparently also has been having problem with pain in the neck area that goes to his shoulder worse on the left side than on the right side, as well as left-sided chest pain. He denies any sore throat or any respiratory complaint as far as cough or congestion. Has not had any nausea or vomiting. He is also has some lower rib cage pain. Denies any urinary complaints. On presentation he was found to have an abscess in his right forearm, and had an I&D done. CT of the chest is showing some infiltrates as well as some cavitary lesions and some round lesions. Chest x-ray showing some bilateral infiltrates. His creatinine was also elevated, and renal ultrasound did not show any obstruction, and possibly has some findings of medical renal disease. 2 blood cultures done on admission are now reported as growing gram- positive cocci in pairs and clusters. Patient's drug screen is positive for amphetamines and opiates. 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 He has had multiple infections in his upper extremity related to injections from his IV drug use. The last admission for infection in his arm was September 2017. He had an echo done at that time which did not show any vegetation in the mitral valve. Infectious disease consultation has been requested to evaluate the patient. Notes reviewed D/W RN MRI with large cervical epidural abscess Had surgery last night: 1. C5-6 and C6-7 anterior cervical discectomy, evacuation of cervical epidural and intradural abscess. 2. C5-6 and C6-7 anterior interbody fusion, allograft bone 3. C5-7 anterior cervical instrumentation Temps on low side On the vent Sedated BC with MRSA Arm C/S MRSA and GNR Repeat BC pending OR C/S pending WBC up to 21K Antibiotics Vancomycin Cefepime Current Medications Medications (Trade) Dose Ordered Sig/Brennon Route Start Time Stop Time Status Last Admin Pharmacy Profile Note 0 ml @ 0 mls/hr UNSCH OTHER 12/06/17 22:30 Sodium Chloride 1,000 ml @ 125 mls/hr Q8H IV 12/06/17 22:22 12/08/17 02:29 (NS Flush) 2 ml UNSCH PRN IV FLUSH 12/06/17 22:30 (NS Flush) 2 ml BID IV FLUSH 12/07/17 09:00 12/07/17 20:33 (Tylenol) 650 mg Q4H PRN PO 12/06/17 22:30 12/07/17 07:51 (Zofran Odt) 4 mg Q6H PRN PO 12/06/17 22:30 (Narcan Inj) 0.4 mg UNSCH PRN IV PUSH 12/06/17 22:30 (Pearl-Colace) 1 tab BID PO 12/07/17 09:00 12/07/17 07:50 (Milk Of Magnesia Liq) 30 ml Q12H PRN PO 12/06/17 22:30 (Senokot) 17.2 mg Q12H PRN PO 12/06/17 22:30 (Dulcolax Supp) 10 mg DAILY PRN RECTAL 12/06/17 22:30 (Lactulose Liq) 30 ml DAILY PRN PO 12/06/17 22:30 [place] [facility] [place] Info[place] SPECIFIC LAB TO BE DRAWN: VANCO TROUGH DATE TO BE DRForeign.. ONCE ONCE .XX 12/09/17 20:45 12/09/17 20:46 (Lidoderm 5% Patch.12 Hr) 1 patch DAILY T-DERMAL 12/07/17 10:15 12/07/17 11:27 (Lovenox Inj) 30 mg DAILY SQ 12/07/17 11:00 12/07/17 11:28 Miscellaneous Information 1 Q12HR T-DERMAL 12/07/17 21:00 12/07/17 21:00 Vancomycin HCl 1250 mg/Sodium Chloride 262.5 ml @ 250 mls/hr Q24H IV 12/07/17 21:00 12/07/17 22:30 Cefepime HCl 2000 mg/Sodium Chloride 100 ml @ 200 mls/hr Q12H IV 12/07/17 18:00 12/08/17 05:44 (Dilaudid Pf Inj) 1 mg Q4H PRN IV 12/07/17 20:30 12/07/17 20:31 Phenylephrine HCl 40 mg/Dextrose 500 ml @ 30 mls/hr TITRATE PRN IV 12/08/17 02:30 12/08/17 01:45 (Brethine Inj) 1 mg UNSCH PRN SQ 12/08/17 02:30 Propofol 100 ml @ 24 mls/hr TITRATE PRN IV 12/08/17 02:45 12/08/17 05:44 Past Medical History Hypertension: Untreated. IV drug abuser Skin abscesses related to IVDU S/P Rx MV IE Past Surgical History Bilateral wrist abscess incision and drainage/washout Allergies: Coded Allergies: No Known Allergies (Unverified , 12/06/17) Objective . Vital Signs Date Time Temp Pulse Resp B/P (MAP) Pulse Ox O2 Delivery O2 Flow Rate FiO2 12/08/17 08:59 99 Ventilator 40 12/08/17 08:18 100 60 12/08/17 08:00 64 26 124/70 (88) 98 12/08/17 08:00 80 12/08/17 06:00 61 12/08/17 04:05 100 80 12/08/17 04:00 65 12/08/17 04:00 100 12/08/17 04:00 97.9 67 22 126/64 (84) 100 12/08/17 03:33 100 12/08/17 03:00 100 12/08/17 02:00 67 12/08/17 01:45 78 90/40 12/08/17 01:09 100 100 12/07/17 20:34 98 12/07/17 20:00 101 12/07/17 20:00 Room Air 12/07/17 20:00 99.0 102 24 187/100 (129) 94 12/07/17 18:45 87 21 176/110 (132) 99 12/07/17 15:29 85 18 149/93 (111) 97 12/07/17 12:45 86 20 148/84 (105) 95 . Laboratory Tests Test 12/06/17 20:00 12/06/17 20:10 12/07/17 11:30 12/08/17 05:05 White Blood Count 17.8 TH/MM3 14.5 TH/MM3 21.6 TH/MM3 Red Blood Count 5.08 MIL/MM3 4.14 MIL/MM3 3.79 MIL/MM3 Hemoglobin 13.6 GM/DL 10.9 GM/DL 9.9 GM/DL Hematocrit 40.5 % 33.2 % 30.9 % Mean Corpuscular Volume 79.8 FL 80.2 FL 81.7 FL Mean Corpuscular Hemoglobin 26.8 PG 26.3 PG 26.1 PG Mean Corpuscular Hemoglobin Concent 33.6 % 32.8 % 31.9 % Red Cell Distribution Width 16.4 % 16.6 % 16.6 % Platelet Count 121 TH/MM3 95 TH/MM3 102 TH/MM3 Mean Platelet Volume 9.5 FL 9.1 FL 9.9 FL Neutrophils (%) (Auto) 92.8 % 91.8 % Lymphocytes (%) (Auto) 3.9 % 3.3 % Monocytes (%) (Auto) 2.1 % 3.7 % Eosinophils (%) (Auto) 1.0 % 1.0 % Basophils (%) (Auto) 0.2 % 0.2 % Neutrophils # (Auto) 16.5 TH/MM3 13.3 TH/MM3 Lymphocytes # (Auto) 0.7 TH/MM3 0.5 TH/MM3 Monocytes # (Auto) 0.4 TH/MM3 0.5 TH/MM3 Eosinophils # (Auto) 0.2 TH/MM3 0.1 TH/MM3 Basophils # (Auto) 0.0 TH/MM3 0.0 TH/MM3 CBC Comment DIFF FINAL AUTO DIFF Differential Comment FINAL DIFF MANUAL Erythrocyte Sedimentation Rate 43 mm/hr Differential Total Cells Counted 100 Neutrophils % (Manual) 67 % Band Neutrophils % 23 % Lymphocytes % 5 % Monocytes % 1 % Neutrophils # (Manual) 13.6 TH/MM3 Metamyelocytes 2 % Myelocytes 2 % Toxic Vacuolation PRESENT Platelet Estimate LOW Platelet Morphology Comment NORMAL Ovalocytes Ozzy Cells 1+ Keratocytes OCC Laboratory Tests Test 12/06/17 20:00 12/06/17 20:10 12/06/17 22:50 12/07/17 11:30 Blood Urea Nitrogen 75 MG/DL 68 MG/DL Creatinine 2.94 MG/DL 2.39 MG/DL Random Glucose 91 MG/DL 116 MG/DL Total Protein 7.9 GM/DL Albumin 2.2 GM/DL Calcium Level 8.4 MG/DL 7.8 MG/DL Magnesium Level 3.0 MG/DL Alkaline Phosphatase 191 U/L Aspartate Amino Transf (AST/SGOT) 46 U/L Alanine Aminotransferase (ALT/SGPT) 29 U/L Total Bilirubin 1.9 MG/DL Sodium Level 129 MEQ/L 133 MEQ/L Potassium Level 3.0 MEQ/L 3.0 MEQ/L Chloride Level 90 MEQ/L 98 MEQ/L Carbon Dioxide Level 25.0 MEQ/L 22.2 MEQ/L Anion Gap 14 MEQ/L 13 MEQ/L Estimat Glomerular Filtration Rate 23 ML/MIN 29 ML/MIN Lactic Acid Level 2.7 mmol/L 1.3 mmol/L Total Creatine Kinase 155 U/L Creatine Kinase MB 8.6 NG/ML Troponin I 0.03 NG/ML C-Reactive Protein 18.00 MG/DL Lipase 47 U/L B-Type Natriuretic Peptide 155 PG/ML Test 12/08/17 05:05 Blood Urea Nitrogen 66 MG/DL Creatinine 2.22 MG/DL Random Glucose 124 MG/DL Total Protein 6.0 GM/DL Albumin 1.4 GM/DL Calcium Level 7.7 MG/DL Alkaline Phosphatase 172 U/L Aspartate Amino Transf (AST/SGOT) 28 U/L Alanine Aminotransferase (ALT/SGPT) 16 U/L Total Bilirubin 1.2 MG/DL Sodium Level 140 MEQ/L Potassium Level 3.6 MEQ/L Chloride Level 104 MEQ/L Carbon Dioxide Level 22.5 MEQ/L Anion Gap 14 MEQ/L Estimat Glomerular Filtration Rate 32 ML/MIN Microbiology Date/Time Source Procedure Growth Status 12/07/17 13:35 Blood Peripheral Aerobic Blood Culture Pending Received 12/07/17 13:35 Blood Peripheral Anaerobic Blood Culture Pending Received 12/07/17 13:30 Blood Peripheral Aerobic Blood Culture Pending Received 12/07/17 13:30 Blood Peripheral Anaerobic Blood Culture Pending Received 12/06/17 20:00 Blood Peripheral Aerobic Blood Culture - Preliminary Gram Positive Cocci Resulted 12/06/17 20:00 Anaerobic Blood Culture - Preliminary Gram Positive Cocci Resulted 12/06/17 19:55 Blood Peripheral Aerobic Blood Culture - Preliminary S. Aureus Mrsa Resulted 12/06/17 19:55 Anaerobic Blood Culture - Preliminary Gram Positive Cocci Resulted 12/07/17 01:15 Urine Random Urine Urine Culture Pending Received 12/07/17 22:58 Abscess Neck Fungal Smear Pending Received 12/07/17 22:58 Abscess Neck Fungal Culture Pending Received 12/07/17 22:58 Abscess Neck Acid Fast Stain Pending Received 12/07/17 22:58 Abscess Neck Mycobacterial Culture Pending Received 12/07/17 22:58 Abscess Neck Gram Stain Pending Received 12/07/17 22:58 Abscess Neck Wound Culture Pending Received 12/06/17 22:40 Wound Arm Gram Stain - Final Resulted 12/06/17 22:40 Wound Culture - Preliminary S. Aureus Mrsa Gram Negative Reinier Resulted Imaging Last Impressions Chest X-Ray 12/08/17 0000 Signed Impressions: CONCLUSION: Some air overlying the left pleura laterally suspicious for lower lobe pneumoth orax. Bilateral pleural effusions. ET tube in good position. Cervical Spine X-Ray 12/08/17 Signed Impressions: CONCLUSION: Inter vertebral discs are in place Cervical Spine MRI 12/07/17 Signed Impressions: CONCLUSION: 1. Suspected discitis involving the C6-C7 level and possibly the C5-C6 level. 2. Large anterior epidural abscess extending from the tip of the dens down to the T2 level this causes moderate to severe stenosis throughout the mid and low er cervical and upper thoracic spine. 3. Anterior prevertebral abscess seen to the left of midline extending from th e C5 through T1 levels. There is fairly extensive prevertebral soft tissue swel ling. Chest CT 12/06/172158 Signed Impressions: CONCLUSION: 1. There are numerous patchy infiltrates throughout the lungs left greater eliana n right. Some of the infiltrates are borderline cavitary particularly in the le ft upper lobe. Moderate-sized bilateral pleural effusions. The scattered pulmon gus disease is new since February 2017 Renal Ultrasound 12/06/17 Signed Impressions: CONCLUSION: 1. Both kidneys are echogenic suggesting chronic medical renal disease. Small cyst lower pole right kidney Physical Exam GENERAL: Sedated on the vent, NAD SKIN: Cool and dry. Has embolic lesions in BUE and BLE HEAD: Atraumatic. Normocephalic. No temporal wasting, or tenderness. EYES: Virgin conjunctiva. No petechia or hemorrhage. Pupils equal, round and reactive to light. Extraocular movements full and intact. No scleral icterus. No injection or drainage. EARS, NOSE AND THROAT: Nose without bleeding or purulent nasal discharge. No sinus tenderness. Mucous membranes pink and moist. No oral lesions noted. NECK: Trachea midline. Supple and no meningeal signs. No swelling noted in neck CARDIOVASCULAR: Regular rate and rhythm. No murmurs, rubs or gallops heard RESPIRATORY: Clear to auscultation. Decreased breath sounds at bases ABDOMEN: Soft, not distended, no reaction to palpation. Bowel sounds present and normoactive. EXTREMITIES: No clubbing, cyanosis, or edema. No joint effusions. No calf tenderness. Has embolic lesions BLE and BUE. Has multiple wounds in LUE, with some slough and surrounding erythema. RUE - area of abscess with packing, surrounding redness NEUROLOGICAL: Sedated PSYCHIATRIC: Unable to assess LINE: No evidence of infection Assessment & Plan Remarks IMPRESSION Sepsis present on admission MRSA sepsis Cervical epidural abscess RUE abscess Likely with endocarditis - has IVDU, likely septic lung emboli, has embolic lesions in BLE Renal insufficiency, due to infection, ?embolic RECOMMENDATION Follow Repeat BC Await Echo Continue Vanco Continue Cefepime Monitor progress Will need a long course of IV Abx D/W Mony Ho MD Dec 08, 2017 09:49
[2017-12-08] MEDS ORDERED: METHADONE 10 MG/ML VIAL IV PUSH ONE (10:30)
--- NOTE | 2017-12-08 10:46 | HHI.CCPN ---
Subjective Remarks/Hospital Course Hospital Course: 47yM with prior IVDA and prior endocarditis who presented with right forearm abscess and severe sepsis. admitted under obs for additional work-up. complained of persistent and severe neck pain for which MRI c-spine was ordered and demonstrates large cervical epidural abscess and discitis. I was called to evaluate the patient. he is significantly weak in his upper and lower extremities and has severe back pain. I discussed the case with radiology, infectious disease, and neurosurgery. made NPO and plan for emergent cervical decompression and cage fusion. discussed with ID: will change zosyn to cefepime for [employer] penetrance. continue to follow up cultures and changed 2d echo to "urgent" from "routine" to rule out vegetations. patient is altered from severe sepsis and no additional history is obtainable. ROS is very limited, but + for arm/leg weakness, neck pain, back pain. subjective: 12/08: off vasopressors this AM. remains intubated. TTE being performed to eval for endocarditis. s/p cervical interbody cage fusion and diskectomy. Objective Vital Signs Date Time Temp Pulse Resp B/P (MAP) Pulse Ox O2 Delivery O2 Flow Rate FiO2 12/08/17 10:00 65 12/08/17 08:59 99 Ventilator 40 12/08/17 08:00 26 124/70 (88) 12/08/17 04:00 97.9 12/06/17 20:02 3.00 Intake and Output 12/08/17 12/08/17 12/08/17 07:59 15:59 23:59 Intake Total 4278 ml Output Total 1630 ml Balance 2648 ml Result Diagram: 12/08/17 0505 12/08/17 0505 Other Results Laboratory Tests Test 12/08/17 02:51 Blood Gas Puncture Site ART LINE Blood Gas Patient Temperature 98.6 Blood Gas HCO3 22 mmol/L (22-26) Blood Gas Base Excess -4.7 mmol/L (-2-2) Blood Gas Oxygen Saturation 96 % (90-100) Arterial Blood pH 7.23 (7.380-7.420) Arterial Blood Partial Pressure CO2 54 mmHg (38-42) Arterial Blood Partial Pressure O2 184 mmHg (61-120) Arterial Blood Oxygen Content 14.0 Vol % (12.0-20.0) Arterial Blood Carboxyhemoglobin 1.2 % (0-4) Arterial Blood Methemoglobin 1.4 % (0-2) Blood Gas Hemoglobin 10.1 G/DL (12.0-16.0) Oxygen Delivery Device VENTILATOR Blood Gas Ventilator Setting PRVC/ AC Blood Gas Inspired Oxygen 100 % Imaging Last Impressions Cervical Spine MRI 12/07/17 0000 Signed Impressions: CONCLUSION: 1. Suspected discitis involving the C6-C7 level and possibly the C5-C6 level. 2. Large anterior epidural abscess extending from the tip of the dens down to the T2 level this causes moderate to severe stenosis throughout the mid and low er cervical and upper thoracic spine. 3. Anterior prevertebral abscess seen to the left of midline extending from th e C5 through T1 levels. There is fairly extensive prevertebral soft tissue swel ling. Chest CT 12/06/172158 Signed Impressions: CONCLUSION: 1. There are numerous patchy infiltrates throughout the lungs left greater eliana n right. Some of the infiltrates are borderline cavitary particularly in the le ft upper lobe. Moderate-sized bilateral pleural effusions. The scattered pulmon gus disease is new since February 2017 Chest X-Ray 12/06/171958 Signed Impressions: CONCLUSION: Interval development of bilateral effusions and patchy airspace disease since A pril 2017. Renal Ultrasound 12/06/17 0000 Signed Impressions: CONCLUSION: 1. Both kidneys are echogenic suggesting chronic medical renal disease. Small cyst lower pole right kidney Objective Remarks GENERAL: Middle-age male who appears much older than stated age, lying in bed, intubated, sedated HEENT: Normocephalic. Atraumatic. Pupils equal, round, reactive, conjugate. Mucous membranes are moist NECK: Trachea is midline. There is no JVD. neck incision c/d/i with ARELIS drain with minimal sanguinous output. CHEST: Equal chest rise. PRVC. full support. CARDIOVASCULAR: Normal rate, regular rhythm. Sinus by telemetry. ABDOMEN: Soft, nontender, nondistended. No guarding. MUSCULOSKELETAL: Pulses 2+. No peripheral edema. NEUROLOGICAL: RASS -2. moves all extremities, weak, particularly LUE. SKIN: Multiple abrasions and abscesses in various stages of healing, the largest is on the right forearm which is approximately 3 cm x 2 cm and has recently been incised and drained with packing still in the wound. Track mcclain present. A/P Assessment and Plan Assessment: 47-year-old male with history of IV drug abuse and prior endocarditis presents with severe sepsis and large cervical epidural abscess with evidence of new and worsening acute upper and lower extremity myelopathy. Now s/p cervical decompression and cage fusion. remains critically ill. continue antibiotics and wean mechanical ventilation as tolerated. Plan by systems: Neurologic: Cervical epidural abscess and discitis s/p cervical decompression, cage fusion 12/07 IV opiate abuse IV amphetamine abuse Acute metabolic encephalopathy secondary to severe sepsis Acute post-operative pain Frequent neurochecks Neurosurgery: Dr. Chu methadone iv for post-op pain may be a good ketamine candidate for post-op pain start gabapentin 300mg po q8h tizanidine 2mg po q12h for pain oxycodone scheduled for post-op pain continue propofol for goal RASS -2. daily sedation vacation. Respiratory: Acute hypoxic and hypercarbic respiratory failure likely significant component of neuromuscular weakness from cervical epidural abscess prior to surgery: FVC 700mL, NIF -20. Watch closely for diaphragmatic weakness daily SBTs wean fio2 for goal spo2 > 90% vent bundle hob elevated nebs Cardiovascular: Severe sepsis Maintenance IV fluids Renal: Acute kidney injury Secondary to sepsis and bacteremia continue beaver continue mivf daily bmp -- Strict I/Os FEN/GI: Acute intravascular volume depletion- resolving. Acute protein calorie malnutrition: Severe place NGT will need to start tube feeds ICU electrolyte protocol Daily BMP Maintenance IV fluids Heme/ID: Severe sepsis Gram-positive bacteremia: MRSA Cervical epidural abscess/discitis History of endocarditis Follow-up 2D echo Vancomycin with pharmacy dosing cefepime IV Would narrow spectrum and sensitivities come back ID consult: Dr. Szymanski following Endocrine: -- SSI if required for hyperglycemia Prophylaxis: GI Prophylaxis Pepcid DVT Prophylaxis -- SCDs Holding pharmacologic DVT prophylaxis in the setting of neurosurgery Lines: Peripheral IVs. Dispo: remain in ICU. Very critically ill and worsening acute myelopathy. This patient remains critically ill with one or more organ systems which are or may become a threat to life. I have spent in excess of 35 minutes discontinuously in the care and management of this patient. This time is exclusive of procedures, and includes, but is not limited to, evaluation of the patient, review of the medical record, discussions with family, consultants, nursing staff, or respiratory therapy, and documentation in the medical record. Esteban Melissa MD Dec 08, 2017 10:46
--- NOTE | 2017-12-08 11:05 | RADRPT ---
EXAM DATE: 12/08/2017 11:00 AM EDT AGE/SEX: 47 years / Male INDICATIONS: Evaluate for pneumothorax CLINICAL DATA: This is the patient's subsequent encounter. Patient reports that signs and symptoms h ave been present for 3 days and indicates a pain score of Nonresponsive. MEDICAL/SURGICAL HISTORY: Sepsis. MRSAabcess on arm Non-responsive. COMPARISON: [facility] [place], CHEST SINGLE AP, 12/08/2017. . FINDINGS: Today's examination is compared to the prior earlier study. There continues to be a pneumothorax loni g the left lateral hemithorax with approximately 3.3 cm of separation. This appears to be mildly incr eased compared to the earlier examination. No significant midline shift is demonstrated at this time. The support devices remain in place. There continue to be scattered pulmonary infiltrates throughout both lung johnson without significant change. There continues to be a right-sided effusion. The heart size is stable. The bony structures are stable. CONCLUSION: 1. There continues to be a left-sided pneumothorax which has increased in size compared to the [facility] er examination with approximately 3.3 cm of separation on today's examination. 2. No significant change in the scattered bilateral pulmonary infiltrates and right-sided pleural ef fusion. Electronically signed by: Matt Mayfield MD 12/08/2017 11:04 AM EDT
--- NOTE | 2017-12-08 11:20 | HHI.NSPN ---
(Aftab Newman) History Chief Complaint: Unable to obtain due to patient's clinical condition. (Aftab Newman) Interval History 12/07: 47-year-old male with a history of IV drug abuse. Multiple admissions since March 2017 for several areas of cutaneous, soft tissue abscess formation , sepsis. Recent admission September 2017 for antecubital abscesses. Presents to the emergency department 12/06/2017 with generalized fatigue, abdominal pain, productive cough. Now complains of neck pain. Positive progressive numbness, dysesthesia upper extremities with quadriparesis noted today. He went emergently to the operating room for a C5-6 and C6-7 ACDF and evacuation of a cervical epidural and intradural abscess. Post-operatively the patient was admitted to the ISC unit for further care and monitoring. 12/08: The patient is intubated and mechanically ventilated when seen this morning. He had propofol infusing for sedation. Nursing reports that she was not able to obtain a temperature on the patient this morning and she increased the ambient temperature. An hour later his temp was 94.1. She placed warm blankets on him and an external warming blanket. His temp when seen was 97.5. Upon evaluation he had movement of the right foot to noxious stimulation. There was questionable movement of the left toes. He had no response with the upper extremities. He is noted to have a purplish rash to the distal lower extremities. Also the left pupil was slightly larger than the right and both were non-reactive. Breath sounds were decreased on the left. (Aftab Newman) Exam Results 12/06/17 12/06/17 12/07/17 12/07/17 12/08/17 12/08/17 06:00 18:00 06:00 18:00 06:00 18:00 Intake Total 1800 ml 2320 ml 3500 ml 778 ml Output Total 500 ml 450 ml 1180 ml Balance 1800 ml 1820 ml 3050 ml -402 ml Intake Oral 220 ml IV Total 1800 ml 2100 ml 1000 ml 778 ml Other 2500 ml Output Urine Total 500 ml 300 ml 1150 ml Drainage Total 30 ml Estimated Blood Loss 150 ml Vital Signs Date Time Temp Pulse Resp B/P (MAP) Pulse Ox O2 Delivery O2 Flow Rate FiO2 12/08/17 10:00 65 12/08/17 08:59 99 Ventilator 40 12/08/17 08:18 100 60 12/08/17 08:00 64 26 124/70 (88) 98 12/08/17 08:00 80 12/08/17 08:00 64 12/08/17 06:00 61 12/08/17 04:05 100 80 12/08/17 04:00 65 12/08/17 04:00 100 12/08/17 04:00 97.9 67 22 126/64 (84) 100 12/08/17 03:33 100 12/08/17 03:00 100 12/08/17 02:00 67 12/08/17 01:45 78 90/40 12/08/17 01:09 100 100 12/07/17 20:34 98 12/07/17 20:00 101 12/07/17 20:00 Room Air 12/07/17 20:00 99.0 102 24 187/100 (129) 94 12/07/17 18:45 87 21 176/110 (132) 99 12/07/17 15:29 85 18 149/93 (111) 97 12/07/17 12:45 86 20 148/84 (105) 95 12/07/17 08:30 88 20 151/84 (106) 93 12/06/17 22:00 80 16 166/96 (119) 96 Room Air 12/06/17 21:00 86 16 144/85 (104) 96 Nasal Cannula 12/06/17 20:02 97.9 85 16 153/96 (115) 94 Nasal Cannula 3.00 12/06/17 20:00 88 Room Air 12/06/17 19:51 16 12/06/17 19:42 105 16 140/95 (110) 95 (Aftab Newman) Physical Examination GENERAL: Comatose, intubated & mechanically ventilated, sedated w/propofol infusing at 30 mcg/kg/min. Warming blankets on patient for hypothermia. SKIN: Intact dressing to anterior neck surgical incision. Purpura to both distal lower extremities. HEENT: Normocephalic, atraumatic. Right pupil 2 mm & left 3 mm, both non- reactive. Orally intubated. OGT. NECK: [place] J cervical collar in place. Intact dressing to anterior surgical incision, ARELIS drain w/serosanguinous drainage. No JVD. Trachea midline. RESPIRATORY: Decreased on left, coarse on right, equal excursion, non-laboured, intubated & on PRVC A/C settings. CARDIOVASCULAR: S1S2 w/RRR w/o M/G/R. Monitor sinus rhythm w/o any ectopy noted. GASTROINTESTINAL: Abdomen soft, no bowel sounds appreciated, OGT to LIWS w/ brownish drainage. MUSCULOSKELETAL: No evident clubbing or deformities. Moved right foot slight to noxious stimulation, questionable movement of left toes, no UE response. NEUROLOGICAL: Comatose, sedated w/propofol. No eye opening to any stimulation. Right pupil 2 mm & left3 mm, both non- reactive. Nonverbal, intubated. Did not follow any commands. Slight movement of right foot to local noxious stimulation, questionable movement of left toes, no response w/either UE. (Aftab Newman) Lab, Micro, Other Results Recent Impressions Chest X-Ray 12/08/17 0000 Signed Impressions: CONCLUSION: Some air overlying the left pleura laterally suspicious for lower lobe pneumoth orax. Bilateral pleural effusions. ET tube in good position. Cervical Spine X-Ray 12/08/17 0000 Signed Impressions: CONCLUSION: Inter vertebral discs are in place Cervical Spine MRI 12/07/17 0000 Signed Impressions: CONCLUSION: 1. Suspected discitis involving the C6-C7 level and possibly the C5-C6 level. 2. Large anterior epidural abscess extending from the tip of the dens down to the T2 level this causes moderate to severe stenosis throughout the mid and low er cervical and upper thoracic spine. 3. Anterior prevertebral abscess seen to the left of midline extending from th e C5 through T1 levels. There is fairly extensive prevertebral soft tissue swel ling. Chest CT 12/06/179 Signed Impressions: CONCLUSION: 1. There are numerous patchy infiltrates throughout the lungs left greater eliana n right. Some of the infiltrates are borderline cavitary particularly in the le ft upper lobe. Moderate-sized bilateral pleural effusions. The scattered pulmon gus disease is new since February 2017 Chest X-Ray 12/06/171958 Signed Impressions: CONCLUSION: Interval development of bilateral effusions and patchy airspace disease since A pril 2017. Renal Ultrasound 12/06/17 0000 Signed Impressions: CONCLUSION: 1. Both kidneys are echogenic suggesting chronic medical renal disease. Small cyst lower pole right kidney Laboratory Tests Test 12/06/17 20:00 12/06/17 20:10 12/06/17 22:50 12/07/17 01:15 White Blood Count 17.8 TH/MM3 Red Blood Count 5.08 MIL/MM3 Hemoglobin 13.6 GM/DL Hematocrit 40.5 % Mean Corpuscular Volume 79.8 FL Mean Corpuscular Hemoglobin 26.8 PG Mean Corpuscular Hemoglobin Concent 33.6 % Red Cell Distribution Width 16.4 % Platelet Count 121 TH/MM3 Mean Platelet Volume 9.5 FL Neutrophils (%) (Auto) 92.8 % Lymphocytes (%) (Auto) 3.9 % Monocytes (%) (Auto) 2.1 % Eosinophils (%) (Auto) 1.0 % Basophils (%) (Auto) 0.2 % Neutrophils # (Auto) 16.5 TH/MM3 Lymphocytes # (Auto) 0.7 TH/MM3 Monocytes # (Auto) 0.4 TH/MM3 Eosinophils # (Auto) 0.2 TH/MM3 Basophils # (Auto) 0.0 TH/MM3 CBC Comment DIFF FINAL Differential Comment Prothrombin Time 12.1 SEC Prothromb Time International Ratio 1.2 RATIO Activated Partial Thromboplast Time 27.4 SEC Blood Urea Nitrogen 75 MG/DL Creatinine 2.94 MG/DL Random Glucose 91 MG/DL Total Protein 7.9 GM/DL Albumin 2.2 GM/DL Calcium Level 8.4 MG/DL Magnesium Level 3.0 MG/DL Alkaline Phosphatase 191 U/L Aspartate Amino Transf (AST/SGOT) 46 U/L Alanine Aminotransferase (ALT/SGPT) 29 U/L Total Bilirubin 1.9 MG/DL Sodium Level 129 MEQ/L Potassium Level 3.0 MEQ/L Chloride Level 90 MEQ/L Carbon Dioxide Level 25.0 MEQ/L Anion Gap 14 MEQ/L Estimat Glomerular Filtration Rate 23 ML/MIN Lactic Acid Level 2.7 mmol/L 1.3 mmol/L Total Creatine Kinase 155 U/L Creatine Kinase MB 8.6 NG/ML Troponin I 0.03 NG/ML C-Reactive Protein 18.00 MG/DL Lipase 47 U/L Ethyl Alcohol Level LESS THAN 3 MG/DL Erythrocyte Sedimentation Rate 43 mm/hr B-Type Natriuretic Peptide 155 PG/ML Urine Color YELLOW Urine Turbidity CLOUDY Urine pH 5.0 Urine Specific [place] 1.012 Urine Protein NEG mg/dL Urine Glucose (UA) 50 mg/dL Urine Ketones NEG mg/dL Urine Occult Blood SMALL Urine Nitrite NEG Urine Bilirubin NEG Urine Urobilinogen 4.0 OR GREATER mg/dL Urine Leukocyte Esterase NEG Urine RBC 4 /hpf Urine WBC 9 /hpf Urine Squamous Epithelial Cells <1 /hpf Urine Amorphous Sediment RARE Urine Bacteria RARE /hpf Urine Hyaline Casts 12 /lpf Urine Mucus FEW /lpf Microscopic Urinalysis Comment CULTURE INDICATED Urine Opiates Screen POS Urine Barbiturates Screen NEG Urine Amphetamines Screen POS Urine Benzodiazepines Screen NEG Urine Cocaine Screen NEG Urine Cannabinoids Screen NEG Test 12/07/17 11:30 12/07/17 17:55 12/08/17 02:41 12/08/17 02:51 White Blood Count 14.5 TH/MM3 Red Blood Count 4.14 MIL/MM3 Hemoglobin 10.9 GM/DL Hematocrit 33.2 % Mean Corpuscular Volume 80.2 FL Mean Corpuscular Hemoglobin 26.3 PG Mean Corpuscular Hemoglobin Concent 32.8 % Red Cell Distribution Width 16.6 % Platelet Count 95 TH/MM3 Mean Platelet Volume 9.1 FL Neutrophils (%) (Auto) 91.8 % Lymphocytes (%) (Auto) 3.3 % Monocytes (%) (Auto) 3.7 % Eosinophils (%) (Auto) 1.0 % Basophils (%) (Auto) 0.2 % Neutrophils # (Auto) 13.3 TH/MM3 Lymphocytes # (Auto) 0.5 TH/MM3 Monocytes # (Auto) 0.5 TH/MM3 Eosinophils # (Auto) 0.1 TH/MM3 Basophils # (Auto) 0.0 TH/MM3 CBC Comment AUTO DIFF Differential Total Cells Counted 100 Neutrophils % (Manual) 67 % Band Neutrophils % 23 % Lymphocytes % 5 % Monocytes % 1 % Neutrophils # (Manual) 13.6 TH/MM3 Metamyelocytes 2 % Myelocytes 2 % Differential Comment FINAL DIFF MANUAL Toxic Vacuolation PRESENT Platelet Estimate LOW Platelet Morphology Comment NORMAL Ovalocytes Ozzy Cells 1+ Keratocytes OCC Blood Urea Nitrogen 68 MG/DL Creatinine 2.39 MG/DL Random Glucose 116 MG/DL Calcium Level 7.8 MG/DL Sodium Level 133 MEQ/L Potassium Level 3.0 MEQ/L Chloride Level 98 MEQ/L Carbon Dioxide Level 22.2 MEQ/L Anion Gap 13 MEQ/L Estimat Glomerular Filtration Rate 29 ML/MIN Prothrombin Time 12.2 SEC Prothromb Time International Ratio 1.2 RATIO Activated Partial Thromboplast Time 29.9 SEC Nasal Screen MRSA (PCR) MRSA DETECTED Blood Gas Puncture Site ART LINE Blood Gas Patient Temperature 98.6 Blood Gas HCO3 22 mmol/L Blood Gas Base Excess -4.7 mmol/L Blood Gas Oxygen Saturation 96 % Arterial Blood pH 7.23 Arterial Blood Partial Pressure CO2 54 mmHg Arterial Blood Partial Pressure O2 184 mmHg Arterial Blood Oxygen Content 14.0 Vol % Arterial Blood Carboxyhemoglobin 1.2 % Arterial Blood Methemoglobin 1.4 % Blood Gas Hemoglobin 10.1 G/DL Oxygen Delivery Device VENTILATOR Blood Gas Ventilator Setting PRVC/ AC Blood Gas Inspired Oxygen 100 % Test 12/08/17 05:05 12/08/17 05:25 White Blood Count 21.6 TH/MM3 Red Blood Count 3.79 MIL/MM3 Hemoglobin 9.9 GM/DL Hematocrit 30.9 % Mean Corpuscular Volume 81.7 FL Mean Corpuscular Hemoglobin 26.1 PG Mean Corpuscular Hemoglobin Concent 31.9 % Red Cell Distribution Width 16.6 % Platelet Count 102 TH/MM3 Mean Platelet Volume 9.9 FL Blood Urea Nitrogen 66 MG/DL Creatinine 2.22 MG/DL Random Glucose 124 MG/DL Total Protein 6.0 GM/DL Albumin 1.4 GM/DL Calcium Level 7.7 MG/DL Alkaline Phosphatase 172 U/L Aspartate Amino Transf (AST/SGOT) 28 U/L Alanine Aminotransferase (ALT/SGPT) 16 U/L Total Bilirubin 1.2 MG/DL Sodium Level 140 MEQ/L Potassium Level 3.6 MEQ/L Chloride Level 104 MEQ/L Carbon Dioxide Level 22.5 MEQ/L Anion Gap 14 MEQ/L Estimat Glomerular Filtration Rate 32 ML/MIN Prothrombin Time 12.7 SEC Prothromb Time International Ratio 1.3 RATIO Activated Partial Thromboplast Time 31.4 SEC (Aftab Newman) Medical Decision Making Impression and Plan Impression: 1. Extensive cervical and upper thoracic anterior epidural abscess with significant canal and cord compromise. 2. C5-6 and C6-7 discitis. Significant destruction of the C6 vertebral body with osteomyelitis 3. History of IV drug abuse 4. History of bacterial endocarditis Postoperative Diagnosis: 1. Cervical epidural abscess 2. Cervical intradural abscess Patient is critical. Remains intubated & mechanically ventilated. Slight movement of right foot to noxious stimulation & questionable left toe movement. No response w/upper extremities. Pupils unequal & non-reactive. Past 24 hrs: Hypothermic, known minimum temp 94.1 after warming. Intermittent tachycardia. Intermittently elevated SBP. Hypotensive once early this morning. INR 1.3 and aPTT 31.4. Sodium 140. Resolution of hypokalemia. Slight improvement in renal function. ARELIS drain with 30 mL output since surgery as of shift change this morning. Improvement in AST & alk phos from . Reviewed labs for today. Increase in leukocytosis. Anaemia, drop in haemoglobin. Increase in platelet count. POD #0 () s/p: 1. C5-6 and C6-7 anterior cervical discectomy, evacuation of cervical epidural and intradural abscess. 2. C5-6 and C6-7 anterior interbody fusion, allograft bone 3. C5-7 anterior cervical instrumentation Plan: Primary & critical care management per Log Roper. Neuro checks. Wean sedation & ventilation as appropriate. [place] J cervical collar at all times. Monitor ARELIS drain output. Mobilise patient w/assistance when appropriate. Physical & Occupational Therapy eval & tx. (Aftab Newman) Attending Statement The exam, history, and the medical decision-making described in the above note were completed with the assistance of the mid-level provider. I reviewed and agree with the findings presented. I attest that I had a [id number] encounter with the patient on the same day, and personally performed and documented my assessment and findings in the medical record. On exam 12/08/2017, patient remains intubated, sedated Full neurologic exam not possible. Dressing dry and intact Mild drain output. Discontinue drain Wean sedation as tolerated (Ryan Chu MD) Aftab Newman Dec 08, 2017 11:20 Ryan Chu MD Dec 09, 2017 20:40
[2017-12-08] MEDS: oxyCODONE HCL ORAL CONC 5 MG/0.25 ML SYRINGE PO SCH ×3 (13:10→21:31)
[2017-12-08] MEDS: GABAPENTIN 250 MG/5 ML UDC NG SCH ×2 (13:11→18:15)
--- NOTE | 2017-12-08 15:54 | RADRPT ---
EXAM DATE: 12/08/2017 3:43 PM EDT AGE/SEX: 47 years / Male INDICATIONS: Evaluate left pneumothorax and chest tube postion CLINICAL DATA: This is the patient's subsequent encounter. Patient reports that signs and symptoms h ave been present for 1 week and indicates a pain score of Nonresponsive. MEDICAL/SURGICAL HISTORY: Sepsis. arm abcess, pneumothorax . chest tube COMPARISON: [facility], CHEST SINGLE AP, 12/08/2017. . FINDINGS: A left chest tube has been placed. The chest tube appears to be in good position. The previously note d left pneumothorax has resolved. There continues to be scattered bilateral pulmonary infiltrates. No significant change in the right-sided pleural effusion. The rest of the support devices remain in pl lindy. CONCLUSION: New small left-sided chest tube in place. No pneumothorax. Electronically signed by: Matt Mayfield MD 12/08/2017 3:53 PM EDT
--- NOTE | 2017-12-08 18:34 | PD.PROCEDR ---
Procedure Note Procedure Percutaneous Pigtail Tube Thoracostomy Procedure Note Left-sided 10 Vietnamese pigtail chest tube Diagnosis: Pneumothorax Indications: Left-sided pneumothorax Consent: Emergent Anesthesia: Propofol IV Description of the Procedure: The patient was placed in the supine position. The arm was abducted above the head and secured. The left lateral chest was prepped and draped sterilely to include the axilla and nipple. The 5th intercostal space was identified. A small incision was made using a #11 blade. At the mid-axillary line, a 10 Fr pigtail catheter with stylet and pencil point trochar introducer were inserted superior to the adjacent rib and the pigtail catheter was advanced over the trochar in a modified Seldinger Technique, easily and without resistance. There is a noted rash of air. The catheter was connected to a Pleur-o-vac and connected to [id number] suction. There is a small air leak present. The catheter was sutured to the skin using a 3-0 silk sandal suture and an occlusive dressing was applied. There were no immediate complications noted. There was minimal EBL. The patient tolerated the procedure well. A Chest x-ray has been ordered. I personally performed the procedure. Esteban Melissa MD Dec 08, 2017 18:34
--- NOTE | 2017-12-08 19:37 | ECHRPT ---
Indication: vegetations CONCLUSIONS Normal left ventricular size. Mild LVH. The left ventricular systolic function is normal with an estimated ejection fraction in the range of 60-65%. No vegetations noted. Mild tricuspid regurgitation. BP: / HR: Rhythm: MEASUREMENTS (Male / Female) Normal Values Technical Quality: 2D ECHO LV Diastolic Diameter PLAX 4.7 cm 4.2 - 5.9 / 3.9 - 5.3 cm LV Systolic Diameter PLAX 3.5 cm IVS Diastolic Thickness 1.2 cm 0.6 - 1.0 / 0.6 - 0.9 cm LVPW Diastolic Thickness 1.0 cm 0.6 - 1.0 / 0.6 - 0.9 cm LV Relative Wall Thickness 0.5 DOPPLER TR Peak Velocity 270.0 cm/s TR Peak Gradient 29.2 mmHg Right Atrial Pressure 10.0 mmHg Pulmonary Artery Systolic Pressu 39.2 mmHg Right Ventricular Systolic Press 39.2 mmHg FINDINGS LEFT VENTRICLE Normal left ventricular size. Mild LVH. The left ventricular systolic function is normal with an estimated ejection fraction in the range of 60-65%. MITRAL VALVE No vegetation noted AORTIC VALVE No vegetation noted TRICUSPID VALVE No vegetation noted Mild tricuspid regurgitation PULMONARY VALVE No vegetation noted PERICARDIUM No pericardial effusion. Chuck Raya MD, FACC (Electronically Signed) Final Date:08 December 2017 19:35
[2017-12-08] MEDS: REMOVE OLD LIDOCAINE PATCH T-DERMAL SCH (21:00)
[2017-12-08] MEDS: VANCOMYCIN INJ 1,250 MG in SODIUM CHLOR 0.9% 250 ML INJ 250 ML IV SCH (21:32)
[2017-12-09] VITALS (18 sets, daily range): BP systolic 128–144; BP diastolic 61–84; PULSE 61–91; RESP 10–31; TEMP 97.2–98.4; O2SAT 94–100
[2017-12-09] MEDS: SODIUM CHLOR 0.9% 1000 ML INJ 1,000 ML IV SCH ×4 (01:21→22:22)
[2017-12-09] MEDS: oxyCODONE HCL ORAL CONC 5 MG/0.25 ML SYRINGE PO SCH ×6 (01:22→20:47)
[2017-12-09] MEDS: PROPOFOL 1000 MG/100 ML IV PRN ×2 (01:55→05:41)
[2017-12-09 04:27] LABS: HEMATOCRIT 24.7 % (39.0-51.0); HEMOGLOBIN 8.1 GM/DL (13.0-17.0); MEAN CELL VOLUME 80.3 FL (80.0-100.0); MEAN CORPUSCULAR HEMOGLOBIN 26.2 PG (27.0-34.0); MEAN CORPUSCULAR HGB CONC 32.7 % (32.0-36.0); MEAN PLATELET VOLUME 8.6 FL (7.0-11.0); PLATELET COUNT 105 TH/MM3 (150-450); RED BLOOD COUNT 3.07 MIL/MM3 (4.50-5.90); WHITE BLOOD COUNT 18.3 TH/MM3 (4.0-11.0)
[2017-12-09 04:38] LABS: INTERNATIONAL NORMALIZED RATIO 1.1 RATIO; PROTHROMBIN TIME - PATIENT 11.4 SEC (9.8-11.6)
[2017-12-09 04:50] LABS: ALBUMIN 1.3 GM/DL (3.4-5.0)
[2017-12-09 04:51] LABS: ALKALINE PHOSPHATASE 141 U/L (45-117); ALT (GPT) 14 U/L (12-78); AST (GOT) 17 U/L (15-37); BLOOD UREA NITROGEN 80 MG/DL (7-18); CALCIUM 8.3 MG/DL (8.5-10.1); CHLORIDE 111 MEQ/L (98-107); CREATININE 2.75 MG/DL (0.60-1.30); GLOMERULAR FILTRATION RATE 25 ML/MIN (>89); GLUCOSE,RANDOM 121 MG/DL (74-106); SODIUM (NA) 144 MEQ/L (136-145); TOTAL BILIRUBIN ADULT 0.7 MG/DL (0.2-1.0); TOTAL PROTEIN 6.1 GM/DL (6.4-8.2)
--- NOTE | 2017-12-09 05:13 | RADRPT ---
EXAM DATE: 12/09/2017 4:48 AM EDT AGE/SEX: 47 years / Male INDICATIONS: Follow up pneumothorax. CLINICAL DATA: This is the patient's subsequent encounter. Patient reports that signs and symptoms h ave been present for 4 - 6 days and indicates a pain score of Nonresponsive. MEDICAL/SURGICAL HISTORY: None. None. COMPARISON: [facility] [place], CHEST SINGLE AP, 12/08/2017. . FINDINGS: The endotracheal tube, nasogastric tube and left subclavian central line are all in good position. Sm all pigtail catheter overlies left chest. There are bilateral pleural effusions right greater than le ft. There is no residual air on the right. Trace amount residual pleural air left lateral chest. CONCLUSION: Tubing catheters in good position. Moderate size right pleural effusion remains. No substantial pneum othorax seen Electronically signed by: Andres Powell MD 12/09/2017 5:12 AM EDT
[2017-12-09] MEDS: REMOVE OLD LIDOCAINE PATCH T-DERMAL SCH ×2 (09:00→21:00)
[2017-12-09] MEDS: GABAPENTIN 250 MG/5 ML UDC NG SCH ×3 (09:21→17:53)
[2017-12-09] MEDS: ENOXAPARIN SODIUM 30 MG/0.3 ML SYRINGE SQ SCH (09:22)
[2017-12-09] MEDS: LIDOCAINE HCL 5% PATCH T-DERMAL SCH ×2 (09:23→09:32)
[2017-12-09] MEDS: SODIUM CHLORIDE 0.9% FLUSH 10 ML FLUSH IV FLUSH SCH ×2 (09:23→20:47)
[2017-12-09] MEDS: DOCUSATE SODIUM 50 MG/SENNA 8.6 MG TAB PO SCH ×2 (09:23→20:38)
--- NOTE | 2017-12-09 11:18 | HHI.IDPN ---
Subjective Subjective Remarks Patient is a 47-year-old male, with known history of active IV drug use, presented to the hospital complaining of an infection in his right forearm were he had injected about 3 days ago. He also has had some subjective complaints of fever and chills. Patient apparently also has been having problem with pain in the neck area that goes to his shoulder worse on the left side than on the right side, as well as left-sided chest pain. He denies any sore throat or any respiratory complaint as far as cough or congestion. Has not had any nausea or vomiting. He is also has some lower rib cage pain. Denies any urinary complaints. On presentation he was found to have an abscess in his right forearm, and had an I&D done. CT of the chest is showing some infiltrates as well as some cavitary lesions and some round lesions. Chest x-ray showing some bilateral infiltrates. His creatinine was also elevated, and renal ultrasound did not show any obstruction, and possibly has some findings of medical renal disease. 2 blood cultures done on admission are now reported as growing gram- positive cocci in pairs and clusters. Patient's drug screen is positive for amphetamines and opiates. 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 He has had multiple infections in his upper extremity related to injections from his IV drug use. The last admission for infection in his arm was September 2017. He had an echo done at that time which did not show any vegetation in the mitral valve. Infectious disease consultation has been requested to evaluate the patient. Notes reviewed D/W RN Off sedation Does follow some commands Moving right side better than the left On the vent All blood cultures with MRSA Intra-Op culture pending, Gram stain with gram-positive cocci in clusters Afebrile BP okay MRI with large cervical epidural abscess Had surgery last night: 1. C5-6 and C6-7 anterior cervical discectomy, evacuation of cervical epidural and intradural abscess. 2. C5-6 and C6-7 anterior interbody fusion, allograft bone 3. C5-7 anterior cervical instrumentation Arm C/S MRSA and GNR WBC down to 18 K Antibiotics Vancomycin Cefepime Current Medications Medications (Trade) Dose Ordered Sig/Brennon Route Start Time Stop Time Status Last Admin Pharmacy Profile Note 0 ml @ 0 mls/hr UNSCH OTHER 12/06/17 22:30 Sodium Chloride 1,000 ml @ 125 mls/hr Q8H IV 12/06/17 22:22 12/09/17 05:42 (NS Flush) 2 ml UNSCH PRN IV FLUSH 12/06/17 22:30 (NS Flush) 2 ml BID IV FLUSH 12/07/17 09:00 12/09/17 09:23 (Tylenol) 650 mg Q4H PRN PO 12/06/17 22:30 12/07/17 07:51 (Zofran Odt) 4 mg Q6H PRN PO 12/06/17 22:30 (Narcan Inj) 0.4 mg UNSCH PRN IV PUSH 12/06/17 22:30 (Pearl-Colace) 1 tab BID PO 12/07/17 09:00 12/09/17 09:23 (Milk Of Magnesia Liq) 30 ml Q12H PRN PO 12/06/17 22:30 (Senokot) 17.2 mg Q12H PRN PO 12/06/17 22:30 (Dulcolax Supp) 10 mg DAILY PRN RECTAL 12/06/17 22:30 (Lactulose Liq) 30 ml DAILY PRN PO 12/06/17 22:30 ([facility] Ordered Lab Info) SPECIFIC LAB TO BE DRAWN: VANCO TROUGH DATE TO BE DRForeign.. ONCE ONCE .XX 12/09/17 20:45 12/09/17 20:46 (Lidoderm 5% Patch.12 Hr) 1 patch DAILY T-DERMAL 12/07/17 10:15 12/09/17 09:32 (Lovenox Inj) 30 mg DAILY SQ 12/07/17 11:00 12/09/17 09:22 Miscellaneous Information 1 Q12HR T-DERMAL 12/07/17 21:00 12/09/17 09:00 Vancomycin HCl 1250 mg/Sodium Chloride 262.5 ml @ 250 mls/hr Q24H IV 12/07/17 21:00 12/08/17 21:32 Cefepime HCl 2000 mg/Sodium Chloride 100 ml @ 200 mls/hr Q12H IV 12/07/17 18:00 12/08/17 21:33 (Dilaudid Pf Inj) 1 mg Q4H PRN IV 12/07/17 20:30 12/07/17 20:31 Phenylephrine HCl 40 mg/Dextrose 500 ml @ 30 mls/hr TITRATE PRN IV 12/08/17 02:30 12/08/17 01:45 (Brethine Inj) 1 mg UNSCH PRN SQ 12/08/17 02:30 Propofol 100 ml @ 24 mls/hr TITRATE PRN IV 12/08/17 02:45 12/09/17 05:41 (Neurontin Liq) 300 mg TID NG 12/08/17 13:00 12/09/17 09:21 (Zanaflex) 4 mg Q12HR PO 12/08/17 10:30 12/09/17 09:31 (Roxicodone Intensol Liq) 20 mg Q4HR PO 12/08/17 12:00 12/09/17 09:22 Lines Line with no evidence of infection Past Medical History Hypertension: Untreated. IV drug abuser Skin abscesses related to IVDU S/P Rx MV IE Past Surgical History Bilateral wrist abscess incision and drainage/washout Allergies: Coded Allergies: No Known Allergies (Unverified , 12/06/17) Objective . Vital Signs Date Time Temp Pulse Resp B/P (MAP) Pulse Ox O2 Delivery O2 Flow Rate FiO2 12/09/17 09:46 40 12/09/17 09:46 100 40 12/09/17 06:00 65 12/09/17 04:37 100 40 12/09/17 04:00 40 12/09/17 04:00 68 12/09/17 04:00 97.4 67 22 132/61 (84) 100 12/09/17 02:00 61 12/09/17 00:58 100 40 12/09/17 00:00 97.2 62 22 134/69 (90) 100 12/09/17 00:00 40 12/09/17 00:00 63 12/08/17 22:31 22 12/08/17 22:00 64 12/08/17 21:54 100 40 12/08/17 20:00 97.7 70 22 132/65 (87) 100 12/08/17 20:00 68 12/08/17 20:00 40 12/08/17 19:00 100 Mechanical Ventilator 40 12/08/17 18:00 68 12/08/17 18:00 69 12/08/17 17:00 97.5 69 22 130/63 (85) 100 12/08/17 16:00 40 12/08/17 16:00 67 12/08/17 15:39 100 40 12/08/17 15:38 40 12/08/17 14:49 98.3 74 20 121/61 (81) 100 12/08/17 14:00 75 12/08/17 12:00 97.5 83 22 134/75 (94) 96 12/08/17 12:00 89 12/08/17 12:00 40 12/08/17 11:37 98 40 12/08/17 11:37 40 . Laboratory Tests Test 12/07/17 11:30 12/08/17 05:05 12/09/17 04:20 White Blood Count 14.5 TH/MM3 21.6 TH/MM3 18.3 TH/MM3 Red Blood Count 4.14 MIL/MM3 3.79 MIL/MM3 3.07 MIL/MM3 Hemoglobin 10.9 GM/DL 9.9 GM/DL 8.1 GM/DL Hematocrit 33.2 % 30.9 % 24.7 % Mean Corpuscular Volume 80.2 FL 81.7 FL 80.3 FL Mean Corpuscular Hemoglobin 26.3 PG 26.1 PG 26.2 PG Mean Corpuscular Hemoglobin Concent 32.8 % 31.9 % 32.7 % Red Cell Distribution Width 16.6 % 16.6 % 17.0 % Platelet Count 95 TH/MM3 102 TH/MM3 105 TH/MM3 Mean Platelet Volume 9.1 FL 9.9 FL 8.6 FL Neutrophils (%) (Auto) 91.8 % Lymphocytes (%) (Auto) 3.3 % Monocytes (%) (Auto) 3.7 % Eosinophils (%) (Auto) 1.0 % Basophils (%) (Auto) 0.2 % Neutrophils # (Auto) 13.3 TH/MM3 Lymphocytes # (Auto) 0.5 TH/MM3 Monocytes # (Auto) 0.5 TH/MM3 Eosinophils # (Auto) 0.1 TH/MM3 Basophils # (Auto) 0.0 TH/MM3 CBC Comment AUTO DIFF Differential Total Cells Counted 100 Neutrophils % (Manual) 67 % Band Neutrophils % 23 % Lymphocytes % 5 % Monocytes % 1 % Neutrophils # (Manual) 13.6 TH/MM3 Metamyelocytes 2 % Myelocytes 2 % Differential Comment FINAL DIFF MANUAL Toxic Vacuolation PRESENT Platelet Estimate LOW Platelet Morphology Comment NORMAL Ovalocytes [place] Cells 1+ Keratocytes OCC Laboratory Tests Test 12/07/17 11:30 12/08/17 05:05 12/09/17 04:20 Blood Urea Nitrogen 68 MG/DL 66 MG/DL 80 MG/DL Creatinine 2.39 MG/DL 2.22 MG/DL 2.75 MG/DL Random Glucose 116 MG/DL 124 MG/DL 121 MG/DL Calcium Level 7.8 MG/DL 7.7 MG/DL 8.3 MG/DL Sodium Level 133 MEQ/L 140 MEQ/L 144 MEQ/L Potassium Level 3.0 MEQ/L 3.6 MEQ/L 3.7 MEQ/L Chloride Level 98 MEQ/L 104 MEQ/L 111 MEQ/L Carbon Dioxide Level 22.2 MEQ/L 22.5 MEQ/L 19.0 MEQ/L Anion Gap 13 MEQ/L 14 MEQ/L 14 MEQ/L Estimat Glomerular Filtration Rate 29 ML/MIN 32 ML/MIN 25 ML/MIN Total Protein 6.0 GM/DL 6.1 GM/DL Albumin 1.4 GM/DL 1.3 GM/DL Alkaline Phosphatase 172 U/L 141 U/L Aspartate Amino Transf (AST/SGOT) 28 U/L 17 U/L Alanine Aminotransferase (ALT/SGPT) 16 U/L 14 U/L Total Bilirubin 1.2 MG/DL 0.7 MG/DL Microbiology Date/Time Source Procedure Growth Status 12/08/17 12:27 Blood Peripheral Aerobic Blood Culture - Preliminary Gram Positive Cocci Resulted 12/08/17 12:27 Blood Peripheral Anaerobic Blood Culture - Preliminary NO GROWTH IN 1 DAY Resulted 12/08/17 12:20 Blood Peripheral Aerobic Blood Culture - Preliminary Gram Positive Cocci Resulted 12/08/17 12:20 Blood Peripheral Anaerobic Blood Culture - Preliminary NO GROWTH IN 1 DAY Resulted 12/07/17 13:35 Blood Peripheral Aerobic Blood Culture - Preliminary Gram Positive Cocci Resulted 12/07/17 13:35 Blood Peripheral Anaerobic Blood Culture - Preliminary NO GROWTH IN 2 DAYS Resulted 12/07/17 13:30 Blood Peripheral Aerobic Blood Culture - Preliminary Gram Positive Cocci Resulted 12/07/17 13:30 Blood Peripheral Anaerobic Blood Culture - Preliminary NO GROWTH IN 2 DAYS Resulted 12/06/17 20:00 Blood Peripheral Aerobic Blood Culture - Final S. Aureus Mrsa Complete 12/06/17 20:00 Anaerobic Blood Culture - Final S. Aureus Mrsa Complete 12/06/17 19:55 Blood Peripheral Aerobic Blood Culture - Final S. Aureus Mrsa Complete 12/06/17 19:55 Anaerobic Blood Culture - Final S. Aureus Mrsa Complete 12/07/17 01:15 Urine Random Urine Urine Culture - Final <10,000 CFU/ML MIXED GRAM POSITIVE FL... Complete 12/07/17 22:58 Abscess Neck Fungal Smear - Final NO FUNGAL ELEMENTS SEEN. Resulted 12/07/17 22:58 Abscess Neck Fungal Culture Pending Resulted 12/07/17 22:58 Abscess Neck Acid Fast Stain - Final NO ACID FAST BACILLI SEEN Resulted 12/07/17 22:58 Abscess Neck Mycobacterial Culture Pending Resulted 12/07/17 22:58 Abscess Neck Gram Stain - Final Resulted 12/07/17 22:58 Abscess Neck Wound Culture Pending Resulted 12/06/17 22:40 Wound Arm Gram Stain - Final Resulted 12/06/17 22:40 Wound Culture - Preliminary S. Aureus Mrsa Gram Negative Reinier Resulted Imaging Last Impressions Chest X-Ray 12/08/17 0000 Signed Impressions: CONCLUSION: Some air overlying the left pleura laterally suspicious for lower lobe pneumoth orax. Bilateral pleural effusions. ET tube in good position. Cervical Spine X-Ray 12/08/17 0000 Signed Impressions: CONCLUSION: Inter vertebral discs are in place Cervical Spine MRI 12/07/17 0000 Signed Impressions: CONCLUSION: 1. Suspected discitis involving the C6-C7 level and possibly the C5-C6 level. 2. Large anterior epidural abscess extending from the tip of the dens down to the T2 level this causes moderate to severe stenosis throughout the mid and low er cervical and upper thoracic spine. 3. Anterior prevertebral abscess seen to the left of midline extending from th e C5 through T1 levels. There is fairly extensive prevertebral soft tissue swel ling. Chest CT 12/06/172158 Signed Impressions: CONCLUSION: 1. There are numerous patchy infiltrates throughout the lungs left greater eliana n right. Some of the infiltrates are borderline cavitary particularly in the le ft upper lobe. Moderate-sized bilateral pleural effusions. The scattered pulmon gus disease is new since February 2017 Renal Ultrasound 12/06/17 0000 Signed Impressions: CONCLUSION: 1. Both kidneys are echogenic suggesting chronic medical renal disease. Small cyst lower pole right kidney Physical Exam GENERAL: Sedated on the vent, NAD SKIN: Cool and dry. Has embolic lesions in BUE and BLE. Edematous HEAD: Atraumatic. Normocephalic. No temporal wasting, or tenderness. EYES: Sweeny conjunctiva. No petechia or hemorrhage. Pupils equal, round and reactive to light. Extraocular movements full and intact. No scleral icterus. No injection or drainage. EARS, NOSE AND THROAT: Nose without bleeding or purulent nasal discharge. No sinus tenderness. Mucous membranes pink and moist. No oral lesions noted. NECK: Trachea midline. Supple and no meningeal signs. No swelling noted in neck CARDIOVASCULAR: Regular rate and rhythm. No murmurs, rubs or gallops heard RESPIRATORY: Clear to auscultation. Decreased breath sounds at bases ABDOMEN: Soft, not distended, no reaction to palpation. Bowel sounds present and normoactive. EXTREMITIES: No clubbing, cyanosis, or edema. No joint effusions. No calf tenderness. Has embolic lesions BLE and BUE. Has multiple wounds in LUE, with some slough and surrounding erythema. RUE - area of abscess with packing, surrounding redness NEUROLOGICAL: Opens eyes, did not follow commands for me PSYCHIATRIC: Unable to assess LINE: No evidence of infection Assessment & Plan Remarks IMPRESSION Sepsis present on admission MRSA sepsis Cervical epidural abscess Likely with endocarditis, clinically - echo negative RUE abscess Likely with endocarditis - has IVDU, likely septic lung emboli, has embolic lesions in BLE Renal insufficiency, due to infection, ?embolic RECOMMENDATION Follow Repeat BC to document clearing Continue Vanco Continue Cefepime Monitor progress Will need a long course of IV Abx Weaning as tolerated Monitor neurological progress D/W RN I will be off 12/10-12/13 Other ID covering in my absence Mony Szymanski MD Dec 09, 2017 11:18
--- NOTE | 2017-12-09 11:44 | HHI.NSPN ---
(Aftab Newman) History Chief Complaint: Unable to obtain due to patient's clinical condition. (Aftab Newman) Interval History 12/07: 47-year-old male with a history of IV drug abuse. Multiple admissions since March 2017 for several areas of cutaneous, soft tissue abscess formation , sepsis. Recent admission September 2017 for antecubital abscesses. Presents to the emergency department 12/06/2017 with generalized fatigue, abdominal pain, productive cough. Now complains of neck pain. Positive progressive numbness, dysesthesia upper extremities with quadriparesis noted today. He went emergently to the operating room for a C5-6 and C6-7 ACDF and evacuation of a cervical epidural and intradural abscess. Post-operatively the patient was admitted to the ISC unit for further care and monitoring. 12/08: The patient is intubated and mechanically ventilated when seen this morning. He had propofol infusing for sedation. Nursing reports that she was not able to obtain a temperature on the patient this morning and she increased the ambient temperature. An hour later his temp was 94.1. She placed warm blankets on him and an external warming blanket. His temp when seen was 97.5. Upon evaluation he had movement of the right foot to noxious stimulation. There was questionable movement of the left toes. He had no response with the upper extremities. He is noted to have a purplish rash to the distal lower extremities. Also the left pupil was slightly larger than the right and both were non-reactive. Breath sounds were decreased on the left. 12/09: When seen this morning the patient is agitated and moving his head about. His sedation has been on hold per Nursing. He is intubated and on CPAP/ PSV. He was did move the upper extremities and left lower to command and after that moved them spontaneously. No movement was noted to the right lower. (Aftab Newman) Exam Results 12/07/17 12/07/17 12/08/17 12/08/17 12/09/17 12/09/17 06:00 18:00 06:00 18:00 06:00 18:00 Intake Total 1800 ml 2320 ml 3500 ml 2173 ml 320 ml 1360 ml Output Total 500 ml 450 ml 2300 ml 225 ml Balance 1800 ml 1820 ml 3050 ml -127 ml 95 ml 1360 ml Intake Oral 220 ml 0 ml IV Total 1800 ml 2100 ml 1000 ml 2173 ml 1360 ml Tube Feeding 120 ml Other 2500 ml 200 ml Output Urine Total 500 ml 300 ml 1400 ml 200 ml Stool Total 0 ml Chest Tube Drainage Total 850 ml 25 ml Drainage Total 50 ml Estimated Blood Loss 150 ml Vital Signs Date Time Temp Pulse Resp B/P (MAP) Pulse Ox O2 Delivery O2 Flow Rate FiO2 12/09/17 09:46 40 12/09/17 09:46 100 40 12/09/17 06:00 65 12/09/17 04:37 100 40 12/09/17 04:00 40 12/09/17 04:00 68 12/09/17 04:00 97.4 67 22 132/61 (84) 100 12/09/17 02:00 61 12/09/17 00:58 100 40 12/09/17 00:00 97.2 62 22 134/69 (90) 100 12/09/17 00:00 40 12/09/17 00:00 63 12/08/17 22:31 22 12/08/17 22:00 64 12/08/17 21:54 100 40 12/08/17 20:00 97.7 70 22 132/65 (87) 100 12/08/17 20:00 68 12/08/17 20:00 40 12/08/17 19:00 100 Mechanical Ventilator 40 12/08/17 18:00 68 12/08/17 18:00 69 12/08/17 17:00 97.5 69 22 130/63 (85) 100 12/08/17 16:00 40 12/08/17 16:00 67 12/08/17 15:39 100 40 12/08/17 15:38 40 12/08/17 14:49 98.3 74 20 121/61 (81) 100 12/08/17 14:00 75 12/08/17 12:00 97.5 83 22 134/75 (94) 96 12/08/17 12:00 89 12/08/17 12:00 40 12/08/17 11:37 98 40 6/19/18 11:37 40 12/08/17 10:00 65 18 08:59 99 Ventilator 40 12/08/17 08:18 100 60 12/08/17 08:00 64 26 124/70 (88) 98 12/08/17 08:00 80 12/08/17 08:00 64 12/08/17 06:00 61 12/08/17 04:05 100 80 12/08/17 04:00 65 12/08/17 04:00 100 12/08/17 04:00 97.9 67 22 126/64 (84) 100 12/08/17 03:33 100 12/08/17 03:00 100 12/08/17 02:00 67 12/08/17 01:45 78 90/40 12/08/17 01:09 100 100 12/07/17 20:34 98 12/07/17 20:00 101 12/07/17 20:00 Room Air 12/07/17 20:00 99.0 102 24 187/100 (129) 94 12/07/17 18:45 87 21 176/110 (132) 99 12/07/17 15:29 85 18 149/93 (111) 97 12/07/17 12:45 86 20 148/84 (105) 95 12/07/17 08:30 88 20 151/84 (106) 93 12/06/17 22:00 80 16 166/96 (119) 96 Room Air 12/06/17 21:00 86 16 144/85 (104) 96 Nasal Cannula 12/06/17 20:02 97.9 85 16 153/96 (115) 94 Nasal Cannula 3.00 12/06/17 20:00 88 Room Air 12/06/17 19:51 16 12/06/17 19:42 105 16 140/95 (110) 95 (Aftab Newman) Physical Examination GENERAL: Drowsy, intubated & on CPAP/PSV. Sedation has been on hold for a while per Nursing. Agitated, moving his head from [id number] & biting ETT. SKIN: Intact dressing to anterior neck surgical incision. Purpura to both distal lower extremities. HEENT: Normocephalic, atraumatic. Pupils equal 2 to 3 mm & non-reactive. Orally intubated. OGT. NECK: Ione J cervical collar in place. Intact dressing to anterior surgical incision, ARELIS drain w/serosanguinous drainage. No JVD. Trachea midline. MUSCULOSKELETAL: No evident clubbing or deformities. Moved BUE & LLE to command and spontaneously after that. No movement of RLE. NEUROLOGICAL: Drowsy, sedation on hold. No eye opening to any stimulation. Pupils equal 2 to 3 mm & non-reactive. Nonverbal, intubated. Facial grimacing to noxious stimulation. Followed simple commands. Moved BUE & LLE to command, then noted to move them spontaneously, especially w/RLE noxious stimulation. No response w/RLE to command or local noxious stimulation. (Aftab Newman) Lab, Micro, Other Results Recent Impressions Chest X-Ray 12/09/17 Signed Impressions: CONCLUSION: Tubing catheters in good position. Moderate size right pleural effusion remains . No substantial pneumothorax seen Chest X-Ray 12/08/17 Signed Impressions: CONCLUSION: New small left-sided chest tube in place. No pneumothorax. Chest X-Ray 12/08/17 Signed Impressions: CONCLUSION: 1. There continues to be a left-sided pneumothorax which has increased in size compared to the earlier examination with approximately 3.3 cm of separation on today's examination. 2. No significant change in the scattered bilateral pulmonary infiltrates and right-sided pleural effusion. Chest X-Ray 12/08/17 Signed Impressions: CONCLUSION: Some air overlying the left pleura laterally suspicious for lower lobe pneumoth orax. Bilateral pleural effusions. ET tube in good position. Cervical Spine X-Ray 12/08/17 Signed Impressions: CONCLUSION: Inter vertebral discs are in place Cervical Spine MRI 12/07/17 Signed Impressions: CONCLUSION: 1. Suspected discitis involving the C6-C7 level and possibly the C5-C6 level. 2. Large anterior epidural abscess extending from the tip of the dens down to the T2 level this causes moderate to severe stenosis throughout the mid and low er cervical and upper thoracic spine. 3. Anterior prevertebral abscess seen to the left of midline extending from th e C5 through T1 levels. There is fairly extensive prevertebral soft tissue swel ling. Chest CT 12/06/172158 Signed Impressions: CONCLUSION: 1. There are numerous patchy infiltrates throughout the lungs left greater eliana n right. Some of the infiltrates are borderline cavitary particularly in the le ft upper lobe. Moderate-sized bilateral pleural effusions. The scattered pulmon gus disease is new since February 2017 Chest X-Ray 12/06/171958 Signed Impressions: CONCLUSION: Interval development of bilateral effusions and patchy airspace disease since A pril 2017. Laboratory Tests Test 12/06/17 20:00 12/06/17 20:10 12/06/17 22:50 12/07/17 01:15 White Blood Count 17.8 TH/MM3 Red Blood Count 5.08 MIL/MM3 Hemoglobin 13.6 GM/DL Hematocrit 40.5 % Mean Corpuscular Volume 79.8 FL Mean Corpuscular Hemoglobin 26.8 PG Mean Corpuscular Hemoglobin Concent 33.6 % Red Cell Distribution Width 16.4 % Platelet Count 121 TH/MM3 Mean Platelet Volume 9.5 FL Neutrophils (%) (Auto) 92.8 % Lymphocytes (%) (Auto) 3.9 % Monocytes (%) (Auto) 2.1 % Eosinophils (%) (Auto) 1.0 % Basophils (%) (Auto) 0.2 % Neutrophils # (Auto) 16.5 TH/MM3 Lymphocytes # (Auto) 0.7 TH/MM3 Monocytes # (Auto) 0.4 TH/MM3 Eosinophils # (Auto) 0.2 TH/MM3 Basophils # (Auto) 0.0 TH/MM3 CBC Comment DIFF FINAL Differential Comment Prothrombin Time 12.1 SEC Prothromb Time International Ratio 1.2 RATIO Activated Partial Thromboplast Time 27.4 SEC Blood Urea Nitrogen 75 MG/DL Creatinine 2.94 MG/DL Random Glucose 91 MG/DL Total Protein 7.9 GM/DL Albumin 2.2 GM/DL Calcium Level 8.4 MG/DL Magnesium Level 3.0 MG/DL Alkaline Phosphatase 191 U/L Aspartate Amino Transf (AST/SGOT) 46 U/L Alanine Aminotransferase (ALT/SGPT) 29 U/L Total Bilirubin 1.9 MG/DL Sodium Level 129 MEQ/L Potassium Level 3.0 MEQ/L Chloride Level 90 MEQ/L Carbon Dioxide Level 25.0 MEQ/L Anion Gap 14 MEQ/L Estimat Glomerular Filtration Rate 23 ML/MIN Lactic Acid Level 2.7 mmol/L 1.3 mmol/L Total Creatine Kinase 155 U/L Creatine Kinase MB 8.6 NG/ML Troponin I 0.03 NG/ML C-Reactive Protein 18.00 MG/DL Lipase 47 U/L Ethyl Alcohol Level LESS THAN 3 MG/DL Erythrocyte Sedimentation Rate 43 mm/hr B-Type Natriuretic Peptide 155 PG/ML Urine Color YELLOW Urine Turbidity CLOUDY Urine pH 5.0 Urine Specific [place] 1.012 Urine Protein NEG mg/dL Urine Glucose (UA) 50 mg/dL Urine Ketones NEG mg/dL Urine Occult Blood SMALL Urine Nitrite NEG Urine Bilirubin NEG Urine Urobilinogen 4.0 OR GREATER mg/dL Urine Leukocyte Esterase NEG Urine RBC 4 /hpf Urine WBC 9 /hpf Urine Squamous Epithelial Cells <1 /hpf Urine Amorphous Sediment RARE Urine Bacteria RARE /hpf Urine Hyaline Casts 12 /lpf Urine Mucus FEW /lpf Microscopic Urinalysis Comment CULTURE INDICATED Urine Opiates Screen POS Urine Barbiturates Screen NEG Urine Amphetamines Screen POS Urine Benzodiazepines Screen NEG Urine Cocaine Screen NEG Urine Cannabinoids Screen NEG Test 12/07/17 11:30 12/07/17 17:55 12/08/17 02:41 12/08/17 02:51 White Blood Count 14.5 TH/MM3 Red Blood Count 4.14 MIL/MM3 Hemoglobin 10.9 GM/DL Hematocrit 33.2 % Mean Corpuscular Volume 80.2 FL Mean Corpuscular Hemoglobin 26.3 PG Mean Corpuscular Hemoglobin Concent 32.8 % Red Cell Distribution Width 16.6 % Platelet Count 95 TH/MM3 Mean Platelet Volume 9.1 FL Neutrophils (%) (Auto) 91.8 % Lymphocytes (%) (Auto) 3.3 % Monocytes (%) (Auto) 3.7 % Eosinophils (%) (Auto) 1.0 % Basophils (%) (Auto) 0.2 % Neutrophils # (Auto) 13.3 TH/MM3 Lymphocytes # (Auto) 0.5 TH/MM3 Monocytes # (Auto) 0.5 TH/MM3 Eosinophils # (Auto) 0.1 TH/MM3 Basophils # (Auto) 0.0 TH/MM3 CBC Comment AUTO DIFF Differential Total Cells Counted 100 Neutrophils % (Manual) 67 % Band Neutrophils % 23 % Lymphocytes % 5 % Monocytes % 1 % Neutrophils # (Manual) 13.6 TH/MM3 Metamyelocytes 2 % Myelocytes 2 % Differential Comment FINAL DIFF MANUAL Toxic Vacuolation PRESENT Platelet Estimate LOW Platelet Morphology Comment NORMAL Ovalocytes Ozzy Cells 1+ Keratocytes OCC Blood Urea Nitrogen 68 MG/DL Creatinine 2.39 MG/DL Random Glucose 116 MG/DL Calcium Level 7.8 MG/DL Sodium Level 133 MEQ/L Potassium Level 3.0 MEQ/L Chloride Level 98 MEQ/L Carbon Dioxide Level 22.2 MEQ/L Anion Gap 13 MEQ/L Estimat Glomerular Filtration Rate 29 ML/MIN Prothrombin Time 12.2 SEC Prothromb Time International Ratio 1.2 RATIO Activated Partial Thromboplast Time 29.9 SEC Nasal Screen MRSA (PCR) MRSA DETECTED Blood Gas Puncture Site ART LINE Blood Gas Patient Temperature 98.6 Blood Gas HCO3 22 mmol/L Blood Gas Base Excess -4.7 mmol/L Blood Gas Oxygen Saturation 96 % Arterial Blood pH 7.23 Arterial Blood Partial Pressure CO2 54 mmHg Arterial Blood Partial Pressure O2 184 mmHg Arterial Blood Oxygen Content 14.0 Vol % Arterial Blood Carboxyhemoglobin 1.2 % Arterial Blood Methemoglobin 1.4 % Blood Gas Hemoglobin 10.1 G/DL Oxygen Delivery Device VENTILATOR Blood Gas Ventilator Setting PRVC/ AC Blood Gas Inspired Oxygen 100 % Test 12/08/17 05:05 12/08/17 05:25 12/08/17 09:35 12/09/17 04:20 White Blood Count 21.6 TH/MM3 18.3 TH/MM3 Red Blood Count 3.79 MIL/MM3 3.07 MIL/MM3 Hemoglobin 9.9 GM/DL 8.1 GM/DL Hematocrit 30.9 % 24.7 % Mean Corpuscular Volume 81.7 FL 80.3 FL Mean Corpuscular Hemoglobin 26.1 PG 26.2 PG Mean Corpuscular Hemoglobin Concent 31.9 % 32.7 % Red Cell Distribution Width 16.6 % 17.0 % Platelet Count 102 TH/MM3 105 TH/MM3 Mean Platelet Volume 9.9 FL 8.6 FL Blood Urea Nitrogen 66 MG/DL 80 MG/DL Creatinine 2.22 MG/DL 2.75 MG/DL Random Glucose 124 MG/DL 121 MG/DL Total Protein 6.0 GM/DL 6.1 GM/DL Albumin 1.4 GM/DL 1.3 GM/DL Calcium Level 7.7 MG/DL 8.3 MG/DL Alkaline Phosphatase 172 U/L 141 U/L Aspartate Amino Transf (AST/SGOT) 28 U/L 17 U/L Alanine Aminotransferase (ALT/SGPT) 16 U/L 14 U/L Total Bilirubin 1.2 MG/DL 0.7 MG/DL Sodium Level 140 MEQ/L 144 MEQ/L Potassium Level 3.6 MEQ/L 3.7 MEQ/L Chloride Level 104 MEQ/L 111 MEQ/L Carbon Dioxide Level 22.5 MEQ/L 19.0 MEQ/L Anion Gap 14 MEQ/L 14 MEQ/L Estimat Glomerular Filtration Rate 32 ML/MIN 25 ML/MIN Prothrombin Time 12.7 SEC 11.4 SEC Prothromb Time International Ratio 1.3 RATIO 1.1 RATIO Activated Partial Thromboplast Time 31.4 SEC 27.9 SEC Blood Gas Puncture Site ART LINE Blood Gas Patient Temperature 98.6 Blood Gas HCO3 18 mmol/L Blood Gas Base Excess -6.8 mmol/L Blood Gas Oxygen Saturation 94 % Arterial Blood pH 7.33 Arterial Blood Partial Pressure CO2 35 mmHg Arterial Blood Partial Pressure O2 85 mmHg Arterial Blood Oxygen Content 11.1 Vol % Arterial Blood Carboxyhemoglobin 1.1 % Arterial Blood Methemoglobin 1.3 % Blood Gas Hemoglobin 8.3 G/DL Oxygen Delivery Device VENTILATOR Blood Gas Ventilator Setting PRVC20/550/0.9/+5 Blood Gas Inspired Oxygen 40 % (Aftab Newman) Medical Decision Making Impression and Plan Impression: 1. Extensive cervical and upper thoracic anterior epidural abscess with significant canal and cord compromise. 2. C5-6 and C6-7 discitis. Significant destruction of the C6 vertebral body with osteomyelitis 3. History of IV drug abuse 4. History of bacterial endocarditis Postoperative Diagnosis: 1. Cervical epidural abscess 2. Cervical intradural abscess Patient remains critical. His sedation is on hold, agitated, moving head side-to -side & biting ETT. Moved BUE & LLE to command and then spontaneously. No response w/RLE to noxious stimulation. Pupils equal & non-reactive. Past 24 hrs: Normothermic. ARELIS drain with 20 mL output for the past 24 hrs as of shift change this morning. Reviewed labs for today. Decrease in leukocytosis. Drop in haemoglobin level. Slight increase in platelet count. INR 1.1 & aPTT 27.9. Worsening renal function. Improvement in alk phos. POD #1 () s/p: 1. C5-6 and C6-7 anterior cervical discectomy, evacuation of cervical epidural and intradural abscess. 2. C5-6 and C6-7 anterior interbody fusion, allograft bone 3. C5-7 anterior cervical instrumentation Plan: Primary & critical care management per Art Specialist. Neuro checks. Wean sedation & ventilation as appropriate. Ione J cervical collar at all times. Monitor ARELIS drain output. Mobilise patient w/assistance when appropriate. Physical & Occupational Therapy eval & tx. Will keep ARELIS drain for another day. (Aftab Newman) Attending Statement The exam, history, and the medical decision-making described in the above note were completed with the assistance of the mid-level provider. I reviewed and agree with the findings presented. I attest that I had a [id number] encounter with the patient on the same day, and personally performed and documented my assessment and findings in the medical record. Agitated with sedation decreased today. Moving upper extremities with good strength Moderate left lower extremity strength spontaneous Drain output diminishing. Discontinue drain He needs MRI of the remaining spine, preferably under sedation prior to extubation (Ryan Chu MD) Aftab Newman Dec 09, 2017 11:44 Ryan Chu MD Dec 09, 2017 20:47
[2017-12-09] MEDS ORDERED: SODIUM CHLOR 0.9% 1000 ML INJ 1,000 ML IV ONE (14:00)
[2017-12-09] MEDS: CEFEPIME INJ 2,000 MG in SODIUM CHLORIDE 0.9% INJ 100 ML IV SCH (17:54)
[2017-12-09] MEDS: DEXMEDETOMIDINE 200 MCG in NS 48 ML IV PRN (18:45)
[2017-12-09] MEDS ORDERED: DEXMEDETOMIDINE 200 MCG/50 ML Premix IV PRN (19:00)
[2017-12-09] MEDS: CHLORHEXIDINE 0.12% (ORAL KIT) 15 ML CUP OROPHARYNG SCH (20:00)
[2017-12-09] MEDS: niCARdipine 25 MG/NS 250 ML Vial2Bag or IV room IV PRN ×2 (20:39)
[2017-12-09] MEDS ORDERED: PHARMACY ORDERED LAB ONE (20:45)
--- NOTE | 2017-12-09 20:58 | HHI.CCPN ---
Subjective Remarks/Hospital Course Hospital Course: 47yM with prior IVDA and prior endocarditis who presented with right forearm abscess and severe sepsis. admitted under obs for additional work-up. complained of persistent and severe neck pain for which MRI c-spine was ordered and demonstrates large cervical epidural abscess and discitis. I was called to evaluate the patient. he is significantly weak in his upper and lower extremities and has severe back pain. I discussed the case with radiology, infectious disease, and neurosurgery. made NPO and plan for emergent cervical decompression and cage fusion. discussed with ID: will change zosyn to cefepime for [employer]MENT [employer]SEM[employer]ER penetrance. continue to follow up cultures and changed 2d echo to "urgent" from "routine" to rule out vegetations. patient is altered from severe sepsis and no additional history is obtainable. ROS is very limited, but + for arm/leg weakness, neck pain, back pain. subjective: 12/08: off vasopressors this AM. remains intubated. TTE being performed to eval for endocarditis. s/p cervical interbody cage fusion and diskectomy. 12/09: continues to fail SBT for somnolence and encephalopathy. today he is agitated, but not following commands. still with + blood cultures despite therapy. Cr rising, likely HUMAIRA secondary to ATN. patient clinically appears adequately hydrated with adequate uop. Objective Vital Signs Date Time Temp Pulse Resp B/P (MAP) Pulse Ox O2 Delivery O2 Flow Rate FiO2 12/09/17 20:39 71 123/57 12/09/17 20:05 100 40 12/09/17 16:00 97.6 31 12/09/17 07:15 Mechanical Ventilator 12/06/17 20:02 3.00 Intake and Output 12/09/17 12/09/17 12/09/17 07:59 15:59 23:59 Intake Total 1680 ml 1000 ml 675 ml Output Total 225 ml 535 ml Balance 1455 ml 1000 ml 140 ml Result Diagram: 12/09/17 0420 12/09/17 0420 Other Results Microbiology Date/Time Source Procedure Growth Status 12/07/17 01:15 Urine Random Urine Urine Culture - Final <10,000 CFU/ML MIXED GRAM POSITIVE FL... Complete Imaging Last Impressions Cervical Spine MRI 12/07/17 0000 Signed Impressions: CONCLUSION: 1. Suspected discitis involving the C6-C7 level and possibly the C5-C6 level. 2. Large anterior epidural abscess extending from the tip of the dens down to the T2 level this causes moderate to severe stenosis throughout the mid and low er cervical and upper thoracic spine. 3. Anterior prevertebral abscess seen to the left of midline extending from th e C5 through T1 levels. There is fairly extensive prevertebral soft tissue swel ling. Chest CT 12/06/172158 Signed Impressions: CONCLUSION: 1. There are numerous patchy infiltrates throughout the lungs left greater eliana n right. Some of the infiltrates are borderline cavitary particularly in the le ft upper lobe. Moderate-sized bilateral pleural effusions. The scattered pulmon gus disease is new since February 2017 Chest X-Ray 12/06/17 195 Signed Impressions: CONCLUSION: Interval development of bilateral effusions and patchy airspace disease since A pril 2017. Renal Ultrasound 12/06/17 0000 Signed Impressions: CONCLUSION: 1. Both kidneys are echogenic suggesting chronic medical renal disease. Small cyst lower pole right kidney Objective Remarks GENERAL: Middle-age male who appears much older than stated age, lying in bed, intubated, sedated HEENT: Normocephalic. Atraumatic. Pupils equal, round, reactive, conjugate. Mucous membranes are moist NECK: Trachea is midline. There is no JVD. neck incision c/d/i with ARELIS drain with minimal sanguinous output. CHEST: Equal chest rise. PRVC. full support. left chest tube to suction. CARDIOVASCULAR: Normal rate, regular rhythm. Sinus by telemetry. ABDOMEN: Soft, nontender, nondistended. No guarding. MUSCULOSKELETAL: Pulses 2+. No peripheral edema. NEUROLOGICAL: RASS -2. moves all extremities, weak, particularly LUE. SKIN: Multiple abrasions and abscesses in various stages of healing, the largest is on the right forearm which is approximately 3 cm x 2 cm and has recently been incised and drained with packing still in the wound. Track mcclain present. A/P Assessment and Plan Assessment: 47-year-old male with history of IV drug abuse and prior endocarditis presents with severe sepsis and large cervical epidural abscess with evidence of new and worsening acute upper and lower extremity myelopathy. Now s/p cervical decompression and cage fusion. remains critically ill. continue antibiotics and wean mechanical ventilation as tolerated. unsafe to extubate until mental status improves. Plan by systems: Neurologic: Cervical epidural abscess and discitis s/p cervical decompression, cage fusion 12/07 IV opiate abuse IV amphetamine abuse Acute metabolic encephalopathy secondary to severe sepsis Acute post-operative pain Frequent neurochecks Neurosurgery: Dr. Chu gabapentin 300mg po q8h tizanidine 4mg po q12h for pain oxycodone scheduled for post-op pain continue propofol for goal RASS -2. daily sedation vacation. added precedex today. Respiratory: Acute hypoxic and hypercarbic respiratory failure likely significant component of neuromuscular weakness from cervical epidural abscess prior to surgery: FVC 700mL, NIF -20. Watch closely for diaphragmatic weakness daily SBTs wean fio2 for goal spo2 > 90% vent bundle hob elevated nebs not ready to extubate today from a mental status standpoint. Cardiovascular: Severe sepsis Maintenance IV fluids 1L NS bolus today. Renal: Acute kidney injury Secondary to sepsis and bacteremia continue beaver continue mivf daily bmp send urine electrolytes, eos. -- Strict I/Os FEN/GI: Acute intravascular volume depletion- resolving. Acute protein calorie malnutrition: Severe NGT tube feeds ICU electrolyte protocol Daily BMP Maintenance IV fluids bowel regimen Heme/ID: Severe sepsis Gram-positive bacteremia: MRSA Cervical epidural abscess/discitis History of endocarditis 2d echo: negative for vegetations. TIM will not change medical management at this time. Vancomycin with pharmacy dosing cefepime IV Would narrow spectrum and sensitivities come back ID consult: Dr. Szymanski following Endocrine: -- SSI if required for hyperglycemia Prophylaxis: GI Prophylaxis Pepcid DVT Prophylaxis -- SCDs Holding pharmacologic DVT prophylaxis in the setting of neurosurgery Lines: Peripheral IVs. Dispo: remain in ICU. Very critically ill and worsening acute myelopathy. unable to separate from mechanical ventilation at this time. This patient remains critically ill with one or more organ systems which are or may become a threat to life. I have spent in excess of 32 minutes discontinuously in the care and management of this patient. This time is exclusive of procedures, and includes, but is not limited to, evaluation of the patient, review of the medical record, discussions with family, consultants, nursing staff, or respiratory therapy, and documentation in the medical record. Esteban Melissa MD Dec 09, 2017 20:58
[2017-12-10] VITALS (19 sets, daily range): BP systolic 115–175; BP diastolic 49–100; PULSE 68–104; RESP 22–25; TEMP 98–98.9; O2SAT 97–100
[2017-12-10] MEDS: oxyCODONE HCL ORAL CONC 5 MG/0.25 ML SYRINGE PO SCH ×6 (04:00→20:11)
[2017-12-10] MEDS: HYDROmorphone HCL PF 2 MG/ML VIAL IV PRN (05:17)
[2017-12-10] MEDS: SODIUM CHLOR 0.9% 1000 ML INJ 1,000 ML IV SCH ×4 (05:17→20:15)
[2017-12-10] MEDS: CEFEPIME INJ 2,000 MG in SODIUM CHLORIDE 0.9% INJ 100 ML IV SCH ×2 (05:17→17:40)
[2017-12-10 05:25] LABS: HEMATOCRIT 24.7 % (39.0-51.0); MEAN CELL VOLUME 80.6 FL (80.0-100.0); MEAN CORPUSCULAR HGB CONC 32.3 % (32.0-36.0); MEAN PLATELET VOLUME 8.3 FL (7.0-11.0); PLATELET COUNT 113 TH/MM3 (150-450); RED BLOOD COUNT 3.07 MIL/MM3 (4.50-5.90); RED CELL DISTRIBUTION WIDTH 17.5 % (11.6-17.2); WHITE BLOOD COUNT 11.5 TH/MM3 (4.0-11.0)
[2017-12-10 05:38] LABS: INTERNATIONAL NORMALIZED RATIO 1.1 RATIO
[2017-12-10 05:48] LABS: ALBUMIN 1.2 GM/DL (3.4-5.0); ALKALINE PHOSPHATASE 110 U/L (45-117); ALT (GPT) 15 U/L (12-78); AST (GOT) 21 U/L (15-37); BICARBONATE 18.9 MEQ/L (21.0-32.0); BLOOD UREA NITROGEN 72 MG/DL (7-18); CALCIUM 7.5 MG/DL (8.5-10.1); CHLORIDE 117 MEQ/L (98-107); CREATININE 2.33 MG/DL (0.60-1.30); GLOMERULAR FILTRATION RATE 30 ML/MIN (>89); GLUCOSE,RANDOM 95 MG/DL (74-106); RANDOM VANCOMYCIN 24.3 COMMENT; SODIUM (NA) 148 MEQ/L (136-145); TOTAL BILIRUBIN ADULT 0.6 MG/DL (0.2-1.0); TOTAL PROTEIN 5.8 GM/DL (6.4-8.2)
--- NOTE | 2017-12-10 06:30 | RADRPT ---
EXAM DATE: 12/10/2017 5:26 AM EDT AGE/SEX: 47 years / Male INDICATIONS: Short of breath. CLINICAL DATA: This is the patient's subsequent encounter. Patient reports that signs and symptoms h ave been present for 3 days and indicates a pain score of 0/10. MEDICAL/SURGICAL HISTORY: Non-responsive. Non-responsive. COMPARISON: [facility] [place], CHEST SINGLE AP, 12/09/2017. . FINDINGS: The endotracheal tube, nasogastric tube are both in good position. There is diffuse perihilar vascula r congestion and areas of consolidation particularly in the left upper lobe. Moderate-sized right ple ural effusion remain. CONCLUSION: Stable single view the chest. ET tube and nasogastric both good position. Diffuse airspace disease an d pleural effusions are unchanged Electronically signed by: Andres Powell MD 12/10/2017 6:29 AM EDT
[2017-12-10] MEDS: PROPOFOL 1000 MG/100 ML IV PRN (07:26)
[2017-12-10] MEDS: niCARdipine 25 MG/NS 250 ML Vial2Bag or IV room IV PRN ×6 (08:53→23:40)
[2017-12-10] MEDS: LIDOCAINE HCL 5% PATCH T-DERMAL SCH (08:53)
[2017-12-10] MEDS: GABAPENTIN 250 MG/5 ML UDC NG SCH ×3 (08:54→17:39)
[2017-12-10] MEDS: ENOXAPARIN SODIUM 30 MG/0.3 ML SYRINGE SQ SCH (08:54)
[2017-12-10] MEDS: DOCUSATE SODIUM 50 MG/SENNA 8.6 MG TAB PO SCH ×2 (08:54→20:12)
[2017-12-10] MEDS: REMOVE OLD LIDOCAINE PATCH T-DERMAL SCH ×2 (08:55→21:00)
[2017-12-10] MEDS: SODIUM CHLORIDE 0.9% FLUSH 10 ML FLUSH IV FLUSH SCH ×2 (08:55→20:13)
[2017-12-10] MEDS: CHLORHEXIDINE 0.12% (ORAL KIT) 15 ML CUP OROPHARYNG SCH ×2 (08:55→20:13)
[2017-12-10] MEDS: DEXMEDETOMIDINE 200 MCG in NS 48 ML IV PRN ×4 (10:20→22:35)
--- NOTE | 2017-12-10 11:20 | HHI.CCPN ---
Subjective Remarks/Hospital Course Hospital Course: 47yM with prior IVDA and prior endocarditis who presented with right forearm abscess and severe sepsis. admitted under obs for additional work-up. complained of persistent and severe neck pain for which MRI c-spine was ordered and demonstrates large cervical epidural abscess and discitis. I was called to evaluate the patient. he is significantly weak in his upper and lower extremities and has severe back pain. I discussed the case with radiology, infectious disease, and neurosurgery. made NPO and plan for emergent cervical decompression and cage fusion. discussed with ID: will change zosyn to cefepime for [employer] penetrance. continue to follow up cultures and changed 2d echo to "urgent" from "routine" to rule out vegetations. patient is altered from severe sepsis and no additional history is obtainable. ROS is very limited, but + for arm/leg weakness, neck pain, back pain. subjective: 12/08: off vasopressors this AM. remains intubated. TTE being performed to eval for endocarditis. s/p cervical interbody cage fusion and diskectomy. 12/09: continues to fail SBT for somnolence and encephalopathy. today he is agitated, but not following commands. still with + blood cultures despite therapy. Cr rising, likely HUMAIRA secondary to ATN. patient clinically appears adequately hydrated with adequate uop. 12/10: Remains sedated, orally intubated on mechanical ventilation. Objective Vital Signs Date Time Temp Pulse Resp B/P (MAP) Pulse Ox O2 Delivery O2 Flow Rate FiO2 12/10/17 08:53 82 122/51 12/10/17 08:39 100 40 12/10/17 08:00 98.9 22 12/10/17 07:00 Mechanical Ventilator 12/06/17 20:02 3.00 Intake and Output 12/10/17 12/10/17 12/11/17 08:00 16:00 00:00 Intake Total 866 ml 310 ml Output Total 2150 ml Balance -1284 ml 310 ml Result Diagram: 12/10/17 0415 12/10/17 0415 Other Results Microbiology Date/Time Source Procedure Growth Status 12/07/17 22:58 Abscess Neck Gram Stain - Final Complete 12/07/17 22:58 Wound Culture - Final S. Aureus Mrsa Complete Imaging Last Impressions Cervical Spine MRI 12/07/17 0000 Signed Impressions: CONCLUSION: 1. Suspected discitis involving the C6-C7 level and possibly the C5-C6 level. 2. Large anterior epidural abscess extending from the tip of the dens down to the T2 level this causes moderate to severe stenosis throughout the mid and low er cervical and upper thoracic spine. 3. Anterior prevertebral abscess seen to the left of midline extending from th e C5 through T1 levels. There is fairly extensive prevertebral soft tissue swel ling. Chest CT 12/06/172158 Signed Impressions: CONCLUSION: 1. There are numerous patchy infiltrates throughout the lungs left greater eliana n right. Some of the infiltrates are borderline cavitary particularly in the le ft upper lobe. Moderate-sized bilateral pleural effusions. The scattered pulmon gus disease is new since February 2017 Chest X-Ray 12/06/17 195 Signed Impressions: CONCLUSION: Interval development of bilateral effusions and patchy airspace disease since A pril 2017. Renal Ultrasound 12/06/17 0000 Signed Impressions: CONCLUSION: 1. Both kidneys are echogenic suggesting chronic medical renal disease. Small cyst lower pole right kidney Objective Remarks GENERAL: Middle-age male who appears much older than stated age, lying in bed, intubated, sedated HEENT: Normocephalic. Atraumatic. Pupils equal, round, reactive, conjugate. Mucous membranes are moist NECK: Trachea is midline. There is no JVD. neck incision c/d/i with ARELIS drain with minimal sanguinous output. CHEST: Equal chest rise. PRVC. full support. left chest tube to suction. CARDIOVASCULAR: Normal rate, regular rhythm. Sinus by telemetry. ABDOMEN: Soft, nontender, nondistended. No guarding. MUSCULOSKELETAL: Pulses 2+. No peripheral edema. NEUROLOGICAL: RASS -2. moves all extremities, weak, particularly LUE. SKIN: Multiple abrasions and abscesses in various stages of healing, the largest is on the right forearm which is approximately 3 cm x 2 cm and has recently been incised and drained with packing still in the wound. Track mcclain present. A/P Assessment and Plan Assessment: 47-year-old male with history of IV drug abuse and prior endocarditis presents with severe sepsis and large cervical epidural abscess with evidence of new and worsening acute upper and lower extremity myelopathy. Now s/p cervical decompression and cage fusion. remains critically ill. continue antibiotics and wean mechanical ventilation as tolerated. unsafe to extubate until mental status improves. Plan by systems: Neurologic: Cervical epidural abscess and discitis s/p cervical decompression, cage fusion 12/07 IV opiate abuse IV amphetamine abuse Acute metabolic encephalopathy secondary to severe sepsis Acute post-operative pain Frequent neurochecks Neurosurgery: Dr. Chu gabapentin 300mg po q8h tizanidine 4mg po q12h for pain oxycodone scheduled for post-op pain continue propofol for goal RASS -2. daily sedation vacation. added precedex today. Respiratory: Acute hypoxic and hypercarbic respiratory failure likely significant component of neuromuscular weakness from cervical epidural abscess prior to surgery: FVC 700mL, NIF -20. Watch closely for diaphragmatic weakness daily SBTs wean fio2 for goal spo2 > 90% vent bundle hob elevated nebs not ready to extubate today from a mental status standpoint. Cardiovascular: Severe sepsis Maintenance IV fluids 1L NS bolus today. Renal: Acute kidney injury Secondary to sepsis and bacteremia continue beaver continue mivf daily bmp send urine electrolytes, eos. -- Strict I/Os FEN/GI: Acute intravascular volume depletion- resolving. Acute protein calorie malnutrition: Severe NGT tube feeds ICU electrolyte protocol Daily BMP Maintenance IV fluids bowel regimen Heme/ID: Severe sepsis Gram-positive bacteremia: MRSA Cervical epidural abscess/discitis History of endocarditis 2d echo: negative for vegetations. TIM will not change medical management at this time. Vancomycin with pharmacy dosing cefepime IV Would narrow spectrum and sensitivities come back ID consult: Dr. Szymanski following Endocrine: -- SSI if required for hyperglycemia Prophylaxis: GI Prophylaxis Pepcid DVT Prophylaxis -- SCDs Holding pharmacologic DVT prophylaxis in the setting of neurosurgery Lines: Peripheral IVs. Dispo: remain in ICU. Very critically ill and worsening acute myelopathy. unable to separate from mechanical ventilation at this time. This patient remains critically ill with one or more organ systems which are or may become a threat to life. I have spent in excess of 30 minutes discontinuously in the care and management of this patient. This time is exclusive of procedures, and includes, but is not limited to, evaluation of the patient, review of the medical record, discussions with family, consultants, nursing staff, or respiratory therapy, and documentation in the medical record. Pieter Michel MD Dec 10, 2017 11:20
--- NOTE | 2017-12-10 11:31 | HHI.NSPN ---
(Aftab Newman) History Chief Complaint: Unable to obtain due to patient's clinical condition. (Aftab Newman) Interval History 12/07: 47-year-old male with a history of IV drug abuse. Multiple admissions since March 2017 for several areas of cutaneous, soft tissue abscess formation , sepsis. Recent admission September 2017 for antecubital abscesses. Presents to the emergency department 12/06/2017 with generalized fatigue, abdominal pain, productive cough. Now complains of neck pain. Positive progressive numbness, dysesthesia upper extremities with quadriparesis noted today. He went emergently to the operating room for a C5-6 and C6-7 ACDF and evacuation of a cervical epidural and intradural abscess. Post-operatively the patient was admitted to the ISC unit for further care and monitoring. 12/08: The patient is intubated and mechanically ventilated when seen this morning. He had propofol infusing for sedation. Nursing reports that she was not able to obtain a temperature on the patient this morning and she increased the ambient temperature. An hour later his temp was 94.1. She placed warm blankets on him and an external warming blanket. His temp when seen was 97.5. Upon evaluation he had movement of the right foot to noxious stimulation. There was questionable movement of the left toes. He had no response with the upper extremities. He is noted to have a purplish rash to the distal lower extremities. Also the left pupil was slightly larger than the right and both were non-reactive. Breath sounds were decreased on the left. 12/09: When seen this morning the patient is agitated and moving his head about. His sedation has been on hold per Nursing. He is intubated and on CPAP/ PSV. He was did move the upper extremities and left lower to command and after that moved them spontaneously. No movement was noted to the right lower. 12/10: This morning the patient is lethargic but is sedated with dexmedetomidine and propofol. He remains intubated and is on PRVC A/C settings. He moved the right upper extremity to noxious stimulation to the left side extremities, but he had no response with any extremity to noxious stimulation applied to it. The pupils were unequal and questionably reactive. Nursing reports that he is to go for his MRI scans of the spine later today. She also said the patient's sedation was resumed due to his agitation and elevated systolic blood pressure. (Aftab Newman) Exam Results 12/08/17 12/08/17 12/09/17 12/09/17 12/10/17 12/10/17 06:00 18:00 06:00 18:00 06:00 18:00 Intake Total 3500 ml 2173 ml 320 ml 3035 ml 866 ml 310 ml Output Total 450 ml 2300 ml 225 ml 535 ml 2150 ml Balance 3050 ml -127 ml 95 ml 2500 ml -1284 ml 310 ml Intake Oral 0 ml IV Total 1000 ml 2173 ml 2360 ml 310 ml Tube Feeding 120 ml 495 ml 506 ml Other 2500 ml 200 ml 180 ml 360 ml Output Urine Total 300 ml 1400 ml 200 ml 450 ml 2100 ml Stool Total 0 ml 0 ml 0 ml Chest Tube Drainage Total 850 ml 25 ml 85 ml 50 ml Drainage Total 50 ml Estimated Blood Loss 150 ml Vital Signs Date Time Temp Pulse Resp B/P (MAP) Pulse Ox O2 Delivery O2 Flow Rate FiO2 12/10/17 10:00 86 12/10/17 08:53 82 122/51 12/10/17 08:39 100 40 12/10/17 08:00 40 12/10/17 08:00 98.9 80 22 124/50 (74) 100 12/10/17 08:00 80 12/10/17 07:00 100 Mechanical Ventilator 40 12/10/17 06:00 101 12/10/17 05:47 22 12/10/17 05:00 22 12/10/17 04:03 98 40 12/10/17 04:00 80 12/10/17 04:00 98.6 70 22 132/60 (84) 100 12/10/17 04:00 40 12/10/17 02:00 80 12/10/17 00:14 100 Ventilator 12/10/17 00:11 100 40 12/10/17 00:00 98.4 68 22 126/56 (79) 100 12/10/17 00:00 40 12/10/17 00:00 80 12/09/17 22:00 80 6/20/18 20:39 71 123/57 618 20:05 100 40 62018 20:00 40 18 20:00 98.4 84 24 141/70 (93) 94 12/09/17 20:00 80 62018 19:00 100 Mechanical Ventilator 12/09/17 18:00 91 12/09/17 16:00 73 18 16:00 40 12/09/17 16:00 97.6 77 31 144/84 (104) 95 18 15:39 95 40 12/09/17 14:00 73 12/09/17 12:00 40 12/09/17 12:00 98.1 73 10 130/72 (91) 95 12/09/17 12:00 73 12/09/17 11:42 100 40 12/09/17 10:00 71 12/09/17 09:46 40 12/09/17 09:46 100 40 12/09/17 08:00 40 12/09/17 08:00 97.9 65 22 128/62 (84) 100 18 08:00 66 12/09/17 07:15 Mechanical Ventilator 12/09/17 06:00 65 12/09/17 04:37 100 40 12/09/17 04:00 40 12/09/17 04:00 68 12/09/17 04:00 97.4 67 22 132/61 (84) 100 18 02:00 61 12/09/17 00:58 100 40 12/09/17 00:00 97.2 62 22 134/69 (90) 100 18 00:00 40 2018 00:00 63 18 22:00 64 18 21:54 100 40 18 20:00 97.7 70 22 132/65 (87) 100 18 20:00 68 18 20:00 40 18 19:00 100 Mechanical Ventilator 40 18 18:00 68 618 18:00 69 618 17:00 97.5 69 22 130/63 (85) 100 18 16:00 40 18 16:00 67 618 15:39 100 40 12/08/17 15:38 40 12/08/17 14:49 98.3 74 20 121/61 (81) 100 12/08/17 14:00 75 12/08/17 12:00 97.5 83 22 134/75 (94) 96 12/08/17 12:00 89 12/08/17 12:00 40 12/08/17 11:37 98 40 12/08/17 11:37 40 12/08/17 10:00 65 12/08/17 08:59 99 Ventilator 40 12/08/17 08:18 100 60 12/08/17 08:00 64 26 124/70 (88) 98 12/08/17 08:00 80 12/08/17 08:00 64 12/08/17 06:00 61 12/08/17 04:05 100 80 12/08/17 04:00 65 12/08/17 04:00 100 12/08/17 04:00 97.9 67 22 126/64 (84) 100 12/08/17 03:33 100 12/08/17 03:00 100 12/08/17 02:00 67 12/08/17 01:45 78 90/40 12/08/17 01:09 100 100 12/07/17 20:34 98 12/07/17 20:00 101 12/07/17 20:00 Room Air 12/07/17 20:00 99.0 102 24 187/100 (129) 94 12/07/17 18:45 87 21 176/110 (132) 99 12/07/17 15:29 85 18 149/93 (111) 97 12/07/17 12:45 86 20 148/84 (105) 95 (Aftab Newman) Physical Examination GENERAL: Lethargic, intubated & PRVC A/C, breathing over set rate. Dexmedetomidine infusing at 0.8 mcg/kg/hr & propofol 20 mcg/kg/min infusing for sedation. Nicardipine infusing at 9 mg/hr for blood pressure. SKIN: Intact dressing to anterior neck surgical incision. Purpura to both distal lower extremities. HEENT: Normocephalic, atraumatic. Right pupil 2 & left 3 mm, both questionably reactive. Orally intubated. OGT. NECK: [place] J cervical collar in place. Intact dressing to anterior surgical incision. No JVD. Trachea midline. MUSCULOSKELETAL: No evident clubbing or deformities. Moved RUE to noxious stimulation to left side and spontaneously once after that. No movement of LUE & BLE. NEUROLOGICAL: Lethargic but sedated. No eye opening to any stimulation. Right pupil 2 & left 3 mm, both questionably reactive. Trace corneal reflex bilaterally. Nonverbal, intubated. Trace cough reflex to suctioning. Did not follow any commands. Moved RUE to left-sided extremity noxious stimulation and after that spontaneously once. No movement of RUE, LUE or BLE to local noxious stimulation applied to that extremity or to central noxious stimulation. (Aftab Newman) Lab, Micro, Other Results Recent Impressions Chest X-Ray 12/10/17 0500 Signed Impressions: CONCLUSION: Stable single view the chest. ET tube and nasogastric both good position. Diffu se airspace disease and pleural effusions are unchanged Chest X-Ray 12/09/17 0000 Signed Impressions: CONCLUSION: Tubing catheters in good position. Moderate size right pleural effusion remains . No substantial pneumothorax seen Chest X-Ray 12/08/17 0000 Signed Impressions: CONCLUSION: New small left-sided chest tube in place. No pneumothorax. Chest X-Ray 12/08/17 0000 Signed Impressions: CONCLUSION: 1. There continues to be a left-sided pneumothorax which has increased in size compared to the earlier examination with approximately 3.3 cm of separation on today's examination. 2. No significant change in the scattered bilateral pulmonary infiltrates and right-sided pleural effusion. Chest X-Ray 12/08/17 0000 Signed Impressions: CONCLUSION: Some air overlying the left pleura laterally suspicious for lower lobe pneumoth orax. Bilateral pleural effusions. ET tube in good position. Cervical Spine X-Ray 12/08/17 0000 Signed Impressions: CONCLUSION: Inter vertebral discs are in place Laboratory Tests Test 12/07/17 11:30 12/07/17 17:55 12/08/17 02:41 12/08/17 02:51 White Blood Count 14.5 TH/MM3 Red Blood Count 4.14 MIL/MM3 Hemoglobin 10.9 GM/DL Hematocrit 33.2 % Mean Corpuscular Volume 80.2 FL Mean Corpuscular Hemoglobin 26.3 PG Mean Corpuscular Hemoglobin Concent 32.8 % Red Cell Distribution Width 16.6 % Platelet Count 95 TH/MM3 Mean Platelet Volume 9.1 FL Neutrophils (%) (Auto) 91.8 % Lymphocytes (%) (Auto) 3.3 % Monocytes (%) (Auto) 3.7 % Eosinophils (%) (Auto) 1.0 % Basophils (%) (Auto) 0.2 % Neutrophils # (Auto) 13.3 TH/MM3 Lymphocytes # (Auto) 0.5 TH/MM3 Monocytes # (Auto) 0.5 TH/MM3 Eosinophils # (Auto) 0.1 TH/MM3 Basophils # (Auto) 0.0 TH/MM3 CBC Comment AUTO DIFF Differential Total Cells Counted 100 Neutrophils % (Manual) 67 % Band Neutrophils % 23 % Lymphocytes % 5 % Monocytes % 1 % Neutrophils # (Manual) 13.6 TH/MM3 Metamyelocytes 2 % Myelocytes 2 % Differential Comment FINAL DIFF MANUAL Toxic Vacuolation PRESENT Platelet Estimate LOW Platelet Morphology Comment NORMAL Ovalocytes [place] Cells 1+ Keratocytes OCC Blood Urea Nitrogen 68 MG/DL Creatinine 2.39 MG/DL Random Glucose 116 MG/DL Calcium Level 7.8 MG/DL Sodium Level 133 MEQ/L Potassium Level 3.0 MEQ/L Chloride Level 98 MEQ/L Carbon Dioxide Level 22.2 MEQ/L Anion Gap 13 MEQ/L Estimat Glomerular Filtration Rate 29 ML/MIN Prothrombin Time 12.2 SEC Prothromb Time International Ratio 1.2 RATIO Activated Partial Thromboplast Time 29.9 SEC Nasal Screen MRSA (PCR) MRSA DETECTED Blood Gas Puncture Site ART LINE Blood Gas Patient Temperature 98.6 Blood Gas HCO3 22 mmol/L Blood Gas Base Excess -4.7 mmol/L Blood Gas Oxygen Saturation 96 % Arterial Blood pH 7.23 Arterial Blood Partial Pressure CO2 54 mmHg Arterial Blood Partial Pressure O2 184 mmHg Arterial Blood Oxygen Content 14.0 Vol % Arterial Blood Carboxyhemoglobin 1.2 % Arterial Blood Methemoglobin 1.4 % Blood Gas Hemoglobin 10.1 G/DL Oxygen Delivery Device VENTILATOR Blood Gas Ventilator Setting PRVC/ AC Blood Gas Inspired Oxygen 100 % Test 12/08/17 05:05 12/08/17 05:25 12/08/17 09:35 12/09/17 04:20 White Blood Count 21.6 TH/MM3 18.3 TH/MM3 Red Blood Count 3.79 MIL/MM3 3.07 MIL/MM3 Hemoglobin 9.9 GM/DL 8.1 GM/DL Hematocrit 30.9 % 24.7 % Mean Corpuscular Volume 81.7 FL 80.3 FL Mean Corpuscular Hemoglobin 26.1 PG 26.2 PG Mean Corpuscular Hemoglobin Concent 31.9 % 32.7 % Red Cell Distribution Width 16.6 % 17.0 % Platelet Count 102 TH/MM3 105 TH/MM3 Mean Platelet Volume 9.9 FL 8.6 FL Blood Urea Nitrogen 66 MG/DL 80 MG/DL Creatinine 2.22 MG/DL 2.75 MG/DL Random Glucose 124 MG/DL 121 MG/DL Total Protein 6.0 GM/DL 6.1 GM/DL Albumin 1.4 GM/DL 1.3 GM/DL Calcium Level 7.7 MG/DL 8.3 MG/DL Alkaline Phosphatase 172 U/L 141 U/L Aspartate Amino Transf (AST/SGOT) 28 U/L 17 U/L Alanine Aminotransferase (ALT/SGPT) 16 U/L 14 U/L Total Bilirubin 1.2 MG/DL 0.7 MG/DL Sodium Level 140 MEQ/L 144 MEQ/L Potassium Level 3.6 MEQ/L 3.7 MEQ/L Chloride Level 104 MEQ/L 111 MEQ/L Carbon Dioxide Level 22.5 MEQ/L 19.0 MEQ/L Anion Gap 14 MEQ/L 14 MEQ/L Estimat Glomerular Filtration Rate 32 ML/MIN 25 ML/MIN Prothrombin Time 12.7 SEC 11.4 SEC Prothromb Time International Ratio 1.3 RATIO 1.1 RATIO Activated Partial Thromboplast Time 31.4 SEC 27.9 SEC Blood Gas Puncture Site ART LINE Blood Gas Patient Temperature 98.6 Blood Gas HCO3 18 mmol/L Blood Gas Base Excess -6.8 mmol/L Blood Gas Oxygen Saturation 94 % Arterial Blood pH 7.33 Arterial Blood Partial Pressure CO2 35 mmHg Arterial Blood Partial Pressure O2 85 mmHg Arterial Blood Oxygen Content 11.1 Vol % Arterial Blood Carboxyhemoglobin 1.1 % Arterial Blood Methemoglobin 1.3 % Blood Gas Hemoglobin 8.3 G/DL Oxygen Delivery Device VENTILATOR Blood Gas Ventilator Setting PRVC20/550/0.9/+5 Blood Gas Inspired Oxygen 40 % Test 12/09/17 20:50 12/10/17 04:15 Vancomycin Level Trough 28.0 MCG/ML White Blood Count 11.5 TH/MM3 Red Blood Count 3.07 MIL/MM3 Hemoglobin 8.0 GM/DL Hematocrit 24.7 % Mean Corpuscular Volume 80.6 FL Mean Corpuscular Hemoglobin 26.0 PG Mean Corpuscular Hemoglobin Concent 32.3 % Red Cell Distribution Width 17.5 % Platelet Count 113 TH/MM3 Mean Platelet Volume 8.3 FL Prothrombin Time 11.0 SEC Prothromb Time International Ratio 1.1 RATIO Activated Partial Thromboplast Time 27.1 SEC Blood Urea Nitrogen 72 MG/DL Creatinine 2.33 MG/DL Random Glucose 95 MG/DL Total Protein 5.8 GM/DL Albumin 1.2 GM/DL Calcium Level 7.5 MG/DL Alkaline Phosphatase 110 U/L Aspartate Amino Transf (AST/SGOT) 21 U/L Alanine Aminotransferase (ALT/SGPT) 15 U/L Total Bilirubin 0.6 MG/DL Sodium Level 148 MEQ/L Potassium Level 3.7 MEQ/L Chloride Level 117 MEQ/L Carbon Dioxide Level 18.9 MEQ/L Anion Gap 12 MEQ/L Estimat Glomerular Filtration Rate 30 ML/MIN Random Vancomycin Level 24.3 COMMENT (Aftab Newman) Medical Decision Making Impression and Plan Impression: 1. Extensive cervical and upper thoracic anterior epidural abscess with significant canal and cord compromise. 2. C5-6 and C6-7 discitis. Significant destruction of the C6 vertebral body with osteomyelitis 3. History of IV drug abuse 4. History of bacterial endocarditis Postoperative Diagnosis: 1. Cervical epidural abscess 2. Cervical intradural abscess Patient remains critical. His is now sedated due to agitation & elevated SBP. He moved the RUE to left-sided extremity noxious stimulation and then spontaneously once. No response w/any extremity to local noxious stimulation applied to it. Pupils unequal & questionably reactive. Past 24 hrs: Afebrile. ARELIS drain with no output recorded for the past 24 hrs as of shift change this morning. D/c'd . Reviewed labs for today. Improvement in leukocytosis. Minimal drop in haemoglobin level. Increase in platelet count. INR 1.1 & aPTT 27.1. Sodium 148. Improvement in renal function. Alk phos WNL. POD #2 () s/p: 1. C5-6 and C6-7 anterior cervical discectomy, evacuation of cervical epidural and intradural abscess. 2. C5-6 and C6-7 anterior interbody fusion, allograft bone 3. C5-7 anterior cervical instrumentation ARELIS drain d/c'd . Plan: Primary & critical care management per [place]. Neuro checks. Wean sedation & ventilation as appropriate. [place] J cervical collar at all times. Monitor ARELIS drain output. Mobilise patient w/assistance when appropriate. Physical & Occupational Therapy eval & tx. (Aftab Newman) Attending Statement The exam, history, and the medical decision-making described in the above note were completed with the assistance of the mid-level provider. I reviewed and agree with the findings presented. I attest that I had a [id number] encounter with the patient on the same day, and personally performed and documented my assessment and findings in the medical record. Patient remains intubated and sedated. Emergent evacuation of cervical epidural abscess. Need further imaging of the remaining spine. MRI pending. Initial attempted MRI aborted due to patient cardiopulmonary instability. (Ryan Chu MD) Aftab Newman Dec 10, 2017 11:31 Ryan Chu MD Dec 15, 2017 19:39
[2017-12-11] VITALS (18 sets, daily range): BP systolic 115–178; BP diastolic 62–99; PULSE 62–118; RESP 20–27; TEMP 98.1–99.4; O2SAT 94–100
[2017-12-11] MEDS: oxyCODONE HCL ORAL CONC 5 MG/0.25 ML SYRINGE PO SCH ×5 (00:02→18:26)
[2017-12-11] MEDS: DEXMEDETOMIDINE 200 MCG in NS 48 ML IV PRN ×5 (02:56→16:15)
[2017-12-11] MEDS: niCARdipine 25 MG/NS 250 ML Vial2Bag or IV room IV PRN ×10 (02:58→16:21)
[2017-12-11] MEDS: PROPOFOL 1000 MG/100 ML IV PRN ×2 (04:47→10:17)
[2017-12-11] MEDS: CEFEPIME INJ 2,000 MG in SODIUM CHLORIDE 0.9% INJ 100 ML IV SCH ×2 (05:28→18:36)
[2017-12-11 05:50] LABS: HEMATOCRIT 24.9 % (39.0-51.0); MEAN CELL VOLUME 81.8 FL (80.0-100.0); MEAN CORPUSCULAR HEMOGLOBIN 26.1 PG (27.0-34.0); MEAN PLATELET VOLUME 8.1 FL (7.0-11.0); PLATELET COUNT 119 TH/MM3 (150-450); RED BLOOD COUNT 3.05 MIL/MM3 (4.50-5.90); WHITE BLOOD COUNT 18.7 TH/MM3 (4.0-11.0)
[2017-12-11 05:52] LABS: INTERNATIONAL NORMALIZED RATIO 1.2 RATIO; PROTHROMBIN TIME - PATIENT 11.7 SEC (9.8-11.6)
[2017-12-11 06:13] LABS: ALBUMIN 1.3 GM/DL (3.4-5.0); ALT (GPT) 13 U/L (12-78); AST (GOT) 20 U/L (15-37); BICARBONATE 23.1 MEQ/L (21.0-32.0); BLOOD UREA NITROGEN 57 MG/DL (7-18); CALCIUM 7.6 MG/DL (8.5-10.1); CHLORIDE 121 MEQ/L (98-107); CREATININE 1.71 MG/DL (0.60-1.30); GLOMERULAR FILTRATION RATE 43 ML/MIN (>89); GLUCOSE,RANDOM 139 MG/DL (74-106); SODIUM (NA) 153 MEQ/L (136-145)
[2017-12-11 06:20] LABS: ALKALINE PHOSPHATASE 125 U/L (45-117); RANDOM VANCOMYCIN 14.1 COMMENT; TOTAL BILIRUBIN ADULT 0.5 MG/DL (0.2-1.0); TOTAL PROTEIN 6.7 GM/DL (6.4-8.2)
[2017-12-11] MEDS: CHLORHEXIDINE 0.12% (ORAL KIT) 15 ML CUP OROPHARYNG SCH ×2 (08:00→20:00)
[2017-12-11] MEDS: SODIUM CHLORIDE 0.9% FLUSH 10 ML FLUSH IV FLUSH SCH (08:26)
[2017-12-11] MEDS: ENOXAPARIN SODIUM 30 MG/0.3 ML SYRINGE SQ SCH (08:26)
[2017-12-11] MEDS: DOCUSATE SODIUM 50 MG/SENNA 8.6 MG TAB PO SCH (08:26)
[2017-12-11] MEDS: GABAPENTIN 250 MG/5 ML UDC NG SCH ×3 (08:27→18:36)
[2017-12-11] MEDS: LIDOCAINE HCL 5% PATCH T-DERMAL SCH (08:27)
[2017-12-11] MEDS ORDERED: VANCOMYCIN 1,000 MG/NS 250 ML IV SCH ×2 (12:00)
--- NOTE | 2017-12-11 14:09 | RADRPT ---
EXAM DATE: 12/11/2017 1:02 PM EDT AGE/SEX: 47 years / Male INDICATIONS: . Abscess. Neck pain. CLINICAL DATA: This is the patient's subsequent encounter. Patient reports that signs and symptoms h ave been present for 4 - 6 days and indicates a pain score of Nonresponsive. MEDICAL/SURGICAL HISTORY: Hypertension. endocarditis, IVDA, renal insufficiency Fusion, cervic al. COMPARISON: [facility] [place] CERVICAL SPINE W/O CONTRAST, 12/07/2017. . TECHNIQUE: Multiplanar, multisequence MRI examination of the cervical spine was performed without co ntrast. FINDINGS: There continues to be an anterior fluid collection extending from the tip of the dens down to the T2 level. This is thought to be an epidural collection. A 6 anterior subdural collection coul d've a similar appearance. This was present on the prior exam. This measures up to 6 mm in AP dimensi on at the C2 level, 4 mm at the C4 level, 7 mm at the C6 level, 9 mm the C7 level, and 7 mm at the T1 level. This collection abuts the chest dated the cord at the C6, C7 and T1 levels. This causes an im pression on the anterior right side of the cord at the C7 level. There is CSF seen around the cord th roughout. There does appear to be similar signal to the anterior epidural collection extending into t he C5-C6 and C6-7 neural foramina. There continues to be anterior prevertebral increased signal/fluid . There is some increased signal in the posterior soft tissues at the C5-C7 levels. There is fluid in the nasopharynx and oropharynx. The patient does appear to be intubated. On the prior exam there is an anterior left lateral abscess in the prevertebral soft tissues which is not seen today. Vertebrae: Anterior fusion plate extending from C5 through C7. There appear to be stabilization art samara or bone plugs at the C5-C6 and C6-C7 levels. Alignment: Normal. Cord: Normal configuration and signal. Post Fossa: The cerebellar tonsils are normal in position. CONCLUSION: 1. Status post placement of anterior cervical fusion plate at the C5-C7 levels. 2. Continued anterior fluid collection likely related to an epidural versus subdural collection. Thi s extends from the tip of the dens to the T2 level. This looks similar to the prior exam. There is mi ld narrowing of the thecal sac throughout however there is CSF seen around the cord throughout. 3. Continued prevertebral fluid/inflammatory change. Electronically signed by: Shan Herr MD 12/11/2017 2:08 PM EDT
--- NOTE | 2017-12-11 14:14 | HHI.NSPN ---
(Uma Rene) Note Status Status: Progress Note (Uma Rene) Interval History Interval History 47-year-old male with epidural abscess, discitis, osteomyelitis status post C5- 6 and C6-7 anterior cervical discectomy, evacuation of cervical epidural and intradural abscess, C5-6 and C6-7 anterior interbody fusion, allograft bone, anterior cervical instrumentation 12/11: Intubated, sedated. Cervical collar in place. (Uma Rene) Labs, Micro, & Vital Signs Results Date Time Temp Pulse Resp B/P (MAP) Pulse Ox O2 Delivery O2 Flow Rate FiO2 12/11/17 11:32 99 40 12/11/17 11:14 69 117/62 12/11/17 10:00 69 12/11/17 08:34 99 40 12/11/17 08:15 75 121/63 12/11/17 08:00 99.1 78 20 134/74 (94) 97 12/11/17 08:00 71 12/11/17 08:00 40 12/11/17 07:00 98 Mechanical Ventilator 40 12/11/17 06:00 88 12/11/17 05:30 92 149/81 12/11/17 04:29 95 40 12/11/17 04:00 99.0 91 27 144/79 (100) 94 12/11/17 04:00 91 12/11/17 02:58 92 132/67 12/11/17 02:00 84 12/11/17 00:49 99 40 12/11/17 00:00 118 12/11/17 00:00 40 12/11/17 00:00 98.6 118 26 178/99 (125) 95 12/10/17 23:40 122 173/99 12/10/17 23:00 100 160/84 12/10/17 22:00 80 12/10/17 20:15 116 197/119 12/10/17 20:00 40 12/10/17 20:00 98.0 104 24 175/100 (125) 100 12/10/17 20:00 98 12/10/17 19:44 100 40 12/10/17 19:00 100 Mechanical Ventilator 40 12/10/17 18:00 74 12/10/17 17:01 100 40 12/10/17 16:00 40 12/10/17 16:00 85 12/10/17 16:00 98.8 81 24 115/62 (79) 100 Constitutional Vital Signs Date Time Temp Pulse Resp B/P (MAP) Pulse Ox O2 Delivery O2 Flow Rate FiO2 12/11/17 11:32 99 40 12/11/17 11:14 69 117/62 12/11/17 10:00 69 12/11/17 08:34 99 40 12/11/17 08:15 75 121/63 12/11/17 08:00 99.1 78 20 134/74 (94) 97 12/11/17 08:00 71 12/11/17 08:00 40 12/11/17 07:00 98 Mechanical Ventilator 40 12/11/17 06:00 88 12/11/17 05:30 92 149/81 12/11/17 04:29 95 40 12/11/17 04:00 99.0 91 27 144/79 (100) 94 12/11/17 04:00 91 12/11/17 02:58 92 132/67 12/11/17 02:00 84 12/11/17 00:49 99 40 12/11/17 00:00 118 12/11/17 00:00 40 12/11/17 00:00 98.6 118 26 178/99 (125) 95 12/10/17 23:40 122 173/99 12/10/17 23:00 100 160/84 12/10/17 22:00 80 12/10/17 20:15 116 197/119 12/10/17 20:00 40 12/10/17 20:00 98.0 104 24 175/100 (125) 100 12/10/17 20:00 98 12/10/17 19:44 100 40 12/10/17 19:00 100 Mechanical Ventilator 40 12/10/17 18:00 74 12/10/17 17:01 100 40 12/10/17 16:00 40 12/10/17 16:00 85 12/10/17 16:00 98.8 81 24 115/62 (79) 100 (Uma Rene) Review of Systems ROS Limitations: Intubated (Uma Rene) Physical Exam The patient is intubated and sedated. No obvious distress Cervical wound with OptiForm dressing Cervical collar immobilized by a [place] collar Musculoskeletal: No obvious deformities to extremities, sedated and not following commands to motor testing Neuro: Sedated, pupils equal, facial motor appears symmetric at rest. Plantars flexors bilaterally Heart regular rate rhythm Lungs clear (Uma Rene) Mr Duncan remains intubated and sedated. No obvious distress. No response to pain Cervical wound with OptiForm dressing intact in his neck Cervical collar immobilized by a [place] collar Musculoskeletal: No obvious deformities to extremities, sedated and not following commands to motor testing Neuro: Sedated, pupils equal, facial motor appears symmetric at rest. Plantars silent response bilaterally Heart regular rate rhythm Lungs clear (David Brandon MD) Medications Current Medications Current Medications Medications (Trade) Dose Ordered Sig/Brennon Route PRN Reason Start Time Stop Time Status Last Admin Dose Admin Pharmacy Profile Note 0 ml @ 0 mls/hr UNSCH OTHER 12/06/17 22:30 Sodium Chloride 1,000 ml @ 125 mls/hr Q8H IV 12/06/17 22:22 12/10/17 20:15 Sodium Chloride (NS Flush) 2 ml UNSCH PRN IV FLUSH FLUSH AFTER USING IV ACCESS 12/06/17 22:30 Sodium Chloride (NS Flush) 2 ml BID IV FLUSH 12/07/17 09:00 12/11/17 08:26 Acetaminophen (Tylenol) 650 mg Q4H PRN PO TEMP > 100.4 12/06/17 22:30 12/07/17 07:51 Ondansetron HCl (Zofran Odt) 4 mg Q6H PRN PO NAUSEA/VOMITING 12/06/17 22:30 Naloxone HCl (Narcan Inj) 0.4 mg UNSCH PRN IV PUSH SEE LABEL COMMENTS 12/06/17 22:30 Senna/Docusate Sodium (Pearl-Colace) 1 tab BID PO 12/07/17 09:00 12/11/17 08:26 Magnesium Hydroxide (Milk Of Magnesia Liq) 30 ml Q12H PRN PO Mild constipation 12/06/17 22:30 Sennosides (Senokot) 17.2 mg Q12H PRN PO Moderate constipation 12/06/17 22:30 Bisacodyl (Dulcolax Supp) 10 mg DAILY PRN RECTAL SEVERE CONSITIPATION 12/06/17 22:30 Lactulose (Lactulose Liq) 30 ml DAILY PRN PO SEVERE CONSITIPATION 12/06/17 22:30 Lidocaine HCl (Lidoderm 5% Patch.12 Hr) 1 patch DAILY T-DERMAL 12/07/17 10:15 12/11/17 08:27 Enoxaparin Sodium (Lovenox Inj) 30 mg DAILY SQ 12/07/17 11:00 12/11/17 08:26 Miscellaneous Information 1 Q12HR T-DERMAL 12/07/17 21:00 12/10/17 08:55 Vancomycin HCl 1250 mg/Sodium Chloride 262.5 ml @ 250 mls/hr Q24H IV 12/07/17 21:00 Future Hold 12/08/17 21:32 Cefepime HCl 2000 mg/Sodium Chloride 100 ml @ 200 mls/hr Q12H IV 12/07/17 18:00 12/11/17 05:28 Hydromorphone HCl (Dilaudid Pf Inj) 1 mg Q4H PRN IV PAIN SCALE 1 TO 10 12/07/17 20:30 12/10/17 05:17 Phenylephrine HCl 40 mg/Dextrose 500 ml @ 30 mls/hr TITRATE PRN IV Blood Pressure Management 12/08/17 02:30 12/08/17 01:45 Terbutaline Sulfate (Brethine Inj) 1 mg UNSCH PRN SQ FOR EXTRAVASATION PROTOCOL 12/08/17 02:30 Propofol 100 ml @ 24 mls/hr TITRATE PRN IV SEDATION 12/08/17 02:45 12/11/17 10:17 Gabapentin (Neurontin Liq) 300 mg TID NG 12/08/17 13:00 12/11/17 14:00 Tizanidine HCl (Zanaflex) 4 mg Q12HR PO 12/08/17 10:30 12/11/17 08:26 Oxycodone HCl (Roxicodone Intensol Liq) 20 mg Q4HR PO 12/08/17 12:00 12/11/17 14:01 Nicardipine HCl 25 mg/Sodium Chloride 260 ml @ 52 mls/hr TITRATE PRN IV Blood Pressure Management 12/09/17 18:00 12/11/17 11:14 Chlorhexidine Gluconate (Peridex 0.12% Liq) 15 ml BID@0800,2000 OROPHARYNG 12/09/17 20:00 12/11/17 08:00 Dexmedetomidine HCl 200 mcg/ Sodium Chloride 50 ml @ 4.28 mls/hr TITRATE PRN IV Desired RASS 12/09/17 19:00 12/11/17 05:31 Labetalol HCl (Trandate Inj) 10 mg Q4H PRN IV PUSH SYS BP GREATER THAN 140 MMHG 12/10/17 11:00 Vancomycin HCl 1000 mg/Sodium Chloride 250 ml @ 250 mls/hr Q48H IV 12/11/17 12:00 12/11/17 14:02 Miscellaneous Information ([facility] [place] Ordered Lab Info) SPECIFIC LAB TO BE ... ONCE ONCE .XX 12/17/17 11:45 12/17/17 11:46 Ceftaroline Fosamil 600 mg/ Sodium Chloride 100 ml @ 100 mls/hr Q8H IV 12/11/17 12:30 UNV (Uma Rene) Current Medications Current Medications Piperacillin Sod/ Tazobactam Sod 50 ml @ 100 mls/hr ONCE ONCE IV Last administered on 12/06/17at 20:44; Start 12/06/17 at 20:00; Stop 12/06/17 at 20:29 ; Status DC Vancomycin HCl 1000 mg/Sodium Chloride 250 ml @ 250 mls/hr ONCE ONCE IV Last administered on 12/06/17at 21:24; Start 12/06/17 at 20:00; Stop 12/06/17 at 20:59 ; Status DC Sodium Chloride 1,000 ml @ 999 mls/hr BOLUS ONCE IV Last administered on 12/06at 20:16; Start 12/06/17 at 20:00; Stop 12/06/17 at 21:00; Status DC Sodium Chloride 500 ml @ 500 mls/hr BOLUS ONCE IV Last administered on at 22:20; Start 12/06/17 at 21:00; Stop 12/06/17 at 21:59; Status DC Lidocaine/ Epinephrine (Xylocaine-Epi 1%-1:100,000 Inj) 30 ml ONCE ONCE INFIL Last administered on 12/06/17at 22:44; Start 12/06/17 at 22:15; Stop 12/06/17 at 22:16; Status DC Pharmacy Profile Note 0 ml @ 0 mls/hr UNSCH OTHER ; Start 12/06/17 at 22:30 Vancomycin HCl 1000 mg/Sodium Chloride 250 ml @ 250 mls/hr Q24H IV ; Start at 21:00; Status Cancel Piperacillin Sod/ Tazobactam Sod 50 ml @ 100 mls/hr Q6H IV Last administered on 12/07/17at 07:51; Start 12/07/17 at 02:00; Stop 12/07/17 at 08:33; Status DC Sodium Chloride 1,000 ml @ 125 mls/hr Q8H IV Last administered on 12/11/17at 14 :22; Start 12/06/17 at 22:22 Sodium Chloride (NS Flush) 2 ml UNSCH PRN IV FLUSH FLUSH AFTER USING IV ACCESS ; Start 12/06/17 at 22:30 Sodium Chloride (NS Flush) 2 ml BID IV FLUSH Last administered on 12/11/17at 08: 26; Start 12/07/17 at 09:00 Acetaminophen (Tylenol) 650 mg Q4H PRN PO TEMP > 100.4 Last administered on at 07:51; Start 12/06/17 at 22:30 Ondansetron HCl (Zofran Odt) 4 mg Q6H PRN PO NAUSEA/VOMITING; Start 12/06/17 at 22:30 Naloxone HCl (Narcan Inj) 0.4 mg UNSCH PRN IV PUSH SEE LABEL COMMENTS; Start at 22:30 Senna/Docusate Sodium (Pearl-Colace) 1 tab BID PO Last administered on at 08:26; Start 12/07/17 at 09:00 Magnesium Hydroxide (Milk Of Magnesia Liq) 30 ml Q12H PRN PO Mild constipation ; Start 12/06/17 at 22:30 Sennosides (Senokot) 17.2 mg Q12H PRN PO Moderate constipation; Start 12/06/17 at 22:30 Bisacodyl (Dulcolax Supp) 10 mg DAILY PRN RECTAL SEVERE CONSITIPATION; Start at 22:30 Lactulose (Lactulose Liq) 30 ml DAILY PRN PO SEVERE CONSITIPATION; Start at 22:30 Potassium Chloride (KCl) 60 meq ONCE ONCE PO Last administered on 12/07/17at 00 :22; Start 12/06/17 at 22:45; Stop 12/06/17 at 22:46; Status DC Miscellaneous Information ([facility] [place] Ordered Lab Info) SPECIFIC LAB TO BE DRAWN: VANCO TROUGH DATE TO BE DR... ONCE ONCE .XX Last administered on at 20:45; Start 12/09/17 at 20:45; Stop 12/09/17 at 20:46; Status DC Piperacillin Sod/ Tazobactam Sod 50 ml @ 100 mls/hr Q6H IV Last administered on 12/07/17at 14:49; Start 12/07/17 at 14:00; Stop 12/07/17 at 17:17; Status DC Lidocaine HCl (Lidoderm 5% Patch.12 Hr) 1 patch DAILY T-DERMAL Last administered on 12/11/17at 08:27; Start 12/07/17 at 10:15 Enoxaparin Sodium (Lovenox Inj) 30 mg DAILY SQ Last administered on 12/11/17at 08:26; Start 12/07/17 at 11:00 Miscellaneous Information 1 Q12HR T-DERMAL Last administered on 12/10/17at 08:55 ; Start 12/07/17 at 21:00 Vancomycin HCl 1250 mg/Sodium Chloride 262.5 ml @ 250 mls/hr Q24H IV Last administered on 12/08/17at 21:32; Start 12/07/17 at 21:00; Status Future Hold Cefepime HCl 2000 mg/Sodium Chloride 100 ml @ 200 mls/hr Q12H IV Last administered on 12/11/17 05:28; Start 12/07/17 at 18:00 Sodium Chloride 1,000 ml @ 999 mls/hr BOLUS ONCE IV Last administered on 12/07at 17:54; Start 12/07/17 at 17:30; Stop 12/07/17 at 18:30; Status DC Hydromorphone HCl (Dilaudid Pf Inj) 1 mg Q4H PRN IV PAIN SCALE 1 TO 10 Last administered on 12/10/17at 05:17; Start 12/07/17 at 20:30 Lidocaine/ Epinephrine (Xylocaine-Epi 1%-1:100,000 Inj) 20 ml STK-MED ONCE .ROUTE Last administered on 12/07/17at 22:47; Start 12/07/17 at 20:55; Stop at 20:56; Status DC Thrombin (Thrombin Top Soln) 10,000 units STK-MED ONCE .ROUTE Last administered on 12/07/17at 22:47; Start 12/07/17 at 21:02; Stop 12/07/17 at 21:03 ; Status DC Gelatin (Gelfoam 100 Top) 1 foam STK-MED ONCE .ROUTE Last administered on at 22:47; Start 12/07/17 at 21:02; Stop 12/07/17 at 21:03; Status DC Gentamicin Sulfate (Gentamicin Inj) 240 mg STK-MED ONCE .ROUTE Last administered on 12/07/17at 22:47; Start 12/07/17 at 21:02; Stop 12/07/17 at 21:03 ; Status DC Labetalol HCl (Trandate Inj) 100 mg STK-MED ONCE .ROUTE ; Start 12/07/17 at 21: 28; Stop 12/07/17 at 21:29; Status DC Sufentanil Citrate (Sufenta Inj) 250 mcg STK-MED ONCE .ROUTE ; Start 12/07/17 at 21:37; Stop 12/07/17 at 21:38; Status DC Propofol 150 ml @ As Directed STK-MED ONCE .ROUTE ; Start 12/07/17 at 21:38; Stop 12/07/17 at 21:39; Status DC Ketamine HCl (Ketalar Inj) 500 mg STK-MED ONCE .ROUTE ; Start 12/07/17 at 21:46 ; Stop 12/07/17 at 21:47; Status DC Gelatin (Gelfoam 100 Top) 1 foam STK-MED ONCE .ROUTE ; Start 12/07/17 at 21:56; Stop 12/07/17 at 21:57; Status DC Phenylephrine HCl (Neosynephrine Inj) 40 mg STK-MED ONCE .ROUTE ; Start at 01:41; Stop 12/08/17 at 01:42; Status DC Propofol 0 ml @ As Directed STK-MED ONCE .ROUTE ; Start 12/08/17 at 01:41; Stop 12/08/17 at 01:42; Status DC Phenylephrine HCl 40 mg/Dextrose 500 ml @ 30 mls/hr TITRATE PRN IV Blood Pressure Management Last administered on 12/08/17at 01:45; Start 12/08/17 at 02: 30 Terbutaline Sulfate (Brethine Inj) 1 mg UNSCH PRN SQ FOR EXTRAVASATION PROTOCOL ; Start 12/08/17 at 02:30 Propofol 100 ml @ 24 mls/hr TITRATE PRN IV SEDATION Last administered on at 10:17; Start 12/08/17 at 02:45 Methadone HCl (Dolophine Inj) 30 mg ONCE ONCE IV PUSH Last administered on at 10:30; Start 12/08/17 at 10:30; Stop 12/08/17 at 11:55; Status DC Gabapentin (Neurontin Liq) 300 mg TID NG Last administered on 12/11/17at 14:00; Start 12/08/17 at 13:00 Tizanidine HCl (Zanaflex) 4 mg Q12HR PO Last administered on 12/11/17at 08:26; Start 12/08/17 at 10:30 Oxycodone HCl (Roxicodone Intensol Liq) 20 mg Q4HR PO Last administered on 12/11at 14:01; Start 12/08/17 at 12:00 Lactated Ringer's 1,000 ml @ As Directed STK-MED ONCE IV ; Start 12/07/17 at 12 :00; Stop 12/08/17 at 14:25; Status DC Sodium Chloride 250 ml @ As Directed STK-MED ONCE IV ; Start 12/07/17 at 12:00 ; Stop 12/08/17 at 14:25; Status DC Sodium Chloride 500 ml @ As Directed STK-MED ONCE IV ; Start 12/07/17 at 12:00 ; Stop 12/08/17 at 14:25; Status DC Parenteral Electrolytes 1,000 ml @ As Directed STK-MED ONCE IV ; Start at 12:00; Stop 12/08/17 at 14:25; Status DC Lidocaine HCl (Xylocaine-Mpf 1% Inj) 5 ml STK-MED ONCE OTHER ; Start 12/07/17 at 12:00; Stop 12/08/17 at 14:25; Status DC Rocuronium [place] (Zemuron Inj) 100 mg STK-MED ONCE IV PUSH ; Start 12/07/17 at 12:00; Stop 12/08/17 at 14:25; Status DC Phenylephrine HCl (Neosynephrine/ NS 1000 Mcg/10ml Syr) 2,000 mcg STK-MED ONCE IV ; Start 12/07/17 at 12:00; Stop 12/08/17 at 14:25; Status DC Phenylephrine HCl (Neosynephrine Inj) 20 mg STK-MED ONCE IV ; Start 12/07/17 at 12:00; Stop 12/08/17 at 14:25; Status DC Ephedrine Sulfate (ePHEDrine/NS 25 MG/5 ML SYR) 25 mg STK-MED ONCE IV ; Start at 12:00; Stop 12/08/17 at 14:25; Status DC Dexamethasone Sodium Phosphate (Decadron Inj) 8 mg STK-MED ONCE IV ; Start 12/07 at 12:00; Stop 12/08/17 at 14:25; Status DC Propofol (Diprivan 200 Mg/20 ml Inj) 200 mg STK-MED ONCE IV ; Start 12/07/17 at 12:00; Stop 12/08/17 at 14:25; Status DC Sodium Chloride 1,000 ml @ 999 mls/hr BOLUS ONCE IV Last administered on 12/09at 15:58; Start 12/09/17 at 14:00; Stop 12/09/17 at 15:00; Status DC Nicardipine HCl 25 mg/Sodium Chloride 260 ml @ 52 mls/hr TITRATE PRN IV Blood Pressure Management Last administered on 12/11/17at 16:21; Start 12/09/17 at 18: 00 Chlorhexidine Gluconate (Peridex 0.12% Liq) 15 ml BID@0800,2000 OROPHARYNG Last administered on 12/11/17at 08:00; Start 12/09/17 at 20:00 Dexmedetomidine HCl 50 ml @ 4.28 mls/hr TITRATE PRN IV Desired RASS; Start at 19:00; Status Cancel Dexmedetomidine HCl 200 mcg/ Sodium Chloride 50 ml @ 4.28 mls/hr TITRATE PRN IV Desired RASS Last administered on 12/11/17at 16:15; Start 12/09/17 at 19:00 Labetalol HCl (Trandate Inj) 10 mg Q4H PRN IV PUSH SYS BP GREATER THAN 140 MMHG ; Start 12/10/17 at 11:00 Vancomycin HCl 1000 mg/Sodium Chloride 250 ml @ 250 mls/hr Q48H IV Last administered on 12/11/17at 14:02; Start 12/11/17 at 12:00 Miscellaneous Information ([facility] [place] Ordered Lab Info) SPECIFIC LAB TO BE ... ONCE ONCE .XX ; Start 12/17/17 at 11:45; Stop 12/17/17 at 11:46 Ceftaroline Fosamil 600 mg/ Sodium Chloride 100 ml @ 100 mls/hr Q8H IV Last administered on 12/11/17at 15:56; Start 12/11/17 at 15:00 (David Brandon MD) Medical Decision Making MDM Remarks 47-year-old male with epidural abscess, discitis, osteomyelitis status post C5- 6 and C6-7 anterior cervical discectomy, evacuation of cervical epidural and intradural abscess, C5-6 and C6-7 anterior interbody fusion, allograft bone, anterior cervical instrumentation by Dr. Chu 12/08/17 (Uma Rene) Plan Plan Remarks Continue sedation and vent weaning as tolerated, Continue neuro checks, Follow-up examination, Continue IV antibiotics per infectious disease (Uma Rene) Attending Statement As above I reviewed his follow up MRI Thoracic Spine MRI 12/11/17 0000 Signed Impressions: CONCLUSION: 1. There is an anterior extra-axial fluid collection extending from the dens t o T2. This was present on the prior cervical spine and does not appear signific ant changed. This could be an anterior epidural or subdural abscess. 2. Increased signal throughout the epidural space throughout the thoracic spin e extending from the T2-T3 through the T11-T12 level concerning for abscess thr oughout this region. 3. Mild disc changes at the T3-T4 through T6-T7 levels as described above. Sig nificant stenosis from the disc changes is not seen. 4. Multiple pulmonary masses, areas of consolidation, and effusions. Lumbar Spine MRI 12/11/17 0000 Signed Impressions: CONCLUSION: 1. Abnormal signal seen throughout the epidural space. This concerning for inf ection. 2. More focal anterior epidural collections at the L4 and L5 and upper sacral regions concerning for abscess. 3. There is severe narrowing of the thecal sac beginning at the L1 level and e xtending into the sacrum. CSF is seen not seen around the nerve roots throughou t these levels. 4. Increased signal within the L5-S1 disc space anteriorly. The posterior dis c margin appears intact. This is nonspecific. Early infection cannot be ruled o ut. There is no bony destruction. Cervical Spine MRI 12/11/17 0000 Signed Impressions: CONCLUSION: 1. Status post placement of anterior cervical fusion plate at the C5-C7 levels . 2. Continued anterior fluid collection likely related to an epidural versus valles bdural collection. This extends from the tip of the dens to the T2 level. This looks similar to the prior exam. There is mild narrowing of the thecal sac thro ughout however there is CSF seen around the cord throughout. 3. Continued prevertebral fluid/inflammatory change. Chest X-Ray 12/10/17 0500 Signed Impressions: CONCLUSION: Stable single view the chest. ET tube and nasogastric both good position. Diffu se airspace disease and pleural effusions are unchanged He has residual multifocal abscess. He is not a candidate for further surgery, as am unable to reach the area of abscess. His prognosis is exremedly poor. Likely endocarditis. 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 I reviewed and agree with the findings presented. I attest that I had a [id number] encounter with the patient on the same day, and personally performed and documented my assessment and findings in the medical record. (David Brandon MD) Uma Rene Dec 11, 2017 14:14 David Brandon MD Dec 11, 2017 17:11
[2017-12-11] MEDS: SODIUM CHLOR 0.9% 1000 ML INJ 1,000 ML IV SCH ×2 (14:17→14:22)
--- NOTE | 2017-12-11 14:25 | RADRPT ---
EXAM DATE: 12/11/2017 12:51 PM EDT AGE/SEX: 47 years / Male INDICATIONS: . Abscess. CLINICAL DATA: This is the patient's subsequent encounter. Patient reports that signs and symptoms h ave been present for 4 - 6 days and indicates a pain score of Nonresponsive. MEDICAL/SURGICAL HISTORY: Hypertension. endocarditis, IVDA Fusion, cervical. COMPARISON: No prior exams available for comparison. TECHNIQUE: Multiplanar, multisequence MRI of the thoracic spine was performed. FINDINGS: Again noted is the anterior fluid collection representing an anterior epidural abscess or subdural abscess. This extends from the tip of dens down to the C2 level. This causes a prominent imp ression on the cord at the C7 level. There continues to be CSF around the cord at the T1-T2 levels. T here is increased signal throughout the epidural space extending from the T2-T3 level down to the T11 -T12 level. Vertebrae: Normal vertebral body height. Homogeneous marrow signal. Alignment: Normal. Cord: Normal position and configuration. There are multiple pulmonary masses seen. There are bilateral effusions and areas of consolidation at the lower lungs. T1-T2: Again noted is the anterior extra-axial fluid collection causing a mild impression on the the tony sac. There continues be CSF around the cord. T2-T3: The anterior extra axial fluid collection ends at this level. T3-T4: There is a minimal central disc protrusion or osteophyte without significant stenosis T4-T5: There is a mild right paracentral disc protrusion/osteophyte. T5-T6: There is a mild right paracentral disc protrusion/osteophyte. T6-T7: There is a mild left lateral recess disc protrusion/osteophyte. T7-T8: The thecal sac has a normal diameter. No evidence of disc bulge or protrusion. T8-T9: The thecal sac has a normal diameter. No evidence of disc bulge or protrusion. T9-T10: The thecal sac has a normal diameter. No evidence of disc bulge or protrusion. T10-T11: The thecal sac has a normal diameter. No evidence of disc bulge or protrusion. T11-T12: The thecal sac has a normal diameter. No evidence of disc bulge or protrusion. T12-L1: The thecal sac has a normal diameter. No evidence of disc bulge or protrusion. CONCLUSION: 1. There is an anterior extra-axial fluid collection extending from the dens to T2. This was present on the prior cervical spine and does not appear significant changed. This could be an anterior epidu ral or subdural abscess. 2. Increased signal throughout the epidural space throughout the thoracic spine extending from the T 2-T3 through the T11-T12 level concerning for abscess throughout this region. 3. Mild disc changes at the T3-T4 through T6-T7 levels as described above. Significant stenosis from the disc changes is not seen. 4. Multiple pulmonary masses, areas of consolidation, and effusions. Electronically signed by: Shan Herr MD 12/11/2017 2:24 PM EDT
--- NOTE | 2017-12-11 14:34 | RADRPT ---
EXAM DATE: 12/11/2017 1:36 PM EDT AGE/SEX: 47 years / Male INDICATIONS: Abscess. CLINICAL DATA: This is the patient's subsequent encounter. Patient reports that signs and symptoms h ave been present for 4 - 6 days and indicates a pain score of Nonresponsive. MEDICAL/SURGICAL HISTORY: Hypertension. endocarditis, IVDA Fusion, cervical. COMPARISON: No prior exams available for comparison. TECHNIQUE: Multiplanar, multisequence MRI of the lumbar spine was performed without contrast. Patie nt was scanned in a sitting position; neutral, flexion, and extension scans were performed in the sa gittal plane. FINDINGS: The abnormal signal seen throughout the epidural region in the thoracic spine actually con tinues into the lumbar spine. It appears to cause severe stenosis of the thecal sac with no significa nt CSF seen around the nerve roots beginning at the L1 level and extending into the sacrum. In additi on there appears to be anterior epidural fluid collection extending from the superior aspect of T4 do wn to the inferior aspect of the L4-5 disc level. This anterior epidural fluid collection measures ap proximate 3.6 cm in height, 2.0 cm in transverse dimension and 1.1 cm in AP dimension. There also is anterior epidural fluid seen extending from the superior aspect of L5 to the S2 level concerning for possible abscess. This is best appreciated on sagittal images. Vertebra: The lumbar vertebral bodies appear normal height. There are some minimal increased signal within the anterior inferior aspect of L2, the anterior inferior aspect of L3 and the anterior aspect of L5. The endplates appear grossly preserved. There is some increased signal within the L5-S1 disc but the endplates appear intact. The anterior disc margins difficult to fully appreciate. The posteri or disc margin appears intact.. Conus: Normal level and configuration. CONCLUSION: 1. Abnormal signal seen throughout the epidural space. This concerning for infection. 2. More focal anterior epidural collections at the L4 and L5 and upper sacral regions concerning for abscess. 3. There is severe narrowing of the thecal sac beginning at the L1 level and extending into the sacr um. CSF is seen not seen around the nerve roots throughout these levels. 4. Increased signal within the L5-S1 disc space anteriorly. The posterior disc margin appears intac t. This is nonspecific. Early infection cannot be ruled out. There is no bony destruction. Electronically signed by: Shan Herr MD 12/11/2017 2:33 PM EDT
[2017-12-11] MEDS: CEFTAROLINE INJ 600 MG in SODIUM CHLORIDE 0.9% INJ 100 ML IV SCH (15:56)
--- NOTE | 2017-12-11 16:57 | HHI.IDPN ---
Subjective Subjective Remarks ID [facility] for . Patient is a 47-year-old male, with known history of active IV drug use, presented to the hospital complaining of an infection in his right forearm were he had injected about 3 days ago. He also has had some subjective complaints of fever and chills. Patient apparently also has been having problem with pain in the neck area that goes to his shoulder worse on the left side than on the right side, as well as left-sided chest pain. He denies any sore throat or any respiratory complaint as far as cough or congestion. Has not had any nausea or vomiting. He is also has some lower rib cage pain. Denies any urinary complaints. On presentation he was found to have an abscess in his right forearm, and had an I&D done. CT of the chest is showing some infiltrates as well as some cavitary lesions and some round lesions. Chest x-ray showing some bilateral infiltrates. His creatinine was also elevated, and renal ultrasound did not show any obstruction, and possibly has some findings of medical renal disease. 2 blood cultures done on admission are now reported as growing gram- positive cocci in pairs and clusters. Patient's drug screen is positive for amphetamines and opiates. 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 He has had multiple infections in his upper extremity related to injections from his IV drug use. The last admission for infection in his arm was September 2017. He had an echo done at that time which did not show any vegetation in the mitral valve. Infectious disease consultation has been requested to evaluate the patient. Overnight notes reviewed D/W RN On the vent All blood cultures with MRSA Intraop Cx with MRSA. Afebrile BP okay, not on pressors. s/p 1. C5-6 and C6-7 anterior cervical discectomy, evacuation of cervical epidural and intradural abscess. 2. C5-6 and C6-7 anterior interbody fusion, allograft bone 3. C5-7 anterior cervical instrumentation Antibiotics Vancomycin Cefepime Current Medications Medications (Trade) Dose Ordered Sig/Brennon Route Start Time Stop Time Status Last Admin Pharmacy Profile Note 0 ml @ 0 mls/hr UNSCH OTHER 12/06/17 22:30 Sodium Chloride 1,000 ml @ 125 mls/hr Q8H IV 12/06/17 22:22 12/09/17 05:42 (NS Flush) 2 ml UNSCH PRN IV FLUSH 12/06/17 22:30 (NS Flush) 2 ml BID IV FLUSH 12/07/17 09:00 12/09/17 09:23 (Tylenol) 650 mg Q4H PRN PO 12/06/17 22:30 12/07/17 07:51 (Zofran Odt) 4 mg Q6H PRN PO 12/06/17 22:30 (Narcan Inj) 0.4 mg UNSCH PRN IV PUSH 12/06/17 22:30 (Pearl-Colace) 1 tab BID PO 12/07/17 09:00 12/09/17 09:23 (Milk Of Magnesia Liq) 30 ml Q12H PRN PO 12/06/17 22:30 (Senokot) 17.2 mg Q12H PRN PO 12/06/17 22:30 (Dulcolax Supp) 10 mg DAILY PRN RECTAL 12/06/17 22:30 (Lactulose Liq) 30 ml DAILY PRN PO 12/06/17 22:30 ([facility] Ordered Lab Info) SPECIFIC LAB TO BE DRAWN: VANCO TROUGH DATE TO BE DRForeign.. ONCE ONCE .XX 12/09/17 20:45 12/09/17 20:46 (Lidoderm 5% Patch.12 Hr) 1 patch DAILY T-DERMAL 12/07/17 10:15 12/09/17 09:32 (Lovenox Inj) 30 mg DAILY SQ 12/07/17 11:00 12/09/17 09:22 Miscellaneous Information 1 Q12HR T-DERMAL 12/07/17 21:00 12/09/17 09:00 Vancomycin HCl 1250 mg/Sodium Chloride 262.5 ml @ 250 mls/hr Q24H IV 12/07/17 21:00 12/08/17 21:32 Cefepime HCl 2000 mg/Sodium Chloride 100 ml @ 200 mls/hr Q12H IV 12/07/17 18:00 12/08/17 21:33 (Dilaudid Pf Inj) 1 mg Q4H PRN IV 12/07/17 20:30 12/07/17 20:31 Phenylephrine HCl 40 mg/Dextrose 500 ml @ 30 mls/hr TITRATE PRN IV 12/08/17 02:30 12/08/17 01:45 (Brethine Inj) 1 mg UNSCH PRN SQ 12/08/17 02:30 Propofol 100 ml @ 24 mls/hr TITRATE PRN IV 12/08/17 02:45 12/09/17 05:41 (Neurontin Liq) 300 mg TID NG 12/08/17 13:00 12/09/17 09:21 (Zanaflex) 4 mg Q12HR PO 12/08/17 10:30 12/09/17 09:31 (Roxicodone Intensol Liq) 20 mg Q4HR PO 12/08/17 12:00 12/09/17 09:22 Lines Line with no evidence of infection Past Medical History Hypertension: Untreated. IV drug abuser Skin abscesses related to IVDU S/P Rx MV IE Past Surgical History Bilateral wrist abscess incision and drainage/washout Allergies: Coded Allergies: No Known Allergies (Unverified , 12/06/17) Objective . Vital Signs Date Time Temp Pulse Resp B/P (MAP) Pulse Ox O2 Delivery O2 Flow Rate FiO2 12/11/17 16:21 68 116/66 12/11/17 16:00 98.8 73 22 115/62 (79) 97 12/11/17 16:00 40 12/11/17 16:00 68 12/11/17 14:00 80 12/11/17 12:00 99.4 64 22 116/72 (87) 98 12/11/17 12:00 64 12/11/17 12:00 40 12/11/17 11:32 99 40 12/11/17 11:14 69 117/62 12/11/17 10:00 69 12/11/17 08:34 99 40 12/11/17 08:15 75 121/63 12/11/17 08:00 99.1 78 20 134/74 (94) 97 12/11/17 08:00 71 12/11/17 08:00 40 12/11/17 07:00 98 Mechanical Ventilator 40 12/11/17 06:00 88 12/11/17 05:30 92 149/81 12/11/17 04:29 95 40 12/11/17 04:00 99.0 91 27 144/79 (100) 94 12/11/17 04:00 91 12/11/17 02:58 92 132/67 6/22/18 02:00 84 12/11/17 00:49 99 40 12/11/17 00:00 118 12/11/17 00:00 40 12/11/17 00:00 98.6 118 26 178/99 (125) 95 12/10/17 23:40 122 173/99 12/10/17 23:00 100 160/84 12/10/17 22:00 80 12/10/17 20:15 116 197/119 12/10/17 20:00 40 12/10/17 20:00 98.0 104 24 175/100 (125) 100 12/10/17 20:00 98 12/10/17 19:44 100 40 12/10/17 19:00 100 Mechanical Ventilator 40 12/10/17 18:00 74 12/10/17 17:01 100 40 . Laboratory Tests Test 12/10/17 04:15 12/11/17 04:55 White Blood Count 11.5 TH/MM3 18.7 TH/MM3 Red Blood Count 3.07 MIL/MM3 3.05 MIL/MM3 Hemoglobin 8.0 GM/DL 8.0 GM/DL Hematocrit 24.7 % 24.9 % Mean Corpuscular Volume 80.6 FL 81.8 FL Mean Corpuscular Hemoglobin 26.0 PG 26.1 PG Mean Corpuscular Hemoglobin Concent 32.3 % 32.0 % Red Cell Distribution Width 17.5 % 17.0 % Platelet Count 113 TH/MM3 119 TH/MM3 Mean Platelet Volume 8.3 FL 8.1 FL Laboratory Tests Test 12/10/17 04:15 12/11/17 04:55 Blood Urea Nitrogen 72 MG/DL 57 MG/DL Creatinine 2.33 MG/DL 1.71 MG/DL Random Glucose 95 MG/DL 139 MG/DL Total Protein 5.8 GM/DL 6.7 GM/DL Albumin 1.2 GM/DL 1.3 GM/DL Calcium Level 7.5 MG/DL 7.6 MG/DL Alkaline Phosphatase 110 U/L 125 U/L Aspartate Amino Transf (AST/SGOT) 21 U/L 20 U/L Alanine Aminotransferase (ALT/SGPT) 15 U/L 13 U/L Total Bilirubin 0.6 MG/DL 0.5 MG/DL Sodium Level 148 MEQ/L 153 MEQ/L Potassium Level 3.7 MEQ/L 4.2 MEQ/L Chloride Level 117 MEQ/L 121 MEQ/L Carbon Dioxide Level 18.9 MEQ/L 23.1 MEQ/L Anion Gap 12 MEQ/L 9 MEQ/L Estimat Glomerular Filtration Rate 30 ML/MIN 43 ML/MIN Microbiology Date/Time Source Procedure Growth Status 12/11/17 04:35 Blood Peripheral Aerobic Blood Culture Pending Received 12/11/17 04:35 Blood Peripheral Anaerobic Blood Culture Pending Received 12/10/17 06:16 Blood Peripheral Aerobic Blood Culture - Preliminary Gram Positive Cocci Resulted 12/10/17 06:16 Blood Peripheral Anaerobic Blood Culture - Preliminary NO GROWTH IN 1 DAY Resulted 12/09/17 12:25 Blood Peripheral Aerobic Blood Culture - Final S. Aureus Mrsa Resulted 12/09/17 12:25 Blood Peripheral Anaerobic Blood Culture - Preliminary NO GROWTH IN 2 DAYS Resulted Imaging Last Impressions Chest X-Ray 12/08/17 0000 Signed Impressions: CONCLUSION: Some air overlying the left pleura laterally suspicious for lower lobe pneumoth orax. Bilateral pleural effusions. ET tube in good position. Cervical Spine X-Ray 12/08/17 0000 Signed Impressions: CONCLUSION: Inter vertebral discs are in place Cervical Spine MRI 12/07/17 0000 Signed Impressions: CONCLUSION: 1. Suspected discitis involving the C6-C7 level and possibly the C5-C6 level. 2. Large anterior epidural abscess extending from the tip of the dens down to the T2 level this causes moderate to severe stenosis throughout the mid and low er cervical and upper thoracic spine. 3. Anterior prevertebral abscess seen to the left of midline extending from th e C5 through T1 levels. There is fairly extensive prevertebral soft tissue swel ling. Chest CT 12/06/172158 Signed Impressions: CONCLUSION: 1. There are numerous patchy infiltrates throughout the lungs left greater eliana n right. Some of the infiltrates are borderline cavitary particularly in the le ft upper lobe. Moderate-sized bilateral pleural effusions. The scattered pulmon gus disease is new since February 2017 Renal Ultrasound 12/06/17 0000 Signed Impressions: CONCLUSION: 1. Both kidneys are echogenic suggesting chronic medical renal disease. Small cyst lower pole right kidney Physical Exam GENERAL: Sedated on the vent, NAD SKIN: Cool and dry. Has embolic lesions in BUE and BLE. Edematous HEAD: Atraumatic. Normocephalic. No temporal wasting, or tenderness. EYES: [place] conjunctiva. No petechia or hemorrhage. Pupils equal, round and reactive to light. Extraocular movements full and intact. No scleral icterus. No injection or drainage. EARS, NOSE AND THROAT: Nose without bleeding or purulent nasal discharge. No sinus tenderness. Mucous membranes pink and moist. No oral lesions noted. NECK: Trachea midline. Supple and no meningeal signs. No swelling noted in neck CARDIOVASCULAR: Regular rate and rhythm. No murmurs, rubs or gallops heard RESPIRATORY: Clear to auscultation. Decreased breath sounds at bases ABDOMEN: Soft, not distended, no reaction to palpation. Bowel sounds present and normoactive. EXTREMITIES: No clubbing, cyanosis, or edema. No joint effusions. No calf tenderness. Has embolic lesions BLE and BUE. Has multiple wounds in LUE, with some slough and surrounding erythema. RUE - area of abscess with packing, surrounding redness NEUROLOGICAL: Opens eyes, did not follow commands for me PSYCHIATRIC: Unable to assess LINE: No evidence of infection Assessment & Plan Remarks IMPRESSION Sepsis present on admission MRSA sepsis Cervical epidural abscess Likely with endocarditis, clinically - echo negative RUE abscess Likely with endocarditis - has IVDU, likely septic lung emboli, has embolic lesions in BLE Renal insufficiency, due to infection, ?embolic RECOMMENDATION Continue Vanco IV (target 15-20) Add Teflaro IV q8hrs dosing (cannot use Genta IV as acute renal failure) Continue Cefepime IV Reviewed repeat MRI with Neurosurgery PA. to get back to me about surgical debridement plan. annetta [facility] above plan. Dissemination and worsening of infection despite antibiotics is concerning. 2D ECHO is negative. TIM may not be safe given cervical spine infection concern for stability and will not change the management. Source control needs to be achieved. annetta Carranza. Prognosis guarded. Consider palliative care to help guide goals of therapy as Trach and PEG seem imminent. Chart reviewed, MAR reviewed, annetta MDs. Critical thinking and decision making. to resume care on 12/15/2017. If any changes in the interim please call sooner. Cindy Michel MD Dec 11, 2017 16:57
--- NOTE | 2017-12-11 19:02 | HHI.CCPN ---
Subjective Remarks/Hospital Course Hospital Course: 47yM with prior IVDA and prior endocarditis who presented with right forearm abscess and severe sepsis. admitted under obs for additional work-up. complained of persistent and severe neck pain for which MRI c-spine was ordered and demonstrates large cervical epidural abscess and discitis. I was called to evaluate the patient. he is significantly weak in his upper and lower extremities and has severe back pain. I discussed the case with radiology, infectious disease, and neurosurgery. made NPO and plan for emergent cervical decompression and cage fusion. discussed with ID: will change zosyn to cefepime for [employer] penetrance. continue to follow up cultures and changed 2d echo to "urgent" from "routine" to rule out vegetations. patient is altered from severe sepsis and no additional history is obtainable. ROS is very limited, but + for arm/leg weakness, neck pain, back pain. subjective: 12/08: off vasopressors this AM. remains intubated. TTE being performed to eval for endocarditis. s/p cervical interbody cage fusion and diskectomy. 12/09: continues to fail SBT for somnolence and encephalopathy. today he is agitated, but not following commands. still with + blood cultures despite therapy. Cr rising, likely HUMAIRA secondary to ATN. patient clinically appears adequately hydrated with adequate uop. 12/10: Remains sedated, orally intubated on mechanical ventilation. 12/11: Remains sedated, orally intubated on mechanical ventilation. MRI spine shows persistent fluid collection involving C-spine, thoracic spine and lumbar spine which is not amenable to neurosurgical intervention per discussion with Dr. Brandon. Objective Vital Signs Date Time Temp Pulse Resp B/P (MAP) Pulse Ox O2 Delivery O2 Flow Rate FiO2 12/11/17 17:10 100 40 12/11/17 16:21 68 116/66 12/11/17 16:00 98.8 22 12/11/17 07:00 Mechanical Ventilator Intake and Output 12/11/17 12/11/17 12/12/17 08:00 16:00 00:00 Intake Total 2745 ml Output Total 4250 ml Balance -1505 ml Result Diagram: 12/11/17 0455 12/11/17 0455 Imaging Last 48 hours Impressions Thoracic Spine MRI 12/11/17 0000 Signed Impressions: CONCLUSION: 1. There is an anterior extra-axial fluid collection extending from the dens t o T2. This was present on the prior cervical spine and does not appear signific ant changed. This could be an anterior epidural or subdural abscess. 2. Increased signal throughout the epidural space throughout the thoracic spin e extending from the T2-T3 through the T11-T12 level concerning for abscess thr oughout this region. 3. Mild disc changes at the T3-T4 through T6-T7 levels as described above. Sig nificant stenosis from the disc changes is not seen. 4. Multiple pulmonary masses, areas of consolidation, and effusions. Lumbar Spine MRI 12/11/17 0000 Signed Impressions: CONCLUSION: 1. Abnormal signal seen throughout the epidural space. This concerning for inf ection. 2. More focal anterior epidural collections at the L4 and L5 and upper sacral regions concerning for abscess. 3. There is severe narrowing of the thecal sac beginning at the L1 level and e xtending into the sacrum. CSF is seen not seen around the nerve roots throughou t these levels. 4. Increased signal within the L5-S1 disc space anteriorly. The posterior dis c margin appears intact. This is nonspecific. Early infection cannot be ruled o ut. There is no bony destruction. Cervical Spine MRI 12/11/17 0000 Signed Impressions: CONCLUSION: 1. Status post placement of anterior cervical fusion plate at the C5-C7 levels . 2. Continued anterior fluid collection likely related to an epidural versus valles bdural collection. This extends from the tip of the dens to the T2 level. This looks similar to the prior exam. There is mild narrowing of the thecal sac thro ughout however there is CSF seen around the cord throughout. 3. Continued prevertebral fluid/inflammatory change. Chest X-Ray 12/10/17 0500 Signed Impressions: CONCLUSION: Stable single view the chest. ET tube and nasogastric both good position. Diffu se airspace disease and pleural effusions are unchanged Last Impressions Cervical Spine MRI 12/07/17 0000 Signed Impressions: CONCLUSION: 1. Suspected discitis involving the C6-C7 level and possibly the C5-C6 level. 2. Large anterior epidural abscess extending from the tip of the dens down to the T2 level this causes moderate to severe stenosis throughout the mid and low er cervical and upper thoracic spine. 3. Anterior prevertebral abscess seen to the left of midline extending from th e C5 through T1 levels. There is fairly extensive prevertebral soft tissue swel ling. Chest CT 12/06/172158 Signed Impressions: CONCLUSION: 1. There are numerous patchy infiltrates throughout the lungs left greater eliana n right. Some of the infiltrates are borderline cavitary particularly in the le ft upper lobe. Moderate-sized bilateral pleural effusions. The scattered pulmon gus disease is new since February 2017 Chest X-Ray 12/06/17 1959 Signed Impressions: CONCLUSION: Interval development of bilateral effusions and patchy airspace disease since A pril 2017. Renal Ultrasound 12/06/17 0000 Signed Impressions: CONCLUSION: 1. Both kidneys are echogenic suggesting chronic medical renal disease. Small cyst lower pole right kidney Objective Remarks GENERAL: Middle-age male who appears much older than stated age, lying in bed, intubated, sedated HEENT: Normocephalic. Atraumatic. Pupils equal, round, reactive, conjugate. Mucous membranes are moist NECK: Trachea is midline. There is no JVD. neck incision c/d/i with ARELIS drain with minimal sanguinous output. CHEST: Equal chest rise. PRVC. full support. left chest tube to suction. CARDIOVASCULAR: Normal rate, regular rhythm. Sinus by telemetry. ABDOMEN: Soft, nontender, nondistended. No guarding. MUSCULOSKELETAL: Pulses 2+. No peripheral edema. NEUROLOGICAL: RASS -2. moves all extremities, weak, particularly LUE. SKIN: Multiple abrasions and abscesses in various stages of healing, the largest is on the right forearm which is approximately 3 cm x 2 cm and has recently been incised and drained with packing still in the wound. Track mcclain present. A/P Assessment and Plan Assessment: 47-year-old male with history of IV drug abuse and prior endocarditis presents with severe sepsis and large cervical epidural abscess with evidence of new and worsening acute upper and lower extremity myelopathy. Now s/p cervical decompression and cage fusion. remains critically ill. continue antibiotics and wean mechanical ventilation as tolerated. unsafe to extubate until mental status improves. Plan by systems: Neurologic: Cervical epidural abscess and discitis s/p cervical decompression, cage fusion 12/07 IV opiate abuse IV amphetamine abuse Acute metabolic encephalopathy secondary to severe sepsis Acute post-operative pain Frequent neurochecks Neurosurgery: Dr. Chu gabapentin 300mg po q8h tizanidine 4mg po q12h for pain oxycodone scheduled for post-op pain continue propofol for goal RASS -2. daily sedation vacation. added precedex. MRI spine done on 12/11 shows persistent abscess along the cervical/thoracic and lumbar spine. This was discussed with ID and Dr. Brandon. Dr. Brandon does not feel patient is a surgical candidate due to extent of abscess formation and recommend palliative care consult as prognosis is extremely poor. Respiratory: Acute hypoxic and hypercarbic respiratory failure likely significant component of neuromuscular weakness from cervical epidural abscess prior to surgery: FVC 700mL, NIF -20. daily SBTs wean fio2 for goal spo2 > 90% vent bundle hob elevated nebs Cardiovascular: Severe sepsis Maintenance IV fluids 1L NS bolus today. Renal: Acute kidney injury Secondary to sepsis and bacteremia continue beaver continue mivf daily bmp send urine electrolytes, eos. -- Strict I/Os FEN/GI: Acute intravascular volume depletion- resolving. Acute protein calorie malnutrition: Severe NGT tube feeds ICU electrolyte protocol Daily BMP Maintenance IV fluids bowel regimen Heme/ID: Severe sepsis Gram-positive bacteremia: MRSA Cervical epidural abscess/discitis History of endocarditis 2d echo: negative for vegetations. TIM will not change medical management at this time. Vancomycin with pharmacy dosing cefepime IV ID added Teflaro IV on 12/11 due to worsening MRI. ID consult: Dr. Szymanski following Endocrine: -- SSI if required for hyperglycemia Prophylaxis: GI Prophylaxis Pepcid DVT Prophylaxis -- SCDs Holding pharmacologic DVT prophylaxis in the setting of neurosurgery Lines: Peripheral IVs. Dispo: remain in ICU. Very critically ill and worsening acute myelopathy. unable to separate from mechanical ventilation at this time. Discussed with ID and discussed with neurosurgery Dr. Brandon. Dr. Brandon does not feel patient is a candidate for neurosurgical intervention due to extent of his abscess formation involving almost entire length of spine. He recommends consulting palliative care. Will consult palliative care service to assist with deciding goals of therapy. Prognosis appears poor. This patient remains critically ill with one or more organ systems which are or may become a threat to life. I have spent in excess of 30 minutes discontinuously in the care and management of this patient. This time is exclusive of procedures, and includes, but is not limited to, evaluation of the patient, review of the medical record, discussions with family, consultants, nursing staff, or respiratory therapy, and documentation in the medical record. Pieter Michel MD Dec 11, 2017 19:02
[2017-12-11] MEDS: REMOVE OLD LIDOCAINE PATCH T-DERMAL SCH (21:00)
[2017-12-12] VITALS (23 sets, daily range): BP systolic 138–171; BP diastolic 41–94; PULSE 60–131; RESP 22–25; TEMP 97.7–101; O2SAT 92–100
[2017-12-12] MEDS: oxyCODONE HCL ORAL CONC 5 MG/0.25 ML SYRINGE PO SCH ×7 (00:04→19:59)
[2017-12-12] MEDS: SODIUM CHLORIDE 0.9% FLUSH 10 ML FLUSH IV FLUSH SCH ×3 (00:05→20:00)
[2017-12-12] MEDS: DOCUSATE SODIUM 50 MG/SENNA 8.6 MG TAB PO SCH ×3 (00:05→19:59)
[2017-12-12] MEDS: SODIUM CHLOR 0.9% 1000 ML INJ 1,000 ML IV SCH ×4 (00:06→20:01)
[2017-12-12] MEDS: CEFTAROLINE INJ 600 MG in SODIUM CHLORIDE 0.9% INJ 100 ML IV SCH ×3 (00:07→16:01)
[2017-12-12] MEDS: PROPOFOL 1000 MG/100 ML IV PRN ×4 (03:07→19:59)
[2017-12-12] MEDS: LABETALOL HCL 100 MG/20 ML VIAL IV PUSH PRN ×2 (03:08→09:39)
[2017-12-12 05:58] LABS: HEMATOCRIT 22.5 % (39.0-51.0); HEMOGLOBIN 7.3 GM/DL (13.0-17.0); MEAN CELL VOLUME 82.1 FL (80.0-100.0); MEAN CORPUSCULAR HEMOGLOBIN 26.5 PG (27.0-34.0); MEAN CORPUSCULAR HGB CONC 32.3 % (32.0-36.0); MEAN PLATELET VOLUME 8.4 FL (7.0-11.0); PLATELET COUNT 111 TH/MM3 (150-450); RED BLOOD COUNT 2.74 MIL/MM3 (4.50-5.90); RED CELL DISTRIBUTION WIDTH 17.2 % (11.6-17.2); WHITE BLOOD COUNT 18.9 TH/MM3 (4.0-11.0)
[2017-12-12 06:15] LABS: INTERNATIONAL NORMALIZED RATIO 1.2 RATIO; PROTHROMBIN TIME - PATIENT 11.7 SEC (9.8-11.6)
[2017-12-12] MEDS: CEFEPIME INJ 2,000 MG in SODIUM CHLORIDE 0.9% INJ 100 ML IV SCH ×2 (06:24→17:25)
[2017-12-12 06:28] LABS: ALBUMIN 1.2 GM/DL (3.4-5.0); AST (GOT) 21 U/L (15-37); BICARBONATE 21.4 MEQ/L (21.0-32.0); BLOOD UREA NITROGEN 48 MG/DL (7-18); CALCIUM 7.9 MG/DL (8.5-10.1); CHLORIDE 121 MEQ/L (98-107); CREATININE 1.48 MG/DL (0.60-1.30); GLOMERULAR FILTRATION RATE 51 ML/MIN (>89); GLUCOSE,RANDOM 121 MG/DL (74-106); SODIUM (NA) 153 MEQ/L (136-145)
[2017-12-12 06:29] LABS: ALT (GPT) 14 U/L (12-78)
[2017-12-12 06:31] LABS: ALKALINE PHOSPHATASE 110 U/L (45-117); TOTAL BILIRUBIN ADULT 0.5 MG/DL (0.2-1.0); TOTAL PROTEIN 6.9 GM/DL (6.4-8.2)
[2017-12-12] MEDS: HYDROmorphone HCL PF 2 MG/ML VIAL IV PRN (07:47)
[2017-12-12] MEDS: REMOVE OLD LIDOCAINE PATCH T-DERMAL SCH ×2 (09:00→20:00)
--- NOTE | 2017-12-12 09:31 | HHI.CCPN ---
Subjective Remarks/Hospital Course Hospital Course: 47yM with prior IVDA and prior endocarditis who presented with right forearm abscess and severe sepsis. admitted under obs for additional work-up. complained of persistent and severe neck pain for which MRI c-spine was ordered and demonstrates large cervical epidural abscess and discitis. I was called to evaluate the patient. he is significantly weak in his upper and lower extremities and has severe back pain. I discussed the case with radiology, infectious disease, and neurosurgery. made NPO and plan for emergent cervical decompression and cage fusion. discussed with ID: will change zosyn to cefepime for [facility] penetrance. continue to follow up cultures and changed 2d echo to "urgent" from "routine" to rule out vegetations. patient is altered from severe sepsis and no additional history is obtainable. ROS is very limited, but + for arm/leg weakness, neck pain, back pain. subjective: 12/08: off vasopressors this AM. remains intubated. TTE being performed to eval for endocarditis. s/p cervical interbody cage fusion and diskectomy. 12/09: continues to fail SBT for somnolence and encephalopathy. today he is agitated, but not following commands. still with + blood cultures despite therapy. Cr rising, likely HUMAIRA secondary to ATN. patient clinically appears adequately hydrated with adequate uop. 12/10: Remains sedated, orally intubated on mechanical ventilation. 12/11: Remains sedated, orally intubated on mechanical ventilation. MRI spine shows persistent fluid collection involving C-spine, thoracic spine and lumbar spine which is not amenable to neurosurgical intervention per discussion with Dr. Brandon. 12/12: Remains sedated, orally intubated on mechanical ventilation. Febrile. Starting fentanyl drip as patient appears uncomfortable. Objective Vital Signs Date Time Temp Pulse Resp B/P (MAP) Pulse Ox O2 Delivery O2 Flow Rate FiO2 12/12/17 08:32 92 40 12/12/17 08:21 24 12/12/17 06:00 87 12/12/17 04:00 98.5 148/81 (103) 12/11/17 19:00 Mechanical Ventilator Intake and Output 12/12/17 12/12/17 12/13/17 08:00 16:00 00:00 Intake Total 900 ml Output Total 1200 ml Balance -300 ml Result Diagram: 12/12/17 0540 12/12/17 0540 Imaging Last 48 hours Impressions Thoracic Spine MRI 12/11/17 0000 Signed Impressions: CONCLUSION: 1. There is an anterior extra-axial fluid collection extending from the dens t o T2. This was present on the prior cervical spine and does not appear signific ant changed. This could be an anterior epidural or subdural abscess. 2. Increased signal throughout the epidural space throughout the thoracic spin e extending from the T2-T3 through the T11-T12 level concerning for abscess thr oughout this region. 3. Mild disc changes at the T3-T4 through T6-T7 levels as described above. Sig nificant stenosis from the disc changes is not seen. 4. Multiple pulmonary masses, areas of consolidation, and effusions. Lumbar Spine MRI 12/11/17 0000 Signed Impressions: CONCLUSION: 1. Abnormal signal seen throughout the epidural space. This concerning for inf ection. 2. More focal anterior epidural collections at the L4 and L5 and upper sacral regions concerning for abscess. 3. There is severe narrowing of the thecal sac beginning at the L1 level and e xtending into the sacrum. CSF is seen not seen around the nerve roots throughou t these levels. 4. Increased signal within the L5-S1 disc space anteriorly. The posterior dis c margin appears intact. This is nonspecific. Early infection cannot be ruled o ut. There is no bony destruction. Cervical Spine MRI 12/11/17 0000 Signed Impressions: CONCLUSION: 1. Status post placement of anterior cervical fusion plate at the C5-C7 levels . 2. Continued anterior fluid collection likely related to an epidural versus valles bdural collection. This extends from the tip of the dens to the T2 level. This looks similar to the prior exam. There is mild narrowing of the thecal sac thro ughout however there is CSF seen around the cord throughout. 3. Continued prevertebral fluid/inflammatory change. Chest X-Ray 12/10/17 0500 Signed Impressions: CONCLUSION: Stable single view the chest. ET tube and nasogastric both good position. Diffu se airspace disease and pleural effusions are unchanged Last Impressions Cervical Spine MRI 12/07/17 0000 Signed Impressions: CONCLUSION: 1. Suspected discitis involving the C6-C7 level and possibly the C5-C6 level. 2. Large anterior epidural abscess extending from the tip of the dens down to the T2 level this causes moderate to severe stenosis throughout the mid and low er cervical and upper thoracic spine. 3. Anterior prevertebral abscess seen to the left of midline extending from th e C5 through T1 levels. There is fairly extensive prevertebral soft tissue swel ling. Chest CT 12/06/172158 Signed Impressions: CONCLUSION: 1. There are numerous patchy infiltrates throughout the lungs left greater eliana n right. Some of the infiltrates are borderline cavitary particularly in the le ft upper lobe. Moderate-sized bilateral pleural effusions. The scattered pulmon gus disease is new since February 2017 Chest X-Ray 12/06/171958 Signed Impressions: CONCLUSION: Interval development of bilateral effusions and patchy airspace disease since A pril 2017. Renal Ultrasound 12/06/17 0000 Signed Impressions: CONCLUSION: 1. Both kidneys are echogenic suggesting chronic medical renal disease. Small cyst lower pole right kidney Objective Remarks GENERAL: Middle-age male who appears much older than stated age, lying in bed, intubated, sedated HEENT: Normocephalic. Atraumatic. Pupils equal, round, reactive, conjugate. Mucous membranes are moist NECK: Trachea is midline. There is no JVD. neck incision c/d/i with ARELIS drain with minimal sanguinous output. CHEST: Equal chest rise. PRVC. full support. left chest tube to suction. CARDIOVASCULAR: Normal rate, regular rhythm. Sinus by telemetry. ABDOMEN: Soft, nontender, nondistended. No guarding. MUSCULOSKELETAL: Pulses 2+. No peripheral edema. NEUROLOGICAL: RASS -2. moves all extremities, weak, particularly LUE. SKIN: Multiple abrasions and abscesses in various stages of healing, the largest is on the right forearm which is approximately 3 cm x 2 cm and has recently been incised and drained with packing still in the wound. Track mcclain present. A/P Assessment and Plan Assessment: 47-year-old male with history of IV drug abuse and prior endocarditis presents with severe sepsis and large cervical epidural abscess with evidence of new and worsening acute upper and lower extremity myelopathy. Now s/p cervical decompression and cage fusion. remains critically ill. continue antibiotics and wean mechanical ventilation as tolerated. unsafe to extubate until mental status improves. Plan by systems: Neurologic: Cervical epidural abscess and discitis s/p cervical decompression, cage fusion 12/07 IV opiate abuse IV amphetamine abuse Acute metabolic encephalopathy secondary to severe sepsis Acute post-operative pain Frequent neurochecks Neurosurgery: Dr. Chu gabapentin 300mg po q8h tizanidine 4mg po q12h for pain oxycodone scheduled for post-op pain continue propofol for goal RASS -2. Start fentanyl GTT on 12/12 for discomfort daily sedation vacation. added precedex. MRI spine done on 12/11 shows persistent abscess along the cervical/thoracic and lumbar spine. This was discussed with ID and Dr. Brandon. Dr. Brandon does not feel patient is a surgical candidate due to extent of abscess formation and recommend palliative care consult as prognosis is extremely poor. Respiratory: Acute hypoxic and hypercarbic respiratory failure likely significant component of neuromuscular weakness from cervical epidural abscess prior to surgery: FVC 700mL, NIF -20. daily SBTs wean fio2 for goal spo2 > 90% vent bundle hob elevated nebs Cardiovascular: Severe sepsis Maintenance IV fluids 1L NS bolus today. Renal: Acute kidney injury Secondary to sepsis and bacteremia continue beaver continue mivf daily bmp send urine electrolytes, eos. -- Strict I/Os FEN/GI: Acute intravascular volume depletion- resolving. Acute protein calorie malnutrition: Severe NGT tube feeds ICU electrolyte protocol Daily BMP Maintenance IV fluids bowel regimen Heme/ID: Severe sepsis Gram-positive bacteremia: MRSA Cervical epidural abscess/discitis History of endocarditis 2d echo: negative for vegetations. TIM will not change medical management at this time. Vancomycin with pharmacy dosing cefepime IV ID added Teflaro IV on 12/11 due to worsening MRI. ID consult: Dr. Szymanski following Endocrine: -- SSI if required for hyperglycemia Prophylaxis: GI Prophylaxis Pepcid DVT Prophylaxis -- SCDs Holding pharmacologic DVT prophylaxis in the setting of neurosurgery Lines: Peripheral IVs. Dispo: remain in ICU. Very critically ill and worsening acute myelopathy. unable to separate from mechanical ventilation at this time. Discussed with ID and discussed with neurosurgery Dr. Brandon. Dr. Brandon does not feel patient is a candidate for neurosurgical intervention due to extent of his abscess formation involving almost entire length of spine. He recommends consulting palliative care. Will consult palliative care service to assist with deciding goals of therapy. Prognosis appears poor. This patient remains critically ill with one or more organ systems which are or may become a threat to life. I have spent in excess of 30 minutes discontinuously in the care and management of this patient. This time is exclusive of procedures, and includes, but is not limited to, evaluation of the patient, review of the medical record, discussions with family, consultants, nursing staff, or respiratory therapy, and documentation in the medical record. Pieter Michel MD Dec 12, 2017 09:31
[2017-12-12] MEDS: LIDOCAINE HCL 5% PATCH T-DERMAL SCH (09:38)
[2017-12-12] MEDS: ENOXAPARIN SODIUM 30 MG/0.3 ML SYRINGE SQ SCH (09:39)
[2017-12-12] MEDS: niCARdipine 25 MG/NS 250 ML Vial2Bag or IV room IV PRN ×6 (09:40→14:03)
[2017-12-12] MEDS: GABAPENTIN 250 MG/5 ML UDC NG SCH ×3 (09:40→17:25)
[2017-12-12] MEDS: CHLORHEXIDINE 0.12% (ORAL KIT) 15 ML CUP OROPHARYNG SCH ×2 (09:41→20:00)
[2017-12-12] MEDS ORDERED: ADENOSINE IV SOLN 3 MG/ML 2 ML VIAL IV PUSH STA (09:56)
[2017-12-12] MEDS ORDERED: AMIODARONE INJ 150 MG in DEXTROSE 5% IN WATER 100ML INJ 100 ML IV ONE ×2 (09:58)
[2017-12-12] MEDS ORDERED: METOPROLOL TARTRATE 5 MG/5 ML VIAL ONE (10:11)
[2017-12-12] MEDS ORDERED: DIGOXIN 0.5 MG/2 ML VIAL IV PUSH STA (10:22)
[2017-12-12] MEDS: fentaNYL DRIP 250 ML IV PRN ×2 (10:22→19:59)
[2017-12-12] MEDS: METOPROLOL TARTRATE 5 MG/5 ML VIAL IV PUSH SCH ×2 (11:00→16:46)
--- NOTE | 2017-12-12 12:35 | HHI.NSPN ---
(Uma Rene) Note Status Status: Progress Note (Uma Rene) Interval History Interval History 47-year-old male with epidural abscess, discitis, osteomyelitis status post C5- 6 and C6-7 anterior cervical discectomy, evacuation of cervical epidural and intradural abscess, C5-6 and C6-7 anterior interbody fusion, allograft bone, anterior cervical instrumentation 12/11: Intubated, sedated. Cervical collar in place. 12/12: remains intubated, sedates. Repeat MRI of spine yesterday reviewed by Dr. Brandon. (Uma Rene) Labs, Micro, & Vital Signs Results Date Time Temp Pulse Resp B/P (MAP) Pulse Ox O2 Delivery O2 Flow Rate FiO2 12/12/17 12:14 131 12/12/17 12:00 70 12/12/17 12:00 99.7 130 22 148/92 (110) 97 12/12/17 11:22 95 70 12/12/17 10:15 150 12/12/17 10:00 107 12/12/17 09:40 150 167/105 12/12/17 08:32 92 40 12/12/17 08:21 24 12/12/17 08:00 40 12/12/17 08:00 101.0 96 23 171/91 (117) 96 12/12/17 08:00 99.7 96 23 171/41 (84) 96 12/12/17 08:00 95 12/12/17 07:00 92 Mechanical Ventilator 40 12/12/17 06:00 87 12/12/17 04:06 99 40 12/12/17 04:00 40 12/12/17 04:00 98.5 79 22 148/81 (103) 98 12/12/17 04:00 80 12/12/17 02:00 81 12/12/17 01:31 100 40 12/12/17 01:08 22 12/12/17 00:00 97.7 75 22 138/84 (102) 98 12/12/17 00:00 40 12/12/17 00:00 81 12/11/17 22:00 70 12/11/17 20:10 100 40 12/11/17 20:00 62 12/11/17 20:00 98.1 65 22 117/67 (84) 100 12/11/17 20:00 40 12/11/17 19:00 100 Mechanical Ventilator 40 12/11/17 18:00 68 12/11/17 17:10 100 40 12/11/17 16:21 68 116/66 12/11/17 16:00 98.8 73 22 115/62 (79) 97 12/11/17 16:00 40 12/11/17 16:00 68 12/11/17 14:00 80 12/13/17 07:00 Output Total 1600 ml Balance -1600 ml Constitutional Vital Signs Date Time Temp Pulse Resp B/P (MAP) Pulse Ox O2 Delivery O2 Flow Rate FiO2 12/12/17 12:14 131 12/12/17 12:00 70 12/12/17 12:00 99.7 130 22 148/92 (110) 97 12/12/17 11:22 95 70 12/12/17 10:15 150 12/12/17 10:00 107 12/12/17 09:40 150 167/105 12/12/17 08:32 92 40 12/12/17 08:21 24 12/12/17 08:00 40 12/12/17 08:00 101.0 96 23 171/91 (117) 96 12/12/17 08:00 99.7 96 23 171/41 (84) 96 12/12/17 08:00 95 12/12/17 07:00 92 Mechanical Ventilator 40 12/12/17 06:00 87 12/12/17 04:06 99 40 12/12/17 04:00 40 12/12/17 04:00 98.5 79 22 148/81 (103) 98 12/12/17 04:00 80 12/12/17 02:00 81 12/12/17 01:31 100 40 12/12/17 01:08 22 12/12/17 00:00 97.7 75 22 138/84 (102) 98 12/12/17 00:00 40 12/12/17 00:00 81 12/11/17 22:00 70 12/11/17 20:10 100 40 12/11/17 20:00 62 12/11/17 20:00 98.1 65 22 117/67 (84) 100 12/11/17 20:00 40 12/11/17 19:00 100 Mechanical Ventilator 40 12/11/17 18:00 68 12/11/17 17:10 100 40 12/11/17 16:21 68 116/66 12/11/17 16:00 98.8 73 22 115/62 (79) 97 12/11/17 16:00 40 12/11/17 16:00 68 12/11/17 14:00 80 12/13/17 07:00 Output Total 1600 ml Balance -1600 ml (Uma Rene) Review of Systems ROS Limitations: Clinical Condition, Intubated (Uma Rene) Physical Exam Mr Duncan remains intubated and well sedated. No obvious distress. No response to pain Cervical wound with OptiForm dressing intact in his neck Cervical collar immobilized by a Cataño collar Musculoskeletal: No obvious deformities to extremities, sedated and not following commands to motor testing Neuro: Sedated, pupils equal, facial motor appears symmetric at rest. Plantars silent response bilaterally Heart regular rate rhythm Lungs clear (Uma Rene) Medications Current Medications Current Medications Medications (Trade) Dose Ordered Sig/Brennon Route PRN Reason Start Time Stop Time Status Last Admin Dose Admin Pharmacy Profile Note 0 ml @ 0 mls/hr UNSCH OTHER 12/06/17 22:30 Sodium Chloride 1,000 ml @ 125 mls/hr Q8H IV 12/06/17 22:22 12/12/17 06:25 Sodium Chloride (NS Flush) 2 ml UNSCH PRN IV FLUSH FLUSH AFTER USING IV ACCESS 12/06/17 22:30 Sodium Chloride (NS Flush) 2 ml BID IV FLUSH 12/07/17 09:00 12/12/17 09:41 Acetaminophen (Tylenol) 650 mg Q4H PRN PO TEMP > 100.4 12/06/17 22:30 12/07/17 07:51 Ondansetron HCl (Zofran Odt) 4 mg Q6H PRN PO NAUSEA/VOMITING 12/06/17 22:30 Naloxone HCl (Narcan Inj) 0.4 mg UNSCH PRN IV PUSH SEE LABEL COMMENTS 12/06/17 22:30 Senna/Docusate Sodium (Pearl-Colace) 1 tab BID PO 12/07/17 09:00 12/12/17 09:39 Magnesium Hydroxide (Milk Of Magnesia Liq) 30 ml Q12H PRN PO Mild constipation 12/06/17 22:30 Sennosides (Senokot) 17.2 mg Q12H PRN PO Moderate constipation 12/06/17 22:30 Bisacodyl (Dulcolax Supp) 10 mg DAILY PRN RECTAL SEVERE CONSITIPATION 12/06/17 22:30 Lactulose (Lactulose Liq) 30 ml DAILY PRN PO SEVERE CONSITIPATION 12/06/17 22:30 Lidocaine HCl (Lidoderm 5% Patch.12 Hr) 1 patch DAILY T-DERMAL 12/07/17 10:15 12/12/17 09:38 Enoxaparin Sodium (Lovenox Inj) 30 mg DAILY SQ 12/07/17 11:00 12/12/17 09:39 Miscellaneous Information 1 Q12HR T-DERMAL 12/07/17 21:00 12/12/17 09:00 Cefepime HCl 2000 mg/Sodium Chloride 100 ml @ 200 mls/hr Q12H IV 12/07/17 18:00 12/12/17 06:24 Hydromorphone HCl (Dilaudid Pf Inj) 1 mg Q4H PRN IV PAIN SCALE 1 TO 10 12/07/17 20:30 12/12/17 07:47 Phenylephrine HCl 40 mg/Dextrose 500 ml @ 30 mls/hr TITRATE PRN IV Blood Pressure Management 12/08/17 02:30 12/08/17 01:45 Terbutaline Sulfate (Brethine Inj) 1 mg UNSCH PRN SQ FOR EXTRAVASATION PROTOCOL 12/08/17 02:30 Propofol 100 ml @ 24 mls/hr TITRATE PRN IV SEDATION 12/08/17 02:45 12/12/17 03:07 Gabapentin (Neurontin Liq) 300 mg TID NG 12/08/17 13:00 12/12/17 09:40 Tizanidine HCl (Zanaflex) 4 mg Q12HR PO 12/08/17 10:30 12/12/17 09:39 Oxycodone HCl (Roxicodone Intensol Liq) 20 mg Q4HR PO 12/08/17 12:00 12/12/17 06:24 Nicardipine HCl 25 mg/Sodium Chloride 260 ml @ 52 mls/hr TITRATE PRN IV Blood Pressure Management 12/09/17 18:00 12/12/17 09:40 Chlorhexidine Gluconate (Peridex 0.12% Liq) 15 ml BID@0800,2000 OROPHARYNG 12/09/17 20:00 12/12/17 09:41 Dexmedetomidine HCl 200 mcg/ Sodium Chloride 50 ml @ 4.28 mls/hr TITRATE PRN IV Desired RASS 12/09/17 19:00 12/11/17 16:15 Labetalol HCl (Trandate Inj) 10 mg Q4H PRN IV PUSH SYS BP GREATER THAN 140 MMHG 12/10/17 11:00 12/12/17 09:39 Vancomycin HCl 1000 mg/Sodium Chloride 250 ml @ 250 mls/hr Q48H IV 12/11/17 12:00 12/11/17 14:02 Miscellaneous Information ([facility] Ordered Lab Info) SPECIFIC LAB TO BE ... ONCE ONCE .XX 12/17/17 11:45 12/17/17 11:46 Ceftaroline Fosamil 600 mg/ Sodium Chloride 100 ml @ 100 mls/hr Q8H IV 12/11/17 15:00 12/12/17 07:46 Fentanyl Citrate 250 ml @ 5 mls/hr TITRATE PRN IV SEDATION 12/12/17 09:45 12/12/17 10:22 Amiodarone HCl 450 mg/Sodium Chloride 250 ml @ 33.33 mls/ hr Q7H31M PRN IV Per Protocol 12/12/17 10:08 Metoprolol Tartrate (Lopressor Inj) 5 mg Q6H IV PUSH 12/12/17 11:00 12/12/17 11:00 (Uma Rene) Medical Decision Making MDM Remarks 47-year-old male with epidural abscess, discitis, osteomyelitis status post C5- 6 and C6-7 anterior cervical discectomy, evacuation of cervical epidural and intradural abscess, C5-6 and C6-7 anterior interbody fusion, allograft bone, anterior cervical instrumentation by Dr. Chu 12/08/17 Last Impressions Thoracic Spine MRI 12/11/17 0000 Signed Impressions: CONCLUSION: 1. There is an anterior extra-axial fluid collection extending from the dens t o T2. This was present on the prior cervical spine and does not appear signific ant changed. This could be an anterior epidural or subdural abscess. 2. Increased signal throughout the epidural space throughout the thoracic spin e extending from the T2-T3 through the T11-T12 level concerning for abscess thr oughout this region. 3. Mild disc changes at the T3-T4 through T6-T7 levels as described above. Sig nificant stenosis from the disc changes is not seen. 4. Multiple pulmonary masses, areas of consolidation, and effusions. Lumbar Spine MRI 12/11/17 0000 Signed Impressions: CONCLUSION: 1. Abnormal signal seen throughout the epidural space. This concerning for inf ection. 2. More focal anterior epidural collections at the L4 and L5 and upper sacral regions concerning for abscess. 3. There is severe narrowing of the thecal sac beginning at the L1 level and e xtending into the sacrum. CSF is seen not seen around the nerve roots throughou t these levels. 4. Increased signal within the L5-S1 disc space anteriorly. The posterior dis c margin appears intact. This is nonspecific. Early infection cannot be ruled o ut. There is no bony destruction. Cervical Spine MRI 12/11/17 0000 Signed Impressions: CONCLUSION: 1. Status post placement of anterior cervical fusion plate at the C5-C7 levels . 2. Continued anterior fluid collection likely related to an epidural versus valles bdural collection. This extends from the tip of the dens to the T2 level. This looks similar to the prior exam. There is mild narrowing of the thecal sac thro ughout however there is CSF seen around the cord throughout. 3. Continued prevertebral fluid/inflammatory change. Chest X-Ray 12/10/17 0500 Signed Impressions: CONCLUSION: Stable single view the chest. ET tube and nasogastric both good position. Diffu se airspace disease and pleural effusions are unchanged Cervical Spine X-Ray 12/08/17 0000 Signed Impressions: CONCLUSION: Inter vertebral discs are in place Chest CT 12/06/17 2159 Signed Impressions: CONCLUSION: 1. There are numerous patchy infiltrates throughout the lungs left greater eliana n right. Some of the infiltrates are borderline cavitary particularly in the le ft upper lobe. Moderate-sized bilateral pleural effusions. The scattered pulmon gus disease is new since February 2017 Renal Ultrasound 12/06/17 0000 Signed Impressions: CONCLUSION: 1. Both kidneys are echogenic suggesting chronic medical renal disease. Small cyst lower pole right kidney (Uma Rene) Plan Plan Remarks repeat MRI of spine reviewed by Dr. Brandon, dw ID and CC, palliative care consulted Continue neuro checks, Continue IV antibiotics (Uma Rene) Attending Statement He has residual multifocal abscess. He is not a candidate for further surgery, as we are unable to reach the area of abscess. His prognosis is very poor. Likely due to endocarditis.. He is not a candidate for further surgery Continue IV antibiotics Discussed with infectious disease and battery checker The exam, history, and the medical decision-making described in the above note were completed with the assistance of the mid-level provider. I reviewed and agree with the findings presented. I attest that I had a [id number] encounter with the patient on the same day, and personally performed and documented my assessment and findings in the medical record. (David Brandon MD) Uma Rene Dec 12, 2017 12:35 David Brandon MD Dec 12, 2017 19:40
--- NOTE | 2017-12-12 17:40 | EKG ---
Date Performed: 12/12/2017 Time Performed: 11:19:46 PTAGE: 47 years EKG: Atrial fibrillation with rapid ventricular response. Right axis deviation Possible lateral infarct - age undetermined Inferior T wave changes are nonspecific Low QRS voltages in limb leads Abn ormal ECG Compared to PREVIOUS TRACING , signficant changes have occurred. Atrial fibrillation is new, low limb lead voltage is new, clinical correlation is needed. PREVIOUS TRACIN12/07/2017 11.17 DOCTOR: Humble Abad Interpretating Date/Time 12/12/2017 17:38:39
[2017-12-12] MEDS: AMIODARONE INJ 450 MG in SODIUM CHLOR 0.9% (EXCEL) INJ 241 ML IV PRN (18:30)
[2017-12-13] VITALS (18 sets, daily range): BP systolic 139–175; BP diastolic 76–93; PULSE 58–104; RESP 22–24; TEMP 97.8–99.8; O2SAT 97–100
[2017-12-13] MEDS: METOPROLOL TARTRATE 5 MG/5 ML VIAL IV PUSH SCH ×5 (00:54→20:45)
[2017-12-13] MEDS: PROPOFOL 1000 MG/100 ML IV PRN ×5 (00:55→20:49)
[2017-12-13] MEDS: CEFTAROLINE INJ 600 MG in SODIUM CHLORIDE 0.9% INJ 100 ML IV SCH ×4 (01:08→20:45)
[2017-12-13] MEDS: niCARdipine 25 MG/NS 250 ML Vial2Bag or IV room IV PRN ×6 (01:29→17:20)
[2017-12-13] MEDS: oxyCODONE HCL ORAL CONC 5 MG/0.25 ML SYRINGE PO SCH ×7 (04:00→23:58)
[2017-12-13 04:54] LABS: HEMATOCRIT 22.7 % (39.0-51.0); HEMOGLOBIN 7.2 GM/DL (13.0-17.0); MEAN CELL VOLUME 82.3 FL (80.0-100.0); MEAN CORPUSCULAR HEMOGLOBIN 26.2 PG (27.0-34.0); MEAN CORPUSCULAR HGB CONC 31.9 % (32.0-36.0); MEAN PLATELET VOLUME 8.7 FL (7.0-11.0); PLATELET COUNT 122 TH/MM3 (150-450); RED BLOOD COUNT 2.76 MIL/MM3 (4.50-5.90); RED CELL DISTRIBUTION WIDTH 17.2 % (11.6-17.2); WHITE BLOOD COUNT 17.9 TH/MM3 (4.0-11.0)
[2017-12-13 05:06] LABS: INTERNATIONAL NORMALIZED RATIO 1.1 RATIO; PROTHROMBIN TIME - PATIENT 11.5 SEC (9.8-11.6)
[2017-12-13 05:23] LABS: ALBUMIN 1.2 GM/DL (3.4-5.0); ALT (GPT) 11 U/L (12-78); AST (GOT) 19 U/L (15-37); BICARBONATE 22.9 MEQ/L (21.0-32.0); BLOOD UREA NITROGEN 45 MG/DL (7-18); CHLORIDE 123 MEQ/L (98-107); CREATININE 1.18 MG/DL (0.60-1.30); GLOMERULAR FILTRATION RATE 66 ML/MIN (>89); GLUCOSE,RANDOM 112 MG/DL (74-106); SODIUM (NA) 154 MEQ/L (136-145)
[2017-12-13 05:26] LABS: ALKALINE PHOSPHATASE 97 U/L (45-117); TOTAL BILIRUBIN ADULT 0.3 MG/DL (0.2-1.0); TOTAL PROTEIN 7.3 GM/DL (6.4-8.2)
[2017-12-13] MEDS: CEFEPIME INJ 2,000 MG in SODIUM CHLORIDE 0.9% INJ 100 ML IV SCH ×2 (05:45→17:19)
[2017-12-13] MEDS: SODIUM CHLOR 0.9% 1000 ML INJ 1,000 ML IV SCH (05:45)
[2017-12-13] MEDS: REMOVE OLD LIDOCAINE PATCH T-DERMAL SCH ×2 (09:00→20:44)
[2017-12-13] MEDS: MAGNESIUM HYDROXIDE SUSP 30 ML CUP PO PRN (09:03)
[2017-12-13] MEDS: DOCUSATE SODIUM 50 MG/SENNA 8.6 MG TAB PO SCH ×2 (09:04→20:43)
[2017-12-13] MEDS: ENOXAPARIN SODIUM 30 MG/0.3 ML SYRINGE SQ SCH (09:04)
[2017-12-13] MEDS: GABAPENTIN 250 MG/5 ML UDC NG SCH ×3 (09:04→17:20)
[2017-12-13] MEDS: LIDOCAINE HCL 5% PATCH T-DERMAL SCH (09:05)
[2017-12-13] MEDS: SODIUM CHLORIDE 0.9% FLUSH 10 ML FLUSH IV FLUSH SCH ×2 (09:06→20:43)
[2017-12-13] MEDS: CHLORHEXIDINE 0.12% (ORAL KIT) 15 ML CUP OROPHARYNG SCH ×2 (09:06→20:00)
[2017-12-13] MEDS: SODIUM CHLOR 0.45% 1000 ML INJ 1,000 ML IV SCH (10:30)
--- NOTE | 2017-12-13 10:33 | HHI.CCPN ---
Subjective Remarks/Hospital Course Hospital Course: 47yM with prior IVDA and prior endocarditis who presented with right forearm abscess and severe sepsis. admitted under obs for additional work-up. complained of persistent and severe neck pain for which MRI c-spine was ordered and demonstrates large cervical epidural abscess and discitis. I was called to evaluate the patient. he is significantly weak in his upper and lower extremities and has severe back pain. I discussed the case with radiology, infectious disease, and neurosurgery. made NPO and plan for emergent cervical decompression and cage fusion. 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 continue to follow up cultures and changed 2d echo to "urgent" from "routine" to rule out vegetations. patient is altered from severe sepsis and no additional history is obtainable. ROS is very limited, but + for arm/leg weakness, neck pain, back pain. subjective: 12/08: off vasopressors this AM. remains intubated. TTE being performed to eval for endocarditis. s/p cervical interbody cage fusion and diskectomy. 12/09: continues to fail SBT for somnolence and encephalopathy. today he is agitated, but not following commands. still with + blood cultures despite therapy. Cr rising, likely HUMAIRA secondary to ATN. patient clinically appears adequately hydrated with adequate uop. 12/10: Remains sedated, orally intubated on mechanical ventilation. 12/11: Remains sedated, orally intubated on mechanical ventilation. MRI spine shows persistent fluid collection involving C-spine, thoracic spine and lumbar spine which is not amenable to neurosurgical intervention per discussion with Dr. Brandon. 12/12: Remains sedated, orally intubated on mechanical ventilation. Febrile. Starting fentanyl drip as patient appears uncomfortable. 12/13: Sedated, orally intubated on mechanical ventilation. Converted to sinus rhythm from A. fib last night Objective Vital Signs Date Time Temp Pulse Resp B/P (MAP) Pulse Ox O2 Delivery O2 Flow Rate FiO2 12/13/17 09:06 97 55 12/13/17 08:00 99.8 94 24 175/93 (120) 12/12/17 20:35 Mechanical Ventilator Intake and Output 12/13/17 12/13/17 12/14/17 08:00 16:00 00:00 Intake Total 791 ml Output Total 1320 ml Balance -529 ml Result Diagram: 12/13/17 0444 12/13/17 0444 Imaging Last 48 hours Impressions Thoracic Spine MRI 12/11/17 0000 Signed Impressions: CONCLUSION: 1. There is an anterior extra-axial fluid collection extending from the dens t o T2. This was present on the prior cervical spine and does not appear signific ant changed. This could be an anterior epidural or subdural abscess. 2. Increased signal throughout the epidural space throughout the thoracic spin e extending from the T2-T3 through the T11-T12 level concerning for abscess thr oughout this region. 3. Mild disc changes at the T3-T4 through T6-T7 levels as described above. Sig nificant stenosis from the disc changes is not seen. 4. Multiple pulmonary masses, areas of consolidation, and effusions. Lumbar Spine MRI 12/11/17 0000 Signed Impressions: CONCLUSION: 1. Abnormal signal seen throughout the epidural space. This concerning for inf ection. 2. More focal anterior epidural collections at the L4 and L5 and upper sacral regions concerning for abscess. 3. There is severe narrowing of the thecal sac beginning at the L1 level and e xtending into the sacrum. CSF is seen not seen around the nerve roots throughou t these levels. 4. Increased signal within the L5-S1 disc space anteriorly. The posterior dis c margin appears intact. This is nonspecific. Early infection cannot be ruled o ut. There is no bony destruction. Cervical Spine MRI 12/11/17 0000 Signed Impressions: CONCLUSION: 1. Status post placement of anterior cervical fusion plate at the C5-C7 levels . 2. Continued anterior fluid collection likely related to an epidural versus valles bdural collection. This extends from the tip of the dens to the T2 level. This looks similar to the prior exam. There is mild narrowing of the thecal sac thro ughout however there is CSF seen around the cord throughout. 3. Continued prevertebral fluid/inflammatory change. Chest X-Ray 12/10/17 0500 Signed Impressions: CONCLUSION: Stable single view the chest. ET tube and nasogastric both good position. Diffu se airspace disease and pleural effusions are unchanged Last Impressions Cervical Spine MRI 12/07/17 0000 Signed Impressions: CONCLUSION: 1. Suspected discitis involving the C6-C7 level and possibly the C5-C6 level. 2. Large anterior epidural abscess extending from the tip of the dens down to the T2 level this causes moderate to severe stenosis throughout the mid and low er cervical and upper thoracic spine. 3. Anterior prevertebral abscess seen to the left of midline extending from th e C5 through T1 levels. There is fairly extensive prevertebral soft tissue swel ling. Chest CT 12/06/172158 Signed Impressions: CONCLUSION: 1. There are numerous patchy infiltrates throughout the lungs left greater eliana n right. Some of the infiltrates are borderline cavitary particularly in the le ft upper lobe. Moderate-sized bilateral pleural effusions. The scattered pulmon gus disease is new since February 2017 Chest X-Ray 12/06/171958 Signed Impressions: CONCLUSION: Interval development of bilateral effusions and patchy airspace disease since A pril 2017. Renal Ultrasound 12/06/17 0000 Signed Impressions: CONCLUSION: 1. Both kidneys are echogenic suggesting chronic medical renal disease. Small cyst lower pole right kidney Objective Remarks GENERAL: Middle-age male who appears much older than stated age, lying in bed, intubated, sedated HEENT: Normocephalic. Atraumatic. Pupils equal, round, reactive, conjugate. Mucous membranes are moist NECK: Trachea is midline. There is no JVD. neck incision c/d/i with ARELIS drain with minimal sanguinous output. CHEST: Equal chest rise. PRVC. full support. left chest tube to suction. CARDIOVASCULAR: Normal rate, regular rhythm. Sinus by telemetry. ABDOMEN: Soft, nontender, nondistended. No guarding. MUSCULOSKELETAL: Pulses 2+. No peripheral edema. NEUROLOGICAL: RASS -2. moves all extremities, weak, particularly LUE. SKIN: Multiple abrasions and abscesses in various stages of healing, the largest is on the right forearm which is approximately 3 cm x 2 cm and has recently been incised and drained with packing still in the wound. Track mcclain present. A/P Assessment and Plan Assessment: 47-year-old male with history of IV drug abuse and prior endocarditis presents with severe sepsis and large cervical epidural abscess with evidence of new and worsening acute upper and lower extremity myelopathy. Now s/p cervical decompression and cage fusion. remains critically ill. continue antibiotics and wean mechanical ventilation as tolerated. unsafe to extubate until mental status improves. Plan by systems: Neurologic: Cervical epidural abscess and discitis s/p cervical decompression, cage fusion 12/07 IV opiate abuse IV amphetamine abuse Acute metabolic encephalopathy secondary to severe sepsis Acute post-operative pain Frequent neurochecks Neurosurgery: Dr. Chu gabapentin 300mg po q8h tizanidine 4mg po q12h for pain oxycodone scheduled for post-op pain continue propofol for goal RASS -2. Start fentanyl GTT on 12/12 for discomfort daily sedation vacation. added precedex. MRI spine done on 12/11 shows persistent abscess along the cervical/thoracic and lumbar spine. This was discussed with ID and Dr. Brandon. Dr. Brandon does not feel patient is a surgical candidate due to extent of abscess formation and recommend palliative care consult as prognosis is extremely poor. Respiratory: Acute hypoxic and hypercarbic respiratory failure likely significant component of neuromuscular weakness from cervical epidural abscess prior to surgery: FVC 700mL, NIF -20. daily SBTs wean fio2 for goal spo2 > 90% vent bundle hob elevated nebs Cardiovascular: Severe sepsis Afib with RVR HTN Continue amiodarone drip. On nicardipine gtt., IV Lopressor. Decreased IV fluids and change to half NS at 60 cc/h Renal: Acute kidney injury Secondary to sepsis and bacteremia continue beaver continue mivf daily bmp send urine electrolytes, eos. -- Strict I/Os FEN/GI: Acute intravascular volume depletion- resolving. Acute protein calorie malnutrition: Severe NGT tube feeds ICU electrolyte protocol Daily BMP Maintenance IV fluids bowel regimen Heme/ID: Severe sepsis Gram-positive bacteremia: MRSA Cervical epidural abscess/discitis History of endocarditis 2d echo: negative for vegetations. TIM will not change medical management at this time. Vancomycin with pharmacy dosing cefepime IV ID added Teflaro IV on 12/11 due to worsening MRI. ID consult: Dr. Szymanski following Endocrine: -- SSI if required for hyperglycemia Prophylaxis: GI Prophylaxis Pepcid DVT Prophylaxis -- SCDs Holding pharmacologic DVT prophylaxis in the setting of neurosurgery Lines: Peripheral IVs. Dispo: remain in ICU. Very critically ill and worsening acute myelopathy. unable to separate from mechanical ventilation at this time. Discussed with ID and discussed with neurosurgery Dr. Brandon. Dr. Brandon does not feel patient is a candidate for neurosurgical intervention due to extent of his abscess formation involving almost entire length of spine. He recommends consulting palliative care. Consulted palliative care service to assist with deciding goals of therapy. Prognosis appears poor. This patient remains critically ill with one or more organ systems which are or may become a threat to life. I have spent in excess of 30 minutes discontinuously in the care and management of this patient. This time is exclusive of procedures, and includes, but is not limited to, evaluation of the patient, review of the medical record, discussions with family, consultants, nursing staff, or respiratory therapy, and documentation in the medical record. Pieter Michel MD Dec 13, 2017 10:33
--- NOTE | 2017-12-13 11:14 | HHI.NSPN ---
(Uma Rene) Note Status Status: Progress Note (Uma Rene) Interval History Interval History 47-year-old male with epidural abscess, discitis, osteomyelitis status post C5- 6 and C6-7 anterior cervical discectomy, evacuation of cervical epidural and intradural abscess, C5-6 and C6-7 anterior interbody fusion, allograft bone, anterior cervical instrumentation 12/11: Intubated, sedated. Cervical collar in place. 12/12: remains intubated, sedates. Repeat MRI of spine yesterday reviewed by Dr. Brandon. 12/13: intubated and well sedated, reported to minimally withdraw in lower extremities. (Uma Rene) Labs, Micro, & Vital Signs Results Date Time Temp Pulse Resp B/P (MAP) Pulse Ox O2 Delivery O2 Flow Rate FiO2 12/13/17 10:33 22 12/13/17 10:00 74 12/13/17 09:06 97 55 12/13/17 08:00 55 12/13/17 08:00 99.8 94 24 175/93 (120) 97 12/13/17 08:00 91 12/13/17 07:00 98 Mechanical Ventilator 55 12/13/17 06:00 104 12/13/17 04:00 50 12/13/17 04:00 64 12/13/17 04:00 98.4 64 22 152/88 (109) 98 12/13/17 03:50 100 40 12/13/17 02:00 59 12/13/17 01:29 59 138/76 12/13/17 00:00 50 12/13/17 00:00 59 12/13/17 00:00 98.9 58 22 139/81 (100) 100 12/12/17 23:50 100 50 12/12/17 22:00 61 12/12/17 20:35 100 Mechanical Ventilator 60 12/12/17 20:35 100 60 12/12/17 20:00 98.9 62 22 148/88 (108) 100 12/12/17 20:00 62 6/23/18 20:00 60 12/12/17 20:00 98.9 62 22 148/88 (108) 100 12/12/17 19:00 100 Mechanical Ventilator 70 12/12/17 18:30 61 146/87 12/12/17 18:07 61 12/12/17 16:00 70 12/12/17 16:00 98.7 60 22 146/89 (108) 100 12/12/17 16:00 60 12/12/17 15:41 100 70 12/12/17 15:00 98.7 60 22 146/89 (108) 12/12/17 14:03 61 136/73 12/12/17 14:00 62 12/12/17 12:57 98.7 73 25 98 12/12/17 12:35 108 143/100 12/12/17 12:14 131 12/12/17 12:00 70 12/12/17 12:00 99.7 130 22 148/92 (110) 97 12/12/17 11:22 95 70 Constitutional Vital Signs Date Time Temp Pulse Resp B/P (MAP) Pulse Ox O2 Delivery O2 Flow Rate FiO2 12/13/17 10:33 22 12/13/17 10:00 74 12/13/17 09:06 97 55 12/13/17 08:00 55 12/13/17 08:00 99.8 94 24 175/93 (120) 97 12/13/17 08:00 91 12/13/17 07:00 98 Mechanical Ventilator 55 12/13/17 06:00 104 12/13/17 04:00 50 12/13/17 04:00 64 12/13/17 04:00 98.4 64 22 152/88 (109) 98 12/13/17 03:50 100 40 12/13/17 02:00 59 12/13/17 01:29 59 138/76 12/13/17 00:00 50 12/13/17 00:00 59 12/13/17 00:00 98.9 58 22 139/81 (100) 100 12/12/17 23:50 100 50 12/12/17 22:00 61 12/12/17 20:35 100 Mechanical Ventilator 60 12/12/17 20:35 100 60 12/12/17 20:00 98.9 62 22 148/88 (108) 100 12/12/17 20:00 62 12/12/17 20:00 60 12/12/17 20:00 98.9 62 22 148/88 (108) 100 12/12/17 19:00 100 Mechanical Ventilator 70 12/12/17 18:30 61 146/87 12/12/17 18:07 61 12/12/17 16:00 70 12/12/17 16:00 98.7 60 22 146/89 (108) 100 12/12/17 16:00 60 12/12/17 15:41 100 70 12/12/17 15:00 98.7 60 22 146/89 (108) 12/12/17 14:03 61 136/73 12/12/17 14:00 62 12/12/17 12:57 98.7 73 25 98 12/12/17 12:35 108 143/100 12/12/17 12:14 131 12/12/17 12:00 70 12/12/17 12:00 99.7 130 22 148/92 (110) 97 12/12/17 11:22 95 70 (Uma Rene) Review of Systems ROS Limitations: Clinical Condition, Intubated (Uma Rene) Physical Exam Mr Duncan remains intubated and well sedated. No obvious distress. No response to pain Cervical wound with OptiForm dressing intact in his neck Cervical collar immobilized by a Kershaw collar Musculoskeletal: No obvious deformities to extremities, sedated and not following commands to motor testing, no response to pain stim x 4 ext Neuro: Sedated, pupils equal, facial motor appears symmetric at rest. Plantars silent response bilaterally Heart regular rate rhythm Lungs clear (Uma Rene) Medical Decision Making MDM Remarks 47-year-old male with epidural abscess, discitis, osteomyelitis status post C5- 6 and C6-7 anterior cervical discectomy, evacuation of cervical epidural and intradural abscess, C5-6 and C6-7 anterior interbody fusion, allograft bone, anterior cervical instrumentation by Dr. Chu 12/08/17 Last Impressions Thoracic Spine MRI 12/11/17 0000 Signed Impressions: CONCLUSION: 1. There is an anterior extra-axial fluid collection extending from the dens t o T2. This was present on the prior cervical spine and does not appear signific ant changed. This could be an anterior epidural or subdural abscess. 2. Increased signal throughout the epidural space throughout the thoracic spin e extending from the T2-T3 through the T11-T12 level concerning for abscess thr oughout this region. 3. Mild disc changes at the T3-T4 through T6-T7 levels as described above. Sig nificant stenosis from the disc changes is not seen. 4. Multiple pulmonary masses, areas of consolidation, and effusions. Lumbar Spine MRI 12/11/17 0000 Signed Impressions: CONCLUSION: 1. Abnormal signal seen throughout the epidural space. This concerning for inf ection. 2. More focal anterior epidural collections at the L4 and L5 and upper sacral regions concerning for abscess. 3. There is severe narrowing of the thecal sac beginning at the L1 level and e xtending into the sacrum. CSF is seen not seen around the nerve roots throughou t these levels. 4. Increased signal within the L5-S1 disc space anteriorly. The posterior dis c margin appears intact. This is nonspecific. Early infection cannot be ruled o ut. There is no bony destruction. Cervical Spine MRI 12/11/17 0000 Signed Impressions: CONCLUSION: 1. Status post placement of anterior cervical fusion plate at the C5-C7 levels . 2. Continued anterior fluid collection likely related to an epidural versus valles bdural collection. This extends from the tip of the dens to the T2 level. This looks similar to the prior exam. There is mild narrowing of the thecal sac thro ughout however there is CSF seen around the cord throughout. 3. Continued prevertebral fluid/inflammatory change. Chest X-Ray 12/10/17 0500 Signed Impressions: CONCLUSION: Stable single view the chest. ET tube and nasogastric both good position. Diffu se airspace disease and pleural effusions are unchanged Cervical Spine X-Ray 12/08/17 0000 Signed Impressions: CONCLUSION: Inter vertebral discs are in place Chest CT 12/06/17 2159 Signed Impressions: CONCLUSION: 1. There are numerous patchy infiltrates throughout the lungs left greater eliana n right. Some of the infiltrates are borderline cavitary particularly in the le ft upper lobe. Moderate-sized bilateral pleural effusions. The scattered pulmon gus disease is new since February 2017 Renal Ultrasound 12/06/17 0000 Signed Impressions: CONCLUSION: 1. Both kidneys are echogenic suggesting chronic medical renal disease. Small cyst lower pole right kidney (Uma Rene) Plan Plan Remarks repeat MRI of spine reviewed by Dr. Aleksandr, had dw ID and CC, palliative care consulted Continue neuro checks, Continue IV antibiotics (Uma Rene) Attending Statement The exam, history, and the medical decision-making described in the above note were completed with the assistance of the mid-level provider. I reviewed and agree with the findings presented. I attest that I had a [id number] encounter with the patient on the same day, and personally performed and documented my assessment and findings in the medical record. (David Brandon MD) Uma Rene Dec 13, 2017 11:14 David Brandon MD Dec 16, 2017 14:11
[2017-12-13] MEDS: VANCOMYCIN INJ 1,750 MG in SODIUM CHLORID 0.9% 500 ML INJ 500 ML IV SCH (12:30)
[2017-12-13] MEDS: fentaNYL DRIP 250 ML IV PRN (17:20)
[2017-12-13] MEDS: AMIODARONE INJ 450 MG in SODIUM CHLOR 0.9% (EXCEL) INJ 241 ML IV PRN (20:48)
[2017-12-14] VITALS (24 sets, daily range): BP systolic 133–169; BP diastolic 71–103; PULSE 56–90; RESP 22–32; TEMP 97.8–99.5; O2SAT 82–100
[2017-12-14] MEDS: niCARdipine 25 MG/NS 250 ML Vial2Bag or IV room IV PRN ×14 (00:53→23:49)
[2017-12-14] MEDS: PROPOFOL 1000 MG/100 ML IV PRN ×5 (00:54→18:06)
[2017-12-14] MEDS: SODIUM CHLOR 0.45% 1000 ML INJ 1,000 ML IV SCH (03:10)
[2017-12-14] MEDS: oxyCODONE HCL ORAL CONC 5 MG/0.25 ML SYRINGE PO SCH ×6 (04:00→23:48)
[2017-12-14 04:26] LABS: HEMATOCRIT 21.6 % (39.0-51.0); MEAN CELL VOLUME 83.1 FL (80.0-100.0); MEAN CORPUSCULAR HGB CONC 31.2 % (32.0-36.0); MEAN PLATELET VOLUME 9.2 FL (7.0-11.0); PLATELET COUNT 122 TH/MM3 (150-450); RED BLOOD COUNT 2.59 MIL/MM3 (4.50-5.90); RED CELL DISTRIBUTION WIDTH 17.2 % (11.6-17.2); WHITE BLOOD COUNT 14.1 TH/MM3 (4.0-11.0)
[2017-12-14 04:36] LABS: HEMOGLOBIN 6.7 GM/DL (13.0-17.0)
[2017-12-14 04:51] LABS: ALBUMIN 1.1 GM/DL (3.4-5.0); AST (GOT) 17 U/L (15-37); BICARBONATE 23.5 MEQ/L (21.0-32.0); BLOOD UREA NITROGEN 40 MG/DL (7-18); CALCIUM 7.8 MG/DL (8.5-10.1); CHLORIDE 119 MEQ/L (98-107); CREATININE 1.09 MG/DL (0.60-1.30); GLOMERULAR FILTRATION RATE 72 ML/MIN (>89); GLUCOSE,RANDOM 100 MG/DL (74-106); SODIUM (NA) 151 MEQ/L (136-145)
[2017-12-14 04:54] LABS: INTERNATIONAL NORMALIZED RATIO 1.1 RATIO; PROTHROMBIN TIME - PATIENT 11.4 SEC (9.8-11.6)
[2017-12-14 04:57] LABS: ALKALINE PHOSPHATASE 84 U/L (45-117); ALT (GPT) 12 U/L (12-78); TOTAL BILIRUBIN ADULT 0.3 MG/DL (0.2-1.0); TOTAL PROTEIN 6.9 GM/DL (6.4-8.2)
[2017-12-14] MEDS: METOPROLOL TARTRATE 5 MG/5 ML VIAL IV PUSH SCH ×4 (05:00→21:59)
[2017-12-14] MEDS: CEFEPIME INJ 2,000 MG in SODIUM CHLORIDE 0.9% INJ 100 ML IV SCH ×2 (06:00→18:06)
[2017-12-14] MEDS: VANCOMYCIN INJ 1,750 MG in SODIUM CHLORID 0.9% 500 ML INJ 500 ML IV SCH ×2 (06:00→23:48)
[2017-12-14] MEDS: CEFTAROLINE INJ 600 MG in SODIUM CHLORIDE 0.9% INJ 100 ML IV SCH ×3 (07:00→21:59)
[2017-12-14] MEDS: fentaNYL DRIP 250 ML IV PRN ×2 (07:15→16:38)
[2017-12-14] MEDS: AMIODARONE INJ 450 MG in SODIUM CHLOR 0.9% (EXCEL) INJ 241 ML IV PRN (07:44)
[2017-12-14] MEDS: REMOVE OLD LIDOCAINE PATCH T-DERMAL SCH ×2 (09:00→21:00)
[2017-12-14] MEDS: ENOXAPARIN SODIUM 30 MG/0.3 ML SYRINGE SQ SCH (09:44)
[2017-12-14] MEDS: LIDOCAINE HCL 5% PATCH T-DERMAL SCH (09:44)
[2017-12-14] MEDS: GABAPENTIN 250 MG/5 ML UDC NG SCH ×3 (09:44→18:06)
[2017-12-14] MEDS: CHLORHEXIDINE 0.12% (ORAL KIT) 15 ML CUP OROPHARYNG SCH ×2 (09:45→21:59)
[2017-12-14] MEDS: SODIUM CHLORIDE 0.9% FLUSH 10 ML FLUSH IV FLUSH SCH ×2 (09:45→22:00)
[2017-12-14] MEDS: DOCUSATE SODIUM 50 MG/SENNA 8.6 MG TAB PO SCH ×2 (09:49→22:00)
[2017-12-14] MEDS: MAGNESIUM HYDROXIDE SUSP 30 ML CUP PO PRN (09:49)
--- NOTE | 2017-12-14 10:16 | HHI.NSPN ---
(Aftab Newman) History Chief Complaint: Unable to obtain due to patient's clinical condition. (Aftab Newman) Interval History 12/07: 47-year-old male with a history of IV drug abuse. Multiple admissions since March 2017 for several areas of cutaneous, soft tissue abscess formation , sepsis. Recent admission September 2017 for antecubital abscesses. Presents to the emergency department 12/06/2017 with generalized fatigue, abdominal pain, productive cough. Now complains of neck pain. Positive progressive numbness, dysesthesia upper extremities with quadriparesis noted today. He went emergently to the operating room for a C5-6 and C6-7 ACDF and evacuation of a cervical epidural and intradural abscess. Post-operatively the patient was admitted to the [facility] unit for further care and monitoring. 12/08: The patient is intubated and mechanically ventilated when seen this morning. He had propofol infusing for sedation. Nursing reports that she was not able to obtain a temperature on the patient this morning and she increased the ambient temperature. An hour later his temp was 94.1. She placed warm blankets on him and an external warming blanket. His temp when seen was 97.5. Upon evaluation he had movement of the right foot to noxious stimulation. There was questionable movement of the left toes. He had no response with the upper extremities. He is noted to have a purplish rash to the distal lower extremities. Also the left pupil was slightly larger than the right and both were non-reactive. Breath sounds were decreased on the left. 12/09: When seen this morning the patient is agitated and moving his head about. His sedation has been on hold per Nursing. He is intubated and on CPAP/ PSV. He was did move the upper extremities and left lower to command and after that moved them spontaneously. No movement was noted to the right lower. 12/10: This morning the patient is lethargic but is sedated with dexmedetomidine and propofol. He remains intubated and is on PRVC A/C settings. He moved the right upper extremity to noxious stimulation to the left side extremities, but he had no response with any extremity to noxious stimulation applied to it. The pupils were unequal and questionably reactive. Nursing reports that he is to go for his MRI scans of the spine later today. She also said the patient's sedation was resumed due to his agitation and elevated systolic blood pressure. 12/11: Intubated, sedated. Cervical collar in place. 12/12: remains intubated, sedates. Repeat MRI of spine yesterday reviewed by Dr. Brandon. 12/13: intubated and well sedated, reported to minimally withdraw in lower extremities. 12/14: The patient remains lethargic. He is still intubated and mechanically ventilated with propofol infusing for sedation. He did move the right foot some to command and also spontaneously. He did have some response of the right-sided extremities to noxious stimulation but not the left. Nursing reported some right lower extremity movement to command as well. She reported that when his sedation is weaned down the patient becomes agitated. Patient being transfused for haemoglobin level of 6.7 this morning. (Aftab Newman) Exam Results 12/12/17 12/12/17 12/13/17 12/13/17 12/14/17 12/14/17 06:00 18:00 06:00 18:00 06:00 18:00 Intake Total 900 ml 1700 ml 1907 ml 1696 ml 1120 ml Output Total 1200 ml 2900 ml 1590 ml 1820 ml 2000 ml Balance -300 ml -1200 ml 317 ml -124 ml -880 ml Intake Oral 0 ml 0 ml 0 ml IV Total 1700 ml 200 ml 700 ml Tube Feeding 500 ml 1287 ml 596 ml 720 ml Tube Irrigant 400 ml Other 400 ml 420 ml 400 ml Output Urine Total 1200 ml 2900 ml 1550 ml 1800 ml 2000 ml Stool Total 0 ml 0 ml Chest Tube Drainage Total 0 ml 40 ml 20 ml 0 ml # Bowel Movements 0 0 Vital Signs Date Time Temp Pulse Resp B/P (MAP) Pulse Ox O2 Delivery O2 Flow Rate FiO2 12/14/17 09:32 98 55 12/14/17 08:07 98.8 75 24 167/99 99 12/14/17 07:44 75 134/80 12/14/17 07:15 58 129/77 12/14/17 07:15 100 Mechanical Ventilator 55 12/14/17 06:00 58 12/14/17 04:00 58 12/14/17 04:00 97.8 58 24 136/82 (100) 98 12/14/17 04:00 55 12/14/17 03:53 100 55 12/14/17 02:00 63 12/14/17 00:53 59 135/76 12/14/17 00:00 63 12/14/17 00:00 98.8 59 22 100 12/14/17 00:00 40 12/13/17 23:38 100 55 12/13/17 22:00 59 12/13/17 21:43 22 12/13/17 21:00 100 55 12/13/17 20:48 61 145/81 12/13/17 20:00 40 12/13/17 20:00 97.8 60 22 142/76 (98) 100 12/13/17 20:00 62 12/13/17 19:00 100 Mechanical Ventilator 55 12/13/17 18:00 67 12/13/17 17:20 67 160/94 12/13/17 16:12 100 55 12/13/17 16:00 55 12/13/17 16:00 98.3 68 22 158/88 (111) 100 12/13/17 16:00 68 12/13/17 15:01 65 150/89 12/13/17 14:00 68 12/13/17 12:00 99.0 66 22 144/85 (104) 100 12/13/17 12:00 66 12/13/17 12:00 55 12/13/17 11:12 99 55 12/13/17 10:00 74 12/13/17 09:06 97 55 12/13/17 08:00 55 12/13/17 08:00 99.8 94 24 175/93 (120) 97 12/13/17 08:00 91 12/13/17 07:00 98 Mechanical Ventilator 55 12/13/17 06:00 104 12/13/17 04:00 50 12/13/17 04:00 64 12/13/17 04:00 98.4 64 22 152/88 (109) 98 12/13/17 03:50 100 40 12/13/17 02:00 59 12/13/17 01:29 59 138/76 12/13/17 00:00 50 12/13/17 00:00 59 6/24/18 00:00 98.9 58 22 139/81 (100) 100 12/12/17 23:50 100 50 12/12/17 22:00 61 12/12/17 20:35 100 Mechanical Ventilator 60 12/12/17 20:35 100 60 12/12/17 20:00 98.9 62 22 148/88 (108) 100 12/12/17 20:00 62 12/12/17 20:00 60 12/12/17 20:00 98.9 62 22 148/88 (108) 100 12/12/17 19:00 100 Mechanical Ventilator 70 12/12/17 18:30 61 146/87 12/12/17 18:07 61 12/12/17 16:00 70 12/12/17 16:00 98.7 60 22 146/89 (108) 100 12/12/17 16:00 60 12/12/17 15:41 100 70 12/12/17 15:00 98.7 60 22 146/89 (108) 12/12/17 14:03 61 136/73 12/12/17 14:00 62 12/12/17 12:57 98.7 73 25 98 12/12/17 12:35 108 143/100 12/12/17 12:14 131 12/12/17 12:00 70 12/12/17 12:00 99.7 130 22 148/92 (110) 97 12/12/17 11:22 95 70 12/12/17 11:00 99.7 128 22 153/94 (113) 12/12/17 10:15 150 12/12/17 10:00 107 12/12/17 09:40 150 167/105 12/12/17 08:32 92 40 12/12/17 08:21 24 12/12/17 08:00 40 12/12/17 08:00 101.0 96 23 171/91 (117) 96 12/12/17 08:00 99.7 96 23 171/41 (84) 96 12/12/17 08:00 95 12/12/17 07:00 92 Mechanical Ventilator 40 12/12/17 06:00 87 12/12/17 04:06 99 40 12/12/17 04:00 40 12/12/17 04:00 98.5 79 22 148/81 (103) 98 6/23/18 04:00 80 12/12/17 02:00 81 12/12/17 01:31 100 40 12/12/17 00:00 97.7 75 22 138/84 (102) 98 12/12/17 00:00 40 12/12/17 00:00 81 12/11/17 22:00 70 12/11/17 20:10 100 40 12/11/17 20:00 62 12/11/17 20:00 98.1 65 22 117/67 (84) 100 12/11/17 20:00 40 12/11/17 19:00 100 Mechanical Ventilator 40 12/11/17 18:00 68 12/11/17 17:10 100 40 12/11/17 16:21 68 116/66 12/11/17 16:00 98.8 73 22 115/62 (79) 97 12/11/17 16:00 40 12/11/17 16:00 68 12/11/17 14:00 80 12/11/17 12:00 99.4 64 22 116/72 (87) 98 12/11/17 12:00 100 100 12/11/17 12:00 64 12/11/17 12:00 40 12/11/17 11:32 99 40 12/11/17 11:14 69 117/62 (Aftab Newman) Physical Examination GENERAL: Lethargic, intubated & mechanically ventilated. Propofol 50 mcg/kg/min infusing for sedation. Vasoactive drips infusing for blood pressure. SKIN: Intact dressing to anterior neck surgical incision. Purpura to both distal lower extremities. HEENT: Normocephalic, atraumatic. Pupils 2 to 3 mm, reactive. Orally intubated. OGT. NECK: [place] J cervical collar in place. Intact dressing to anterior surgical incision. No JVD. Trachea midline. MUSCULOSKELETAL: No evident clubbing or deformities. Moved RUE & RLE to noxious stimulation but not LUE OR LLE. Some spontaneous right foot movement. (See below for details under NEUROLOGICAL.) NEUROLOGICAL: Lethargic but sedated. No eye opening to any stimulation. Pupil 2 to 3 mm, reactive. Nonverbal, intubated. Trace cough reflex to suctioning. Appeared patient did slightly move right foot to command and after that spontaneously. Moved RLE to LLE local noxious stimulation but not to RLE. Move RUE to RLE & RUE local noxious stimulation. No movement of LUE or LLE to local noxious stimulation. No extremity response to central noxious stimulation. (Aftab Newman) Lab, Micro, Other Results Laboratory Tests Test 12/12/17 05:40 12/13/17 04:44 12/14/17 03:50 White Blood Count 18.9 TH/MM3 17.9 TH/MM3 14.1 TH/MM3 Red Blood Count 2.74 MIL/MM3 2.76 MIL/MM3 2.59 MIL/MM3 Hemoglobin 7.3 GM/DL 7.2 GM/DL 6.7 GM/DL Hematocrit 22.5 % 22.7 % 21.6 % Mean Corpuscular Volume 82.1 FL 82.3 FL 83.1 FL Mean Corpuscular Hemoglobin 26.5 PG 26.2 PG 26.0 PG Mean Corpuscular Hemoglobin Concent 32.3 % 31.9 % 31.2 % Red Cell Distribution Width 17.2 % 17.2 % 17.2 % Platelet Count 111 TH/MM3 122 TH/MM3 122 TH/MM3 Mean Platelet Volume 8.4 FL 8.7 FL 9.2 FL Prothrombin Time 11.7 SEC 11.5 SEC 11.4 SEC Prothromb Time International Ratio 1.2 RATIO 1.1 RATIO 1.1 RATIO Activated Partial Thromboplast Time 28.1 SEC 28.7 SEC 28.8 SEC Blood Urea Nitrogen 48 MG/DL 45 MG/DL 40 MG/DL Creatinine 1.48 MG/DL 1.18 MG/DL 1.09 MG/DL Random Glucose 121 MG/DL 112 MG/DL 100 MG/DL Total Protein 6.9 GM/DL 7.3 GM/DL 6.9 GM/DL Albumin 1.2 GM/DL 1.2 GM/DL 1.1 GM/DL Calcium Level 7.9 MG/DL 8.0 MG/DL 7.8 MG/DL Alkaline Phosphatase 110 U/L 97 U/L 84 U/L Aspartate Amino Transf (AST/SGOT) 21 U/L 19 U/L 17 U/L Alanine Aminotransferase (ALT/SGPT) 14 U/L 11 U/L 12 U/L Total Bilirubin 0.5 MG/DL 0.3 MG/DL 0.3 MG/DL Sodium Level 153 MEQ/L 154 MEQ/L 151 MEQ/L Potassium Level 4.5 MEQ/L 4.4 MEQ/L 4.1 MEQ/L Chloride Level 121 MEQ/L 123 MEQ/L 119 MEQ/L Carbon Dioxide Level 21.4 MEQ/L 22.9 MEQ/L 23.5 MEQ/L Anion Gap 11 MEQ/L 8 MEQ/L 9 MEQ/L Estimat Glomerular Filtration Rate 51 ML/MIN 66 ML/MIN 72 ML/MIN (Aftab Newman) Medical Decision Making Impression and Plan Impression: 1. Extensive cervical and upper thoracic anterior epidural abscess with significant canal and cord compromise. 2. C5-6 and C6-7 discitis. Significant destruction of the C6 vertebral body with osteomyelitis 3. History of IV drug abuse 4. History of bacterial endocarditis Postoperative Diagnosis: 1. Cervical epidural abscess 2. Cervical intradural abscess Patient remains critical. He continues to be sedated due to agitation. He had right foot movement to command & spontaneously. He had varying response w/right side extremities to noxious stimulation. No Response w/left side extremities to any stimulation. Pupils & reactive. Past 24 hrs: 99.8 T max. Intermittent bradycardia. SBP intermittently elevated. Reviewed labs for today. Improvement in leukocytosis. Drop in haemoglobin level to 6.7, being transfused. Stable thrombocytopenia. INR 1.1 & aPTT 28.8. Sodium 151. Improvement in renal function. Abscess, blood & sputum cultures all positive for methicillin resistant Staphylococcus aureus. POD #6 () s/p: 1. C5-6 and C6-7 anterior cervical discectomy, evacuation of cervical epidural and intradural abscess. 2. C5-6 and C6-7 anterior interbody fusion, allograft bone 3. C5-7 anterior cervical instrumentation ARELIS drain d/c'd . Plan: Primary & critical care management per Data Entry Machine Operator. Neuro checks. Wean sedation & ventilation as appropriate. [place] J cervical collar at all times. Monitor ARELIS drain output. Mobilise patient w/assistance when appropriate. Physical & Occupational Therapy eval & tx. (Aftab Newman) Attending Statement The exam, history, and the medical decision-making described in the above note were completed with the assistance of the mid-level provider. I reviewed and agree with the findings presented. I attest that I had a [id number] encounter with the patient on the same day, and personally performed and documented my assessment and findings in the medical record. Patient remains intubated and sedated. Intermittent episodes of hemodynamic instability. MRI imaging is showing further extensive epidural abscess in the thoracolumbar region. Infectious disease and palliative care following Overall very poor prognosis. Formulating overall goals with patient's family. (Ryan Chu MD) Aftab Newman Dec 14, 2017 10:16 Ryan Chu MD Dec 15, 2017 19:40
--- NOTE | 2017-12-14 11:17 | PD.CONS ---
Consult Service Palliative Care . Consult Requested By Dr. Michel . Primary Care Physician No Primary Care Physician . Reason for Consultation a. To assist with evaluation and management of symptoms including: Dyspnea, pain b. To assist medical decision maker(s) with: better understanding of current medical conditions; weighing benefits/burdens of medical treatment options; making medical treatment decisions. . HPI History of Present Illness Mr. Duncan is a 47 year old male with a history of IV drug abuse and endocarditis who presented to [place] [facility] on 12/06/2017 for evaluation of an abscess on his right forearm. Patient reported the abscess has been present for approximately 3 days and is located in an injection site. He reported pain and endorsed subjective fever/chills. Of note, the patient was treated for mitral valve endocarditis last year. He has had multiple infections in his upper extremity related to injections from his IV drug use. His most recent admission was in September, with bilateral antecubital abscesses; he had an echo done at that time which did not show any vegetation in the mitral valve. Patient denies history of HIV or hepatitis. Additional diagnostic data: * Vital signs: Pulse 105, respirations 16, BP 140/95 and oxygen saturation of 95 % on room air * WBC: 17.8, hemoglobin 13.6, hematocrit 40.5, platelets 121, neutrophils 92.8% * Sodium: 129, potassium 3.0, chloride 90, glucose 91, calcium 8.4, magnesium 3.0 * BUN: 75, creatinine 2.94, GFR 23 * Lactic acid: 2.7 * Total bilirubin: 1.9, AST 46, ALT 29, alkaline phosphatase 191 * Total creatine kinase 155 * CK-MB: 8.6 * Troponin: 0.03 * C-reactive protein: 18.00 * Total protein: 7.9, albumin 2.2 * PT: 12.1, INR 1.2, APTT 27.4 * Toxicology screening: + opiates; + amphetamines * CT chest showed numerous patchy infiltrates throughout the lungs, left greater than right. Some of the infiltrates are borderline cavitary particularly in the left upper lobe. Moderate sized bilateral pleural effusions. * Chest x-ray revealed interval development of bilateral effusions and patchy airspace disease since September, * Renal ultrasound showing bilateral echogenic kidneys suggesting chronic medical renal disease. * EKG: sinus rhythm with a heart rate of 86; frequent PVCs; no acute ST segment elevation is noted. Patient received 1L normal saline bolus as well as IV Zosyn and vancomycin. Abscess was drained and irrigated with normal saline; cultures from the abscess : + MRSA; + Serratia Marcescens. Patient was then admitted for further evaluation and medical management of cellulitis/sepsis and HUMAIRA. Blood cultures: + MRSA The following morning the patient was increasingly confused, complaining of severe pain in his torso and neck that limited his movement and significant weakness in his upper and lower extremities. Therefore an MRI of the cervical spine was ordered, revealing a large epidural abscess and discitis. Critical care was consulted. Dr. Melissa discussed the case with radiology, infectious disease and neurosurgery. Patient was made NPO with plans for emergent cervical decompression and cage fusion. Zosyn was changed to cefepime for [employer] penetrance. Echocardiogram showed no evidence of vegetation; left ventricular systolic function was normal with an estimated EF of 60-65%. Follow up imaging on 12/11/17 showing persistent fluid collection involving C- spine, thoracic spine and lumbar spine which is not amenable to neurosurgical intervention per discussions with Dr. Brandon. Palliative Care was consulted to assist with symptom management and to discuss with the family the benefits and burdens of his current illnesses and the options regarding future care. . Function/Cognitive Trajectory Pending conversation with family. . Review of Systems ROS Limitations: Clinical Condition (ROS obtained through review of medical records), Intubated Constitutional: COMPLAINS OF: Pain (Patient c/o sevre nck and torso pain upon admission), Generalized weakness (initially reported weakness in upper and lower extremities) Past Family Social History Coded Allergies: No Known Allergies (Unverified , 12/06/17) Past Medical History IVDU History of endocarditis Hypertension . Past Surgical History Bilateral wrist abscess incision and drainage/washout Forearm incision and drainage Bilateral upper extremity multiple large abscesses-I&D Cervical discectomy, fusion . Reported Medications No Active Prescriptions or Reported Medications . Current Medications Medications (Trade) Dose Ordered Sig/Brennon Route Start Time Stop Time Status Last Admin Pharmacy Profile Note 0 ml @ 0 mls/hr UNSCH OTHER 12/06/17 22:30 (NS Flush) 2 ml UNSCH PRN IV FLUSH 12/06/17 22:30 (NS Flush) 2 ml BID IV FLUSH 12/07/17 09:00 12/13/17 09:06 (Tylenol) 650 mg Q4H PRN PO 12/06/17 22:30 12/07/17 07:51 (Zofran Odt) 4 mg Q6H PRN PO 12/06/17 22:30 (Narcan Inj) 0.4 mg UNSCH PRN IV PUSH 12/06/17 22:30 (Pearl-Colace) 1 tab BID PO 12/07/17 09:00 12/13/17 20:43 (Milk Of Magnesia Liq) 30 ml Q12H PRN PO 12/06/17 22:30 12/13/17 09:03 (Senokot) 17.2 mg Q12H PRN PO 12/06/17 22:30 (Dulcolax Supp) 10 mg DAILY PRN RECTAL 12/06/17 22:30 (Lactulose Liq) 30 ml DAILY PRN PO 12/06/17 22:30 (Lidoderm 5% Patch.12 Hr) 1 patch DAILY T-DERMAL 12/07/17 10:15 12/13/17 09:05 (Lovenox Inj) 30 mg DAILY SQ 12/07/17 11:00 12/13/17 09:04 Miscellaneous Information 1 Q12HR T-DERMAL 12/07/17 21:00 12/13/17 20:44 Cefepime HCl 2000 mg/Sodium Chloride 100 ml @ 200 mls/hr Q12H IV 12/07/17 18:00 12/14/17 06:00 (Dilaudid Pf Inj) 1 mg Q4H PRN IV 12/07/17 20:30 12/12/17 07:47 Phenylephrine HCl 40 mg/Dextrose 500 ml @ 30 mls/hr TITRATE PRN IV 12/08/17 02:30 12/08/17 01:45 (Brethine Inj) 1 mg UNSCH PRN SQ 12/08/17 02:30 Propofol 100 ml @ 24 mls/hr TITRATE PRN IV 12/08/17 02:45 12/14/17 07:14 (Neurontin Liq) 300 mg TID NG 12/08/17 13:00 12/13/17 17:20 (Zanaflex) 4 mg Q12HR PO 12/08/17 10:30 12/13/17 20:44 (Roxicodone Intensol Liq) 20 mg Q4HR PO 12/08/17 12:00 12/13/17 20:43 Nicardipine HCl 25 mg/Sodium Chloride 260 ml @ 52 mls/hr TITRATE PRN IV 12/09/17 18:00 12/14/17 07:15 (Peridex 0.12% Liq) 15 ml BID@0800,2000 OROPHARYNG 12/09/17 20:00 12/13/17 20:00 Dexmedetomidine HCl 200 mcg/ Sodium Chloride 50 ml @ 4.28 mls/hr TITRATE PRN IV 12/09/17 19:00 12/11/17 16:15 (Trandate Inj) 10 mg Q4H PRN IV PUSH 12/10/17 11:00 12/12/17 09:39 Ceftaroline Fosamil 600 mg/ Sodium Chloride 100 ml @ 100 mls/hr Q8H IV 12/11/17 15:00 12/14/17 07:00 Fentanyl Citrate 250 ml @ 5 mls/hr TITRATE PRN IV 12/12/17 09:45 12/14/17 07:15 Amiodarone HCl 450 mg/Sodium Chloride 250 ml @ 33.33 mls/ hr Q7H31M PRN IV 12/12/17 10:08 12/14/17 07:44 (Lopressor Inj) 5 mg Q6H IV PUSH 12/12/17 11:00 12/13/17 20:45 Sodium Chloride 1,000 ml @ 60 mls/hr [id number] IV 12/13/17 10:30 12/14/17 03:10 Vancomycin HCl 1750 mg/Sodium Chloride 517.5 ml @ 250 mls/hr Q18H IV 12/13/17 12:00 12/14/17 06:00 [place] [place] Info[place] SPECIFIC LAB TO BE DRAWN:VANCOMYCIN TROUGH DATE TO... ONCE ONCE .XX 12/14/17 23:45 12/14/17 23:46 . Family History Negative for CAD/DM . Substance Use Tobacco: Occasional tobacco use per notes Alcohol: None known Prescription med abuse: None unknown Illicits: 11 year history of IV drug abuse; previously endorsed marijuana use . Psychosocial History Patient was born and raised in [place]. 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 Spiritual/Cultural Factors Pending conversations with patient's family. . Documented care wishes: None available. . Today's verbally stated goals: Given patient's clinical condition, he is unable to participate in establishing medical treatment goals. . Family/friends goals: Currently aggressive pending identification healthcare proxy decision-maker; followed by discussions to clarify medical treatment goals. . Ethical and Legal Issues At this time it appears the patient is not and does not have children. Per [place] statutes, in the absence of written advanced directives healthcare proxy decision making would fall to a parent; if parents are decision making would fall to a sibling. Physical Exam Vital Signs Date Time Temp Pulse Resp B/P (MAP) Pulse Ox O2 Delivery O2 Flow Rate FiO2 12/14/17 08:07 98.8 75 24 167/99 99 12/14/17 07:44 75 134/80 12/14/17 07:15 58 129/77 12/14/17 07:15 100 Mechanical Ventilator 55 12/14/17 06:00 58 12/14/17 04:00 58 12/14/17 04:00 97.8 58 24 136/82 (100) 98 12/14/17 04:00 55 12/14/17 03:53 100 55 12/14/17 02:00 63 12/14/17 00:53 59 135/76 12/14/17 00:00 63 12/14/17 00:00 98.8 59 22 100 12/14/17 00:00 40 12/13/17 23:38 100 55 12/13/17 22:00 59 12/13/17 21:43 22 12/13/17 21:00 100 55 12/13/17 20:48 61 145/81 12/13/17 20:00 40 12/13/17 20:00 97.8 60 22 142/76 (98) 100 12/13/17 20:00 62 12/13/17 19:00 100 Mechanical Ventilator 55 12/13/17 18:00 67 12/13/17 17:20 67 160/94 12/13/17 16:12 100 55 12/13/17 16:00 55 12/13/17 16:00 98.3 68 22 158/88 (111) 100 12/13/17 16:00 68 12/13/17 15:01 65 150/89 12/13/17 14:00 68 12/13/17 12:00 99.0 66 22 144/85 (104) 100 12/13/17 12:00 66 12/13/17 12:00 55 12/13/17 11:12 99 55 12/13/17 10:00 74 . Exam CONSTITUTIONAL/GENERAL: This is an adequately nourished patient, currently intubated on mechanical ventilator TUBES/LINES/DRAINS: PIV 2, left subclavian central line, left-sided chest tube , Mixon catheter, OGT, SCDs SKIN: No jaundice, rashes, or lesions. Ecchymoses on upper extremities. Skin temperature appropriate. Not diaphoretic. HEAD: Atraumatic. Normocephalic. EYES: Pupils round and reactive. No scleral icterus. No injection or drainage. Fundi not examined. ENT: Nose without bleeding or purulent drainage. NECK: Trachea midline. Supple, nontender. No palpable thyroid enlargement or nodularity. CARDIOVASCULAR: Regular rate and rhythm. No JVD. Peripheral pulses symmetric. RESPIRATORY/CHEST: Intubated on mechanical ventilation. Equal chest rise. PRVC , full support. Sided chest tube to suction GASTROINTESTINAL: Abdomen soft, non-tender, nondistended. No guarding. Bowel sounds present. GENITOURINARY: Without palpable bladder distension. Mixon catheter in place. MUSCULOSKELETAL: Extremities without clubbing, cyanosis, or edema. No mottling or clubbing. LYMPHATICS: No palpable cervical or supraclavicular adenopathy. NEUROLOGICAL: Sedated on propofol, fentanyl and Versed PSYCHIATRIC: Unable to assess given current clinical condition. . Diagnostic Tests Laboratory Laboratory Tests Test 12/12/17 05:40 12/13/17 04:44 12/14/17 03:50 White Blood Count 18.9 TH/MM3 (4.0-11.0) 17.9 TH/MM3 (4.0-11.0) 14.1 TH/MM3 (4.0-11.0) Red Blood Count 2.74 MIL/MM3 (4.50-5.90) 2.76 MIL/MM3 (4.50-5.90) 2.59 MIL/MM3 (4.50-5.90) Hemoglobin 7.3 GM/DL (13.0-17.0) 7.2 GM/DL (13.0-17.0) 6.7 GM/DL (13.0-17.0) Hematocrit 22.5 % (39.0-51.0) 22.7 % (39.0-51.0) 21.6 % (39.0-51.0) Mean Corpuscular Volume 82.1 FL (80.0-100.0) 82.3 FL (80.0-100.0) 83.1 FL (80.0-100.0) Mean Corpuscular Hemoglobin 26.5 PG (27.0-34.0) 26.2 PG (27.0-34.0) 26.0 PG (27.0-34.0) Mean Corpuscular Hemoglobin Concent 32.3 % (32.0-36.0) 31.9 % (32.0-36.0) 31.2 % (32.0-36.0) Red Cell Distribution Width 17.2 % (11.6-17.2) 17.2 % (11.6-17.2) 17.2 % (11.6-17.2) Platelet Count 111 TH/MM3 (150-450) 122 TH/MM3 (150-450) 122 TH/MM3 (150-450) Mean Platelet Volume 8.4 FL (7.0-11.0) 8.7 FL (7.0-11.0) 9.2 FL (7.0-11.0) Prothrombin Time 11.7 SEC (9.8-11.6) 11.5 SEC (9.8-11.6) 11.4 SEC (9.8-11.6) Prothromb Time International Ratio 1.2 RATIO 1.1 RATIO 1.1 RATIO Activated Partial Thromboplast Time 28.1 SEC (24.3-30.1) 28.7 SEC (24.3-30.1) 28.8 SEC (24.3-30.1) Blood Urea Nitrogen 48 MG/DL (7-18) 45 MG/DL (7-18) 40 MG/DL (7-18) Creatinine 1.48 MG/DL (0.60-1.30) 1.18 MG/DL (0.60-1.30) 1.09 MG/DL (0.60-1.30) Random Glucose 121 MG/DL (74-106) 112 MG/DL (74-106) 100 MG/DL (74-106) Total Protein 6.9 GM/DL (6.4-8.2) 7.3 GM/DL (6.4-8.2) 6.9 GM/DL (6.4-8.2) Albumin 1.2 GM/DL (3.4-5.0) 1.2 GM/DL (3.4-5.0) 1.1 GM/DL (3.4-5.0) Calcium Level 7.9 MG/DL (8.5-10.1) 8.0 MG/DL (8.5-10.1) 7.8 MG/DL (8.5-10.1) Alkaline Phosphatase 110 U/L (45-117) 97 U/L (45-117) 84 U/L (45-117) Aspartate Amino Transf (AST/SGOT) 21 U/L (15-37) 19 U/L (15-37) 17 U/L (15-37) Alanine Aminotransferase (ALT/SGPT) 14 U/L (12-78) 11 U/L (12-78) 12 U/L (12-78) Total Bilirubin 0.5 MG/DL (0.2-1.0) 0.3 MG/DL (0.2-1.0) 0.3 MG/DL (0.2-1.0) Sodium Level 153 MEQ/L (136-145) 154 MEQ/L (136-145) 151 MEQ/L (136-145) Potassium Level 4.5 MEQ/L (3.5-5.1) 4.4 MEQ/L (3.5-5.1) 4.1 MEQ/L (3.5-5.1) Chloride Level 121 MEQ/L (98-107) 123 MEQ/L (98-107) 119 MEQ/L (98-107) Carbon Dioxide Level 21.4 MEQ/L (21.0-32.0) 22.9 MEQ/L (21.0-32.0) 23.5 MEQ/L (21.0-32.0) Anion Gap 11 MEQ/L (5-15) 8 MEQ/L (5-15) 9 MEQ/L (5-15) Estimat Glomerular Filtration Rate 51 ML/MIN (>89) 66 ML/MIN (>89) 72 ML/MIN (>89) . Result Diagram: 12/14/17 0350 12/14/17 0350 Microbiology Microbiology Date/Time Source Procedure Growth Status 12/11/17 17:00 Sputum Endotracheal Gram Stain - Final Complete 12/11/17 17:00 Sputum Culture - Final S. Aureus Mrsa Complete . Procedures 12/08/17: Intubation/NGT 12/08/17: Right sided percutaneous pigtail tube thoracostomy 12/08/17: Left subclavian central line . Patient/Family Conference Present at Family Conference: Spoke with patient brother via telephone. . Family Conference Location: Telephone Issues Discussed: * Palliative care role, purpose, approach * Patient/family understanding of the current medical problems * Patient/family understanding of prognosis * Questions answered to the best of my ability * Palliative care contact information provided . Assessment and Plan Disease Oriented Problem List: (1) Renal insufficiency (2) HTN (hypertension) (3) Skin abscess (4) Abscess of right arm (5) Cellulitis of left arm (6) Abscess in epidural space of cervical spine Symptom Scale: (1) Dyspnea (2) Pain Pertinent Non-Medical Issues Psychosocial: Patient was born and raised in [place]. 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 Spiritual: Pending conversation with patient's family Legal: Ethical issues impacting care: No known ethical issues impacting care at this time. . Important Contacts Edy Duncan, father: [phone] Mando Duncan, brother: [phone] . Prognosis Patient is a known IV drug user with a history of endocarditis status post cervical decompression and cage fusion secondary to cervical epidural abscess and discitis. MRI spine done on 12/11/17 showing persistent abscess along the cervical/thoracic and lumbar spine. Patient is not a surgical candidate due to the extent of abscess formation. Prognosis is extremely poor. . Code Status: Full Code Plan * FULL CODE * Decision-making: Patient does not have capacity for medical decision-making at this time. Patient's brother reports the patient is not and does not have children. Per [place] statutes, in the absence of written advanced directives healthcare proxy decision making would fall to a parent. If a parent is not available, decision making would fall to a sibling. * Unable to reach patient's father at listed phone number. Patient's brother states they do not know where their parents are and have not seen them in years. Patient's brother becomes tearful and begins to yell over the phone when being provided with a clinical update, discussing overall prognosis. A female voice then got on the phone stating Mando needed some time and they would call back in 5 minutes. Awaiting return phone call. * Discussed this patient with RN (Soco) and Dr. Michel. * Palliative care will continue to follow this patient throughout his hospitalization to establish trust, assist with symptom management and clarification of medical treatment goals. . Thank you for the opportunity to participate in the care of Mr. Duncan. . Attestation To help prompt me to consider important information that might be impacting today's encounter and assessment, information from prior notes written by myself or my colleagues may have been "brought forward" into today's note. My signature on this note, however, is an attestation that I personally performed the exam, history, and/or decision-making noted today, and, unless otherwise indicated, the interactions with patient, family, and staff as well as the review of records all occurred today. I also attest that the listed assessment and stated plan reflect my best clinical judgment today based on the combination of historical information, prior notes, and today's exam/ interactions. When time spent is documented, it refers only to time spent today by the signer, or if indicated, combined time spent today by collaborating physician/nurse practitioner. . Katie Santana Dec 14, 2017 11:02
[2017-12-14] MEDS ORDERED: LORazepam 2 MG/ML VIAL ONE (12:43)
[2017-12-14] MEDS ORDERED: LORazepam 2 MG/ML VIAL IV ONE (13:15)
--- NOTE | 2017-12-14 13:48 | HHI.CCPN ---
Subjective Remarks/Hospital Course Hospital Course: 47yM with prior IVDA and prior endocarditis who presented with right forearm abscess and severe sepsis. admitted under obs for additional work-up. complained of persistent and severe neck pain for which MRI c-spine was ordered and demonstrates large cervical epidural abscess and discitis. I was called to evaluate the patient. he is significantly weak in his upper and lower extremities and has severe back pain. I discussed the case with radiology, infectious disease, and neurosurgery. made NPO and plan for emergent cervical decompression and cage fusion. 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 continue to follow up cultures and changed 2d echo to "urgent" from "routine" to rule out vegetations. patient is altered from severe sepsis and no additional history is obtainable. ROS is very limited, but + for arm/leg weakness, neck pain, back pain. subjective: 12/08: off vasopressors this AM. remains intubated. TTE being performed to eval for endocarditis. s/p cervical interbody cage fusion and diskectomy. 12/09: continues to fail SBT for somnolence and encephalopathy. today he is agitated, but not following commands. still with + blood cultures despite therapy. Cr rising, likely HUMAIRA secondary to ATN. patient clinically appears adequately hydrated with adequate uop. 12/10: Remains sedated, orally intubated on mechanical ventilation. 12/11: Remains sedated, orally intubated on mechanical ventilation. MRI spine shows persistent fluid collection involving C-spine, thoracic spine and lumbar spine which is not amenable to neurosurgical intervention per discussion with Dr. Brandon. 12/12: Remains sedated, orally intubated on mechanical ventilation. Febrile. Starting fentanyl drip as patient appears uncomfortable. 12/13: Sedated, orally intubated on mechanical ventilation. Converted to sinus rhythm from A. fib last night 12/14: Sedated, orally intubated on mechanical ventilation. Tachypneic. Receiving 1 unit PRBCs for hemoglobin 6.7 this morning. Adjusted vent settings. On propofol/fentanyl GTD. Adding Versed gtt. for sedation. Objective Vital Signs Date Time Temp Pulse Resp B/P (MAP) Pulse Ox O2 Delivery O2 Flow Rate FiO2 12/14/17 12:22 98 55 12/14/17 11:42 82 169/99 12/14/17 11:00 22 12/14/17 08:50 98.9 12/14/17 07:15 Mechanical Ventilator Intake and Output 12/14/17 12/14/17 12/15/17 08:00 16:00 00:00 Intake Total 1120 ml 10 ml Output Total 2000 ml Balance -880 ml 10 ml Result Diagram: 12/14/17 0350 12/14/17 0350 Other Results Microbiology Date/Time Source Procedure Growth Status 12/11/17 17:00 Sputum Endotracheal Gram Stain - Final Complete 12/11/17 17:00 Sputum Culture - Final S. Aureus Mrsa Complete Imaging Last 48 hours Impressions Thoracic Spine MRI 12/11/17 0000 Signed Impressions: CONCLUSION: 1. There is an anterior extra-axial fluid collection extending from the dens t o T2. This was present on the prior cervical spine and does not appear signific ant changed. This could be an anterior epidural or subdural abscess. 2. Increased signal throughout the epidural space throughout the thoracic spin e extending from the T2-T3 through the T11-T12 level concerning for abscess thr oughout this region. 3. Mild disc changes at the T3-T4 through T6-T7 levels as described above. Sig nificant stenosis from the disc changes is not seen. 4. Multiple pulmonary masses, areas of consolidation, and effusions. Lumbar Spine MRI 12/11/17 0000 Signed Impressions: CONCLUSION: 1. Abnormal signal seen throughout the epidural space. This concerning for inf ection. 2. More focal anterior epidural collections at the L4 and L5 and upper sacral regions concerning for abscess. 3. There is severe narrowing of the thecal sac beginning at the L1 level and e xtending into the sacrum. CSF is seen not seen around the nerve roots throughou t these levels. 4. Increased signal within the L5-S1 disc space anteriorly. The posterior dis c margin appears intact. This is nonspecific. Early infection cannot be ruled o ut. There is no bony destruction. Cervical Spine MRI 12/11/17 0000 Signed Impressions: CONCLUSION: 1. Status post placement of anterior cervical fusion plate at the C5-C7 levels . 2. Continued anterior fluid collection likely related to an epidural versus valles bdural collection. This extends from the tip of the dens to the T2 level. This looks similar to the prior exam. There is mild narrowing of the thecal sac thro ughout however there is CSF seen around the cord throughout. 3. Continued prevertebral fluid/inflammatory change. Chest X-Ray 12/10/17 0500 Signed Impressions: CONCLUSION: Stable single view the chest. ET tube and nasogastric both good position. Diffu se airspace disease and pleural effusions are unchanged Last Impressions Cervical Spine MRI 12/07/17 0000 Signed Impressions: CONCLUSION: 1. Suspected discitis involving the C6-C7 level and possibly the C5-C6 level. 2. Large anterior epidural abscess extending from the tip of the dens down to the T2 level this causes moderate to severe stenosis throughout the mid and low er cervical and upper thoracic spine. 3. Anterior prevertebral abscess seen to the left of midline extending from th e C5 through T1 levels. There is fairly extensive prevertebral soft tissue swel ling. Chest CT 12/06/179 Signed Impressions: CONCLUSION: 1. There are numerous patchy infiltrates throughout the lungs left greater eliana n right. Some of the infiltrates are borderline cavitary particularly in the le ft upper lobe. Moderate-sized bilateral pleural effusions. The scattered pulmon gus disease is new since February 2017 Chest X-Ray 12/06/17 1959 Signed Impressions: CONCLUSION: Interval development of bilateral effusions and patchy airspace disease since A pril 2017. Renal Ultrasound 12/06/17 0000 Signed Impressions: CONCLUSION: 1. Both kidneys are echogenic suggesting chronic medical renal disease. Small cyst lower pole right kidney Objective Remarks GENERAL: Middle-age male who appears much older than stated age, lying in bed, intubated, sedated HEENT: Normocephalic. Atraumatic. Pupils equal, round, reactive, conjugate. Mucous membranes are moist NECK: Trachea is midline. There is no JVD. neck incision c/d/i with ARELIS drain with minimal sanguinous output. CHEST: Equal chest rise. PRVC. full support. left chest tube to suction. CARDIOVASCULAR: Normal rate, regular rhythm. Sinus by telemetry. ABDOMEN: Soft, nontender, nondistended. No guarding. MUSCULOSKELETAL: Pulses 2+. No peripheral edema. NEUROLOGICAL: Sedated, orally intubated on mechanical ventilation. Not responding to painful stimuli currently. SKIN: Multiple abrasions and abscesses in various stages of healing, the largest is on the right forearm which is approximately 3 cm x 2 cm and has recently been incised and drained with packing still in the wound. Track mcclain present. A/P Assessment and Plan Assessment: 47-year-old male with history of IV drug abuse and prior endocarditis presents with severe sepsis and large cervical epidural abscess with evidence of new and worsening acute upper and lower extremity myelopathy. Now s/p cervical decompression and cage fusion. remains critically ill. continue antibiotics and wean mechanical ventilation as tolerated. unsafe to extubate until mental status improves. Plan by systems: Neurologic: Cervical epidural abscess and discitis s/p cervical decompression, cage fusion 12/07 IV opiate abuse IV amphetamine abuse Acute metabolic encephalopathy secondary to severe sepsis Acute post-operative pain Frequent neurochecks Neurosurgery: Dr. Chu gabapentin 300mg po q8h tizanidine 4mg po q12h for pain oxycodone scheduled for post-op pain continue propofol for goal RASS -2. Started fentanyl GTT on 12/12 for discomfort Starting Versed gtt. on 12/14 for better sedation. added precedex. MRI spine done on 12/11 shows persistent abscess along the cervical/thoracic and lumbar spine. This was discussed with ID and Dr. Brandon. Dr. Brandon does not feel patient is a surgical candidate due to extent of abscess formation and recommend palliative care consult as prognosis is extremely poor. Respiratory: Acute hypoxic and hypercarbic respiratory failure likely significant component of neuromuscular weakness from cervical epidural abscess prior to surgery: FVC 700mL, NIF -20. Increased FiO2 80%, peep +14. On PRBC mode mechanical ventilation tidal volume 600, rate 22 Left-sided pigtail catheter remains in place, no air leak noted. wean fio2 for goal spo2 > 90% vent bundle hob elevated nebs Cardiovascular: Severe sepsis Afib with RVR HTN Continue amiodarone drip. On nicardipine gtt., IV Lopressor. half NS at 60 cc/h Renal: Acute kidney injury Secondary to sepsis and bacteremia continue beaver continue mivf daily bmp -- Strict I/Os FEN/GI: Acute intravascular volume depletion- resolving. Acute protein calorie malnutrition: Severe NGT tube feeds ICU electrolyte protocol Daily BMP Maintenance IV fluids bowel regimen Heme/ID: Severe sepsis Gram-positive bacteremia: MRSA Cervical epidural abscess/discitis History of endocarditis 2d echo: negative for vegetations. TIM will not change medical management at this time. Vancomycin with pharmacy dosing cefepime IV ID added Teflaro IV on 12/11 due to worsening MRI. ID consult: Dr. Szymanski following 1 unit PRBCs being transfused on 12/14 for hemoglobin 6.7 Endocrine: -- SSI if required for hyperglycemia Prophylaxis: GI Prophylaxis Pepcid DVT Prophylaxis -- SCDs Holding pharmacologic DVT prophylaxis in the setting of neurosurgery Lines: Peripheral IVs. Dispo: remain in ICU. Very critically ill and worsening acute myelopathy. unable to separate from mechanical ventilation at this time. Discussed with ID and discussed with neurosurgery Dr. Brandon. Dr. Brandon does not feel patient is a candidate for neurosurgical intervention due to extent of his abscess formation involving almost entire length of spine. He recommends consulting palliative care. Consulted palliative care service to assist with deciding goals of therapy. Prognosis appears poor. This patient remains critically ill with one or more organ systems which are or may become a threat to life. I have spent in excess of 30 minutes discontinuously in the care and management of this patient. This time is exclusive of procedures, and includes, but is not limited to, evaluation of the patient, review of the medical record, discussions with family, consultants, nursing staff, or respiratory therapy, and documentation in the medical record. Pieter Michel MD Dec 14, 2017 13:48
[2017-12-14] MEDS ORDERED: MIDAZOLAM HCL 2 MG/2 ML VIAL IV PUSH ONE (14:00)
[2017-12-14] MEDS: MIDAZOLAM 50 MG/50 ML INJ 50 ML IV PRN (14:25)
--- NOTE | 2017-12-14 14:25 | RADRPT ---
EXAM DATE: 12/14/2017 2:21 PM EDT AGE/SEX: 47 years / Male INDICATIONS: Follow up respiratory failure CLINICAL DATA: This is the patient's subsequent encounter. Patient reports that signs and symptoms h ave been present for 1 week and indicates a pain score of Nonresponsive. MEDICAL/SURGICAL HISTORY: Hypertension. endocarditis . cervical fusion COMPARISON: [facility] [place]ST [place], 12/10/2017. . FINDINGS: ET tube and nasogastric tube are in good position. Moderate interstitial edema persist in both lungs with minimal consolidation right base. Finds are improved in the interval. Heart remains minimally en larged. CONCLUSION: Improvement as above. Electronically signed by: Cleveland Knutson MD 12/14/2017 2:24 PM EDT
[2017-12-14] MEDS ORDERED: PHARMACY ORDERED LAB ONE (23:45)
[2017-12-15] VITALS (19 sets, daily range): BP systolic 125–146; BP diastolic 73–92; PULSE 51–58; RESP 22; TEMP 98.1–99; O2SAT 95–100
[2017-12-15] MEDS: PROPOFOL 1000 MG/100 ML IV PRN ×6 (00:04→18:48)
[2017-12-15] MEDS: METOPROLOL TARTRATE 5 MG/5 ML VIAL IV PUSH SCH ×4 (02:58→20:01)
[2017-12-15] MEDS: fentaNYL DRIP 250 ML IV PRN ×2 (03:25→13:51)
[2017-12-15] MEDS: AMIODARONE INJ 450 MG in SODIUM CHLOR 0.9% (EXCEL) INJ 241 ML IV PRN (03:26)
[2017-12-15] MEDS: SODIUM CHLOR 0.45% 1000 ML INJ 1,000 ML IV SCH ×2 (03:27→12:30)
[2017-12-15] MEDS: oxyCODONE HCL ORAL CONC 5 MG/0.25 ML SYRINGE PO SCH ×5 (03:28→20:00)
[2017-12-15] MEDS: CEFEPIME INJ 2,000 MG in SODIUM CHLORIDE 0.9% INJ 100 ML IV SCH ×2 (05:25→17:47)
[2017-12-15 05:43] LABS: CREATININE 1.22 MG/DL (0.60-1.30)
[2017-12-15] MEDS: CEFTAROLINE INJ 600 MG in SODIUM CHLORIDE 0.9% INJ 100 ML IV SCH ×3 (06:19→23:00)
[2017-12-15] MEDS: niCARdipine 25 MG/NS 250 ML Vial2Bag or IV room IV PRN ×6 (06:21→17:48)
[2017-12-15] MEDS: CHLORHEXIDINE 0.12% (ORAL KIT) 15 ML CUP OROPHARYNG SCH ×2 (08:47→20:00)
[2017-12-15] MEDS: SODIUM CHLORIDE 0.9% FLUSH 10 ML FLUSH IV FLUSH SCH ×2 (08:47→21:00)
[2017-12-15] MEDS: GABAPENTIN 250 MG/5 ML UDC NG SCH ×3 (08:48→17:46)
[2017-12-15] MEDS: DOCUSATE SODIUM 50 MG/SENNA 8.6 MG TAB PO SCH ×2 (08:48→21:00)
[2017-12-15] MEDS: ENOXAPARIN SODIUM 30 MG/0.3 ML SYRINGE SQ SCH (08:48)
[2017-12-15] MEDS: REMOVE OLD LIDOCAINE PATCH T-DERMAL SCH ×2 (08:49→21:00)
[2017-12-15] MEDS: LIDOCAINE HCL 5% PATCH T-DERMAL SCH (08:49)
--- NOTE | 2017-12-15 09:13 | HHI.CCPN ---
Subjective Remarks/Hospital Course Hospital Course: 47yM with prior IVDA and prior endocarditis who presented with right forearm abscess and severe sepsis. admitted under obs for additional work-up. complained of persistent and severe neck pain for which MRI c-spine was ordered and demonstrates large cervical epidural abscess and discitis. I was called to evaluate the patient. he is significantly weak in his upper and lower extremities and has severe back pain. I discussed the case with radiology, infectious disease, and neurosurgery. made NPO and plan for emergent cervical decompression and cage fusion. discussed with ID: will change zosyn to cefepime for FLAT SURFACER penetrance. continue to follow up cultures and changed 2d echo to "urgent" from "routine" to rule out vegetations. patient is altered from severe sepsis and no additional history is obtainable. ROS is very limited, but + for arm/leg weakness, neck pain, back pain. subjective: 12/08: off vasopressors this AM. remains intubated. TTE being performed to eval for endocarditis. s/p cervical interbody cage fusion and diskectomy. 12/09: continues to fail SBT for somnolence and encephalopathy. today he is agitated, but not following commands. still with + blood cultures despite therapy. Cr rising, likely HUMAIRA secondary to ATN. patient clinically appears adequately hydrated with adequate uop. 12/10: Remains sedated, orally intubated on mechanical ventilation. 12/11: Remains sedated, orally intubated on mechanical ventilation. MRI spine shows persistent fluid collection involving C-spine, thoracic spine and lumbar spine which is not amenable to neurosurgical intervention per discussion with Dr. Brandon. 12/12: Remains sedated, orally intubated on mechanical ventilation. Febrile. Starting fentanyl drip as patient appears uncomfortable. 12/13: Sedated, orally intubated on mechanical ventilation. Converted to sinus rhythm from A. fib last night 12/14: Sedated, orally intubated on mechanical ventilation. Tachypneic. Receiving 1 unit PRBCs for hemoglobin 6.7 this morning. Adjusted vent settings. On propofol/fentanyl gtt. Adding Versed gtt. for sedation. 12/15: Sedated, orally intubated on mechanical ventilation. Remains in sinus rhythm. Objective Vital Signs Date Time Temp Pulse Resp B/P (MAP) Pulse Ox O2 Delivery O2 Flow Rate FiO2 12/15/17 08:10 100 45 12/15/17 07:00 Mechanical Ventilator 12/15/17 06:21 59 137/84 12/15/17 04:00 98.4 22 Intake and Output 12/15/17 12/15/17 12/16/17 08:00 16:00 00:00 Intake Total 3008.5 ml Output Total 660 ml Balance 2348.5 ml Result Diagram: 12/15/17 0500 12/15/17 0500 Imaging Last 48 hours Impressions Thoracic Spine MRI 12/11/17 0000 Signed Impressions: CONCLUSION: 1. There is an anterior extra-axial fluid collection extending from the dens t o T2. This was present on the prior cervical spine and does not appear signific ant changed. This could be an anterior epidural or subdural abscess. 2. Increased signal throughout the epidural space throughout the thoracic spin e extending from the T2-T3 through the T11-T12 level concerning for abscess thr oughout this region. 3. Mild disc changes at the T3-T4 through T6-T7 levels as described above. Sig nificant stenosis from the disc changes is not seen. 4. Multiple pulmonary masses, areas of consolidation, and effusions. Lumbar Spine MRI 12/11/17 0000 Signed Impressions: CONCLUSION: 1. Abnormal signal seen throughout the epidural space. This concerning for inf ection. 2. More focal anterior epidural collections at the L4 and L5 and upper sacral regions concerning for abscess. 3. There is severe narrowing of the thecal sac beginning at the L1 level and e xtending into the sacrum. CSF is seen not seen around the nerve roots throughou t these levels. 4. Increased signal within the L5-S1 disc space anteriorly. The posterior dis c margin appears intact. This is nonspecific. Early infection cannot be ruled o ut. There is no bony destruction. Cervical Spine MRI 12/11/17 0000 Signed Impressions: CONCLUSION: 1. Status post placement of anterior cervical fusion plate at the C5-C7 levels . 2. Continued anterior fluid collection likely related to an epidural versus valles bdural collection. This extends from the tip of the dens to the T2 level. This looks similar to the prior exam. There is mild narrowing of the thecal sac thro ughout however there is CSF seen around the cord throughout. 3. Continued prevertebral fluid/inflammatory change. Chest X-Ray 12/10/17 0500 Signed Impressions: CONCLUSION: Stable single view the chest. ET tube and nasogastric both good position. Diffu se airspace disease and pleural effusions are unchanged Last Impressions Cervical Spine MRI 12/07/17 0000 Signed Impressions: CONCLUSION: 1. Suspected discitis involving the C6-C7 level and possibly the C5-C6 level. 2. Large anterior epidural abscess extending from the tip of the dens down to the T2 level this causes moderate to severe stenosis throughout the mid and low er cervical and upper thoracic spine. 3. Anterior prevertebral abscess seen to the left of midline extending from th e C5 through T1 levels. There is fairly extensive prevertebral soft tissue swel ling. Chest CT 12/06/172158 Signed Impressions: CONCLUSION: 1. There are numerous patchy infiltrates throughout the lungs left greater eliana n right. Some of the infiltrates are borderline cavitary particularly in the le ft upper lobe. Moderate-sized bilateral pleural effusions. The scattered pulmon gus disease is new since February 2017 Chest X-Ray 12/06/171958 Signed Impressions: CONCLUSION: Interval development of bilateral effusions and patchy airspace disease since A pril 2017. Renal Ultrasound 12/06/17 0000 Signed Impressions: CONCLUSION: 1. Both kidneys are echogenic suggesting chronic medical renal disease. Small cyst lower pole right kidney Objective Remarks GENERAL: Middle-age male who appears much older than stated age, lying in bed, intubated, sedated HEENT: Normocephalic. Atraumatic. Pupils equal, round, reactive, conjugate. Mucous membranes are moist NECK: Trachea is midline. There is no JVD. neck incision c/d/i with ARELIS drain with minimal sanguinous output. CHEST: Equal chest rise. PRVC. full support. left chest tube to suction. CARDIOVASCULAR: Normal rate, regular rhythm. Sinus by telemetry. ABDOMEN: Soft, nontender, nondistended. No guarding. MUSCULOSKELETAL: Pulses 2+. No peripheral edema. NEUROLOGICAL: Sedated, orally intubated on mechanical ventilation. Not responding to painful stimuli currently. SKIN: Multiple abrasions and abscesses in various stages of healing, the largest is on the right forearm which is approximately 3 cm x 2 cm and has recently been incised and drained with packing still in the wound. Track mcclain present. A/P Assessment and Plan Assessment: 47-year-old male with history of IV drug abuse and prior endocarditis presents with severe sepsis and large cervical epidural abscess with evidence of new and worsening acute upper and lower extremity myelopathy. Now s/p cervical decompression and cage fusion. remains critically ill. continue antibiotics and wean mechanical ventilation as tolerated. unsafe to extubate until mental status improves. Plan by systems: Neurologic: Cervical epidural abscess and discitis s/p cervical decompression, cage fusion 12/07 IV opiate abuse IV amphetamine abuse Acute metabolic encephalopathy secondary to severe sepsis Acute post-operative pain Frequent neurochecks Neurosurgery: Dr. Chu gabapentin 300mg po q8h tizanidine 4mg po q12h for pain oxycodone scheduled for post-op pain continue propofol for goal RASS -2. Started fentanyl GTT on 12/12 for discomfort Starting Versed gtt. on 12/14 for better sedation. added precedex. MRI spine done on 12/11 shows persistent abscess along the cervical/thoracic and lumbar spine. This was discussed with ID and Dr. Brandon. Dr. Brandon does not feel patient is a surgical candidate due to extent of abscess formation and recommend palliative care consult as prognosis is extremely poor. Respiratory: Acute hypoxic and hypercarbic respiratory failure likely significant component of neuromuscular weakness from cervical epidural abscess prior to surgery: FVC 700mL, NIF -20. Increased FiO2 80%, peep +14. On PRBC mode mechanical ventilation tidal volume 600, rate 22 Left-sided pigtail catheter remains in place, no air leak noted. wean fio2 for goal spo2 > 90% vent bundle hob elevated nebs Cardiovascular: Severe sepsis Afib with RVR HTN Switch from amiodarone drip to amiodarone via NG tube on 12/15. On nicardipine gtt., IV Lopressor. half NS at 60 cc/h Renal: Acute kidney injury Secondary to sepsis and bacteremia continue beaver continue mivf daily bmp -- Strict I/Os FEN/GI: Acute intravascular volume depletion- resolving. Acute protein calorie malnutrition: Severe NGT tube feeds ICU electrolyte protocol Daily BMP Maintenance IV fluids bowel regimen Heme/ID: Severe sepsis Gram-positive bacteremia: MRSA Cervical epidural abscess/discitis History of endocarditis 2d echo: negative for vegetations. TIM will not change medical management at this time. Vancomycin with pharmacy dosing cefepime IV ID added Teflaro IV on 12/11 due to worsening MRI. ID consult: Dr. Szymanski following 1 unit PRBCs being transfused on 12/14 for hemoglobin 6.7 Endocrine: -- SSI if required for hyperglycemia Prophylaxis: GI Prophylaxis Pepcid DVT Prophylaxis -- SCDs Holding pharmacologic DVT prophylaxis in the setting of neurosurgery Lines: Peripheral IVs. Dispo: remain in ICU. Very critically ill and worsening acute myelopathy. unable to separate from mechanical ventilation at this time. Discussed with ID and discussed with neurosurgery Dr. Brandon. Dr. Brandon does not feel patient is a candidate for neurosurgical intervention due to extent of his abscess formation involving almost entire length of spine. He recommends consulting palliative care. Consulted palliative care service to assist with deciding goals of therapy. Prognosis appears poor. This patient remains critically ill with one or more organ systems which are or may become a threat to life. I have spent in excess of 30 minutes discontinuously in the care and management of this patient. This time is exclusive of procedures, and includes, but is not limited to, evaluation of the patient, review of the medical record, discussions with family, consultants, nursing staff, or respiratory therapy, and documentation in the medical record. Pieter Michel MD Dec 15, 2017 09:13
--- NOTE | 2017-12-15 09:48 | HHI.NSPN ---
(Aftab Newman) History Chief Complaint: Unable to obtain due to patient's clinical condition. (Aftab Newman) Interval History 12/07: 47-year-old male with a history of IV drug abuse. Multiple admissions since March 2017 for several areas of cutaneous, soft tissue abscess formation , sepsis. Recent admission September 2017 for antecubital abscesses. Presents to the emergency department 12/06/2017 with generalized fatigue, abdominal pain, productive cough. Now complains of neck pain. Positive progressive numbness, dysesthesia upper extremities with quadriparesis noted today. He went emergently to the operating room for a C5-6 and C6-7 ACDF and evacuation of a cervical epidural and intradural abscess. Post-operatively the patient was admitted to the ISC unit for further care and monitoring. 12/08: The patient is intubated and mechanically ventilated when seen this morning. He had propofol infusing for sedation. Nursing reports that she was not able to obtain a temperature on the patient this morning and she increased the ambient temperature. An hour later his temp was 94.1. She placed warm blankets on him and an external warming blanket. His temp when seen was 97.5. Upon evaluation he had movement of the right foot to noxious stimulation. There was questionable movement of the left toes. He had no response with the upper extremities. He is noted to have a purplish rash to the distal lower extremities. Also the left pupil was slightly larger than the right and both were non-reactive. Breath sounds were decreased on the left. 12/09: When seen this morning the patient is agitated and moving his head about. His sedation has been on hold per Nursing. He is intubated and on CPAP/ PSV. He was did move the upper extremities and left lower to command and after that moved them spontaneously. No movement was noted to the right lower. 12/10: This morning the patient is lethargic but is sedated with dexmedetomidine and propofol. He remains intubated and is on PRVC A/C settings. He moved the right upper extremity to noxious stimulation to the left side extremities, but he had no response with any extremity to noxious stimulation applied to it. The pupils were unequal and questionably reactive. Nursing reports that he is to go for his MRI scans of the spine later today. She also said the patient's sedation was resumed due to his agitation and elevated systolic blood pressure. 12/11: Intubated, sedated. Cervical collar in place. 12/12: remains intubated, sedates. Repeat MRI of spine yesterday reviewed by Dr. Brandon. 12/13: intubated and well sedated, reported to minimally withdraw in lower extremities. 12/14: The patient remains lethargic. He is still intubated and mechanically ventilated with propofol infusing for sedation. He did move the right foot some to command and also spontaneously. He did have some response of the right-sided extremities to noxious stimulation but not the left. Nursing reported some right lower extremity movement to command as well. She reported that when his sedation is weaned down the patient becomes agitated. Patient being transfused for haemoglobin level of 6.7 this morning. 12/15: Today the patient is comatose when seen, but he does have propofol infusing for sedation. He continues to be intubated and mechanically ventilated. He had no motor response to any stimulation. The pupils were equal but sluggish with a mild corneal reflex bilaterally. He remains at maximum sedation with propofol due to his agitation when weaned down per Nursing. (Aftab Newman) Exam Results 12/13/17 12/13/17 12/14/17 12/14/17 12/15/17 12/15/17 06: 18: 06 18 18: Intake Total 1907 ml 1696 ml 1120 ml 2299 ml 3468.5 ml 460 ml Output Total 1590 ml 1820 ml 2000 ml 1800 ml 660 ml Balance 317 ml -124 ml -880 ml 499 ml 2808.5 ml 460 ml Intake Oral 0 ml 0 ml IV Total 200 ml 700 ml 710 ml 2937.5 ml 460 ml Tube Feeding 1287 ml 596 ml 720 ml 599 ml 531 ml Packed Cells 400 ml Blood Product IV Normal Saline Flush 40 ml Tube Irrigant 400 ml 450 ml Other 420 ml 400 ml 100 ml Output Urine Total 1550 ml 1800 ml 2000 ml 1800 ml 650 ml Stool Total 0 ml Chest Tube Drainage Total 40 ml 20 ml 0 ml 0 ml 10 ml # Bowel Movements 0 0 0 Vital Signs Date Time Temp Pulse Resp B/P (MAP) Pulse Ox O2 Delivery O2 Flow Rate FiO2 12/15/17 08:10 100 45 12/15/17 07:00 100 Mechanical Ventilator 55 12/15/17 06:21 59 137/84 12/15/17 06:00 58 12/15/17 04:01 100 65 12/15/17 04:00 98.4 52 22 132/86 (101) 100 12/15/17 04:00 52 12/15/17 04:00 55 12/15/17 03:26 54 134/86 12/15/17 02:00 53 12/15/17 01:12 100 65 12/15/17 00:30 56 150/103 12/15/17 00:00 75 12/15/17 00:00 98.1 54 22 140/88 (105) 100 12/15/17 00:00 54 12/14/17 23:49 56 147/93 12/14/17 22:00 56 12/14/17 21:00 56 127/73 12/14/17 20:30 56 129/73 12/14/17 20:00 75 12/14/17 20:00 99.1 58 22 133/71 (91) 100 12/14/17 20:00 58 133/71 12/14/17 20:00 58 12/14/17 19:26 100 75 12/14/17 19:00 100 Mechanical Ventilator 75 12/14/17 18:28 61 135/79 12/14/17 18:04 22 12/14/17 18:00 60 12/14/17 16:37 68 142/85 12/14/17 16:00 68 12/14/17 16:00 75 12/14/17 16:00 99.3 64 22 140/82 (101) 82 12/14/17 15:41 97 75 12/14/17 14:21 100 Ventilator 75 12/14/17 14:16 70 140/80 12/14/17 14:00 70 12/14/17 12:50 100 85 12/14/17 12:22 98 55 12/14/17 12:00 99.5 72 32 157/86 (109) 82 12/14/17 12:00 55 12/14/17 12:00 72 6/25/18 11:42 82 169/99 12/14/17 10:00 90 12/14/17 09:32 98 55 12/14/17 08:50 98.9 68 32 148/90 100 12/14/17 08:45 98.8 76 22 153/88 99 12/14/17 08:07 98.8 75 24 167/99 99 12/14/17 08:04 77 12/14/17 08:00 97.8 76 22 153/77 (102) 99 12/14/17 08:00 55 12/14/17 07:44 75 134/80 12/14/17 07:15 58 129/77 12/14/17 07:15 100 Mechanical Ventilator 55 12/14/17 06:00 58 12/14/17 04:00 58 12/14/17 04:00 97.8 58 24 136/82 (100) 98 12/14/17 04:00 55 12/14/17 03:53 100 55 12/14/17 02:00 63 12/14/17 00:53 59 135/76 12/14/17 00:00 63 12/14/17 00:00 98.8 59 22 100 12/14/17 00:00 40 12/13/17 23:38 100 55 12/13/17 22:00 59 12/13/17 21:00 100 55 12/13/17 20:48 61 145/81 12/13/17 20:00 40 12/13/17 20:00 97.8 60 22 142/76 (98) 100 12/13/17 20:00 62 12/13/17 19:00 100 Mechanical Ventilator 55 12/13/17 18:00 67 12/13/17 17:20 67 160/94 12/13/17 16:12 100 55 12/13/17 16:00 55 12/13/17 16:00 98.3 68 22 158/88 (111) 100 12/13/17 16:00 68 12/13/17 15:01 65 150/89 12/13/17 14:00 68 12/13/17 12:00 99.0 66 22 144/85 (104) 100 12/13/17 12:00 66 12/13/17 12:00 55 12/13/17 11:12 99 55 12/13/17 10:00 74 12/13/17 09:06 97 55 12/13/17 08:00 55 12/13/17 08:00 99.8 94 24 175/93 (120) 97 12/13/17 08:00 91 12/13/17 07:00 98 Mechanical Ventilator 55 12/13/17 06:00 104 12/13/17 04:00 50 12/13/17 04:00 64 12/13/17 04:00 98.4 64 22 152/88 (109) 98 12/13/17 03:50 100 40 12/13/17 02:00 59 12/13/17 01:29 59 138/76 12/13/17 00:00 50 12/13/17 00:00 59 12/13/17 00:00 98.9 58 22 139/81 (100) 100 12/12/17 23:50 100 50 12/12/17 22:00 61 12/12/17 20:35 100 Mechanical Ventilator 60 12/12/17 20:35 100 60 12/12/17 20:00 98.9 62 22 148/88 (108) 100 12/12/17 20:00 62 12/12/17 20:00 60 12/12/17 20:00 98.9 62 22 148/88 (108) 100 12/12/17 19:00 100 Mechanical Ventilator 70 12/12/17 18:30 61 146/87 12/12/17 18:07 61 12/12/17 16:00 70 12/12/17 16:00 98.7 60 22 146/89 (108) 100 12/12/17 16:00 60 12/12/17 15:41 100 70 12/12/17 15:00 98.7 60 22 146/89 (108) 12/12/17 14:03 61 136/73 12/12/17 14:00 62 12/12/17 12:57 98.7 73 25 98 12/12/17 12:35 108 143/100 12/12/17 12:14 131 12/12/17 12:00 70 12/12/17 12:00 99.7 130 22 148/92 (110) 97 12/12/17 11:22 95 70 12/12/17 11:00 99.7 128 22 153/94 (113) 12/12/17 10:15 150 12/12/17 10:00 107 12/12/17 09:40 150 167/105 (Aftab Newman) Physical Examination GENERAL: Comatose, intubated & mechanically ventilated. Propofol 50 mcg/kg/min infusing for sedation. Vasoactive drips infusing for blood pressure. No apparent distress. SKIN: Anterior neck surgical incision well approximated w/intact steri-strips, dressing intact. Purpura to both distal lower extremities. HEENT: Normocephalic, atraumatic. Pupils 3 mm, sluggish. Orally intubated. OGT. NECK: [place] J cervical collar in place. Intact dressing to anterior surgical incision. No JVD. Trachea midline. MUSCULOSKELETAL: No evident clubbing or deformities. No response to any stimulation. NEUROLOGICAL: Comatose but sedated. No eye opening to any stimulation. Pupils 3 mm, sluggish. Mild corneal reflex bilaterally. Nonverbal, intubated. No cough reflex to suctioning. Did not follow any commands. No extremity response to any stimulation. (Aftab Newman) Lab, Micro, Other Results Recent Impressions Chest X-Ray 12/14/17 0000 Signed Impressions: CONCLUSION: Improvement as above. Laboratory Tests Test 12/13/17 04:44 12/14/17 03:50 12/14/17 23:50 12/15/17 05:00 White Blood Count 17.9 TH/MM3 14.1 TH/MM3 Red Blood Count 2.76 MIL/MM3 2.59 MIL/MM3 Hemoglobin 7.2 GM/DL 6.7 GM/DL 8.0 GM/DL Hematocrit 22.7 % 21.6 % 25.0 % Mean Corpuscular Volume 82.3 FL 83.1 FL Mean Corpuscular Hemoglobin 26.2 PG 26.0 PG Mean Corpuscular Hemoglobin Concent 31.9 % 31.2 % Red Cell Distribution Width 17.2 % 17.2 % Platelet Count 122 TH/MM3 122 TH/MM3 Mean Platelet Volume 8.7 FL 9.2 FL Prothrombin Time 11.5 SEC 11.4 SEC Prothromb Time International Ratio 1.1 RATIO 1.1 RATIO Activated Partial Thromboplast Time 28.7 SEC 28.8 SEC Blood Urea Nitrogen 45 MG/DL 40 MG/DL Creatinine 1.18 MG/DL 1.09 MG/DL 1.22 MG/DL Random Glucose 112 MG/DL 100 MG/DL Total Protein 7.3 GM/DL 6.9 GM/DL Albumin 1.2 GM/DL 1.1 GM/DL Calcium Level 8.0 MG/DL 7.8 MG/DL Alkaline Phosphatase 97 U/L 84 U/L Aspartate Amino Transf (AST/SGOT) 19 U/L 17 U/L Alanine Aminotransferase (ALT/SGPT) 11 U/L 12 U/L Total Bilirubin 0.3 MG/DL 0.3 MG/DL Sodium Level 154 MEQ/L 151 MEQ/L Potassium Level 4.4 MEQ/L 4.1 MEQ/L Chloride Level 123 MEQ/L 119 MEQ/L Carbon Dioxide Level 22.9 MEQ/L 23.5 MEQ/L Anion Gap 8 MEQ/L 9 MEQ/L Estimat Glomerular Filtration Rate 66 ML/MIN 72 ML/MIN 63 ML/MIN Vancomycin Level Trough 23.0 MCG/ML (Aftab Newman) Medical Decision Making Impression and Plan Impression: 1. Extensive cervical and upper thoracic anterior epidural abscess with significant canal and cord compromise. 2. C5-6 and C6-7 discitis. Significant destruction of the C6 vertebral body with osteomyelitis 3. History of IV drug abuse 4. History of bacterial endocarditis Postoperative Diagnosis: 1. Cervical epidural abscess 2. Cervical intradural abscess Patient remains critical. He continues to be sedated due to agitation. He had no motor response to any stimulation. Pupils equal but sluggish w/mild corneal reflex bilaterally. No cough reflex. Prognosis guarded. Past 24 hrs: 99.5 T max. Bradycardiac this morning. SBP elevated yesterday morning. Reviewed labs for today. Improvement in haemoglobin level to 8.0. Decrease in renal function. Abscess, blood & sputum cultures all positive for methicillin resistant Staphylococcus aureus. MRI cervical spine demonstrated s/p C5-C7 ACDF; there is a continued anterior fluid collection, epidural vs subdural collection, extending from the tip of the dens to the T2 level, similar to prior exam; mild thecal sac narrowing throughout w/CSF seen around the cord; continued prevertebral fluid/ inflammatory change. MRI thoracic spine demonstrated an anterior extra-axial fluid collection extending from the dens to T2, does not appear significant changed, possible anterior epidural or subdural abscess; increased signal throughout the thoracic spine epidural space from T2-T3 through T11-T12 levels concerning for abscess; mild disc changes at T3-T4 through T6-T7 levels w/significant stenosis , disc changes not seen. Multiple pulmonary masses, areas of consolidation, and effusions. MRI lumbar spine demonstrated abnormal signal throughout the epidural space, concerning for infection; more focal anterior epidural collections at L4 & L5 and upper sacral regions concerning for abscess; severe thecal sac narrowing at the L1 level and extending into the sacrum; there is no significant CSF seen around the nerve roots; increased signal within the L5-S1 disc space anteriorly, posterior disc margin appears intact which is nonspecific and early infection cannot be ruled out but there is no bony destruction. POD #7 () s/p: 1. C5-6 and C6-7 anterior cervical discectomy, evacuation of cervical epidural and intradural abscess. 2. C5-6 and C6-7 anterior interbody fusion, allograft bone 3. C5-7 anterior cervical instrumentation ARELIS drain d/c'd . Plan: Primary & critical care management per Director Social. Neuro checks. Wean sedation & ventilation as appropriate. [place] cervical collar at all times. Monitor ARELIS drain output. Mobilise patient w/assistance when appropriate. Physical & Occupational Therapy eval & tx. (Aftab Newman) Attending Statement The exam, history, and the medical decision-making described in the above note were completed with the assistance of the mid-level provider. I reviewed and agree with the findings presented. I attest that I had a [id number] encounter with the patient on the same day, and personally performed and documented my assessment and findings in the medical record. Patient remains intubated and sedated. Remains on amiodarone, nicardipine. Continuing antibiotics per infectious disease. MRI scan reveals further thoracolumbar epidural abscess. Questionable role for further surgical intervention given patient's extensive infectious disease including pulmonary lesions and overall poor prognosis (Ryan Chu MD) Aftab Newman Dec 15, 2017 09:48 Ryan Chu MD Dec 15, 2017 19:44
[2017-12-15] MEDS: MIDAZOLAM 50 MG/50 ML INJ 50 ML IV PRN (12:24)
--- NOTE | 2017-12-15 12:36 | HHI.IDPN ---
Subjective Subjective Remarks Patient is a 47-year-old male, with known history of active IV drug use, presented to the hospital complaining of an infection in his right forearm were he had injected about 3 days ago. He also has had some subjective complaints of fever and chills. Patient apparently also has been having problem with pain in the neck area that goes to his shoulder worse on the left side than on the right side, as well as left-sided chest pain. He denies any sore throat or any respiratory complaint as far as cough or congestion. Has not had any nausea or vomiting. He is also has some lower rib cage pain. Denies any urinary complaints. On presentation he was found to have an abscess in his right forearm, and had an I&D done. CT of the chest is showing some infiltrates as well as some cavitary lesions and some round lesions. Chest x-ray showing some bilateral infiltrates. His creatinine was also elevated, and renal ultrasound did not show any obstruction, and possibly has some findings of medical renal disease. 2 blood cultures done on admission are now reported as growing gram- positive cocci in pairs and clusters. Patient's drug screen is positive for amphetamines and opiates. 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 He has had multiple infections in his upper extremity related to injections from his IV drug use. The last admission for infection in his arm was September 2017. He had an echo done at that time which did not show any vegetation in the mitral valve. Infectious disease consultation has been requested to evaluate the patient. Notes reviewed Pippa rodríguez D/W RN On the vent All blood cultures with MRSA Intraop Cx with MRSA. BP okay, not on pressors. S/P1. C5-6 and C6-7 anterior cervical discectomy, evacuation of cervical epidural and intradural abscess. 2. C5-6 and C6-7 anterior interbody fusion, allograft bone 3. C5-7 anterior cervical instrumentation Imaging studies showing extensive infection down to thoracic and lumbar spine Antibiotics Vancomycin Teflaro Current Medications Medications (Trade) Dose Ordered Sig/Brennon Route Start Time Stop Time Status Last Admin Pharmacy Profile Note 0 ml @ 0 mls/hr UNSCH OTHER 12/06/17 22:30 (NS Flush) 2 ml UNSCH PRN IV FLUSH 12/06/17 22:30 (NS Flush) 2 ml BID IV FLUSH 12/07/17 09:00 12/15/17 08:47 (Tylenol) 650 mg Q4H PRN PO 12/06/17 22:30 12/07/17 07:51 (Zofran Odt) 4 mg Q6H PRN PO 12/06/17 22:30 (Narcan Inj) 0.4 mg UNSCH PRN IV PUSH 12/06/17 22:30 (Pearl-Colace) 1 tab BID PO 12/07/17 09:00 12/15/17 08:48 (Milk Of Magnesia Liq) 30 ml Q12H PRN PO 12/06/17 22:30 12/14/17 09:49 (Senokot) 17.2 mg Q12H PRN PO 12/06/17 22:30 (Dulcolax Supp) 10 mg DAILY PRN RECTAL 12/06/17 22:30 (Lactulose Liq) 30 ml DAILY PRN PO 12/06/17 22:30 12/14/17 23:50 (Lidoderm 5% Patch.12 Hr) 1 patch DAILY T-DERMAL 12/07/17 10:15 12/15/17 08:49 (Lovenox Inj) 30 mg DAILY SQ 12/07/17 11:00 12/15/17 08:48 Miscellaneous Information 1 Q12HR T-DERMAL 12/07/17 21:00 12/15/17 08:49 Cefepime HCl 2000 mg/Sodium Chloride 100 ml @ 200 mls/hr Q12H IV 12/07/17 18:00 12/15/17 05:25 (Dilaudid Pf Inj) 1 mg Q4H PRN IV 12/07/17 20:30 12/12/17 07:47 Phenylephrine HCl 40 mg/Dextrose 500 ml @ 30 mls/hr TITRATE PRN IV 12/08/17 02:30 12/08/17 01:45 (Brethine Inj) 1 mg UNSCH PRN SQ 12/08/17 02:30 Propofol 100 ml @ 24 mls/hr TITRATE PRN IV 12/08/17 02:45 12/15/17 12:24 (Neurontin Liq) 300 mg TID NG 12/08/17 13:00 12/15/17 08:48 (Zanaflex) 4 mg Q12HR PO 12/08/17 10:30 12/15/17 08:48 (Roxicodone Intensol Liq) 20 mg Q4HR PO 12/08/17 12:00 12/15/17 08:47 Nicardipine HCl 25 mg/Sodium Chloride 260 ml @ 52 mls/hr TITRATE PRN IV 12/09/17 18:00 12/15/17 06:21 (Peridex 0.12% Liq) 15 ml BID@0800,2000 OROPHARYNG 12/09/17 20:00 12/15/17 08:47 Dexmedetomidine HCl 200 mcg/ Sodium Chloride 50 ml @ 4.28 mls/hr TITRATE PRN IV 12/09/17 19:00 12/11/17 16:15 (Trandate Inj) 10 mg Q4H PRN IV PUSH 12/10/17 11:00 12/12/17 09:39 Ceftaroline Fosamil 600 mg/ Sodium Chloride 100 ml @ 100 mls/hr Q8H IV 12/11/17 15:00 12/15/17 06:19 Fentanyl Citrate 250 ml @ 5 mls/hr TITRATE PRN IV 12/12/17 09:45 12/15/17 03:25 Amiodarone HCl 450 mg/Sodium Chloride 250 ml @ 33.33 mls/ hr Q7H31M PRN IV 12/12/17 10:08 12/15/17 18:00 12/15/17 03:26 (Lopressor Inj) 5 mg Q6H IV PUSH 12/12/17 11:00 12/14/17 16:38 Sodium Chloride 1,000 ml @ 60 mls/hr [id number] IV 12/13/17 10:30 12/15/17 03:27 Vancomycin HCl 1750 mg/Sodium Chloride 517.5 ml @ 250 mls/hr Q18H IV 12/13/17 12:00 Future Hold 12/14/17 23:48 Midazolam HCl 50 ml @ 2 mls/hr TITRATE PRN IV 12/14/17 14:00 12/15/17 12:24 (Cordarone) 400 mg DAILY@2200 PO 12/16/17 22:00 Lines Line with no evidence of infection Past Medical History Hypertension: Untreated. IV drug abuser Skin abscesses related to IVDU S/P Rx MV IE Past Surgical History Bilateral wrist abscess incision and drainage/washout Allergies: Coded Allergies: No Known Allergies (Unverified , 6/17/18) Objective . Vital Signs Date Time Temp Pulse Resp B/P (MAP) Pulse Ox O2 Delivery O2 Flow Rate FiO2 12/15/17 11:52 99 40 12/15/17 08:10 100 45 12/15/17 08:00 55 12/15/17 07:00 100 Mechanical Ventilator 55 12/15/17 06:21 59 137/84 12/15/17 06:00 58 12/15/17 04:01 100 65 12/15/17 04:00 98.4 52 22 132/86 (101) 100 12/15/17 04:00 52 12/15/17 04:00 55 12/15/17 03:26 54 134/86 12/15/17 02:00 53 12/15/17 01:12 100 65 12/15/17 00:30 56 150/103 12/15/17 00:00 75 12/15/17 00:00 98.1 54 22 140/88 (105) 100 12/15/17 00:00 54 12/14/17 23:49 56 147/93 12/14/17 22:00 56 12/14/17 21:00 56 127/73 12/14/17 20:30 56 129/73 12/14/17 20:00 75 12/14/17 20:00 99.1 58 22 133/71 (91) 100 12/14/17 20:00 58 133/71 12/14/17 20:00 58 12/14/17 19:26 100 75 12/14/17 19:00 100 Mechanical Ventilator 75 12/14/17 18:28 61 135/79 12/14/17 18:04 22 12/14/17 18:00 60 12/14/17 16:37 68 142/85 12/14/17 16:00 68 12/14/17 16:00 75 12/14/17 16:00 99.3 64 22 140/82 (101) 82 12/14/17 15:41 97 75 12/14/17 14:21 100 Ventilator 75 12/14/17 14:16 70 140/80 12/14/17 14:00 70 12/14/17 12:50 100 85 12/15/17 12/15/17 12/16/17 15:00 23:00 07:00 Intake Total 200 ml Balance 200 ml IV Total 200 ml . Laboratory Tests Test 12/14/17 03:50 12/15/17 05:00 White Blood Count 14.1 TH/MM3 Red Blood Count 2.59 MIL/MM3 Hemoglobin 6.7 GM/DL 8.0 GM/DL Hematocrit 21.6 % 25.0 % Mean Corpuscular Volume 83.1 FL Mean Corpuscular Hemoglobin 26.0 PG Mean Corpuscular Hemoglobin Concent 31.2 % Red Cell Distribution Width 17.2 % Platelet Count 122 TH/MM3 Mean Platelet Volume 9.2 FL Laboratory Tests Test 12/14/17 03:50 12/15/17 05:00 Blood Urea Nitrogen 40 MG/DL Creatinine 1.09 MG/DL 1.22 MG/DL Random Glucose 100 MG/DL Total Protein 6.9 GM/DL Albumin 1.1 GM/DL Calcium Level 7.8 MG/DL Alkaline Phosphatase 84 U/L Aspartate Amino Transf (AST/SGOT) 17 U/L Alanine Aminotransferase (ALT/SGPT) 12 U/L Total Bilirubin 0.3 MG/DL Sodium Level 151 MEQ/L Potassium Level 4.1 MEQ/L Chloride Level 119 MEQ/L Carbon Dioxide Level 23.5 MEQ/L Anion Gap 9 MEQ/L Estimat Glomerular Filtration Rate 72 ML/MIN 63 ML/MIN Imaging Last Impressions Chest X-Ray 12/08/17 Signed Impressions: CONCLUSION: Some air overlying the left pleura laterally suspicious for lower lobe pneumoth orax. Bilateral pleural effusions. ET tube in good position. Cervical Spine X-Ray 12/08/17 Signed Impressions: CONCLUSION: Inter vertebral discs are in place Cervical Spine MRI 12/07/17 Signed Impressions: CONCLUSION: 1. Suspected discitis involving the C6-C7 level and possibly the C5-C6 level. 2. Large anterior epidural abscess extending from the tip of the dens down to the T2 level this causes moderate to severe stenosis throughout the mid and low er cervical and upper thoracic spine. 3. Anterior prevertebral abscess seen to the left of midline extending from th e C5 through T1 levels. There is fairly extensive prevertebral soft tissue swel ling. Chest CT 12/06/172158 Signed Impressions: CONCLUSION: 1. There are numerous patchy infiltrates throughout the lungs left greater eliana n right. Some of the infiltrates are borderline cavitary particularly in the le ft upper lobe. Moderate-sized bilateral pleural effusions. The scattered pulmon gus disease is new since February 2017 Renal Ultrasound 12/06/17 0000 Signed Impressions: CONCLUSION: 1. Both kidneys are echogenic suggesting chronic medical renal disease. Small cyst lower pole right kidney Physical Exam GENERAL: Sedated on the vent, NAD SKIN: Cool and dry. Has embolic lesions in BUE and BLE. Edematous HEAD: Atraumatic. Normocephalic. No temporal wasting, or tenderness. EYES: Impact conjunctiva. No petechia or hemorrhage. Pupils equal, round and reactive to light. Extraocular movements full and intact. No scleral icterus. No injection or drainage. EARS, NOSE AND THROAT: Nose without bleeding or purulent nasal discharge. No sinus tenderness. Mucous membranes pink and moist. No oral lesions noted. NECK: Trachea midline. Supple and no meningeal signs. No swelling noted in neck CARDIOVASCULAR: Regular rate and rhythm. No murmurs, rubs or gallops heard RESPIRATORY: Clear to auscultation. Decreased breath sounds at bases ABDOMEN: Soft, mildly distended, no reaction to palpation. Bowel sounds present and normoactive. EXTREMITIES: No clubbing, cyanosis, or edema. No joint effusions. No calf tenderness. Has embolic lesions BLE and BUE. Has multiple wounds in LUE, with some slough and surrounding erythema. RUE - area of abscess with packing, improving redness NEUROLOGICAL: Opens eyes, did not follow commands for me PSYCHIATRIC: Unable to assess LINE: No evidence of infection Assessment & Plan Remarks IMPRESSION Sepsis present on admission MRSA sepsis Cervical epidural abscess - with extension to thoracic and lumbar spine Likely with endocarditis, clinically - echo negative RUE abscess Likely with endocarditis - has IVDU, likely septic lung emboli, has embolic lesions in BLE Renal insufficiency, due to infection, ?embolic Respiratory failure RECOMMENDATION Continue Vanco IV (target 15-20) Continue Teflaro IV q8hrs dosing (cannot use Genta IV as acute renal failure) Stop Cefepime IV Dissemination and worsening of infection despite antibiotics is concerning. 2D ECHO is negative. TIM may not be safe given cervical spine infection concern for stability and will not change the management. Prognosis guarded. Consider palliative care to help guide goals of therapy as Trach and PEG seem imminent. palliative team speaking with brother - patient has DNR status; brother to think about further care D/W RN Bakariayuga,Mony G MD Dec 15, 2017 12:36
--- NOTE | 2017-12-15 13:33 | HHI.HCPN ---
Reason for visit a. To assist with evaluation and management of symptoms including: Dyspnea, pain b. To assist medical decision maker(s) with: better understanding of current medical conditions; weighing benefits/burdens of medical treatment options; making medical treatment decisions. . Subjective/Interval History Mr. Duncan is a 47 year old male with a history of IV drug abuse and endocarditis who presented to [facility] ED on 12/06/2017. Upon presentation, he was found to have an abscess in his right forearm and had an I&D. Of note, the patient was treated for mitral valve endocarditis last year. Echocardiogram on showed no evidence of vegetation; left ventricular systolic function was normal with an estimated EF of 60-65%. MRI of the cervical spine revealed a large epidural abscess and discitis, and the patient was taken to the OR for cervical decompression and cage fusion. Follow-up visit for symptom management and clarification of medical goals. Patient remains intubated on mechanical ventilation. Sedated on Propofol, Fentanyl and Versed drip; will not attempt sedation vacation today secondary to agitation. Also remains on Amiodarone and Cardene drip. Sputum and blood cultures growing MRSA. Intraoperative cultures with MRSA as well. Imaging studies show extensive infection down the cervical, thoracic and lumbar spine. Patient on Vancomycin and Teflaro; infectious disease following. Afebrile. H/H stable at 8.0/25.0 after being transfused yesterday for H/H of 6.7/21.6 Palliative care spoke to the patient's father who has opted out of healthcare proxy decision making. He states the patient was never and does not have children. His only reported sibling, Mando, lives locally and is willing to act in the role of healthcare proxy decision making. Palliative care met with Mando and patient's friend, Niko. An update was provided on the patient' s current clinical condition. Mando states that he tried to help his little brother but he "checked out about a year ago." We discussed aggressive versus comfort focus medical treatment goals; reviewed the process of cardiopulmonary resuscitation in detail. Mando feels that his brother has been through enough ; he asked that in the event the patient's heart stop he be allowed to pass peacefully and naturally at that time. He does not think he would want to proceed with tracheostomy and PEG tube, but would like to think about that difficult decision overnight. . Family/friend interactions See interval history . Advance Directives Advance Directive Specifics Documented care wishes: None available. . Objective Vital Signs Date Time Temp Pulse Resp B/P (MAP) Pulse Ox O2 Delivery O2 Flow Rate FiO2 12/15/17 11:52 99 40 12/15/17 08:10 100 45 12/15/17 08:00 55 12/15/17 07:00 100 Mechanical Ventilator 55 12/15/17 06:21 59 137/84 12/15/17 06:00 58 12/15/17 04:01 100 65 12/15/17 04:00 98.4 52 22 132/86 (101) 100 12/15/17 04:00 52 12/15/17 04:00 55 12/15/17 03:26 54 134/86 12/15/17 02:00 53 12/15/17 01:12 100 65 12/15/17 00:30 56 150/103 12/15/17 00:00 75 12/15/17 00:00 98.1 54 22 140/88 (105) 100 12/15/17 00:00 54 12/14/17 23:49 56 147/93 12/14/17 22:00 56 12/14/17 21:00 56 127/73 12/14/17 20:30 56 129/73 12/14/17 20:00 75 12/14/17 20:00 99.1 58 22 133/71 (91) 100 12/14/17 20:00 58 133/71 12/14/17 20:00 58 12/14/17 19:26 100 75 12/14/17 19:00 100 Mechanical Ventilator 75 12/14/17 18:28 61 135/79 12/14/17 18:04 22 12/14/17 18:00 60 12/14/17 16:37 68 142/85 12/14/17 16:00 68 12/14/17 16:00 75 12/14/17 16:00 99.3 64 22 140/82 (101) 82 12/14/17 15:41 97 75 12/14/17 14:21 100 Ventilator 75 12/14/17 14:16 70 140/80 12/14/17 14:00 70 Intake & Output 12/15/17 12/15/17 07:00 19:00 Intake Total 3468.5 ml 200 ml Output Total 660 ml Balance 2808.5 ml 200 ml IV Total 2937.5 ml 200 ml Tube Feeding 531 ml Output Urine Total 650 ml Chest Tube Drainage Total 10 ml . Physical Exam CONSTITUTIONAL/GENERAL: This is an adequately nourished patient, currently intubated on mechanical ventilator TUBES/LINES/DRAINS: PIV 2, left subclavian central line, left-sided chest tube , Mixon catheter, OGT, SCDs SKIN: No jaundice, rashes, or lesions. Ecchymoses on upper extremities. Skin temperature appropriate. Not diaphoretic. HEAD: Atraumatic. Normocephalic. EYES: Pupils round and reactive. No scleral icterus. No injection or drainage. Fundi not examined. ENT: Nose without bleeding or purulent drainage. NECK: Trachea midline. Supple, nontender. No palpable thyroid enlargement or nodularity. CARDIOVASCULAR: Regular rate and rhythm. No JVD. Peripheral pulses symmetric. RESPIRATORY/CHEST: Intubated on mechanical ventilation. Equal chest rise. PRVC , full support. Sided chest tube to suction GASTROINTESTINAL: Abdomen soft, non-tender, nondistended. No guarding. Bowel sounds present. GENITOURINARY: Without palpable bladder distension. Mixon catheter in place. MUSCULOSKELETAL: Extremities without clubbing, cyanosis, or edema. No mottling or clubbing. LYMPHATICS: No palpable cervical or supraclavicular adenopathy. NEUROLOGICAL: Sedated on Propofol, Fentanyl and Versed. Does not withdraw to painful stimuli PSYCHIATRIC: Unable to assess given current clinical condition. . Diagnostic Tests Laboratory Laboratory Tests Test 12/13/17 04:44 12/14/17 03:50 12/14/17 23:50 12/15/17 05:00 White Blood Count 17.9 TH/MM3 (4.0-11.0) 14.1 TH/MM3 (4.0-11.0) Red Blood Count 2.76 MIL/MM3 (4.50-5.90) 2.59 MIL/MM3 (4.50-5.90) Hemoglobin 7.2 GM/DL (13.0-17.0) 6.7 GM/DL (13.0-17.0) 8.0 GM/DL (13.0-17.0) Hematocrit 22.7 % (39.0-51.0) 21.6 % (39.0-51.0) 25.0 % (39.0-51.0) Mean Corpuscular Volume 82.3 FL (80.0-100.0) 83.1 FL (80.0-100.0) Mean Corpuscular Hemoglobin 26.2 PG (27.0-34.0) 26.0 PG (27.0-34.0) Mean Corpuscular Hemoglobin Concent 31.9 % (32.0-36.0) 31.2 % (32.0-36.0) Red Cell Distribution Width 17.2 % (11.6-17.2) 17.2 % (11.6-17.2) Platelet Count 122 TH/MM3 (150-450) 122 TH/MM3 (150-450) Mean Platelet Volume 8.7 FL (7.0-11.0) 9.2 FL (7.0-11.0) Prothrombin Time 11.5 SEC (9.8-11.6) 11.4 SEC (9.8-11.6) Prothromb Time International Ratio 1.1 RATIO 1.1 RATIO Activated Partial Thromboplast Time 28.7 SEC (24.3-30.1) 28.8 SEC (24.3-30.1) Blood Urea Nitrogen 45 MG/DL (7-18) 40 MG/DL (7-18) Creatinine 1.18 MG/DL (0.60-1.30) 1.09 MG/DL (0.60-1.30) 1.22 MG/DL (0.60-1.30) Random Glucose 112 MG/DL (74-106) 100 MG/DL (74-106) Total Protein 7.3 GM/DL (6.4-8.2) 6.9 GM/DL (6.4-8.2) Albumin 1.2 GM/DL (3.4-5.0) 1.1 GM/DL (3.4-5.0) Calcium Level 8.0 MG/DL (8.5-10.1) 7.8 MG/DL (8.5-10.1) Alkaline Phosphatase 97 U/L (45-117) 84 U/L (45-117) Aspartate Amino Transf (AST/SGOT) 19 U/L (15-37) 17 U/L (15-37) Alanine Aminotransferase (ALT/SGPT) 11 U/L (12-78) 12 U/L (12-78) Total Bilirubin 0.3 MG/DL (0.2-1.0) 0.3 MG/DL (0.2-1.0) Sodium Level 154 MEQ/L (136-145) 151 MEQ/L (136-145) Potassium Level 4.4 MEQ/L (3.5-5.1) 4.1 MEQ/L (3.5-5.1) Chloride Level 123 MEQ/L (98-107) 119 MEQ/L (98-107) Carbon Dioxide Level 22.9 MEQ/L (21.0-32.0) 23.5 MEQ/L (21.0-32.0) Anion Gap 8 MEQ/L (5-15) 9 MEQ/L (5-15) Estimat Glomerular Filtration Rate 66 ML/MIN (>89) 72 ML/MIN (>89) 63 ML/MIN (>89) Vancomycin Level Trough 23.0 MCG/ML (5.0-10.0) . Result Diagram: 12/15/17 0500 12/15/17 0500 Imaging Last 72 hours Impressions Chest X-Ray 12/14/17 0000 Signed Impressions: CONCLUSION: Improvement as above. . Procedures 12/08/17: Intubation/NGT 12/08/17: Right sided percutaneous pigtail tube thoracostomy 12/08/17: Left subclavian central line . Assessment and Plan Disease Oriented Problem List: (1) Renal insufficiency (2) HTN (hypertension) (3) Skin abscess (4) Abscess of right arm (5) Cellulitis of left arm (6) Abscess in epidural space of cervical spine Symptom Scale: (1) Dyspnea (2) Pain Pertinent Non-Medical Issues Psychosocial: Patient was born and raised in [place]. 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 Spiritual: Pending conversation with patient's family Legal: Ethical issues impacting care: No known ethical issues impacting care at this time. . Important Contacts Edy Duncan, father: [phone] Mando Duncan, brother: [phone] . Prognosis Patient is a known IV drug user with a history of endocarditis status post cervical decompression and cage fusion secondary to cervical epidural abscess and discitis. MRI spine done on 12/11/17 showing persistent abscess along the cervical/thoracic and lumbar spine. Patient is not a surgical candidate due to the extent of abscess formation. Prognosis is extremely poor. . Code Status: Full Code Plan * ALTERNATE CODE * Decision-making: Patient does not have capacity for medical decision-making at this time. Palliative care spoke to the patient's father who has opted out of healthcare proxy decision making. He states the patient was never and does not have children. His only reported sibling, Mando, lives locally and is willing to act in the role of healthcare proxy decision making. * Palliative care met with Mando and patient's friend, Niko. An update was provided on the patient's current clinical condition. Mando states that he tried to help his little brother but he "checked out about a year ago." We discussed aggressive versus comfort focus medical treatment goals; reviewed the process of cardiopulmonary resuscitation in detail. Mando feels that his brother has been through enough; he asked that in the event the patient's heart stop he be allowed to pass peacefully and naturally at that time. He does not think he would want to proceed with tracheostomy and PEG tube, but would like to think about that difficult decision overnight. * Discussed this patient with RN (Evelyn.) * Symptom management-pain: Multifactoral. Postoperative pain, infection/abscess , invasive lines, bedbound status, immobility, withdrawal. Patient is currently sedated on Fentanyl, Propofol and Versed. He is receiving oxycodone 20 mg q 4 hours ATC. PRN Dilaudid is available every 4 hours but has not been administered in the past 24 hours * Palliative care will continue to follow this patient throughout his hospitalization to establish trust, assist with symptom management and clarification of medical treatment goals. . Attestation To help prompt me to consider important information that might be impacting today's encounter and assessment, information from prior notes written by myself or my colleagues may have been "brought forward" into today's note. My signature on this note, however, is an attestation that I personally performed the exam, history, and/or decision-making noted today, and, unless otherwise indicated, the interactions with patient, family, and staff as well as the review of records all occurred today. I also attest that the listed assessment and stated plan reflect my best clinical judgment today based on the combination of historical information, prior notes, and today's exam/ interactions. When time spent is documented, it refers only to time spent today by the signer, or if indicated, combined time spent today by collaborating physician/nurse practitioner. . Katie Santana Dec 15, 2017 13:33
[2017-12-16] VITALS (17 sets, daily range): BP systolic 99–120; BP diastolic 56–70; PULSE 50–60; RESP 22; TEMP 97.4–99.3; O2SAT 92–100
[2017-12-16] MEDS: PROPOFOL 1000 MG/100 ML IV PRN ×6 (02:13→22:44)
[2017-12-16] MEDS: fentaNYL DRIP 250 ML IV PRN ×3 (02:14→17:54)
[2017-12-16] MEDS: oxyCODONE HCL ORAL CONC 5 MG/0.25 ML SYRINGE PO SCH ×7 (04:00→23:52)
[2017-12-16] MEDS: METOPROLOL TARTRATE 5 MG/5 ML VIAL IV PUSH SCH ×4 (05:00→23:00)
[2017-12-16] MEDS: SODIUM CHLOR 0.45% 1000 ML INJ 1,000 ML IV SCH ×2 (05:10→21:48)
[2017-12-16 05:51] LABS: AUTOMATED NEUTROPHIL # 13.9 TH/MM3 (1.8-7.7); BASOPHIL % 0.2 % (0.0-2.0); EOSINOPHIL # 0.1 TH/MM3 (0-0.4); EOSINOPHIL % 0.4 % (0.0-4.0); HEMATOCRIT 24.2 % (39.0-51.0); HEMOGLOBIN 7.7 GM/DL (13.0-17.0); LYMPH % 6.5 % (9.0-44.0); MEAN CELL VOLUME 85.1 FL (80.0-100.0); MEAN CORPUSCULAR HEMOGLOBIN 27.2 PG (27.0-34.0); MEAN PLATELET VOLUME 9.9 FL (7.0-11.0); MONO % 3.9 % (0.0-8.0); MONOCYTE # 0.6 TH/MM3 (0-0.9); PLATELET COUNT 133 TH/MM3 (150-450); RED BLOOD COUNT 2.84 MIL/MM3 (4.50-5.90); RED CELL DISTRIBUTION WIDTH 16.9 % (11.6-17.2); WHITE BLOOD COUNT 15.6 TH/MM3 (4.0-11.0)
[2017-12-16] MEDS: CEFEPIME INJ 2,000 MG in SODIUM CHLORIDE 0.9% INJ 100 ML IV SCH ×2 (06:00→17:35)
[2017-12-16 06:13] LABS: AST (GOT) 27 U/L (15-37); BICARBONATE 22.2 MEQ/L (21.0-32.0); BLOOD UREA NITROGEN 47 MG/DL (7-18); CHLORIDE 119 MEQ/L (98-107); CREATININE 1.51 MG/DL (0.60-1.30); GLOMERULAR FILTRATION RATE 49 ML/MIN (>89); GLUCOSE,RANDOM 101 MG/DL (74-106); SODIUM (NA) 149 MEQ/L (136-145)
[2017-12-16] MEDS: CEFTAROLINE INJ 600 MG in SODIUM CHLORIDE 0.9% INJ 100 ML IV SCH ×3 (06:13→23:52)
[2017-12-16 06:16] LABS: ALKALINE PHOSPHATASE 126 U/L (45-117); ALT (GPT) 10 U/L (12-78); RANDOM VANCOMYCIN 27.4 COMMENT; TOTAL BILIRUBIN ADULT 0.3 MG/DL (0.2-1.0); TOTAL PROTEIN 6.8 GM/DL (6.4-8.2)
[2017-12-16] MEDS: DOCUSATE SODIUM 50 MG/SENNA 8.6 MG TAB PO SCH ×2 (08:05→21:48)
[2017-12-16] MEDS: ENOXAPARIN SODIUM 30 MG/0.3 ML SYRINGE SQ SCH (08:05)
[2017-12-16] MEDS: LIDOCAINE HCL 5% PATCH T-DERMAL SCH (08:05)
[2017-12-16] MEDS: REMOVE OLD LIDOCAINE PATCH T-DERMAL SCH ×2 (08:06→21:48)
[2017-12-16] MEDS: CHLORHEXIDINE 0.12% (ORAL KIT) 15 ML CUP OROPHARYNG SCH ×2 (08:06→21:47)
[2017-12-16] MEDS: SODIUM CHLORIDE 0.9% FLUSH 10 ML FLUSH IV FLUSH SCH ×2 (08:06→21:48)
--- NOTE | 2017-12-16 08:07 | HHI.CCPN ---
Subjective Remarks/Hospital Course Hospital Course: 47yM with prior IVDA and prior endocarditis who presented with right forearm abscess and severe sepsis. admitted under obs for additional work-up. complained of persistent and severe neck pain for which MRI c-spine was ordered and demonstrates large cervical epidural abscess and discitis. I was called to evaluate the patient. he is significantly weak in his upper and lower extremities and has severe back pain. I discussed the case with radiology, infectious disease, and neurosurgery. made NPO and plan for emergent cervical decompression and cage fusion. discussed with ID: will change zosyn to cefepime for [employer] penetrance. continue to follow up cultures and changed 2d echo to "urgent" from "routine" to rule out vegetations. patient is altered from severe sepsis and no additional history is obtainable. ROS is very limited, but + for arm/leg weakness, neck pain, back pain. subjective: 12/08: off vasopressors this AM. remains intubated. TTE being performed to eval for endocarditis. s/p cervical interbody cage fusion and diskectomy. 12/09: continues to fail SBT for somnolence and encephalopathy. today he is agitated, but not following commands. still with + blood cultures despite therapy. Cr rising, likely HUMAIRA secondary to ATN. patient clinically appears adequately hydrated with adequate uop. 12/10: Remains sedated, orally intubated on mechanical ventilation. 12/11: Remains sedated, orally intubated on mechanical ventilation. MRI spine shows persistent fluid collection involving C-spine, thoracic spine and lumbar spine which is not amenable to neurosurgical intervention per discussion with Dr. Brandon. 12/12: Remains sedated, orally intubated on mechanical ventilation. Febrile. Starting fentanyl drip as patient appears uncomfortable. 12/13: Sedated, orally intubated on mechanical ventilation. Converted to sinus rhythm from A. fib last night 12/14: Sedated, orally intubated on mechanical ventilation. Tachypneic. Receiving 1 unit PRBCs for hemoglobin 6.7 this morning. Adjusted vent settings. On propofol/fentanyl gtt. Adding Versed gtt. for sedation. 12/15: Sedated, orally intubated on mechanical ventilation. Remains in sinus rhythm. 12/16: Sedated, orally intubated on mechanical ventilation. Objective Vital Signs Date Time Temp Pulse Resp B/P (MAP) Pulse Ox O2 Delivery O2 Flow Rate FiO2 12/16/17 07:00 96 Mechanical Ventilator 40 12/16/17 06:00 56 12/16/17 04:00 97.4 22 118/70 (86) Intake and Output 12/16/17 12/16/17 12/16/17 07:59 15:59 23:59 Intake Total 800 ml Output Total 570 ml Balance 230 ml Result Diagram: 12/16/17 0520 12/16/17 0520 Imaging Last 48 hours Impressions Thoracic Spine MRI 12/11/17 0000 Signed Impressions: CONCLUSION: 1. There is an anterior extra-axial fluid collection extending from the dens t o T2. This was present on the prior cervical spine and does not appear signific ant changed. This could be an anterior epidural or subdural abscess. 2. Increased signal throughout the epidural space throughout the thoracic spin e extending from the T2-T3 through the T11-T12 level concerning for abscess thr oughout this region. 3. Mild disc changes at the T3-T4 through T6-T7 levels as described above. Sig nificant stenosis from the disc changes is not seen. 4. Multiple pulmonary masses, areas of consolidation, and effusions. Lumbar Spine MRI 12/11/17 0000 Signed Impressions: CONCLUSION: 1. Abnormal signal seen throughout the epidural space. This concerning for inf ection. 2. More focal anterior epidural collections at the L4 and L5 and upper sacral regions concerning for abscess. 3. There is severe narrowing of the thecal sac beginning at the L1 level and e xtending into the sacrum. CSF is seen not seen around the nerve roots throughou t these levels. 4. Increased signal within the L5-S1 disc space anteriorly. The posterior dis c margin appears intact. This is nonspecific. Early infection cannot be ruled o ut. There is no bony destruction. Cervical Spine MRI 12/11/17 0000 Signed Impressions: CONCLUSION: 1. Status post placement of anterior cervical fusion plate at the C5-C7 levels . 2. Continued anterior fluid collection likely related to an epidural versus valles bdural collection. This extends from the tip of the dens to the T2 level. This looks similar to the prior exam. There is mild narrowing of the thecal sac thro ughout however there is CSF seen around the cord throughout. 3. Continued prevertebral fluid/inflammatory change. Chest X-Ray 12/10/17 0500 Signed Impressions: CONCLUSION: Stable single view the chest. ET tube and nasogastric both good position. Diffu se airspace disease and pleural effusions are unchanged Last Impressions Cervical Spine MRI 12/07/17 0000 Signed Impressions: CONCLUSION: 1. Suspected discitis involving the C6-C7 level and possibly the C5-C6 level. 2. Large anterior epidural abscess extending from the tip of the dens down to the T2 level this causes moderate to severe stenosis throughout the mid and low er cervical and upper thoracic spine. 3. Anterior prevertebral abscess seen to the left of midline extending from th e C5 through T1 levels. There is fairly extensive prevertebral soft tissue swel ling. Chest CT 12/06/172158 Signed Impressions: CONCLUSION: 1. There are numerous patchy infiltrates throughout the lungs left greater eliana n right. Some of the infiltrates are borderline cavitary particularly in the le ft upper lobe. Moderate-sized bilateral pleural effusions. The scattered pulmon gus disease is new since February 2017 Chest X-Ray 12/06/171958 Signed Impressions: CONCLUSION: Interval development of bilateral effusions and patchy airspace disease since A pril 2017. Renal Ultrasound 12/06/17 0000 Signed Impressions: CONCLUSION: 1. Both kidneys are echogenic suggesting chronic medical renal disease. Small cyst lower pole right kidney Objective Remarks GENERAL: Middle-age male who appears much older than stated age, lying in bed, intubated, sedated HEENT: Normocephalic. Atraumatic. Pupils equal, round, reactive, conjugate. Mucous membranes are moist NECK: Trachea is midline. There is no JVD. neck incision c/d/i with ARELIS drain with minimal sanguinous output. CHEST: Equal chest rise. PRVC. full support. left chest tube to suction. CARDIOVASCULAR: Normal rate, regular rhythm. Sinus by telemetry. ABDOMEN: Soft, nontender, nondistended. No guarding. MUSCULOSKELETAL: Pulses 2+. No peripheral edema. NEUROLOGICAL: Sedated, orally intubated on mechanical ventilation. Not responding to painful stimuli currently. SKIN: Multiple abrasions and abscesses in various stages of healing, the largest is on the right forearm which is approximately 3 cm x 2 cm and has recently been incised and drained with packing still in the wound. Track mcclain present. A/P Assessment and Plan Assessment: 47-year-old male with history of IV drug abuse and prior endocarditis presents with severe sepsis and large cervical epidural abscess with evidence of new and worsening acute upper and lower extremity myelopathy. Now s/p cervical decompression and cage fusion. remains critically ill. continue antibiotics and wean mechanical ventilation as tolerated. unsafe to extubate until mental status improves. Plan by systems: Neurologic: Cervical epidural abscess and discitis s/p cervical decompression, cage fusion 12/07 IV opiate abuse IV amphetamine abuse Acute metabolic encephalopathy secondary to severe sepsis Acute post-operative pain Frequent neurochecks Neurosurgery: Dr. Chu gabapentin 300mg po q8h tizanidine 4mg po q12h for pain oxycodone scheduled for post-op pain continue propofol for goal RASS -2. Started fentanyl GTT on 12/12 for discomfort Starting Versed gtt. on 12/14 for better sedation. added precedex. MRI spine done on 12/11 shows persistent abscess along the cervical/thoracic and lumbar spine. This was discussed with ID and Dr. Brandon. Dr. Brandon does not feel patient is a surgical candidate due to extent of abscess formation and recommend palliative care consult as prognosis is extremely poor. Respiratory: Acute hypoxic and hypercarbic respiratory failure likely significant component of neuromuscular weakness from cervical epidural abscess prior to surgery: FVC 700mL, NIF -20. Increased FiO2 80%, peep +14. On PRBC mode mechanical ventilation tidal volume 600, rate 22 Left-sided pigtail catheter remains in place, no air leak noted. wean fio2 for goal spo2 > 90% vent bundle hob elevated nebs Cardiovascular: Severe sepsis Afib with RVR HTN Switch from amiodarone drip to amiodarone via NG tube on 12/15. On nicardipine gtt., IV Lopressor. half NS at 60 cc/h Renal: Acute kidney injury Secondary to sepsis and bacteremia continue beaver continue mivf daily bmp -- Strict I/Os FEN/GI: Acute intravascular volume depletion- resolving. Acute protein calorie malnutrition: Severe NGT tube feeds ICU electrolyte protocol Daily BMP Maintenance IV fluids bowel regimen Heme/ID: Severe sepsis Gram-positive bacteremia: MRSA Cervical epidural abscess/discitis History of endocarditis 2d echo: negative for vegetations. TIM will not change medical management at this time. Vancomycin with pharmacy dosing cefepime IV ID added Teflaro IV on 12/11 due to worsening MRI. ID consult: Dr. Szymanski following 1 unit PRBCs being transfused on 12/14 for hemoglobin 6.7 Endocrine: -- SSI if required for hyperglycemia Prophylaxis: GI Prophylaxis Pepcid DVT Prophylaxis -- SCDs Holding pharmacologic DVT prophylaxis in the setting of neurosurgery Lines: Peripheral IVs. Dispo: remain in ICU. Very critically ill and worsening acute myelopathy. unable to separate from mechanical ventilation at this time. Patient brother is discussing options of palliative care service. Patient made alternate code. Prognosis extremely poor. Extensive spread of abscess along spinal cord despite antibiotics and patient is not a surgical candidate per neurosurgery. Brother is considering terminal wean. Discussed with ID and discussed with neurosurgery Dr. Brandon. Dr. Brandon does not feel patient is a candidate for neurosurgical intervention due to extent of his abscess formation involving almost entire length of spine. He recommends consulting palliative care. Consulted palliative care service to assist with deciding goals of therapy. Prognosis appears poor. This patient remains critically ill with one or more organ systems which are or may become a threat to life. I have spent in excess of 30 minutes discontinuously in the care and management of this patient. This time is exclusive of procedures, and includes, but is not limited to, evaluation of the patient, review of the medical record, discussions with family, consultants, nursing staff, or respiratory therapy, and documentation in the medical record. Pieter Michel MD Dec 16, 2017 08:07
[2017-12-16] MEDS: GABAPENTIN 250 MG/5 ML UDC NG SCH ×3 (08:52→17:34)
--- NOTE | 2017-12-16 11:16 | HHI.HCPN ---
Reason for visit a. To assist with evaluation and management of symptoms including: Dyspnea, pain b. To assist medical decision maker(s) with: better understanding of current medical conditions; weighing benefits/burdens of medical treatment options; making medical treatment decisions. . Subjective/Interval History Mr. Duncan is a 47 year old male with a history of IV drug abuse and endocarditis who presented to [facility] ED on 12/06/2017. Upon presentation, he was found to have an abscess in his right forearm and had an I&D. Of note, the patient was treated for mitral valve endocarditis last year. Echocardiogram on showed no evidence of vegetation; left ventricular systolic function was normal with an estimated EF of 60-65%. MRI of the cervical spine revealed a large epidural abscess and discitis, and the patient was taken to the OR for cervical decompression and cage fusion. Follow-up visit for symptom management and clarification of medical goals. Patient seen at 10:30am in [facility], room 1313. He remains intubated on mechanical ventilation. Sedated on Propofol, Fentanyl and Versed drip. Nicardipine drip currently being held. Follow-up chest x-ray on 12/14/2017 showed moderate interstitial edema persistent in both lungs with minimal consolidation in the right base. Findings are improved in this interval. Heart remains minimally enlarged. Afebrile. WBC increased from 14.1 to 15.6. Sputum and blood cultures growing MRSA. Intraoperative cultures with MRSA as well. Imaging studies show extensive infection down the cervical, thoracic and lumbar spine. Patient on Vancomycin and Teflaro; infectious disease following. Father opted out of healthcare proxy decision making yesterday 12/15/2017. Patient's only sibling, Mando, verbalized willingness to act in this role. Palliative care met with patient's brother yesterday 12/15/2017. He stated that he tried to help his little brother but he "checked out about a year ago." We discussed aggressive versus comfort focus medical treatment goals; reviewed the process of cardiopulmonary resuscitation in detail. Mando felt his brother has gone through enough; he asked that in the event the patient's heart stop he be allowed to pass peacefully and naturally at that time. CODE STATUS changed from ALTERNATE CODE; he is considering compassionate withdrawal of artificial life support but went to think about it overnight. Planned to meet with patient 's brother again today, message left on Mando's voicemail x 2. Awaiting return phone call. . Advance Directives Advance Directive Specifics Documented care wishes: None available. . Objective Vital Signs Date Time Temp Pulse Resp B/P (MAP) Pulse Ox O2 Delivery O2 Flow Rate FiO2 12/16/17 08:56 95 40 12/16/17 08:00 40 12/16/17 07:00 96 Mechanical Ventilator 40 12/16/17 07:00 53 108/60 12/16/17 06:00 56 12/16/17 04:19 98 40 12/16/17 04:00 40 12/16/17 04:00 58 12/16/17 04:00 97.4 54 22 118/70 (86) 99 12/16/17 02:00 54 12/16/17 00:00 97.4 53 22 120/70 (87) 100 12/16/17 00:00 55 12/16/17 00:00 40 12/15/17 23:01 100 40 12/15/17 22:00 54 12/15/17 21:00 22 12/15/17 20:00 53 12/15/17 20:00 40 12/15/17 20:00 98.2 54 22 138/79 (98) 100 12/15/17 19:23 100 40 12/15/17 19:00 100 Mechanical Ventilator 40 12/15/17 18:00 51 12/15/17 17:48 52 123/71 12/15/17 16:00 53 12/15/17 16:00 40 12/15/17 16:00 98.8 53 22 125/73 (90) 100 12/15/17 15:34 100 40 12/15/17 14:00 56 12/15/17 13:43 57 145/83 12/15/17 12:00 58 12/15/17 12:00 40 12/15/17 12:00 98.2 58 22 146/92 (110) 95 12/15/17 11:52 99 40 Intake & Output 12/16/17 12/16/17 07:00 19:00 Intake Total 900 ml 450 ml Output Total 570 ml Balance 330 ml 450 ml Intake Oral 0 ml IV Total 100 ml 450 ml Tube Feeding 400 ml Other 400 ml Output Urine Total 550 ml Stool Total 0 ml Chest Tube Drainage Total 20 ml . Physical Exam CONSTITUTIONAL/GENERAL: This is an adequately nourished patient, currently intubated on mechanical ventilator TUBES/LINES/DRAINS: PIV 2, left subclavian central line, left-sided chest tube , Mixon catheter, OGT, SCDs SKIN: No jaundice, rashes, or lesions. Ecchymoses on upper extremities. Scabbed areas on left forearm/wrist. Skin temperature appropriate. Not diaphoretic. HEAD: Atraumatic. Normocephalic. EYES: Pupils round and reactive, sluggish. No injection or drainage. Fundi not examined. ENT: Nose without bleeding or purulent drainage. NECK: Trachea midline. Supple, nontender. No palpable thyroid enlargement or nodularity. CARDIOVASCULAR: Regular rate and rhythm. No JVD. Peripheral pulses symmetric. RESPIRATORY/CHEST: Intubated on mechanical ventilation. Equal chest rise. PRVC , full support. Left-sided chest tube to suction GASTROINTESTINAL: Abdomen firm, non-tender. No guarding. Bowel sounds present. GENITOURINARY: Without palpable bladder distension. Mixon catheter in place, draining cloudy yellow urine MUSCULOSKELETAL: Extremities without clubbing or cyanosis. 3+ edema in feet and hands bilaterally. LYMPHATICS: No palpable cervical or supraclavicular adenopathy. NEUROLOGICAL: Sedated on Propofol, Fentanyl and Versed. Does not respond to verbal stimuli or withdraw to painful stimuli PSYCHIATRIC: Unable to assess given current clinical condition. . Diagnostic Tests Laboratory Laboratory Tests Test 12/14/17 03:50 12/14/17 23:50 12/15/17 05:00 12/16/17 05:20 White Blood Count 14.1 TH/MM3 (4.0-11.0) 15.6 TH/MM3 (4.0-11.0) Red Blood Count 2.59 MIL/MM3 (4.50-5.90) 2.84 MIL/MM3 (4.50-5.90) Hemoglobin 6.7 GM/DL (13.0-17.0) 8.0 GM/DL (13.0-17.0) 7.7 GM/DL (13.0-17.0) Hematocrit 21.6 % (39.0-51.0) 25.0 % (39.0-51.0) 24.2 % (39.0-51.0) Mean Corpuscular Volume 83.1 FL (80.0-100.0) 85.1 FL (80.0-100.0) Mean Corpuscular Hemoglobin 26.0 PG (27.0-34.0) 27.2 PG (27.0-34.0) Mean Corpuscular Hemoglobin Concent 31.2 % (32.0-36.0) 32.0 % (32.0-36.0) Red Cell Distribution Width 17.2 % (11.6-17.2) 16.9 % (11.6-17.2) Platelet Count 122 TH/MM3 (150-450) 133 TH/MM3 (150-450) Mean Platelet Volume 9.2 FL (7.0-11.0) 9.9 FL (7.0-11.0) Prothrombin Time 11.4 SEC (9.8-11.6) Prothromb Time International Ratio 1.1 RATIO Activated Partial Thromboplast Time 28.8 SEC (24.3-30.1) Blood Urea Nitrogen 40 MG/DL (7-18) 47 MG/DL (7-18) Creatinine 1.09 MG/DL (0.60-1.30) 1.22 MG/DL (0.60-1.30) 1.51 MG/DL (0.60-1.30) Random Glucose 100 MG/DL (74-106) 101 MG/DL (74-106) Total Protein 6.9 GM/DL (6.4-8.2) 6.8 GM/DL (6.4-8.2) Albumin 1.1 GM/DL (3.4-5.0) 1.0 GM/DL (3.4-5.0) Calcium Level 7.8 MG/DL (8.5-10.1) 8.0 MG/DL (8.5-10.1) Alkaline Phosphatase 84 U/L (45-117) 126 U/L (45-117) Aspartate Amino Transf (AST/SGOT) 17 U/L (15-37) 27 U/L (15-37) Alanine Aminotransferase (ALT/SGPT) 12 U/L (12-78) 10 U/L (12-78) Total Bilirubin 0.3 MG/DL (0.2-1.0) 0.3 MG/DL (0.2-1.0) Sodium Level 151 MEQ/L (136-145) 149 MEQ/L (136-145) Potassium Level 4.1 MEQ/L (3.5-5.1) 4.5 MEQ/L (3.5-5.1) Chloride Level 119 MEQ/L (98-107) 119 MEQ/L (98-107) Carbon Dioxide Level 23.5 MEQ/L (21.0-32.0) 22.2 MEQ/L (21.0-32.0) Anion Gap 9 MEQ/L (5-15) 8 MEQ/L (5-15) Estimat Glomerular Filtration Rate 72 ML/MIN (>89) 63 ML/MIN (>89) 49 ML/MIN (>89) Vancomycin Level Trough 23.0 MCG/ML (5.0-10.0) Neutrophils (%) (Auto) 89.0 % (16.0-70.0) Lymphocytes (%) (Auto) 6.5 % (9.0-44.0) Monocytes (%) (Auto) 3.9 % (0.0-8.0) Eosinophils (%) (Auto) 0.4 % (0.0-4.0) Basophils (%) (Auto) 0.2 % (0.0-2.0) Neutrophils # (Auto) 13.9 TH/MM3 (1.8-7.7) Lymphocytes # (Auto) 1.0 TH/MM3 (1.0-4.8) Monocytes # (Auto) 0.6 TH/MM3 (0-0.9) Eosinophils # (Auto) 0.1 TH/MM3 (0-0.4) Basophils # (Auto) 0.0 TH/MM3 (0-0.2) CBC Comment DIFF FINAL Differential Comment Random Vancomycin Level 27.4 COMMENT . Result Diagram: 12/16/17 0520 12/16/17 0520 Imaging Last 72 hours Impressions Chest X-Ray 12/14/17 0000 Signed Impressions: CONCLUSION: Improvement as above. . Procedures 12/08/17: Intubation/NGT 12/08/17: Right sided percutaneous pigtail tube thoracostomy 12/08/17: Left subclavian central line . Assessment and Plan Disease Oriented Problem List: (1) Renal insufficiency (2) HTN (hypertension) (3) Skin abscess (4) Abscess of right arm (5) Cellulitis of left arm (6) Abscess in epidural space of cervical spine Symptom Scale: (1) Dyspnea (2) Pain Pertinent Non-Medical Issues Psychosocial: Patient was born and raised in [place]. 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 Spiritual: Pending conversation with patient's family Legal: Patient does not have capacity for medical decision-making at this time. Palliative care spoke to the patient's father who has opted out of healthcare proxy decision making. He states the patient was never and does not have children. His only reported sibling, Mando, lives locally and is willing to act in the role of healthcare proxy decision making. Ethical issues impacting care: No known ethical issues impacting care at this time. . Important Contacts Edy Duncan, father: [phone] Manod Duncan, brother: [phone] . Prognosis Patient is a known IV drug user with a history of endocarditis status post cervical decompression and cage fusion secondary to cervical epidural abscess and discitis. MRI spine done on 12/11/17 showing persistent abscess along the cervical/thoracic and lumbar spine. Patient is not a surgical candidate due to the extent of abscess formation. Prognosis is extremely poor. . Code Status: Full Code Plan * ALTERNATE CODE- INTUBATION ONLY * Decision-making: Patient does not have capacity for medical decision-making at this time. Palliative care spoke to the patient's father who has opted out of healthcare proxy decision making. He states the patient was never and does not have children. His only reported sibling, Mando, lives locally and is willing to act in the role of healthcare proxy decision making. * Father opted out of healthcare proxy decision making yesterday 12/15/2017. Patient's only sibling, Mando, verbalized willingness to act in this role. Palliative care met with patient's brother yesterday 12/15/2017. He stated that he tried to help his little brother but he "checked out about a year ago." We discussed aggressive versus comfort focus medical treatment goals; reviewed the process of cardiopulmonary resuscitation in detail. Mando felt his brother has gone through enough; he asked that in the event the patient's heart stop he be allowed to pass peacefully and naturally at that time. CODE STATUS changed from ALTERNATE CODE; he is considering compassionate withdrawal of artificial life support but went to think about it overnight. Planned to meet with patient 's brother again today, message left on Mando's voicemail x 2. Awaiting return phone call. * Discussed this patient with RN (Evelyn) and Dr. Michel * Symptom management-pain: Multifactorial. Postoperative pain, infection/ abscess, invasive lines, bedbound status, immobility, withdrawal. Patient is currently sedated on Fentanyl, Propofol and Versed. He is receiving oxycodone 20 mg q 4 hours ATC. PRN Dilaudid is available every 4 hours but has not been administered in the past 24 hours * Palliative care will continue to follow this patient throughout his hospitalization to establish trust, assist with symptom management and clarification of medical treatment goals. . Attestation To help prompt me to consider important information that might be impacting today's encounter and assessment, information from prior notes written by myself or my colleagues may have been "brought forward" into today's note. My signature on this note, however, is an attestation that I personally performed the exam, history, and/or decision-making noted today, and, unless otherwise indicated, the interactions with patient, family, and staff as well as the review of records all occurred today. I also attest that the listed assessment and stated plan reflect my best clinical judgment today based on the combination of historical information, prior notes, and today's exam/ interactions. When time spent is documented, it refers only to time spent today by the signer, or if indicated, combined time spent today by collaborating physician/nurse practitioner. . Katie Santana Dec 16, 2017 11:16
--- NOTE | 2017-12-16 11:54 | HHI.NSPN ---
(Aftab Newman) History Chief Complaint: Unable to obtain due to patient's clinical condition. (Aftab Newman) Interval History 12/07: 47-year-old male with a history of IV drug abuse. Multiple admissions since March 2017 for several areas of cutaneous, soft tissue abscess formation , sepsis. Recent admission September 2017 for antecubital abscesses. Presents to the emergency department 12/06/2017 with generalized fatigue, abdominal pain, productive cough. Now complains of neck pain. Positive progressive numbness, dysesthesia upper extremities with quadriparesis noted today. He went emergently to the operating room for a C5-6 and C6-7 ACDF and evacuation of a cervical epidural and intradural abscess. Post-operatively the patient was admitted to the [facility] unit for further care and monitoring. 12/08: The patient is intubated and mechanically ventilated when seen this morning. He had propofol infusing for sedation. Nursing reports that she was not able to obtain a temperature on the patient this morning and she increased the ambient temperature. An hour later his temp was 94.1. She placed warm blankets on him and an external warming blanket. His temp when seen was 97.5. Upon evaluation he had movement of the right foot to noxious stimulation. There was questionable movement of the left toes. He had no response with the upper extremities. He is noted to have a purplish rash to the distal lower extremities. Also the left pupil was slightly larger than the right and both were non-reactive. Breath sounds were decreased on the left. 12/09: When seen this morning the patient is agitated and moving his head about. His sedation has been on hold per Nursing. He is intubated and on CPAP/ PSV. He was did move the upper extremities and left lower to command and after that moved them spontaneously. No movement was noted to the right lower. 12/10: This morning the patient is lethargic but is sedated with dexmedetomidine and propofol. He remains intubated and is on PRVC A/C settings. He moved the right upper extremity to noxious stimulation to the left side extremities, but he had no response with any extremity to noxious stimulation applied to it. The pupils were unequal and questionably reactive. Nursing reports that he is to go for his MRI scans of the spine later today. She also said the patient's sedation was resumed due to his agitation and elevated systolic blood pressure. 12/11: Intubated, sedated. Cervical collar in place. 12/12: remains intubated, sedates. Repeat MRI of spine yesterday reviewed by Dr. Brandon. 12/13: intubated and well sedated, reported to minimally withdraw in lower extremities. 12/14: The patient remains lethargic. He is still intubated and mechanically ventilated with propofol infusing for sedation. He did move the right foot some to command and also spontaneously. He did have some response of the right-sided extremities to noxious stimulation but not the left. Nursing reported some right lower extremity movement to command as well. She reported that when his sedation is weaned down the patient becomes agitated. Patient being transfused for haemoglobin level of 6.7 this morning. 12/15: Today the patient is comatose when seen, but he does have propofol infusing for sedation. He continues to be intubated and mechanically ventilated. He had no motor response to any stimulation. The pupils were equal but sluggish with a mild corneal reflex bilaterally. He remains at maximum sedation with propofol due to his agitation when weaned down per Nursing. 12/16: When seen the patient is comatose. Midazolam has been added to the propofol for sedation. He is intubated and mechanically ventilated. The pupils appeared nonreactive although there was a trace corneal reflex bilaterally. There was no motor response to any stimulation. His brother is considering withdrawal of life support per the Palliative Care notes. (Aftab Newman) Exam Results 12/14/17 12/14/17 12/15/17 12/15/17 12/16/17 12/16/17 06: 18:: 18 18: Intake Total 1120 ml 2299 ml 3468.5 ml 2399 ml 1000 ml 550 ml Output Total 2000 ml 1800 ml 660 ml 900 ml 570 ml Balance -880 ml 499 ml 2808.5 ml 1499 ml 430 ml 550 ml Intake Oral 0 ml 0 ml IV Total 710 ml 2937.5 ml 1810 ml 200 ml 550 ml Tube Feeding 720 ml 599 ml 531 ml 409 ml 400 ml Packed Cells 400 ml Blood Product IV Normal Saline Flush 40 ml Tube Irrigant 400 ml 450 ml Other 100 ml 180 ml 400 ml Output Urine Total 2000 ml 1800 ml 650 ml 900 ml 550 ml Stool Total 0 ml 0 ml Chest Tube Drainage Total 0 ml 0 ml 10 ml 0 ml 20 ml # Bowel Movements 0 0 Vital Signs Date Time Temp Pulse Resp B/P (MAP) Pulse Ox O2 Delivery O2 Flow Rate FiO2 12/16/17 08:56 95 40 12/16/17 08:00 40 12/16/17 07:00 96 Mechanical Ventilator 40 12/16/17 07:00 53 108/60 12/16/17 06:00 56 12/16/17 04:19 98 40 12/16/17 04:00 40 12/16/17 04:00 58 12/16/17 04:00 97.4 54 22 118/70 (86) 99 12/16/17 02:00 54 12/16/17 00:00 97.4 53 22 120/70 (87) 100 12/16/17 00:00 55 12/16/17 00:00 40 12/15/17 23:01 100 40 12/15/17 22:00 54 12/15/17 21:00 22 12/15/17 20:00 53 12/15/17 20:00 40 12/15/17 20:00 98.2 54 22 138/79 (98) 100 12/15/17 19:23 100 40 12/15/17 19:00 100 Mechanical Ventilator 40 12/15/17 18:00 51 12/15/17 17:48 52 123/71 12/15/17 16:00 53 12/15/17 16:00 40 12/15/17 16:00 98.8 53 22 125/73 (90) 100 12/15/17 15:34 100 40 12/15/17 14:00 56 12/15/17 13:43 57 145/83 12/15/17 12:00 58 12/15/17 12:00 40 12/15/17 12:00 98.2 58 22 146/92 (110) 95 12/15/17 11:52 99 40 12/15/17 10:00 56 12/15/17 08:10 100 45 12/15/17 08:00 99.0 56 22 131/81 (98) 100 12/15/17 08:00 56 12/15/17 08:00 55 12/15/17 07:00 100 Mechanical Ventilator 55 12/15/17 06:21 59 137/84 6 06:00 58 12/15/17 04:01 100 65 12/15/17 04:00 98.4 52 22 132/86 (101) 100 12/15/17 04:00 52 12/15/17 04:00 55 12/15/17 03:26 54 134/86 12/15/17 02:00 53 12/15/17 01:12 100 65 12/15/17 00:30 56 150/103 12/15/17 00:00 75 12/15/17 00:00 98.1 54 22 140/88 (105) 100 12/15/17 00:00 54 12/14/17 23:49 56 147/93 12/14/17 22:00 56 12/14/17 21:00 56 127/73 12/14/17 20:30 56 129/73 12/14/17 20:00 75 12/14/17 20:00 99.1 58 22 133/71 (91) 100 12/14/17 20:00 58 133/71 12/14/17 20:00 58 12/14/17 19:26 100 75 12/14/17 19:00 100 Mechanical Ventilator 75 12/14/17 18:28 61 135/79 12/14/17 18:00 60 12/14/17 16:37 68 142/85 12/14/17 16:00 68 12/14/17 16:00 75 12/14/17 16:00 99.3 64 22 140/82 (101) 82 12/14/17 15:41 97 75 6 14:21 100 Ventilator 75 12/14/17 14:16 70 140/80 6 14:00 70 12/14/17 12:50 100 85 12/14/17 12:22 98 55 6 12:00 99.5 72 32 157/86 (109) 82 18 12:00 55 12/14/17 12:00 72 6 11:42 82 169/99 6 10:00 90 618 09:32 98 55 12/14/17 08:50 98.9 68 32 148/90 100 12/14/17 08:45 98.8 76 22 153/88 99 12/14/17 08:07 98.8 75 24 167/99 99 12/14/17 08:04 77 12/14/17 08:00 97.8 76 22 153/77 (102) 99 12/14/17 08:00 55 12/14/17 07:44 75 134/80 12/14/17 07:15 58 129/77 12/14/17 07:15 100 Mechanical Ventilator 55 12/14/17 06:00 58 12/14/17 04:00 58 12/14/17 04:00 97.8 58 24 136/82 (100) 98 12/14/17 04:00 55 12/14/17 03:53 100 55 12/14/17 02:00 63 12/14/17 00:53 59 135/76 12/14/17 00:00 63 12/14/17 00:00 98.8 59 22 100 12/14/17 00:00 40 12/13/17 23:38 100 55 12/13/17 22:00 59 12/13/17 21:00 100 55 12/13/17 20:48 61 145/81 12/13/17 20:00 40 12/13/17 20:00 97.8 60 22 142/76 (98) 100 12/13/17 20:00 62 12/13/17 19:00 100 Mechanical Ventilator 55 12/13/17 18:00 67 12/13/17 17:20 67 160/94 12/13/17 16:12 100 55 12/13/17 16:00 55 12/13/17 16:00 98.3 68 22 158/88 (111) 100 12/13/17 16:00 68 12/13/17 15:01 65 150/89 12/13/17 14:00 68 12/13/17 12:00 99.0 66 22 144/85 (104) 100 12/13/17 12:00 66 12/13/17 12:00 55 (Aftab Newman) Physical Examination GENERAL: Comatose, intubated & mechanically ventilated. Propofol 50 mcg/kg/min & midazolam 2 mg/hr infusing for sedation. No apparent distress. SKIN: Anterior neck surgical incision well approximated w/intact steri-strips, dressing intact. Purpura to both distal lower extremities. HEENT: Normocephalic, atraumatic. Pupils 2 mm, nonreactive. Orally intubated. OGT. NECK: [place] cervical collar in place. Intact dressing to anterior surgical incision. No JVD. Trachea midline. MUSCULOSKELETAL: No evident clubbing or deformities. No response to any stimulation. NEUROLOGICAL: Comatose but sedated. No eye opening to any stimulation. Pupils 2 mm, nonreactive. Trace corneal reflex bilaterally. Nonverbal, intubated. No cough reflex to suctioning. Did not follow any commands. No extremity response to any stimulation. (Aftab Newman) Lab, Micro, Other Results Recent Impressions Chest X-Ray 12/14/17 0000 Signed Impressions: CONCLUSION: Improvement as above. Laboratory Tests Test 12/14/17 03:50 12/14/17 23:50 12/15/17 05:00 12/16/17 05:20 White Blood Count 14.1 TH/MM3 15.6 TH/MM3 Red Blood Count 2.59 MIL/MM3 2.84 MIL/MM3 Hemoglobin 6.7 GM/DL 8.0 GM/DL 7.7 GM/DL Hematocrit 21.6 % 25.0 % 24.2 % Mean Corpuscular Volume 83.1 FL 85.1 FL Mean Corpuscular Hemoglobin 26.0 PG 27.2 PG Mean Corpuscular Hemoglobin Concent 31.2 % 32.0 % Red Cell Distribution Width 17.2 % 16.9 % Platelet Count 122 TH/MM3 133 TH/MM3 Mean Platelet Volume 9.2 FL 9.9 FL Prothrombin Time 11.4 SEC Prothromb Time International Ratio 1.1 RATIO Activated Partial Thromboplast Time 28.8 SEC Blood Urea Nitrogen 40 MG/DL 47 MG/DL Creatinine 1.09 MG/DL 1.22 MG/DL 1.51 MG/DL Random Glucose 100 MG/DL 101 MG/DL Total Protein 6.9 GM/DL 6.8 GM/DL Albumin 1.1 GM/DL 1.0 GM/DL Calcium Level 7.8 MG/DL 8.0 MG/DL Alkaline Phosphatase 84 U/L 126 U/L Aspartate Amino Transf (AST/SGOT) 17 U/L 27 U/L Alanine Aminotransferase (ALT/SGPT) 12 U/L 10 U/L Total Bilirubin 0.3 MG/DL 0.3 MG/DL Sodium Level 151 MEQ/L 149 MEQ/L Potassium Level 4.1 MEQ/L 4.5 MEQ/L Chloride Level 119 MEQ/L 119 MEQ/L Carbon Dioxide Level 23.5 MEQ/L 22.2 MEQ/L Anion Gap 9 MEQ/L 8 MEQ/L Estimat Glomerular Filtration Rate 72 ML/MIN 63 ML/MIN 49 ML/MIN Vancomycin Level Trough 23.0 MCG/ML Neutrophils (%) (Auto) 89.0 % Lymphocytes (%) (Auto) 6.5 % Monocytes (%) (Auto) 3.9 % Eosinophils (%) (Auto) 0.4 % Basophils (%) (Auto) 0.2 % Neutrophils # (Auto) 13.9 TH/MM3 Lymphocytes # (Auto) 1.0 TH/MM3 Monocytes # (Auto) 0.6 TH/MM3 Eosinophils # (Auto) 0.1 TH/MM3 Basophils # (Auto) 0.0 TH/MM3 CBC Comment DIFF FINAL Differential Comment Random Vancomycin Level 27.4 COMMENT (Aftab Newman) Medical Decision Making Impression and Plan Impression: 1. Extensive cervical and upper thoracic anterior epidural abscess with significant canal and cord compromise. 2. C5-6 and C6-7 discitis. Significant destruction of the C6 vertebral body with osteomyelitis 3. History of IV drug abuse 4. History of bacterial endocarditis Postoperative Diagnosis: 1. Cervical epidural abscess 2. Cervical intradural abscess Patient continues to be critical. He is sedated due to agitation. He had no motor response to any stimulation. Pupils equal, nonreactive, w/mild corneal reflex bilaterally. No cough reflex. Prognosis poor. Past 24 hrs: 99.0 T max. Bradycardiac. Reviewed labs for today. Increase in leukocytosis & improvement in thrombocytosis from . Slight drop in haemoglobin level from yesterday. Sodium 149. Worsening renal function. Elevated alk phos. Abscess, blood & sputum cultures all positive for methicillin resistant Staphylococcus aureus. MRI cervical spine demonstrated s/p C5-C7 ACDF; there is a continued anterior fluid collection, epidural vs subdural collection, extending from the tip of the dens to the T2 level, similar to prior exam; mild thecal sac narrowing throughout w/CSF seen around the cord; continued prevertebral fluid/ inflammatory change. MRI thoracic spine demonstrated an anterior extra-axial fluid collection extending from the dens to T2, does not appear significant changed, possible anterior epidural or subdural abscess; increased signal throughout the thoracic spine epidural space from T2-T3 through T11-T12 levels concerning for abscess; mild disc changes at T3-T4 through T6-T7 levels w/significant stenosis , disc changes not seen. Multiple pulmonary masses, areas of consolidation, and effusions. MRI lumbar spine demonstrated abnormal signal throughout the epidural space, concerning for infection; more focal anterior epidural collections at L4 & L5 and upper sacral regions concerning for abscess; severe thecal sac narrowing at the L1 level and extending into the sacrum; there is no significant CSF seen around the nerve roots; increased signal within the L5-S1 disc space anteriorly, posterior disc margin appears intact which is nonspecific and early infection cannot be ruled out but there is no bony destruction. POD #8 () s/p: 1. C5-6 and C6-7 anterior cervical discectomy, evacuation of cervical epidural and intradural abscess. 2. C5-6 and C6-7 anterior interbody fusion, allograft bone 3. C5-7 anterior cervical instrumentation ARELIS drain d/c'd . Plan: Primary & critical care management per Boat [employer]. Neuro checks. Wean sedation & ventilation as appropriate. [place] cervical collar at all times. Monitor ARELIS drain output. Mobilise patient w/assistance when appropriate. Physical & Occupational Therapy eval & tx. "Questionable role for further surgical intervention given patient's extensive infectious disease including pulmonary lesions and overall poor prognosis" - Dr Chu at 1944 (Aftab Newman) Attending Statement The exam, history, and the medical decision-making described in the above note were completed with the assistance of the mid-level provider. I reviewed and agree with the findings presented. I attest that I had a [id number] encounter with the patient on the same day, and personally performed and documented my assessment and findings in the medical record. Patient remains intubated and sedated. No overall change in neurologic exam Palliative care notes reviewed. Still working with family regarding care goals. Possible withdrawal from artificial support pending further discussions with the patient's brother. Will avoid further surgical intervention at this point until goals are better defined. (Ryan Chu MD) Aftab Newman Dec 16, 2017 11:54 Ryan Chu MD Dec 16, 2017 22:45
[2017-12-16] MEDS: AMIODARONE 200 MG TAB PO SCH (21:48)
[2017-12-17] VITALS (17 sets, daily range): BP systolic 95–122; BP diastolic 54–70; PULSE 45–53; RESP 22; TEMP 97.7–99.3; O2SAT 92–100
[2017-12-17] MEDS: fentaNYL DRIP 250 ML IV PRN ×3 (03:21→22:23)
[2017-12-17] MEDS: METOPROLOL TARTRATE 5 MG/5 ML VIAL IV PUSH SCH ×4 (04:33→22:23)
[2017-12-17] MEDS: oxyCODONE HCL ORAL CONC 5 MG/0.25 ML SYRINGE PO SCH ×6 (04:33→23:16)
[2017-12-17] MEDS: CEFEPIME INJ 2,000 MG in SODIUM CHLORIDE 0.9% INJ 100 ML IV SCH ×2 (06:51→17:50)
[2017-12-17] MEDS: MIDAZOLAM 50 MG/50 ML INJ 50 ML IV PRN (06:53)
[2017-12-17] MEDS: CEFTAROLINE INJ 600 MG in SODIUM CHLORIDE 0.9% INJ 100 ML IV SCH ×3 (07:05→22:23)
[2017-12-17] MEDS: CHLORHEXIDINE 0.12% (ORAL KIT) 15 ML CUP OROPHARYNG SCH ×2 (07:45→20:18)
[2017-12-17] MEDS: PROPOFOL 1000 MG/100 ML IV PRN ×4 (07:54→20:37)
[2017-12-17] MEDS: REMOVE OLD LIDOCAINE PATCH T-DERMAL SCH ×2 (09:00→20:19)
--- NOTE | 2017-12-17 09:03 | HHI.NSPN ---
(Aftab Newman) History Chief Complaint: Unable to obtain due to patient's clinical condition. (Aftab Newman) Interval History 12/07: 47-year-old male with a history of IV drug abuse. Multiple admissions since March 2017 for several areas of cutaneous, soft tissue abscess formation , sepsis. Recent admission September 2017 for antecubital abscesses. Presents to the emergency department 12/06/2017 with generalized fatigue, abdominal pain, productive cough. Now complains of neck pain. Positive progressive numbness, dysesthesia upper extremities with quadriparesis noted today. He went emergently to the operating room for a C5-6 and C6-7 ACDF and evacuation of a cervical epidural and intradural abscess. Post-operatively the patient was admitted to the [facility] unit for further care and monitoring. 12/08: The patient is intubated and mechanically ventilated when seen this morning. He had propofol infusing for sedation. Nursing reports that she was not able to obtain a temperature on the patient this morning and she increased the ambient temperature. An hour later his temp was 94.1. She placed warm blankets on him and an external warming blanket. His temp when seen was 97.5. Upon evaluation he had movement of the right foot to noxious stimulation. There was questionable movement of the left toes. He had no response with the upper extremities. He is noted to have a purplish rash to the distal lower extremities. Also the left pupil was slightly larger than the right and both were non-reactive. Breath sounds were decreased on the left. 12/09: When seen this morning the patient is agitated and moving his head about. His sedation has been on hold per Nursing. He is intubated and on CPAP/ PSV. He was did move the upper extremities and left lower to command and after that moved them spontaneously. No movement was noted to the right lower. 12/10: This morning the patient is lethargic but is sedated with dexmedetomidine and propofol. He remains intubated and is on PRVC A/C settings. He moved the right upper extremity to noxious stimulation to the left side extremities, but he had no response with any extremity to noxious stimulation applied to it. The pupils were unequal and questionably reactive. Nursing reports that he is to go for his MRI scans of the spine later today. She also said the patient's sedation was resumed due to his agitation and elevated systolic blood pressure. 12/11: Intubated, sedated. Cervical collar in place. 12/12: remains intubated, sedates. Repeat MRI of spine yesterday reviewed by Dr. Brandon. 12/13: intubated and well sedated, reported to minimally withdraw in lower extremities. 12/14: The patient remains lethargic. He is still intubated and mechanically ventilated with propofol infusing for sedation. He did move the right foot some to command and also spontaneously. He did have some response of the right-sided extremities to noxious stimulation but not the left. Nursing reported some right lower extremity movement to command as well. She reported that when his sedation is weaned down the patient becomes agitated. Patient being transfused for haemoglobin level of 6.7 this morning. 12/15: Today the patient is comatose when seen, but he does have propofol infusing for sedation. He continues to be intubated and mechanically ventilated. He had no motor response to any stimulation. The pupils were equal but sluggish with a mild corneal reflex bilaterally. He remains at maximum sedation with propofol due to his agitation when weaned down per Nursing. 12/16: When seen the patient is comatose. Midazolam has been added to the propofol for sedation. He is intubated and mechanically ventilated. The pupils appeared nonreactive although there was a trace corneal reflex bilaterally. There was no motor response to any stimulation. His brother is considering withdrawal of life support per the Palliative Care notes. 12/17: This morning the patient continues to be comatose but sedated with two medications. He continues to be intubated and is on PCV setting. He had no motor response to any stimulation. He still has a trace corneal reflex bilaterally although the pupils appear nonreactive. Nursing reports that Palliative Care is meeting with the brother at this time as to withdrawal of care. (Aftab Newman) Exam Results 12/15/17 12/15/17 12/16/17 12/16/17 12/17/17 12/17/17 06: 18:00 06:00 18:00 06:00 18:00 Intake Total 3468.5 ml 2399 ml 1000 ml 1761 ml 1796.4 ml 226.1 ml Output Total 660 ml 900 ml 570 ml 570 ml 775.0 ml Balance 2808.5 ml 1499 ml 430 ml 1191 ml 1021.4 ml 226.1 ml Intake Oral 0 ml IV Total 2937.5 ml 1810 ml 200 ml 1100 ml 1546.4 ml 226.1 ml Tube Feeding 531 ml 409 ml 400 ml 481 ml 150 ml Other 180 ml 400 ml 180 ml 100 ml Output Urine Total 650 ml 900 ml 550 ml 550 ml 475 ml Stool Total 0 ml 0 ml 0 ml Tube Feeding Residual Discard 300.0 ml Chest Tube Drainage Total 10 ml 0 ml 20 ml 20 ml 0 ml # Bowel Movements 0 Vital Signs Date Time Temp Pulse Resp B/P (MAP) Pulse Ox O2 Delivery O2 Flow Rate FiO2 12/17/17 07:50 99 50 12/17/17 07:00 97 Mechanical Ventilator 50 12/17/17 06:00 53 12/17/17 04:00 99.0 53 22 96/54 (68) 96 12/17/17 04:00 50 12/17/17 04:00 53 12/17/17 03:55 95 40 12/17/17 02:00 53 12/17/17 00:00 99.3 53 22 105/56 (72) 100 12/17/17 00:00 50 12/17/17 00:00 53 12/16/17 23:34 97 50 12/16/17 22:00 98 Mechanical Ventilator 50 12/16/17 22:00 60 12/16/17 20:00 40 12/16/17 20:00 53 12/16/17 20:00 99.3 52 22 109/67 (81) 100 12/16/17 19:59 92 40 12/16/17 19:00 100 Mechanical Ventilator 40 12/16/17 18:00 53 12/16/17 16:50 94 40 12/16/17 16:00 50 12/16/17 16:00 40 12/16/17 16:00 98.9 50 22 99/56 (70) 97 12/16/17 14:00 51 12/16/17 12:00 40 12/16/17 12:00 99.0 50 22 114/65 (81) 100 12/16/17 12:00 50 12/16/17 10:00 54 12/16/17 08:56 95 40 12/16/17 08:00 40 12/16/17 08:00 99.0 52 22 108/61 (77) 96 12/16/17 08:00 52 12/16/17 07:00 96 Mechanical Ventilator 40 12/16/17 07:00 53 108/60 12/16/17 06:00 56 12/16/17 04:19 98 40 12/16/17 04:00 40 12/16/17 04:00 58 12/16/17 04:00 97.4 54 22 118/70 (86) 99 12/16/17 02:00 54 12/16/17 00:00 97.4 53 22 120/70 (87) 100 12/16/17 00:00 55 12/16/17 00:00 40 12/15/17 23:01 100 40 12/15/17 22:00 54 12/15/17 21:00 22 12/15/17 20:00 53 12/15/17 20:00 40 12/15/17 20:00 98.2 54 22 138/79 (98) 100 12/15/17 19:23 100 40 12/15/17 19:00 100 Mechanical Ventilator 40 12/15/17 18:00 51 12/15/17 17:48 52 123/71 12/15/17 16:00 53 12/15/17 16:00 40 12/15/17 16:00 98.8 53 22 125/73 (90) 100 12/15/17 15:34 100 40 12/15/17 14:00 56 12/15/17 13:43 57 145/83 12/15/17 12:00 58 12/15/17 12:00 40 12/15/17 12:00 98.2 58 22 146/92 (110) 95 12/15/17 11:52 99 40 12/15/17 10:00 56 12/15/17 08:10 100 45 12/15/17 08:00 99.0 56 22 131/81 (98) 100 12/15/17 08:00 56 12/15/17 08:00 55 12/15/17 07:00 100 Mechanical Ventilator 55 12/15/17 06:21 59 137/84 12/15/17 06:00 58 12/15/17 04:01 100 65 12/15/17 04:00 98.4 52 22 132/86 (101) 100 12/15/17 04:00 52 12/15/17 04:00 55 12/15/17 03:26 54 134/86 12/15/17 02:00 53 12/15/17 01:12 100 65 12/15/17 00:30 56 150/103 12/15/17 00:00 75 12/15/17 00:00 98.1 54 22 140/88 (105) 100 12/15/17 00:00 54 12/14/17 23:49 56 147/93 12/14/17 22:00 56 12/14/17 21:00 56 127/73 12/14/17 20:30 56 129/73 12/14/17 20:00 75 12/14/17 20:00 99.1 58 22 133/71 (91) 100 12/14/17 20:00 58 133/71 12/14/17 20:00 58 12/14/17 19:26 100 75 12/14/17 19:00 100 Mechanical Ventilator 75 12/14/17 18:28 61 135/79 12/14/17 18:00 60 12/14/17 16:37 68 142/85 12/14/17 16:00 68 12/14/17 16:00 75 12/14/17 16:00 99.3 64 22 140/82 (101) 82 12/14/17 15:41 97 75 12/14/17 14:21 100 Ventilator 75 12/14/17 14:16 70 140/80 12/14/17 14:00 70 12/14/17 12:50 100 85 12/14/17 12:22 98 55 12/14/17 12:00 99.5 72 32 157/86 (109) 82 12/14/17 12:00 55 12/14/17 12:00 72 12/14/17 11:42 82 169/99 12/14/17 10:00 90 12/14/17 09:32 98 55 (Aftab Newman) Physical Examination GENERAL: Comatose, intubated & mechanically ventilated. Propofol 50 mcg/kg/min & midazolam 2 mg/hr infusing for sedation. Fentanyl infusing at 250 mcg/hr for pain control. No apparent distress. SKIN: Anterior neck surgical incision well approximated w/intact steri-strips, dressing intact. Purpura to both distal lower extremities. HEENT: Normocephalic, atraumatic. Pupils 2 mm, nonreactive. Orally intubated. OGT. NECK: [place] J cervical collar in place. Intact dressing to anterior surgical incision. No JVD. Trachea midline. MUSCULOSKELETAL: No evident clubbing or deformities. No response to any stimulation. NEUROLOGICAL: Comatose but sedated. No eye opening to any stimulation. Pupils 2 mm, nonreactive. Trace corneal reflex bilaterally. Nonverbal, intubated. No cough reflex to suctioning. Did not follow any commands. No extremity response to any stimulation. (Aftab Newman) Lab, Micro, Other Results Laboratory Tests Test 12/14/17 23:50 12/15/17 05:00 12/16/17 05:20 12/17/17 04:30 Vancomycin Level Trough 23.0 MCG/ML Hemoglobin 8.0 GM/DL 7.7 GM/DL Hematocrit 25.0 % 24.2 % Creatinine 1.22 MG/DL 1.51 MG/DL Estimat Glomerular Filtration Rate 63 ML/MIN 49 ML/MIN White Blood Count 15.6 TH/MM3 Red Blood Count 2.84 MIL/MM3 Mean Corpuscular Volume 85.1 FL Mean Corpuscular Hemoglobin 27.2 PG Mean Corpuscular Hemoglobin Concent 32.0 % Red Cell Distribution Width 16.9 % Platelet Count 133 TH/MM3 Mean Platelet Volume 9.9 FL Neutrophils (%) (Auto) 89.0 % Lymphocytes (%) (Auto) 6.5 % Monocytes (%) (Auto) 3.9 % Eosinophils (%) (Auto) 0.4 % Basophils (%) (Auto) 0.2 % Neutrophils # (Auto) 13.9 TH/MM3 Lymphocytes # (Auto) 1.0 TH/MM3 Monocytes # (Auto) 0.6 TH/MM3 Eosinophils # (Auto) 0.1 TH/MM3 Basophils # (Auto) 0.0 TH/MM3 CBC Comment DIFF FINAL Differential Comment Blood Urea Nitrogen 47 MG/DL Random Glucose 101 MG/DL Total Protein 6.8 GM/DL Albumin 1.0 GM/DL Calcium Level 8.0 MG/DL Alkaline Phosphatase 126 U/L Aspartate Amino Transf (AST/SGOT) 27 U/L Alanine Aminotransferase (ALT/SGPT) 10 U/L Total Bilirubin 0.3 MG/DL Sodium Level 149 MEQ/L Potassium Level 4.5 MEQ/L Chloride Level 119 MEQ/L Carbon Dioxide Level 22.2 MEQ/L Anion Gap 8 MEQ/L Random Vancomycin Level 27.4 COMMENT 20.9 COMMENT (Aftab Newman) Medical Decision Making Impression and Plan Impression: 1. Extensive cervical and upper thoracic anterior epidural abscess with significant canal and cord compromise. 2. C5-6 and C6-7 discitis. Significant destruction of the C6 vertebral body with osteomyelitis 3. History of IV drug abuse 4. History of bacterial endocarditis Postoperative Diagnosis: 1. Cervical epidural abscess 2. Cervical intradural abscess Patient's prognosis is poor. He continues to sedated with 2 medications due to agitation. He had no motor response to any stimulation. Pupils equal, nonreactive, w/mild corneal reflex bilaterally. No cough reflex. Past 24 hrs: 99.3 T max. Bradycardiac. SBP intermittently into 90s. No labs for today. Abscess, blood & sputum cultures all positive for methicillin resistant Staphylococcus aureus. MRI cervical spine demonstrated s/p C5-C7 ACDF; there is a continued anterior fluid collection, epidural vs subdural collection, extending from the tip of the dens to the T2 level, similar to prior exam; mild thecal sac narrowing throughout w/CSF seen around the cord; continued prevertebral fluid/ inflammatory change. MRI thoracic spine demonstrated an anterior extra-axial fluid collection extending from the dens to T2, does not appear significant changed, possible anterior epidural or subdural abscess; increased signal throughout the thoracic spine epidural space from T2-T3 through T11-T12 levels concerning for abscess; mild disc changes at T3-T4 through T6-T7 levels w/significant stenosis , disc changes not seen. Multiple pulmonary masses, areas of consolidation, and effusions. MRI lumbar spine demonstrated abnormal signal throughout the epidural space, concerning for infection; more focal anterior epidural collections at L4 & L5 and upper sacral regions concerning for abscess; severe thecal sac narrowing at the L1 level and extending into the sacrum; there is no significant CSF seen around the nerve roots; increased signal within the L5-S1 disc space anteriorly, posterior disc margin appears intact which is nonspecific and early infection cannot be ruled out but there is no bony destruction. POD #9 () s/p: 1. C5-6 and C6-7 anterior cervical discectomy, evacuation of cervical epidural and intradural abscess. 2. C5-6 and C6-7 anterior interbody fusion, allograft bone 3. C5-7 anterior cervical instrumentation ARELIS drain d/c'd . Plan: Primary & critical care management per [employer]. Neuro checks. Wean sedation & ventilation as appropriate. [place] J cervical collar at all times. Monitor ARELIS drain output. Mobilise patient w/assistance when appropriate. Physical & Occupational Therapy eval & tx. "Questionable role for further surgical intervention given patient's extensive infectious disease including pulmonary lesions and overall poor prognosis" - Dr Chu at 1944 (Aftab Newman) Attending Statement The exam, history, and the medical decision-making described in the above note were completed with the assistance of the mid-level provider. I reviewed and agree with the findings presented. I attest that I had a [id number] encounter with the patient on the same day, and personally performed and documented my assessment and findings in the medical record. No clinical improvement. Palliative care working with family (Ryan Chu MD) Aftab Newman Dec 17, 2017 09:03 Ryan Cuh MD Dec 19, 2017 18:04
[2017-12-17] MEDS: SODIUM CHLORIDE 0.9% FLUSH 10 ML FLUSH IV FLUSH SCH ×2 (09:51→20:19)
[2017-12-17] MEDS: GABAPENTIN 250 MG/5 ML UDC NG SCH ×3 (09:51→17:09)
[2017-12-17] MEDS: DOCUSATE SODIUM 50 MG/SENNA 8.6 MG TAB PO SCH ×2 (09:52→20:19)
[2017-12-17] MEDS: ENOXAPARIN SODIUM 30 MG/0.3 ML SYRINGE SQ SCH (09:52)
[2017-12-17] MEDS: LIDOCAINE HCL 5% PATCH T-DERMAL SCH (09:53)
--- NOTE | 2017-12-17 09:54 | HHI.CCPN ---
Subjective Remarks/Hospital Course Hospital Course: 47yM with prior IVDA and prior endocarditis who presented with right forearm abscess and severe sepsis. admitted under obs for additional work-up. complained of persistent and severe neck pain for which MRI c-spine was ordered and demonstrates large cervical epidural abscess and discitis. I was called to evaluate the patient. he is significantly weak in his upper and lower extremities and has severe back pain. I discussed the case with radiology, infectious disease, and neurosurgery. made NPO and plan for emergent cervical decompression and cage fusion. discussed with ID: will change zosyn to cefepime for [employer] penetrance. continue to follow up cultures and changed 2d echo to "urgent" from "routine" to rule out vegetations. patient is altered from severe sepsis and no additional history is obtainable. ROS is very limited, but + for arm/leg weakness, neck pain, back pain. subjective: 12/08: off vasopressors this AM. remains intubated. TTE being performed to eval for endocarditis. s/p cervical interbody cage fusion and diskectomy. 12/09: continues to fail SBT for somnolence and encephalopathy. today he is agitated, but not following commands. still with + blood cultures despite therapy. Cr rising, likely HUMAIRA secondary to ATN. patient clinically appears adequately hydrated with adequate uop. 12/10: Remains sedated, orally intubated on mechanical ventilation. 12/11: Remains sedated, orally intubated on mechanical ventilation. MRI spine shows persistent fluid collection involving C-spine, thoracic spine and lumbar spine which is not amenable to neurosurgical intervention per discussion with Dr. Brandon. 12/12: Remains sedated, orally intubated on mechanical ventilation. Febrile. Starting fentanyl drip as patient appears uncomfortable. 12/13: Sedated, orally intubated on mechanical ventilation. Converted to sinus rhythm from A. fib last night 12/14: Sedated, orally intubated on mechanical ventilation. Tachypneic. Receiving 1 unit PRBCs for hemoglobin 6.7 this morning. Adjusted vent settings. On propofol/fentanyl gtt. Adding Versed gtt. for sedation. 12/15: Sedated, orally intubated on mechanical ventilation. Remains in sinus rhythm. 12/16: Sedated, orally intubated on mechanical ventilation. 12/17: Remains sedated, orally intubated on mechanical ventilation. Awaiting on family to decide regarding de-escalation of therapy as prognosis poor. Objective Vital Signs Date Time Temp Pulse Resp B/P (MAP) Pulse Ox O2 Delivery O2 Flow Rate FiO2 12/17/17 07:50 99 50 12/17/17 07:00 Mechanical Ventilator 12/17/17 06:00 53 12/17/17 04:00 99.0 22 96/54 (68) Intake and Output 12/17/17 12/17/17 12/18/17 08:00 16:00 00:00 Intake Total 874.1 ml Output Total 475 ml Balance 399.1 ml Result Diagram: 12/16/17 0512/16/17 05 Imaging Last 48 hours Impressions Thoracic Spine MRI 12/11/17 0000 Signed Impressions: CONCLUSION: 1. There is an anterior extra-axial fluid collection extending from the dens t o T2. This was present on the prior cervical spine and does not appear signific ant changed. This could be an anterior epidural or subdural abscess. 2. Increased signal throughout the epidural space throughout the thoracic spin e extending from the T2-T3 through the T11-T12 level concerning for abscess thr oughout this region. 3. Mild disc changes at the T3-T4 through T6-T7 levels as described above. Sig nificant stenosis from the disc changes is not seen. 4. Multiple pulmonary masses, areas of consolidation, and effusions. Lumbar Spine MRI 12/11/17 0000 Signed Impressions: CONCLUSION: 1. Abnormal signal seen throughout the epidural space. This concerning for inf ection. 2. More focal anterior epidural collections at the L4 and L5 and upper sacral regions concerning for abscess. 3. There is severe narrowing of the thecal sac beginning at the L1 level and e xtending into the sacrum. CSF is seen not seen around the nerve roots throughou t these levels. 4. Increased signal within the L5-S1 disc space anteriorly. The posterior dis c margin appears intact. This is nonspecific. Early infection cannot be ruled o ut. There is no bony destruction. Cervical Spine MRI 12/11/17 0000 Signed Impressions: CONCLUSION: 1. Status post placement of anterior cervical fusion plate at the C5-C7 levels . 2. Continued anterior fluid collection likely related to an epidural versus valles bdural collection. This extends from the tip of the dens to the T2 level. This looks similar to the prior exam. There is mild narrowing of the thecal sac thro ughout however there is CSF seen around the cord throughout. 3. Continued prevertebral fluid/inflammatory change. Chest X-Ray 12/10/17 0500 Signed Impressions: CONCLUSION: Stable single view the chest. ET tube and nasogastric both good position. Diffu se airspace disease and pleural effusions are unchanged Last Impressions Cervical Spine MRI 12/07/17 0000 Signed Impressions: CONCLUSION: 1. Suspected discitis involving the C6-C7 level and possibly the C5-C6 level. 2. Large anterior epidural abscess extending from the tip of the dens down to the T2 level this causes moderate to severe stenosis throughout the mid and low er cervical and upper thoracic spine. 3. Anterior prevertebral abscess seen to the left of midline extending from th e C5 through T1 levels. There is fairly extensive prevertebral soft tissue swel ling. Chest CT 12/06/179 Signed Impressions: CONCLUSION: 1. There are numerous patchy infiltrates throughout the lungs left greater eliana n right. Some of the infiltrates are borderline cavitary particularly in the le ft upper lobe. Moderate-sized bilateral pleural effusions. The scattered pulmon gus disease is new since February 2017 Chest X-Ray 12/06/17 1959 Signed Impressions: CONCLUSION: Interval development of bilateral effusions and patchy airspace disease since A pril 2017. Renal Ultrasound 12/06/17 0000 Signed Impressions: CONCLUSION: 1. Both kidneys are echogenic suggesting chronic medical renal disease. Small cyst lower pole right kidney Objective Remarks GENERAL: Middle-age male who appears much older than stated age, lying in bed, intubated, sedated HEENT: Normocephalic. Atraumatic. Pupils equal, round, reactive, conjugate. Mucous membranes are moist NECK: Trachea is midline. There is no JVD. neck incision c/d/i with ARELIS drain with minimal sanguinous output. CHEST: Equal chest rise. PRVC. full support. left chest tube to suction. CARDIOVASCULAR: Normal rate, regular rhythm. Sinus by telemetry. ABDOMEN: Soft, nontender, nondistended. No guarding. MUSCULOSKELETAL: Pulses 2+. No peripheral edema. NEUROLOGICAL: Sedated, orally intubated on mechanical ventilation. Not responding to painful stimuli currently. SKIN: Multiple abrasions and abscesses in various stages of healing, the largest is on the right forearm which is approximately 3 cm x 2 cm and has recently been incised and drained with packing still in the wound. Track mcclain present. A/P Assessment and Plan Assessment: 47-year-old male with history of IV drug abuse and prior endocarditis presents with severe sepsis and large cervical epidural abscess with evidence of new and worsening acute upper and lower extremity myelopathy. Now s/p cervical decompression and cage fusion. remains critically ill. continue antibiotics and wean mechanical ventilation as tolerated. unsafe to extubate until mental status improves. Plan by systems: Neurologic: Cervical epidural abscess and discitis s/p cervical decompression, cage fusion 12/07 IV opiate abuse IV amphetamine abuse Acute metabolic encephalopathy secondary to severe sepsis Acute post-operative pain Frequent neurochecks Neurosurgery: Dr. Chu gabapentin 300mg po q8h tizanidine 4mg po q12h for pain oxycodone scheduled for post-op pain continue propofol for goal RASS -2. Started fentanyl GTT on 12/12 for discomfort Starting Versed gtt. on 12/14 for better sedation. added precedex. MRI spine done on 12/11 shows persistent abscess along the cervical/thoracic and lumbar spine. This was discussed with ID and Dr. Brandon. Dr. Brandon does not feel patient is a surgical candidate due to extent of abscess formation and recommend palliative care consult as prognosis is extremely poor. Respiratory: Acute hypoxic and hypercarbic respiratory failure likely significant component of neuromuscular weakness from cervical epidural abscess prior to surgery: FVC 700mL, NIF -20. Increased FiO2 80%, peep +14. On PRBC mode mechanical ventilation tidal volume 600, rate 22 Left-sided pigtail catheter remains in place, no air leak noted. wean fio2 for goal spo2 > 90% vent bundle hob elevated nebs Cardiovascular: Severe sepsis Afib with RVR HTN Switch from amiodarone drip to amiodarone via NG tube on 12/15. On nicardipine gtt., IV Lopressor. half NS at 60 cc/h Renal: Acute kidney injury Secondary to sepsis and bacteremia continue beaver continue mivf daily bmp -- Strict I/Os FEN/GI: Acute intravascular volume depletion- resolving. Acute protein calorie malnutrition: Severe NGT tube feeds ICU electrolyte protocol Daily BMP Maintenance IV fluids bowel regimen Heme/ID: Severe sepsis Gram-positive bacteremia: MRSA Cervical epidural abscess/discitis History of endocarditis 2d echo: negative for vegetations. TIM will not change medical management at this time. Vancomycin with pharmacy dosing cefepime IV ID added Teflaro IV on 12/11 due to worsening MRI. ID consult: Dr. Szymanski following 1 unit PRBCs being transfused on 12/14 for hemoglobin 6.7 Endocrine: -- SSI if required for hyperglycemia Prophylaxis: GI Prophylaxis Pepcid DVT Prophylaxis -- SCDs Holding pharmacologic DVT prophylaxis in the setting of neurosurgery Lines: Peripheral IVs. Dispo: remain in ICU. Very critically ill and worsening acute myelopathy. unable to separate from mechanical ventilation at this time. Patient brother is discussing options of palliative care service. Patient made alternate code. Prognosis extremely poor. Extensive spread of abscess along spinal cord despite antibiotics and patient is not a surgical candidate per neurosurgery. Brother is considering terminal wean. Discussed with ID and discussed with neurosurgery Dr. Brandon. Dr. Brandon does not feel patient is a candidate for neurosurgical intervention due to extent of his abscess formation involving almost entire length of spine. He recommends consulting palliative care. Consulted palliative care service to assist with deciding goals of therapy. Prognosis appears poor. This patient remains critically ill with one or more organ systems which are or may become a threat to life. I have spent in excess of 30 minutes discontinuously in the care and management of this patient. This time is exclusive of procedures, and includes, but is not limited to, evaluation of the patient, review of the medical record, discussions with family, consultants, nursing staff, or respiratory therapy, and documentation in the medical record. Pieter Michel MD Dec 17, 2017 09:54
--- NOTE | 2017-12-17 11:26 | HHI.HCPN ---
Reason for visit a. To assist with evaluation and management of symptoms including: Dyspnea, pain b. To assist medical decision maker(s) with: better understanding of current medical conditions; weighing benefits/burdens of medical treatment options; making medical treatment decisions. . Subjective/Interval History Brief history: Mr. Duncan is a 47 year old male with a history of IV drug abuse and endocarditis who presented to [facility] ED on 12/06/2017. Upon presentation, he was found to have an abscess in his right forearm and had an I&D. Of note, the patient was treated for mitral valve endocarditis last year. Echocardiogram on 12/08/2017 showed no evidence of vegetation; left ventricular systolic function was normal with an estimated EF of 60-65%. MRI of the cervical spine revealed a large epidural abscess and discitis, and the patient was taken to the OR for cervical decompression and cage fusion. I was called by nurse to come to unit to follow up on clarification of medical treatment goals as patient's brotherMando was at bedside. Patient seen and examined in ICU. Brother and friend at bedside. He remains intubated on mechanical ventilation, FiO2 50%. Sedated on Propofol, Fentanyl and Versed drip. Tmax 99.3. Heart rate in the 50's. No new CBC or chemistries today. Sputum and blood cultures growing MRSA. Intraoperative cultures with MRSA as well. Prior imaging studies show extensive infection down the cervical, thoracic and lumbar spine. Remains on antibiotics, infectious disease following. All providers indicate patient has poor prognosis. Patient is not a candidate for surgical intervention due to extent of his abscess formation involving almost entire length of spine. . Family/friend interactions Met with brother/ HCP Mando Duncan and his friend, Malathi. Mando is appropriately tearful. Medical update provided. He is clear the patient would not want to "live like this." He is planning to proceed with withdrawal of life support, likely later today (time to be determined). He wants to speak with some family/ friends to offer them time to come say their goodbyes. Offered time for life review. Questions answered. 12:09pm: Call from friend Malathi ([phone]) to notify they will be here around 1:45pm to sign exhibits and to proceed with transition to comfort with withdrawal of life support. 1:45Pm: Met with brotherMando in ER waiting room per his request. Also present Rocio Garzon LCSW. He tells me he plans to proceed with transition to comfort with compassionate withdrawal of life support on 12/18/17 at 9:30am. He signed Exhibit B. He wants to give friends a chance to come say their goodbyes in the meantime. Will meet 12/18/17 at 930am per family request. Dr. Michel notified. . Advance Directives Advance Directive Specifics Documented care wishes: None available. . Significant change in goals: Plan to transition to comfort measures with compassionate withdrawal of life support later today. . Objective Vital Signs Date Time Temp Pulse Resp B/P (MAP) Pulse Ox O2 Delivery O2 Flow Rate FiO2 12/17/17 10:00 52 12/17/17 08:00 99.0 51 22 107/64 (78) 99 12/17/17 08:00 51 12/17/17 08:00 50 12/17/17 07:50 99 50 12/17/17 07:00 97 Mechanical Ventilator 50 12/17/17 06:00 53 12/17/17 04:00 99.0 53 22 96/54 (68) 96 12/17/17 04:00 50 12/17/17 04:00 53 12/17/17 03:55 95 40 12/17/17 02:00 53 12/17/17 00:00 99.3 53 22 105/56 (72) 100 12/17/17 00:00 50 12/17/17 00:00 53 12/16/17 23:34 97 50 12/16/17 22:00 98 Mechanical Ventilator 50 12/16/17 22:00 60 12/16/17 20:00 40 12/16/17 20:00 53 12/16/17 20:00 99.3 52 22 109/67 (81) 100 12/16/17 19:59 92 40 12/16/17 19:00 100 Mechanical Ventilator 40 12/16/17 18:00 53 12/16/17 16:50 94 40 12/16/17 16:00 50 12/16/17 16:00 40 12/16/17 16:00 98.9 50 22 99/56 (70) 97 12/16/17 14:00 51 12/16/17 12:00 40 12/16/17 12:00 99.0 50 22 114/65 (81) 100 12/16/17 12:00 50 Intake & Output 12/17/17 12/17/17 07:00 19:00 Intake Total 1822.5 ml 148 ml Output Total 775.0 ml Balance 1047.5 ml 148 ml IV Total 1572.5 ml 148 ml Tube Feeding 150 ml Other 100 ml Output Urine Total 475 ml Stool Total 0 ml Tube Feeding Residual Discard 300.0 ml Chest Tube Drainage Total 0 ml Physical Exam CONSTITUTIONAL/GENERAL: This is an adequately nourished patient, currently intubated on mechanical ventilator TUBES/LINES/DRAINS: PIV 2, left subclavian central line, left-sided chest tube , Mixon catheter, OGT, SCDs SKIN: No jaundice, rashes, or lesions. Ecchymoses on upper extremities. Scabbed areas on left forearm/wrist. Skin temperature appropriate. Not diaphoretic. EYES: Pupils round and reactive, sluggish. NECK: Trachea midline. Supple, nontender. No palpable thyroid enlargement or nodularity. CARDIOVASCULAR: Regular rate and rhythm. No JVD. Peripheral pulses symmetric. RESPIRATORY/CHEST: Intubated on mechanical ventilation. Left-sided chest tube to suction. GASTROINTESTINAL: Abdomen firm, mildly distended. Bowel sounds present. GENITOURINARY: Without palpable bladder distension. Mixon catheter in place, draining cloudy yellow urine MUSCULOSKELETAL: Extremities without clubbing or cyanosis. 3+ edema in feet and hands bilaterally. NEUROLOGICAL: Sedated on Propofol, Fentanyl and Versed. Does not respond to verbal stimuli or withdraw to painful stimuli PSYCHIATRIC: Unable to assess given current clinical condition. . Diagnostic Tests Laboratory Laboratory Tests Test 12/14/17 23:50 12/15/17 05:00 12/16/17 05:20 12/17/17 04:30 Vancomycin Level Trough 23.0 MCG/ML (5.0-10.0) Hemoglobin 8.0 GM/DL (13.0-17.0) 7.7 GM/DL (13.0-17.0) Hematocrit 25.0 % (39.0-51.0) 24.2 % (39.0-51.0) Creatinine 1.22 MG/DL (0.60-1.30) 1.51 MG/DL (0.60-1.30) Estimat Glomerular Filtration Rate 63 ML/MIN (>89) 49 ML/MIN (>89) White Blood Count 15.6 TH/MM3 (4.0-11.0) Red Blood Count 2.84 MIL/MM3 (4.50-5.90) Mean Corpuscular Volume 85.1 FL (80.0-100.0) Mean Corpuscular Hemoglobin 27.2 PG (27.0-34.0) Mean Corpuscular Hemoglobin Concent 32.0 % (32.0-36.0) Red Cell Distribution Width 16.9 % (11.6-17.2) Platelet Count 133 TH/MM3 (150-450) Mean Platelet Volume 9.9 FL (7.0-11.0) Neutrophils (%) (Auto) 89.0 % (16.0-70.0) Lymphocytes (%) (Auto) 6.5 % (9.0-44.0) Monocytes (%) (Auto) 3.9 % (0.0-8.0) Eosinophils (%) (Auto) 0.4 % (0.0-4.0) Basophils (%) (Auto) 0.2 % (0.0-2.0) Neutrophils # (Auto) 13.9 TH/MM3 (1.8-7.7) Lymphocytes # (Auto) 1.0 TH/MM3 (1.0-4.8) Monocytes # (Auto) 0.6 TH/MM3 (0-0.9) Eosinophils # (Auto) 0.1 TH/MM3 (0-0.4) Basophils # (Auto) 0.0 TH/MM3 (0-0.2) CBC Comment DIFF FINAL Differential Comment Blood Urea Nitrogen 47 MG/DL (7-18) Random Glucose 101 MG/DL (74-106) Total Protein 6.8 GM/DL (6.4-8.2) Albumin 1.0 GM/DL (3.4-5.0) Calcium Level 8.0 MG/DL (8.5-10.1) Alkaline Phosphatase 126 U/L (45-117) Aspartate Amino Transf (AST/SGOT) 27 U/L (15-37) Alanine Aminotransferase (ALT/SGPT) 10 U/L (12-78) Total Bilirubin 0.3 MG/DL (0.2-1.0) Sodium Level 149 MEQ/L (136-145) Potassium Level 4.5 MEQ/L (3.5-5.1) Chloride Level 119 MEQ/L (98-107) Carbon Dioxide Level 22.2 MEQ/L (21.0-32.0) Anion Gap 8 MEQ/L (5-15) Random Vancomycin Level 27.4 COMMENT 20.9 COMMENT Result Diagram: 12/16/17 0520 12/16/17 0520 Microbiology Microbiology Date/Time Source Procedure Growth Status 12/11/17 04:35 Blood Peripheral Aerobic Blood Culture - Final S. Aureus Mrsa Complete 12/11/17 04:35 Blood Peripheral Anaerobic Blood Culture - Final NO GROWTH IN 5 DAYS Complete 12/11/17 17:00 Sputum Endotracheal Gram Stain - Final Complete 12/11/17 17:00 Sputum Culture - Final S. Aureus Mrsa Complete 12/07/17 01:15 Urine Random Urine Urine Culture - Final <10,000 CFU/ML MIXED GRAM POSITIVE FL... Complete 12/07/17 22:58 Abscess Neck Fungal Smear - Final NO FUNGAL ELEMENTS SEEN. Resulted 12/07/17 22:58 Abscess Neck Fungal Culture - Preliminary NO GROWTH IN 1 WEEK Resulted . Imaging Last Impressions Chest X-Ray 12/14/17 0000 Signed Impressions: CONCLUSION: Improvement as above. Thoracic Spine MRI 12/11/17 0000 Signed Impressions: CONCLUSION: 1. There is an anterior extra-axial fluid collection extending from the dens t o T2. This was present on the prior cervical spine and does not appear signific ant changed. This could be an anterior epidural or subdural abscess. 2. Increased signal throughout the epidural space throughout the thoracic spin e extending from the T2-T3 through the T11-T12 level concerning for abscess thr oughout this region. 3. Mild disc changes at the T3-T4 through T6-T7 levels as described above. Sig nificant stenosis from the disc changes is not seen. 4. Multiple pulmonary masses, areas of consolidation, and effusions. Lumbar Spine MRI 12/11/17 0000 Signed Impressions: CONCLUSION: 1. Abnormal signal seen throughout the epidural space. This concerning for inf ection. 2. More focal anterior epidural collections at the L4 and L5 and upper sacral regions concerning for abscess. 3. There is severe narrowing of the thecal sac beginning at the L1 level and e xtending into the sacrum. CSF is seen not seen around the nerve roots throughou t these levels. 4. Increased signal within the L5-S1 disc space anteriorly. The posterior dis c margin appears intact. This is nonspecific. Early infection cannot be ruled o ut. There is no bony destruction. Cervical Spine MRI 12/11/17 0000 Signed Impressions: CONCLUSION: 1. Status post placement of anterior cervical fusion plate at the C5-C7 levels . 2. Continued anterior fluid collection likely related to an epidural versus valles bdural collection. This extends from the tip of the dens to the T2 level. This looks similar to the prior exam. There is mild narrowing of the thecal sac thro ughout however there is CSF seen around the cord throughout. 3. Continued prevertebral fluid/inflammatory change. Cervical Spine X-Ray 12/08/17 0000 Signed Impressions: CONCLUSION: Inter vertebral discs are in place Chest CT 12/06/172158 Signed Impressions: CONCLUSION: 1. There are numerous patchy infiltrates throughout the lungs left greater eliana n right. Some of the infiltrates are borderline cavitary particularly in the le ft upper lobe. Moderate-sized bilateral pleural effusions. The scattered pulmon gus disease is new since February 2017 Renal Ultrasound 12/06/17 0000 Signed Impressions: CONCLUSION: 1. Both kidneys are echogenic suggesting chronic medical renal disease. Small cyst lower pole right kidney . Procedures 12/08/17: Intubation/NGT 12/08/17: Right sided percutaneous pigtail tube thoracostomy 12/08/17: Left subclavian central line . Assessment and Plan Disease Oriented Problem List: (1) Renal insufficiency (2) HTN (hypertension) (3) Skin abscess (4) Abscess of right arm (5) Cellulitis of left arm (6) Abscess in epidural space of cervical spine Symptom Scale: (1) Dyspnea (2) Pain Pertinent Non-Medical Issues Psychosocial: Patient was born and raised in [place]. 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 Spiritual: Pending conversation with patient's family Legal: Patient does not have capacity for medical decision-making at this time. Palliative care spoke to the patient's father who has opted out of healthcare proxy decision making. He states the patient was never and does not have children. His only reported sibling, Mando, lives locally and is willing to act in the role of healthcare proxy decision making. Ethical issues impacting care: No known ethical issues impacting care at this time. . Important Contacts Edy Duncan, father: [phone] Mando Duncan, brother: [phone] . Prognosis Patient is a known IV drug user with a history of endocarditis status post cervical decompression and cage fusion secondary to cervical epidural abscess and discitis. MRI spine done on 12/11/17 showing persistent abscess along the cervical/thoracic and lumbar spine. Patient is not a surgical candidate due to the extent of abscess formation. Prognosis is extremely poor. . Code Status: Alternative Code Plan * ALTERNATE CODE- INTUBATION ONLY * Decision-making: Patient does not have capacity for medical decision-making at this time. Palliative care spoke to the patient's father who has opted out of healthcare proxy decision making. He states the patient was never and does not have children. His only reported sibling, Mando, lives locally and is willing to act in the role of healthcare proxy decision making. * Met with brotherMando in ER waiting room per his request. Also present Rocio Garzon LCSW. He tells me he plans to proceed with transition to comfort with compassionate withdrawal of life support on 12/18/17 at 9:30am. He signed Exhibit B. He wants to give friends a chance to come say their goodbyes in the meantime. Will meet 12/18/17 at 930am per family request. * Discussed with nursing staff and Dr. Michel. * Symptom management-pain: Multifactorial. Postoperative pain, infection/ abscess, invasive lines, bedbound status, immobility, withdrawal. Patient is currently sedated on Fentanyl, Propofol and Versed. He is receiving oxycodone 20 mg q 4 hours ATC. PRN Dilaudid is available every 4 hours but has not been administered in the past 24 hours * Palliative care will continue to follow this patient throughout his hospitalization to establish trust, assist with symptom management and clarification of medical treatment goals. . Attestation To help prompt me to consider important information that might be impacting today's encounter and assessment, information from prior notes written by myself or my colleagues may have been "brought forward" into today's note. My signature on this note, however, is an attestation that I personally performed the exam, history, and/or decision-making noted today, and, unless otherwise indicated, the interactions with patient, family, and staff as well as the review of records all occurred today. I also attest that the listed assessment and stated plan reflect my best clinical judgment today based on the combination of historical information, prior notes, and today's exam/ interactions. When time spent is documented, it refers only to time spent today by the signer, or if indicated, combined time spent today by collaborating physician/nurse practitioner. Chichi Phillips Dec 17, 2017 11:26
[2017-12-17] MEDS ORDERED: PHARMACY ORDERED LAB ONE (11:45)
[2017-12-17] MEDS: SODIUM CHLOR 0.45% 1000 ML INJ 1,000 ML IV SCH (13:44)
--- NOTE | 2017-12-17 14:29 | HHI.IDPN ---
Subjective Subjective Remarks ID X cover for Dr Szymanski chart was reviewed Patient is a 47-year-old male, with known history of active IV drug use, presented to the hospital complaining of an infection in his right forearm were he had injected about 3 days ago. He also has had some subjective complaints of fever and chills. Patient apparently also has been having problem with pain in the neck area that goes to his shoulder worse on the left side than on the right side, as well as left-sided chest pain. He denies any sore throat or any respiratory complaint as far as cough or congestion. Has not had any nausea or vomiting. He is also has some lower rib cage pain. Denies any urinary complaints. On presentation he was found to have an abscess in his right forearm, and had an I&D done. CT of the chest is showing some infiltrates as well as some cavitary lesions and some round lesions. Chest x-ray showing some bilateral infiltrates. His creatinine was also elevated, and renal ultrasound did not show any obstruction, and possibly has some findings of medical renal disease. 2 blood cultures done on admission are now reported as growing gram- positive cocci in pairs and clusters. Patient's drug screen is positive for amphetamines and opiates. 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 He has had multiple infections in his upper extremity related to injections from his IV drug use. The last admission for infection in his arm was September 2017. He had an echo done at that time which did not show any vegetation in the mitral valve. Infectious disease consultation has been requested to evaluate the patient. Notes reviewed Pippa rodríguez D/W RN On the vent All blood cultures with MRSA, last drawn on 12/11 Intraop Cx with MRSA. BP okay, not on pressors. S/P1. C5-6 and C6-7 anterior cervical discectomy, evacuation of cervical epidural and intradural abscess. 2. C5-6 and C6-7 anterior interbody fusion, allograft bone 3. C5-7 anterior cervical instrumentation Imaging studies showing extensive infection down to thoracic and lumbar spine POssible withdrawl Antibiotics Vancomycin Teflaro Current Medications Medications (Trade) Dose Ordered Sig/Brennon Route Start Time Stop Time Status Last Admin Pharmacy Profile Note 0 ml @ 0 mls/hr UNSCH OTHER 12/06/17 22:30 (NS Flush) 2 ml UNSCH PRN IV FLUSH 12/06/17 22:30 (NS Flush) 2 ml BID IV FLUSH 12/07/17 09:00 12/15/17 08:47 (Tylenol) 650 mg Q4H PRN PO 12/06/17 22:30 12/07/17 07:51 (Zofran Odt) 4 mg Q6H PRN PO 12/06/17 22:30 (Narcan Inj) 0.4 mg UNSCH PRN IV PUSH 12/06/17 22:30 (Pearl-Colace) 1 tab BID PO 12/07/17 09:00 12/15/17 08:48 (Milk Of Magnesia Liq) 30 ml Q12H PRN PO 12/06/17 22:30 12/14/17 09:49 (Senokot) 17.2 mg Q12H PRN PO 12/06/17 22:30 (Dulcolax Supp) 10 mg DAILY PRN RECTAL 12/06/17 22:30 (Lactulose Liq) 30 ml DAILY PRN PO 12/06/17 22:30 12/14/17 23:50 (Lidoderm 5% Patch.12 Hr) 1 patch DAILY T-DERMAL 12/07/17 10:15 12/15/17 08:49 (Lovenox Inj) 30 mg DAILY SQ 12/07/17 11:00 12/15/17 08:48 Miscellaneous Information 1 Q12HR T-DERMAL 12/07/17 21:00 12/15/17 08:49 Cefepime HCl 2000 mg/Sodium Chloride 100 ml @ 200 mls/hr Q12H IV 12/07/17 18:00 12/15/17 05:25 (Dilaudid Pf Inj) 1 mg Q4H PRN IV 12/07/17 20:30 12/12/17 07:47 Phenylephrine HCl 40 mg/Dextrose 500 ml @ 30 mls/hr TITRATE PRN IV 12/08/17 02:30 12/08/17 01:45 (Brethine Inj) 1 mg UNSCH PRN SQ 12/08/17 02:30 Propofol 100 ml @ 24 mls/hr TITRATE PRN IV 12/08/17 02:45 12/15/17 12:24 (Neurontin Liq) 300 mg TID NG 12/08/17 13:00 12/15/17 08:48 (Zanaflex) 4 mg Q12HR PO 12/08/17 10:30 12/15/17 08:48 (Roxicodone Intensol Liq) 20 mg Q4HR PO 12/08/17 12:00 12/15/17 08:47 Nicardipine HCl 25 mg/Sodium Chloride 260 ml @ 52 mls/hr TITRATE PRN IV 12/09/17 18:00 12/15/17 06:21 (Peridex 0.12% Liq) 15 ml BID@0800,2000 OROPHARYNG 12/09/17 20:00 12/15/17 08:47 Dexmedetomidine HCl 200 mcg/ Sodium Chloride 50 ml @ 4.28 mls/hr TITRATE PRN IV 12/09/17 19:00 12/11/17 16:15 (Trandate Inj) 10 mg Q4H PRN IV PUSH 12/10/17 11:00 12/12/17 09:39 Ceftaroline Fosamil 600 mg/ Sodium Chloride 100 ml @ 100 mls/hr Q8H IV 12/11/17 15:00 12/15/17 06:19 Fentanyl Citrate 250 ml @ 5 mls/hr TITRATE PRN IV 12/12/17 09:45 12/15/17 03:25 Amiodarone HCl 450 mg/Sodium Chloride 250 ml @ 33.33 mls/ hr Q7H31M PRN IV 12/12/17 10:08 12/15/17 18:00 12/15/17 03:26 (Lopressor Inj) 5 mg Q6H IV PUSH 12/12/17 11:00 12/14/17 16:38 Sodium Chloride 1,000 ml @ 60 mls/hr [id number] IV 12/13/17 10:30 12/15/17 03:27 Vancomycin HCl 1750 mg/Sodium Chloride 517.5 ml @ 250 mls/hr Q18H IV 12/13/17 12:00 Future Hold 12/14/17 23:48 Midazolam HCl 50 ml @ 2 mls/hr TITRATE PRN IV 12/14/17 14:00 12/15/17 12:24 (Cordarone) 400 mg DAILY@2200 PO 12/16/17 22:00 Lines Line with no evidence of infection Past Medical History Hypertension: Untreated. IV drug abuser Skin abscesses related to IVDU S/P Rx MV IE Past Surgical History Bilateral wrist abscess incision and drainage/washout Allergies: Coded Allergies: No Known Allergies (Unverified , 12/06/17) Objective . Vital Signs Date Time Temp Pulse Resp B/P (MAP) Pulse Ox O2 Delivery O2 Flow Rate FiO2 12/17/17 14:00 48 12/17/17 12:00 98.5 52 22 122/69 (86) 95 12/17/17 12:00 52 12/17/17 12:00 50 12/17/17 11:24 94 50 12/17/17 10:00 52 12/17/17 08:00 99.0 51 22 107/64 (78) 99 12/17/17 08:00 51 12/17/17 08:00 50 12/17/17 07:50 99 50 12/17/17 07:00 97 Mechanical Ventilator 50 12/17/17 06:00 53 12/17/17 04:00 99.0 53 22 96/54 (68) 96 12/17/17 04:00 50 12/17/17 04:00 53 12/17/17 03:55 95 40 12/17/17 02:00 53 12/17/17 00:00 99.3 53 22 105/56 (72) 100 12/17/17 00:00 50 12/17/17 00:00 53 12/16/17 23:34 97 50 12/16/17 22:00 98 Mechanical Ventilator 50 12/16/17 22:00 60 12/16/17 20:00 40 12/16/17 20:00 53 12/16/17 20:00 99.3 52 22 109/67 (81) 100 12/16/17 19:59 92 40 12/16/17 19:00 100 Mechanical Ventilator 40 12/16/17 18:00 53 12/16/17 16:50 94 40 12/16/17 16:00 50 12/16/17 16:00 40 12/16/17 16:00 98.9 50 22 99/56 (70) 97 12/17/17 12/17/17 12/18/17 15:00 23:00 07:00 Intake Total 148 ml Balance 148 ml IV Total 148 ml . Laboratory Tests Test 12/16/17 05:20 White Blood Count 15.6 TH/MM3 Red Blood Count 2.84 MIL/MM3 Hemoglobin 7.7 GM/DL Hematocrit 24.2 % Mean Corpuscular Volume 85.1 FL Mean Corpuscular Hemoglobin 27.2 PG Mean Corpuscular Hemoglobin Concent 32.0 % Red Cell Distribution Width 16.9 % Platelet Count 133 TH/MM3 Mean Platelet Volume 9.9 FL Neutrophils (%) (Auto) 89.0 % Lymphocytes (%) (Auto) 6.5 % Monocytes (%) (Auto) 3.9 % Eosinophils (%) (Auto) 0.4 % Basophils (%) (Auto) 0.2 % Neutrophils # (Auto) 13.9 TH/MM3 Lymphocytes # (Auto) 1.0 TH/MM3 Monocytes # (Auto) 0.6 TH/MM3 Eosinophils # (Auto) 0.1 TH/MM3 Basophils # (Auto) 0.0 TH/MM3 CBC Comment DIFF FINAL Differential Comment Laboratory Tests Test 12/16/17 05:20 Blood Urea Nitrogen 47 MG/DL Creatinine 1.51 MG/DL Random Glucose 101 MG/DL Total Protein 6.8 GM/DL Albumin 1.0 GM/DL Calcium Level 8.0 MG/DL Alkaline Phosphatase 126 U/L Aspartate Amino Transf (AST/SGOT) 27 U/L Alanine Aminotransferase (ALT/SGPT) 10 U/L Total Bilirubin 0.3 MG/DL Sodium Level 149 MEQ/L Potassium Level 4.5 MEQ/L Chloride Level 119 MEQ/L Carbon Dioxide Level 22.2 MEQ/L Anion Gap 8 MEQ/L Estimat Glomerular Filtration Rate 49 ML/MIN Microbiology Date/Time Source Procedure Growth Status 12/17/17 13:18 Blood Peripheral Aerobic Blood Culture Pending Received 12/17/17 13:18 Blood Peripheral Anaerobic Blood Culture Pending Received 12/17/17 13:13 Blood Peripheral Aerobic Blood Culture Pending Received 12/17/17 13:13 Blood Peripheral Anaerobic Blood Culture Pending Received Imaging Last Impressions Chest X-Ray 12/14/17 0000 Signed Impressions: CONCLUSION: Improvement as above. Thoracic Spine MRI 12/11/17 0000 Signed Impressions: CONCLUSION: 1. There is an anterior extra-axial fluid collection extending from the dens t o T2. This was present on the prior cervical spine and does not appear signific ant changed. This could be an anterior epidural or subdural abscess. 2. Increased signal throughout the epidural space throughout the thoracic spin e extending from the T2-T3 through the T11-T12 level concerning for abscess thr oughout this region. 3. Mild disc changes at the T3-T4 through T6-T7 levels as described above. Sig nificant stenosis from the disc changes is not seen. 4. Multiple pulmonary masses, areas of consolidation, and effusions. Lumbar Spine MRI 12/11/17 0000 Signed Impressions: CONCLUSION: 1. Abnormal signal seen throughout the epidural space. This concerning for inf ection. 2. More focal anterior epidural collections at the L4 and L5 and upper sacral regions concerning for abscess. 3. There is severe narrowing of the thecal sac beginning at the L1 level and e xtending into the sacrum. CSF is seen not seen around the nerve roots throughou t these levels. 4. Increased signal within the L5-S1 disc space anteriorly. The posterior dis c margin appears intact. This is nonspecific. Early infection cannot be ruled o ut. There is no bony destruction. Cervical Spine MRI 12/11/17 0000 Signed Impressions: CONCLUSION: 1. Status post placement of anterior cervical fusion plate at the C5-C7 levels . 2. Continued anterior fluid collection likely related to an epidural versus valles bdural collection. This extends from the tip of the dens to the T2 level. This looks similar to the prior exam. There is mild narrowing of the thecal sac thro ughout however there is CSF seen around the cord throughout. 3. Continued prevertebral fluid/inflammatory change. Cervical Spine X-Ray 12/08/17 0000 Signed Impressions: CONCLUSION: Inter vertebral discs are in place Chest CT 12/06/172158 Signed Impressions: CONCLUSION: 1. There are numerous patchy infiltrates throughout the lungs left greater [place] n right. Some of the infiltrates are borderline cavitary particularly in the le ft upper lobe. Moderate-sized bilateral pleural effusions. The scattered pulmon gus disease is new since February 2017 Renal Ultrasound 12/06/17 0000 Signed Impressions: CONCLUSION: 1. Both kidneys are echogenic suggesting chronic medical renal disease. Small cyst lower pole right kidney Physical Exam GENERAL: Sedated on the vent, NAD SKIN: Cool and dry. Has embolic lesions in BUE and BLE. HEAD: Atraumatic. Normocephalic. No temporal wasting, or tenderness. EYES: [place] conjunctiva. No petechia or hemorrhage. Pupils equal, round and reactive to light. Extraocular movements full and intact. No scleral icterus. No injection or drainage. EARS, NOSE AND THROAT: Nose without bleeding or purulent nasal discharge. No sinus tenderness. Mucous membranes pink and moist. No oral lesions noted. NECK: C collar in place CARDIOVASCULAR: Regular rate and rhythm. No murmurs, rubs or gallops heard RESPIRATORY: Clear to auscultation. Decreased breath sounds at bases ABDOMEN: Soft, mildly distended, no reaction to palpation. Bowel sounds present and normoactive. EXTREMITIES: No clubbing, cyanosis, or edema. No joint effusions. No calf tenderness. Has embolic lesions BLE and BUE. Has multiple wounds in LUE, with some slough and surrounding erythema. RUE - area of abscess with packing, improving redness NEUROLOGICAL: Heavily sedated, unresponsive PSYCHIATRIC: Unable to assess LINE: No evidence of infection Assessment & Plan Remarks IMPRESSION Sepsis present on admission MRSA sepsis, persistent, high grade sustained bacteremia Presumed endocarditis with left side involvement vs R side involvment and PFRO with R to L shunt Dissemination and worsening of infection despite antibiotics is concerning. 2D ECHO is negative. TIM may not be safe given cervical spine infection concern for stability and will not change the management. Cervical epidural abscess - with extension to thoracic and lumbar spine Likely with endocarditis, clinically - echo negative RUE abscess Likely with endocarditis - has IVDU, likely septic lung emboli, has embolic lesions in BLE Renal insufficiency, due to infection, ?embolic - creatinine worse today Respiratory failure RECOMMENDATION Continue Vanco IV (target 15-20) Continue Teflaro IV q8hrs dosing (cannot use Genta IV as acute renal failure) Monitor closely renal fnx consider to transition to dapto if worsening creatinine Prognosis guarded. Palliative care ff D/W Roxy Boyd MD Dec 17, 2017 14:29
[2017-12-17] MEDS: AMIODARONE 200 MG TAB PO SCH ×2 (20:20→23:16)
[2017-12-18] VITALS (7 sets, daily range): BP systolic 94–96; BP diastolic 54–58; PULSE 45–48; RESP 22; TEMP 97.7–98.7; O2SAT 90–97
[2017-12-18] MEDS: PROPOFOL 1000 MG/100 ML IV PRN ×2 (00:18→05:08)
[2017-12-18] MEDS: oxyCODONE HCL ORAL CONC 5 MG/0.25 ML SYRINGE PO SCH (03:10)
[2017-12-18] MEDS: METOPROLOL TARTRATE 5 MG/5 ML VIAL IV PUSH SCH (04:32)
[2017-12-18 04:44] LABS: AUTOMATED NEUTROPHIL # 8.8 TH/MM3 (1.8-7.7); BASOPHIL # 0.1 TH/MM3 (0-0.2); BASOPHIL % 0.7 % (0.0-2.0); EOSINOPHIL % 0.2 % (0.0-4.0); HEMATOCRIT 21.6 % (39.0-51.0); HEMOGLOBIN 7.1 GM/DL (13.0-17.0); LYMPH % 8.3 % (9.0-44.0); LYMPHOCYTE # 0.9 TH/MM3 (1.0-4.8); MEAN CELL VOLUME 85.7 FL (80.0-100.0); MEAN CORPUSCULAR HGB CONC 32.7 % (32.0-36.0); MEAN PLATELET VOLUME 10.3 FL (7.0-11.0); MONOCYTE # 0.5 TH/MM3 (0-0.9); NEUT % 85.8 % (16.0-70.0); PLATELET COUNT 131 TH/MM3 (150-450); RED BLOOD COUNT 2.52 MIL/MM3 (4.50-5.90); RED CELL DISTRIBUTION WIDTH 17.2 % (11.6-17.2); WHITE BLOOD COUNT 10.3 TH/MM3 (4.0-11.0)
[2017-12-18 04:46] LABS: ALT (GPT) 15 U/L (12-78); AST (GOT) 27 U/L (15-37); BICARBONATE 18.3 MEQ/L (21.0-32.0); CALCIUM 7.9 MG/DL (8.5-10.1); CHLORIDE 116 MEQ/L (98-107); CREATININE 2.13 MG/DL (0.60-1.30); GLOMERULAR FILTRATION RATE 33 ML/MIN (>89); GLUCOSE,RANDOM 79 MG/DL (74-106); MAGNESIUM 2.3 MG/DL (1.5-2.5); SODIUM (NA) 144 MEQ/L (136-145)
[2017-12-18 05:04] LABS: ALKALINE PHOSPHATASE 218 U/L (45-117); BLOOD UREA NITROGEN 59 MG/DL (7-18); RANDOM VANCOMYCIN 18.6 COMMENT; TOTAL BILIRUBIN ADULT 0.4 MG/DL (0.2-1.0); TOTAL PROTEIN 6.9 GM/DL (6.4-8.2)
[2017-12-18] MEDS: CEFEPIME INJ 2,000 MG in SODIUM CHLORIDE 0.9% INJ 100 ML IV SCH (05:08)
[2017-12-18] MEDS: CEFTAROLINE INJ 600 MG in SODIUM CHLORIDE 0.9% INJ 100 ML IV SCH (06:00)
[2017-12-18] MEDS: SODIUM CHLOR 0.45% 1000 ML INJ 1,000 ML IV SCH (07:10)
[2017-12-18] MEDS: MIDAZOLAM 50 MG/50 ML INJ 50 ML IV PRN (07:24)
[2017-12-18] MEDS: fentaNYL DRIP 250 ML IV PRN (07:24)
--- NOTE | 2017-12-18 09:34 | HHI.NSPN ---
(Aftab Newman) History Chief Complaint: Unable to obtain due to patient's clinical condition. (Aftab Newman) Interval History 12/07: 47-year-old male with a history of IV drug abuse. Multiple admissions since March 2017 for several areas of cutaneous, soft tissue abscess formation , sepsis. Recent admission September 2017 for antecubital abscesses. Presents to the emergency department 12/06/2017 with generalized fatigue, abdominal pain, productive cough. Now complains of neck pain. Positive progressive numbness, dysesthesia upper extremities with quadriparesis noted today. He went emergently to the operating room for a C5-6 and C6-7 ACDF and evacuation of a cervical epidural and intradural abscess. Post-operatively the patient was admitted to the [facility] unit for further care and monitoring. 12/08: The patient is intubated and mechanically ventilated when seen this morning. He had propofol infusing for sedation. Nursing reports that she was not able to obtain a temperature on the patient this morning and she increased the ambient temperature. An hour later his temp was 94.1. She placed warm blankets on him and an external warming blanket. His temp when seen was 97.5. Upon evaluation he had movement of the right foot to noxious stimulation. There was questionable movement of the left toes. He had no response with the upper extremities. He is noted to have a purplish rash to the distal lower extremities. Also the left pupil was slightly larger than the right and both were non-reactive. Breath sounds were decreased on the left. 12/09: When seen this morning the patient is agitated and moving his head about. His sedation has been on hold per Nursing. He is intubated and on CPAP/ PSV. He was did move the upper extremities and left lower to command and after that moved them spontaneously. No movement was noted to the right lower. 12/10: This morning the patient is lethargic but is sedated with dexmedetomidine and propofol. He remains intubated and is on PRVC A/C settings. He moved the right upper extremity to noxious stimulation to the left side extremities, but he had no response with any extremity to noxious stimulation applied to it. The pupils were unequal and questionably reactive. Nursing reports that he is to go for his MRI scans of the spine later today. She also said the patient's sedation was resumed due to his agitation and elevated systolic blood pressure. 12/11: Intubated, sedated. Cervical collar in place. 12/12: remains intubated, sedates. Repeat MRI of spine yesterday reviewed by Dr. Brandon. 12/13: intubated and well sedated, reported to minimally withdraw in lower extremities. 12/14: The patient remains lethargic. He is still intubated and mechanically ventilated with propofol infusing for sedation. He did move the right foot some to command and also spontaneously. He did have some response of the right-sided extremities to noxious stimulation but not the left. Nursing reported some right lower extremity movement to command as well. She reported that when his sedation is weaned down the patient becomes agitated. Patient being transfused for haemoglobin level of 6.7 this morning. 12/15: Today the patient is comatose when seen, but he does have propofol infusing for sedation. He continues to be intubated and mechanically ventilated. He had no motor response to any stimulation. The pupils were equal but sluggish with a mild corneal reflex bilaterally. He remains at maximum sedation with propofol due to his agitation when weaned down per Nursing. 12/16: When seen the patient is comatose. Midazolam has been added to the propofol for sedation. He is intubated and mechanically ventilated. The pupils appeared nonreactive although there was a trace corneal reflex bilaterally. There was no motor response to any stimulation. His brother is considering withdrawal of life support per the Palliative Care notes. 12/17: This morning the patient continues to be comatose but sedated with two medications. He continues to be intubated and is on PCV setting. He had no motor response to any stimulation. He still has a trace corneal reflex bilaterally although the pupils appear nonreactive. Nursing reports that Palliative Care is meeting with the brother at this time as to withdrawal of care. 12/18: Patient remains comatose although sedated with two medications. He is intubated and on PCV settings. He had no response to any stimulation except for a trace of a corneal reflex bilaterally. As this practitioner completes his examination the family and Palliative Care come into the room to discuss the process of actually withdrawing care. (Aftab Newman) Exam Results 12/16/17 12/16/17 12/17/17 12/17/17 12/18/17 12/18/17 06:00 18:00 06:00 18:00 06:00 18:00 Intake Total 1000 ml 1761 ml 1796.4 ml 2337.1 ml 1186.1 ml 400 ml Output Total 570 ml 570 ml 775.0 ml 450 ml 350 ml Balance 430 ml 1191 ml 1021.4 ml 1887.1 ml 836.1 ml 400 ml Intake Oral 0 ml IV Total 200 ml 1100 ml 1546.4 ml 1924.1 ml 1050.1 ml 400 ml Tube Feeding 400 ml 481 ml 150 ml 233 ml 36 ml Other 400 ml 180 ml 100 ml 180 ml 100 ml Output Urine Total 550 ml 550 ml 475 ml 450 ml 350 ml Stool Total 0 ml 0 ml 0 ml Tube Feeding Residual Discard 300.0 ml Chest Tube Drainage Total 20 ml 20 ml 0 ml 0 ml 0 ml # Bowel Movements 0 1 Vital Signs Date Time Temp Pulse Resp B/P (MAP) Pulse Ox O2 Delivery O2 Flow Rate FiO2 12/18/17 08:15 93 50 12/18/17 06:00 48 12/18/17 04:00 47 12/18/17 04:00 98.7 47 22 96/58 (71) 96 12/18/17 04:00 50 12/18/17 03:31 90 50 12/18/17 02:00 46 12/18/17 00:00 97.7 45 22 94/54 (67) 97 12/18/17 00:00 50 12/18/17 00:00 45 12/17/17 23:33 98 50 12/17/17 22:00 46 12/17/17 20:25 92 50 12/17/17 20:00 46 12/17/17 20:00 50 12/17/17 20:00 97.7 46 22 110/70 (83) 94 12/17/17 19:00 94 Mechanical Ventilator 50 12/17/17 18:00 45 12/17/17 16:00 50 12/17/17 16:00 98.8 46 22 95/55 (68) 96 12/17/17 16:00 46 12/17/17 14:00 48 12/17/17 12:00 98.5 52 22 122/69 (86) 95 12/17/17 12:00 52 12/17/17 12:00 50 12/17/17 11:24 94 50 12/17/17 10:00 52 12/17/17 08:00 99.0 51 22 107/64 (78) 99 12/17/17 08:00 51 12/17/17 08:00 50 12/17/17 07:50 99 50 12/17/17 07:00 97 Mechanical Ventilator 50 12/17/17 06:00 53 12/17/17 04:00 99.0 53 22 96/54 (68) 96 12/17/17 04:00 50 12/17/17 04:00 53 12/17/17 03:55 95 40 12/17/17 02:00 53 12/17/17 00:00 99.3 53 22 105/56 (72) 100 12/17/17 00:00 50 12/17/17 00:00 53 12/16/17 23:34 97 50 12/16/17 22:00 98 Mechanical Ventilator 50 12/16/17 22:00 60 12/16/17 20:00 40 12/16/17 20:00 53 12/16/17 20:00 99.3 52 22 109/67 (81) 100 12/16/17 19:59 92 40 12/16/17 19:00 100 Mechanical Ventilator 40 12/16/17 18:00 53 12/16/17 16:50 94 40 12/16/17 16:00 50 12/16/17 16:00 40 12/16/17 16:00 98.9 50 22 99/56 (70) 97 12/16/17 14:00 51 12/16/17 12:00 40 12/16/17 12:00 99.0 50 22 114/65 (81) 100 12/16/17 12:00 50 12/16/17 10:00 54 12/16/17 08:56 95 40 12/16/17 08:00 40 12/16/17 08:00 99.0 52 22 108/61 (77) 96 12/16/17 08:00 52 12/16/17 07:00 96 Mechanical Ventilator 40 12/16/17 07:00 53 108/60 12/16/17 06:00 56 12/16/17 04:19 98 40 12/16/17 04:00 40 12/16/17 04:00 58 12/16/17 04:00 97.4 54 22 118/70 (86) 99 12/16/17 02:00 54 12/16/17 00:00 97.4 53 22 120/70 (87) 100 12/16/17 00:00 55 12/16/17 00:00 40 12/15/17 23:01 100 40 12/15/17 22:00 54 12/15/17 21:00 22 12/15/17 20:00 53 12/15/17 20:00 40 12/15/17 20:00 98.2 54 22 138/79 (98) 100 12/15/17 19:23 100 40 12/15/17 19:00 100 Mechanical Ventilator 40 12/15/17 18:00 51 12/15/17 17:48 52 123/71 12/15/17 16:00 53 12/15/17 16:00 40 12/15/17 16:00 98.8 53 22 125/73 (90) 100 12/15/17 15:34 100 40 12/15/17 14:00 56 12/15/17 13:43 57 145/83 12/15/17 12:00 58 12/15/17 12:00 40 12/15/17 12:00 98.2 58 22 146/92 (110) 95 12/15/17 11:52 99 40 12/15/17 10:00 56 (Aftab Newman) Physical Examination GENERAL: Comatose, intubated & mechanically ventilated. Propofol 50 mcg/kg/min & midazolam 2 mg/hr infusing for sedation. Fentanyl infusing at 250 mcg/hr for pain control. No apparent distress. SKIN: Anterior neck surgical incision well approximated w/intact steri-strips, no drainage, erythema or streaking noted, dressing intact. Purpura to both distal lower extremities. HEENT: Normocephalic, atraumatic. Pupils 2 mm, nonreactive. Orally intubated. OGT. NECK: [place] J cervical collar in place. Intact dressing to anterior surgical incision. No JVD. Trachea midline. MUSCULOSKELETAL: No evident clubbing or deformities. No response to any stimulation. NEUROLOGICAL: Comatose but sedated. No eye opening to any stimulation. Pupils 2 mm, nonreactive. Trace corneal reflex bilaterally. Nonverbal, intubated. No cough reflex to suctioning. Did not follow any commands. No extremity response to any stimulation. (Aftab Newman) Lab, Micro, Other Results Laboratory Tests Test 12/16/17 05:20 12/17/17 04:30 12/18/17 04:25 White Blood Count 15.6 TH/MM3 10.3 TH/MM3 Red Blood Count 2.84 MIL/MM3 2.52 MIL/MM3 Hemoglobin 7.7 GM/DL 7.1 GM/DL Hematocrit 24.2 % 21.6 % Mean Corpuscular Volume 85.1 FL 85.7 FL Mean Corpuscular Hemoglobin 27.2 PG 28.0 PG Mean Corpuscular Hemoglobin Concent 32.0 % 32.7 % Red Cell Distribution Width 16.9 % 17.2 % Platelet Count 133 TH/MM3 131 TH/MM3 Mean Platelet Volume 9.9 FL 10.3 FL Neutrophils (%) (Auto) 89.0 % 85.8 % Lymphocytes (%) (Auto) 6.5 % 8.3 % Monocytes (%) (Auto) 3.9 % 5.0 % Eosinophils (%) (Auto) 0.4 % 0.2 % Basophils (%) (Auto) 0.2 % 0.7 % Neutrophils # (Auto) 13.9 TH/MM3 8.8 TH/MM3 Lymphocytes # (Auto) 1.0 TH/MM3 0.9 TH/MM3 Monocytes # (Auto) 0.6 TH/MM3 0.5 TH/MM3 Eosinophils # (Auto) 0.1 TH/MM3 0.0 TH/MM3 Basophils # (Auto) 0.0 TH/MM3 0.1 TH/MM3 CBC Comment DIFF FINAL DIFF FINAL Differential Comment Blood Urea Nitrogen 47 MG/DL 59 MG/DL Creatinine 1.51 MG/DL 2.13 MG/DL Random Glucose 101 MG/DL 79 MG/DL Total Protein 6.8 GM/DL 6.9 GM/DL Albumin 1.0 GM/DL 1.0 GM/DL Calcium Level 8.0 MG/DL 7.9 MG/DL Alkaline Phosphatase 126 U/L 218 U/L Aspartate Amino Transf (AST/SGOT) 27 U/L 27 U/L Alanine Aminotransferase (ALT/SGPT) 10 U/L 15 U/L Total Bilirubin 0.3 MG/DL 0.4 MG/DL Sodium Level 149 MEQ/L 144 MEQ/L Potassium Level 4.5 MEQ/L 5.1 MEQ/L Chloride Level 119 MEQ/L 116 MEQ/L Carbon Dioxide Level 22.2 MEQ/L 18.3 MEQ/L Anion Gap 8 MEQ/L 10 MEQ/L Estimat Glomerular Filtration Rate 49 ML/MIN 33 ML/MIN Random Vancomycin Level 27.4 COMMENT 20.9 COMMENT 18.6 COMMENT Magnesium Level 2.3 MG/DL (Aftab Newman) Medical Decision Making Impression and Plan Impression: 1. Extensive cervical and upper thoracic anterior epidural abscess with significant canal and cord compromise. 2. C5-6 and C6-7 discitis. Significant destruction of the C6 vertebral body with osteomyelitis 3. History of IV drug abuse 4. History of bacterial endocarditis Postoperative Diagnosis: 1. Cervical epidural abscess 2. Cervical intradural abscess Patient's prognosis remains poor. He continues to be sedated with 2 medications. He had no motor response to any stimulation. Pupils equal, nonreactive, w/mild corneal reflex bilaterally. No cough reflex. Past 24 hrs: 99.0 T max. Worsening bradycardia. SBP into 90s. Reviewed labs for today. Resolution of leukocytosis. Drop in haemoglobin level & platelet count. Sodium 144. Worsening renal function. Continued increase in alk phos. Abscess, blood & sputum cultures all positive for methicillin resistant Staphylococcus aureus. MRI cervical spine demonstrated s/p C5-C7 ACDF; there is a continued anterior fluid collection, epidural vs subdural collection, extending from the tip of the dens to the T2 level, similar to prior exam; mild thecal sac narrowing throughout w/CSF seen around the cord; continued prevertebral fluid/ inflammatory change. MRI thoracic spine demonstrated an anterior extra-axial fluid collection extending from the dens to T2, does not appear significant changed, possible anterior epidural or subdural abscess; increased signal throughout the thoracic spine epidural space from T2-T3 through T11-T12 levels concerning for abscess; mild disc changes at T3-T4 through T6-T7 levels w/significant stenosis , disc changes not seen. Multiple pulmonary masses, areas of consolidation, and effusions. MRI lumbar spine demonstrated abnormal signal throughout the epidural space, concerning for infection; more focal anterior epidural collections at L4 & L5 and upper sacral regions concerning for abscess; severe thecal sac narrowing at the L1 level and extending into the sacrum; there is no significant CSF seen around the nerve roots; increased signal within the L5-S1 disc space anteriorly, posterior disc margin appears intact which is nonspecific and early infection cannot be ruled out but there is no bony destruction. POD #10 () s/p: 1. C5-6 and C6-7 anterior cervical discectomy, evacuation of cervical epidural and intradural abscess. 2. C5-6 and C6-7 anterior interbody fusion, allograft bone 3. C5-7 anterior cervical instrumentation ARELIS drain d/c'd . Plan: Primary & critical care management per Central Station Operator. Neuro checks. Wean sedation & ventilation as appropriate. [place] J cervical collar at all times. Monitor ARELIS drain output. Mobilise patient w/assistance when appropriate. Physical & Occupational Therapy eval & tx. "Questionable role for further surgical intervention given patient's extensive infectious disease including pulmonary lesions and overall poor prognosis" - Dr Chu at 1944 (Aftab Newman) Attending Statement The exam, history, and the medical decision-making described in the above note were completed with the assistance of the mid-level provider. I reviewed and agree with the findings presented. I attest that I had a [id number] encounter with the patient on the same day, and personally performed and documented my assessment and findings in the medical record. Family has elected withdrawal from artificial support (Ryan Chu MD) Aftab Newman Dec 18, 2017 09:34 Ryan Chu MD Dec 19, 2017 18:05
[2017-12-18] MEDS ORDERED: fentaNYL DRIP 250 ML IV PRN (10:15)
[2017-12-18] MEDS ORDERED: LORazepam 2 MG/ML VIAL IV PUSH ONE ×2 (10:15→10:30)
[2017-12-18] MEDS ORDERED: HYOSCYAMINE 0.5 MG/ML AMP IV PUSH ONE (10:15)
[2017-12-18] MEDS ORDERED: HYDROmorphone HCL PF 2 MG/ML VIAL IV PUSH ONE ×2 (10:15→10:30)
[2017-12-18] MEDS ORDERED: MIDAZOLAM 50 MG/50 ML INJ 50 ML IV PRN (10:15)
--- NOTE | 2017-12-18 10:37 | HHI.HCPN ---
Reason for visit a. To assist with evaluation and management of symptoms including: Dyspnea, pain b. To assist medical decision maker(s) with: better understanding of current medical conditions; weighing benefits/burdens of medical treatment options; making medical treatment decisions. . Subjective/Interval History Patient seen and examined in ICU. BrotherMando and friend, Malathi at bedside. Also present HELIO Sahni and HELIO Araujo. Patient remains intubated on mechanical ventilation, FiO2 50%/ PEEP 12. Sedated on Propofol, Fentanyl and Versed drip. No evidence of clinical or neurologic improvement. Remains bradycardic and hypotensive. Hemoglobin dropping 7.1 today. Worsening creatinine from 1.51 to 2.13 today. Albumin 1.0. Sputum and blood cultures growing MRSA. . Family/friend interactions Met with brotherMando (HCP) and friend Malathi at bedside. Mando has decided patient would not want to live like this and wants to proceed with transition to comfort measures with compassionate withdrawal of life support today. He is very concerned that he does not want his brother to suffer anymore. He wants to ensure he has enough medication for comfort given his history of drug abuse and suspected high drug tolerance. Dr. Michel also indicates patient was difficult to sedate. Declined computer systems hardware analyst services or hospice at this time. Anticipatory guidance provided. Questions answered. . Advance Directives Advance Directive Specifics Health Care Surrogate(s): Patient does not have capacity for medical decision-making at this time. Palliative care spoke to the patient's father who has opted out of healthcare proxy decision making. He states the patient was never and does not have children. His only reported sibling, Mando, lives locally and is willing to act in the role of healthcare proxy decision making. . Documented care wishes: None available. . Significant change in goals: NO CODE. Transition to comfort with compassionate withdrawal of life support today. . Objective Vital Signs Date Time Temp Pulse Resp B/P (MAP) Pulse Ox O2 Delivery O2 Flow Rate FiO2 12/18/17 08:15 93 50 12/18/17 06:00 48 12/18/17 04:00 47 12/18/17 04:00 98.7 47 22 96/58 (71) 96 12/18/17 04:00 50 12/18/17 03:31 90 50 12/18/17 02:00 46 12/18/17 00:00 97.7 45 22 94/54 (67) 97 12/18/17 00:00 50 12/18/17 00:00 45 12/17/17 23:33 98 50 12/17/17 22:00 46 12/17/17 20:25 92 50 12/17/17 20:00 46 12/17/17 20:00 50 12/17/17 20:00 97.7 46 22 110/70 (83) 94 12/17/17 19:00 94 Mechanical Ventilator 50 12/17/17 18:00 45 12/17/17 16:00 50 12/17/17 16:00 98.8 46 22 95/55 (68) 96 12/17/17 16:00 46 12/17/17 14:00 48 12/17/17 12:00 98.5 52 22 122/69 (86) 95 12/17/17 12:00 52 12/17/17 12:00 50 12/17/17 11:24 94 50 Intake & Output 12/18/17 12/18/17 07:00 19:00 Intake Total 1086.1 ml 400 ml Output Total 350 ml Balance 736.1 ml 400 ml IV Total 950.1 ml 400 ml Tube Feeding 36 ml Other 100 ml Output Urine Total 350 ml Chest Tube Drainage Total 0 ml # Bowel Movements 1 Physical Exam CONSTITUTIONAL/GENERAL: This is an adequately nourished patient, currently intubated on mechanical ventilator TUBES/LINES/DRAINS: PIV 2, left subclavian central line, left-sided chest tube , Mixon catheter, OGT, SCDs SKIN: No jaundice, rashes, or lesions. Ecchymoses on upper extremities. Scabbed areas on left forearm/wrist. Skin temperature appropriate. Not diaphoretic. EYES: Pupils round and reactive, sluggish. NECK: Trachea midline. Supple, nontender. No palpable thyroid enlargement or nodularity. CARDIOVASCULAR: bradycardic. RESPIRATORY/CHEST: Intubated on mechanical ventilation. Left-sided chest tube to suction. GASTROINTESTINAL: Abdomen firm, mildly distended. Bowel sounds present. GENITOURINARY: Without palpable bladder distension. Mixon catheter in place. MUSCULOSKELETAL: Extremities without clubbing or cyanosis. 3+ edema in feet and hands bilaterally. NEUROLOGICAL: Sedated on Propofol, Fentanyl and Versed. Does not respond to verbal stimuli or withdraw to painful stimuli PSYCHIATRIC: Unable to assess given current clinical condition. . Diagnostic Tests Laboratory Laboratory Tests Test 12/16/17 05:20 12/17/17 04:30 12/18/17 04:25 White Blood Count 15.6 TH/MM3 (4.0-11.0) 10.3 TH/MM3 (4.0-11.0) Red Blood Count 2.84 MIL/MM3 (4.50-5.90) 2.52 MIL/MM3 (4.50-5.90) Hemoglobin 7.7 GM/DL (13.0-17.0) 7.1 GM/DL (13.0-17.0) Hematocrit 24.2 % (39.0-51.0) 21.6 % (39.0-51.0) Mean Corpuscular Volume 85.1 FL (80.0-100.0) 85.7 FL (80.0-100.0) Mean Corpuscular Hemoglobin 27.2 PG (27.0-34.0) 28.0 PG (27.0-34.0) Mean Corpuscular Hemoglobin Concent 32.0 % (32.0-36.0) 32.7 % (32.0-36.0) Red Cell Distribution Width 16.9 % (11.6-17.2) 17.2 % (11.6-17.2) Platelet Count 133 TH/MM3 (150-450) 131 TH/MM3 (150-450) Mean Platelet Volume 9.9 FL (7.0-11.0) 10.3 FL (7.0-11.0) Neutrophils (%) (Auto) 89.0 % (16.0-70.0) 85.8 % (16.0-70.0) Lymphocytes (%) (Auto) 6.5 % (9.0-44.0) 8.3 % (9.0-44.0) Monocytes (%) (Auto) 3.9 % (0.0-8.0) 5.0 % (0.0-8.0) Eosinophils (%) (Auto) 0.4 % (0.0-4.0) 0.2 % (0.0-4.0) Basophils (%) (Auto) 0.2 % (0.0-2.0) 0.7 % (0.0-2.0) Neutrophils # (Auto) 13.9 TH/MM3 (1.8-7.7) 8.8 TH/MM3 (1.8-7.7) Lymphocytes # (Auto) 1.0 TH/MM3 (1.0-4.8) 0.9 TH/MM3 (1.0-4.8) Monocytes # (Auto) 0.6 TH/MM3 (0-0.9) 0.5 TH/MM3 (0-0.9) Eosinophils # (Auto) 0.1 TH/MM3 (0-0.4) 0.0 TH/MM3 (0-0.4) Basophils # (Auto) 0.0 TH/MM3 (0-0.2) 0.1 TH/MM3 (0-0.2) CBC Comment DIFF FINAL DIFF FINAL Differential Comment Blood Urea Nitrogen 47 MG/DL (7-18) 59 MG/DL (7-18) Creatinine 1.51 MG/DL (0.60-1.30) 2.13 MG/DL (0.60-1.30) Random Glucose 101 MG/DL (74-106) 79 MG/DL (74-106) Total Protein 6.8 GM/DL (6.4-8.2) 6.9 GM/DL (6.4-8.2) Albumin 1.0 GM/DL (3.4-5.0) 1.0 GM/DL (3.4-5.0) Calcium Level 8.0 MG/DL (8.5-10.1) 7.9 MG/DL (8.5-10.1) Alkaline Phosphatase 126 U/L (45-117) 218 U/L (45-117) Aspartate Amino Transf (AST/SGOT) 27 U/L (15-37) 27 U/L (15-37) Alanine Aminotransferase (ALT/SGPT) 10 U/L (12-78) 15 U/L (12-78) Total Bilirubin 0.3 MG/DL (0.2-1.0) 0.4 MG/DL (0.2-1.0) Sodium Level 149 MEQ/L (136-145) 144 MEQ/L (136-145) Potassium Level 4.5 MEQ/L (3.5-5.1) 5.1 MEQ/L (3.5-5.1) Chloride Level 119 MEQ/L (98-107) 116 MEQ/L (98-107) Carbon Dioxide Level 22.2 MEQ/L (21.0-32.0) 18.3 MEQ/L (21.0-32.0) Anion Gap 8 MEQ/L (5-15) 10 MEQ/L (5-15) Estimat Glomerular Filtration Rate 49 ML/MIN (>89) 33 ML/MIN (>89) Random Vancomycin Level 27.4 COMMENT 20.9 COMMENT 18.6 COMMENT Magnesium Level 2.3 MG/DL (1.5-2.5) Result Diagram: 12/18/175 12/18/175 Microbiology Microbiology Date/Time Source Procedure Growth Status 12/17/17 13:18 Blood Peripheral Aerobic Blood Culture Pending Received 12/17/17 13:18 Blood Peripheral Anaerobic Blood Culture Pending Received 12/17/17 13:13 Blood Peripheral Aerobic Blood Culture Pending Received 12/17/17 13:13 Blood Peripheral Anaerobic Blood Culture Pending Received Imaging Last Impressions Chest X-Ray 12/14/17 0000 Signed Impressions: CONCLUSION: Improvement as above. Thoracic Spine MRI 12/11/17 0000 Signed Impressions: CONCLUSION: 1. There is an anterior extra-axial fluid collection extending from the dens t o T2. This was present on the prior cervical spine and does not appear signific ant changed. This could be an anterior epidural or subdural abscess. 2. Increased signal throughout the epidural space throughout the thoracic spin e extending from the T2-T3 through the T11-T12 level concerning for abscess thr oughout this region. 3. Mild disc changes at the T3-T4 through T6-T7 levels as described above. Sig nificant stenosis from the disc changes is not seen. 4. Multiple pulmonary masses, areas of consolidation, and effusions. Lumbar Spine MRI 12/11/17 0000 Signed Impressions: CONCLUSION: 1. Abnormal signal seen throughout the epidural space. This concerning for inf ection. 2. More focal anterior epidural collections at the L4 and L5 and upper sacral regions concerning for abscess. 3. There is severe narrowing of the thecal sac beginning at the L1 level and e xtending into the sacrum. CSF is seen not seen around the nerve roots throughou t these levels. 4. Increased signal within the L5-S1 disc space anteriorly. The posterior dis c margin appears intact. This is nonspecific. Early infection cannot be ruled o ut. There is no bony destruction. Cervical Spine MRI 12/11/17 0000 Signed Impressions: CONCLUSION: 1. Status post placement of anterior cervical fusion plate at the C5-C7 levels . 2. Continued anterior fluid collection likely related to an epidural versus valles bdural collection. This extends from the tip of the dens to the T2 level. This looks similar to the prior exam. There is mild narrowing of the thecal sac thro ughout however there is CSF seen around the cord throughout. 3. Continued prevertebral fluid/inflammatory change. Cervical Spine X-Ray 12/08/17 0000 Signed Impressions: CONCLUSION: Inter vertebral discs are in place Chest CT 12/06/172158 Signed Impressions: CONCLUSION: 1. There are numerous patchy infiltrates throughout the lungs left greater eliana n right. Some of the infiltrates are borderline cavitary particularly in the le ft upper lobe. Moderate-sized bilateral pleural effusions. The scattered pulmon gus disease is new since February 2017 Renal Ultrasound 12/06/17 0000 Signed Impressions: CONCLUSION: 1. Both kidneys are echogenic suggesting chronic medical renal disease. Small cyst lower pole right kidney . Procedures 12/08/17: Intubation/NGT 12/08/17: Right sided percutaneous pigtail tube thoracostomy 12/08/17: Left subclavian central line . 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 Spiritual: Pending conversation with patient's family Legal: Patient does not have capacity for medical decision-making at this time. Palliative care spoke to the patient's father who has opted out of healthcare proxy decision making. He states the patient was never and does not have children. His only reported sibling, Mando, lives locally and is willing to act in the role of healthcare proxy decision making. Ethical issues impacting care: No known ethical issues impacting care at this time. . Important Contacts Edy Duncan, father: [phone] Mando Duncan, brother: [phone] . Prognosis Patient is a known IV drug user with a history of endocarditis status post cervical decompression and cage fusion secondary to cervical epidural abscess and discitis. MRI spine done on 12/11/17 showing persistent abscess along the cervical/thoracic and lumbar spine. Patient is not a surgical candidate due to the extent of abscess formation. Medical attending and consulting MD agree patient has a terminal condition with no reasonable chance for recovery and agree with family decision to transition to comfort and withdrawal of life support. . Code Status: No Code Plan * Decision-making: Patient does not have capacity for medical decision-making at this time. Palliative care spoke to the patient's father who has opted out of healthcare proxy decision making. He states the patient was never and does not have children. His only reported sibling, Mando, lives locally and is willing to act in the role of healthcare proxy decision making. * Met with brother, Mando (HCP) and friend Malathi. Mando has decided patient would not want to live like this and wants to proceed with transition to comfort measures with compassionate withdrawal of life support today. He is very concerned that he does not want his brother to suffer anymore. He wants to ensure he has enough medication for comfort given his history of drug abuse and suspected high drug tolerance. Dr. Michel also indicates patient was difficult to sedate. Anticipatory guidance provided. * Declined computer systems hardware analyst services or hospice at this time. * Exhibits B & C signed on chart. * Discussed with nursing staff, Dr. Michel, Dr. Liang and neurosurgery. * Symptom management- Pain and dyspnea: Multifactorial. Postoperative pain, infection/abscess, invasive lines, bedbound status, immobility, withdrawal. Plan for transition to comfort measures. Orders written for comfort meds. Will continue Fentanyl and Versed with increase dose due to history of drug abuse and medication tolerance. Will have PRN Dilaudid and Lorazepam available if needed for shortness of brain, tachypnea, pain, anxiety. * Palliative care will continue to follow this patient throughout his hospitalization to establish trust, assist with symptom management and clarification of medical treatment goals. . Attestation To help prompt me to consider important information that might be impacting today's encounter and assessment, information from prior notes written by myself or my colleagues may have been "brought forward" into today's note. My signature on this note, however, is an attestation that I personally performed the exam, history, and/or decision-making noted today, and, unless otherwise indicated, the interactions with patient, family, and staff as well as the review of records all occurred today. I also attest that the listed assessment and stated plan reflect my best clinical judgment today based on the combination of historical information, prior notes, and today's exam/ interactions. When time spent is documented, it refers only to time spent today by the signer, or if indicated, combined time spent today by collaborating physician/nurse practitioner. Chichi Phillips Dec 18, 2017 10:37
[2017-12-18] MEDS ORDERED: LORazepam 2 MG/ML VIAL IV PUSH PRN ×3 (10:45)
[2017-12-18] MEDS ORDERED: FUROSEMIDE 20 MG/2 ML VIAL IV PUSH PRN (10:45)
[2017-12-18] MEDS ORDERED: HYOSCYAMINE 0.5 MG/ML AMP IV PUSH PRN (10:45)
[2017-12-18] MEDS ORDERED: HYDROmorphone HCL PF 2 MG/ML VIAL IV PUSH PRN ×2 (10:45)
[2017-12-18] MEDS ORDERED: ACETAMINOPHEN 650 MG SUPP RECTAL PRN (10:45)
[2017-12-18] MEDS: SODIUM CHLORIDE 0.9% FLUSH 10 ML FLUSH IV FLUSH SCH (11:25)
== END 2017-12-18 15:55 | disposition expired | DRG 853 ==
LOC: NEPC 19:36 → NEDA 22:11 → NEPHCDU 23:15 → N03B 12-07 18:30
PROVIDERS: ADMIT Internal Medicine Critical Care Medicine; ATTEND Internal Medicine Critical Care Medicine
PROC: 0J9G0ZX Drainage of Right Lower Arm Subcutaneous Tissue and Fascia, Open Approach, Diagnostic (ICD-10-PCS; 2017-12-06)
PROC: 0RG20A0 Fusion of 2 or more Cervical Vertebral Joints with Interbody Fusion Device, Anterior Approach, Anterior Column, Open Approach (ICD-10-PCS; 2017-12-07)
PROC: 0RG20K0 Fusion of 2 or more Cervical Vertebral Joints with Nonautologous Tissue Substitute, Anterior Approach, Anterior Column, Open Approach (ICD-10-PCS; 2017-12-07)
PROC: 0RB30ZZ Excision of Cervical Vertebral Disc, Open Approach (ICD-10-PCS; 2017-12-07)
PROC: 009U0ZX Drainage of Spinal Canal, Open Approach, Diagnostic (ICD-10-PCS; 2017-12-07)
PROC: 0PB30ZZ Excision of Cervical Vertebra, Open Approach (ICD-10-PCS; 2017-12-07)
PROC: 0T9B70Z Drainage of Bladder with Drainage Device, Via Natural or Artificial Opening (ICD-10-PCS; 2017-12-07)
PROC: 0RB30ZZ Excision of Cervical Vertebral Disc, Open Approach (ICD-10-PCS; principal; 2017-12-07 21:47)
PROC: 5A1955Z Respiratory Ventilation, Greater than 96 Consecutive Hours (ICD-10-PCS; 2017-12-08)
PROC: 0DH67UZ Insertion of Feeding Device into Stomach, Via Natural or Artificial Opening (ICD-10-PCS; 2017-12-08)
PROC: 0W9B30Z Drainage of Left Pleural Cavity with Drainage Device, Percutaneous Approach (ICD-10-PCS; 2017-12-08)
PROC: 30233N1 Transfusion of Nonautologous Red Blood Cells into Peripheral Vein, Percutaneous Approach (ICD-10-PCS; 2017-12-14)
DX: A41.02 Sepsis due to Methicillin resistant Staphylococcus aureus (principal); G06.1 Intraspinal abscess and granuloma; I26.90 Septic pulmonary embolism without acute cor pulmonale; N17.0 Acute kidney failure with tubular necrosis; I33.9 Acute and subacute endocarditis, unspecified; J90 Pleural effusion, not elsewhere classified; J96.01 Acute respiratory failure with hypoxia; J96.02 Acute respiratory failure with hypercapnia; G93.41 Metabolic encephalopathy; E43 Unspecified severe protein-calorie malnutrition; M46.22 Osteomyelitis of vertebra, cervical region; I76 Septic arterial embolism; E87.2 Acidosis; L02.413 Cutaneous abscess of right upper limb; L02.414 Cutaneous abscess of left upper limb; L03.114 Cellulitis of left upper limb; M50.022 Cervical disc disorder at C5-C6 level with myelopathy; E87.1 Hypo-osmolality and hyponatremia; I82.403 Acute embolism and thrombosis of unspecified deep veins of lower extremity, bilateral; J95.811 Postprocedural pneumothorax; M25.78 Osteophyte, vertebrae; F15.10 Other stimulant abuse, uncomplicated; F19.10 Other psychoactive substance abuse, uncomplicated; F12.90 Cannabis use, unspecified, uncomplicated; E87.70 Fluid overload, unspecified; Z86.61 Personal history of infections of the central nervous system; R00.0 Tachycardia, unspecified; E86.0 Dehydration; E87.6 Hypokalemia; R07.89 Other chest pain; I10 Essential (primary) hypertension; M46.42 Discitis, unspecified, cervical region; R65.20 Severe sepsis without septic shock; Z72.0 Tobacco use; F11.10 Opioid abuse, uncomplicated; R20.0 Anesthesia of skin; Z51.5 Encounter for palliative care; G70.9 Myoneural disorder, unspecified; R21 Rash and other nonspecific skin eruption; D64.9 Anemia, unspecified; I48.91 Unspecified atrial fibrillation; I49.3 Ventricular premature depolarization; G89.18 Other acute postprocedural pain; D69.6 Thrombocytopenia, unspecified
CPT/HCPCS: 10060; 36430; 71045; 71250; 72020; 72141; 72146; 72148; 76000; 76775; 80048; 80053; 80202; 80307; 81001; 82550; 82552; 82565; 82805; 83605; 83690; 83735; 83880; 84484; 85007; 85014; 85018; 85025; 85027; 85610; 85652; 85730; 86140; 86403; 86850; 86900; 86901; 86920; 87015; 87040; 87070; 87077; 87086; 87102; 87116; 87147; 87186; 87205; 87206; 87641; 93005; 93308; 94002; 94003; 94150; 94667; 96361; 96365; 96367; C1713; J0153; J0282; J0692; J0712; J1100; J1160; J1170; J1230; J1580; J1650; J1980; J2060; J2250; J2370; J2543; J3010; J3370; J7030; J7040; J7050; J7060; J7120; L0150; L0172; P9016